=== PATIENT | male | born 1945 ===

== ENCOUNTER → 2022-10-13 | Emergency (ER) | payer OTHER ==
[~2022-10-13] MED LIST: ACETAMINOPHEN 325 MG TABLET PO PRN; ASPIRIN 81 MG CHEWABLE TABLET PO SCH; D10W 125 ML IV PRN; D50W 25 GM/50 ML SYRINGE IV PRN; GLUCAGON 1 MG/VIAL IM PRN; HEPARIN 5000 UNIT/ML 1 ML VIAL SQ SCH; HYDROCODONE/APAP 10/325 TAB ONE; HYDROCODONE/APAP 10/325 TAB PO PRN; INSULIN -REGULAR HUMAN 50 UNIT/0.5 ML ML SQ SCH; MORPHINE 2 MG/ML SYR ONE; ONDANSETRON 4 MG/2 ML VIAL IV PRN; ONDANSETRON 4 MG/2 ML VIAL ONE
[2022-10-13 05:10] LABS: Absolute Lymphocytes (CBC) 0.5 K/uL (0.7-4.9); Hematocrit 30.9 % (39.6-49.0); Lymphocytes % 11.2 % (15.3-44.8); MPV 10.4 fL (7.6-11.3); RBC Red Blood Cell Count 3.36 M/uL (4.33-5.43)
[2022-10-13 05:30] LABS: Potassium 5.1 mEq/L (3.5-5.1); Troponin High Sensitivity 34.9 pg/mL (<58.9)
--- NOTE | 2022-10-13 06:56 | EDPHYS ---
Physician Documentation [facility] Name: Jose Angel Miles Age: 76 yrs Sex: Male : 1945 Arrival Date: 10/13/2022 Time: : Bed 5 Private MD: ED Physician Collin Stone HPI: 10/13 05:11 This 76 yrs old Male presents to ER via EMS with complaints of Right hip and shoulder kdr pain. 05:11 Patient and report that he fell earlier today while at dialysis. states that kdr when she arrived to pick him up she saw him on the floor. She states that he is legally blind and apparently did not see a bump on the floor that he tripped over. Patient's states that she was able to help him to his feet and he was able to get into the car and home then up some stairs. Once he laid down for a while, his right hip pain and shoulder pain began to worsen and now he is unable to bear weight on the right side. Patient denies hitting his head or any loss of consciousness. He does not appear acutely ill or in need of emergent intervention but certainly is uncomfortable on the right side of his body. Onset: The symptoms/episode began/occurred suddenly, just prior to arrival, today. Severity of symptoms: At their worst the symptoms were mild in the emergency department the symptoms are unchanged. The patient has not experienced similar symptoms in the past. The patient has not recently seen a physician. Historical: - Allergies: 04:41 Prednisone; as6 04:41 Metoprolol Tartrate; as6 - PMHx: 04:41 Myocardial infarction; Diabetes mellitus; dialysis MWF; as6 - PSHx: 04:41 knee; Coronary artery bypass graft; eye; pacemaker; as6 - Immunization history:: Client reports receiving the 2nd dose of the Covid vaccine, Anevia. - Social history:: Smoking status: Patient/guardian denies using tobacco, the patient reports quitting approximately 1 years ago. ROS: 05:11 Constitutional: Negative for fever, chills, and weight loss, Eyes: Negative for injury, kdr pain, redness, and discharge, ENT: Negative for injury, pain, and discharge, Neck: Negative for injury, pain, and swelling, Cardiovascular: Negative for chest pain, palpitations, and edema, Respiratory: Negative for shortness of breath, cough, wheezing, and pleuritic chest pain, Abdomen/GI: Negative for abdominal pain, nausea, vomiting, diarrhea, and constipation, Back: Negative for injury and pain, : Negative for injury, bleeding, discharge, and swelling, Skin: Negative for injury, rash, and discoloration, Neuro: Negative for headache, weakness, numbness, tingling, and seizure activity. Psych: Negative for depression, anxiety, suicide ideation, homicidal ideation, and hallucinations, Allergy/Immunology: Negative for hives, rash, and allergies, Endocrine: Negative for neck swelling, polydipsia, polyuria, polyphagia, and marked weight changes, Hematologic/Lymphatic: Negative for swollen nodes, abnormal bleeding, and unusual bruising. 05:11 MS/extremity: Positive for injury or acute deformity, decreased range of motion, pain, tenderness, of the right femoral area, right hip, anterior aspect of right shoulder and posterior aspect of right shoulder. Exam: 04:39 ECG was reviewed by the Attending Physician. kdr 05:11 Constitutional: This is a well developed, well nourished patient who is awake, alert, kdr and in no acute distress. Head/Face: Normocephalic, atraumatic. Eyes: Pupils equal round and reactive to light, extra-ocular motions intact. Lids and lashes normal. Conjunctiva and sclera are non-icteric and not injected. Cornea within normal limits. Periorbital areas with no swelling, redness, or edema. Neck: Trachea midline, no thyromegaly or masses palpated, and no cervical lymphadenopathy. Supple, full range of motion without nuchal rigidity, or vertebral point tenderness. No Meningismus. Chest/axilla: Normal chest wall appearance and motion. Nontender with no deformity. No lesions are appreciated. Cardiovascular: Regular rate and rhythm with a normal S1 and S2. No gallops, murmurs, or rubs. Normal PMI, no JVD. No pulse deficits. Respiratory: Lungs have equal breath sounds bilaterally, clear to auscultation and percussion. No rales, rhonchi or wheezes noted. No increased work of breathing, no retractions or nasal flaring. Abdomen/GI: Soft, non-tender, with normal bowel sounds. No distension or tympany. No guarding or rebound. No evidence of tenderness throughout. Back: No spinal tenderness. No costovertebral tenderness. Full range of motion. Neuro: Awake and alert, GCS 15, oriented to person, place, time, and situation. Cranial nerves II-XII grossly intact. Motor strength 5/5 in all extremities. Sensory grossly intact. Cerebellar exam normal. Normal gait. Psych: Awake, alert, with orientation to person, place and time. Behavior, mood, and affect are within normal limits. 05:11 Musculoskeletal/extremity: Extremities: grossly normal except: noted in the right femoral area and right hip: decreased ROM, pain, tenderness, noted in the anterior aspect of right shoulder and posterior aspect of right shoulder: decreased ROM, pain. 05:11 Skin: Appearance: ecchymosis, noted on the, , that are moderate, that are marked, and are diffusely located, Patient has significant chronic ecchymosis on his extremities. Vital Signs: 04:41 BP 118 / 59; Pulse 54; Resp 18 S; Temp 97.9(TE); Pulse Ox 97% on R/A; Weight 68.04 kg as6 (R); Height 5 ft. 8 in. (R); Pain 3/10; 06:41 BP 105 / 57; Pulse 50; Resp 14; Pulse Ox 96% ; vc1 07:13 BP 109 / 60; Pulse 52; Resp 16; Pulse Ox 96% ; Pain 8/10; iw 08:26 BP 113 / 64; Pulse 51; Resp 18; Pulse Ox 96% on R/A; ld1 04:41 Body Mass Index 22.81 (68.04 kg, 172.72 cm) as6 04:41 Pain Scale: Adult as6 07:13 Pain Scale: Adult iw MDM: 06:55 Patient medically screened. kdr 21:56 Data reviewed: vital signs, nurses notes. ED course: Patient was stable in the ED and kdr admitted to the floor in good condition. The patient and his were happy with the care provided the plan for admission. 10/13 04:33 Order name: Basic Metabolic Panel [facility] 10/13 04:33 Order name: CBC with Diff [facility] 10/13 04:33 Order name: Troponin HS [facility] 10/13 04:39 Order name: CPK [facility] 10/13 09:26 Order name: Urinalysis w/ reflexes [facility] 10/13 09:26 Order name: Basic Metabolic Panel [facility] 10/13 09:26 Order name: CBC with Automated Diff EDMS 10/13 04:33 Order name: XRAY Chest (1 view) kdr 10/13 04:38 Order name: CT Traumagram (Head C Spine CAP wo con) kdr 10/13 04:38 Order name: XRAY Pelvis kdr 10/13 04:38 Order name: Shoulder Right (2 View) XRAY kdr 10/13 04:33 Order name: EKG; Complete Time: 04:34 kdr 10/13 09:26 Order name: Renal EDMS 10/13 04:33 Order name: Cardiac monitoring; Complete Time: 05:04 kdr 10/13 04:33 Order name: EKG - Nurse/Tech; Complete Time: 05:04 kdr 10/13 04:33 Order name: IV Saline Lock; Complete Time: 05:04 kdr 10/13 04:33 Order name: Labs collected and sent; Complete Time: 05:04 kdr 10/13 04:33 Order name: O2 Per Protocol; Complete Time: 04:40 kdr 10/13 04:33 Order name: O2 Sat Monitoring; Complete Time: 04:40 kdr Administered Medications: 05:04 Drug: morphine IVP or IV 2 mg Route: IVP; Infused Over: 4 mins; Site: right wrist; as6 05:04 Drug: Ondansetron IVP 4 mg Route: IVP; Site: right wrist; as6 07:14 Follow up: Response: No adverse reaction iw 06:25 Drug: morphine IVP or IV 2 mg Route: IVP; Infused Over: 4 mins; Site: right forearm; as6 07:14 Follow up: Response: No adverse reaction; Pain is unchanged, physician notified; Other; iw PAIN 01/28 09:08 Drug: HYDROcodone-acetaminophen PO 10 mg-325 mg 1 tabs Route: PO; iw Disposition Summary: 10/13/22 06:55 Hospitalization Ordered Hospitalization Status: Inpatient Admission kdr Provider: Merlin Sharma Location: Telemetry/MedSurg (Inpatient) kdr Condition: Fair kdr Problem: new kdr Symptoms: have improved kdr Bed/Room Type: Standard kdr Room Assignment: kdr Diagnosis - Right closed intertrochanteric fracture of the femur kdr Forms: - Medication Reconciliation Form kdr - SBAR form kdr Signatures: Dispatcher [employer] EDNJ Rittger, Collin, Emily Burroughs MD, RN RN iw Gonzalez Cohn, RN RN as6
--- NOTE | 2022-10-13 06:56 | ER ---
Nurse's Notes 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 pt went home and the pain as6 to his ride side of his body continued to grow so he decided to get checked out. Coronavirus screen: At this time, the client does not indicate any symptoms associated with coronavirus-19. Ebola Screen: No symptoms or risks identified at this time. Initial Sepsis Screen: Does the patient meet any 2 criteria? No. Patient's initial sepsis screen is negative. Does the patient have a suspected source of infection? No. Patient's initial sepsis screen is negative. Risk Assessment: Do you want to hurt yourself or someone else? Patient reports no desire to harm self or others. Onset of symptoms was October 12, 2022. 04:41 Acuity: SARINA 3 as6 04:41 Method Of Arrival: EMS: [facility] as6 Historical: - Allergies: 04:41 Prednisone; as6 04:41 Metoprolol Tartrate; as6 - PMHx: 04:41 Myocardial infarction; Diabetes mellitus; dialysis MWF; as6 - PSHx: 04:41 knee; Coronary artery bypass graft; eye; pacemaker; as6 - Immunization history:: Client reports receiving the 2nd dose of the Covid vaccine, pfizer. - Social history:: Smoking status: Patient/guardian denies using tobacco, the patient reports quitting approximately 1 years ago. Screenin:44 [facility] ED Fall Risk Assessment (Adult) History of falling in the last 3 months, as6 including since admission Yes- single mechanical fall (1 pt) Confusion or Disorientation No (0 pts) Intoxicated or Sedated No (0 pts) Impaired Gait No (0 pts) Mobility Assist Device Used No (0 pt) Altered Elimination No (0 pt) Score/Fall Risk Level 0 - 2 = Low Risk. Abuse screen: Denies threats or abuse. Denies injuries from another. Nutritional screening: No deficits noted. Tuberculosis screening: No symptoms or risk factors identified. Assessment: 05:21 General: Appears uncomfortable, Behavior is calm, cooperative. Pain: Complains of pain as6 in right arm and pelvis and right hip and right femoral area and posterior aspect of right shoulder and anterior aspect of right shoulder. Neuro: Level of Consciousness is awake, alert, obeys commands, Oriented to person, place, time, situation. Cardiovascular: Capillary refill < 3 seconds Patient's skin is warm and dry. Respiratory: Respiratory effort is even, unlabored, Respiratory pattern is regular, symmetrical, Breath sounds are clear bilaterally. GI: No deficits noted. No signs and/or symptoms were reported involving the gastrointestinal system. : No deficits noted. No signs and/or symptoms were reported regarding the genitourinary system. EENT: No deficits noted. No signs and/or symptoms were reported regarding the EENT system. Derm: Bruising that is dark purple, on right arm. 06:41 Reassessment: No changes from previously documented assessment. Patient and/or family vc1 updated on plan of care and expected duration. Pain level reassessed. Patient is alert, oriented x 3, equal unlabored respirations, skin warm/dry/pink. Patient states symptoms have not improved. 07:12 General: Appears uncomfortable, Behavior is cooperative. Pain: Complains of pain in iw right hip. Pain: Pain currently is 8 out of 10 on a pain scale. Neuro: Level of Consciousness is awake, alert, obeys commands, Oriented to person, place, time, situation. Cardiovascular: Patient's skin is warm and dry. Respiratory: Respiratory effort is even, unlabored, Respiratory pattern is regular. GI: Abdomen is flat, non-distended. Derm: Skin is pink, warm \T\ dry. Musculoskeletal: Range of motion: limited in right hip. 11:50 Reassessment: Patient appears in no apparent distress at this time. Patient and/or iw family updated on plan of care and expected duration. Pain level reassessed. Patient is alert, oriented x 3, equal unlabored respirations, skin warm/dry/pink. Vital Signs: 04:41 BP 118 / 59; Pulse 54; Resp 18 S; Temp 97.9(TE); Pulse Ox 97% on R/A; Weight 68.04 kg as6 (R); Height 5 ft. 8 in. (R); Pain 3/10; 06:41 BP 105 / 57; Pulse 50; Resp 14; Pulse Ox 96% ; vc1 07:13 BP 109 / 60; Pulse 52; Resp 16; Pulse Ox 96% ; Pain 8/10; iw 08:26 BP 113 / 64; Pulse 51; Resp 18; Pulse Ox 96% on R/A; ld1 04:41 Body Mass Index 22.81 (68.04 kg, 172.72 cm) as6 04:41 Pain Scale: Adult as6 07:13 Pain Scale: Adult iw ED Course: 04:27 Patient arrived in ED. rv1 04:32 Collin Stone MD is Attending Physician. kdr 04:40 Gonzalez Cohn, RENE is Primary Nurse. as6 04:40 Arm band placed on right wrist. as6 04:44 Triage completed. as6 04:45 Bed in low position. Call light in reach. Side rails up X2. as6 05:04 Inserted saline lock: 22 gauge in right wrist, using aseptic technique. Blood collected.as6 05:05 XRAY Chest (1 view) In Process Unspecified. EDMS 05:11 XRAY Pelvis In Process Unspecified. EDMS 05:11 Shoulder Right (2 View) XRAY In Process Unspecified. EDMS 05:22 CT Traumagram (Head C Spine CAP wo con) In Process Unspecified. EDMS 06:54 Merlin Sharma MD is Hospitalizing Provider. kdr 11:50 No provider procedures requiring assistance completed. iw Administered Medications: 05:04 Drug: morphine IVP or IV 2 mg Route: IVP; Infused Over: 4 mins; Site: right wrist; as6 05:04 Drug: Ondansetron IVP 4 mg Route: IVP; Site: right wrist; as6 07:14 Follow up: Response: No adverse reaction iw 06:25 Drug: morphine IVP or IV 2 mg Route: IVP; Infused Over: 4 mins; Site: right forearm; as6 07:14 Follow up: Response: No adverse reaction; Pain is unchanged, physician notified; Other; iw PAIN 01/28 09:08 Drug: HYDROcodone-acetaminophen PO 10 mg-325 mg 1 tabs Route: PO; iw Medication: 04:44 VIS not applicable for this client. as6 Outcome: 06:55 Decision to Hospitalize by Provider. kdr 12:11 Patient left the ED. iw Signatures: Dispatcher [employer] EDMS Collin Stone MD MD kdr Williams, Irene, RN RN iw Margareth Coe RN RN ld1 Gonzalez Cohn RN RN as6 Tiera Bone, RN RN vc1 Saud, Linette [facility]
--- NOTE | 2022-10-13 09:52 | P.HP ---
Certification for Inpatient Patient admitted to: Inpatient With expected LOS: >2 Midnights Patient will require the following post-hospital care: None Practitioner: I am a practitioner with admitting privileges, knowledge of patient current condition, hospital course, and medical plan of care. Services: Services provided to patient in accordance with Admission requirements found in Title 42 Section 412.3 of the Code of Federal Regulations <MichelleliliIrena novoa Marcus - Last Filed: 10/13/22 11:14> Patient History Date of Service: 10/13/22 Reason for admission: Right hip pain History of Present Illness: Patient is a 76-year-old male with a past medical history significant for DM 2, TN, ESRD, CHF who presents with complaint of right hip pain onset today. Patient reported that he fell after leaving dialysis yesterday. Patient was found on the floor by his spouse when she came to pick patient up. Patient reported that he went home and went to bed. This morning patient reported that he started having pain this morning when he woke up. Patient reported that he was unable to get out of bed and started having excruciating pain in the right knee. Patient rated pain as 10/10 in severity and described pain as sharp in quality. On examination patient noted with petechiae in the right hip and right knee as well as bilateral lower extremity edema. Patient also reports pain in the right shoulder. Patient denies any other signs and symptoms. Symptoms are aggravated or relieved by nothing. Family called EMS who brought patient to the hospital for medical evaluation. Of note, patient doctors are at [facility]. - Past Medical/Surgical History -: TN -: CAD -: ESRD -: DM 2 -: CABG - Family History Family History: Reviewed- Non-Contributory - Social History Smoking Status: Never smoker Alcohol use: No CD- Drugs: No Caffeine use: Yes Place of Residence: Home <Irena Boucher - Last Filed: 10/13/22 11:14> Date of Service: 10/13/22 <Merlin Sharma - Last Filed: 10/13/22 18:46> Allergies prednisone Allergy (Verified 10/13/22 07:30) Hives/Rash Review of Systems General: Unremarkable Eyes: Unremarkable ENT: Unremarkable Respiratory: Unremarkable Cardiovascular: Unremarkable Gastrointestinal: Unremarkable Genitourinary: Unremarkable Musculoskeletal: Shoulder Pain, Other (Right hip pain) Integumentary: Other (petechiae on right hip and Knee ) Neurological: Unremarkable Lymphatics: Unremarkable <CitlalyColtfara Novoa - Last Filed: 10/13/22 11:14> Physical Examination - Physical Exam General: Alert, In no apparent distress, Oriented x3, Cooperative HEENT: Atraumatic, PERRLA, Mucous membr. moist/pink, EOMI, Sclerae nonicteric Neck: Supple, 2+ carotid pulse no bruit, No LAD, Without JVD or thyroid abnormality Respiratory: Clear to auscultation bilaterally, Normal air movement Cardiovascular: Regular rate/rhythm, Normal S1 S2, Edema Capillary refill: <2 Seconds Gastrointestinal: Normal bowel sounds, Soft and benign, No tenderness Musculoskeletal: No clubbing, No swelling, No contractures, Tenderness Integumentary: No rashes, No breakdown, No significant lesion, Other (Right hip and knee petechiae) Neurological: Normal speech, Normal strength at 5/5 x4 extr, Normal tone, Normal affect Lymphatics: No axilla or inguinal lymphadenopathy - Studies Laboratory Data (last 24 hrs) 10/13/22 05:01: WBC 4.10 L, Hgb 9.9 L, Hct 30.9 L, Plt Count 79 L 10/13/22 05:01: Sodium 128 L, Potassium 5.1, BUN 51 H, Creatinine 3.31 H, Glucose 105 <Irena Boucher - Last Filed: 10/13/22 11:14> - Studies Laboratory Data (last 24 hrs) 10/13/22 05:01: WBC 4.10 L, Hgb 9.9 L, Hct 30.9 L, Plt Count 79 L 10/13/22 05:01: Sodium 128 L, Potassium 5.1, BUN 51 H, Creatinine 3.31 H, Glucose 105 <Merlin Sharma - Last Filed: 10/13/22 18:46> Assessment and Plan - Plan --Right hip pain. X-ray of right hip indicates an avulsion injury of the right greater trochanter. Orthopedic surgeon consulted. We will manage pain with current pain medication regimen. --DM2. BS monitoring with sliding scale insulin. --ESRD. Nephrology consulted. We will await further recommendations. --History of TN and CABG. Continue aspirin. --Anemia of chronic disease. H&H stable. We will continue to monitor hemoglobin and transfuse if hemoglobin less than 7.0 -- Hyponatremia. Nephrology on board. Further management per electrical linesworker. --Mild hyperkalemia. Potassium level 5.1. We will repeat a BMP and treat accordingly. Further management per electrical linesworker. --Thrombocytopenia. Family reported that patient had a biopsy with his doctors at [facility] to find out why patient is having persistent thrombocytopenia. Continue supportive care --Chronic systolic or diastolic CHF. Patient noted with bilateral lower extremity edema. Family reported that patient has a history of CHF. BNP pending. Dialysis schedule per nephrology schedule. Continue supportive care. --DVT prophylaxis with SCDs. Discharge Plan: Home Plan to discharge in: Greater than 2 days - Advance Directives Does patient have a Living Will: No Does patient have a Durable POA for Healthcare: No - Code Status/Comfort Care Code Status Assessed: Yes Physician Review: Patient Assessed, Agree with Above Assessment and Plan Critical Care: No <Irena Boucher - Last Filed: 10/13/22 11:14> Physician Review: Patient Assessed, Agree with Above Assessment and Plan Physician Review Additional Text: I was asked to admit Mr. Miles. However, when I came to the Emergency Department, he declined admission and stated that he would like to be transferred to [facility] for continuity of care. I completed doc-to-doc with Dr. Boaz Spears ([facility]), who has generously accepted transfer. Please refer to the Emergency Medicine documentation for the remainder of his ED course. Merlin Sharma M.D. <Merlin Sharma - Last Filed: 10/13/22 18:46>
--- NOTE | 2022-10-13 09:54 | P.HP ---
Patient History Date of Service: 10/13/22 Allergies prednisone Allergy (Verified 10/13/22 07:30) Hives/Rash Physical Examination - Studies Laboratory Data (last 24 hrs) 10/13/22 05:01: WBC 4.10 L, Hgb 9.9 L, Hct 30.9 L, Plt Count 79 L 10/13/22 05:01: Sodium 128 L, Potassium 5.1, BUN 51 H, Creatinine 3.31 H, Glucose 105 Assessment and Plan - Advance Directives Does patient have a Living Will: No Does patient have a Durable POA for Healthcare: No
[2022-10-13 12:34] VITALS: TEMP 97.9
[2022-10-13 12:35] VITALS: O2SAT 96
[2022-10-13 12:37] VITALS: BP 113/64
--- NOTE | 2022-10-13 17:12 | RAD REPORT ---
EXAM DESCRIPTION: CT - Head C Spine Cap Milvia Parker - 10/13/2022 6:37 am CLINICAL HISTORY: 76 years Male Fall from standing TECHNIQUE: Multiple axial CT images of the brain, cervical spine, chest, abdomen and pelvis were per formed followed by sagittal and coronal reconstructed images. The CT study is performed according to ALARA (as low as reasonably achievable) or ALARA/IMAGE GENTLY, with automatic adjustment of mA and/or kV according to patient size. Performed on: 10/13/2022 at 5:10 AM COMPARISON: None. FINDINGS: CT HEAD: There is no evidence of mass, acute mass effect or midline shift. There are no acute extra-axial flui d collections. There is no evidence of acute intracranial hemorrhage. The cerebral sulci and ventricles are prominent consistent with mild cerebral volume loss. There are scattered areas of decreased attenuation within the subcortical and periventricular white m atter most likely due to mild chronic microangiopathy. There are atherosclerotic calcifications along the cavernous carotid arteries and distal vertebral arteries. There is no significant mucosal thickening of the paranasal sinuses. The mastoid air cells are clear. The orbital contents are grossly unremarkable. No acute osseous abnormalities are identified. No focal soft tissue abnormalities are identified. CT CERVICAL SPINE: The cervical vertebrae are grossly normal in height. There is mild loss of height at C6 likely due to degenerative changes. There is mild anterolisthesis of C3 relative to C4 and C4 relative to C5, like ly degenerative in nature. There is moderate disc space narrowing at C5-C6 and C6-C7. Bone minerali zation is normal. There is mild degenerative spurring along the vertebral endplates throughout the cervical spine most pronounced at C5-C6 and C6-C7. The atlanto-axial articulation is preserved and th e odontoid process is intact. There is mild irregularity of the posterior aspect of the right occipital condyle and right lateral a spect of the odontoid process likely related to chronic degenerative changes. Subtle small avulsion f ractures are not entirely excluded but considered less likely. There is normal alignment of the facet joints on the parasagittal images. There are mild to moderate degenerative changes of the facet joints. There is no definite acute fracture or acute subluxation. There is no significant canal stenosis. T here is multilevel bilateral neural foraminal stenosis secondary to uncovertebral joint and facet rogelio nt hypertrophy. There are calcifications along the carotid and vertebral arteries. The lung apices are clear. CHEST: Lungs: The lungs are well-expanded. There is mild bibasilar opacification likely due to a combination of fibrosis and atelectasis. Trace effusions are not excluded. There is mild elevation of the left h emidiaphragm. Heart: The heart is normal in size. There is no pericardial effusion. There are moderate coronary artery calcifications. There is a single lead left subclavian AICD. There are remote postsurgical ch anges of the mediastinum. Mediastinum: The mediastinum is unremarkable. The mediastinal vessels are normal in caliber and con tour. There are moderate atherosclerotic calcifications along the thoracic aorta. Bones: No acute osseous abnormalities are identified. There are degenerative changes of the shoulders and spine. Soft tissues: No focal soft tissue abnormalities are identified. Lymphadenopathy: No pathologic hilar, mediastinal or axillary lymphadenopathy is identified. ABDOMEN/PELVIS: Limitations: There is artifact on the images related to the patient's arms being down by his side dur ing scanning. This results in degradation of image quality. Liver: The liver is normal in size and configuration. No focal hepatic abnormalities are identified. Liver attenuation is within normal limits. Spleen: The spleen is normal is size, configuration and attenuation. Gallbladder and bile duct: The gallbladder is well distended and unremarkable. There is no biliary ductal dilatation. Pancreas: The pancreas is grossly normal in size and configuration. Adrenal Glands: There is mild fullness of the left adrenal gland. The right adrenal gland is grossly unremarkable. Kidneys: The kidneys are normal in size and configuration. There is no evidence of hydronephrosis. Th ere is no evidence of nephrolithiasis. There are renal vascular calcifications. No definite solid or cystic renal mass lesions are identified. Stomach: The stomach is grossly normal. There is a small sliding-type hiatal hernia. Bowel: The bowel gas pattern is non specific and non obstructive. Appendix: The appendix is normal. Free air: There is no evidence of free air. Free fluid: There is a small volume of nonspecific free fluid in the pelvis, anterior to the liver an d left paracolic gutter. Vasculature: The aorta is normal in caliber and contour. There are moderate atherosclerotic calcifica tions along the abdominal aorta and major branch vessels. The inferior vena cava is grossly unremarka ble. Lymphadenopathy: No pathologic lymphadenopathy is identified. Bladder: The bladder is well distended and smooth in contour. Bilateral bladder diverticula are suspe cted. Reproductive: The prostate gland is grossly within normal limits. Bones: There is a mildly displaced intertrochanteric fracture of the proximal right femur. There are advanced degenerative changes of the lumbar spine and there is mild scoliosis of the lumbar spine. Th ere are pars defects bilaterally at the L5 level Soft tissues: No acute soft tissue abnormalities are identified. IMPRESSION: CT HEAD: 1. No evidence of acute intracranial pathology. 2. Mild cerebral atrophy with findings compatible with chronic microangiopathy. CT CERVICAL SPINE: 1. No definite acute fracture or acute subluxation of the cervical spine. 2. Mild irregularity of the posterior aspect of the right occipital condyle and right lateral aspec t of the odontoid process likely related to chronic degenerative changes. Subtle small avulsion fract ures are not entirely excluded but considered less likely. 3. Degenerative changes of the cervical spine as described above. CT CHEST: 1. No evidence of acute intrathoracic disease. 2. Remote postsurgical changes of the mediastinum. 3. Moderate atherosclerotic calcifications along the thoracic aorta and major branch vessels. 4. Mild by basilar opacification likely due to a combination of fibrosis and atelectasis. Trace eff usions are not excluded. 5. Mild elevation of the left hemidiaphragm. 6. Moderate coronary artery calcifications. CT ABDOMEN AND PELVIS: 1. Small volume of nonspecific free fluid in the pelvis, anterior to the liver and left paracolic g utter. The etiology of this is not certain. 2. Mildly displaced intertrochanteric fracture of the proximal right femur. 3. Bilateral L5 pars defects. There are advanced degenerative changes of the lumbar spine and mild scoliosis of the lumbar spine. 4. Small sliding-type hiatal hernia. 5. Suspect bilateral bladder diverticula. 6. There is artifact on the images related to the patient's arms being down by his side during scan doroteo. This results in degradation of image quality. Electronically signed by: Xiao Mcdonald DO 10/13/2022 6:00 AM CDT Due to temporary technical issues with the PACS/Fluency reporting system, reports are being signed by the in house radiologists without review as a courtesy to insure prompt reporting. The interpreting radiologist is fully responsible for the content of the report.
--- NOTE | 2022-10-13 17:14 | RAD REPORT ---
EXAM DESCRIPTION: RAD - Pelvis - 10/13/2022 5:09 am CLINICAL HISTORY: Hip pain - right TECHNIQUE: Frontal views of the pelvis COMPARISON: None available for comparison FINDINGS: Lucencies along the right greater trochanter consistent with avulsion injury. Limited visualization of the right femoral neck secondary to positioning Prominent atherosclerotic calcifications. Pubic rami within normal limits. Images limited by technique and overlying artifact. IMPRESSION: Findings consistent with avulsion injury of the right greater trochanter. Electronically signed by: Mandeep Sosa MD 10/13/2022 5:26 AM CDT Due to temporary technical issues with the PACS/Fluency reporting system, reports are being signed by the in house radiologists without review as a courtesy to insure prompt reporting. The interpreting radiologist is fully responsible for the content of the report.
--- NOTE | 2022-10-13 17:16 | RAD REPORT ---
EXAM DESCRIPTION: RAD - Shoulder Right 2 View - 10/13/2022 5:09 am CLINICAL HISTORY: 76 years Male PAIN, Shoulder Right 2 View TECHNIQUE: 2 x-ray views of the right shoulder were performed on 10/13/2022 at 4:46 AM. COMPARISON: None FINDINGS: There is no evidence of fracture or dislocation. There is narrowing of the glenohumeral dayday int and there is mild hypertrophic spurring of the humeral head. There are mild degenerative changes of the acromioclavicular joint. There is a small calcific density adjacent to the greater tuberosity which may be related to calcific tendinitis. No focal lytic or sclerotic bone lesions are seen. Bone mineralization is normal. No acute soft tissue abnormalities are identified. There are remote postsurgical changes of the media stinum. There is a partially imaged pacemaker lead. IMPRESSION: No evidence of acute osseous injury involving the right shoulder. There are mild degener ative changes of the glenohumeral joint and acromioclavicular joint. Possible chronic calcific tendin itis. Electronically signed by: Xiao Mcdonald DO 10/13/2022 5:28 AM CDT Due to temporary technical issues with the PACS/Fluency reporting system, reports are being signed by the in house radiologists without review as a courtesy to insure prompt reporting. The interpreting radiologist is fully responsible for the content of the report.
--- NOTE | 2022-10-13 17:17 | RAD REPORT ---
EXAM DESCRIPTION: RAD - Chest Single View - 10/13/2022 5:03 am CLINICAL HISTORY: CHEST PAIN TECHNIQUE: AP chest COMPARISON: None available for comparison FINDINGS: CHEST: Heart: The cardiomediastinal silhouette is within normal limits. Status post median sternotomy. Pacem coty in place. Lungs: No focal consolidation. Elevation of the left hemidiaphragm. Mediastinum: Unremarkable Pleura: No appreciable effusion. No pneumothorax. Bones: Intact IMPRESSION: Elevation of the left hemidiaphragm. No other radiographic evidence of acute cardiopulmo nary disease. Electronically signed by: Mandeep Sosa MD 10/13/2022 5:16 AM CDT Due to temporary technical issues with the PACS/Fluency reporting system, reports are being signed by the in house radiologists without review as a courtesy to insure prompt reporting. The interpreting radiologist is fully responsible for the content of the report.
--- NOTE | 2022-10-14 04:53 | EKG ---
Test Date: 2022-10-13 Test Time: 04:59:27 Spanisher: JYOTI MEASUREMENT RESULTS: Intervals: Rate: 53 [place]: QRSD: 104 QT: 458 QTc: 429 [place]: P: [place]: QRS: -8 T: 215 INTERPRETIVE STATEMENTS: Atrial fibrillation with slow ventricular response ST & T wave abnormality, consider anterior ischemia Abnormal ECG No previous ECG available for comparison Electronically Signed On 10-14-22 04:52:03 CDT by Rafa Burgess
== END | disposition short-term general hospital (02) ==
LOC: ER 04:26
DX: S72.141A Displaced intertrochanteric fracture of right femur, initial encounter for closed fracture (principal); M25.511 Pain in right shoulder; Z99.2 Dependence on renal dialysis; Z95.1 Presence of aortocoronary bypass graft; Z95.0 Presence of cardiac pacemaker; Z88.8 Allergy status to other drugs, medicaments and biological substances
CPT/HCPCS: 93005; 85025; 80048; 36415; 82550; 84484; 70450; 71250; 72125; 71045; 72170; 73030; 99284; J2270 ×2; J2405

== ENCOUNTER 2022-10-20 10:25 | Inpatient (IN) | payer OTHER ==
[2022-10-20 10:41] VITALS: BMI 24.5
--- OUTSIDE RECORDS SUMMARY | 2022-10-20 11:11 | XMS REPORT | Continuity of Care Document ---
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 MEALS, [place] 3.125 mg 00 First dose Medic al on Wed09/30/22 at 1045, Until Discontinu ed, Routine ferrous Yes 325mg 325 mg, Univer s sulfate 09-30 Oral, ity of tablet 325 14:00: DAILY, [place] mg 00 First dose Medical on Wed09/30/22 at 0900, Until Discontinu ed, Routine docusate Yes 100mg 100 mg, Unive rs (COLACE) 09-30 Oral, ity of capsule 100 14:00: DAILY, [place] 00 First dose Medical on Wed09/30/22 at 0900, Until Discontinu ed, Routine phytonadion 2022- No 10mg IV Unive rs e (VITAMIN 09-30 Piggyback, it y of K) 10 mg in 14:00: 15:50 DAILY, 1 [place] NaCl 0.9% 00 :00 dose, Medical (NS) First dose Branch piggyback on Wed09/30/22 at 0900, 50 mL sevelamer Yes 800mg 800 mg, Univ ers (RENVELA) 09-30 Oral, TID ity o f tablet 800 13:00: MEALS, [place] mg 00 First dose Medical on Wed [place] 09/30/22 at 0800, Until Discontinu ed, Routine pravastatin 0 2022- No 40mg 40 mg, Uni vers (PRAVACHOL) 09-30 04-16 Oral, QHS, i ty of tablet 40 02:00: 16:29 First dose [place] mg 00 :55 on [facility] 09/29/22 at Branch 2100, Until Discontinu ed, Routine midodrine 0 Yes 5mg 5 mg, [facility] (PROAMATINE 12 Oral, TID, it y of ) tablet 5 01:00: First dose [place] mg 00 on [facility] 09/29/22 at Branch 2000, Until Discontinu ed, Routine phytonadion 2022- No 10mg 10 mg, Uni vers e (vitamin 09-2912 Oral, ity of K1) 23:30: 01:15 ONCE, 1 [place] (MEPHYTON) 00 :00 dose, On Medic al tablet 10 [facility] mg 09/29/22 at 1830, Routine Sliding 2022-0 Yes Subcutaneo Univ ers Scale 4-11 us, TID ity of Insulin - 22:00: MEALS+HS, [place] as Lispro 00 First dose Medical (HumaLOG) + on [facility]sbg 09/29/22 at Testing 1700, Until Discontinu ed, Routine mupirocin 0 Yes Nasal, Univer s (BACTROBAN 11 Q12H, For ity of NASAL OINT) 21:18: 5 days, [place] 2 % nasal 56 First dose Medi juan ointment conditiona Branc h l, Routine ondansetron 0 Yes 4mg 4 mg, Slow [facility] (ZOFRAN 11 IV Push, ity of (PF)) 18:35: Q6HPRN, [place] injection 4 21 Starting Medi juan mg on [facility] 09/29/22 at 1335, Until Discontinu ed, Routine, Nausea and Vomiting (N/V) acetaminoph 0 Yes 650mg 650 mg, Un devi en 4-11 Oral, ity of (TYLENOL) 18:35: Q6HPRN, [place] tablet 650 06 Starting Medic al mg on [facility] 09/29/22 at 1335, Until Discontinu ed, Routine, Pain (scale 1-3) levocetiriz 2023-0 Yes [id number] 5mg Take 1 [facility] ine 5 mg 4-03 tablet by ity of tablet 00:00: mouth [place] 00 every Medical evening. Branch As needed ferrous 3-0 Yes [id number] 325mg Take 1 Un devi sulfate 4-03 tablet by ity of (IRON) 325 00:00: mouth in [place] mg (65 mg 00 the Medical iron) morning. Branch tablet levocetiriz 3-0 Yes [id number] 5mg Take 1 [facility] ine 5 mg 4-03 tablet by ity of tablet 00:00: mouth [place] 00 every Medical evening. Branch As needed ferrous 2022-0 Yes [id number] 325mg Take 1 Un devi sulfate 4-03 tablet by ity of (IRON) 325 00:00: mouth in [place] mg (65 mg 00 the Medical iron) morning. Branch tablet levocetiriz 2022-0 Yes [id number] 5mg Take 1 [facility] ine 5 mg 4-03 tablet by ity of tablet 00:00: mouth [place] 00 every Medical evening. Branch As needed ferrous 2022-0 Yes [id number] 325mg Take 1 Un devi sulfate 4-03 tablet by ity of (IRON) 325 00:00: mouth in [place] mg (65 mg 00 the Medical iron) morning. Branch tablet levocetiriz 3-0 Yes [id number] 5mg Take 1 [facility] ine 5 mg 4-03 tablet by ity of tablet 00:00: mouth [place] 00 every Medical evening. Branch As needed ferrous 2022-0 Yes [id number] 325mg Take 1 Un devi sulfate 4-03 tablet by ity of (IRON) 325 00:00: mouth in [place] mg (65 mg 00 the Medical iron) morning. Branch tablet levocetiriz 3-0 Yes [id number] 5mg Take 1 [facility] ine 5 mg 4-03 tablet by ity of tablet 00:00: mouth [place] 00 every Medical evening. Branch As needed ferrous 2023-0 Yes [id number] 325mg Take 1 Un devi sulfate 4-03 tablet by ity of (IRON) 325 00:00: mouth in [place] mg (65 mg 00 the Medical iron) morning. Branch tablet levocetiriz 2023-0 Yes [id number] 5mg Take 1 [facility] ine 5 mg 4-03 tablet by ity of tablet 00:00: mouth [place] 00 every Medical evening. Branch As needed ferrous 2023-0 Yes [id number] 325mg Take 1 Un devi sulfate 4-03 tablet by ity of (IRON) 325 00:00: mouth in [place] mg (65 mg 00 the Medical iron) morning. Branch tablet mirtazapine 2022-0 Yes [id number] 7.5mg Take 0.5 [facility] 15 mg 4-03 tablets by ity of tablet 00:00: mouth at [place] 00 bedtime. Medical Branch levocetiriz 2022-0 Yes [id number] 5mg Take 1 [facility] ine 5 mg 4-03 tablet by ity of tablet 00:00: mouth [place] 00 every Medical evening. Branch As needed ferrous 2022-0 Yes [id number] 325mg Take 1 Un devi sulfate 4-03 tablet by ity of (IRON) 325 00:00: mouth in [place] mg (65 mg 00 the Medical iron) morning. Branch tablet levocetiriz 2022-0 Yes [id number] 5mg Take 1 [facility] ine 5 mg 4-03 tablet by ity of tablet 00:00: mouth [place] 00 every Medical evening. Branch As needed ferrous 2022-0 Yes [id number] 325mg Take 1 Un devi sulfate 4-03 tablet by ity of (IRON) 325 00:00: mouth in [place] mg (65 mg 00 the Medical iron) morning. Branch tablet mirtazapine 2022-0 Yes [id number] 7.5mg Take 0.5 [facility] 15 mg 4-03 tablets by ity of tablet 00:00: mouth at [place] 00 bedtime. Medical Branch levocetiriz 2022-0 Yes [id number] 5mg Take 1 [facility] ine 5 mg 4-03 tablet by ity of tablet 00:00: mouth [place] 00 every Medical evening. Branch As needed ferrous 2022-0 Yes [id number] 325mg Take 1 Un devi sulfate 4-03 tablet by ity of (IRON) 325 00:00: mouth in [place] mg (65 mg 00 the Medical iron) morning. Branch tablet mirtazapine 2022-0 Yes [id number] 7.5mg Take 0.5 [facility] 15 mg 4-03 tablets by ity of tablet 00:00: mouth at [place] 00 bedtime. Medical Branch levocetiriz 2022-0 Yes [id number] 5mg Take 1 [facility] ine 5 mg 4-03 tablet by ity of tablet 00:00: mouth [place] 00 every Medical evening. Branch As needed ferrous 3-0 Yes [id number] 325mg Take 1 Un devi sulfate 4-03 tablet by ity of (IRON) 325 00:00: mouth in [place] mg (65 mg 00 the Medical iron) morning. Branch tablet mirtazapine 2022-0 Yes [id number] 7.5mg Take 0.5 [facility] 15 mg 4-03 tablets by ity of tablet 00:00: mouth at [place] 00 bedtime. Medical Branch levocetiriz 3-0 Yes [id number] 5mg Take 1 [facility] ine 5 mg 4-03 tablet by ity of tablet 00:00: mouth [place] 00 every Medical evening. Branch As needed ferrous 2022-0 Yes [id number] 325mg Take 1 Un devi sulfate 4-03 tablet by ity of (IRON) 325 00:00: mouth in [place] mg (65 mg 00 the Medical iron) morning. Branch tablet mirtazapine 3-0 Yes [id number] 7.5mg Take 0.5 [facility] 15 mg 4-03 tablets by ity of tablet 00:00: mouth at [place] 00 bedtime. Medical Branch levocetiriz 2022-0 Yes [id number] 5mg Take 1 [facility] ine 5 mg 4-03 tablet by ity of tablet 00:00: mouth [place] 00 every Medical evening. Branch As needed ferrous 3-0 Yes [id number] 325mg Take 1 Un devi sulfate 4-03 tablet by ity of (IRON) 325 00:00: mouth in [place] mg (65 mg 00 the Medical iron) morning. Branch tablet mirtazapine 3-0 Yes [id number] 7.5mg Take 0.5 [facility] 15 mg 4-03 tablets by ity of tablet 00:00: mouth at [place] 00 bedtime. Medical Branch levocetiriz 3-0 Yes [id number] 5mg Take 1 [facility] ine 5 mg 4-03 tablet by ity of tablet 00:00: mouth [place] 00 every Medical evening. Branch As needed ferrous 3-0 Yes [id number] 325mg Take 1 Un devi sulfate 4-03 tablet by ity of (IRON) 325 00:00: mouth in [place] mg (65 mg 00 the Medical iron) morning. Branch tablet mirtazapine 2023-0 Yes [id number] 7.5mg Take 0.5 [facility] 15 mg 4-03 tablets by ity of tablet 00:00: mouth at [place] 00 bedtime. Medical Branch levocetiriz 3-0 Yes [id number] 5mg Take 1 [facility] ine 5 mg 4-03 tablet by ity of tablet 00:00: mouth [place] 00 every Medical evening. Branch As needed ferrous 3-0 Yes [id number] 325mg Take 1 Un devi sulfate 4-03 tablet by ity of (IRON) 325 00:00: mouth in [place] mg (65 mg 00 the Medical iron) morning. Branch tablet mirtazapine 2022-0 Yes [id number] 7.5mg Take 0.5 [facility] 15 mg 4-03 tablets by ity of tablet 00:00: mouth at [place] 00 bedtime. Medical Branch levocetiriz 2022-0 Yes [id number] 5mg Take 1 [facility] ine 5 mg 4-03 tablet by ity of tablet 00:00: mouth [place] 00 every Medical evening. Branch As needed ferrous 2022-0 Yes [id number] 325mg Take 1 Un devi sulfate 4-03 tablet by ity of (IRON) 325 00:00: mouth in [place] mg (65 mg 00 the Medical iron) morning. Branch tablet mirtazapine 2022-0 Yes [id number] 7.5mg Take 0.5 [facility] 15 mg 4-03 tablets by ity of tablet 00:00: mouth at [place] 00 bedtime. Medical Branch levocetiriz 2022-0 Yes [id number] 5mg Take 1 [facility] ine 5 mg 4-03 tablet by ity of tablet 00:00: mouth [place] 00 every Medical evening. Branch As needed ferrous 2022-0 Yes [id number] 325mg Take 1 Un devi sulfate 4-03 tablet by ity of (IRON) 325 00:00: mouth in [place] mg (65 mg 00 the Medical iron) morning. Branch tablet mirtazapine 3-0 Yes [id number] 7.5mg Take 0.5 [facility] 15 mg 4-03 tablets by ity of tablet 00:00: mouth at [place] 00 bedtime. Medical Branch levocetiriz 3-0 Yes [id number] 5mg Take 1 [facility] ine 5 mg 4-03 tablet by ity of tablet 00:00: mouth [place] 00 every Medical evening. Branch As needed ferrous 3-0 Yes [id number] 325mg Take 1 Un devi sulfate 4-03 tablet by ity of (IRON) 325 00:00: mouth in [place] mg (65 mg 00 the Medical iron) morning. Branch tablet mirtazapine 2022-0 Yes [id number] 7.5mg Take 0.5 [facility] 15 mg 4-03 tablets by ity of tablet 00:00: mouth at [place] 00 bedtime. Medical Branch levocetiriz 2022-0 Yes [id number] 5mg Take 1 [facility] ine 5 mg 4-03 tablet by ity of tablet 00:00: mouth [place] 00 every Medical evening. Branch As needed ferrous 2022-0 Yes [id number] 325mg Take 1 Un devi sulfate 4-03 tablet by ity of (IRON) 325 00:00: mouth in [place] mg (65 mg 00 the Medical iron) morning. Branch tablet levocetiriz 2022-0 Yes [id number] 5mg Take 1 [facility] ine 5 mg 4-03 tablet by ity of tablet 00:00: mouth [place] 00 every Medical evening. Branch As needed ferrous 2022-0 Yes [id number] 325mg Take 1 Un devi sulfate 4-03 tablet by ity of (IRON) 325 00:00: mouth in [place] mg (65 mg 00 the Medical iron) morning. Branch tablet levocetiriz 2022-0 Yes [id number] 5mg Take 1 [facility] ine 5 mg 4-03 tablet by ity of tablet 00:00: mouth [place] 00 every Medical evening. Branch As needed ferrous 2022-0 Yes [id number] 325mg Take 1 Un devi sulfate 4-03 tablet by ity of (IRON) 325 00:00: mouth in [place] mg (65 mg 00 the Medical iron) morning. Branch tablet levocetiriz 3-0 Yes [id number] 5mg Take 1 [facility] ine 5 mg 4-03 tablet by ity of tablet 00:00: mouth [place] 00 every Medical evening. Branch As needed ferrous 3-0 Yes [id number] 325mg Take 1 Un devi sulfate 4-03 tablet by ity of (IRON) 325 00:00: mouth in [place] mg (65 mg 00 the Medical iron) morning. Branch tablet levocetiriz 3-0 Yes [id number] 5mg Take 1 [facility] ine 5 mg 4-03 tablet by ity of tablet 00:00: mouth [place] 00 every Medical evening. Branch As needed ferrous 3-0 Yes [id number] 325mg Take 1 Un devi sulfate 4-03 tablet by ity of (IRON) 325 00:00: mouth in [place] mg (65 mg 00 the Medical iron) morning. Branch tablet levocetiriz 2023-0 Yes [id number] 5mg Take 1 [facility] ine 5 mg 4-03 tablet by ity of tablet 00:00: mouth [place] 00 every Medical evening. Branch As needed ferrous 3-0 Yes [id number] 325mg Take 1 Un devi sulfate 4-03 tablet by ity of (IRON) 325 00:00: mouth in [place] mg (65 mg 00 the Medical iron) morning. Branch tablet levocetiriz 3-0 Yes [id number] 5mg Take 1 [facility] ine 5 mg 4-03 tablet by ity of tablet 00:00: mouth [place] 00 every Medical evening. Branch As needed ferrous 2022-0 Yes [id number] 325mg Take 1 Un devi sulfate 4-03 tablet by ity of (IRON) 325 00:00: mouth in [place] mg (65 mg 00 the Medical iron) morning. Branch tablet levocetiriz 3-0 Yes [id number] 5mg Take 1 [facility] ine 5 mg 4-03 tablet by ity of tablet 00:00: mouth [place] 00 every Medical evening. Branch As needed ferrous 3-0 Yes [id number] 325mg Take 1 Un devi sulfate 4-03 tablet by ity of (IRON) 325 00:00: mouth in [place] mg (65 mg 00 the Medical iron) morning. Branch tablet levocetiriz 3-0 Yes [id number] 5mg Take 1 [facility] ine 5 mg 4-03 tablet by ity of tablet 00:00: mouth [place] 00 every Medical evening. Branch As needed ferrous 3-0 Yes [id number] 325mg Take 1 Un devi sulfate 4-03 tablet by ity of (IRON) 325 00:00: mouth in [place] mg (65 mg 00 the Medical iron) morning. Branch tablet levocetiriz 2023-0 Yes [id number] 5mg Take 1 [facility] ine 5 mg 4-03 tablet by ity of tablet 00:00: mouth [place] 00 every Medical evening. Branch As needed ferrous 2023-0 Yes [id number] 325mg Take 1 Un devi sulfate 4-03 tablet by ity of (IRON) 325 00:00: mouth in [place] mg (65 mg 00 the Medical iron) morning. Branch tablet levocetiriz 2023-0 Yes [id number] 5mg Take 1 [facility] ine 5 mg - tablet by ity of tablet 00:00: mouth [place] 00 every Medical evening. Branch As needed ferrous Yes [id number] 325mg Take 1 Un devi sulfate 4-03 tablet by ity of (IRON) 325 00:00: mouth in [place] mg (65 mg 00 the Medical iron) morning. Branch tablet traMADoL 50 2022- Yes [id number] 50mg Take 1 Uni vers mg tablet 09-21-11 tablet by ity of 00:00: 04:59 mouth [place] 00 :00 every 6 Medical (six) Branch hours as needed for Pain (scale 7-10) for up to 7 days. Indication s: chronic pain traMADoL 50 2022- Yes 2745 50mg Take 1 Uni vers mg tablet 09-21 tablet by ity of 00:00: 04:59 mouth [place] 00 :00 every 6 Medical (six) Branch hours as needed for Pain (scale 7-10) for up to 7 days. Indication s: chronic pain traMADoL 50 2022- Yes 2745 50mg Take 1 Uni vers mg tablet 09-21- tablet by ity of 00:00: 04:59 mouth [place] 00 :00 every 6 Medical (six) Branch hours as needed for Pain (scale 7-10) for up to 7 days. Indication s: chronic pain traMADoL 50 2022- Yes 2745 50mg Take 1 Uni vers mg tablet 09-21 tablet by ity of 00:00: 04:59 mouth [place] 00 :00 every 6 Medical (six) Branch hours as needed for Pain (scale 7-10) for up to 7 days. Indication s: chronic pain traMADoL 50 2022- Yes 2745 50mg Take 1 Uni vers mg tablet 09-21-11 tablet by ity of 00:00: 04:59 mouth [place] 00 :00 every 6 Medical (six) Branch hours as needed for Pain (scale 7-10) for up to 7 days. Indication s: chronic pain traMADoL 50 2022- Yes 2745 50mg Take 1 Uni vers mg tablet 09-21-11 tablet by ity of 00:00: 04:59 mouth [place] 00 :00 every 6 Medical (six) Branch hours as needed for Pain (scale 7-10) for up to 7 days. Indication s: chronic pain traMADoL 50 2022-0 2022- Yes 2745 50mg Take 1 Uni vers mg tablet 09-21-11 tablet by ity of 00:00: 04:59 mouth [place] 00 :00 every 6 Medical (six) Branch hours as needed for Pain (scale 7-10) for up to 7 days. Indication s: chronic pain traMADoL 50 2022-0 2022- Yes 2745 50mg Take 1 Uni vers mg tablet 09-21-11 tablet by ity of 00:00: 04:59 mouth [place] 00 :00 every 6 Medical (six) Branch hours as needed for Pain (scale 7-10) for up to 7 days. Indication s: chronic pain traMADoL 50 2022-2022- Yes 2745 50mg Take 1 Uni vers mg tablet 09-21-11 tablet by ity of 00:00: 04:59 mouth [place] 00 :00 every 6 Medical (six) Branch hours as needed for Pain (scale 7-10) for up to 7 days. Indication s: chronic pain traMADoL 50 2022-2022- Yes 2745 50mg Take 1 [facility] vers mg tablet 09-21-11 tablet by ity of 00:00: 04:59 mouth [place] 00 :00 every 6 Medical (six) Branch hours as needed for Pain (scale 7-10) for up to 7 days. Indication s: chronic pain traMADoL 50 2022-2022- Yes 2745 50mg Take 1 Uni vers mg tablet 09-2111 tablet by ity of 00:00: 04:59 mouth [place] 00 :00 every 6 Medical (six) Branch hours as needed for Pain (scale 7-10) for up to 7 days. Indication s: chronic pain traMADoL 50 2022-0 2022- Yes 2745 50mg Take 1 [facility] vers mg tablet 09-21-11 tablet by ity of 00:00: 04:59 mouth [place] 00 :00 every 6 Medical (six) Branch hours as needed for Pain (scale 7-10) for up to 7 days. Indication s: chronic pain traMADoL 50 2022-0 2022- Yes 2745 50mg Take 1 [facility] vers mg tablet 09-21-11 tablet by ity of 00:00: 04:59 mouth [place] 00 :00 every 6 Medical (six) Branch hours as needed for Pain (scale 7-10) for up to 7 days. Indication s: chronic pain traMADoL 50 2022-0 2022- Yes 2745 50mg Take 1 [facility] vers mg tablet 09-21 tablet by ity of 00:00: 04:59 mouth [place] 00 :00 every 6 Medical (six) Branch hours as needed for Pain (scale 7-10) for up to 7 days. Indication s: chronic pain traMADoL 50 2022-2022- Yes 2745 50mg Take 1 [facility] vers mg tablet 09-21 tablet by ity of 00:00: 04:59 mouth [place] 00 :00 every 6 Medical (six) Branch hours as needed for Pain (scale 7-10) for up to 7 days. Indication s: chronic pain traMADoL 50 2022- Yes 2745 50mg Take 1 [facility] vers mg tablet 09-21 tablet by ity of 00:00: 04:59 mouth [place] 00 :00 every 6 Medical (six) Branch hours as needed for Pain (scale 7-10) for up to 7 days. Indication s: chronic pain traMADoL 50 2022-2022- Yes 2745 50mg Take 1 [facility] vers mg tablet 09-21 tablet by ity of 00:00: 04:59 mouth [place] 00 :00 every 6 Medical (six) Branch hours as needed for Pain (scale 7-10) for up to 7 days. Indication s: chronic pain traMADoL 50 2022-2022- No 2745 50mg Take 1 [facility] vers mg tablet 09-21 tablet by ity of 00:00: 04:59 mouth [place] 00 :00 every 6 Medical (six) Branch hours as needed for Pain (scale 7-10) for up to 7 days. Indication s: chronic pain mirtazapine 2022-2022- No [id number] 7.5mg Take 0.5 [facility] 15 mg 09-21 tablets by ity of tablet 00:00: 00:00 mouth at [place] 00 :00 bedtime. Medical Branch traMADoL 50 2022-2022- No 2745 50mg Take 1 [facility] vers mg tablet 09-21 tablet by ity of 00:00: 04:59 mouth [place] 00 :00 every 6 Medical (six) Branch hours as needed for Pain (scale 7-10) for up to 7 days. Indication s: chronic pain mirtazapine 2022-0 2022- No [id number] 7.5mg Take 0.5 [facility] 15 mg -08 22-11 tablets by ity of tablet 00:00: 00:00 mouth at [place] 00 :00 bedtime. Medical Branch mirtazapine 2022-0 3- No [id number] 7.5mg Take 0.5 [facility] 15 mg -08 22-11 tablets by ity of tablet 00:00: 00:00 mouth at [place] 00 :00 bedtime. Medical Branch traMADoL 50 2022-0 2022- No 2745 50mg Take 1 [facility] vers mg tablet 09-21 tablet by ity of 00:00: 04:59 mouth [place] 00 :00 every 6 Medical (six) Branch hours as needed for Pain (scale 7-10) for up to 7 days. Indication s: chronic pain mirtazapine 2022-0 2022- No [id number] 7.5mg Take 0.5 [facility] 15 mg -08 22-11 tablets by ity of tablet 00:00: 00:00 mouth at [place] 00 :00 bedtime. Medical Branch cefdinir 2023-0 Yes 300mg Take 1 Univer s 300 mg 3-29 capsule by ity of capsule 00:00: mouth in [place] 00 the Medical morning. Branch cefdinir 2023-0 2023- No 300mg Take 1 Unive rs 300 mg 3-29 04-03 capsule by ity of capsule 00:00: 00:00 mouth in [place] 00 :00 the Medical morning. Branch cefdinir 2023-0 2023- No 300mg Take 1 Unive rs 300 mg 3-29 04-03 capsule by ity of capsule 00:00: 00:00 mouth in [place] 00 :00 the Medical morning. Branch cefdinir 2023-0 2023- No 300mg Take 1 Unive rs 300 mg 3-29 04-03 capsule by ity of capsule 00:00: 00:00 mouth in [place] 00 :00 the Medical morning. Branch cefdinir 2023-0 2023- No 300mg Take 1 Unive rs 300 mg 3-29 04-03 capsule by ity of capsule 00:00: 00:00 mouth in [place] 00 :00 the Medical morning. Branch cefdinir 2022-0 2022- No 300mg Take 1 Unive rs 300 mg 09-16 capsule by ity of capsule 00:00: 00:00 mouth in [place] 00 :00 the Medical morning. Branch cefdinir 2022-0 2022- No 300mg Take 1 Unive rs 300 mg 09-16 capsule by ity of capsule 00:00: 00:00 mouth in [place] 00 :00 the Medical morning. Branch darbepoetin 2022-0 2022- No [id number] 300ug [facility] lashay 09-08 9101 ity of (ARANESP) 22:30: 21:45 [place] injection 00 :00 Medical 300 mcg Branch darbepoetin 2022-0 2022- No [id number] 300ug 300 mcg, [facility] lashay 09-08 9101 Subcutaneo ity of (ARANESP) 22:30: 21:45 [place], ONCE, [place] injection 00 :00 1 dose, On Medi juan 300 mcg Tue Branch 09/08/22 at 1730, Routine darbepoetin 2022-0 2022- No [id number] 200ug [facility] lash[place] in 08-12 9101 ity of polysorbat 00:00: 23:09 [place] (ARANESP) 00 :00 Medical injection Branch 200 mcg darbepoetin 2022-0 2022- No [id number] 200ug 200 mcg, Univers lashay in 08-12 9101 Subcutaneo ity o f polysorbat 00:00: 23:09 [place], ONCE, [place] (ARANESP) 00 :00 1 dose, On Medi juan injection Tue Branch 200 mcg 08/11/22 at 1800, Routine apixaban Yes 1358 Take every Uni vers (ELIQUIS) 2-13 12 hours. ity o f 2.5 mg 00:00: Indication [place] tablet 00 s: atrial Medical fibrillati Branch on digoxin 125 Yes [id number] 125ug Take 1 [facility] mcg (0.125 2-13 tablet by ity of mg) tablet 00:00: mouth [place] 00 every Medical other day. Branch apixaban 0 Yes 1358 Take every Uni vers (ELIQUIS) 2-13 12 hours. ity o f 2.5 mg 00:00: Indication [place] tablet 00 s: atrial Medical fibrillati Branch on digoxin 125 0 Yes [id number] 125ug Take 1 [facility] mcg (0.125 2-13 tablet by ity of mg) tablet 00:00: mouth [place] 00 every Medical other day. Branch apixaban 0 Yes 1358 Take every Uni vers (ELIQUIS) 2-13 12 hours. ity o f 2.5 mg 00:00: Indication [place] tablet 00 s: atrial Medical fibrillati Branch on digoxin 125 0 Yes [id number] 125ug Take 1 [facility] mcg (0.125 2-13 tablet by ity of mg) tablet 00:00: mouth [place] 00 every Medical other day. Branch apixaban 0 Yes 1358 Take every Uni vers (ELIQUIS) 2-13 12 hours. ity o f 2.5 mg 00:00: Indication [place] tablet 00 s: atrial Medical fibrillati Branch on digoxin 125 0 Yes [id number] 125ug Take 1 [facility] mcg (0.125 2-13 tablet by ity of mg) tablet 00:00: mouth [place] 00 every Medical other day. Branch apixaban 2022-0 Yes 1358 Take every Uni vers (ELIQUIS) 2-13 12 hours. ity o f 2.5 mg 00:00: Indication [place] tablet 00 s: atrial Medical fibrillati Branch on digoxin 125 2022-0 Yes [id number] 125ug Take 1 Univers mcg (0.125 2-13 tablet by ity of mg) tablet 00:00: mouth [place] 00 every Medical other day. Branch apixaban 2022-0 Yes 1358 Take every Uni vers (ELIQUIS) 2-13 12 hours. ity o f 2.5 mg 00:00: Indication [place] tablet 00 s: atrial Medical fibrillati Branch on digoxin 125 2022-0 Yes [id number] 125ug Take 1 [facility] mcg (0.125 2-13 tablet by ity of mg) tablet 00:00: mouth [place] 00 every Medical other day. Branch apixaban 2022-0 Yes 1358 Take every Uni vers (ELIQUIS) 2-13 12 hours. ity o f 2.5 mg 00:00: Indication [place] tablet 00 s: atrial Medical fibrillati Branch on digoxin 125 0 Yes [id number] 125ug Take 1 [facility] mcg (0.125 2-13 tablet by ity of mg) tablet 00:00: mouth [place] 00 every Medical other day. Branch apixaban 0 Yes 1358 Take every Uni vers (ELIQUIS) 2-13 12 hours. ity o f 2.5 mg 00:00: Indication [place] tablet 00 s: atrial Medical fibrillati Branch on digoxin 125 0 Yes [id number] 125ug Take 1 [facility] mcg (0.125 2-13 tablet by ity of mg) tablet 00:00: mouth [place] 00 every Medical other day. Branch apixaban Yes 1358 Take every Uni vers (ELIQUIS) 2-13 12 hours. ity o f 2.5 mg 00:00: Indication [place] tablet 00 s: atrial Medical fibrillati Branch on digoxin 125 0 Yes [id number] 125ug Take 1 [facility] mcg (0.125 2-13 tablet by ity of mg) tablet 00:00: mouth [place] 00 every Medical other day. Branch apixaban Yes 1358 Take every Uni vers (ELIQUIS) 2-13 12 hours. ity o f 2.5 mg 00:00: Indication [place] tablet 00 s: atrial Medical fibrillati Branch on digoxin 125 0 Yes [id number] 125ug Take 1 [facility] mcg (0.125 2-13 tablet by ity of mg) tablet 00:00: mouth [place] 00 every Medical other day. Branch apixaban 0 Yes 1358 Take every Uni vers (ELIQUIS) 2-13 12 hours. ity o f 2.5 mg 00:00: Indication [place] tablet 00 s: atrial Medical fibrillati Branch on digoxin 125 0 Yes [id number] 125ug Take 1 [facility] mcg (0.125 2-13 tablet by ity of mg) tablet 00:00: mouth [place] 00 every Medical other day. Branch apixaban 0 Yes 1358 Take every Uni vers (ELIQUIS) 2-13 12 hours. ity o f 2.5 mg 00:00: Indication [place] tablet 00 s: atrial Medical fibrillati Branch on digoxin 125 0 Yes [id number] 125ug Take 1 [facility] mcg (0.125 2-13 tablet by [facility]y of mg) tablet 00:00: mouth [place] 00 every Medical other day. Branch apixaban 2022-0 Yes 1358 Take every [facility] vers (ELIQUIS) 2-13 12 hours. ity o f 2.5 mg 00:00: Indication [place] tablet 00 s: atrial Medical fibrillati Branch on digoxin 125 0 Yes [id number] 125ug Take 1 [facility] mcg (0.125 2-13 tablet by [facility] of mg) tablet 00:00: mouth [place] 00 every Medical other day. Branch apixaban 0 Yes 1358 Take every [facility] vers (ELIQUIS) 2-13 12 hours. ity o f 2.5 mg 00:00: Indication [place] tablet 00 s: atrial Medical fibrillati Branch on digoxin 125 Yes [id number] 125ug Take 1 [facility] mcg (0.125 2-13 tablet by [facility]y of mg) tablet 00:00: mouth [place] 00 every Medical other day. Branch digoxin 125 0 Yes [id number] 125ug Take 1 [facility] mcg (0.125 2-13 tablet by [facility]y of mg) tablet 00:00: mouth [place] 00 every Medical other day. Branch digoxin 125 0 Yes [id number] 125ug Take 1 [facility] mcg (0.125 2-13 tablet by [facility]y of mg) tablet 00:00: mouth [place] 00 every Medical other day. Branch digoxin 125 0 Yes [id number] 125ug Take 1 [facility] mcg (0.125 2-13 tablet by [facility]y of mg) tablet 00:00: mouth [place] 00 every Medical other day. Branch digoxin 125 0 Yes [id number] 125ug Take 1 [facility] mcg (0.125 2-13 tablet by [facility]y of mg) tablet 00:00: mouth [place] 00 every Medical other day. Branch digoxin 125 0 Yes [id number] 125ug Take 1 [facility] mcg (0.125 2-13 tablet by [facility] of mg) tablet 00:00: mouth [place] 00 every Medical other day. Branch digoxin 125 2022-0 Yes [id number] 125ug Take 1 [facility] mcg (0.125 2-13 tablet by [facility] of mg) tablet 00:00: mouth [place] 00 every Medical other day. Branch digoxin 125 0 Yes [id number] 125ug Take 1 [facility] mcg (0.125 2-13 tablet by [facility] of mg) tablet 00:00: mouth [place] 00 every Medical other day. Branch digoxin 125 2022-0 Yes [id number] 125ug Take 1 [facility] mcg (0.125 2-13 tablet by [facility] of mg) tablet 00:00: mouth [place] 00 every Medical other day. Branch digoxin 125 2022-0 Yes [id number] 125ug Take 1 [facility] mcg (0.125 2-13 tablet by [facility] of mg) tablet 00:00: mouth [place] 00 every Medical other day. Branch digoxin 125 2022-0 Yes [id number] 125ug Take 1 [facility] mcg (0.125 2-13 tablet by [facility] of mg) tablet 00:00: mouth [place] 00 every Medical other day. Branch digoxin 125 2022-0 Yes [id number] 125ug Take 1 [facility] mcg (0.125 2-13 tablet by [facility] of mg) tablet 00:00: mouth [place] 00 every Medical other day. Branch digoxin 125 2022-0 Yes [id number] 125ug Take 1 [facility] mcg (0.125 2-13 tablet by [facility] of mg) tablet 00:00: mouth [place] 00 every Medical other day. Branch digoxin 125 2022-0 Yes [id number] 125ug Take 1 [facility] mcg (0.125 2-13 tablet by [facility] of mg) tablet 00:00: mouth [place] 00 every Medical other day. Branch digoxin 125 2022-0 Yes [id number] 125ug Take 1 [facility] mcg (0.125 2-13 tablet by [facility] of mg) tablet 00:00: mouth [place] 00 every Medical other day. Branch digoxin 125 2022-0 Yes [id number] 125ug Take 1 [facility] mcg (0.125 2-13 tablet by [facility] of mg) tablet 00:00: mouth [place] 00 every Medical other day. Branch digoxin 125 2022-0 Yes [id number] 125ug Take 1 [facility] mcg (0.125 2-13 tablet by [facility]y of mg) tablet 00:00: mouth [place] 00 every Medical other day. Branch digoxin 125 2022-0 Yes [id number] 125ug Take 1 [facility] mcg (0.125 2-13 tablet by [facility] of mg) tablet 00:00: mouth [place] 00 every Medical other day. Branch digoxin 125 2022-0 Yes [id number] 125ug Take 1 [facility] mcg (0.125 2-13 tablet by [facility]y of mg) tablet 00:00: mouth [place] 00 every Medical other day. Branch digoxin 125 0 Yes [id number] 125ug Take 1 [facility] mcg (0.125 2-13 tablet by [facility]y of mg) tablet 00:00: mouth [place] 00 every Medical other day. Branch digoxin 125 0 Yes [id number] 125ug Take 1 [facility] mcg (0.125 2-13 tablet by [facility] of mg) tablet 00:00: mouth [place] 00 every Medical other day. Branch digoxin 125 0 Yes [id number] 125ug Take 1 [facility] mcg (0.125 2-13 tablet by [facility] of mg) tablet 00:00: mouth [place] 00 every Medical other day. Branch digoxin 125 0 Yes [id number] 125ug Take 1 [facility] mcg (0.125 2-13 tablet by [facility]y of mg) tablet 00:00: mouth [place] 00 every Medical other day. Branch digoxin 125 0 Yes [id number] 125ug Take 1 [facility] mcg (0.125 2-13 tablet by [facility]y of mg) tablet 00:00: mouth [place] 00 every Medical other day. Branch digoxin 125 0 Yes [id number] 125ug Take 1 [facility] mcg (0.125 2-13 tablet by [facility] of mg) tablet 00:00: mouth [place] 00 every Medical other day. Branch digoxin 125 0 Yes [id number] 125ug Take 1 [facility] mcg (0.125 2-13 tablet by [facility]y of mg) tablet 00:00: mouth [place] 00 every Medical other day. Branch digoxin 125 0 Yes [id number] 125ug Take 1 [facility] mcg (0.125 2-13 tablet by [facility] of mg) tablet 00:00: mouth [place] 00 every Medical other day. Branch digoxin 125 0 Yes [id number] 125ug Take 1 [facility] mcg (0.125 2-13 tablet by [facility] of mg) tablet 00:00: mouth [place] 00 every Medical other day. Branch apixaban 2022- No 1358 Take every [facility] dev[facility] (ELIQUIS) 2-13 04-03 12 hours. [facility] 2.5 mg 00:00: 00:00 Ind[place] 00 :00 s: atrial [facility] fibrillati Branch on apixaban 2022- No 1358 Take every [facility] devi (ELIQUIS) 08-03 12 hours. [facility] 2.5 mg 00:00: 00:00 Indication [place] 00 :00 s: atrial Medical fibrillati Branch on apixaban 2022- No 1358 Take every [facility] devi (ELIQUIS) 08-03 12 hours. [facility] 2.5 mg 00:00: 00:00 Indication [place] 00 :00 s: atrial Medical fibrillati Branch on apixaban 2022- No 1358 Take every [facility] dev[facility] (ELIQUIS) 08-03 12 hours. [facility] 2.5 mg 00:00: 00:00 Indication [place] 00 :00 s: atrial Medical fibrillati Branch on apixaban 2022- No 1358 Take every [facility] (ELIQUIS) 08-03 12 hours. [facility] of 2.5 mg 00:00: 00:00 Indication [place] 00 :00 s: atrial Medical fibrillati Branch on apixaban 2022- No 1358 Take every [facility] dev[facility] (ELIQUIS) 08-03 12 hours. [facility] of 2.5 mg 00:00: 00:00 Indication [place] 00 :00 s: atrial Medical fibrillati Branch on bumetanide Yes [id number] Take 1 [facility] n[facility] 2 mg tablet 2-09 tablet by ity of 00:00: mouth [place] 00 every Medical morning Branch AND 0.5 tablets every evening. bumetanide Yes [id number] Take 1 [facility] nivers 2 mg tablet 2-09 tablet by ity of 00:00: mouth [place] 00 every Medical morning Branch AND 0.5 tablets every evening. bumetanide Yes [id number] Take 1 [facility] nivers 2 mg tablet 2-09 tablet by ity of 00:00: mouth [place] 00 every Medical morning Branch AND 0.5 tablets every evening. bumetanide Yes [id number] Take 1 [facility] nivers 2 mg tablet 2-09 tablet by ity of 00:00: mouth [place] 00 every Medical morning Branch AND 0.5 tablets every evening. bumetanide 2023-0 Yes [id number] Take 1 [facility] nivers 2 mg tablet 2-09 tablet by ity of 00:00: mouth [place] 00 every Medical morning Branch AND 0.5 tablets every evening. bumetanide 2022-0 Yes [id number] Take 1 [facility] nivers 2 mg tablet 2-09 tablet by ity of 00:00: mouth [place] 00 every Medical morning Branch AND 0.5 tablets every evening. bumetanide 2022-0 Yes [id number] Take 1 [facility] nivers 2 mg tablet 2-09 tablet by ity of 00:00: mouth [place] 00 every Medical morning Branch AND 0.5 tablets every evening. bumetanide 2022-0 Yes [id number] Take 1 [facility] nivers 2 mg tablet 2-09 tablet by ity of 00:00: mouth [place] 00 every Medical morning Branch AND 0.5 tablets every evening. bumetanide 2022-0 Yes [id number] Take 1 [facility] nivers 2 mg tablet 2-09 tablet by ity of 00:00: mouth [place] 00 every Medical morning Branch AND 0.5 tablets every evening. bumetanide 0 Yes [id number] Take 1 [facility] n[facility] 2 mg tablet 2-09 tablet by ity of 00:00: mouth [place] 00 every Medical morning Branch AND 0.5 tablets every evening. bumetanide 2022-0 Yes [id number] Take 1 [facility] n[facility] 2 mg tablet 2-09 tablet by ity of 00:00: mouth [place] 00 every Medical morning Branch AND 0.5 tablets every evening. bumetanide 2022-0 Yes [id number] Take 1 [facility] nivers 2 mg tablet 2-09 tablet by ity of 00:00: mouth [place] 00 every Medical morning Branch AND 0.5 tablets every evening. bumetanide 0 Yes [id number] Take 1 [facility] nivers 2 mg tablet 2-09 tablet by ity of 00:00: mouth [place] 00 every Medical morning Branch AND 0.5 tablets every evening. bumetanide 2022-0 Yes [id number] Take 1 [facility] n[facility] 2 mg tablet 2-09 tablet by ity of 00:00: mouth [place] 00 every Medical morning Branch AND 0.5 tablets every evening. bumetanide 2022-0 Yes [id number] Take 1 [facility] n[facility] 2 mg tablet 2-09 tablet by ity of 00:00: mouth [place] 00 every Medical morning Branch AND 0.5 tablets every evening. bumetanide 2022-0 Yes [id number] Take 1 [facility] nivers 2 mg tablet 2-09 tablet by ity of 00:00: mouth [place] 00 every Medical morning Branch AND 0.5 tablets every evening. bumetanide 2022-0 Yes [id number] Take 1 [facility] n[facility] 2 mg tablet 2-09 tablet by ity of 00:00: mouth [place] 00 every Medical morning Branch AND 0.5 tablets every evening. bumetanide 2022-0 Yes [id number] Take 1 [facility] n[facility] 2 mg tablet 2-09 tablet by ity of 00:00: mouth [place] 00 every Medical morning Branch AND 0.5 tablets every evening. bumetanide 2022-0 Yes [id number] Take 1 [facility] n[facility] 2 mg tablet 2-09 tablet by ity of 00:00: mouth [place] 00 every Medical morning Branch AND 0.5 tablets every evening. bumetanide 2022-0 Yes [id number] Take 1 [facility] n[facility] 2 mg tablet 2-09 tablet by ity of 00:00: mouth [place] 00 every Medical morning Branch AND 0.5 tablets every evening. bumetanide 2022-0 Yes [id number] Take 1 [facility] n[facility] 2 mg tablet 2-09 tablet by ity of 00:00: mouth [place] 00 every Medical morning Branch AND 0.5 tablets every evening. bumetanide 2022-0 Yes [id number] Take 1 [facility] n[facility] 2 mg tablet 2-09 tablet by ity of 00:00: mouth [place] 00 every Medical morning Branch AND 0.5 tablets every evening. bumetanide 2022-0 Yes [id number] Take 1 [facility] n[facility] 2 mg tablet 2-09 tablet by ity of 00:00: mouth [place] 00 every Medical morning Branch AND 0.5 tablets every evening. bumetanide 2022-0 Yes [id number] Take 1 [facility] n[facility] 2 mg tablet 2-09 tablet by ity of 00:00: mouth [place] 00 every Medical morning Branch AND 0.5 tablets every evening. bumetanide 2022-0 Yes [id number] Take 1 [facility] 2 mg tablet 2-09 tablet by ity of 00:00: mouth [place] 00 every Medical morning Branch AND 0.5 tablets every evening. bumetanide 2022-0 Yes [id number] Take 1 [facility] n[facility] 2 mg tablet 2-09 tablet by ity of 00:00: mouth [place] 00 every Medical morning Branch AND 0.5 tablets every evening. bumetanide 2022-0 Yes [id number] Take 1 [facility] n[facility] 2 mg tablet 2-09 tablet by ity of 00:00: mouth [place] 00 every Medical morning Branch AND 0.5 tablets every evening. bumetanide 2022-0 Yes [id number] Take 1 [facility] n[facility] 2 mg tablet 2-09 tablet by ity of 00:00: mouth [place] 00 every Medical morning Branch AND 0.5 tablets every evening. bumetanide 2022-0 Yes [id number] Take 1 [facility] n[facility] 2 mg tablet 2-09 tablet by ity of 00:00: mouth [place] 00 every Medical morning Branch AND 0.5 tablets every evening. bumetanide 2022-0 Yes [id number] Take 1 [facility] n[facility] 2 mg tablet 2-09 tablet by ity of 00:00: mouth [place] 00 every Medical morning Branch AND 0.5 tablets every evening. bumetanide 2022-0 Yes [id number] Take 1 [facility] n[facility] 2 mg tablet 2-09 tablet by ity of 00:00: mouth [place] 00 every Medical morning Branch AND 0.5 tablets every evening. bumetanide 2022-0 Yes [id number] Take 1 [facility] n[facility] 2 mg tablet 2-09 tablet by ity of 00:00: mouth [place] 00 every Medical morning Branch AND 0.5 tablets every evening. bumetanide 2022-0 Yes [id number] Take 1 [facility] n[facility] 2 mg tablet 2-09 tablet by ity of 00:00: mouth [place] 00 every Medical morning Branch AND 0.5 tablets every evening. bumetanide 2022-0 Yes [id number] Take 1 [facility] n[facility] 2 mg tablet 2-09 tablet by ity of 00:00: mouth [place] 00 every Medical morning Branch AND 0.5 tablets every evening. bumetanide 2022-0 Yes [id number] Take 1 [facility] n[facility] 2 mg tablet 2-09 tablet by ity of 00:00: mouth [place] 00 every Medical morning Branch AND 0.5 tablets every evening. bumetanide 2022-0 Yes [id number] Take 1 [facility] 2 mg tablet 2-09 tablet by ity of 00:00: mouth [place] 00 every Medical morning Branch AND 0.5 tablets every evening. bumetanide 2022-0 Yes [id number] Take 1 [facility] 2 mg tablet 2-09 tablet by ity of 00:00: mouth [place] 00 every Medical morning Branch AND 0.5 tablets every evening. bumetanide 2022-0 Yes [id number] Take 1 [facility] n[facility] 2 mg tablet 2-09 tablet by ity of 00:00: mouth [place] 00 every Medical morning Branch AND 0.5 tablets every evening. bumetanide 2022-0 Yes [id number] Take 1 [facility] n[facility] 2 mg tablet 2-09 tablet by ity of 00:00: mouth [place] 00 every Medical morning Branch AND 0.5 tablets every evening. bumetanide 2022-0 Yes [id number] Take 1 [facility] n[facility] 2 mg tablet 2-09 tablet by ity of 00:00: mouth [place] 00 every Medical morning Branch AND 0.5 tablets every evening. bumetanide 2022-0 Yes [id number] Take 1 [facility] 2 mg tablet 2-09 tablet by ity of 00:00: mouth [place] 00 every Medical morning Branch AND 0.5 tablets every evening. bumetanide 2022-0 Yes [id number] Take 1 [facility] n[facility] 2 mg tablet 2-09 tablet by ity of 00:00: mouth [place] 00 every Medical morning Branch AND 0.5 tablets every evening. bumetanide 2022-0 Yes [id number] Take 1 [facility] n[facility] 2 mg tablet 2-09 tablet by ity of 00:00: mouth [place] 00 every Medical morning Branch AND 0.5 tablets every evening. bumetanide 2022-0 Yes [id number] Take 1 [facility] nivers 2 mg tablet 2-09 tablet by ity of 00:00: mouth [place] 00 every Medical morning Branch AND 0.5 tablets every evening. darbepoetin 2022- No [id number] 300ug [facility] lashay 07-28 ity of (HANNAH) 22:15: 21:21 [place] injection 00 :00 Medical 300 mcg Branch darbepoetin 2022- No [id number] 300ug 300 mcg, [facility] lashay 07-28 Subcutaneo ity of (ARANESP) 22:15: 21:21 [place], [place] 00 :00 1 dose, On Medi juan 300 mcg 07/28/22 Branch at 1615, Routine traMADoL 50 2022-0 Yes 2745 TAKE 1 [facility] ers mg tablet 1-25 TABLET BY ity o f 00:00: MOUTH [place] 00 EVERY 8 Medical HOURS Branch NEEDED FOR PAIN INDICATION FOR CHRONIC PAIN. Indication s: chronic pain traMADoL 50 2022-0 Yes 2745 TAKE 1 [facility] ers mg tablet 1-25 TABLET BY ity o f 00:00: MOUTH [place] 00 EVERY 8 Medical HOURS Branch NEEDED FOR PAIN INDICATION FOR CHRONIC PAIN. Indication s: chronic pain traMADoL 50 2022-0 Yes 2745 TAKE 1 [facility] ers mg tablet 1-25 TABLET BY ity o f 00:00: MOUTH [place] 00 EVERY 8 Medical HOURS Branch NEEDED FOR PAIN INDICATION FOR CHRONIC PAIN. Indication s: chronic pain traMADoL 50 2022-0 Yes 2745 TAKE 1 [facility] ers mg tablet 1-25 TABLET BY ity o f 00:00: MOUTH [place] 00 EVERY 8 Medical HOURS Branch NEEDED FOR PAIN INDICATION FOR CHRONIC PAIN. Indication s: chronic pain traMADoL 50 2022-0 Yes 2745 TAKE 1 [facility] ers mg tablet 1-25 TABLET BY ity o f 00:00: MOUTH [place] 00 EVERY 8 Medical HOURS Branch NEEDED FOR PAIN INDICATION FOR CHRONIC PAIN. Indication s: chronic pain traMADoL 50 2022-0 Yes 2745 TAKE 1 [facility] ers mg tablet 1-25 TABLET BY ity o f 00:00: MOUTH [place] 00 EVERY 8 Medical HOURS Branch NEEDED FOR PAIN INDICATION FOR CHRONIC PAIN. Indication s: chronic pain traMADoL 50 2022-0 Yes 2745 TAKE 1 [facility] ers mg tablet 1-25 TABLET BY ity o f 00:00: MOUTH [place] 00 EVERY 8 Medical HOURS Branch NEEDED FOR PAIN INDICATION FOR CHRONIC PAIN. Indication s: chronic pain traMADoL 50 2022-0 Yes 2745 TAKE 1 [facility] ers mg tablet 1-25 TABLET BY ity o f 00:00: MOUTH [place] 00 EVERY 8 Medical HOURS Branch NEEDED FOR PAIN INDICATION FOR CHRONIC PAIN. Indication s: chronic pain traMADoL 50 2022-0 Yes 2745 TAKE 1 [facility] ers mg tablet 1-25 TABLET BY ity o f 00:00: MOUTH [place] 00 EVERY 8 Medical HOURS Branch NEEDED FOR PAIN INDICATION FOR CHRONIC PAIN. Indication s: chronic pain traMADoL 50 2022-0 Yes 2745 TAKE 1 [facility] ers mg tablet 1-25 TABLET BY ity o f 00:00: MOUTH [place] 00 EVERY 8 Medical HOURS Branch NEEDED FOR PAIN INDICATION FOR CHRONIC PAIN. Indication s: chronic pain traMADoL 50 2022-0 Yes 2745 TAKE 1 [facility] ers mg tablet 1-25 TABLET BY ity o f 00:00: MOUTH [place] 00 EVERY 8 Medical HOURS Branch NEEDED FOR PAIN INDICATION FOR CHRONIC PAIN. Indication s: chronic pain traMADoL 50 2022-0 Yes 2745 TAKE 1 [facility] ers mg tablet 1-25 TABLET BY ity o f 00:00: MOUTH [place] 00 EVERY 8 Medical HOURS Branch NEEDED FOR PAIN INDICATION FOR CHRONIC PAIN. Indication s: chronic pain traMADoL 50 2022-0 Yes 2745 TAKE 1 [facility] ers mg tablet 1-25 TABLET BY ity o f 00:00: MOUTH [place] 00 EVERY 8 Medical HOURS Branch NEEDED FOR PAIN INDICATION FOR CHRONIC PAIN. Indication s: chronic pain traMADoL 50 2022-0 Yes 2745 TAKE 1 [facility] ers mg tablet 1-25 TABLET BY ity o f 00:00: MOUTH [place] 00 EVERY 8 Medical HOURS Branch NEEDED FOR PAIN INDICATION FOR CHRONIC PAIN. Indication s: chronic pain traMADoL 50 2022-0 Yes 2745 TAKE 1 [facility] ers mg tablet 1-25 TABLET BY ity o f 00:00: MOUTH [place] 00 EVERY 8 Medical HOURS Branch NEEDED FOR PAIN INDICATION FOR CHRONIC PAIN. Indication s: chronic pain traMADoL 50 2022-0 Yes 2745 TAKE 1 [facility] ers mg tablet 1-25 TABLET BY ity o f 00:00: MOUTH [place] 00 EVERY 8 Medical HOURS Branch NEEDED FOR PAIN INDICATION FOR CHRONIC PAIN. Indication s: chronic pain traMADoL 50 2022-0 Yes 2745 TAKE 1 [facility] ers mg tablet 1-25 TABLET BY ity o f 00:00: MOUTH [place] 00 EVERY 8 Medical HOURS Branch NEEDED FOR PAIN INDICATION FOR CHRONIC PAIN. Indication s: chronic pain traMADoL 50 2022-0 Yes 2745 TAKE 1 [facility] ers mg tablet 1-25 TABLET BY ity o f 00:00: MOUTH [place] 00 EVERY 8 Medical HOURS Branch NEEDED FOR PAIN INDICATION FOR CHRONIC PAIN. Indication s: chronic pain traMADoL 50 2022-0 Yes 2745 TAKE 1 [facility] ers mg tablet 1-25 TABLET BY ity o f 00:00: MOUTH [place] 00 EVERY 8 Medical HOURS Branch NEEDED FOR PAIN INDICATION FOR CHRONIC PAIN. Indication s: chronic pain traMADoL 50 2022-0 Yes 2745 TAKE 1 [facility] ers mg tablet 1-25 TABLET BY ity o f 00:00: MOUTH [place] 00 EVERY 8 Medical HOURS Branch NEEDED FOR PAIN INDICATION FOR CHRONIC PAIN. Indication s: chronic pain traMADoL 50 2022-0 Yes 2745 TAKE 1 [facility] ers mg tablet 1-25 TABLET BY ity o f 00:00: MOUTH [place] 00 EVERY 8 Medical HOURS Branch NEEDED FOR PAIN INDICATION FOR CHRONIC PAIN. Indication s: chronic pain traMADoL 50 2022-0 Yes 2745 TAKE 1 [facility] ers mg tablet 1-25 TABLET BY ity o f 00:00: MOUTH [place] 00 EVERY 8 Medical HOURS Branch NEEDED FOR PAIN INDICATION FOR CHRONIC PAIN. Indication s: chronic pain traMADoL 50 2022-0 Yes 2745 TAKE 1 [facility] ers mg tablet 1-25 TABLET BY ity o f 00:00: MOUTH [place] 00 EVERY 8 Medical HOURS Branch NEEDED FOR PAIN INDICATION FOR CHRONIC PAIN. Indication s: chronic pain traMADoL 50 2022-0 2022- No 2745 TAKE 1 [facility] vers mg tablet 1-25 04-03 TABLET BY ity of 00:00: 00:00 MOUTH [place] 00 :00 EVERY 8 Medical HOURS Branch NEEDED FOR PAIN INDICATION FOR CHRONIC PAIN. Indication s: chronic pain traMADoL 50 2022-0 2022- No 2745 TAKE 1 [facility] vers mg tablet 1-25 04-03 TABLET BY ity of 00:00: 00:00 MOUTH [place] 00 :00 EVERY 8 Medical HOURS Branch NEEDED FOR PAIN INDICATION FOR CHRONIC PAIN. Indication s: chronic pain traMADoL 50 2022-0 2022- No 2745 TAKE 1 [facility] vers mg tablet 1-25 04-03 TABLET BY ity of 00:00: 00:00 MOUTH [place] 00 :00 EVERY 8 Medical HOURS Branch NEEDED FOR PAIN INDICATION FOR CHRONIC PAIN. Indication s: chronic pain traMADoL 50 2022-0 2022- No 2745 TAKE 1 [facility] vers mg tablet 1-25 04-03 TABLET BY ity of 00:00: 00:00 MOUTH [place] 00 :00 EVERY 8 Medical HOURS Branch NEEDED FOR PAIN INDICATION FOR CHRONIC PAIN. Indication s: chronic pain traMADoL 50 2022-0 2022- No 2745 TAKE 1 [facility] mg tablet 1-25 04-03 TABLET BY ity of 00:00: 00:00 MOUTH [place] 00 :00 EVERY 8 Medical HOURS Branch NEEDED FOR PAIN INDICATION FOR CHRONIC PAIN. Indication s: chronic pain darbepoetin 2023-0 3- No [id number] 300ug [facility] lashay 07-14 ity of (ARANESP) 23:45: 22:51 [place] injection 00 :00 Medical 300 mcg Branch darbepoetin 2023-0 3- No [id number] 300ug 300 mcg, [facility] lashay 07-14 Subcutaneo ity of (ARANES) 23:45: 22:51 [place], [place]CE, [place] 00 :00 1 dose, On [facility]i [facility] 300 mcg Tue Branch 07/14/22 at 1745, Routine levoFLOXaci 2023-0 Yes 250mg Take 1 [facility] vers n 250 mg 1-12 tablet by ity of tablet 00:00: mouth [place] 00 every 24 Medical (twenty-fo Branch ur) hours. levoFLOXaci 2023-0 Yes 250mg Take 1 [facility] vers n 250 mg 1-12 tablet by ity of tablet 00:00: mouth [place] 00 every 24 Medical (twenty-fo Branch ur) hours. levoFLOXaci 2023-0 Yes 250mg Take 1 [facility] vers n 250 mg 1-12 tablet by ity of tablet 00:00: mouth [place] 00 every 24 Medical (twenty-fo Branch ur) hours. levoFLOXaci 2023-0 Yes 250mg Take 1 [facility] vers n 250 mg 1-12 tablet by ity of tablet 00:00: mouth [place] 00 every 24 Medical (twenty-fo Branch ur) hours. levoFLOXaci 2023-0 Yes 250mg Take 1 [facility] vers n 250 mg 1-12 tablet by ity of tablet 00:00: mouth [place] 00 every 24 Medical (twenty-fo Branch ur) hours. levoFLOXaci 2023-0 Yes 250mg Take 1 [facility] vers n 250 mg 1-12 tablet by ity of tablet 00:00: mouth [place] 00 every 24 Medical (twenty-fo Branch ur) hours. levoFLOXaci 2023-0 Yes 250mg Take 1 [facility] vers n 250 mg 1-12 tablet by ity of tablet 00:00: mouth [place] 00 every 24 Medical (twenty-fo Branch ur) hours. levoFLOXaci 2023-0 Yes 250mg Take 1 [facility] vers n 250 mg 1-12 tablet by ity of tablet 00:00: mouth [place] 00 every 24 Medical (twenty-fo Branch ur) hours. levoFLOXaci 2023-0 Yes 250mg Take 1 [facility] vers n 250 mg 1-12 tablet by ity of tablet 00:00: mouth [place] 00 every 24 Medical (twenty-fo Branch ur) hours. levoFLOXaci 2023-0 Yes 250mg Take 1 [facility] vers n 250 mg 1-12 tablet by ity of tablet 00:00: mouth [place] 00 every 24 Medical (twenty-fo Branch ur) hours. levoFLOXaci 2023-0 Yes 250mg Take 1 [facility] vers n 250 mg 1-12 tablet by ity of tablet 00:00: mouth [place] 00 every 24 Medical (twenty-fo Branch ur) hours. levoFLOXaci 2023-0 Yes 250mg Take 1 [facility] vers n 250 mg 1-12 tablet by ity of tablet 00:00: mouth [place] 00 every 24 Medical (twenty-fo Branch ur) hours. levoFLOXaci 2023-0 Yes 250mg Take 1 [facility] vers n 250 mg 1-12 tablet by ity of tablet 00:00: mouth [place] 00 every 24 Medical (twenty-fo Branch ur) hours. levoFLOXaci 2023-0 Yes 250mg Take 1 [facility] vers n 250 mg 1-12 tablet by ity of tablet 00:00: mouth [place] 00 every 24 Medical (twenty-fo Branch ur) hours. levoFLOXaci 2023-0 Yes 250mg Take 1 [facility] vers n 250 mg 1-12 tablet by ity of tablet 00:00: mouth [place] 00 every 24 Medical (twenty-fo Branch ur) hours. levoFLOXaci 2023-0 Yes 250mg Take 1 [facility] vers n 250 mg 1-12 tablet by ity of tablet 00:00: mouth [place] 00 every 24 Medical (twenty-fo Branch ur) hours. levoFLOXaci 2023-0 Yes 250mg Take 1 [facility] vers n 250 mg 1-12 tablet by ity of tablet 00:00: mouth [place] 00 every 24 Medical (twenty-fo Branch ur) hours. levoFLOXaci 2023-0 Yes 250mg Take 1 [facility] vers n 250 mg 1-12 tablet by ity of tablet 00:00: mouth [place] 00 every 24 Medical (twenty-fo Branch ur) hours. levoFLOXaci 2023-0 Yes 250mg Take 1 [facility] vers n 250 mg 1-12 tablet by ity of tablet 00:00: mouth [place] 00 every 24 Medical (twenty-fo Branch ur) hours. levoFLOXaci 2023-0 Yes 250mg Take 1 [facility] vers n 250 mg 1-12 tablet by ity of tablet 00:00: mouth [place] 00 every 24 Medical (twenty-fo Branch ur) hours. levoFLOXaci 2023-0 Yes 250mg Take 1 [facility] vers n 250 mg 1-12 tablet by ity of tablet 00:00: mouth [place] 00 every 24 Medical (twenty-fo Branch ur) hours. levoFLOXaci 2023-0 Yes 250mg Take 1 [facility] vers n 250 mg 1-12 tablet by ity of tablet 00:00: mouth [place] 00 every 24 Medical (twenty-fo Branch ur) hours. levoFLOXaci 2023-0 Yes 250mg Take 1 [facility] vers n 250 mg 1-12 tablet by ity of tablet 00:00: mouth [place] 00 every 24 Medical (twenty-fo Branch ur) hours. levoFLOXaci 2023-0 Yes 250mg Take 1 [facility] vers n 250 mg 1-12 tablet by ity of tablet 00:00: mouth [place] 00 every 24 Medical (twenty-fo Branch ur) hours. levoFLOXaci 2023-0 Yes 250mg Take 1 [facility] vers n 250 mg 1-12 tablet by ity of tablet 00:00: mouth [place] 00 every 24 Medical (twenty-fo Branch ur) hours. levoFLOXaci 2023-0 2023- No 250mg Take 1 [facility] devi n 250 mg 1-12 04-03 tablet by ity o f tablet 00:00: 00:00 mouth [place] 00 :00 every 24 Medical (twenty-fo Branch ur) hours. levoFLOXaci 2023-0 2023- No 250mg Take 1 [facility] devi n 250 mg 1-12 04-03 tablet by ity o f tablet 00:00: 00:00 mouth [place] 00 :00 every 24 Medical (twenty-fo Branch ur) hours. levoFLOXaci 2023-0 2023- No 250mg Take 1 [facility] devi n 250 mg 1-12 04-03 tablet by ity o f tablet 00:00: 00:00 mouth [place] 00 :00 every 24 Medical (twenty-fo Branch ur) hours. levoFLOXaci 2023-0 2023- No 250mg Take 1 [facility] devi n 250 mg 1-12 04-03 tablet by ity o f tablet 00:00: 00:00 mouth [place] 00 :00 every 24 Medical (twenty-fo Branch ur) hours. levoFLOXaci 2022-0 2023- No 250mg Take 1 [facility] devi n 250 mg 07-02 tablet by ity o f tablet 00:00: 00:00 mouth [place] 00 :00 every 24 Medical (twenty-[facility] Branch ur) hours. levoFLOXaci 3-0 2023- No 250mg Take 1 Un devi n 250 mg 07-02- tablet by ity o f tablet 00:00: 00:00 mouth [place] 00 :00 every 24 Medical (twenty-[facility] Branch ur) hours. darbepoetin 2022-0 3- No [id number] 300ug [facility] lashay 06-30 9101 ity of (ARANESP) 23:45: 22:58 [place] injection 00 :00 Medical 300 mcg Branch darbepoetin 2022-0 3- No [id number] 300ug 300 mcg, [facility] lashay 06-30 9101 Subcutaneo ity of (ARANESP) 23:45: 22:58 [place], ONCE, [place] 00 :00 1 dose, On Medi juan 300 mcg e Branch 06/30/22 at 1745, Routine pravastatin 2022-0 Yes [id number] 40mg Take 1 [facility] 40 mg 1-05 tablet by ity of tablet 00:00: mouth at [place] [address] bedtime. Medical Branch pravastatin 2022-0 Yes [id number] 40mg Take 1 [facility] 40 mg 1-05 tablet by ity of tablet 00:00: mouth at [place] [address] bedtime. Medical Branch pravastatin 2022-0 Yes [id number] 40mg Take 1 [facility] 40 mg 1-05 tablet by ity of tablet 00:00: mouth at [place] [address] bedtime. Medical Branch pravastatin 2022-0 Yes [id number] 40mg Take 1 [facility] 40 mg 1-05 tablet by ity of tablet 00:00: mouth at [place] [address] bedtime. Medical Branch pravastatin 2022-0 Yes [id number] 40mg Take 1 [facility] 40 mg 1-05 tablet by ity of tablet 00:00: mouth at [place] [address] bedtime. Medical Branch pravastatin 2022-0 Yes [id number] 40mg Take 1 [facility] 40 mg 1-05 tablet by ity of tablet 00:00: mouth at [place] [address] bedtime. Medical Branch pravastatin 3-0 Yes [id number] 40mg Take 1 [facility] 40 mg 1-05 tablet by ity of tablet 00:00: mouth at [place] [address] bedtime. Medical Branch pravastatin 3-0 Yes [id number] 40mg Take 1 [facility] 40 mg 1-05 tablet by ity of tablet 00:00: mouth at [place] [address] bedtime. Medical Branch pravastatin 2022-0 Yes [id number] 40mg Take 1 [facility] 40 mg 1-05 tablet by ity of tablet 00:00: mouth at [place] [address] bedtime. Medical Branch pravastatin 2022-0 Yes [id number] 40mg Take 1 [facility] 40 mg 1-05 tablet by ity of tablet 00:00: mouth at [place] [address] bedtime. Medical Branch pravastatin 2022-0 Yes [id number] 40mg Take 1 [facility] 40 mg 1-05 tablet by ity of tablet 00:00: mouth at [place] [address] bedtime. Medical Branch pravastatin 2022-0 Yes [id number] 40mg Take 1 [facility] 40 mg 1-05 tablet by ity of tablet 00:00: mouth at [place] [address] bedtime. Medical Branch pravastatin 2022-0 Yes [id number] 40mg Take 1 [facility] 40 mg 1-05 tablet by ity of tablet 00:00: mouth at [place] [address] bedtime. Medical Branch pravastatin 2022-0 Yes [id number] 40mg Take 1 [facility] 40 mg 1-05 tablet by ity of tablet 00:00: mouth at [place] [address] bedtime. Medical Branch pravastatin 2022-0 Yes [id number] 40mg Take 1 [facility] 40 mg 1-05 tablet by ity of tablet 00:00: mouth at [place] [address] bedtime. Medical Branch pravastatin 3-0 Yes [id number] 40mg Take 1 [facility] 40 mg 1-05 tablet by ity of tablet 00:00: mouth at [place] [address] bedtime. Medical Branch pravastatin 3-0 Yes [id number] 40mg Take 1 [facility] 40 mg 1-05 tablet by ity of tablet 00:00: mouth at [place] [address] bedtime. Medical Branch pravastatin 3-0 Yes [id number] 40mg Take 1 [facility] 40 mg 1-05 tablet by ity of tablet 00:00: mouth at [place] [address] bedtime. Medical Branch pravastatin 3-0 Yes [id number] 40mg Take 1 [facility] 40 mg 1-05 tablet by ity of tablet 00:00: mouth at [place] [address] bedtime. Medical Branch pravastatin 2022-0 Yes [id number] 40mg Take 1 [facility] 40 mg 1-05 tablet by ity of tablet 00:00: mouth at [place] [address] bedtime. Medical Branch pravastatin 2022-0 Yes [id number] 40mg Take 1 [facility] 40 mg 1-05 tablet by ity of tablet 00:00: mouth at [place] [address] bedtime. Medical Branch pravastatin 2022-0 Yes [id number] 40mg Take 1 [facility] 40 mg 1-05 tablet by ity of tablet 00:00: mouth at [place] [address] bedtime. Medical Branch pravastatin 2022-0 Yes [id number] 40mg Take 1 [facility] 40 mg 1-05 tablet by ity of tablet 00:00: mouth at [place] [address] bedtime. Medical Branch pravastatin 2022-0 Yes [id number] 40mg Take 1 [facility] 40 mg 1-05 tablet by ity of tablet 00:00: mouth at [place] [address] bedtime. Medical Branch pravastatin 2022-0 Yes [id number] 40mg Take 1 [facility] 40 mg 1-05 tablet by ity of tablet 00:00: mouth at [place] [address] bedtime. Medical Branch pravastatin 2022-0 Yes [id number] 40mg Take 1 [facility] 40 mg 1-05 tablet by ity of tablet 00:00: mouth at [place] [address] bedtime. Medical Branch pravastatin 2022-0 Yes [id number] 40mg Take 1 [facility] 40 mg 1-05 tablet by ity of tablet 00:00: mouth at [place] [address] bedtime. Medical Branch pravastatin 2022-0 Yes [id number] 40mg Take 1 [facility] 40 mg 1-05 tablet by ity of tablet 00:00: mouth at [place] [address] bedtime. Medical Branch pravastatin 2022-0 Yes [id number] 40mg Take 1 [facility] 40 mg 1-05 tablet by ity of tablet 00:00: mouth at [place] [address] bedtime. Medical Branch pravastatin 2022-0 Yes [id number] 40mg Take 1 [facility] 40 mg 1-05 tablet by ity of tablet 00:00: mouth at [place] [address] bedtime. Medical Branch pravastatin 2022-0 Yes [id number] 40mg Take 1 [facility] 40 mg 1-05 tablet by ity of tablet 00:00: mouth at [place] [address] bedtime. Medical Branch pravastatin 3-0 Yes [id number] 40mg Take 1 [facility] 40 mg 1-05 tablet by ity of tablet 00:00: mouth at [place] [address] bedtime. Medical Branch pravastatin 3-0 Yes [id number] 40mg Take 1 [facility] 40 mg 1-05 tablet by ity of tablet 00:00: mouth at [place] [address] bedtime. Medical Branch pravastatin 2022-0 Yes [id number] 40mg Take 1 [facility] 40 mg 1-05 tablet by ity of tablet 00:00: mouth at [place] [address] bedtime. Medical Branch pravastatin 2022-0 Yes [id number] 40mg Take 1 [facility] 40 mg 1-05 tablet by ity of tablet 00:00: mouth at [place] [address] bedtime. Medical Branch pravastatin 2022-0 Yes [id number] 40mg Take 1 [facility] 40 mg 1-05 tablet by ity of tablet 00:00: mouth at [place] [address] bedtime. Medical Branch pravastatin 2022-0 Yes [id number] 40mg Take 1 [facility] 40 mg 1-05 tablet by ity of tablet 00:00: mouth at [place] [address] bedtime. Medical Branch pravastatin 2022-0 Yes [id number] 40mg Take 1 [facility] 40 mg 1-05 tablet by ity of tablet 00:00: mouth at [place] [address] bedtime. Medical Branch pravastatin 2022-0 Yes [id number] 40mg Take 1 [facility] 40 mg 1-05 tablet by ity of tablet 00:00: mouth at [place] [address] bedtime. Medical Branch pravastatin 2022-0 Yes [id number] 40mg Take 1 [facility] 40 mg 1-05 tablet by ity of tablet 00:00: mouth at [place] [address] bedtime. Medical Branch pravastatin 3-0 Yes [id number] 40mg Take 1 [facility] 40 mg 1-05 tablet by ity of tablet 00:00: mouth at [place] [address] bedtime. Medical Branch pravastatin 3-0 Yes [id number] 40mg Take 1 [facility] 40 mg 1-05 tablet by ity of tablet 00:00: mouth at [place] [address] bedtime. Medical Branch pravastatin 3-0 Yes [id number] 40mg Take 1 [facility] 40 mg 1-05 tablet by ity of tablet 00:00: mouth at [place] [address] bedtime. Medical Branch pravastatin 3-0 Yes [id number] 40mg Take 1 [facility] 40 mg 1-05 tablet by ity of tablet 00:00: mouth at [place] [address] bedtime. Medical Branch pravastatin 2022-0 Yes [id number] 40mg Take 1 [facility] 40 mg 1-05 tablet by ity of tablet 00:00: mouth at [place] [address] bedtime. Medical Branch pravastatin 2022-0 Yes [id number] 40mg Take 1 [facility] 40 mg 1-05 tablet by ity of tablet 00:00: mouth at [place] [address] bedtime. Medical Branch pravastatin 2022-0 Yes [id number] 40mg Take 1 [facility] 40 mg 1-05 tablet by ity of tablet 00:00: mouth at [place] [address] bedtime. Medical Branch pravastatin 2022-0 Yes [id number] 40mg Take 1 [facility] 40 mg 1-05 tablet by ity of tablet 00:00: mouth at [place] [address] bedtime. Medical Branch pravastatin 2022-0 Yes [id number] 40mg Take 1 [facility] 40 mg 1-05 tablet by ity of tablet 00:00: mouth at [place] [address] bedtime. Medical Branch pravastatin 2022-0 Yes [id number] 40mg Take 1 [facility] 40 mg 1-05 tablet by ity of tablet 00:00: mouth at [place] [address] bedtime. Medical Branch pravastatin 2022-0 Yes [id number] 40mg Take 1 [facility] 40 mg 1-05 tablet by ity of tablet 00:00: mouth at [place] [address] bedtime. Medical Branch pravastatin 2022-0 Yes [id number] 40mg Take 1 [facility] 40 mg 1-05 tablet by ity of tablet 00:00: mouth at [place] [address] bedtime. Medical Branch pravastatin 2022-0 Yes [id number] 40mg Take 1 [facility] 40 mg 1-05 tablet by ity of tablet 00:00: mouth at [place] [address] bedtime. Medical Branch pravastatin 2022-0 Yes [id number] 40mg Take 1 [facility] 40 mg 1-05 tablet by ity of tablet 00:00: mouth at [place] [address] bedtime. Medical Branch pravastatin 2022-0 Yes [id number] 40mg Take 1 [facility] 40 mg 1-05 tablet by ity of tablet 00:00: mouth at [place] [address] bedtime. Medical Branch pravastatin 2022-0 Yes [id number] 40mg Take 1 [facility] 40 mg 1-05 tablet by ity of tablet 00:00: mouth at [place] [address] bedtime. Medical Branch pravastatin 2022-0 Yes [id number] 40mg Take 1 [facility] 40 mg 1-05 tablet by ity of tablet 00:00: mouth at [place] [address] bedtime. Medical Branch pravastatin 2022-0 Yes [id number] 40mg Take 1 [facility] 40 mg 1-05 tablet by ity of tablet 00:00: mouth at [place] [address] bedtime. [facility] Branch PRAVASTATIN 2022-0 Yes [id number] TAKE 1 Univers 40 mg 1-04 TABLET BY ity of tablet 00:00: MOUTH [place] 00 EVERYDAY Medical AT BEDTIME Branch PRAVASTATIN 2022-0 2022- No [id number] TAKE 1 Univers 40 mg 1-04 01-05 TABLET BY ity of tablet 00:00: 00:00 MOUTH [place] 00 :00 EVERYDAY Medical AT [facility] Branch iohexol 2022- No [id number] 100mL 100 mL, U nivers (OMNIPAQUE 06-23 Injection, it y of 300-100 mL) 17:45: 17:45 ONCE, 1 [place] 00 :00 dose, On Medica l 100 mL [facility] 06/23/22 Branch at 1145, Routine iohexol 2022- No [id number] 100mL 100 mL, U nivers (OMNIPAQUE 06-23 Injection, it y of 300-100 mL) 17:45: 17:45 ONCE, 1 [place] 00 :[place] dose, On Medica l 100 mL [facility] 06/23/22 Branch at 1145, Routine midazolam 2022- No IV Push, Uni vers (VERSED) 06-23 PRN, ity of injection 17:03: 17:03 Starting [place] 10 :10 on [facility] 06/23/22 at Branch 110, Until Discontinu ed, Routine midazolam 2022- No IV Push, Uni vers (VERSED) 06-23 PRN, ity of injection 17:03: 17:03 Starting [place] 10 :10 on [facility] 06/23/22 at Branch 1103, Until Discontinu ed, Routine FENTanyl PF 2022- No Slow IV Un devi (SUBLIMAZE 06-23 Push, PRN, it y of (PF)) 17:02: 17:02 Starting [place] injection 48 :48 on [facility] Medical 06/23/22 at Branch 1102, Until Discontinu ed, Routine FENTanyl PF 2022- No Slow IV Un devi (SUBLIMAZE 06-23 Push, PRN, it y of (PF)) 17:02: 17:02 Starting [place] injection 48 :48 on [facility] Medical 06/23/22 at Branch 1102, Until Discontinu ed, Routine lidocaine 2022- No PRN, Univers 1% (PF) 06-23 Starting ity of (XYLOCAINE) 16:58: 16:58 on e [place] injection 32 :32 06/23/22 at [facility] [address], [place] Until Discontinu ed, Routine lidocaine 2022- No PRN, Univers 1% (PF) 06-23 Starting ity of (XYLOCAINE) 16:58: 16:58 on e [place] injection 32 :32 06/23/22 at [facility] [address], [place] Until Discontinu ed, Routine darbepoetin 2021-06- No [id number] 200ug Univers lashay in 06-1801 ity of polysorbat 19:45: 18:55 [place] ([facility]) 00 :00 Medical injection Branch 200 mcg darbepoetin 2021-06- No [id number] 200ug 200 mcg, Univers lashay in 06-1801 Subcutaneo ity o f polysorbat 19:45: 18:55 us, ONCE, [facility]ire [facility] 00 :00 1 dose, On Medi juan injection [facility] [place] 200 mcg 06/18/22 at 1345, Routine darbepoetin 2021-06- No [id number] 100ug Univers lashay-polyso -06-05 ity of rbate 20:45: 19:46 [place] (ARANES) 00 :00 Medical injection Branch 100 mcg darbepoetin 2021-06- No [id number] 100ug 100 mcg, Univers lashay-polyso 2-06-0501 Subcutaneo i ty of rbate 20:45: 19:46 us, ONCE, [place] (ARANESP) 00 :00 1 dose, On Medi juan injection Fri Branch 100 mcg 06/05/22 at 1445, Routine GLIPIZIDE 2021-06 Yes [id number] TAKE 1 U nivers 10 mg 2-13 TABLET BY ity of tablet 00:00: MOUTH 4 [place] 00 TIMES A Medical DAY Branch traMADoL 50 2021-06 Yes 2745 TAKE 1 Univ ers mg tablet 2-13 TABLET BY ity o f 00:00: MOUTH [place] 00 EVERY 8 Medical HOURS Branch NEEDED FOR PAIN INDICATION FOR CHRONIC PAIN Indication s: chronic pain GLIPIZIDE 2021-06 Yes [id number] TAKE 1 U nivers 10 mg 2-13 TABLET BY ity of tablet 00:00: MOUTH 4 00 TIMES A Medical DAY Branch traMADoL 50 2021-06 Yes 2745 TAKE 1 Univ ers mg tablet 2-13 TABLET BY ity o f 00:00: MOUTH [place] 00 EVERY 8 Medical HOURS Branch NEEDED FOR PAIN INDICATION FOR CHRONIC PAIN Indication s: chronic pain GLIPIZIDE 2021-06 Yes [id number] TAKE 1 U nivers 10 mg 2-13 TABLET BY ity of tablet 00:00: MOUTH 4 TIMES A Medical DAY Branch traMADoL 50 2021-06 Yes 2745 TAKE 1 Univ ers mg tablet 2-13 TABLET BY ity o f 00:00: MOUTH [place] 00 EVERY 8 Medical HOURS Branch NEEDED FOR PAIN INDICATION FOR CHRONIC PAIN Indication s: chronic pain GLIPIZIDE 2021-06 Yes [id number] TAKE 1 U nivers 10 mg 2-13 TABLET BY ity of tablet 00:00: MOUTH 4 00 TIMES A Medical DAY Branch traMADoL 50 2021-06 Yes 2745 TAKE 1 Univ ers mg tablet 2-13 TABLET BY ity o f 00:00: MOUTH [place] 00 EVERY 8 Medical HOURS Branch NEEDED FOR PAIN INDICATION FOR CHRONIC PAIN Indication s: chronic pain GLIPIZIDE 2021-06 Yes [id number] TAKE 1 U nivers 10 mg 2-13 TABLET BY ity of tablet 00:00: MOUTH 4 00 TIMES A Medical DAY Branch traMADoL 50 2021-06 Yes 2745 TAKE 1 Univ ers mg tablet 2-13 TABLET BY ity o f 00:00: MOUTH [place] 00 EVERY 8 Medical HOURS Branch NEEDED FOR PAIN INDICATION FOR CHRONIC PAIN Indication s: chronic pain GLIPIZIDE 2021-06 Yes [id number] TAKE 1 U nivers 10 mg 2-13 TABLET BY ity of tablet 00:00: MOUTH 4 [place] 00 TIMES A Medical DAY Branch traMADoL 50 2021-06 Yes 2745 TAKE 1 Univ ers mg tablet 2-13 TABLET BY ity o f 00:00: MOUTH [place] 00 EVERY 8 Medical HOURS Branch NEEDED FOR PAIN INDICATION FOR CHRONIC PAIN Indication s: chronic pain GLIPIZIDE 2021-06 Yes [id number] TAKE 1 U nivers 10 mg 2-13 TABLET BY ity of tablet 00:00: MOUTH 4 00 TIMES A Medical DAY Branch traMADoL 50 2021-06 Yes 2745 TAKE 1 Univ ers mg tablet 2-13 TABLET BY ity o f 00:00: MOUTH [place] 00 EVERY 8 Medical HOURS Branch NEEDED FOR PAIN INDICATION FOR CHRONIC PAIN Indication s: chronic pain GLIPIZIDE 2021-06 Yes [id number] TAKE 1 U nivers 10 mg 2-13 TABLET BY ity of tablet 00:00: MOUTH 4 00 TIMES A Medical DAY Branch traMADoL 50 2021-06 Yes 2745 TAKE 1 Univ ers mg tablet 2-13 TABLET BY ity o f 00:00: MOUTH [place] 00 EVERY 8 Medical HOURS Branch NEEDED FOR PAIN INDICATION FOR CHRONIC PAIN Indication s: chronic pain GLIPIZIDE 2021-06 Yes [id number] TAKE 1 U nivers 10 mg 2-13 TABLET BY ity of tablet 00:00: MOUTH 4 00 TIMES A Medical DAY Branch traMADoL 50 2021-06 Yes 2745 TAKE 1 Univ ers mg tablet 2-13 TABLET BY ity o f 00:00: MOUTH [place] 00 EVERY 8 Medical HOURS Branch NEEDED FOR PAIN INDICATION FOR CHRONIC PAIN Indication s: chronic pain GLIPIZIDE 2021-06 Yes [id number] TAKE 1 U nivers 10 mg 2-13 TABLET BY ity of tablet 00:00: MOUTH 4 00 TIMES A Medical DAY Branch traMADoL 50 2021-06 Yes 2745 TAKE 1 Univ ers mg tablet 2-13 TABLET BY ity o f 00:00: MOUTH [place] 00 EVERY 8 Medical HOURS Branch NEEDED FOR PAIN INDICATION FOR CHRONIC PAIN Indication s: chronic pain GLIPIZIDE 2021-06 Yes [id number] TAKE 1 U nivers 10 mg 2-13 TABLET BY ity of tablet 00:00: MOUTH 4 00 TIMES A Medical DAY Branch traMADoL 50 2021-06 Yes 2745 TAKE 1 Univ ers mg tablet 2-13 TABLET BY ity o f 00:00: MOUTH [place] 00 EVERY 8 Medical HOURS Branch NEEDED FOR PAIN INDICATION FOR CHRONIC PAIN Indication s: chronic pain GLIPIZIDE 2021-06 Yes [id number] TAKE 1 U nivers 10 mg 2-13 TABLET BY ity of tablet 00:00: MOUTH 4 00 TIMES A Medical DAY Branch traMADoL 50 2021-06 Yes 2745 TAKE 1 Univ ers mg tablet 2-13 TABLET BY ity o f 00:00: MOUTH 00 EVERY 8 Medical HOURS Branch NEEDED FOR PAIN INDICATION FOR CHRONIC PAIN Indication s: chronic pain GLIPIZIDE 2021-06 Yes [id number] TAKE 1 U nivers 10 mg 2-13 TABLET BY ity of tablet 00:00: MOUTH TIMES A Medical DAY Branch traMADoL 50 2021-06 Yes 2745 TAKE 1 Univ ers mg tablet 2-13 TABLET BY ity o f 00:00: MOUTH 00 EVERY 8 Medical HOURS Branch NEEDED FOR PAIN INDICATION FOR CHRONIC PAIN Indication s: chronic pain GLIPIZIDE 2021-06 Yes [id number] TAKE 1 U nivers 10 mg 2-13 TABLET BY ity of tablet 00:00: MOUTH TIMES A Medical DAY Branch traMADoL 50 2021-06 Yes 2745 TAKE 1 Univ ers mg tablet 2-13 TABLET BY ity o f 00:00: MOUTH 00 EVERY 8 Medical HOURS Branch NEEDED FOR PAIN INDICATION FOR CHRONIC PAIN Indication s: chronic pain GLIPIZIDE 2021-06 Yes [id number] TAKE 1 U nivers 10 mg 2-13 TABLET BY ity of tablet 00:00: MOUTH TIMES A Medical DAY Branch traMADoL 50 2021-06 Yes 2745 TAKE 1 Univ ers mg tablet 2-13 TABLET BY ity o f 00:00: MOUTH 00 EVERY 8 Medical HOURS Branch NEEDED FOR PAIN INDICATION FOR CHRONIC PAIN Indication s: chronic pain GLIPIZIDE 2021-06 Yes [id number] TAKE 1 U nivers 10 mg 2-13 TABLET BY ity of tablet 00:00: MOUTH 4 00 TIMES A Medical DAY Branch traMADoL 50 2021-06 Yes 2745 TAKE 1 Univ ers mg tablet 2-13 TABLET BY ity o f 00:00: MOUTH 00 EVERY 8 Medical HOURS Branch NEEDED FOR PAIN INDICATION FOR CHRONIC PAIN Indication s: chronic pain GLIPIZIDE 2021-06 Yes [id number] TAKE 1 U nivers 10 mg 2-13 TABLET BY ity of tablet 00:00: MOUTH 4 00 TIMES A Medical DAY Branch traMADoL 50 2021-06 Yes 2745 TAKE 1 Univ ers mg tablet 2-13 TABLET BY ity o f 00:00: MOUTH [place] 00 EVERY 8 Medical HOURS Branch NEEDED FOR PAIN INDICATION FOR CHRONIC PAIN Indication s: chronic pain GLIPIZIDE 2021-06 Yes [id number] TAKE 1 U nivers 10 mg 2-13 TABLET BY ity of tablet 00:00: MOUTH 4 TIMES A Medical DAY Branch traMADoL 50 2021-06 Yes 2745 TAKE 1 Univ ers mg tablet 2-13 TABLET BY ity o f 00:00: MOUTH 00 EVERY 8 Medical HOURS Branch NEEDED FOR PAIN INDICATION FOR CHRONIC PAIN Indication s: chronic pain GLIPIZIDE 2021-06 Yes [id number] TAKE 1 U nivers 10 mg 2-13 TABLET BY ity of tablet 00:00: MOUTH 4 TIMES A Medical DAY Branch traMADoL 50 2021-06 Yes 2745 TAKE 1 Univ ers mg tablet 2-13 TABLET BY ity o f 00:00: MOUTH 00 EVERY 8 Medical HOURS Branch NEEDED FOR PAIN INDICATION FOR CHRONIC PAIN Indication s: chronic pain GLIPIZIDE 2021-06 Yes [id number] TAKE 1 U nivers 10 mg 2-13 TABLET BY ity of tablet 00:00: MOUTH 4 TIMES A Medical DAY Branch traMADoL 50 2021-06 Yes 2745 TAKE 1 Univ ers mg tablet 2-13 TABLET BY ity o f 00:00: MOUTH 00 EVERY 8 Medical HOURS Branch NEEDED FOR PAIN INDICATION FOR CHRONIC PAIN Indication s: chronic pain GLIPIZIDE 2021-06 Yes [id number] TAKE 1 U nivers 10 mg 2-13 TABLET BY ity of tablet 00:00: MOUTH 4 TIMES A Medical DAY Branch traMADoL 50 2021-06 Yes 2745 TAKE 1 Univ ers mg tablet 2-13 TABLET BY ity o f 00:00: MOUTH [place] 00 EVERY 8 Medical HOURS Branch NEEDED FOR PAIN INDICATION FOR CHRONIC PAIN Indication s: chronic pain GLIPIZIDE 2021-06 Yes [id number] TAKE 1 U nivers 10 mg 2-13 TABLET BY ity of tablet 00:00: MOUTH 4 TIMES A Medical DAY Branch traMADoL 50 2021-06 Yes 2745 TAKE 1 Univ ers mg tablet 2-13 TABLET BY ity o f 00:00: MOUTH [place] 00 EVERY 8 Medical HOURS Branch NEEDED FOR PAIN INDICATION FOR CHRONIC PAIN Indication s: chronic pain GLIPIZIDE 2021-06 Yes [id number] TAKE 1 U nivers 10 mg 2-13 TABLET BY ity of tablet 00:00: MOUTH 4 [place] TIMES A Medical DAY Branch traMADoL 50 2021-06 Yes 2745 TAKE 1 Univ ers mg tablet 2-13 TABLET BY ity o f 00:00: MOUTH [place] 00 EVERY 8 Medical HOURS Branch NEEDED FOR PAIN INDICATION FOR CHRONIC PAIN Indication s: chronic pain GLIPIZIDE 2021-06 Yes [id number] TAKE 1 U nivers 10 mg 2-13 TABLET BY ity of tablet 00:00: MOUTH 4 [place] TIMES A Medical DAY Branch GLIPIZIDE 2021-06 Yes [id number] TAKE 1 U nivers 10 mg 2-13 TABLET BY ity of tablet 00:00: MOUTH 4 [place] TIMES A Medical DAY Branch GLIPIZIDE 2021-06 Yes [id number] TAKE 1 U nivers 10 mg 2-13 TABLET BY ity of tablet 00:00: MOUTH 4 [place] TIMES A Medical DAY Branch GLIPIZIDE 2021-06 Yes [id number] TAKE 1 U nivers 10 mg 2-13 TABLET BY ity of tablet 00:00: MOUTH 4 [place] TIMES A Medical DAY Branch GLIPIZIDE 2021-06 Yes [id number] TAKE 1 U nivers 10 mg 2-13 TABLET BY ity of tablet 00:00: MOUTH 4 [place] TIMES A Medical DAY Branch GLIPIZIDE 2021-06 Yes [id number] TAKE 1 U nivers 10 mg 2-13 TABLET BY ity of tablet 00:00: MOUTH 4 [place] TIMES A Medical DAY Branch GLIPIZIDE 2021-06 Yes [id number] TAKE 1 U nivers 10 mg 2-13 TABLET BY ity of tablet 00:00: MOUTH 4 [place] TIMES A Medical DAY Branch GLIPIZIDE 2021-06 Yes [id number] TAKE 1 U nivers 10 mg 2-13 TABLET BY ity of tablet 00:00: MOUTH 4 [place] TIMES A Medical DAY Branch GLIPIZIDE 2021-06 Yes [id number] TAKE 1 U nivers 10 mg 2-13 TABLET BY ity of tablet 00:00: MOUTH 4 TIMES A Medical DAY Branch GLIPIZIDE 2021-06 Yes [id number] TAKE 1 U nivers 10 mg 2-13 TABLET BY ity of tablet 00:00: MOUTH 4 TIMES A Medical DAY Branch GLIPIZIDE 2021-06 Yes [id number] TAKE 1 U nivers 10 mg 2-13 TABLET BY ity of tablet 00:00: MOUTH 4 TIMES A Medical DAY Branch GLIPIZIDE 2021-06 Yes [id number] TAKE 1 U nivers 10 mg 2-13 TABLET BY ity of tablet 00:00: MOUTH 4 TIMES A Medical DAY Branch GLIPIZIDE 2021-06 Yes [id number] TAKE 1 U nivers 10 mg 2-13 TABLET BY ity of tablet 00:00: MOUTH 4 [place] TIMES A Medical DAY Branch GLIPIZIDE 2021-06 Yes [id number] TAKE 1 U nivers 10 mg 2-13 TABLET BY ity of tablet 00:00: MOUTH 4 [place] TIMES A Medical DAY Branch GLIPIZIDE 2021-06 Yes [id number] TAKE 1 U nivers 10 mg 2-13 TABLET BY ity of tablet 00:00: MOUTH 4 [place] TIMES A Medical DAY Branch GLIPIZIDE 2021-06 Yes [id number] TAKE 1 U nivers 10 mg 2-13 TABLET BY ity of tablet 00:00: MOUTH 4 [place] TIMES A Medical DAY Branch GLIPIZIDE 2021-06 Yes [id number] TAKE 1 U nivers 10 mg 2-13 TABLET BY ity of tablet 00:00: MOUTH 4 [place] TIMES A Medical DAY Branch GLIPIZIDE 2021-06 Yes [id number] TAKE 1 U nivers 10 mg 2-13 TABLET BY ity of tablet 00:00: MOUTH 4 [place] TIMES A Medical DAY Branch GLIPIZIDE 2021-06 Yes [id number] TAKE 1 U nivers 10 mg 2-13 TABLET BY ity of tablet 00:00: MOUTH 4 [place] TIMES A Medical DAY Branch GLIPIZIDE 2021-06 Yes [id number] TAKE 1 U nivers 10 mg 2-13 TABLET BY ity of tablet 00:00: MOUTH 4 [place] TIMES A Medical DAY Branch GLIPIZIDE 2021-06 Yes [id number] TAKE 1 U nivers 10 mg 2-13 TABLET BY ity of tablet 00:00: MOUTH 4 [place] 00 TIMES A Medical DAY Branch GLIPIZIDE 2021-06 Yes [id number] TAKE 1 U nivers 10 mg 2-13 TABLET BY ity of tablet 00:00: MOUTH 4 [place] 00 TIMES A Medical DAY Branch GLIPIZIDE 2021-06 Yes [id number] TAKE 1 U nivers 10 mg 2-13 TABLET BY ity of tablet 00:00: MOUTH 4 [place] 00 TIMES A Medical DAY Branch GLIPIZIDE 2021-06- No [id number] TAKE 1 Univers 10 mg 2-13 04-03 TABLET BY ity of tablet 00:00: 00:00 MOUTH 4 [place] 00 :00 TIMES A Medical DAY Branch GLIPIZIDE 2021-06- No [id number] TAKE 1 Univers 10 mg 2-13 04-03 TABLET BY ity of tablet 00:00: 00:00 MOUTH 4 [place] 00 :00 TIMES A Medical DAY Branch GLIPIZIDE 2021-06- No [id number] TAKE 1 [facility] 10 mg 2-13 04-03 TABLET BY ity of tablet 00:00: 00:00 MOUTH 4 [place] 00 :00 TIMES A Medical DAY Branch GLIPIZIDE 2021-06- No [id number] TAKE 1 Univers 10 mg 2-13 04-03 TABLET BY ity of tablet 00:00: 00:00 MOUTH 4 [place] 00 :00 TIMES A Medical DAY Branch GLIPIZIDE 2021-06- No [id number] TAKE 1 [facility] 10 mg 2-13 04-03 TABLET BY ity of tablet 00:00: 00:00 MOUTH 4 [place] 00 :00 TIMES A Medical DAY Branch GLIPIZIDE 2021-06- No [id number] TAKE 1 [facility] 10 mg 2-13 04-03 TABLET BY ity of tablet 00:00: 00:00 MOUTH 4 [place] 00 :00 TIMES A Medical DAY Branch ePHEDrine 2021-06- No Slow IV Univ ers 25 mg/5 mL 07-22 Push, ONCE it y of (5 mg/mL) 15:29: 15:48 INTRA [place] syringe 00 :38 PROCEDURE, Medica l Starting Branch on [place] 05/21/22 at 0929, Until Wed05/21/22 at 0948, Routine, Intra-op ePHEDrine 2021-06- No Slow IV Univ ers 25 mg/5 mL 07-22 Push, ONCE it y of (5 mg/mL) 15:29: 15:48 INTRA [place] syringe 00 :38 PROCEDURE, Medica l Starting Branch on [facility] 05/21/22 at 0929, Until [place] 05/21/22 at 0948, Routine, Intra-op phenylephri 2021-06- No Slow IV Un devi ne 07-22 Push, ONCE ity of (VAZCULEP) 14:26: 15:48 INTRA [place] injection 00 :38 PROCEDURE, Medi juan Starting Branch on [facility] 05/21/22 at 0826, Until [facility] 05/21/22 at 0948, Routine, Intra-op phenylephri 2021-06- No Slow IV Un devi ne 07-22 Push, ONCE ity of (VAZCULEP) 14:26: 15:48 INTRA [place] injection 00 :38 PROCEDURE, Medi juan Starting Branch on [facility] 05/21/22 at 0826, Until [facility] 05/21/22 at 0948, Routine, Intra-op heparin 2021-06- No ONCE INTRA Uni vers (1,000 07-22 PROCEDURE, ity of unit/mL, 10 14:25: 15:48 Starting [place] mL vial) 00 :38 on [facility] 05/21/22 at Branch 0825, Until [facility] 05/21/22 at 0948, Routine, Intra-op heparin 2021-06- No ONCE INTRA Uni vers (1,000 07-22 PROCEDURE, ity of unit/mL, 10 14:25: 15:48 Starting [place] mL vial) 00 :38 on [facility] Medical 05/21/22 at Branch 0825, Until [facility] 05/21/22 at 0948, Routine, Intra-op heparin 2021-06- No CONTINUOUS Uni vers 25,000 07-22 PRN, ity of Units/250 14:10: 16:47 Starting [place] mL 00 :30 on [facility] (Premixed 05/21/22 at Bran ch Bag) in 0810, 0.45 % NS Until [facility] 05/21/22 at 1047, Routine, Intra-op bupivacaine 2021-06- No PRN, Unive rs (preserv 07-22 Starting ity of free) 14:10: 16:47 on [facility] (SENSORCAIN 00 :30 05/21/22 at Vt dical E MPF) 0.25 0810, Branch % (2.5 Until [place] mg/mL) 05/21/22 at injection 1047, Routine, Intra-op propofoL IV 2021-06- No Intravenou Univers infusion 07-22 s, ONCE ity of 13:57: 15:48 INTRA [place] 00 :38 PROCEDURE, Medical Starting Branch on [facility] 05/21/22 at 0757, Until [facility] 05/21/22 at 0948, Routine, Intra-op propofoL IV 2021-06- No Intravenou Univers infusion 07-22 s, ONCE ity of 13:57: 15:48 INTRA [place] 00 :38 PROCEDURE, Medical Starting Branch on [facility] 05/21/22 at 0757, Until [facility] 05/21/22 at 0948, Routine, Intra-op NaCl 0.9% 2021-06- No CONTINUOUS U nivers (NS) IV 07-22 PRN, ity of infusion 13:53: 16:47 [place] 00 :30 on [facility] 05/21/22 at Branch 0753, Until [facility] 05/21/22 at 1047, Routine, Intra-op ceFAZolin 2021-06- No Slow IV Univ ers (ANCEF) 07-22 Push, ONCE ity o f injection 13:51: 15:48 INTRA [place] 00 :38 PROCEDURE, Medical Starting Branch on [facility] 05/21/22 at 0751, Until [place] 05/21/22 at 0948, RENETTA, Intra-op ceFAZolin 2021-06- No Slow IV Univ ers (ANCEF) 07-22 Push, ONCE ity o f injection 13:51: 15:48 INTRA [place] 00 :38 PROCEDURE, Medical Starting Branch on [facility] 05/21/22 at 0751, Until [facility] 05/21/22 at 0948, RENETTA, Intra-op ketamine 2021-06- No Intravenou Un devi (KETALAR) 07-22 s, ONCE ity of injection 13:36: 15:48 INTRA [place] 00 :38 PROCEDURE, Medical Starting Branch on [place] 05/21/22 at 0736, Until [place] 05/21/22 at 0948, Routine, Intra-op ketamine 2021-06- No Intravenou Un devi (KETALAR) 07-22 s, ONCE ity of injection 13:36: 15:48 INTRA [place] 00 :38 PROCEDURE, Medical Starting Branch on [place] 05/21/22 at 0736, Until [place] 05/21/22 at 0948, Routine, Intra-op midazolam 2021-06- No IV Push, Uni vers (VERSED) 07-22 ONCE INTRA ity of injection 13:35: 15:48 PROCEDURE, [place] 00 :38 Starting Medical on [place] Branch 05/21/22 at 0735, Until [place] 05/21/22 at 0948, Routine, Intra-op midazolam 2021-06- No IV Push, Uni vers (VERSED) 07-22 ONCE INTRA ity of injection 13:35: 15:48 PROCEDURE, [place] 00 :38 Starting Medical on [place] Branch 05/21/22 at 0735, Until [place] 05/21/22 at 0948, Routine, Intra-op FENTanyl PF 2021-06- No Intravenou Univers (SUBLIMAZE 07-22 s, ONCE ity o f (PF)) 13:29: 15:48 INTRA [place] injection 00 :38 PROCEDURE, Medi juan Starting Branch on [place] 05/21/22 at 0729, Until [place] 05/21/22 at 0948, Routine, Intra-op FENTanyl PF 2021-06- No Intravenou Univers (SUBLIMAZE 07-22 s, ONCE ity o f (PF)) 13:29: 15:48 INTRA [place] injection 00 :38 PROCEDURE, Medi juan Starting Branch on [place] 05/21/22 at 0729, Until [place] 05/21/22 at 0948, Routine, Intra-op NaCl 0.9% 2021-06 Yes 1000mL at 42 Unive rs (NS) IV 2-01 mL/hr, IV ity of infusion 12:45: Infusion, [place] 1,000 mL 00 CONTINUOUS Medic al , Starting Branch on [place] 05/21/22 at 0645, Until Discontinu ed, Routine, DSU Pre-op NaCl 0.9% 2021-06 1000mL at 42 Univ ers (NS) IV 2 12-01 mL/hr, IV ity of infusion 12:45: 18:51 Infusion, [place] 1,000 mL 00 :38 CONTINUOUS Medic al , Starting Branch on [place] 05/21/22 at 0645, Until [place] 05/21/22 at 1251, Routine, DSU Pre-op digoxin 125 2021-06 Yes [id number] 125ug Take 1 Univers mcg (0.125 1-17 tablet by ity of mg) tablet 00:00: mouth [place] 00 every Medical other day. Branch digoxin 125 2021-06 Yes [id number] 125ug Take 1 Univers mcg (0.125 1-17 tablet by ity of mg) tablet 00:00: mouth [place] 00 every Medical other day. Branch digoxin 125 2021-06 Yes [id number] 125ug Take 1 Univers mcg (0.125 1-17 tablet by ity of mg) tablet 00:00: mouth [place] 00 every Medical other day. Branch digoxin 125 2021-06 Yes [id number] 125ug Take 1 Univers mcg (0.125 1-17 tablet by ity of mg) tablet 00:00: mouth [place] 00 every Medical other day. Branch digoxin 125 2021-06 Yes [id number] 125ug Take 1 Univers mcg (0.125 1-17 tablet by ity of mg) tablet 00:00: mouth [place] 00 every Medical other day. Branch digoxin 125 2021-06 Yes [id number] 125ug Take 1 Univers mcg (0.125 1-17 tablet by ity of mg) tablet 00:00: mouth [place] 00 every Medical other day. Branch digoxin 125 2021-06 Yes [id number] 125ug Take 1 Univers mcg (0.125 1-17 tablet by ity of mg) tablet 00:00: mouth [place] 00 every Medical other day. Branch digoxin 125 2021-06 Yes [id number] 125ug Take 1 Univers mcg (0.125 1-17 tablet by ity of mg) tablet 00:00: mouth [place] 00 every Medical other day. Branch digoxin 125 2021-06 Yes [id number] 125ug Take 1 Univers mcg (0.125 1-17 tablet by ity of mg) tablet 00:00: mouth [place] 00 every Medical other day. Branch digoxin 125 2021-06 Yes [id number] 125ug Take 1 Univers mcg (0.125 1-17 tablet by ity of mg) tablet 00:00: mouth [place] 00 every Medical other day. Branch digoxin 125 2021-06 Yes [id number] 125ug Take 1 Univers mcg (0.125 1-17 tablet by ity of mg) tablet 00:00: mouth [place] 00 every Medical other day. Branch digoxin 125 2021-06 Yes [id number] 125ug Take 1 Univers mcg (0.125 1-17 tablet by ity of mg) tablet 00:00: mouth [place] 00 every Medical other day. Branch digoxin 125 2021-06 Yes [id number] 125ug Take 1 Univers mcg (0.125 1-17 tablet by ity of mg) tablet 00:00: mouth [place] 00 every Medical other day. Branch digoxin 125 2021-06 Yes [id number] 125ug Take 1 Univers mcg (0.125 1-17 tablet by ity of mg) tablet 00:00: mouth [place] 00 every Medical other day. Branch digoxin 125 2021-06 Yes [id number] 125ug Take 1 Univers mcg (0.125 1-17 tablet by ity of mg) tablet 00:00: mouth [place] 00 every Medical other day. Branch digoxin 125 2021-06 Yes [id number] 125ug Take 1 Univers mcg (0.125 1-17 tablet by ity of mg) tablet 00:00: mouth [place] 00 every Medical other day. Branch digoxin 125 2021-06 Yes [id number] 125ug Take 1 Univers mcg (0.125 1-17 tablet by ity of mg) tablet 00:00: mouth [place] 00 every Medical other day. Branch digoxin 125 2021-06 Yes [id number] 125ug Take 1 Univers mcg (0.125 1-17 tablet by ity of mg) tablet 00:00: mouth [place] 00 every Medical other day. Branch digoxin 125 2021-06 Yes [id number] 125ug Take 1 Univers mcg (0.125 1-17 tablet by ity of mg) tablet 00:00: mouth [place] 00 every Medical other day. Branch digoxin 125 2021-06 Yes [id number] 125ug Take 1 Univers mcg (0.125 1-17 tablet by ity of mg) tablet 00:00: mouth [place] 00 every Medical other day. Branch digoxin 125 2021-06 Yes [id number] 125ug Take 1 Univers mcg (0.125 1-17 tablet by ity of mg) tablet 00:00: mouth [place] 00 every Medical other day. Branch digoxin 125 2021-06 Yes [id number] 125ug Take 1 Univers mcg (0.125 1-17 tablet by ity of mg) tablet 00:00: mouth [place] 00 every Medical other day. Branch digoxin 125 2021-06 Yes [id number] 125ug Take 1 Univers mcg (0.125 1-17 tablet by ity of mg) tablet 00:00: mouth [place] 00 every Medical other day. Branch digoxin 125 2021-06 Yes [id number] 125ug Take 1 Univers mcg (0.125 1-17 tablet by ity of mg) tablet 00:00: mouth [place] 00 every Medical other day. Branch digoxin 125 2021-06 Yes [id number] 125ug Take 1 Univers mcg (0.125 1-17 tablet by ity of mg) tablet 00:00: mouth [place] 00 every Medical other day. Branch digoxin 125 2021-06 Yes [id number] 125ug Take 1 Univers mcg (0.125 1-17 tablet by ity of mg) tablet 00:00: mouth [place] 00 every Medical other day. Branch digoxin 125 2021-06 Yes [id number] 125ug Take 1 Univers mcg (0.125 1-17 tablet by ity of mg) tablet 00:00: mouth [place] 00 every Medical other day. Branch digoxin 125 2021-06 Yes [id number] 125ug Take 1 Univers mcg (0.125 1-17 tablet by ity of mg) tablet 00:00: mouth [place] 00 every Medical other day. Branch digoxin 125 2021-06 Yes [id number] 125ug Take 1 Univers mcg (0.125 1-17 tablet by ity of mg) tablet 00:00: mouth [place] 00 every Medical other day. Branch digoxin 125 2021-06 Yes [id number] 125ug Take 1 Univers mcg (0.125 1-17 tablet by ity of mg) tablet 00:00: mouth [place] 00 every Medical other day. Branch digoxin 125 2021-06 Yes [id number] 125ug Take 1 Univers mcg (0.125 1-17 tablet by ity of mg) tablet 00:00: mouth [place] 00 every Medical other day. Branch digoxin 125 2021-06 Yes [id number] 125ug Take 1 Univers mcg (0.125 1-17 tablet by ity of mg) tablet 00:00: mouth [place] 00 every Medical other day. Branch digoxin 125 2021-06 Yes [id number] 125ug Take 1 Univers mcg (0.125 1-17 tablet by ity of mg) tablet 00:00: mouth [place] 00 every Medical other day. Branch digoxin 125 2021-06 Yes [id number] 125ug Take 1 Univers mcg (0.125 1-17 tablet by ity of mg) tablet 00:00: mouth [place] 00 every Medical other day. Branch digoxin 125 2021-06 Yes [id number] 125ug Take 1 Univers mcg (0.125 1-17 tablet by ity of mg) tablet 00:00: mouth [place] 00 every Medical other day. Branch digoxin 125 2021-06 Yes [id number] 125ug Take 1 Univers mcg (0.125 1-17 tablet by ity of mg) tablet 00:00: mouth [place] 00 every Medical other day. Branch digoxin 125 2021-06 Yes [id number] 125ug Take 1 Univers mcg (0.125 1-17 tablet by ity of mg) tablet 00:00: mouth [place] 00 every Medical other day. Branch digoxin 125 2021-06 Yes [id number] 125ug Take 1 Univers mcg (0.125 1-17 tablet by ity of mg) tablet 00:00: mouth [place] 00 every Medical other day. Branch digoxin 125 2021-06 Yes [id number] 125ug Take 1 Univers mcg (0.125 1-17 tablet by ity of mg) tablet 00:00: mouth [place] 00 every Medical other day. Branch digoxin 125 2021-06 Yes [id number] 125ug Take 1 Univers mcg (0.125 1-17 tablet by ity of mg) tablet 00:00: mouth [place] 00 every Medical other day. Branch digoxin 125 2021-06 Yes [id number] 125ug Take 1 Univers mcg (0.125 1-17 tablet by ity of mg) tablet 00:00: mouth [place] 00 every Medical other day. Branch digoxin 125 2021-06 Yes [id number] 125ug Take 1 Univers mcg (0.125 1-17 tablet by ity of mg) tablet 00:00: mouth [place] 00 every Medical other day. Branch digoxin 125 2021-06 Yes [id number] 125ug Take 1 Univers mcg (0.125 1-17 tablet by ity of mg) tablet 00:00: mouth [place] 00 every Medical other day. Branch digoxin 125 2021-06 Yes [id number] 125ug Take 1 Univers mcg (0.125 1-17 tablet by ity of mg) tablet 00:00: mouth [place] 00 every Medical other day. Branch digoxin 125 2021-06 Yes [id number] 125ug Take 1 Univers mcg (0.125 1-17 tablet by ity of mg) tablet 00:00: mouth [place] 00 every Medical other day. Branch digoxin 125 2021-06 Yes [id number] 125ug Take 1 Univers mcg (0.125 1-17 tablet by ity of mg) tablet 00:00: mouth [place] 00 every Medical other day. Branch digoxin 125 2021-06 Yes [id number] 125ug Take 1 Univers mcg (0.125 1-17 tablet by ity of mg) tablet 00:00: mouth [place] 00 every Medical other day. Branch digoxin 125 2021-06 Yes [id number] 125ug Take 1 Univers mcg (0.125 1-17 tablet by ity of mg) tablet 00:00: mouth [place] 00 every Medical other day. Branch digoxin 125 2021-06 Yes [id number] 125ug Take 1 Univers mcg (0.125 1-17 tablet by ity of mg) tablet 00:00: mouth [place] 00 every Medical other day. Branch digoxin 125 2021-06 Yes [id number] 125ug Take 1 Univers mcg (0.125 1-17 tablet by ity of mg) tablet 00:00: mouth [place] 00 every Medical other day. Branch digoxin 125 2021-06- No [id number] 125ug Take 1 Univers mcg (0.125 1-17 02-13 tablet by ity of mg) tablet 00:00: 00:00 mouth [place] 00 :00 every Medical other day. Branch ciprofloxac 2021-06 Yes 500mg Take 1 Uni vers in HCl 1-16 tablet by ity of (CIPRO) 500 00:00: mouth in [place] mg tablet 00 the Medical morning. Branch ciprofloxac 2021-06 Yes 500mg Take 1 Uni vers in HCl 1-16 tablet by ity of (CIPRO) 500 00:00: mouth in [place] mg tablet 00 the Medical morning. Branch ciprofloxac 2- Yes 500mg Take 1 Uni vers in HCl 1-16 tablet by ity of (CIPRO) 500 00:00: mouth in [place] mg tablet 00 the Medical morning. Branch ciprofloxac 2- Yes 500mg Take 1 Uni vers in HCl 1-16 tablet by ity of (CIPRO) 500 00:00: mouth in [place] mg tablet 00 the Medical morning. Branch ciprofloxac 2- Yes 500mg Take 1 Uni vers in HCl 1-16 tablet by ity of (CIPRO) 500 00:00: mouth in [place] mg tablet 00 the Medical morning. Branch ciprofloxac 2- Yes 500mg Take 1 Uni vers in HCl 1-16 tablet by ity of (CIPRO) 500 00:00: mouth in [place] mg tablet 00 the Medical morning. Branch ciprofloxac 2021- Yes 500mg Take 1 Uni vers in HCl 1-16 tablet by ity of (CIPRO) 500 00:00: mouth in [place] mg tablet 00 the Medical morning. Branch ciprofloxac 2- Yes 500mg Take 1 Uni vers in HCl 1-16 tablet by ity of (CIPRO) 500 00:00: mouth in [place] mg tablet 00 the Medical morning. Branch ciprofloxac 2-1 Yes 500mg Take 1 Uni vers in HCl 1-16 tablet by ity of (CIPRO) 500 00:00: mouth in [place] mg tablet 00 the Medical morning. Branch ciprofloxac 2- Yes 500mg Take 1 Uni vers in HCl 1-16 tablet by ity of (CIPRO) 500 00:00: mouth in [place] mg tablet 00 the Medical morning. Branch ciprofloxac 2-1 Yes 500mg Take 1 Uni vers in HCl 1-16 tablet by ity of (CIPRO) 500 00:00: mouth in [place] mg tablet 00 the Medical morning. Branch ciprofloxac 2-1 Yes 500mg Take 1 Uni vers in HCl 1-16 tablet by ity of (CIPRO) 500 00:00: mouth in [place] mg tablet 00 the Medical morning. Branch ciprofloxac 2021-06 Yes 500mg Take 1 Uni vers in HCl 1-16 tablet by ity of (CIPRO) 500 00:00: mouth in [place] mg tablet 00 the Medical morning. Branch ciprofloxac 2021-06 Yes 500mg Take 1 Uni vers in HCl 1-16 tablet by ity of (CIPRO) 500 00:00: mouth in [place] mg tablet 00 the Medical morning. Branch ciprofloxac 2021-06- No 500mg Take 1 Un devi in HCl 1-16 05-21 tablet by ity of (CIPRO) 500 00:00: 00:00 mouth in [place] mg tablet 00 :00 the Medical morning. Branch ciprofloxac 2021-06- No 500mg Take 1 Un devi in HCl 1-16 05-21 tablet by ity of (CIPRO) 500 00:00: 00:00 mouth in [place] mg tablet 00 :00 the Medical morning. Branch ciprofloxac 2021-06- No 500mg Take 1 Un devi in HCl -16 05-21 tablet by ity of (CIPRO) 500 00:00: 00:00 mouth in [place] mg tablet 00 :00 the Medical morning. Branch ciprofloxac 2021-06- No 500mg Take 1 Un devi in HCl -16 05-21 tablet by ity of (CIPRO) 500 00:00: 00:00 mouth in [place] mg tablet 00 :00 the Medical morning. Branch ciprofloxac 2021-06- No 500mg Take 1 Un devi in HCl -16 05-21 tablet by ity of (CIPRO) 500 00:00: 00:00 mouth in [place] mg tablet 00 :00 the Medical morning. Branch ciprofloxac 2021-06- No 500mg Take 1 Un devi in HCl -16 05-21 tablet by ity of (CIPRO) 500 00:00: 00:00 mouth in [place] mg tablet 00 :00 the Medical morning. Branch carvediloL 2021-06 Yes [id number] TAKE ONE Univers 3.125 mg 06-23 (1) ity of tablet 00:00: TABLET(S) [place] 00 BY MOUTH Medical TWICE A Branch DAY WITH MEALS. carvediloL 2021-06 Yes [id number] TAKE ONE Univers 3.125 mg 1-03 9100 (1) ity of tablet 00:00: TABLET(S) [place] 00 BY MOUTH Medical TWICE A Branch DAY WITH MEALS. carvediloL 2021-06 Yes [id number] TAKE ONE Univers 3.125 mg 1- 9100 (1) ity of tablet 00:00: TABLET(S) [place] 00 BY MOUTH Medical TWICE A Branch DAY WITH MEALS. carvediloL 2021-06 Yes [id number] TAKE ONE Univers 3.125 mg 1- 9100 (1) ity of tablet 00:00: TABLET(S) [place] 00 BY MOUTH Medical TWICE A Branch DAY WITH MEALS. carvediloL 2021-06 Yes [id number] TAKE ONE Univers 3.125 mg 1- 9100 (1) ity of tablet 00:00: TABLET(S) [place] 00 BY MOUTH Medical TWICE A Branch DAY WITH MEALS. carvediloL 2021-06 Yes [id number] TAKE ONE Univers 3.125 mg - 9100 (1) ity of tablet 00:00: TABLET(S) [place] 00 BY MOUTH Medical TWICE A Branch DAY WITH MEALS. carvediloL 2021-06 Yes [id number] TAKE ONE Univers 3.125 mg - 9100 (1) ity of tablet 00:00: TABLET(S) [place] 00 BY MOUTH Medical TWICE A Branch DAY WITH MEALS. carvediloL 2021-06 Yes [id number] TAKE ONE Univers 3.125 mg - 9100 (1) ity of tablet 00:00: TABLET(S) [place] 00 BY MOUTH Medical TWICE A Branch DAY WITH MEALS. carvediloL 2021-06 Yes [id number] TAKE ONE Univers 3.125 mg 1-03 9100 (1) ity of tablet 00:00: TABLET(S) [place] 00 BY MOUTH Medical TWICE A Branch DAY WITH MEALS. carvediloL 2021-06 Yes [id number] TAKE ONE Univers 3.125 mg 1-03 9100 (1) ity of tablet 00:00: TABLET(S) [place] 00 BY MOUTH Medical TWICE A Branch DAY WITH MEALS. carvediloL 2021-06 Yes [id number] TAKE ONE Univers 3.125 mg 1- 9100 (1) ity of tablet 00:00: TABLET(S) [place] 00 BY MOUTH Medical TWICE A Branch DAY WITH MEALS. carvediloL 2021-06 Yes [id number] TAKE ONE Univers 3.125 mg 1- 9100 (1) ity of tablet 00:00: TABLET(S) [place] 00 BY MOUTH Medical TWICE A Branch DAY WITH MEALS. carvediloL 2021-06 Yes [id number] TAKE ONE Univers 3.125 mg 1- 9100 (1) ity of tablet 00:00: TABLET(S) [place] 00 BY MOUTH Medical TWICE A Branch DAY WITH MEALS. carvediloL 2021-06 Yes [id number] TAKE ONE Univers 3.125 mg 1- 9100 (1) ity of tablet 00:00: TABLET(S) [place] 00 BY MOUTH Medical TWICE A Branch DAY WITH MEALS. carvediloL 2021-06 Yes [id number] TAKE ONE Univers 3.125 mg - 9100 (1) ity of tablet 00:00: TABLET(S) [place] 00 BY MOUTH Medical TWICE A Branch DAY WITH MEALS. carvediloL 2021-06 Yes [id number] TAKE ONE Univers 3.125 mg - 9100 (1) ity of tablet 00:00: TABLET(S) [place] 00 BY MOUTH Medical TWICE A Branch DAY WITH MEALS. carvediloL 2021-06 Yes [id number] TAKE ONE Univers 3.125 mg - 9100 (1) ity of tablet 00:00: TABLET(S) [place] 00 BY MOUTH Medical TWICE A Branch DAY WITH MEALS. carvediloL 2021-06 Yes [id number] TAKE ONE Univers 3.125 mg - 9100 (1) ity of tablet 00:00: TABLET(S) [place] 00 BY MOUTH Medical TWICE A Branch DAY WITH MEALS. carvediloL 2021-06 Yes [id number] TAKE ONE Univers 3.125 mg 1- 9100 (1) ity of tablet 00:00: TABLET(S) [place] 00 BY MOUTH Medical TWICE A Branch DAY WITH MEALS. carvediloL 2021-06 Yes [id number] TAKE ONE [facility] 3.125 mg - 9100 (1) ity of tablet 00:00: TABLET(S) [place] 00 BY MOUTH Medical TWICE A Branch DAY WITH MEALS. carvediloL 2021-06 Yes [id number] TAKE ONE [facility] 3.125 mg 1-03 9100 (1) ity of tablet 00:00: TABLET(S) [place] 00 BY MOUTH Medical TWICE A Branch DAY WITH MEALS. carvediloL 2021-06 Yes [id number] TAKE ONE [facility] 3.125 mg 1- 9100 (1) ity of tablet 00:00: TABLET(S) [place] 00 BY MOUTH Medical TWICE A Branch DAY WITH MEALS. carvediloL 2021-06 Yes [id number] TAKE ONE Univers 3.125 mg 1- 9100 (1) ity of tablet 00:00: TABLET(S) [place] 00 BY MOUTH Medical TWICE A Branch DAY WITH MEALS. carvediloL 2021-06 Yes [id number] TAKE ONE Univers 3.125 mg 1- 9100 (1) ity of tablet 00:00: TABLET(S) [place] 00 BY MOUTH Medical TWICE A Branch DAY WITH MEALS. carvediloL 2021-06 Yes [id number] TAKE ONE Univers 3.125 mg 1- 9100 (1) ity of tablet 00:00: TABLET(S) [place] 00 BY MOUTH Medical TWICE A Branch DAY WITH MEALS. carvediloL 2021-06 Yes [id number] TAKE ONE Univers 3.125 mg - 9100 (1) ity of tablet 00:00: TABLET(S) [place] 00 BY MOUTH Medical TWICE A Branch DAY WITH MEALS. carvediloL 2021-06 Yes [id number] TAKE ONE [facility] 3.125 mg - 9100 (1) ity of tablet 00:00: TABLET(S) [place] 00 BY MOUTH Medical TWICE A Branch DAY WITH MEALS. carvediloL 2021-06 Yes [id number] TAKE ONE Univers 3.125 mg 1- 9100 (1) ity of tablet 00:00: TABLET(S) [place] 00 BY MOUTH Medical TWICE A Branch DAY WITH MEALS. carvediloL 2021-06 Yes [id number] TAKE ONE Univers 3.125 mg 1-03 9100 (1) ity of tablet 00:00: TABLET(S) [place] 00 BY MOUTH Medical TWICE A Branch DAY WITH MEALS. carvediloL 2021-06 Yes [id number] TAKE ONE Univers 3.125 mg 1- 9100 (1) ity of tablet 00:00: TABLET(S) [place] 00 BY MOUTH Medical TWICE A Branch DAY WITH MEALS. carvediloL 2021-06 Yes [id number] TAKE ONE Univers 3.125 mg 1-03 9100 (1) ity of tablet 00:00: TABLET(S) [place] 00 BY MOUTH Medical TWICE A Branch DAY WITH MEALS. carvediloL 2021-06 Yes [id number] TAKE ONE [facility] 3.125 mg - 9100 (1) ity of tablet 00:00: TABLET(S) [place] 00 BY MOUTH Medical TWICE A Branch DAY WITH MEALS. carvediloL 2021-06 Yes [id number] TAKE ONE Univers 3.125 mg 1- 9100 (1) ity of tablet 00:00: TABLET(S) [place] 00 BY MOUTH Medical TWICE A Branch DAY WITH MEALS. carvediloL 2021-06 Yes [id number] TAKE ONE [facility] 3.125 mg 1- 9100 (1) ity of tablet 00:00: TABLET(S) [place] 00 BY MOUTH Medical TWICE A Branch DAY WITH MEALS. carvediloL 2021-06 Yes [id number] TAKE ONE [facility] 3.125 mg - 9100 (1) ity of tablet 00:00: TABLET(S) [place] 00 BY MOUTH Medical TWICE A Branch DAY WITH MEALS. carvediloL 2021-06 Yes [id number] TAKE ONE [facility] 3.125 mg - 9100 (1) ity of tablet 00:00: TABLET(S) [place] 00 BY MOUTH Medical TWICE A Branch DAY WITH MEALS. carvediloL 2021-06 Yes [id number] TAKE ONE [facility] 3.125 mg - 9100 (1) ity of tablet 00:00: TABLET(S) [place] 00 BY MOUTH Medical TWICE A Branch DAY WITH MEALS. carvediloL 2021-06 Yes [id number] TAKE ONE Univers 3.125 mg - 9100 (1) ity of tablet 00:00: TABLET(S) [place] 00 BY MOUTH Medical TWICE A Branch DAY WITH MEALS. carvediloL 2021-06 Yes [id number] TAKE ONE [facility] 3.125 mg 1- 9100 (1) ity of tablet 00:00: TABLET(S) [place] 00 BY MOUTH Medical TWICE A Branch DAY WITH MEALS. carvediloL 2021-06 Yes [id number] TAKE ONE [facility] 3.125 mg 1- 9100 (1) ity of tablet 00:00: TABLET(S) [place] 00 BY MOUTH Medical TWICE A Branch DAY WITH MEALS. carvediloL 2021-06 Yes [id number] TAKE ONE [facility] 3.125 mg 1- 9100 (1) ity of tablet 00:00: TABLET(S) [place] 00 BY MOUTH Medical TWICE A Branch DAY WITH MEALS. carvediloL 2021-06 Yes [id number] TAKE ONE [facility] 3.125 mg 1- 9100 (1) ity of tablet 00:00: TABLET(S) [place] 00 BY MOUTH Medical TWICE A Branch DAY WITH MEALS. carvediloL 2021-06 Yes [id number] TAKE ONE [facility] 3.125 mg 1- 9100 (1) ity of tablet 00:00: TABLET(S) [place] 00 BY MOUTH Medical TWICE A Branch DAY WITH MEALS. carvediloL 2021-06 Yes [id number] TAKE ONE [facility] 3.125 mg - 9100 (1) ity of tablet 00:00: TABLET(S) [place] 00 BY MOUTH Medical TWICE A Branch DAY WITH MEALS. carvediloL 2021-06 Yes [id number] TAKE ONE [facility] 3.125 mg - 9100 (1) ity of tablet 00:00: TABLET(S) [place] 00 BY MOUTH Medical TWICE A Branch DAY WITH MEALS. carvediloL 2021-06 Yes [id number] TAKE ONE [facility] 3.125 mg - 9100 (1) ity of tablet 00:00: TABLET(S) [place] 00 BY MOUTH Medical TWICE A Branch DAY WITH MEALS. carvediloL 2021-06 Yes [id number] TAKE ONE [facility] 3.125 mg 1- 9100 (1) ity of tablet 00:00: TABLET(S) [place] 00 BY MOUTH Medical TWICE A Branch DAY WITH MEALS. carvediloL 2021-06 Yes [id number] TAKE ONE [facility] 3.125 mg 1- 9100 (1) ity of tablet 00:00: TABLET(S) [place] 00 BY MOUTH Medical TWICE A Branch DAY WITH MEALS. carvediloL 2021-06 Yes [id number] TAKE ONE [facility] 3.125 mg - 9100 (1) ity of tablet 00:00: TABLET(S) [place] 00 BY MOUTH Medical TWICE A Branch DAY WITH MEALS. carvediloL 2021-06 Yes [id number] TAKE ONE [facility] 3.125 mg 1-03 9100 (1) ity of tablet 00:00: TABLET(S) [place] 00 BY MOUTH Medical TWICE A Branch DAY WITH MEALS. carvediloL 2021-06 Yes [id number] TAKE ONE [facility] 3.125 mg 1-03 9100 (1) ity of tablet 00:00: TABLET(S) [place] 00 BY MOUTH Medical TWICE A Branch DAY WITH MEALS. carvediloL 2021-06 Yes [id number] TAKE ONE [facility] 3.125 mg 1- 9100 (1) ity of tablet 00:00: TABLET(S) [place] 00 BY MOUTH Medical TWICE A Branch DAY WITH MEALS. carvediloL 2021-06 Yes [id number] TAKE ONE [facility] 3.125 mg 1- 9100 (1) ity of tablet 00:00: TABLET(S) [place] 00 BY MOUTH Medical TWICE A Branch DAY WITH MEALS. carvediloL 2021-06 Yes [id number] TAKE ONE [facility] 3.125 mg 1- 9100 (1) ity of tablet 00:00: TABLET(S) [place] 00 BY MOUTH Medical TWICE A Branch DAY WITH MEALS. carvediloL 2021-06 Yes [id number] TAKE ONE [facility] 3.125 mg 1- 9100 (1) ity of tablet 00:00: TABLET(S) [place] 00 BY MOUTH Medical TWICE A Branch DAY WITH MEALS. carvediloL 2021-06 Yes [id number] TAKE ONE [facility] 3.125 mg - 9100 (1) ity of tablet 00:00: TABLET(S) [place] 00 BY MOUTH Medical TWICE A Branch DAY WITH MEALS. carvediloL 2021-06 Yes [id number] TAKE ONE [facility] 3.125 mg 1- 9100 (1) ity of tablet 00:00: TABLET(S) [place] 00 BY MOUTH Medical TWICE A Branch DAY WITH MEALS. carvediloL 2021-06 Yes [id number] TAKE ONE [facility] 3.125 mg 1-03 9100 (1) ity of tablet 00:00: TABLET(S) [place] 00 BY MOUTH Medical TWICE A Branch DAY WITH MEALS. carvediloL 2021-06 Yes [id number] TAKE ONE [facility] 3.125 mg 1- 9100 (1) ity of tablet 00:00: TABLET(S) [place] 00 BY MOUTH Medical TWICE A Branch DAY WITH MEALS. carvediloL 2021-06 Yes [id number] TAKE ONE [facility] 3.125 mg 1- 9100 (1) ity of tablet 00:00: TABLET(S) [place] 00 BY MOUTH Medical TWICE A Branch DAY WITH MEALS. carvediloL 2021-06 Yes [id number] TAKE ONE [facility] 3.125 mg - 9100 (1) ity of tablet 00:00: TABLET(S) [place] 00 BY MOUTH Medical TWICE A Branch DAY WITH MEALS. carvediloL 2021-06 Yes [id number] TAKE ONE [facility] 3.125 mg 1- 9100 (1) ity of tablet 00:00: TABLET(S) [place] 00 BY MOUTH Medical TWICE A Branch DAY WITH MEALS. carvediloL 2021-06 Yes [id number] TAKE ONE [facility] 3.125 mg - 9100 (1) ity of tablet 00:00: TABLET(S) [place] 00 BY MOUTH Medical TWICE A Branch DAY WITH MEALS. carvediloL 2021-06 Yes [id number] TAKE ONE [facility] 3.125 mg - 9100 (1) ity of tablet 00:00: TABLET(S) [place] 00 BY MOUTH Medical TWICE A Branch DAY WITH MEALS. carvediloL 2021-06 Yes [id number] TAKE ONE [facility] 3.125 mg - 9100 (1) ity of tablet 00:00: TABLET(S) [place] 00 BY MOUTH Medical TWICE A Branch DAY WITH MEALS. carvediloL 2021-06 Yes [id number] TAKE ONE [facility] 3.125 mg - 9100 (1) ity of tablet 00:00: TABLET(S) [place] 00 BY MOUTH Medical TWICE A Branch DAY WITH MEALS. carvediloL 2021-06 Yes [id number] TAKE ONE [facility] 3.125 mg - 9100 (1) ity of tablet 00:00: TABLET(S) [place] 00 BY MOUTH Medical TWICE A Branch DAY WITH MEALS. carvediloL 2021-06 Yes [id number] TAKE ONE [facility] 3.125 mg - 9100 (1) ity of tablet 00:00: TABLET(S) [place] 00 BY MOUTH Medical TWICE A Branch DAY WITH MEALS. carvediloL 2021-06 Yes [id number] TAKE ONE [facility] 3.125 mg 1-03 9100 (1) ity of tablet 00:00: TABLET(S) [place] 00 BY MOUTH Medical TWICE A Branch DAY WITH MEALS. carvediloL 2021-06 Yes [id number] TAKE ONE [facility] 3.125 mg 1- 9100 (1) ity of tablet 00:00: TABLET(S) [place] 00 BY MOUTH Medical TWICE A Branch DAY WITH MEALS. carvediloL 2021-06 Yes [id number] TAKE ONE [facility] 3.125 mg 1- 9100 (1) ity of tablet 00:00: TABLET(S) [place] 00 BY MOUTH Medical TWICE A Branch DAY WITH MEALS. carvediloL 2021-06 Yes [id number] TAKE ONE [facility] 3.125 mg 1- 9100 (1) ity of tablet 00:00: TABLET(S) [place] 00 BY MOUTH Medical TWICE A Branch DAY WITH MEALS. carvediloL 2021-06 Yes [id number] TAKE ONE [facility] 3.125 mg - 9100 (1) ity of tablet 00:00: TABLET(S) [place] 00 BY MOUTH Medical TWICE A Branch DAY WITH MEALS. carvediloL 2021-06 Yes [id number] TAKE ONE [facility] 3.125 mg - 9100 (1) ity of tablet 00:00: TABLET(S) [place] 00 BY MOUTH Medical TWICE A Branch DAY WITH MEALS. carvediloL 2021-06 Yes [id number] TAKE ONE [facility] 3.125 mg - 9100 (1) ity of tablet 00:00: TABLET(S) [place] 00 BY MOUTH Medical TWICE A Branch DAY WITH MEALS. carvediloL 2021-06 Yes [id number] TAKE ONE [facility] 3.125 mg 1- 9100 (1) ity of tablet 00:00: TABLET(S) [place] 00 BY MOUTH Medical TWICE A Branch DAY WITH MEALS. carvediloL 2021-06 Yes [id number] TAKE ONE [facility] 3.125 mg 1- 9100 (1) ity of tablet 00:00: TABLET(S) [place] 00 BY MOUTH Medical TWICE A Branch DAY WITH MEALS. carvediloL 2021-06 Yes [id number] TAKE ONE [facility] 3.125 mg - 9100 (1) ity of tablet 00:00: TABLET(S) [place] 00 BY MOUTH Medical TWICE A Branch DAY WITH MEALS. carvediloL 2021-06 Yes [id number] TAKE ONE [facility] 3.125 mg - 9100 (1) ity of tablet 00:00: TABLET(S) [place] 00 BY MOUTH Medical TWICE A Branch DAY WITH MEALS. carvediloL 2021-06 Yes [id number] TAKE ONE [facility] 3.125 mg - 9100 (1) ity of tablet 00:00: TABLET(S) [place] 00 BY MOUTH Medical TWICE A Branch DAY WITH MEALS. carvediloL 2021-06 Yes [id number] TAKE ONE [facility] 3.125 mg - 9100 (1) ity of tablet 00:00: TABLET(S) [place] 00 BY MOUTH Medical TWICE A Branch DAY WITH MEALS. carvediloL 2021-06 Yes [id number] TAKE ONE [facility] 3.125 mg - 9100 (1) ity of tablet 00:00: TABLET(S) [place] 00 BY MOUTH Medical TWICE A Branch DAY WITH MEALS. carvediloL 2021-06 Yes [id number] TAKE ONE [facility] 3.125 mg - 9100 (1) ity of tablet 00:00: TABLET(S) [place] 00 BY MOUTH Medical TWICE A Branch DAY WITH MEALS. carvediloL 2021-06 Yes [id number] TAKE ONE [facility] 3.125 mg - 9100 (1) ity of tablet 00:00: TABLET(S) [place] 00 BY MOUTH Medical TWICE A Branch DAY WITH MEALS. carvediloL 2021-06 Yes [id number] TAKE ONE [facility] 3.125 mg - 9100 (1) ity of tablet 00:00: TABLET(S) [place] 00 BY MOUTH Medical TWICE A Branch DAY WITH MEALS. carvediloL 2021-06 Yes [id number] TAKE ONE [facility] 3.125 mg - 9100 (1) ity of tablet 00:00: TABLET(S) [place] 00 BY MOUTH Medical TWICE A Branch DAY WITH MEALS. carvediloL 2021-06 Yes [id number] TAKE ONE [facility] 3.125 mg - 9100 (1) ity of tablet 00:00: TABLET(S) [place] 00 BY MOUTH Medical TWICE A Branch DAY WITH MEALS. carvediloL 2021-06 Yes [id number] TAKE ONE [facility] 3.125 mg 1-03 9100 (1) ity of tablet 00:00: TABLET(S) [place] 00 BY MOUTH Medical TWICE A Branch DAY WITH MEALS. carvediloL 2021-06 Yes [id number] TAKE ONE [facility] 3.125 mg 1-03 9100 (1) ity of tablet 00:00: TABLET(S) [place] 00 BY MOUTH Medical TWICE A Branch DAY WITH MEALS. carvediloL 2021-06 Yes [id number] TAKE ONE [facility] 3.125 mg 1- 9100 (1) ity of tablet 00:00: TABLET(S) [place] 00 BY MOUTH Medical TWICE A Branch DAY WITH MEALS. carvediloL 2021-06 Yes [id number] TAKE ONE [facility] 3.125 mg 1- 9100 (1) ity of tablet 00:00: TABLET(S) [place] 00 BY MOUTH Medical TWICE A Branch DAY WITH MEALS. carvediloL 2021-06 Yes [id number] TAKE ONE [facility] 3.125 mg 1- 9100 (1) ity of tablet 00:00: TABLET(S) [place] 00 BY MOUTH Medical TWICE A Branch DAY WITH MEALS. carvediloL 2021-06 Yes [id number] TAKE ONE [facility] 3.125 mg 1- 9100 (1) ity of tablet 00:00: TABLET(S) [place] 00 BY MOUTH Medical TWICE A Branch DAY WITH MEALS. carvediloL 2021-06 Yes [id number] TAKE ONE [facility] 3.125 mg 1- 9100 (1) ity of tablet 00:00: TABLET(S) [place] 00 BY MOUTH Medical TWICE A Branch DAY WITH MEALS. carvediloL 2021-06 Yes [id number] TAKE ONE [facility] 3.125 mg 1-03 9100 (1) ity of tablet 00:00: TABLET(S) [place] 00 BY MOUTH Medical TWICE A Branch DAY WITH MEALS. carvediloL 2021-06 Yes [id number] TAKE ONE [facility] 3.125 mg 1-03 9100 (1) ity of tablet 00:00: TABLET(S) [place] 00 BY MOUTH Medical TWICE A Branch DAY WITH MEALS. carvediloL 2021-06 Yes [id number] TAKE ONE [facility] 3.125 mg 1- 9100 (1) ity of tablet 00:00: TABLET(S) [place] 00 BY MOUTH Medical TWICE A Branch DAY WITH MEALS. carvediloL 2021-06 Yes [id number] TAKE ONE [facility] 3.125 mg 06-23 (1) ity of tablet 00:00: TABLET(S) 00 BY MOUTH Medical TWICE A Branch DAY WITH MEALS. carvediloL 2021-06 Yes [id number] TAKE ONE [facility] 3.125 mg 06-23 (1) ity of tablet 00:00: TABLET(S) [place] 00 BY MOUTH Medical TWICE A Branch DAY WITH MEALS. carvediloL 2021-06 Yes [id number] TAKE ONE [facility] 3.125 mg 06-23 (1) ity of tablet 00:00: TABLET(S) 00 BY MOUTH Medical TWICE A Branch DAY WITH MEALS. carvediloL 2021-06 Yes [id number] TAKE ONE [facility] 3.125 mg 06-23 (1) ity of tablet 00:00: TABLET(S) BY MOUTH Medical TWICE A Branch DAY WITH MEALS. darbepoetin 2021-06- No [id number] 200ug [facility] lashay in 0-04-15 ity of polysorbat 19:30: 18:35 [place] (ARANESP) 00 :00 Medical injection Branch 200 mcg darbepoetin 2021-06- No [id number] 200ug 200 mcg, [facility] lashay in 004-15 Subcutaneo ity o f polysorbat 19:30: 18:35 , ONCE, [place] (ARANESP) 00 :00 1 dose, On Medi juan injection Wed Branch 200 mcg 04/15/22 at 1430, Routine ciprofloxac 2021-06 Yes 500mg Take 1 [facility] vers in HCl 0-26 tablet by ity of (CIPRO) 500 00:00: mouth in [place] mg tablet 00 the Medical morning. Branch ciprofloxac 2021-06 Yes 500mg Take 1 [facility] vers in HCl 0-26 tablet by ity of (CIPRO) 500 00:00: mouth in [place] mg tablet 00 the Medical morning. Branch ciprofloxac 2021-06 Yes 500mg Take 1 [facility] vers in HCl 0-26 tablet by ity of (CIPRO) 500 00:00: mouth in [place] mg tablet 00 the Medical morning. Branch ciprofloxac 2021-06 Yes 500mg Take 1 [facility] vers in HCl 0-26 tablet by ity of (CIPRO) 500 00:00: mouth in [place] mg tablet 00 the Medical morning. Branch ciprofloxac 2021-06 Yes 500mg Take 1 [facility] vers in HCl 0-26 tablet by ity of (CIPRO) 500 00:00: mouth in [place] mg tablet 00 the Medical morning. Branch ciprofloxac 2021-06 Yes 500mg Take 1 [facility] vers in HCl 0-26 tablet by ity of (CIPRO) 500 00:00: mouth in [place] mg tablet 00 the Medical morning. Branch ciprofloxac 2021-06 Yes 500mg Take 1 [facility] vers in HCl 0-26 tablet by ity of (CIPRO) 500 00:00: mouth in [place] mg tablet 00 the Medical morning. Branch ciprofloxac 2021-06 Yes 500mg Take 1 [facility] vers in HCl 0-26 tablet by ity of (CIPRO) 500 00:00: mouth in [place] mg tablet 00 the Medical morning. Branch ciprofloxac 2021-06 Yes 500mg Take 1 [facility] vers in HCl 0-26 tablet by ity of (CIPRO) 500 00:00: mouth in [place] mg tablet 00 the Medical morning. Branch ciprofloxac 2021-06- No 500mg Take 1 [facility] devi in HCl 0-26 11-16 tablet by ity of (CIPRO) 500 00:00: 00:00 mouth in [place] mg tablet 00 :00 the Medical morning. Branch ciprofloxac 2021-06- No 500mg Take 1 Un devi in HCl 0-26 11-16 tablet by ity of (CIPRO) 500 00:00: 00:00 mouth in [place] mg tablet 00 :00 the Medical morning. Branch warfarin 2021-06 Yes Take as Un[facility] s 2.5 mg 0-17 directed ity of tablet 00:00: by [address] based on INR results. warfarin 2021-06 Yes Take as [facility] s 2.5 mg 0-17 directed ity of tablet 00:00: by [address] based on INR results. warfarin 2021-06 Yes Take as [facility] 2.5 mg 0-17 directed ity of tablet 00:00: by [address] based on INR results. warfarin 2021- Yes Take as [facility] s 2.5 mg 0-17 directed ity of tablet 00:00: by [address] based on INR results. warfarin 2021- Yes Take as [facility] 2.5 mg 0-17 directed ity of tablet 00:00: by [address] based on INR results. warfarin 2021- Yes Take as [facility] s 2.5 mg 0-17 directed ity of tablet 00:00: by [address] based on INR results. warfarin 2021-06 Yes Take as [facility] s 2.5 mg 0-17 directed ity of tablet 00:00: by [address] based on INR results. warfarin 2021-06 Yes Take as [facility] s 2.5 mg 0-17 directed ity of tablet 00:00: by [address] based on INR results. warfarin 2021-06 Yes Take as [facility] s 2.5 mg 0-17 directed ity of tablet 00:00: by [address] based on INR results. warfarin 2021- Yes Take as [facility] s 2.5 mg 0-17 directed ity of tablet 00:00: by [address] based on INR results. warfarin 2021- Yes Take as [facility] s 2.5 mg 0-17 directed ity of tablet 00:00: by [address] based on INR results. warfarin 2021- Yes Take as [facility] s 2.5 mg 0-17 directed ity of tablet 00:00: by [address] based on INR results. warfarin 2021- Yes Take as [facility] s 2.5 mg 0-17 directed ity of tablet 00:00: by [address] based on INR results. warfarin 2021- Yes Take as [facility] s 2.5 mg 0-17 directed ity of tablet 00:00: by [address] based on INR results. warfarin 2021- Yes Take as [facility] s 2.5 mg 0-17 directed ity of tablet 00:00: by [address] based on INR results. warfarin 2022-1 Yes Take as [facility] 2.5 mg 0-17 directed ity of tablet 00:00: by [address] based on INR results. warfarin 2022-1 Yes Take as [facility] 2.5 mg 0-17 directed ity of tablet 00:00: by [address] based on INR results. warfarin 2021-1 Yes Take as [facility] 2.5 mg 0-17 directed ity of tablet 00:00: by [address] based on INR results. warfarin 2021-1 Yes Take as [facility] 2.5 mg 0-17 directed ity of tablet 00:00: by [address] based on INR results. warfarin 2021-1 Yes Take as [facility] 2.5 mg 0-17 directed ity of tablet 00:00: by [address] based on INR results. warfarin 2021-1 Yes Take as [facility] 2.5 mg 0-17 directed ity of tablet 00:00: by [address] based on INR results. warfarin 2021-1 Yes Take as [facility] s 2.5 mg 0-17 directed ity of tablet 00:00: by [address] based on INR results. warfarin 2021-1 Yes Take as [facility] 2.5 mg 0-17 directed ity of tablet 00:00: by [address] based on INR results. warfarin 2021-1 Yes Take as [facility] 2.5 mg 0-17 directed ity of tablet 00:00: by [address] based on INR results. warfarin 2-1 Yes Take as [facility] 2.5 mg 0-17 directed ity of tablet 00:00: by [address] based on INR results. warfarin 2022-1 Yes Take as [facility] 2.5 mg 0-17 directed ity of tablet 00:00: by [address] based on INR results. warfarin 2-1 Yes Take as [facility] 2.5 mg 0-17 directed ity of tablet 00:00: by [address] based on INR results. warfarin 2022-1 Yes Take as [facility] s 2.5 mg 0-17 directed ity of tablet 00:00: by [address] based on INR results. warfarin 2021- Yes Take as [facility] 2.5 mg 0-17 directed ity of tablet 00:00: by [address] based on INR results. warfarin 2021- Yes Take as [facility] 2.5 mg 0-17 directed ity of tablet 00:00: by [address] based on INR results. warfarin 2021- Yes Take as [facility] s 2.5 mg 0-17 directed ity of tablet 00:00: by [address] based on INR results. warfarin 2021-06 Yes Take as [facility] s 2.5 mg 0-17 directed ity of tablet 00:00: by [address] based on INR results. warfarin 2021-06 Yes Take as [facility] 2.5 mg 0-17 directed ity of tablet 00:00: by [address] based on INR results. warfarin 2021-06 Yes Take as [facility] 2.5 mg 0-17 directed ity of tablet 00:00: by [address] based on INR results. warfarin 2021- Yes Take as [facility] s 2.5 mg 0-17 directed ity of tablet 00:00: by [address] based on INR results. warfarin 2021- Yes Take as [facility] s 2.5 mg 0-17 directed ity of tablet 00:00: by [address] based on INR results. warfarin 2021- Yes Take as [facility] s 2.5 mg 0-17 directed ity of tablet 00:00: by [address] based on INR results. warfarin 2021- Yes Take as [facility] s 2.5 mg 0-17 directed ity of tablet 00:00: by [address] based on INR results. warfarin 2021- Yes Take as [facility] s 2.5 mg 0-17 directed ity of tablet 00:00: by [address] based on INR results. warfarin 2021- Yes Take as [facility] s 2.5 mg 0-17 directed ity of tablet 00:00: by [address] based on INR results. warfarin 2022-1 Yes Take as [facility] s 2.5 mg 0-17 directed ity of tablet 00:00: by [address] based on INR results. warfarin 2022-1 Yes Take as [facility] s 2.5 mg 0-17 directed ity of tablet 00:00: by [address] based on INR results. warfarin 2021-1 Yes Take as [facility] s 2.5 mg 0-17 directed ity of tablet 00:00: by [address] based on INR results. warfarin 2021-1 Yes Take as [facility] s 2.5 mg 0-17 directed ity of tablet 00:00: by [address] based on INR results. warfarin 2021-1 Yes Take as [facility] s 2.5 mg 0-17 directed ity of tablet 00:00: by [address] based on INR results. warfarin 2021-1 Yes Take as [facility] s 2.5 mg 0-17 directed ity of tablet 00:00: by [address] based on INR results. warfarin 2021-1 Yes Take as [facility] s 2.5 mg 0-17 directed ity of tablet 00:00: by [address] based on INR results. warfarin 2021-1 Yes Take as [facility] s 2.5 mg 0-17 directed ity of tablet 00:00: by [address] based on INR results. warfarin 2021-1 Yes Take as [facility] s 2.5 mg 0-17 directed ity of tablet 00:00: by [address] based on INR results. warfarin 2-1 Yes Take as [facility] s 2.5 mg 0-17 directed ity of tablet 00:00: by [address] based on INR results. warfarin 2022-1 Yes Take as [facility] 2.5 mg 0-17 directed ity of tablet 00:00: by [address] based on INR results. warfarin 2-1 Yes Take as [facility] 2.5 mg 0-17 directed ity of tablet 00:00: by [address] based on INR results. warfarin 2022-1 Yes Take as [facility] s 2.5 mg 0-17 directed ity of tablet 00:00: by [address] based on INR results. warfarin 2021- Yes Take as [facility] s 2.5 mg 0-17 directed ity of tablet 00:00: by [address] based on INR results. warfarin 2021- Yes Take as Un[facility] s 2.5 mg 0-17 directed ity of tablet 00:00: by [address] based on INR results. warfarin 2021- Yes Take as [facility] s 2.5 mg 0-17 directed ity of tablet 00:00: by [address] based on INR results. warfarin 2021-06 Yes Take as [facility] 2.5 mg 0-17 directed ity of tablet 00:00: by [address] based on INR results. warfarin 2021-06 Yes Take as [facility] 2.5 mg 0-17 directed ity of tablet 00:00: by [address] based on INR results. warfarin 2021-06 Yes Take as [facility] 2.5 mg 0-17 directed ity of tablet 00:00: by [address] based on INR results. warfarin 2021- Yes Take as [facility] s 2.5 mg 0-17 directed ity of tablet 00:00: by [address] based on INR results. warfarin 2021- Yes Take as [facility] s 2.5 mg 0-17 directed ity of tablet 00:00: by [address] based on INR results. warfarin 2021- Yes Take as [facility] s 2.5 mg 0-17 directed ity of tablet 00:00: by [address] based on INR results. warfarin 2021- Yes Take as Un[facility] s 2.5 mg 0-17 directed ity of tablet 00:00: by [address] based on INR results. warfarin 2021- Yes Take as [facility] s 2.5 mg 0-17 directed ity of tablet 00:00: by [address] based on INR results. warfarin 2021- Yes Take as [facility] s 2.5 mg 0-17 directed ity of tablet 00:00: by [address] based on INR results. warfarin 2022-1 Yes Take as [facility] s 2.5 mg 0-17 directed ity of tablet 00:00: by [address] based on INR results. warfarin 2022-1 Yes Take as [facility] s 2.5 mg 0-17 directed ity of tablet 00:00: by [address] based on INR results. warfarin 2021-1 Yes Take as [facility] s 2.5 mg 0-17 directed ity of tablet 00:00: by [address] based on INR results. warfarin 2021-1 Yes Take as [facility] s 2.5 mg 0-17 directed ity of tablet 00:00: by [address] based on INR results. warfarin 2021-1 Yes Take as [facility] s 2.5 mg 0-17 directed ity of tablet 00:00: by [address] based on INR results. warfarin 2021-1 Yes Take as [facility] s 2.5 mg 0-17 directed ity of tablet 00:00: by [address] based on INR results. warfarin 2021-1 Yes Take as [facility] s 2.5 mg 0-17 directed ity of tablet 00:00: by [address] based on INR results. warfarin 2021-1 Yes Take as [facility] s 2.5 mg 0-17 directed ity of tablet 00:00: by [address] based on INR results. warfarin 2021-1 Yes Take as [facility] s 2.5 mg 0-17 directed ity of tablet 00:00: by [address] based on INR results. warfarin 2-1 Yes Take as [facility] s 2.5 mg 0-17 directed ity of tablet 00:00: by [address] based on INR results. warfarin 2022-1 Yes Take as [facility] s 2.5 mg 0-17 directed ity of tablet 00:00: by [address] based on INR results. warfarin 2-1 Yes Take as [facility] s 2.5 mg 0-17 directed ity of tablet 00:00: by [address] based on INR results. warfarin 2022-1 Yes Take as [facility] s 2.5 mg 0-17 directed ity of tablet 00:00: by [address] based on INR results. warfarin 2021- Yes Take as [facility] s 2.5 mg 0-17 directed ity of tablet 00:00: by [address] based on INR results. warfarin 2021- Yes Take as [facility] s 2.5 mg 0-17 directed ity of tablet 00:00: by [address] based on INR results. warfarin 2021- Yes Take as [facility] s 2.5 mg 0-17 directed ity of tablet 00:00: by [address] based on INR results. warfarin 2021-06 Yes Take as [facility] s 2.5 mg 0-17 directed ity of tablet 00:00: by [address] based on INR results. warfarin 2021-06 Yes Take as [facility] s 2.5 mg 0-17 directed ity of tablet 00:00: by [address] based on INR results. warfarin 2021-06 Yes Take as [facility] s 2.5 mg 0-17 directed ity of tablet 00:00: by [address] based on INR results. warfarin 2021- Yes Take as [facility] s 2.5 mg 0-17 directed ity of tablet 00:00: by [address] based on INR results. warfarin 2021- Yes Take as [facility] s 2.5 mg 0-17 directed ity of tablet 00:00: by [address] based on INR results. warfarin 2021- Yes Take as [facility] s 2.5 mg 0-17 directed ity of tablet 00:00: by [address] based on INR results. warfarin 2021- Yes Take as [facility] s 2.5 mg 0-17 directed ity of tablet 00:00: by [address] based on INR results. warfarin 2021- Yes Take as [facility] s 2.5 mg 0-17 directed ity of tablet 00:00: by [address] based on INR results. warfarin 2021- Yes Take as [facility] s 2.5 mg 0-17 directed ity of tablet 00:00: by [address] based on INR results. warfarin 2022-1 Yes Take as [facility] s 2.5 mg 0-17 directed ity of tablet 00:00: by [address] based on INR results. warfarin 2022-1 Yes Take as [facility] 2.5 mg 0-17 directed ity of tablet 00:00: by [address] based on INR results. warfarin 2021-1 Yes Take as [facility] 2.5 mg 0-17 directed ity of tablet 00:00: by [address] based on INR results. warfarin 2021-1 Yes Take as [facility] s 2.5 mg 0-17 directed ity of tablet 00:00: by [address] based on INR results. warfarin 2021-1 Yes Take as [facility] s 2.5 mg 0-17 directed ity of tablet 00:00: by [address] based on INR results. warfarin 2021-1 Yes Take as [facility] 2.5 mg 0-17 directed ity of tablet 00:00: by [address] based on INR results. warfarin 2021-1 Yes Take as [facility] 2.5 mg 0-17 directed ity of tablet 00:00: by [address] based on INR results. warfarin 2021-1 Yes Take as [facility] 2.5 mg 0-17 directed ity of tablet 00:00: by [address] based on INR results. warfarin 2021-1 Yes Take as [facility] 2.5 mg 0-17 directed ity of tablet 00:00: by [address] based on INR results. warfarin 2-1 Yes Take as [facility] 2.5 mg 0-17 directed ity of tablet 00:00: by [address] based on INR results. warfarin 2022-1 Yes Take as [facility] 2.5 mg 0-17 directed ity of tablet 00:00: by [address] based on INR results. warfarin 2-1 Yes Take as [facility] 2.5 mg 0-17 directed ity of tablet 00:00: by [address] based on INR results. warfarin 2022-1 Yes Take as [facility] 2.5 mg 0-17 directed ity of tablet 00:00: by [address] based on INR results. warfarin 2021-06 Yes Take as [facility] 2.5 mg 0-17 directed ity of tablet 00:00: by [address] based on INR results. warfarin 2021-06 Yes Take as [facility] 2.5 mg 0-17 directed ity of tablet 00:00: by [address] based on INR results. warfarin 2021-06 Yes Take as [facility] 2.5 mg 0-17 directed ity of tablet 00:00: by [address] based on INR results. warfarin 2021-06 Yes Take as [facility] 2.5 mg 0-17 directed ity of tablet 00:00: by [address] based on INR results. warfarin 2021-06 Yes Take as [facility] 2.5 mg 0-17 directed ity of tablet 00:00: by [address] based on INR results. darbepoetin 2021-06- No [id number] 200ug [facility] in 0-11 03-3101 ity of polysorbat 23:15: 22:18 [place] [facility] 00 :00 Medical injection Branch 200 mcg darbepoetin 2021-06- No [id number] 200ug 200 mcg, [facility] l[place] in 0-03-31 9101 Subcutaneo ity o f polysorbat 23:15: 22:18 , ONCE, [place] (ARANESP) 00 :00 1 dose, On Medi juan injection Tue Branch 200 mcg 03/31/22 at 1815, Routine iron 2021-06- No [id number] 250mg 250 mg, IV U nivers sucrose 0-07 10-07 Infusion, ity of (VENOFER) 16:00: 17:27 ONCE, [place] 250 mg in 00 :00 Administer Medi juan NaCl 0.9% over 1.5 Branch (NS) 250 mL Hours, On infusion 03/27/22 at 1100, For 1 dose sevelamer 2021-06 Yes [id number] 800mg Take 1 [facility] 800 mg 0-06 tablet by ity of tablet 00:00: mouth in [address] and 1 tablet at noon and 1 tablet in the evening. Take with meals. sevelamer 2021-06 Yes [id number] 800mg Take 1 [facility] 800 mg 0-06 tablet by [facility] tablet 00:00: mouth in [address] and 1 tablet at noon and 1 tablet in the evening. Take with meals. sevelamer 2021-06 Yes [id number] 800mg Take 1 [facility] 800 mg 0-06 tablet by [facility] tablet 00:00: mouth in [address] and 1 tablet at noon and 1 tablet in the evening. Take with meals. sevelamer 2021-06 Yes [id number] 800mg Take 1 [facility] 800 mg 0-06 tablet by [facility] tablet 00:00: mouth in [address] and 1 tablet at noon and 1 tablet in the evening. Take with meals. sevelamer 2021-06 Yes [id number] 800mg Take 1 [facility] 800 mg 0-06 tablet by [facility] tablet 00:00: mouth in [address] and 1 tablet at noon and 1 tablet in the evening. Take with meals. sevelamer 2021-06 Yes [id number] 800mg Take 1 [facility] 800 mg 0-06 tablet by [facility] tablet 00:00: mouth in [address] and 1 tablet at noon and 1 tablet in the evening. Take with meals. sevelamer 2021-06 Yes [id number] 800mg Take 1 [facility] 800 mg 0-06 tablet by [facility] tablet 00:00: mouth in [address] and 1 tablet at noon and 1 tablet in the evening. Take with meals. sevelamer 2021-06 Yes [id number] 800mg Take 1 [facility] 800 mg 0-06 tablet by [facility] tablet 00:00: mouth in [address] and 1 tablet at noon and 1 tablet in the evening. Take with meals. sevelamer 2021-06 Yes [id number] 800mg Take 1 [facility] 800 mg 0-06 tablet by [facility] tablet 00:00: mouth in [address] and 1 tablet at noon and 1 tablet in the evening. Take with meals. sevelamer 2021-06 Yes [id number] 800mg Take 1 [facility] 800 mg 0-06 tablet by [facility] tablet 00:00: mouth in [place] [address] the Medical morning [place] and 1 tablet at noon and 1 tablet in the evening. Take with meals. sevelamer 2021-06 Yes [id number] 800mg Take 1 [facility] 800 mg 0-06 tablet by [facility] tablet 00:00: mouth in [place] [address] the Medical morning [place] and 1 tablet at noon and 1 tablet in the evening. Take with meals. sevelamer 2021-06 Yes [id number] 800mg Take 1 [facility] 800 mg 0-06 tablet by [facility] tablet 00:00: mouth in [address] Medical morning [place] and 1 tablet at noon and 1 tablet in the evening. Take with meals. sevelamer 2021-06 Yes [id number] 800mg Take 1 [facility] 800 mg 0-06 tablet by [facility] tablet 00:00: mouth in [address] morning [place] and 1 tablet at noon and 1 tablet in the evening. Take with meals. sevelamer 2021-06 Yes [id number] 800mg Take 1 [facility] 800 mg 0-06 tablet by [facility] tablet 00:00: mouth in [address] morning [place] and 1 tablet at noon and 1 tablet in the evening. Take with meals. sevelamer 2021-06 Yes [id number] 800mg Take 1 [facility] 800 mg 0-06 tablet by [facility] tablet 00:00: mouth in [address] morning [place] and 1 tablet at noon and 1 tablet in the evening. Take with meals. sevelamer 2021-06 Yes [id number] 800mg Take 1 [facility] 800 mg 0-06 tablet by [facility] tablet 00:00: mouth in [address] morning [place] and 1 tablet at noon and 1 tablet in the evening. Take with meals. sevelamer 2021-06 Yes [id number] 800mg Take 1 [facility] 800 mg 0-06 tablet by [facility] tablet 00:00: mouth in [address] morning [place] and 1 tablet at noon and 1 tablet in the evening. Take with meals. sevelamer 2021-06 Yes [id number] 800mg Take 1 [facility] 800 mg 0-06 tablet by [facility] tablet 00:00: mouth in [address] morning [place] and 1 tablet at noon and 1 tablet in the evening. Take with meals. sevelamer 2021-06 Yes [id number] 800mg Take 1 [facility] 800 mg 0-06 tablet by [facility] tablet 00:00: mouth in [place] [address] the Medical morning [place] and 1 tablet at noon and 1 tablet in the evening. Take with meals. sevelamer 2021-06 Yes [id number] 800mg Take 1 [facility] 800 mg 0-06 tablet by [facility] of tablet 00:00: mouth in [place] [address] the [facility] morning [place] and 1 tablet at noon and 1 tablet in the evening. Take with meals. sevelamer 2021-06 Yes [id number] 800mg Take 1 [facility] 800 mg 0-06 tablet by [facility] tablet 00:00: mouth in [place] [address] the [facility] morning [place] and 1 tablet at noon and 1 tablet in the evening. Take with meals. sevelamer 2021-06 Yes [id number] 800mg Take 1 [facility] 800 mg 0-06 tablet by [facility] tablet 00:00: mouth in [address] morning [place] and 1 tablet at noon and 1 tablet in the evening. Take with meals. sevelamer 2021-06 Yes [id number] 800mg Take 1 [facility] 800 mg 0-06 tablet by [facility] tablet 00:00: mouth in [address] morning [place] and 1 tablet at noon and 1 tablet in the evening. Take with meals. sevelamer 2021-06 Yes [id number] 800mg Take 1 [facility] 800 mg 0-06 tablet by [facility] tablet 00:00: mouth in [address] morning [place] and 1 tablet at noon and 1 tablet in the evening. Take with meals. sevelamer 2021-06 Yes [id number] 800mg Take 1 [facility] 800 mg 0-06 tablet by [facility] tablet 00:00: mouth in [address] morning [place] and 1 tablet at noon and 1 tablet in the evening. Take with meals. sevelamer 2021-06 Yes [id number] 800mg Take 1 [facility] 800 mg 0-06 tablet by [facility] tablet 00:00: mouth in [address] morning [place] and 1 tablet at noon and 1 tablet in the evening. Take with meals. sevelamer 2021-06 Yes [id number] 800mg Take 1 [facility] 800 mg 0-06 tablet by [facility] tablet 00:00: mouth in [address] morning [place] and 1 tablet at noon and 1 tablet in the evening. Take with meals. sevelamer 2021-06 Yes [id number] 800mg Take 1 [facility] 800 mg 0-06 tablet by [facility] tablet 00:00: mouth in [address] and 1 tablet at noon and 1 tablet in the evening. Take with meals. sevelamer 2021-06 Yes [id number] 800mg Take 1 [facility] 800 mg 0-06 tablet by [facility] tablet 00:00: mouth in [address] and 1 tablet at noon and 1 tablet in the evening. Take with meals. sevelamer 2021-06 Yes [id number] 800mg Take 1 [facility] 800 mg 0-06 tablet by [facility] tablet 00:00: mouth in [address] morning [place] and 1 tablet at noon and 1 tablet in the evening. Take with meals. sevelamer 2021-06 Yes [id number] 800mg Take 1 [facility] 800 mg 0-06 tablet by [facility] tablet 00:00: mouth in [address] and 1 tablet at noon and 1 tablet in the evening. Take with meals. sevelamer 2021-06 Yes [id number] 800mg Take 1 [facility] 800 mg 0-06 tablet by [facility] tablet 00:00: mouth in [address] and 1 tablet at noon and 1 tablet in the evening. Take with meals. sevelamer 2021-06 Yes [id number] 800mg Take 1 [facility] 800 mg 0-06 tablet by [facility] tablet 00:00: mouth in [address] and 1 tablet at noon and 1 tablet in the evening. Take with meals. sevelamer 2021-06 Yes [id number] 800mg Take 1 [facility] 800 mg 0-06 tablet by [facility] tablet 00:00: mouth in [address] and 1 tablet at noon and 1 tablet in the evening. Take with meals. sevelamer 2021-06 Yes [id number] 800mg Take 1 [facility] 800 mg 0-06 tablet by [facility] tablet 00:00: mouth in [address] and 1 tablet at noon and 1 tablet in the evening. Take with meals. sevelamer 2021-06 Yes [id number] 800mg Take 1 [facility] 800 mg 0-06 tablet by [facility] tablet 00:00: mouth in [address] and 1 tablet at noon and 1 tablet in the evening. Take with meals. sevelamer 2021-06 Yes [id number] 800mg Take 1 [facility] 800 mg 0-06 tablet by [facility] of tablet 00:00: mouth in [place] [address] the [facility] morning [place] and 1 tablet at noon and 1 tablet in the evening. Take with meals. sevelamer 2021-06 Yes [id number] 800mg Take 1 [facility] 800 mg 0-06 tablet by [facility] of tablet 00:00: mouth in [address] morning [place] and 1 tablet at noon and 1 tablet in the evening. Take with meals. sevelamer 2021-06 Yes [id number] 800mg Take 1 [facility] 800 mg 0-06 tablet by [facility] of tablet 00:00: mouth in [address] and 1 tablet at noon and 1 tablet in the evening. Take with meals. sevelamer 2021-06 Yes [id number] 800mg Take 1 [facility] 800 mg 0-06 tablet by [facility] of tablet 00:00: mouth in [address] and 1 tablet at noon and 1 tablet in the evening. Take with meals. sevelamer 2021-06 Yes [id number] 800mg Take 1 [facility] 800 mg 0-06 tablet by [facility] of tablet 00:00: mouth in [address] and 1 tablet at noon and 1 tablet in the evening. Take with meals. sevelamer 2021-06 Yes [id number] 800mg Take 1 [facility] 800 mg 0-06 tablet by [facility] of tablet 00:00: mouth in [address] and 1 tablet at noon and 1 tablet in the evening. Take with meals. sevelamer 2021-06 Yes [id number] 800mg Take 1 [facility] 800 mg 0-06 tablet by [facility] of tablet 00:00: mouth in [address] morning [place] and 1 tablet at noon and 1 tablet in the evening. Take with meals. sevelamer 2021-06 Yes [id number] 800mg Take 1 [facility] 800 mg 0-06 tablet by [facility] of tablet 00:00: mouth in [address] morning [place] and 1 tablet at noon and 1 tablet in the evening. Take with meals. sevelamer 2021-06 Yes [id number] 800mg Take 1 [facility] 800 mg 0-06 tablet by [facility] tablet 00:00: mouth in [place] [address] the Medical morning [place] and 1 tablet at noon and 1 tablet in the evening. Take with meals. sevelamer 2021-06 Yes [id number] 800mg Take 1 [facility] 800 mg 0-06 tablet by [facility] of tablet 00:00: mouth in [place] [address] the [facility] morning [place] and 1 tablet at noon and 1 tablet in the evening. Take with meals. sevelamer 2021-06 Yes [id number] 800mg Take 1 [facility] 800 mg 0-06 tablet by [facility] of tablet 00:00: mouth in [address] morning [place] and 1 tablet at noon and 1 tablet in the evening. Take with meals. sevelamer 2021-06 Yes [id number] 800mg Take 1 [facility] 800 mg 0-06 tablet by [facility] tablet 00:00: mouth in [address] morning [place] and 1 tablet at noon and 1 tablet in the evening. Take with meals. sevelamer 2021-06 Yes [id number] 800mg Take 1 [facility] 800 mg 0-06 tablet by [facility] tablet 00:00: mouth in [address] morning [place] and 1 tablet at noon and 1 tablet in the evening. Take with meals. sevelamer 2021-06 Yes [id number] 800mg Take 1 [facility] 800 mg 0-06 tablet by [facility] of tablet 00:00: mouth in [address] and 1 tablet at noon and 1 tablet in the evening. Take with meals. sevelamer 2021-06 Yes [id number] 800mg Take 1 [facility] 800 mg 0-06 tablet by [facility] of tablet 00:00: mouth in [address] and 1 tablet at noon and 1 tablet in the evening. Take with meals. sevelamer 2021-06 Yes [id number] 800mg Take 1 [facility] 800 mg 0-06 tablet by [facility] of tablet 00:00: mouth in [address] morning [place] and 1 tablet at noon and 1 tablet in the evening. Take with meals. sevelamer 2021-06 Yes [id number] 800mg Take 1 [facility] 800 mg 0-06 tablet by [facility] of tablet 00:00: mouth in [address] morning [place] and 1 tablet at noon and 1 tablet in the evening. Take with meals. sevelamer 2021-06 Yes [id number] 800mg Take 1 [facility] 800 mg 0-06 tablet by [facility] of tablet 00:00: mouth in [place] [address] the Medical morning [place] and 1 tablet at noon and 1 tablet in the evening. Take with meals. sevelamer 2021-06 Yes [id number] 800mg Take 1 [facility] 800 mg 0-06 tablet by [facility] of tablet 00:00: mouth in [place] [address] the [facility] morning [place] and 1 tablet at noon and 1 tablet in the evening. Take with meals. sevelamer 2021-06 Yes [id number] 800mg Take 1 [facility] 800 mg 0-06 tablet by [facility] of tablet 00:00: mouth in [place] [address] the Medical morning [place] and 1 tablet at noon and 1 tablet in the evening. Take with meals. sevelamer 2021-06 Yes [id number] 800mg Take 1 [facility] 800 mg 0-06 tablet by [facility] of tablet 00:00: mouth in [place] [address] the [facility] morning [place] and 1 tablet at noon and 1 tablet in the evening. Take with meals. sevelamer 2021-06 Yes [id number] 800mg Take 1 [facility] 800 mg 0-06 tablet by [facility] of tablet 00:00: mouth in [address] morning [place] and 1 tablet at noon and 1 tablet in the evening. Take with meals. sevelamer 2021-06 Yes [id number] 800mg Take 1 [facility] 800 mg 0-06 tablet by [facility] of tablet 00:00: mouth in [address] morning [place] and 1 tablet at noon and 1 tablet in the evening. Take with meals. sevelamer 2021-06 Yes [id number] 800mg Take 1 [facility] 800 mg 0-06 tablet by [facility] of tablet 00:00: mouth in [address] morning [place] and 1 tablet at noon and 1 tablet in the evening. Take with meals. sevelamer 2021-06 Yes [id number] 800mg Take 1 [facility] 800 mg 0-06 tablet by [facility] of tablet 00:00: mouth in [address] morning [place] and 1 tablet at noon and 1 tablet in the evening. Take with meals. sevelamer 2021-06 Yes [id number] 800mg Take 1 [facility] 800 mg 0-06 tablet by [facility] of tablet 00:00: mouth in [address] morning [place] and 1 tablet at noon and 1 tablet in the evening. Take with meals. sevelamer 2021-06 Yes [id number] 800mg Take 1 [facility] 800 mg 0-06 tablet by [facility] of tablet 00:00: mouth in [place] [address] the [facility] morning [place] and 1 tablet at noon and 1 tablet in the evening. Take with meals. sevelamer 2021-06 Yes [id number] 800mg Take 1 [facility] 800 mg 0-06 tablet by [facility] of tablet 00:00: mouth in [place] [address] the [facility] morning [place] and 1 tablet at noon and 1 tablet in the evening. Take with meals. sevelamer 2021-06 Yes [id number] 800mg Take 1 [facility] 800 mg 0-06 tablet by [facility] of tablet 00:00: mouth in [place] [address] the [facility] morning [place] and 1 tablet at noon and 1 tablet in the evening. Take with meals. sevelamer 2021-06 Yes [id number] 800mg Take 1 [facility] 800 mg 0-06 tablet by [facility] of tablet 00:00: mouth in [address] morning [place] and 1 tablet at noon and 1 tablet in the evening. Take with meals. sevelamer 2021-06 Yes [id number] 800mg Take 1 [facility] 800 mg 0-06 tablet by [facility] of tablet 00:00: mouth in [address] morning [place] and 1 tablet at noon and 1 tablet in the evening. Take with meals. sevelamer 2021-06 Yes [id number] 800mg Take 1 [facility] 800 mg 0-06 tablet by [facility] of tablet 00:00: mouth in [address] morning [place] and 1 tablet at noon and 1 tablet in the evening. Take with meals. sevelamer 2021-06 Yes [id number] 800mg Take 1 [facility] 800 mg 0-06 tablet by [facility] of tablet 00:00: mouth in [address] morning [place] and 1 tablet at noon and 1 tablet in the evening. Take with meals. sevelamer 2021-06 Yes [id number] 800mg Take 1 [facility] 800 mg 0-06 tablet by [facility] of tablet 00:00: mouth in [address] morning [place] and 1 tablet at noon and 1 tablet in the evening. Take with meals. sevelamer 2021-06 Yes [id number] 800mg Take 1 [facility] 800 mg 0-06 tablet by [facility] of tablet 00:00: mouth in [address] morning [place] and 1 tablet at noon and 1 tablet in the evening. Take with meals. sevelamer 2021-06 Yes [id number] 800mg Take 1 [facility] 800 mg 0-06 tablet by [facility] of tablet 00:00: mouth in [place] [address] the [facility] morning [place] and 1 tablet at noon and 1 tablet in the evening. Take with meals. sevelamer 2021-06 Yes [id number] 800mg Take 1 [facility] 800 mg 0-06 tablet by [facility] of tablet 00:00: mouth in [address] morning [place] and 1 tablet at noon and 1 tablet in the evening. Take with meals. sevelamer 2021-06 Yes [id number] 800mg Take 1 [facility] 800 mg 0-06 tablet by [facility] of tablet 00:00: mouth in [address] morning [place] and 1 tablet at noon and 1 tablet in the evening. Take with meals. sevelamer 2021-06 Yes [id number] 800mg Take 1 [facility] 800 mg 0-06 tablet by [facility] of tablet 00:00: mouth in [address] and 1 tablet at noon and 1 tablet in the evening. Take with meals. sevelamer 2021-06 Yes [id number] 800mg Take 1 [facility] 800 mg 0-06 tablet by [facility] of tablet 00:00: mouth in [address] morning [place] and 1 tablet at noon and 1 tablet in the evening. Take with meals. sevelamer 2021-06 Yes [id number] 800mg Take 1 [facility] 800 mg 0-06 tablet by [facility] of tablet 00:00: mouth in [address] and 1 tablet at noon and 1 tablet in the evening. Take with meals. sevelamer 2021-06 Yes [id number] 800mg Take 1 [facility] 800 mg 0-06 tablet by [facility] of tablet 00:00: mouth in [address] morning [place] and 1 tablet at noon and 1 tablet in the evening. Take with meals. sevelamer 2021-06 Yes [id number] 800mg Take 1 [facility] 800 mg 0-06 tablet by [facility] of tablet 00:00: mouth in [address] morning [place] and 1 tablet at noon and 1 tablet in the evening. Take with meals. sevelamer 2021-06 Yes [id number] 800mg Take 1 [facility] 800 mg 0-06 tablet by [facility] of tablet 00:00: mouth in [address] morning [place] and 1 tablet at noon and 1 tablet in the evening. Take with meals. sevelamer 2021-06 Yes [id number] 800mg Take 1 [facility] 800 mg 0-06 tablet by [facility] of tablet 00:00: mouth in [address] morning [place] and 1 tablet at noon and 1 tablet in the evening. Take with meals. sevelamer 2021-06 Yes [id number] 800mg Take 1 [facility] 800 mg 0-06 tablet by [facility] of tablet 00:00: mouth in [address] morning [place] and 1 tablet at noon and 1 tablet in the evening. Take with meals. sevelamer 2021-06 Yes [id number] 800mg Take 1 [facility] 800 mg 0-06 tablet by [facility] of tablet 00:00: mouth in [address] morning [place] and 1 tablet at noon and 1 tablet in the evening. Take with meals. sevelamer 2021-06 Yes [id number] 800mg Take 1 [facility] 800 mg 0-06 tablet by [facility] of tablet 00:00: mouth in [address] and 1 tablet at noon and 1 tablet in the evening. Take with meals. sevelamer 2021-06 Yes [id number] 800mg Take 1 [facility] 800 mg 0-06 tablet by [facility] of tablet 00:00: mouth in [address] and 1 tablet at noon and 1 tablet in the evening. Take with meals. sevelamer 2021-06 Yes [id number] 800mg Take 1 [facility] 800 mg 0-06 tablet by [facility] of tablet 00:00: mouth in [address] and 1 tablet at noon and 1 tablet in the evening. Take with meals. sevelamer 2021-06 Yes [id number] 800mg Take 1 [facility] 800 mg 0-06 tablet by [facility] of tablet 00:00: mouth in [address] morning [place] and 1 tablet at noon and 1 tablet in the evening. Take with meals. sevelamer 2021-06 Yes [id number] 800mg Take 1 [facility] 800 mg 0-06 tablet by [facility] of tablet 00:00: mouth in [address] and 1 tablet at noon and 1 tablet in the evening. Take with meals. sevelamer 2021-06 Yes [id number] 800mg Take 1 [facility] 800 mg 0-06 tablet by [facility] of tablet 00:00: mouth in [place] [address] the Medical morning [facility] and 1 tablet at noon and 1 tablet in the evening. Take with meals. sevelamer 2021-06 Yes [id number] 800mg Take 1 [facility] 800 mg 0-06 tablet by [facility] of tablet 00:00: mouth in [place] [address] the Medical morning [facility] and 1 tablet at noon and 1 tablet in the evening. Take with meals. sevelamer 2021-06 Yes [id number] 800mg Take 1 [facility] 800 mg 0-06 tablet by [facility] of tablet 00:00: mouth in [place] [address] the Medical morning [place] and 1 tablet at noon and 1 tablet in the evening. Take with meals. sevelamer 2021-06 Yes [id number] 800mg Take 1 [facility] 800 mg 0-06 tablet by [facility] of tablet 00:00: mouth in [address] morning [place] and 1 tablet at noon and 1 tablet in the evening. Take with meals. sevelamer 2021-06 Yes [id number] 800mg Take 1 [facility] 800 mg 0-06 tablet by [facility] of tablet 00:00: mouth in [address] morning [place] and 1 tablet at noon and 1 tablet in the evening. Take with meals. sevelamer 2021-06 Yes [id number] 800mg Take 1 [facility] 800 mg 0-06 tablet by [facility] of tablet 00:00: mouth in [place] [address] the [facility] morning [place] and 1 tablet at noon and 1 tablet in the evening. Take with meals. sevelamer 2021-06 Yes [id number] 800mg Take 1 [facility] 800 mg 0-06 tablet by [facility] of tablet 00:00: mouth in [address] morning [place] and 1 tablet at noon and 1 tablet in the evening. Take with meals. sevelamer 2021-06 Yes [id number] 800mg Take 1 [facility] 800 mg 0-06 tablet by [facility] of tablet 00:00: mouth in [address] morning [place] and 1 tablet at noon and 1 tablet in the evening. Take with meals. sevelamer 2021-06 Yes [id number] 800mg Take 1 [facility] 800 mg 0-06 tablet by [facility] of tablet 00:00: mouth in [address] morning [place] and 1 tablet at noon and 1 tablet in the evening. Take with meals. sevelamer 2021-06 Yes [id number] 800mg Take 1 [facility] 800 mg 0-06 tablet by [facility] of tablet 00:00: mouth in [place] [address] the Medical morning [facility] and 1 tablet at noon and 1 tablet in the evening. Take with meals. sevelamer 2021-06 Yes [id number] 800mg Take 1 [facility] 800 mg 0-06 tablet by [facility] of tablet 00:00: mouth in [place] [address] the [facility] morning [place] and 1 tablet at noon and 1 tablet in the evening. Take with meals. sevelamer 2021-06 Yes [id number] 800mg Take 1 [facility] 800 mg 0-06 tablet by [facility] of tablet 00:00: mouth in [place] [address] the Medical morning [place] and 1 tablet at noon and 1 tablet in the evening. Take with meals. sevelamer 2021-06 Yes [id number] 800mg Take 1 [facility] 800 mg 0-06 tablet by [facility] of tablet 00:00: mouth in [address] morning [place] and 1 tablet at noon and 1 tablet in the evening. Take with meals. sevelamer 2021-06 Yes [id number] 800mg Take 1 [facility] 800 mg 0-06 tablet by [facility] of tablet 00:00: mouth in [place] [address] the [facility] morning [place] and 1 tablet at noon and 1 tablet in the evening. Take with meals. sevelamer 2021-06 Yes [id number] 800mg Take 1 [facility] 800 mg 0-06 tablet by [facility] of tablet 00:00: mouth in [place] [address] the [facility] morning [place] and 1 tablet at noon and 1 tablet in the evening. Take with meals. sevelamer 2021-06 Yes [id number] 800mg Take 1 [facility] 800 mg 0-06 tablet by [facility] of tablet 00:00: mouth in [address] morning [place] and 1 tablet at noon and 1 tablet in the evening. Take with meals. sevelamer 2021-06 Yes [id number] 800mg Take 1 [facility] 800 mg 0-06 tablet by [facility] of tablet 00:00: mouth in [address] morning [place] and 1 tablet at noon and 1 tablet in the evening. Take with meals. sevelamer 2021-06 Yes [id number] 800mg Take 1 [facility] 800 mg 0-06 tablet by [facility] of tablet 00:00: mouth in [address] morning [place] and 1 tablet at noon and 1 tablet in the evening. Take with meals. sevelamer 2021-06 Yes [id number] 800mg Take 1 [facility] 800 mg 0-06 tablet by [facility] of tablet 00:00: mouth in [place] [address] the [facility] morning [place] and 1 tablet at noon and 1 tablet in the evening. Take with meals. sevelamer 2021-06 Yes [id number] 800mg Take 1 [facility] 800 mg 0-06 tablet by [facility] of tablet 00:00: mouth in [address] morning [place] and 1 tablet at noon and 1 tablet in the evening. Take with meals. sevelamer 2021-06 Yes [id number] 800mg Take 1 [facility] 800 mg 0-06 tablet by [facility] of tablet 00:00: mouth in [address] and 1 tablet at noon and 1 tablet in the evening. Take with meals. sevelamer 2021-06 Yes [id number] 800mg Take 1 [facility] 800 mg 0-06 tablet by [facility] of tablet 00:00: mouth in [address] and 1 tablet at noon and 1 tablet in the evening. Take with meals. sevelamer 2021-06 Yes [id number] 800mg Take 1 [facility] 800 mg 0-06 tablet by [facility] of tablet 00:00: mouth in [address] and 1 tablet at noon and 1 tablet in the evening. Take with meals. sevelamer 2021-06 Yes [id number] 800mg Take 1 [facility] 800 mg 0-06 tablet by [facility] of tablet 00:00: mouth in [address] and 1 tablet at noon and 1 tablet in the evening. Take with meals. sevelamer 2021-06 Yes [id number] 800mg Take 1 [facility] 800 mg 0-06 tablet by [facility] of tablet 00:00: mouth in [address] and 1 tablet at noon and 1 tablet in the evening. Take with meals. cefdinir 2021-1 Yes [id number] 300mg Take 1 [facility] 300 mg 0-04 capsule by [facility] of capsule 00:00: mouth in [place] [address] the morning. Branch cefdinir 2021- Yes [id number] 300mg Take 1 [facility] 300 mg 0-04 capsule by [facility] of capsule 00:00: mouth in [place] [address] the . Branch cefdinir 2021- Yes [id number] 300mg Take 1 [facility] 300 mg 0-04 capsule by [facility] capsule 00:00: mouth in [place] 00 the Medical morning. Branch cefdinir 2021-06 Yes [id number] 300mg Take 1 [facility] 300 mg 0-04 capsule by [facility] of capsule 00:00: mouth in [place] 00 the Medical morning. Branch cefdinir 2021-06 Yes [id number] 300mg Take 1 [facility] 300 mg 0-04 capsule by [facility] of capsule 00:00: mouth in [place] 00 the Medical morning. Branch cefdinir 2021-06 Yes [id number] 300mg Take 1 [facility] 300 mg 0-04 capsule by [facility] of capsule 00:00: mouth in [place] 00 the Medical morning. Branch cefdinir 2021-06 Yes [id number] 300mg Take 1 [facility] 300 mg 0-04 capsule by [facility] of capsule 00:00: mouth in [place] the Medical morning. Branch cefdinir 2021-06 Yes [id number] 300mg Take 1 [facility] 300 mg 0-04 capsule by [facility] of capsule 00:00: mouth in [place] the Medical morning. Branch cefdinir 2021-06 Yes [id number] 300mg Take 1 [facility] 300 mg 0-04 capsule by [facility] of capsule 00:00: mouth in [place] the Medical morning. Branch cefdinir 2021-06 Yes [id number] 300mg Take 1 [facility] 300 mg 0-04 capsule by [facility] of capsule 00:00: mouth in [place] the Medical morning. Branch cefdinir 2021-06 Yes [id number] 300mg Take 1 [facility] 300 mg 0-04 capsule by [facility] of capsule 00:00: mouth in [place] the Medical morning. Branch cefdinir 2021- Yes [id number] 300mg Take 1 [facility] 300 mg 0-04 capsule by [facility] of capsule 00:00: mouth in [place] 00 the Medical morning. Branch cefdinir 2021- Yes [id number] 300mg Take 1 [facility] 300 mg 0-04 capsule by [facility] of capsule 00:00: mouth in [place] 00 the Medical morning. Branch cefdinir 2021- Yes [id number] 300mg Take 1 [facility] 300 mg 0-04 capsule by [facility] of capsule 00:00: mouth in [place] 00 the Medical morning. Branch cefdinir 2021-06 Yes [id number] 300mg Take 1 [facility] 300 mg 0-04 capsule by [facility] of capsule 00:00: mouth in [place] 00 the Medical morning. Branch cefdinir 2021-06 Yes [id number] 300mg Take 1 [facility] 300 mg 0-04 capsule by [facility] of capsule 00:00: mouth in [place] 00 the Medical morning. Branch cefdinir 2021-06 Yes [id number] 300mg Take 1 [facility] 300 mg 0-04 capsule by [facility] of capsule 00:00: mouth in [place] 00 the Medical morning. Branch cefdinir 2021-06 Yes [id number] 300mg Take 1 [facility] 300 mg 0-04 capsule by [facility] of capsule 00:00: mouth in [place] the Medical morning. Branch cefdinir 2021-06 Yes [id number] 300mg Take 1 [facility] 300 mg 0-04 capsule by [facility] of capsule 00:00: mouth in [place] the Medical morning. Branch cefdinir 2021- Yes [id number] 300mg Take 1 [facility] 300 mg 0-04 capsule by [facility] of capsule 00:00: mouth in [place] the Medical morning. Branch cefdinir 2021-06 Yes [id number] 300mg Take 1 [facility] 300 mg 0-04 capsule by [facility] of capsule 00:00: mouth in [place] the Medical morning. Branch cefdinir 2021-06 Yes [id number] 300mg Take 1 [facility] 300 mg 0-04 capsule by [facility] of capsule 00:00: mouth in [place] the Medical morning. Branch cefdinir 2021- Yes [id number] 300mg Take 1 [facility] 300 mg 0-04 capsule by [facility] of capsule 00:00: mouth in [place] the Medical morning. Branch cefdinir 2021- Yes [id number] 300mg Take 1 [facility] 300 mg 0-04 capsule by [facility] of capsule 00:00: mouth in [place] 00 the Medical morning. Branch cefdinir 2021- Yes [id number] 300mg Take 1 [facility] 300 mg 0-04 capsule by [facility] of capsule 00:00: mouth in [place] 00 the Medical morning. Branch cefdinir 2021- Yes [id number] 300mg Take 1 [facility] 300 mg 0-04 capsule by [facility] of capsule 00:00: mouth in [place] 00 the Medical morning. Branch cefdinir 2021-06 Yes [id number] 300mg Take 1 [facility] 300 mg 0-04 capsule by [facility] of capsule 00:00: mouth in [place] 00 the Medical morning. Branch cefdinir 2021-06 Yes [id number] 300mg Take 1 [facility] 300 mg 0-04 capsule by [facility] of capsule 00:00: mouth in [place] 00 the Medical morning. Branch cefdinir 2021-06 Yes [id number] 300mg Take 1 [facility] 300 mg 0-04 capsule by [facility] of capsule 00:00: mouth in [place] 00 the Medical morning. Branch cefdinir 2021-06 Yes [id number] 300mg Take 1 [facility] 300 mg 0-04 capsule by [facility] of capsule 00:00: mouth in [place] 00 the Medical morning. Branch cefdinir 2021-06 Yes [id number] 300mg Take 1 [facility] 300 mg 0-04 capsule by [facility] of capsule 00:00: mouth in [place] 00 the Medical morning. Branch cefdinir 2021-06 Yes [id number] 300mg Take 1 [facility] 300 mg 0-04 capsule by [facility] of capsule 00:00: mouth in [place] the Medical morning. Branch cefdinir 2021-06 Yes [id number] 300mg Take 1 [facility] 300 mg 0-04 capsule by [facility] of capsule 00:00: mouth in [place] 00 the Medical morning. Branch cefdinir 2021-06 Yes [id number] 300mg Take 1 [facility] 300 mg 0-04 capsule by [facility] of capsule 00:00: mouth in [place] 00 the Medical morning. Branch cefdinir 2021-06 Yes [id number] 300mg Take 1 [facility] 300 mg 0-04 capsule by [facility] of capsule 00:00: mouth in [place] 00 the Medical morning. Branch cefdinir 2021-06- No [id number] 300mg Take 1 [facility] 300 mg 0-04 12-01 capsule by [facility] of capsule 00:00: 00:00 mouth in [place] 00 :00 the Medical morning. Branch cefdinir 2021-06- No [id number] 300mg Take 1 [facility] 300 mg 0-04 12-01 capsule by [facility] of capsule 00:00: 00:00 mouth in [place] 00 :00 the Medical morning. Branch cefdinir 2021-06- No [id number] 300mg Take 1 [facility] 300 mg 005-21 capsule by [facility] of capsule 00:00: 00:00 mouth in [place] 00 :00 the Medical morning. Branch cefdinir 2021-06- No [id number] 300mg Take 1 [facility] 300 mg 0-05-21 capsule by [facility] of capsule 00:00: 00:00 mouth in [place] 00 :00 the Medical morning. Branch cefdinir 2021-06- No [id number] 300mg Take 1 [facility] 300 mg 005-21 capsule by [facility] of capsule 00:00: 00:00 mouth in [place] 00 :00 the Medical morning. Branch cefdinir 2021-06- No [id number] 300mg Take 1 [facility] 300 mg 0-05-21 capsule by [facility] of capsule 00:00: 00:00 mouth in [place] 00 :00 the Medical morning. Branch iron 2021- No [id number] 250mg 250 mg, IV U nivers sucrose 03-20 Infusion, ity of (VENOFER) 14:28: 17:06 ONCE, [place] 250 mg in 00 :00 Administer Medi juan NaCl 0.9% over 1.5 Branch (NS) 250 mL Hours, On infusion Wed03/20/22 at 0930, For 1 dose iron 2021- No [id number] 250mg 250 mg, IV U nivers sucrose 03-20 Infusion, ity of (VENOFER) 14:28: 17:06 ONCE, [place] 250 mg in 00 :00 Administer Medi juan NaCl 0.9% over 1.5 Branch (NS) 250 mL Hours, On infusion Wed03/20/22 at 0930, For 1 dose darbepoetin 2021- No [id number] 200ug [facility] in 03-17 ity of polysorbat 16:30: 15:36 [place] (ARANESP) 00 :00 Medical injection Branch 200 mcg darbepoetin 2021- No [id number] 200ug 200 mcg, [facility] lashay in 03-17 Subcutaneo ity o f polysorbat 16:30: 15:36 , ONCE, [place] (ARANESP) 00 :00 1 dose, On Medi juan injection Tue Branch 200 mcg 03/17/22 at 1130, Routine iron 2021- No [id number] 250mg 250 mg, IV U nivers sucrose 03-13 Infusion, ity of (VENOFER) 14:45: 15:56 ONCE, [place] 250 mg in 00 :00 Administer Medi juan NaCl 0.9% over 1.5 Branch (NS) 250 mL Hours, On infusion 03/13/22 at 0945, For 1 dose bumetanide 0 Yes [id number] Take 1 [facility] n[facility] 2 mg tablet 9-20 tablet by ity of 00:00: mouth [place] 00 every Medical morning Branch AND 0.5 tablets every evening. bumetanide 0 Yes [id number] Take 1 [facility] 2 mg tablet 9-20 tablet by ity of 00:00: mouth [place] 00 every Medical morning Branch AND 0.5 tablets every evening. bumetanide 0 Yes [id number] Take 1 [facility] 2 mg tablet 9-20 tablet by [facility]y of 00:00: mouth [place] 00 every Medical morning Branch AND 0.5 tablets every evening. bumetanide 0 Yes [id number] Take 1 [facility] 2 mg tablet 9-20 tablet by [facility]y of 00:00: mouth [place] 00 every Medical morning Branch AND 0.5 tablets every evening. bumetanide 0 Yes [id number] Take 1 [facility] 2 mg tablet 9-20 tablet by ity of 00:00: mouth [place] 00 every Medical morning Branch AND 0.5 tablets every evening. bumetanide 0 Yes [id number] Take 1 [facility] 2 mg tablet 9-20 tablet by ity of 00:00: mouth [place] 00 every Medical morning Branch AND 0.5 tablets every evening. bumetanide 0 Yes [id number] Take 1 [facility] 2 mg tablet 9-20 tablet by [facility]y of 00:00: mouth [place] 00 every Medical morning Branch AND 0.5 tablets every evening. bumetanide 0 Yes [id number] Take 1 [facility] 2 mg tablet 9-20 tablet by [facility]y of 00:00: mouth [place] 00 every Medical morning Branch AND 0.5 tablets every evening. bumetanide 2022-0 Yes [id number] Take 1 [facility] 2 mg tablet 9-20 tablet by ity of 00:00: mouth [place] 00 every Medical morning Branch AND 0.5 tablets every evening. bumetanide 0 Yes [id number] Take 1 [facility] 2 mg tablet 9-20 tablet by ity of 00:00: mouth [place] 00 every Medical morning Branch AND 0.5 tablets every evening. bumetanide 0 Yes [id number] Take 1 [facility] 2 mg tablet 9-20 tablet by ity of 00:00: mouth [place] 00 every Medical morning Branch AND 0.5 tablets every evening. bumetanide 0 Yes [id number] Take 1 [facility] 2 mg tablet 9-20 tablet by ity of 00:00: mouth [place] 00 every Medical morning Branch AND 0.5 tablets every evening. bumetanide 0 Yes [id number] Take 1 [facility] 2 mg tablet 9-20 tablet by ity of 00:00: mouth [place] 00 every Medical morning Branch AND 0.5 tablets every evening. bumetanide 0 Yes [id number] Take 1 [facility] 2 mg tablet 9-20 tablet by ity of 00:00: mouth [place] 00 every Medical morning Branch AND 0.5 tablets every evening. bumetanide 0 Yes [id number] Take 1 [facility] 2 mg tablet 9-20 tablet by ity of 00:00: mouth [place] 00 every Medical morning Branch AND 0.5 tablets every evening. bumetanide 0 Yes [id number] Take 1 [facility] 2 mg tablet 9-20 tablet by ity of 00:00: mouth [place] 00 every Medical morning Branch AND 0.5 tablets every evening. bumetanide 0 Yes [id number] Take 1 [facility] 2 mg tablet 9-20 tablet by ity of 00:00: mouth [place] 00 every Medical morning Branch AND 0.5 tablets every evening. bumetanide 0 Yes [id number] Take 1 [facility] 2 mg tablet 9-20 tablet by ity of 00:00: mouth [place] 00 every Medical morning Branch AND 0.5 tablets every evening. bumetanide 0 Yes [id number] Take 1 [facility] 2 mg tablet 9-20 tablet by ity of 00:00: mouth [place] 00 every Medical morning Branch AND 0.5 tablets every evening. bumetanide 2021-0 Yes [id number] Take 1 [facility] 2 mg tablet 9-20 tablet by ity of 00:00: mouth [place] 00 every Medical morning Branch AND 0.5 tablets every evening. bumetanide 2021-0 Yes [id number] Take 1 [facility] 2 mg tablet 9-20 tablet by ity of 00:00: mouth [place] 00 every Medical morning Branch AND 0.5 tablets every evening. bumetanide 2021-0 Yes [id number] Take 1 [facility] 2 mg tablet 9-20 tablet by ity of 00:00: mouth [place] 00 every Medical morning Branch AND 0.5 tablets every evening. bumetanide 0 Yes [id number] Take 1 [facility] 2 mg tablet 9-20 tablet by ity of 00:00: mouth [place] 00 every Medical morning Branch AND 0.5 tablets every evening. bumetanide 2021-0 Yes [id number] Take 1 [facility] 2 mg tablet 9-20 tablet by ity of 00:00: mouth [place] 00 every Medical morning Branch AND 0.5 tablets every evening. bumetanide 0 Yes [id number] Take 1 [facility] 2 mg tablet 9-20 tablet by ity of 00:00: mouth [place] 00 every Medical morning Branch AND 0.5 tablets every evening. bumetanide 2021-0 Yes [id number] Take 1 [facility] 2 mg tablet 9-20 tablet by ity of 00:00: mouth [place] 00 every Medical morning Branch AND 0.5 tablets every evening. bumetanide 2021-0 Yes [id number] Take 1 [facility] 2 mg tablet 9-20 tablet by ity of 00:00: mouth [place] 00 every Medical morning Branch AND 0.5 tablets every evening. bumetanide 0 Yes [id number] Take 1 [facility] 2 mg tablet 9-20 tablet by ity of 00:00: mouth [place] 00 every Medical morning Branch AND 0.5 tablets every evening. bumetanide 2021-0 Yes [id number] Take 1 [facility] 2 mg tablet 9-20 tablet by ity of 00:00: mouth [place] 00 every Medical morning Branch AND 0.5 tablets every evening. bumetanide 2021-0 Yes [id number] Take 1 [facility] 2 mg tablet 9-20 tablet by ity of 00:00: mouth [place] 00 every Medical morning Branch AND 0.5 tablets every evening. bumetanide 0 Yes [id number] Take 1 [facility] 2 mg tablet 9-20 tablet by ity of 00:00: mouth [place] 00 every Medical morning Branch AND 0.5 tablets every evening. bumetanide 0 Yes [id number] Take 1 [facility] 2 mg tablet 9-20 tablet by ity of 00:00: mouth [place] 00 every Medical morning Branch AND 0.5 tablets every evening. bumetanide 0 Yes [id number] Take 1 [facility] 2 mg tablet 9-20 tablet by ity of 00:00: mouth [place] 00 every Medical morning Branch AND 0.5 tablets every evening. bumetanide 0 Yes [id number] Take 1 [facility] 2 mg tablet 9-20 tablet by ity of 00:00: mouth [place] 00 every Medical morning Branch AND 0.5 tablets every evening. bumetanide 0 Yes [id number] Take 1 [facility] 2 mg tablet 9-20 tablet by ity of 00:00: mouth [place] 00 every Medical morning Branch AND 0.5 tablets every evening. bumetanide 0 Yes [id number] Take 1 [facility] 2 mg tablet 9-20 tablet by ity of 00:00: mouth [place] 00 every Medical morning Branch AND 0.5 tablets every evening. bumetanide 0 Yes [id number] Take 1 [facility] 2 mg tablet 9-20 tablet by ity of 00:00: mouth [place] 00 every Medical morning Branch AND 0.5 tablets every evening. bumetanide 0 Yes [id number] Take 1 [facility] 2 mg tablet 9-20 tablet by ity of 00:00: mouth [place] 00 every Medical morning Branch AND 0.5 tablets every evening. bumetanide 0 Yes [id number] Take 1 [facility] 2 mg tablet 9-20 tablet by ity of 00:00: mouth [place] 00 every Medical morning Branch AND 0.5 tablets every evening. bumetanide 0 Yes [id number] Take 1 [facility] 2 mg tablet 9-20 tablet by ity of 00:00: mouth [place] 00 every Medical morning Branch AND 0.5 tablets every evening. bumetanide 2021-0 Yes [id number] Take 1 [facility] 2 mg tablet 9-20 tablet by [facility]y of 00:00: mouth [place] 00 every Medical morning Branch AND 0.5 tablets every evening. bumetanide 2021-0 Yes [id number] Take 1 [facility] 2 mg tablet 9-20 tablet by [facility]y of 00:00: mouth [place] 00 every Medical morning Branch AND 0.5 tablets every evening. bumetanide 2021-0 Yes [id number] Take 1 [facility] 2 mg tablet 9-20 tablet by ity of 00:00: mouth [place] 00 every Medical morning Branch AND 0.5 tablets every evening. bumetanide 2021-0 Yes [id number] Take 1 [facility] 2 mg tablet 9-20 tablet by [facility]y of 00:00: mouth [place] 00 every Medical morning Branch AND 0.5 tablets every evening. bumetanide 2021-0 Yes [id number] Take 1 [facility] 2 mg tablet 9-20 tablet by ity of 00:00: mouth [place] 00 every Medical morning Branch AND 0.5 tablets every evening. bumetanide 0 Yes [id number] Take 1 [facility] 2 mg tablet 9-20 tablet by ity of 00:00: mouth [place] 00 every Medical morning Branch AND 0.5 tablets every evening. bumetanide 2021-0 Yes [id number] Take 1 [facility] 2 mg tablet 9-20 tablet by ity of 00:00: mouth [place] 00 every Medical morning Branch AND 0.5 tablets every evening. bumetanide 2021-0 Yes [id number] Take 1 [facility] 2 mg tablet 9-20 tablet by ity of 00:00: mouth [place] 00 every Medical morning Branch AND 0.5 tablets every evening. bumetanide 2021-0 Yes [id number] Take 1 [facility] 2 mg tablet 9-20 tablet by ity of 00:00: mouth [place] 00 every Medical morning Branch AND 0.5 tablets every evening. bumetanide 2021-0 Yes [id number] Take 1 [facility] 2 mg tablet 9-20 tablet by ity of 00:00: mouth [place] 00 every Medical morning Branch AND 0.5 tablets every evening. bumetanide 0 Yes [id number] Take 1 [facility] 2 mg tablet 9-20 tablet by ity of 00:00: mouth [place] 00 every Medical morning Branch AND 0.5 tablets every evening. bumetanide 0 Yes [id number] Take 1 [facility] 2 mg tablet 9-20 tablet by ity of 00:00: mouth [place] 00 every Medical morning Branch AND 0.5 tablets every evening. bumetanide 0 Yes [id number] Take 1 [facility] 2 mg tablet 9-20 tablet by ity of 00:00: mouth [place] 00 every Medical morning Branch AND 0.5 tablets every evening. bumetanide 0 Yes [id number] Take 1 [facility] 2 mg tablet 9-20 tablet by ity of 00:00: mouth [place] 00 every Medical morning Branch AND 0.5 tablets every evening. bumetanide 0 Yes [id number] Take 1 [facility] 2 mg tablet 9-20 tablet by ity of 00:00: mouth [place] 00 every Medical morning Branch AND 0.5 tablets every evening. bumetanide 0 Yes [id number] Take 1 [facility] 2 mg tablet 9-20 tablet by ity of 00:00: mouth [place] 00 every Medical morning Branch AND 0.5 tablets every evening. bumetanide 0 Yes [id number] Take 1 [facility] 2 mg tablet 9-20 tablet by ity of 00:00: mouth [place] 00 every Medical morning Branch AND 0.5 tablets every evening. bumetanide 0 Yes [id number] Take 1 [facility] 2 mg tablet 9-20 tablet by ity of 00:00: mouth [place] 00 every Medical morning Branch AND 0.5 tablets every evening. bumetanide 0 Yes [id number] Take 1 [facility] 2 mg tablet 9-20 tablet by ity of 00:00: mouth [place] 00 every Medical morning Branch AND 0.5 tablets every evening. bumetanide 0 Yes [id number] Take 1 [facility] 2 mg tablet 9-20 tablet by [facility]y of 00:00: mouth [place] 00 every Medical morning Branch AND 0.5 tablets every evening. bumetanide 0 Yes [id number] Take 1 [facility] 2 mg tablet 9-20 tablet by [facility]y of 00:00: mouth [place] 00 every Medical morning Branch AND 0.5 tablets every evening. bumetanide 2021-0 Yes [id number] Take 1 [facility] 2 mg tablet 9-20 tablet by [facility]y of 00:00: mouth [place] 00 every Medical morning Branch AND 0.5 tablets every evening. bumetanide 0 Yes [id number] Take 1 [facility] 2 mg tablet 9-20 tablet by ity of 00:00: mouth [place] 00 every Medical morning Branch AND 0.5 tablets every evening. bumetanide 0 Yes [id number] Take 1 [facility] 2 mg tablet 9-20 tablet by ity of 00:00: mouth [place] 00 every Medical morning Branch AND 0.5 tablets every evening. bumetanide 0 Yes [id number] Take 1 [facility] 2 mg tablet 9-20 tablet by ity of 00:00: mouth [place] 00 every Medical morning Branch AND 0.5 tablets every evening. bumetanide 0 Yes [id number] Take 1 [facility] 2 mg tablet 9-20 tablet by ity of 00:00: mouth [place] 00 every Medical morning Branch AND 0.5 tablets every evening. bumetanide 0 Yes [id number] Take 1 [facility] 2 mg tablet 9-20 tablet by ity of 00:00: mouth [place] 00 every Medical morning Branch AND 0.5 tablets every evening. bumetanide 0 Yes [id number] Take 1 [facility] n[facility] 2 mg tablet 9-20 tablet by ity of 00:00: mouth [place] 00 every Medical morning Branch AND 0.5 tablets every evening. bumetanide 0 Yes [id number] Take 1 [facility] 2 mg tablet 9-20 tablet by ity of 00:00: mouth [place] 00 every Medical morning Branch AND 0.5 tablets every evening. bumetanide 0 Yes [id number] Take 1 [facility] 2 mg tablet 9-20 tablet by ity of 00:00: mouth [place] 00 every Medical morning Branch AND 0.5 tablets every evening. bumetanide 0 Yes [id number] Take 1 [facility] 2 mg tablet 9-20 tablet by ity of 00:00: mouth [place] 00 every Medical morning Branch AND 0.5 tablets every evening. bumetanide 0 Yes [id number] Take 1 [facility] 2 mg tablet 9-20 tablet by ity of 00:00: mouth [place] 00 every Medical morning Branch AND 0.5 tablets every evening. bumetanide 0 Yes [id number] Take 1 [facility] 2 mg tablet 9-20 tablet by ity of 00:00: mouth [place] 00 every Medical morning Branch AND 0.5 tablets every evening. bumetanide 0 Yes [id number] Take 1 [facility] 2 mg tablet 9-20 tablet by ity of 00:00: mouth [place] 00 every Medical morning Branch AND 0.5 tablets every evening. bumetanide 0 Yes [id number] Take 1 [facility] 2 mg tablet 9-20 tablet by ity of 00:00: mouth [place] 00 every Medical morning Branch AND 0.5 tablets every evening. bumetanide 0 Yes [id number] Take 1 [facility] 2 mg tablet 9-20 tablet by ity of 00:00: mouth [place] 00 every Medical morning Branch AND 0.5 tablets every evening. bumetanide 0 Yes [id number] Take 1 [facility] 2 mg tablet 9-20 tablet by ity of 00:00: mouth [place] 00 every Medical morning Branch AND 0.5 tablets every evening. bumetanide 0 Yes [id number] Take 1 [facility] 2 mg tablet 9-20 tablet by [facility]y of 00:00: mouth [place] 00 every Medical morning Branch AND 0.5 tablets every evening. bumetanide 0 2022- No [id number] Take 1 [facility] 2 mg tablet 9-20 07-30 tablet by it y of 00:00: 00:00 mouth [place] 00 :00 every Medical morning Branch AND 0.5 tablets every evening. iron 2021-0 2022- No [id number] 250mg 250 mg, IV U nivers sucrose 03-06 Infusion, ity of (VENOFER) 13:30: 15:32 ONCE, [place] 250 mg in 00 :00 Administer Medi juan NaCl 0.9% over 1.5 Branch (NS) 250 mL Hours, On infusion 03/06/22 at 0830, For 1 dose tiZANidine 0 Yes [id number] TAKE 1 [facility] 4 mg tablet 9-08 TABLET BY ity of 00:00: MOUTH [place] 00 EVERY 8 Medical HOURS Branch NEEDED FOR PAIN (SCALE 4-6). tiZANidine 2-0 Yes [id number] TAKE 1 [facility] 4 mg tablet 9-08 TABLET BY ity of 00:00: MOUTH [place] 00 EVERY 8 Medical HOURS Branch NEEDED FOR PAIN (SCALE 4-6). tiZANidine 2-0 Yes [id number] TAKE 1 [facility] 4 mg tablet 9-08 TABLET BY ity of 00:00: MOUTH [place] 00 EVERY 8 Medical HOURS Branch NEEDED FOR PAIN (SCALE 4-6). tiZANidine 2021-0 Yes [id number] TAKE 1 [facility] 4 mg tablet 9-08 TABLET BY ity of 00:00: MOUTH [place] 00 EVERY 8 Medical HOURS Branch NEEDED FOR PAIN (SCALE 4-6). tiZANidine 2021-0 Yes [id number] TAKE 1 [facility] 4 mg tablet 9-08 TABLET BY ity of 00:00: MOUTH [place] 00 EVERY 8 Medical HOURS Branch NEEDED FOR PAIN (SCALE 4-6). tiZANidine 2021-0 Yes [id number] TAKE 1 [facility] 4 mg tablet 9-08 TABLET BY ity of 00:00: MOUTH [place] 00 EVERY 8 Medical HOURS Branch NEEDED FOR PAIN (SCALE 4-6). tiZANidine 2021-0 Yes [id number] TAKE 1 [facility] 4 mg tablet 9-08 TABLET BY ity of 00:00: MOUTH [place] 00 EVERY 8 Medical HOURS Branch NEEDED FOR PAIN (SCALE 4-6). tiZANidine 2021-0 Yes [id number] TAKE 1 [facility] 4 mg tablet 9-08 TABLET BY ity of 00:00: MOUTH [place] 00 EVERY 8 Medical HOURS Branch NEEDED FOR PAIN (SCALE 4-6). tiZANidine 2-0 Yes [id number] TAKE 1 [facility] 4 mg tablet 9-08 TABLET BY ity of 00:00: MOUTH [place] 00 EVERY 8 Medical HOURS Branch NEEDED FOR PAIN (SCALE 4-6). tiZANidine 2-0 Yes [id number] TAKE 1 [facility] 4 mg tablet 9-08 TABLET BY ity of 00:00: MOUTH [place] 00 EVERY 8 Medical HOURS Branch NEEDED FOR PAIN (SCALE 4-6). tiZANidine 2021-0 Yes [id number] TAKE 1 [facility] 4 mg tablet 9-08 TABLET BY ity of 00:00: MOUTH [place] 00 EVERY 8 Medical HOURS Branch NEEDED FOR PAIN (SCALE 4-6). tiZANidine 2-0 Yes [id number] TAKE 1 [facility] 4 mg tablet 9-08 TABLET BY ity of 00:00: MOUTH [place] 00 EVERY 8 Medical HOURS Branch NEEDED FOR PAIN (SCALE 4-6). tiZANidine 2-0 Yes [id number] TAKE 1 [facility] 4 mg tablet 9-08 TABLET BY [facility] of 00:00: MOUTH [place] 00 EVERY 8 Medical HOURS Branch NEEDED FOR PAIN (SCALE 4-6). tiZANidine 2021-0 Yes [id number] TAKE 1 [facility] 4 mg tablet 9-08 TABLET BY it[facility] of 00:00: MOUTH [place] 00 EVERY 8 Medical HOURS Branch NEEDED FOR PAIN (SCALE 4-6). tiZANidine 2021-0 Yes [id number] TAKE 1 [facility] 4 mg tablet 9-08 TABLET BY ity of 00:00: MOUTH [place] 00 EVERY 8 Medical HOURS Branch NEEDED FOR PAIN (SCALE 4-6). tiZANidine 2021-0 Yes [id number] TAKE 1 [facility] 4 mg tablet 9-08 TABLET BY it[facility] of 00:00: MOUTH [place] 00 EVERY 8 Medical HOURS Branch NEEDED FOR PAIN (SCALE 4-6). tiZANidine 2021-0 Yes [id number] TAKE 1 [facility] 4 mg tablet 9-08 TABLET BY it[facility] of 00:00: MOUTH [place] 00 EVERY 8 Medical HOURS Branch NEEDED FOR PAIN (SCALE 4-6). tiZANidine 2021-0 Yes [id number] TAKE 1 [facility] 4 mg tablet 9-08 TABLET BY ity of 00:00: MOUTH [place] 00 EVERY 8 Medical HOURS Branch NEEDED FOR PAIN (SCALE 4-6). tiZANidine 2-0 Yes [id number] TAKE 1 [facility] 4 mg tablet 9-08 TABLET BY ity of 00:00: MOUTH [place] 00 EVERY 8 Medical HOURS Branch NEEDED FOR PAIN (SCALE 4-6). tiZANidine 2-0 Yes [id number] TAKE 1 [facility] 4 mg tablet 9-08 TABLET BY ity of 00:00: MOUTH [place] 00 EVERY 8 Medical HOURS Branch NEEDED FOR PAIN (SCALE 4-6). tiZANidine 2021-0 Yes [id number] TAKE 1 [facility] 4 mg tablet 9-08 TABLET BY ity of 00:00: MOUTH [place] 00 EVERY 8 Medical HOURS Branch NEEDED FOR PAIN (SCALE 4-6). tiZANidine 2-0 Yes [id number] TAKE 1 [facility] 4 mg tablet 9-08 TABLET BY ity of 00:00: MOUTH [place] 00 EVERY 8 Medical HOURS Branch NEEDED FOR PAIN (SCALE 4-6). tiZANidine 2-0 Yes [id number] TAKE 1 [facility] 4 mg tablet 9-08 TABLET BY ity of 00:00: MOUTH [place] 00 EVERY 8 Medical HOURS Branch NEEDED FOR PAIN (SCALE 4-6). tiZANidine 2021-0 Yes [id number] TAKE 1 [facility] 4 mg tablet 9-08 TABLET BY it[facility] of 00:00: MOUTH [place] 00 EVERY 8 Medical HOURS Branch NEEDED FOR PAIN (SCALE 4-6). tiZANidine 2021-0 Yes [id number] TAKE 1 [facility] 4 mg tablet 9-08 TABLET BY ity of 00:00: MOUTH [place] 00 EVERY 8 Medical HOURS Branch NEEDED FOR PAIN (SCALE 4-6). tiZANidine 2021-0 Yes [id number] TAKE 1 [facility] 4 mg tablet 9-08 TABLET BY it[facility] of 00:00: MOUTH [place] 00 EVERY 8 Medical HOURS Branch NEEDED FOR PAIN (SCALE 4-6). tiZANidine 2021-0 Yes [id number] TAKE 1 [facility] 4 mg tablet 9-08 TABLET BY it[facility] of 00:00: MOUTH [place] 00 EVERY 8 Medical HOURS Branch NEEDED FOR PAIN (SCALE 4-6). tiZANidine 2021-0 Yes [id number] TAKE 1 [facility] 9-08 TABLET BY [facility] 00:00: MOUTH [place] 00 EVERY 8 Medical HOURS Branch NEEDED FOR PAIN (SCALE 4-6). tiZANidine 2-0 Yes [id number] TAKE 1 [facility] 4 [facility] tablet 9-08 TABLET BY [facility] 00:00: MOUTH [place] 00 EVERY 8 Medical HOURS Branch NEEDED FOR PAIN (SCALE 4-6). tiZANidine 2-0 Yes [id number] TAKE 1 [facility] 4 [facility] tablet 9-08 TABLET BY [facility] 00:00: MOUTH [place] 00 EVERY 8 Medical HOURS Branch NEEDED FOR PAIN (SCALE 4-6). tiZANidine 2021-0 Yes [id number] TAKE 1 [facility] 4 [facility] tablet 9-08 TABLET BY [facility] 00:00: MOUTH [place] 00 EVERY 8 Medical HOURS Branch NEEDED FOR PAIN (SCALE 4-6). tiZANidine 2-0 Yes [id number] TAKE 1 [facility] 4 mg tablet 9-08 TABLET BY [facility] 00:00: MOUTH [place] 00 EVERY 8 Medical HOURS Branch NEEDED FOR PAIN (SCALE 4-6). tiZANidine 2-0 Yes [id number] TAKE 1 [facility] 4 [facility] tablet 9-08 TABLET BY [facility] 00:00: MOUTH [place] 00 EVERY 8 Medical HOURS Branch NEEDED FOR PAIN (SCALE 4-6). tiZANidine 2021-0 Yes [id number] TAKE 1 [facility] 4 [facility] tablet 9-08 TABLET BY [facility] 00:00: MOUTH [place] 00 EVERY 8 Medical HOURS Branch NEEDED FOR PAIN (SCALE 4-6). tiZANidine 2021-0 Yes [id number] TAKE 1 [facility] 4 [facility] tablet 9-08 TABLET BY [facility] 00:00: MOUTH [place] 00 EVERY 8 Medical HOURS Branch NEEDED FOR PAIN (SCALE 4-6). tiZANidine 2021-0 Yes [id number] TAKE 1 [facility] 4 mg tablet 9-08 TABLET BY [facility] 00:00: MOUTH [place] 00 EVERY 8 Medical HOURS Branch NEEDED FOR PAIN (SCALE 4-6). tiZANidine 2021-0 Yes [id number] TAKE 1 [facility] 4 mg tablet 9-08 TABLET BY [facility] 00:00: MOUTH [place] 00 EVERY 8 Medical HOURS Branch NEEDED FOR PAIN (SCALE 4-6). tiZANidine 2021-0 Yes [id number] TAKE 1 [facility] 4 mg tablet 9-08 TABLET BY [facility] 00:00: MOUTH [place] 00 EVERY 8 Medical HOURS Branch NEEDED FOR PAIN (SCALE 4-6). tiZANidine 2-0 Yes [id number] TAKE 1 [facility] 4 mg tablet 9-08 TABLET BY [facility] 00:00: MOUTH [place] 00 EVERY 8 Medical HOURS Branch NEEDED FOR PAIN (SCALE 4-6). tiZANidine 2-0 Yes [id number] TAKE 1 [facility] 4 mg tablet 9-08 TABLET BY [facility] 00:00: MOUTH [place] 00 EVERY 8 Medical HOURS Branch NEEDED FOR PAIN (SCALE 4-6). tiZANidine 2021-0 Yes [id number] TAKE 1 [facility] 4 [facility] tablet 9-08 TABLET BY [facility] 00:00: MOUTH [place] 00 EVERY 8 Medical HOURS Branch NEEDED FOR PAIN (SCALE 4-6). tiZANidine 2-0 Yes [id number] TAKE 1 [facility] 4 [facility] tablet 9-08 TABLET BY [facility] 00:00: MOUTH [place] 00 EVERY 8 Medical HOURS Branch NEEDED FOR PAIN (SCALE 4-6). tiZANidine 2-0 Yes [id number] TAKE 1 [facility] 4 [facility] tablet 9-08 TABLET BY [facility] 00:00: MOUTH [place] 00 EVERY 8 Medical HOURS Branch NEEDED FOR PAIN (SCALE 4-6). tiZANidine 2021-0 Yes [id number] TAKE 1 [facility] 4 [facility] tablet 9-08 TABLET BY [facility] 00:00: MOUTH [place] 00 EVERY 8 Medical HOURS Branch NEEDED FOR PAIN (SCALE 4-6). tiZANidine 2021-0 Yes [id number] TAKE 1 [facility] 4 [facility] tablet 9-08 TABLET BY [facility] 00:00: MOUTH [place] 00 EVERY 8 Medical HOURS Branch NEEDED FOR PAIN (SCALE 4-6). tiZANidine 2021-0 Yes [id number] TAKE 1 [facility] 4 [facility] tablet 9-08 TABLET BY [facility] 00:00: MOUTH [place] 00 EVERY 8 Medical HOURS Branch NEEDED FOR PAIN (SCALE 4-6). tiZANidine 2021-0 Yes [id number] TAKE 1 [facility] 4 [facility] tablet 9-08 TABLET BY [facility] 00:00: MOUTH [place] 00 EVERY 8 Medical HOURS Branch NEEDED FOR PAIN (SCALE 4-6). tiZANidine 2021-0 Yes [id number] TAKE 1 [facility] 4 [facility] tablet 9-08 TABLET BY [facility] 00:00: MOUTH [place] 00 EVERY 8 Medical HOURS Branch NEEDED FOR PAIN (SCALE 4-6). tiZANidine 2-0 Yes [id number] TAKE 1 [facility] 4 mg tablet 9-08 TABLET BY [facility] 00:00: MOUTH [place] 00 EVERY 8 Medical HOURS Branch NEEDED FOR PAIN (SCALE 4-6). tiZANidine 2-0 Yes [id number] TAKE 1 [facility] 4 mg tablet 9-08 TABLET BY [facility] 00:00: MOUTH [place] 00 EVERY 8 Medical HOURS Branch NEEDED FOR PAIN (SCALE 4-6). tiZANidine 2021-0 Yes [id number] TAKE 1 [facility] 4 mg tablet 9-08 TABLET BY [facility] 00:00: MOUTH [place] 00 EVERY 8 Medical HOURS Branch NEEDED FOR PAIN (SCALE 4-6). tiZANidine 2-0 Yes [id number] TAKE 1 [facility] 4 mg tablet 9-08 TABLET BY [facility] 00:00: MOUTH [place] 00 EVERY 8 Medical HOURS Branch NEEDED FOR PAIN (SCALE 4-6). tiZANidine 2-0 Yes [id number] TAKE 1 [facility] 4 mg tablet 9-08 TABLET BY [facility] 00:00: MOUTH [place] 00 EVERY 8 Medical HOURS Branch NEEDED FOR PAIN (SCALE 4-6). tiZANidine 2021-0 Yes [id number] TAKE 1 [facility] 4 [facility] tablet 9-08 TABLET BY [facility] 00:00: MOUTH [place] 00 EVERY 8 Medical HOURS Branch NEEDED FOR PAIN (SCALE 4-6). tiZANidine 2021-0 Yes [id number] TAKE 1 [facility] 4 [facility] tablet 9-08 TABLET BY [facility] 00:00: MOUTH [place] 00 EVERY 8 Medical HOURS Branch NEEDED FOR PAIN (SCALE 4-6). tiZANidine 2021-0 Yes [id number] TAKE 1 [facility] 4 [facility] tablet 9-08 TABLET BY [facility] 00:00: MOUTH [place] 00 EVERY 8 Medical HOURS Branch NEEDED FOR PAIN (SCALE 4-6). tiZANidine 2021-0 Yes [id number] TAKE 1 [facility] 4 [facility] tablet 9-08 TABLET BY [facility] 00:00: MOUTH [place] 00 EVERY 8 Medical HOURS Branch NEEDED FOR PAIN (SCALE 4-6). tiZANidine 2021-0 Yes [id number] TAKE 1 [facility] 4 [facility] tablet 9-08 TABLET BY [facility] 00:00: MOUTH [place] 00 EVERY 8 Medical HOURS Branch NEEDED FOR PAIN (SCALE 4-6). tiZANidine 2-0 Yes [id number] TAKE 1 [facility] 4 mg tablet 9-08 TABLET BY [facility] 00:00: MOUTH [place] 00 EVERY 8 Medical HOURS Branch NEEDED FOR PAIN (SCALE 4-6). tiZANidine 2-0 Yes [id number] TAKE 1 [facility] 4 [facility] tablet 9-08 TABLET BY [facility] 00:00: MOUTH [place] 00 EVERY 8 Medical HOURS Branch NEEDED FOR PAIN (SCALE 4-6). tiZANidine 2021-0 Yes [id number] TAKE 1 [facility] 4 [facility] tablet 9-08 TABLET BY [facility] 00:00: MOUTH [place] 00 EVERY 8 Medical HOURS Branch NEEDED FOR PAIN (SCALE 4-6). tiZANidine 2-0 Yes [id number] TAKE 1 [facility] 4 [facility] tablet 9-08 TABLET BY [facility] 00:00: MOUTH [place] 00 EVERY 8 Medical HOURS Branch NEEDED FOR PAIN (SCALE 4-6). tiZANidine 2-0 Yes [id number] TAKE 1 [facility] 4 mg tablet 9-08 TABLET BY [facility] 00:00: MOUTH [place] 00 EVERY 8 Medical HOURS Branch NEEDED FOR PAIN (SCALE 4-6). tiZANidine 2021-0 Yes [id number] TAKE 1 [facility] 4 mg tablet 9-08 TABLET BY [facility] 00:00: MOUTH [place] 00 EVERY 8 Medical HOURS Branch NEEDED FOR PAIN (SCALE 4-6). tiZANidine 2021-0 Yes [id number] TAKE 1 [facility] 4 mg tablet 9-08 TABLET BY [facility] 00:00: MOUTH [place] 00 EVERY 8 Medical HOURS Branch NEEDED FOR PAIN (SCALE 4-6). tiZANidine 2021-0 Yes [id number] TAKE 1 [facility] 4 [facility] tablet 9-08 TABLET BY [facility] 00:00: MOUTH [place] 00 EVERY 8 Medical HOURS Branch NEEDED FOR PAIN (SCALE 4-6). tiZANidine 2021-0 Yes [id number] TAKE 1 [facility] 4 [facility] tablet 9-08 TABLET BY [facility] 00:00: MOUTH [place] 00 EVERY 8 Medical HOURS Branch NEEDED FOR PAIN (SCALE 4-6). tiZANidine 2021-0 Yes [id number] TAKE 1 [facility] 4 mg tablet 9-08 TABLET BY [facility] 00:00: MOUTH [place] 00 EVERY 8 Medical HOURS Branch NEEDED FOR PAIN (SCALE 4-6). tiZANidine 2-0 Yes [id number] TAKE 1 [facility] 4 [facility] tablet 9-08 TABLET BY [facility] 00:00: MOUTH [place] 00 EVERY 8 Medical HOURS Branch NEEDED FOR PAIN (SCALE 4-6). tiZANidine 2-0 Yes [id number] TAKE 1 [facility] 4 [facility] tablet 9-08 TABLET BY [facility] 00:00: MOUTH [place] 00 EVERY 8 Medical HOURS Branch NEEDED FOR PAIN (SCALE 4-6). tiZANidine 2021-0 Yes [id number] TAKE 1 [facility] 4 [facility] tablet 9-08 TABLET BY [facility] 00:00: MOUTH [place] 00 EVERY 8 Medical HOURS Branch NEEDED FOR PAIN (SCALE 4-6). tiZANidine 2-0 Yes [id number] TAKE 1 [facility] 4 [facility] tablet 9-08 TABLET BY [facility] 00:00: MOUTH [place] 00 EVERY 8 Medical HOURS Branch NEEDED FOR PAIN (SCALE 4-6). tiZANidine 2-0 Yes [id number] TAKE 1 [facility] 4 mg tablet 9-08 TABLET BY [facility] 00:00: MOUTH [place] 00 EVERY 8 Medical HOURS Branch NEEDED FOR PAIN (SCALE 4-6). tiZANidine 2021-0 Yes [id number] TAKE 1 [facility] 4 [facility] tablet 9-08 TABLET BY [facility] 00:00: MOUTH [place] 00 EVERY 8 Medical HOURS Branch NEEDED FOR PAIN (SCALE 4-6). tiZANidine 2021-0 Yes [id number] TAKE 1 [facility] 4 [facility] tablet 9-08 TABLET BY [facility] 00:00: MOUTH [place] 00 EVERY 8 Medical HOURS Branch NEEDED FOR PAIN (SCALE 4-6). tiZANidine 2021-0 Yes [id number] TAKE 1 [facility] 4 mg tablet 9-08 TABLET BY [facility] 00:00: MOUTH [place] 00 EVERY 8 Medical HOURS Branch NEEDED FOR PAIN (SCALE 4-6). tiZANidine 2021-0 Yes [id number] TAKE 1 [facility] 4 mg tablet 9-08 TABLET BY [facility] 00:00: MOUTH [place] 00 EVERY 8 Medical HOURS Branch NEEDED FOR PAIN (SCALE 4-6). tiZANidine 2021-0 Yes [id number] TAKE 1 [facility] 4 mg tablet 9-08 TABLET BY [facility] 00:00: MOUTH [place] 00 EVERY 8 Medical HOURS Branch NEEDED FOR PAIN (SCALE 4-6). tiZANidine 2-0 Yes [id number] TAKE 1 [facility] 4 mg tablet 9-08 TABLET BY [facility] 00:00: MOUTH [place] 00 EVERY 8 Medical HOURS Branch NEEDED FOR PAIN (SCALE 4-6). tiZANidine 2-0 Yes [id number] TAKE 1 [facility] 4 mg tablet 9-08 TABLET BY [facility] 00:00: MOUTH [place] 00 EVERY 8 Medical HOURS Branch NEEDED FOR PAIN (SCALE 4-6). tiZANidine 2021-0 Yes [id number] TAKE 1 [facility] 4 mg tablet 9-08 TABLET BY [facility] 00:00: MOUTH [place] 00 EVERY 8 Medical HOURS Branch NEEDED FOR PAIN (SCALE 4-6). tiZANidine 2-0 Yes [id number] TAKE 1 [facility] 4 mg tablet 9-08 TABLET BY [facility] 00:00: MOUTH [place] 00 EVERY 8 Medical HOURS Branch NEEDED FOR PAIN (SCALE 4-6). tiZANidine 2-0 Yes [id number] TAKE 1 [facility] 4 mg tablet 9-08 TABLET BY [facility] 00:00: MOUTH [place] 00 EVERY 8 Medical HOURS Branch NEEDED FOR PAIN (SCALE 4-6). tiZANidine 2021-0 Yes [id number] TAKE 1 [facility] 4 mg tablet 9-08 TABLET BY [facility] 00:00: MOUTH [place] 00 EVERY 8 Medical HOURS Branch NEEDED FOR PAIN (SCALE 4-6). tiZANidine 2021-0 Yes [id number] TAKE 1 [facility] 4 mg tablet 9-08 TABLET BY [facility] 00:00: MOUTH [place] 00 EVERY 8 Medical HOURS Branch NEEDED FOR PAIN (SCALE 4-6). tiZANidine 2021-0 Yes [id number] TAKE 1 [facility] 4 mg tablet 9-08 TABLET BY [facility] 00:00: MOUTH [place] 00 EVERY 8 Medical HOURS Branch NEEDED FOR PAIN (SCALE 4-6). tiZANidine 2021-0 Yes [id number] TAKE 1 [facility] 4 mg tablet 9-08 TABLET BY [facility] 00:00: MOUTH [place] 00 EVERY 8 Medical HOURS Branch NEEDED FOR PAIN (SCALE 4-6). tiZANidine 2021-0 Yes [id number] TAKE 1 [facility] 4 mg tablet 9-08 TABLET BY [facility] 00:00: MOUTH [place] 00 EVERY 8 Medical HOURS Branch NEEDED FOR PAIN (SCALE 4-6). tiZANidine 2-0 Yes [id number] TAKE 1 [facility] 4 mg tablet 9-08 TABLET BY [facility] 00:00: MOUTH [place] 00 EVERY 8 Medical HOURS Branch NEEDED FOR PAIN (SCALE 4-6). tiZANidine 2-0 Yes [id number] TAKE 1 [facility] 4 mg tablet 9-08 TABLET BY [facility] 00:00: MOUTH [place] 00 EVERY 8 Medical HOURS Branch NEEDED FOR PAIN (SCALE 4-6). tiZANidine 2022-0 Yes [id number] TAKE 1 [facility] 4 mg tablet 9-08 TABLET BY [facility] 00:00: MOUTH [place] 00 EVERY 8 Medical HOURS Branch NEEDED FOR PAIN (SCALE 4-6). tiZANidine 2021-0 Yes [id number] TAKE 1 [facility] 4 mg tablet 9-08 TABLET BY [facility] 00:00: MOUTH [place] 00 EVERY 8 Medical HOURS Branch NEEDED FOR PAIN (SCALE 4-6). tiZANidine 2021-0 Yes [id number] TAKE 1 [facility] 4 mg tablet 9-08 TABLET BY [facility] 00:00: MOUTH [place] 00 EVERY 8 Medical HOURS Branch NEEDED FOR PAIN (SCALE 4-6). tiZANidine 2021-0 Yes [id number] TAKE 1 [facility] 4 mg tablet 9-08 TABLET BY [facility] 00:00: MOUTH [place] 00 EVERY 8 Medical HOURS Branch NEEDED FOR PAIN (SCALE 4-6). tiZANidine 2021-0 Yes [id number] TAKE 1 [facility] 4 mg tablet 9-08 TABLET BY [facility] 00:00: MOUTH [place] 00 EVERY 8 Medical HOURS Branch NEEDED FOR PAIN (SCALE 4-6). tiZANidine 2021-0 Yes [id number] TAKE 1 [facility] 4 mg tablet 9-08 TABLET BY [facility] 00:00: MOUTH [place] 00 EVERY 8 Medical HOURS Branch NEEDED FOR PAIN (SCALE 4-6). tiZANidine 2021-0 Yes [id number] TAKE 1 [facility] 4 mg tablet 9-08 TABLET BY [facility] 00:00: MOUTH [place] 00 EVERY 8 Medical HOURS Branch NEEDED FOR PAIN (SCALE 4-6). tiZANidine 2021-0 Yes [id number] TAKE 1 [facility] 4 mg tablet 9-08 TABLET BY [facility] 00:00: MOUTH [place] 00 EVERY 8 Medical HOURS Branch NEEDED FOR PAIN (SCALE 4-6). tiZANidine 2-0 Yes [id number] TAKE 1 [facility] 4 mg tablet 9-08 TABLET BY [facility] 00:00: MOUTH [place] 00 EVERY 8 Medical HOURS Branch NEEDED FOR PAIN (SCALE 4-6). tiZANidine 2022-0 2023- No [id number] TAKE 1 [facility] 4 mg tablet 9-08 04-03 TABLET BY it y of 00:00: 00:00 MOUTH [place] 00 :00 EVERY 8 Medical HOURS Branch NEEDED FOR PAIN (SCALE 4-6). tiZANidine 2021-2022- No [id number] TAKE 1 [facility] 4 mg tablet 02-26 TABLET BY [facility] y of 00:00: 00:00 MOUTH [place] 00 :00 EVERY 8 Medical HOURS Branch NEEDED FOR PAIN (SCALE 4-6). tiZANidine 2021-2022- No [id number] TAKE 1 [facility] 4 mg tablet 02-26 TABLET BY it y of 00:00: 00:00 MOUTH [place] 00 :00 EVERY 8 Medical HOURS Branch NEEDED FOR PAIN (SCALE 4-6). tiZANidine 2021-2022- No [id number] TAKE 1 [facility] 4 mg tablet 02-26 TABLET BY [facility] y of 00:00: 00:00 MOUTH [place] 00 :00 EVERY 8 Medical HOURS Branch NEEDED FOR PAIN (SCALE 4-6). tiZANidine 2022- No [id number] TAKE 1 [facility] 4 mg tablet 02-26 TABLET BY [facility] y of 00:00: 00:00 MOUTH [place] 00 :00 EVERY 8 Medical HOURS Branch NEEDED FOR PAIN (SCALE 4-6). tiZANidine 2022- No [id number] TAKE 1 [facility] 4 mg tablet 02-26 TABLET BY it y of 00:00: 00:00 MOUTH [place] 00 :00 EVERY 8 Medical HOURS Branch NEEDED FOR PAIN (SCALE 4-6). DIGOXIN 125 0 Yes [id number] TAKE ONE [facility] mcg (0.125 8-25 (1) TABLET [facility] mg) tablet 00:00: BY MOUTH [place] 00 EVERY Medical OTHER DAY. Branch DIGOXIN 125 0 Yes [id number] TAKE ONE [facility] mcg (0.125 8-25 (1) TABLET [facility] mg) tablet 00:00: BY MOUTH [place] 00 EVERY Medical OTHER DAY. Branch DIGOXIN 125 2021-0 Yes [id number] TAKE ONE [facility] mcg (0.125 8-25 (1) TABLET [facility] mg) tablet 00:00: BY MOUTH [place] 00 EVERY Medical OTHER DAY. Branch DIGOXIN 125 2021-0 Yes [id number] TAKE ONE [facility] mcg (0.125 8-25 (1) TABLET [facility] mg) tablet 00:00: BY MOUTH [place] 00 EVERY Medical OTHER DAY. [facility] DIGOXIN 125 0 Yes [id number] TAKE ONE [facility] mcg (0.125 8-25 (1) TABLET [facility] mg) tablet 00:00: BY MOUTH [place] 00 EVERY Medical OTHER DAY. [facility] DIGOXIN 125 0 Yes [id number] TAKE ONE [facility] mcg (0.125 8-25 (1) TABLET [facility] mg) tablet 00:00: BY MOUTH [place] 00 EVERY Medical OTHER DAY. [facility] DIGOXIN 125 0 Yes [id number] TAKE ONE [facility] mcg (0.125 8-25 (1) TABLET [facility] mg) tablet 00:00: BY MOUTH [place] 00 EVERY [facility] OTHER DAY. [facility] DIGOXIN 125 0 Yes [id number] TAKE ONE [facility] mcg (0.125 8-25 (1) TABLET [facility] mg) tablet 00:00: BY MOUTH [place] 00 EVERY Medical OTHER DAY. [facility] DIGOXIN 125 Yes [id number] TAKE ONE [facility] mcg (0.125 8-25 (1) TABLET [facility] mg) tablet 00:00: BY MOUTH [place] 00 EVERY Medical OTHER DAY. [facility] DIGOXIN 125 0 Yes [id number] TAKE ONE [facility] mcg (0.125 8-25 (1) TABLET [facility] mg) tablet 00:00: BY MOUTH [place] 00 EVERY Medical OTHER DAY. [facility] DIGOXIN 125 Yes [id number] TAKE ONE [facility] mcg (0.125 8-25 (1) TABLET [facility] mg) tablet 00:00: BY MOUTH [place] 00 EVERY Medical OTHER DAY. [facility] DIGOXIN 125 0 Yes [id number] TAKE ONE [facility] mcg (0.125 8-25 (1) TABLET [facility] mg) tablet 00:00: BY MOUTH [place] 00 EVERY Medical OTHER DAY. [facility] DIGOXIN 125 0 Yes [id number] TAKE ONE [facility] mcg (0.125 8-25 (1) TABLET [facility] mg) tablet 00:00: BY MOUTH [place] 00 EVERY Medical OTHER DAY. Branch DIGOXIN 125 Yes [id number] TAKE ONE [facility] mcg (0.125 8-25 (1) TABLET [facility] mg) tablet 00:00: BY MOUTH [place] 00 EVERY Medical OTHER DAY. Branch DIGOXIN 125 0 Yes [id number] TAKE ONE [facility] mcg (0.125 8-25 (1) TABLET [facility] mg) tablet 00:00: BY MOUTH [place] 00 EVERY Medical OTHER DAY. Branch DIGOXIN 125 0 Yes [id number] TAKE ONE [facility] mcg (0.125 8-25 (1) TABLET [facility] mg) tablet 00:00: BY MOUTH [place] 00 EVERY Medical OTHER DAY. Branch DIGOXIN 125 Yes [id number] TAKE ONE [facility] mcg (0.125 8-25 (1) TABLET [facility] mg) tablet 00:00: BY MOUTH [place] 00 EVERY Medical OTHER DAY. Branch DIGOXIN 125 0 Yes [id number] TAKE ONE [facility] mcg (0.125 8-25 (1) TABLET [facility] mg) tablet 00:00: BY MOUTH [place] 00 EVERY Medical OTHER DAY. Branch DIGOXIN 125 Yes [id number] TAKE ONE [facility] mcg (0.125 8-25 (1) TABLET [facility] mg) tablet 00:00: BY MOUTH [place] 00 EVERY Medical OTHER DAY. Branch DIGOXIN 125 Yes [id number] TAKE ONE [facility]cg (0.125 8-25 (1) TABLET [facility] mg) tablet 00:00: BY MOUTH [place] 00 EVERY [facility] OTHER DAY. Branch DIGOXIN 125 Yes [id number] TAKE ONE [facility] mcg (0.125 8-25 (1) TABLET [facility] mg) tablet 00:00: BY MOUTH [place] 00 EVERY Medical OTHER DAY. [facility] DIGOXIN 125 Yes [id number] TAKE ONE [facility] mcg (0.125 8-25 (1) TABLET [facility] mg) tablet 00:00: BY MOUTH [place] 00 EVERY [facility] OTHER DAY. Branch DIGOXIN 125 Yes [id number] TAKE ONE [facility] mcg (0.125 8-25 (1) TABLET [facility] mg) tablet 00:00: BY MOUTH [place] 00 EVERY Medical OTHER DAY. Branch DIGOXIN 125 0 Yes [id number] TAKE ONE [facility] mcg (0.125 8-25 (1) TABLET [facility] mg) tablet 00:00: BY MOUTH [place] 00 EVERY Medical OTHER DAY. Branch DIGOXIN 125 0 Yes [id number] TAKE ONE [facility] mcg (0.125 8-25 (1) TABLET [facility] mg) tablet 00:00: BY MOUTH [place] 00 EVERY Medical OTHER DAY. Branch DIGOXIN 125 Yes [id number] TAKE ONE [facility] mcg (0.125 8-25 (1) TABLET [facility] mg) tablet 00:00: BY MOUTH [place] 00 EVERY Medical OTHER DAY. Branch DIGOXIN 125 0 Yes [id number] TAKE ONE [facility] mcg (0.125 8-25 (1) TABLET [facility] mg) tablet 00:00: BY MOUTH [place] 00 EVERY Medical OTHER DAY. Branch DIGOXIN 125 0 Yes [id number] TAKE ONE [facility]cg (0.125 8-25 (1) TABLET [facility] mg) tablet 00:00: BY MOUTH [place] 00 EVERY Medical OTHER DAY. Branch DIGOXIN 125 0 Yes [id number] TAKE ONE [facility]cg (0.125 8-25 (1) TABLET [facility] mg) tablet 00:00: BY MOUTH [place] 00 EVERY [facility] OTHER DAY. Branch DIGOXIN 125 0 Yes [id number] TAKE ONE [facility] mcg (0.125 8-25 (1) TABLET [facility] mg) tablet 00:00: BY MOUTH [place] 00 EVERY Medical OTHER DAY. Branch DIGOXIN 125 0 Yes [id number] TAKE ONE [facility] mcg (0.125 8-25 (1) TABLET [facility] mg) tablet 00:00: BY MOUTH [place] 00 EVERY Medical OTHER DAY. Branch DIGOXIN 125 0 Yes [id number] TAKE ONE [facility] mcg (0.125 8-25 (1) TABLET [facility] mg) tablet 00:00: BY MOUTH [place] 00 EVERY Medical OTHER DAY. Branch DIGOXIN 125 Yes [id number] TAKE ONE [facility] mcg (0.125 8-25 (1) TABLET [facility] mg) tablet 00:00: BY MOUTH [place] 00 EVERY Medical OTHER DAY. Branch DIGOXIN 125 0 Yes [id number] TAKE ONE [facility] mcg (0.125 8-25 (1) TABLET [facility] mg) tablet 00:00: BY MOUTH [place] 00 EVERY Medical OTHER DAY. Branch DIGOXIN 125 0 Yes [id number] TAKE ONE [facility] mcg (0.125 8-25 (1) TABLET [facility] mg) tablet 00:00: BY MOUTH [place] 00 EVERY Medical OTHER DAY. Branch DIGOXIN 125 0 2021- No [id number] TAKE ONE [facility] mcg (0.125 8-25 11-17 (1) TABLET [facility] y of mg) tablet 00:00: 00:00 BY MOUTH [place] 00 :00 EVERY Medical OTHER DAY. [place] warfarin Yes [id number] Take 1 [facility] mg tablet 8-21 tablet by ity o f 00:00: mouth [place] 00 every Medical Yg in [place] the evening AND 1 tablet every in the evening AND 0.5 tablets every Mon, Wed, Fri and Sat in the evening AND 0.5 tablets every [place] in the evening. warfarin Yes [id number] Take 1 [facility] mg tablet 8-21 tablet by ity o f 00:00: mouth [place] 00 every Medical Wednesday in [place] the evening AND 1 tablet every in the evening AND 0.5 tablets every Mon, Wed, Fri and Sat in the evening AND 0.5 tablets every Wednesday in the evening. warfarin Yes [id number] Take 1 [facility] mg tablet 8-21 tablet by ity o f 00:00: mouth [place] 00 every Medical Wednesday in [place] the evening AND 1 tablet every in the evening AND 0.5 tablets every Mon, Wed, Fri and Sat in the evening AND 0.5 tablets every Wednesday in the evening. warfarin Yes [id number] Take 1 [facility] mg tablet 8-21 tablet by ity o f 00:00: mouth [place] 00 every Medical Wednesday in [place] the evening AND 1 tablet every in the evening AND 0.5 tablets every Mon, Wed, Fri and Sat in the evening AND 0.5 tablets every Wednesday in the evening. warfarin Yes [id number] Take 1 [facility] mg tablet 8-21 tablet by ity o f 00:00: mouth [place] 00 every Medical Wednesday in [place] the evening AND 1 tablet every day in the evening AND 0.5 tablets every Mon, Wed, Fri and Sat in the evening AND 0.5 tablets every Wednesday in the evening. warfarin 5 Yes [id number] Take 1 [facility] mg tablet 8-21 tablet by ity o f 00:00: mouth [place] 00 every Medical Wednesday in [place] the evening AND 1 tablet every day in the evening AND 0.5 tablets every Mon, Wed, Fri and Sat in the evening AND 0.5 tablets every Wednesday in the evening. warfarin 5 Yes [id number] Take 1 [facility] mg tablet 8-21 tablet by ity o f 00:00: mouth [place] 00 every Medical Wednesday in [facility] the evening AND 1 tablet every day in the evening AND 0.5 tablets every Mon, Wed, Fri and Sat in the evening AND 0.5 tablets every Wednesday in the evening. warfarin Yes [id number] Take 1 [facility] mg tablet 8-21 tablet by ity o f 00:00: mouth [place] 00 every Medical Wednesday in [facility] the evening AND 1 tablet every day in the evening AND 0.5 tablets every Mon, Wed, Fri and Sat in the evening AND 0.5 tablets every Wednesday in the evening. warfarin Yes [id number] Take 1 [facility] mg tablet 8-21 tablet by ity o f 00:00: mouth [place] 00 every Medical Wednesday in Branch the evening AND 1 tablet every day in the evening AND 0.5 tablets every Mon, Wed, Fri and Sat in the evening AND 0.5 tablets every Wednesday in the evening. warfarin Yes [id number] Take 1 [facility] mg tablet 8-21 tablet by ity o f 00:00: mouth [place] 00 every Medical Wednesday in [facility] the evening AND 1 tablet every in the evening AND 0.5 tablets every Mon, Wed, Fri and Sat in the evening AND 0.5 tablets every Wednesday in the evening. warfarin Yes [id number] Take 1 [facility] mg tablet 8-21 tablet by ity o f 00:00: mouth [place] 00 every Medical Wednesday in [facility] the evening AND 1 tablet every day in the evening AND 0.5 tablets every Mon, Wed, Fri and Sat in the evening AND 0.5 tablets every Wednesday in the evening. warfarin Yes [id number] Take 1 [facility] mg tablet 8-21 tablet by ity o f 00:00: mouth [place] 00 every Medical Wednesday in [facility] the evening AND 1 tablet every ursday in the evening AND 0.5 tablets every Mon, Wed, Fri and Sat in the evening AND 0.5 tablets every [place] in the evening. warfarin Yes [id number] Take 1 [facility] mg tablet 8-21 tablet by ity o f 00:00: mouth [place] 00 every Medical Yg in [facility] the evening AND 1 tablet every day in the evening AND 0.5 tablets every Mon, Wed, Fri and Sat in the evening AND 0.5 tablets every Wednesday in the evening. warfarin Yes [id number] Take 1 [facility] mg tablet 8-21 tablet by ity o f 00:00: mouth [place] 00 every Medical Wednesday in [facility] the evening AND 1 tablet every in the evening AND 0.5 tablets every Mon, Wed, Fri and Sat in the evening AND 0.5 tablets every Wednesday in the evening. warfarin Yes [id number] Take 1 [facility] mg tablet 8-21 tablet by ity o f 00:00: mouth [place] 00 every Medical Wednesday in Branch the evening AND 1 tablet every day in the evening AND 0.5 tablets every Mon, Wed, Fri and Sat in the evening AND 0.5 tablets every Wednesday in the evening. warfarin Yes [id number] Take 1 [facility] mg tablet 8-21 tablet by ity o f 00:00: mouth [place] 00 every Medical Wednesday in [facility] the evening AND 1 tablet every day in the evening AND 0.5 tablets every Mon, Wed, Fri and Sat in the evening AND 0.5 tablets every Wednesday in the evening. warfarin Yes [id number] Take 1 [facility] mg tablet 8-21 tablet by ity o f 00:00: mouth [place] 00 every Medical Wednesday in [facility] the evening AND 1 tablet every day in the evening AND 0.5 tablets every Mon, Wed, Fri and Sat in the evening AND 0.5 tablets every [place] in the evening. warfarin Yes [id number] Take 1 [facility] mg tablet 8-21 tablet by ity o f 00:00: mouth [place] 00 every Medical Wednesday in [facility] the evening AND 1 tablet every day in the evening AND 0.5 tablets every Mon, Wed, Fri and Sat in the evening AND 0.5 tablets every Wednesday in the evening. warfarin 5 Yes [id number] Take 1 [facility] mg tablet 8-21 tablet by ity o f 00:00: mouth [place] 00 every Medical Wednesday in Branch the evening AND 1 tablet every Thursday in the evening AND 0.5 tablets every Mon, Wed, Fri and Sat in the evening AND 0.5 tablets every [place] in the evening. warfarin Yes [id number] Take 1 [facility] mg tablet 8-21 tablet by ity o f 00:00: mouth [place] 00 every Medical Wednesday in Branch the evening AND 1 tablet every ursday in the evening AND 0.5 tablets every Mon, Wed, Fri and Sat in the evening AND 0.5 tablets every [place] in the evening. warfarin Yes [id number] Take 1 [facility] mg tablet 8-21 tablet by ity o f 00:00: mouth [place] 00 every Medical Wednesday in Branch the evening AND 1 tablet every day in the evening AND 0.5 tablets every Mon, Wed, Fri and Sat in the evening AND 0.5 tablets every [place] in the evening. warfarin Yes [id number] Take 1 [facility] mg tablet 8-21 tablet by [facility] o f 00:00: mouth [place] 00 every Medical Wednesday in [facility] the evening AND 1 tablet every ursday in the evening AND 0.5 tablets every Mon, Wed, Fri and Sat in the evening AND 0.5 tablets every [facility] in the evening. warfarin Yes [id number] Take 1 [facility] mg tablet 8-21 tablet by [facility] f 00:00: mouth [place] 00 every Medical Wednesday in [facility] the evening AND 1 tablet every day in the evening AND 0.5 tablets every Mon, Wed, Fri and Sat in the evening AND 0.5 tablets every Wednesday in the evening. warfarin Yes [id number] Take 1 [facility] tablet 8-21 tablet by [facility] f 00:00: mouth [place] 00 every Medical Wednesday in [facility] the evening AND 1 tablet every Thursday in the evening AND 0.5 tablets every Mon, Wed, Fri and Sat in the evening AND 0.5 tablets every [facility] in the evening. warfarin Yes [id number] Take 1 [facility] tablet 8-21 tablet by [facility] f 00:00: mouth [place] 00 every Medical Wednesday in [facility] the evening AND 1 tablet every day in the evening AND 0.5 tablets every Mon, Wed, Fri and Sat in the evening AND 0.5 tablets every [facility] in the evening. warfarin Yes [id number] Take 1 [facility] tablet 8-21 tablet by [facility] f 00:00: mouth [place] 00 every Medical Wednesday in [facility] the evening AND 1 tablet every day in the evening AND 0.5 tablets every Mon, Wed, Fri and Sat in the evening AND 0.5 tablets every [facility] in the evening. warfarin Yes [id number] Take 1 [facility] tablet 8-21 tablet by [facility] f 00:00: mouth [place] 00 every Medical Wednesday in [facility] the evening AND 1 tablet every day in the evening AND 0.5 tablets every Mon, Wed, Fri and Sat in the evening AND 0.5 tablets every Wednesday in the evening. warfarin Yes [id number] Take 1 [facility] tablet 8-21 tablet by [facility] f 00:00: mouth [place] 00 every Wednesday in [facility] the evening AND 1 tablet every day in the evening AND 0.5 tablets every Mon, Wed, Fri and Sat in the evening AND 0.5 tablets every Wednesday in the evening. warfarin Yes [id number] Take 1 [facility] tablet 8-21 tablet by [facility] f 00:00: mouth [place] 00 every Medical Wednesday in [place] the evening AND 1 tablet every day in the evening AND 0.5 tablets every Mon, Wed, Fri and Sat in the evening AND 0.5 tablets every [facility] in the evening. warfarin Yes [id number] Take 1 [facility] tablet 8-21 tablet by [facility] f 00:00: mouth [place] 00 every Medical Wednesday in [facility] the evening AND 1 tablet every day in the evening AND 0.5 tablets every Mon, Wed, Fri and Sat in the evening AND 0.5 tablets every [facility] in the evening. warfarin Yes [id number] Take 1 [facility] tablet 8-21 tablet by [facility] f 00:00: mouth [place] 00 every Medical Wednesday in [place] the evening AND 1 tablet every day in the evening AND 0.5 tablets every Mon, Wed, Fri and Sat in the evening AND 0.5 tablets every [facility] in the evening. warfarin Yes [id number] Take 1 [facility] tablet 8-21 tablet by [facility] f 00:00: mouth [place] 00 every Medical Wednesday in [facility] the evening AND 1 tablet every day in the evening AND 0.5 tablets every Mon, Wed, Fri and Sat in the evening AND 0.5 tablets every Wednesday in the evening. warfarin Yes [id number] Take 1 [facility] tablet 8-21 tablet by [facility] 00:00: mouth [place] 00 every Medical Wednesday in [facility] the evening AND 1 tablet every day in the evening AND 0.5 tablets every Mon, Wed, Fri and Sat in the evening AND 0.5 tablets every Wednesday in the evening. warfarin Yes [id number] Take 1 [facility] tablet 8-21 tablet by [facility] 00:00: mouth [place] 00 every Medical Wednesday in [facility] the evening AND 1 tablet every day in the evening AND 0.5 tablets every Mon, Wed, Fri and Sat in the evening AND 0.5 tablets every Wednesday in the evening. warfarin Yes [id number] Take 1 [facility] tablet 8-21 tablet by [facility] f 00:00: mouth [place] 00 every Medical Wednesday in [facility] the evening AND 1 tablet every in the evening AND 0.5 tablets every Mon, Wed, Fri and Sat in the evening AND 0.5 tablets every Wednesday in the evening. warfarin Yes [id number] Take 1 [facility] tablet 8-21 tablet by [facility] f 00:00: mouth [place] 00 every Medical Wednesday in [facility] the evening AND 1 tablet every day in the evening AND 0.5 tablets every Mon, Wed, Fri and Sat in the evening AND 0.5 tablets every Wednesday in the evening. warfarin Yes [id number] Take 1 [facility] tablet 8-21 tablet by [facility] f 00:00: mouth [place] 00 every Medical Wednesday in [facility] the evening AND 1 tablet every ursday in the evening AND 0.5 tablets every Mon, Wed, Fri and Sat in the evening AND 0.5 tablets every [facility] in the evening. warfarin Yes [id number] Take 1 [facility] tablet 8-21 tablet by [facility] f 00:00: mouth [place] 00 every Medical Yg in [facility] the evening AND 1 tablet every day in the evening AND 0.5 tablets every Mon, Wed, Fri and Sat in the evening AND 0.5 tablets every Wednesday in the evening. warfarin Yes [id number] Take 1 [facility] tablet 8-21 tablet by [facility] f 00:00: mouth [place] 00 every Medical Wednesday in [facility] the evening AND 1 tablet every in the evening AND 0.5 tablets every Mon, Wed, Fri and Sat in the evening AND 0.5 tablets every Wednesday in the evening. warfarin Yes [id number] Take 1 [facility] tablet 8-21 tablet by [facility] f 00:00: mouth [place] 00 every Medical Wednesday in [facility] the evening AND 1 tablet every day in the evening AND 0.5 tablets every Mon, Wed, Fri and Sat in the evening AND 0.5 tablets every Wednesday in the evening. warfarin Yes [id number] Take 1 [facility] tablet 8-21 tablet by [facility] f 00:00: mouth [place] 00 every Medical Wednesday in [facility] the evening AND 1 tablet every day in the evening AND 0.5 tablets every Mon, Wed, Fri and Sat in the evening AND 0.5 tablets every Wednesday in the evening. warfarin Yes [id number] Take 1 [facility] tablet 8-21 tablet by [facility] 00:00: mouth [place] 00 every Medical Wednesday in [facility] the evening AND 1 tablet every day in the evening AND 0.5 tablets every Mon, Wed, Fri and Sat in the evening AND 0.5 tablets every [facility] in the evening. warfarin Yes [id number] Take 1 [facility] tablet 8-21 tablet by [facility] f 00:00: mouth [place] 00 every Medical Wednesday in [facility] the evening AND 1 tablet every day in the evening AND 0.5 tablets every Mon, Wed, Fri and Sat in the evening AND 0.5 tablets every Wednesday in the evening. warfarin 5 Yes [id number] Take 1 [facility] tablet 8-21 tablet by [facility] f 00:00: mouth [place] 00 every Medical Wednesday in [facility] the evening AND 1 tablet every Thursday in the evening AND 0.5 tablets every Mon, Wed, Fri and Sat in the evening AND 0.5 tablets every [facility] in the evening. warfarin Yes [id number] Take 1 [facility] tablet 8-21 tablet by [facility] f 00:00: mouth [place] 00 every Medical Wednesday in [facility] the evening AND 1 tablet every ursday in the evening AND 0.5 tablets every Mon, Wed, Fri and Sat in the evening AND 0.5 tablets every [facility] in the evening. warfarin Yes [id number] Take 1 [facility] tablet 8-21 tablet by [facility] f 00:00: mouth [place] 00 every Medical Wednesday in [facility] the evening AND 1 tablet every day in the evening AND 0.5 tablets every Mon, Wed, Fri and Sat in the evening AND 0.5 tablets every [facility] in the evening. warfarin Yes [id number] Take 1 [facility] tablet 8-21 tablet by [facility] f 00:00: mouth [place] 00 every Medical Wednesday in [facility] the evening AND 1 tablet every ursday in the evening AND 0.5 tablets every Mon, Wed, Fri and Sat in the evening AND 0.5 tablets every [facility] in the evening. warfarin Yes [id number] Take 1 [facility] tablet 8-21 tablet by [facility] f 00:00: mouth [place] 00 every Medical Wednesday in [facility] the evening AND 1 tablet every day in the evening AND 0.5 tablets every Mon, Wed, Fri and Sat in the evening AND 0.5 tablets every Wednesday in the evening. warfarin Yes [id number] Take 1 [facility] tablet 8-21 tablet by [facility] 00:00: mouth [place] 00 every Medical Wednesday in [facility] the evening AND 1 tablet every Thursday in the evening AND 0.5 tablets every Mon, Wed, Fri and Sat in the evening AND 0.5 tablets every [facility] in the evening. warfarin Yes [id number] Take 1 [facility] tablet 8-21 tablet by [facility] 00:00: mouth [place] 00 every Medical Wednesday in [facility] the evening AND 1 tablet every day in the evening AND 0.5 tablets every Mon, Wed, Fri and Sat in the evening AND 0.5 tablets every [facility] in the evening. warfarin Yes [id number] Take 1 [facility] tablet 8-21 tablet by [facility] f 00:00: mouth [place] 00 every Medical Wednesday in [facility] the evening AND 1 tablet every day in the evening AND 0.5 tablets every Mon, Wed, Fri and Sat in the evening AND 0.5 tablets every [facility] in the evening. warfarin Yes [id number] Take 1 [facility] tablet 8-21 tablet by [facility] f 00:00: mouth [place] 00 every Medical Wednesday in [facility] the evening AND 1 tablet every day in the evening AND 0.5 tablets every Mon, Wed, Fri and Sat in the evening AND 0.5 tablets every Wednesday in the evening. warfarin Yes [id number] Take 1 [facility] tablet 8-21 tablet by [facility] f 00:00: mouth [place] 00 every Wednesday in [facility] the evening AND 1 tablet every day in the evening AND 0.5 tablets every Mon, Wed, Fri and Sat in the evening AND 0.5 tablets every Wednesday in the evening. warfarin Yes [id number] Take 1 [facility] tablet 8-21 tablet by [facility] 00:00: mouth [place] 00 every Medical Wednesday in [place] the evening AND 1 tablet every day in the evening AND 0.5 tablets every Mon, Wed, Fri and Sat in the evening AND 0.5 tablets every [facility] in the evening. warfarin Yes [id number] Take 1 [facility] tablet 8-21 tablet by [facility] 00:00: mouth [place] 00 every Medical Wednesday in [facility] the evening AND 1 tablet every day in the evening AND 0.5 tablets every Mon, Wed, Fri and Sat in the evening AND 0.5 tablets every [facility] in the evening. warfarin Yes [id number] Take 1 [facility] tablet 8-21 tablet by [facility] 00:00: mouth [place] 00 every Medical Wednesday in [place] the evening AND 1 tablet every day in the evening AND 0.5 tablets every Mon, Wed, Fri and Sat in the evening AND 0.5 tablets every [facility] in the evening. warfarin Yes [id number] Take 1 [facility] tablet 8-21 tablet by [facility] 00:00: mouth [place] 00 every Medical Wednesday in [facility] the evening AND 1 tablet every day in the evening AND 0.5 tablets every Mon, Wed, Fri and Sat in the evening AND 0.5 tablets every Wednesday in the evening. warfarin Yes [id number] Take 1 [facility] tablet 8-21 tablet by [facility] 00:00: mouth [place] 00 every Medical Wednesday in [facility] the evening AND 1 tablet every day in the evening AND 0.5 tablets every Mon, Wed, Fri and Sat in the evening AND 0.5 tablets every Wednesday in the evening. warfarin Yes [id number] Take 1 [facility] tablet 8-21 tablet by [facility] 00:00: mouth [place] 00 every Medical Wednesday in [facility] the evening AND 1 tablet every day in the evening AND 0.5 tablets every Mon, Wed, Fri and Sat in the evening AND 0.5 tablets every Wednesday in the evening. warfarin Yes [id number] Take 1 [facility] tablet 8-21 tablet by [facility] f 00:00: mouth [place] 00 every Medical Wednesday in [facility] the evening AND 1 tablet every in the evening AND 0.5 tablets every Mon, Wed, Fri and Sat in the evening AND 0.5 tablets every Wednesday in the evening. warfarin Yes [id number] Take 1 [facility] tablet 8-21 tablet by [facility] f 00:00: mouth [place] 00 every Medical Wednesday in [facility] the evening AND 1 tablet every day in the evening AND 0.5 tablets every Mon, Wed, Fri and Sat in the evening AND 0.5 tablets every Wednesday in the evening. warfarin Yes [id number] Take 1 [facility] tablet 8-21 tablet by [facility] f 00:00: mouth [place] 00 every Medical Wednesday in [facility] the evening AND 1 tablet every ursday in the evening AND 0.5 tablets every Mon, Wed, Fri and Sat in the evening AND 0.5 tablets every [facility] in the evening. warfarin Yes [id number] Take 1 [facility] tablet 8-21 tablet by [facility] f 00:00: mouth [place] 00 every Medical Yg in [facility] the evening AND 1 tablet every day in the evening AND 0.5 tablets every Mon, Wed, Fri and Sat in the evening AND 0.5 tablets every Wednesday in the evening. warfarin Yes [id number] Take 1 [facility] tablet 8-21 tablet by [facility] f 00:00: mouth [place] 00 every Medical Wednesday in [facility] the evening AND 1 tablet every in the evening AND 0.5 tablets every Mon, Wed, Fri and Sat in the evening AND 0.5 tablets every Wednesday in the evening. warfarin Yes [id number] Take 1 [facility] tablet 8-21 tablet by [facility] f 00:00: mouth [place] 00 every Medical Wednesday in [facility] the evening AND 1 tablet every day in the evening AND 0.5 tablets every Mon, Wed, Fri and Sat in the evening AND 0.5 tablets every Wednesday in the evening. warfarin Yes [id number] Take 1 [facility] tablet 8-21 tablet by [facility] f 00:00: mouth [place] 00 every Medical Wednesday in [facility] the evening AND 1 tablet every day in the evening AND 0.5 tablets every Mon, Wed, Fri and Sat in the evening AND 0.5 tablets every Wednesday in the evening. warfarin Yes [id number] Take 1 [facility] tablet 8-21 tablet by [facility] f 00:00: mouth [place] 00 every Medical Wednesday in [facility] the evening AND 1 tablet every day in the evening AND 0.5 tablets every Mon, Wed, Fri and Sat in the evening AND 0.5 tablets every [facility] in the evening. warfarin Yes [id number] Take 1 [facility] tablet 8-21 tablet by [facility] f 00:00: mouth [place] 00 every Medical Wednesday in [facility] the evening AND 1 tablet every day in the evening AND 0.5 tablets every Mon, Wed, Fri and Sat in the evening AND 0.5 tablets every Wednesday in the evening. warfarin 5 Yes [id number] Take 1 [facility] tablet 8-21 tablet by [facility] f 00:00: mouth [place] 00 every Medical Wednesday in [facility] the evening AND 1 tablet every Thursday in the evening AND 0.5 tablets every Mon, Wed, Fri and Sat in the evening AND 0.5 tablets every [facility] in the evening. warfarin Yes [id number] Take 1 [facility] tablet 8-21 tablet by [facility] f 00:00: mouth [place] 00 every Medical Wednesday in [facility] the evening AND 1 tablet every ursday in the evening AND 0.5 tablets every Mon, Wed, Fri and Sat in the evening AND 0.5 tablets every [facility] in the evening. warfarin Yes [id number] Take 1 [facility] tablet 8-21 tablet by [facility] f 00:00: mouth [place] 00 every Medical Wednesday in [facility] the evening AND 1 tablet every day in the evening AND 0.5 tablets every Mon, Wed, Fri and Sat in the evening AND 0.5 tablets every [facility] in the evening. warfarin Yes [id number] Take 1 [facility] tablet 8-21 tablet by [facility] f 00:00: mouth [place] 00 every Medical Wednesday in [facility] the evening AND 1 tablet every ursday in the evening AND 0.5 tablets every Mon, Wed, Fri and Sat in the evening AND 0.5 tablets every [facility] in the evening. warfarin Yes [id number] Take 1 [facility] tablet 8-21 tablet by [facility] f 00:00: mouth [place] 00 every Medical Wednesday in [facility] the evening AND 1 tablet every day in the evening AND 0.5 tablets every Mon, Wed, Fri and Sat in the evening AND 0.5 tablets every Wednesday in the evening. warfarin Yes [id number] Take 1 [facility] tablet 8-21 tablet by [facility] f 00:00: mouth [place] 00 every Medical Wednesday in [facility] the evening AND 1 tablet every Thursday in the evening AND 0.5 tablets every Mon, Wed, Fri and Sat in the evening AND 0.5 tablets every [facility] in the evening. warfarin Yes [id number] Take 1 [facility] tablet 8-21 tablet by [facility] 00:00: mouth [place] 00 every Medical Wednesday in [facility] the evening AND 1 tablet every day in the evening AND 0.5 tablets every Mon, Wed, Fri and Sat in the evening AND 0.5 tablets every [facility] in the evening. warfarin Yes [id number] Take 1 [facility] tablet 8-21 tablet by [facility] 00:00: mouth [place] 00 every Medical Wednesday in [facility] the evening AND 1 tablet every day in the evening AND 0.5 tablets every Mon, Wed, Fri and Sat in the evening AND 0.5 tablets every [facility] in the evening. warfarin Yes [id number] Take 1 [facility] tablet 8-21 tablet by [facility] f 00:00: mouth [place] 00 every Medical Wednesday in [facility] the evening AND 1 tablet every day in the evening AND 0.5 tablets every Mon, Wed, Fri and Sat in the evening AND 0.5 tablets every Wednesday in the evening. warfarin Yes [id number] Take 1 [facility] tablet 8-21 tablet by [facility] f 00:00: mouth [place] 00 every Wednesday in [facility] the evening AND 1 tablet every day in the evening AND 0.5 tablets every Mon, Wed, Fri and Sat in the evening AND 0.5 tablets every Wednesday in the evening. warfarin Yes [id number] Take 1 [facility] tablet 8-21 tablet by [facility] f 00:00: mouth [place] 00 every Medical Wednesday in [place] the evening AND 1 tablet every day in the evening AND 0.5 tablets every Mon, Wed, Fri and Sat in the evening AND 0.5 tablets every [facility] in the evening. warfarin Yes [id number] Take 1 [facility] tablet 8-21 tablet by [facility] 00:00: mouth [place] 00 every Medical Wednesday in [facility] the evening AND 1 tablet every day in the evening AND 0.5 tablets every Mon, Wed, Fri and Sat in the evening AND 0.5 tablets every [facility] in the evening. warfarin Yes [id number] Take 1 [facility] tablet 8-21 tablet by [facility] f 00:00: mouth [place] 00 every Medical Wednesday in [place] the evening AND 1 tablet every day in the evening AND 0.5 tablets every Mon, Wed, Fri and Sat in the evening AND 0.5 tablets every [facility] in the evening. warfarin Yes [id number] Take 1 [facility] tablet 8-21 tablet by [facility] f 00:00: mouth [place] 00 every Medical Wednesday in [facility] the evening AND 1 tablet every day in the evening AND 0.5 tablets every Mon, Wed, Fri and Sat in the evening AND 0.5 tablets every Wednesday in the evening. warfarin Yes [id number] Take 1 [facility] tablet 8-21 tablet by [facility] f 00:00: mouth [place] 00 every Medical Wednesday in [facility] the evening AND 1 tablet every day in the evening AND 0.5 tablets every Mon, Wed, Fri and Sat in the evening AND 0.5 tablets every Wednesday in the evening. warfarin Yes [id number] Take 1 [facility] tablet 8-21 tablet by [facility] f 00:00: mouth [place] 00 every Medical Wednesday in [facility] the evening AND 1 tablet every day in the evening AND 0.5 tablets every Mon, Wed, Fri and Sat in the evening AND 0.5 tablets every Wednesday in the evening. warfarin Yes [id number] Take 1 [facility] tablet 8-21 tablet by [facility] f 00:00: mouth [place] 00 every Medical Wednesday in [facility] the evening AND 1 tablet every in the evening AND 0.5 tablets every Mon, Wed, Fri and Sat in the evening AND 0.5 tablets every Wednesday in the evening. warfarin Yes [id number] Take 1 [facility] tablet 8-21 tablet by [facility] 00:00: mouth [place] 00 every Medical Wednesday in [facility] the evening AND 1 tablet every day in the evening AND 0.5 tablets every Mon, Wed, Fri and Sat in the evening AND 0.5 tablets every Wednesday in the evening. warfarin Yes [id number] Take 1 [facility] tablet 8-21 tablet by [facility] f 00:00: mouth [place] 00 every Medical Wednesday in [facility] the evening AND 1 tablet every ursday in the evening AND 0.5 tablets every Mon, Wed, Fri and Sat in the evening AND 0.5 tablets every [facility] in the evening. warfarin Yes [id number] Take 1 [facility] tablet 8-21 tablet by [facility] 00:00: mouth [place] 00 every Medical Yg in [facility] the evening AND 1 tablet every day in the evening AND 0.5 tablets every Mon, Wed, Fri and Sat in the evening AND 0.5 tablets every Wednesday in the evening. warfarin Yes [id number] Take 1 [facility] tablet 8-21 tablet by [facility] f 00:00: mouth [place] 00 every Medical Wednesday in [facility] the evening AND 1 tablet every in the evening AND 0.5 tablets every Mon, Wed, Fri and Sat in the evening AND 0.5 tablets every Wednesday in the evening. warfarin Yes [id number] Take 1 [facility] tablet 8-21 tablet by [facility] f 00:00: mouth [place] 00 every Medical Wednesday in [facility] the evening AND 1 tablet every day in the evening AND 0.5 tablets every Mon, Wed, Fri and Sat in the evening AND 0.5 tablets every Wednesday in the evening. warfarin Yes [id number] Take 1 [facility] tablet 8-21 tablet by [facility] f 00:00: mouth [place] 00 every Medical Wednesday in [facility] the evening AND 1 tablet every day in the evening AND 0.5 tablets every Mon, Wed, Fri and Sat in the evening AND 0.5 tablets every Wednesday in the evening. warfarin Yes [id number] Take 1 [facility] tablet 8-21 tablet by [facility] f 00:00: mouth [place] 00 every Medical Wednesday in [facility] the evening AND 1 tablet every day in the evening AND 0.5 tablets every Mon, Wed, Fri and Sat in the evening AND 0.5 tablets every [facility] in the evening. warfarin Yes [id number] Take 1 [facility] tablet 8-21 tablet by [facility] 00:00: mouth [place] 00 every Medical Wednesday in [facility] the evening AND 1 tablet every day in the evening AND 0.5 tablets every Mon, Wed, Fri and Sat in the evening AND 0.5 tablets every Wednesday in the evening. warfarin 5 Yes [id number] Take 1 [facility] tablet 8-21 tablet by [facility] f 00:00: mouth [place] 00 every Medical Wednesday in [facility] the evening AND 1 tablet every Thursday in the evening AND 0.5 tablets every Mon, Wed, Fri and Sat in the evening AND 0.5 tablets every [facility] in the evening. warfarin Yes [id number] Take 1 [facility] tablet 8-21 tablet by [facility] f 00:00: mouth [place] 00 every Medical Wednesday in [facility] the evening AND 1 tablet every ursday in the evening AND 0.5 tablets every Mon, Wed, Fri and Sat in the evening AND 0.5 tablets every [facility] in the evening. warfarin Yes [id number] Take 1 [facility] tablet 8-21 tablet by [facility] f 00:00: mouth [place] 00 every Medical Wednesday in [facility] the evening AND 1 tablet every day in the evening AND 0.5 tablets every Mon, Wed, Fri and Sat in the evening AND 0.5 tablets every [facility] in the evening. warfarin Yes [id number] Take 1 [facility] tablet 8-21 tablet by [facility] f 00:00: mouth [place] 00 every Medical Wednesday in [facility] the evening AND 1 tablet every ursday in the evening AND 0.5 tablets every Mon, Wed, Fri and Sat in the evening AND 0.5 tablets every [facility] in the evening. warfarin Yes [id number] Take 1 [facility] tablet 8-21 tablet by [facility] f 00:00: mouth [place] 00 every Medical Wednesday in [facility] the evening AND 1 tablet every day in the evening AND 0.5 tablets every Mon, Wed, Fri and Sat in the evening AND 0.5 tablets every Wednesday in the evening. warfarin Yes [id number] Take 1 [facility] tablet 8-21 tablet by [facility] f 00:00: mouth [place] 00 every Medical Wednesday in [facility] the evening AND 1 tablet every Thursday in the evening AND 0.5 tablets every Mon, Wed, Fri and Sat in the evening AND 0.5 tablets every [facility] in the evening. warfarin Yes [id number] Take 1 [facility] tablet 8-21 tablet by [facility] f 00:00: mouth [place] 00 every Medical Wednesday in [facility] the evening AND 1 tablet every day in the evening AND 0.5 tablets every Mon, Wed, Fri and Sat in the evening AND 0.5 tablets every [facility] in the evening. warfarin Yes [id number] Take 1 [facility] tablet 8-21 tablet by [facility] f 00:00: mouth [place] 00 every Medical Wednesday in [facility] the evening AND 1 tablet every day in the evening AND 0.5 tablets every Mon, Wed, Fri and Sat in the evening AND 0.5 tablets every [facility] in the evening. warfarin Yes [id number] Take 1 [facility] tablet 8-21 tablet by [facility] f 00:00: mouth [place] 00 every Medical Wednesday in [facility] the evening AND 1 tablet every day in the evening AND 0.5 tablets every Mon, Wed, Fri and Sat in the evening AND 0.5 tablets every Wednesday in the evening. warfarin Yes [id number] Take 1 [facility] tablet 8-21 tablet by [facility] f 00:00: mouth [place] 00 every Wednesday in [facility] the evening AND 1 tablet every day in the evening AND 0.5 tablets every Mon, Wed, Fri and Sat in the evening AND 0.5 tablets every Wednesday in the evening. warfarin Yes [id number] Take 1 [facility] tablet 8-21 tablet by [facility] f 00:00: mouth [place] 00 every Medical Wednesday in [place] the evening AND 1 tablet every day in the evening AND 0.5 tablets every Mon, Wed, Fri and Sat in the evening AND 0.5 tablets every [facility] in the evening. warfarin Yes [id number] Take 1 [facility] tablet 8-21 tablet by [facility] f 00:00: mouth [place] 00 every Medical Wednesday in [facility] the evening AND 1 tablet every day in the evening AND 0.5 tablets every Mon, Wed, Fri and Sat in the evening AND 0.5 tablets every [facility] in the evening. warfarin Yes [id number] Take 1 [facility] tablet 8-21 tablet by [facility] f 00:00: mouth [place] 00 every Medical Wednesday in [place] the evening AND 1 tablet every day in the evening AND 0.5 tablets every Mon, Wed, Fri and Sat in the evening AND 0.5 tablets every [facility] in the evening. warfarin Yes [id number] Take 1 [facility] tablet 8-21 tablet by [facility] o f 00:00: mouth [place] 00 every Medical Wednesday in Branch the evening AND 1 tablet every day in the evening AND 0.5 tablets every Mon, Wed, Fri and Sat in the evening AND 0.5 tablets every Wednesday in the evening. warfarin Yes [id number] Take 1 [facility] tablet [facility]-21 tablet by [facility] 00:00: mouth [place] 00 every Medical Wednesday in Branch the evening AND 1 tablet every day in the evening AND 0.5 tablets every Mon, Wed, Fri and Sat in the evening AND 0.5 tablets every Wednesday in the evening. warfarin Yes [id number] Take 1 [facility] tablet 8-21 tablet by [facility] 00:00: mouth [place] 00 every Medical Wednesday in Branch the evening AND 1 tablet every day in the evening AND 0.5 tablets every Mon, Wed, Fri and Sat in the evening AND 0.5 tablets every Wednesday in the evening. warfarin Yes [id number] Take 1 [facility] tablet 8-21 tablet by [facility] 00:00: mouth [place] 00 every Medical Wednesday in Branch the evening AND 1 tablet every in the evening AND 0.5 tablets every Mon, Wed, Fri and Sat in the evening AND 0.5 tablets every Wednesday in the evening. warfarin Yes [id number] Take 1 [facility] tablet 8-21 tablet by [facility] 00:00: mouth [place] 00 every Medical Wednesday in Branch the evening AND 1 tablet every day in the evening AND 0.5 tablets every Mon, Wed, Fri and Sat in the evening AND 0.5 tablets every Wednesday in the evening. warfarin Yes [id number] Take 1 [facility] tablet 8-21 tablet by [facility] 00:00: mouth [place] 00 every Medical Wednesday in Branch the evening AND 1 tablet every ursday in the evening AND 0.5 tablets every Mon, Wed, Fri and Sat in the evening AND 0.5 tablets every Joi in the evening. warfarin Yes [id number] Take 1 [facility] tablet 8-21 tablet by [facility] 00:00: mouth [place] 00 every Medical Yg in Branch the evening AND 1 tablet every day in the evening AND 0.5 tablets every Mon, Wed, Fri and Sat in the evening AND 0.5 tablets every Wednesday in the evening. warfarin Yes [id number] Take 1 [facility] tablet 8-21 tablet by [facility] 00:00: mouth [place] 00 every Medical Wednesday in Branch the evening AND 1 tablet every in the evening AND 0.5 tablets every Mon, Wed, Fri and Sat in the evening AND 0.5 tablets every Wednesday in the evening. warfarin Yes [id number] Take 1 [facility] tablet 8-21 tablet by [facility] 00:00: mouth [place] 00 every Medical Wednesday in Branch the evening AND 1 tablet every day in the evening AND 0.5 tablets every Mon, Wed, Fri and Sat in the evening AND 0.5 tablets every Wednesday in the evening. warfarin Yes [id number] Take 1 [facility] tablet 8-21 tablet by [facility] 00:00: mouth [place] 00 every Medical Wednesday in Branch the evening AND 1 tablet every day in the evening AND 0.5 tablets every Mon, Wed, Fri and Sat in the evening AND 0.5 tablets every Wednesday in the evening. warfarin Yes [id number] Take 1 [facility] tablet 8-21 tablet by [facility] 00:00: mouth [place] 00 every Medical Wednesday in Branch the evening AND 1 tablet every day in the evening AND 0.5 tablets every Mon, Wed, Fri and Sat in the evening AND 0.5 tablets every Joi in the evening. warfarin Yes [id number] Take 1 [facility] tablet 8-21 tablet by [facility] 00:00: mouth [place] 00 every Medical Wednesday in Branch the evening AND 1 tablet every day in the evening AND 0.5 tablets every Mon, Wed, Fri and Sat in the evening AND 0.5 tablets every Wednesday in the evening. warfarin 5 Yes [id number] Take 1 [facility] tablet 8-21 tablet by [facility] 00:00: mouth [place] 00 every Medical Wednesday in Branch the evening AND 1 tablet every Thursday in the evening AND 0.5 tablets every Mon, Wed, Fri and Sat in the evening AND 0.5 tablets every Joi in the evening. warfarin Yes [id number] Take 1 [facility] tablet 8-21 tablet by [facility] 00:00: mouth [place] 00 every Medical Wednesday in Branch the evening AND 1 tablet every ursday in the evening AND 0.5 tablets every Mon, Wed, Fri and Sat in the evening AND 0.5 tablets every Joi in the evening. warfarin Yes [id number] Take 1 [facility] tablet 8-21 tablet by [facility] 00:00: mouth [place] 00 every Medical Wednesday in Branch the evening AND 1 tablet every day in the evening AND 0.5 tablets every Mon, Wed, Fri and Sat in the evening AND 0.5 tablets every Joi in the evening. warfarin Yes [id number] Take 1 [facility] tablet 8-21 tablet by [facility] 00:00: mouth [place] 00 every Medical Wednesday in Branch the evening AND 1 tablet every ursday in the evening AND 0.5 tablets every Mon, Wed, Fri and Sat in the evening AND 0.5 tablets every Joi in the evening. warfarin Yes [id number] Take 1 [facility] tablet 8-21 tablet by [facility] 00:00: mouth [place] 00 every Medical Wednesday in Branch the evening AND 1 tablet every day in the evening AND 0.5 tablets every Mon, Wed, Fri and Sat in the evening AND 0.5 tablets every Wednesday in the evening. warfarin Yes [id number] Take 1 [facility] tablet 8-21 tablet by [facility] 00:00: mouth [place] 00 every Medical Wednesday in Branch the evening AND 1 tablet every Thursday in the evening AND 0.5 tablets every Mon, Wed, Fri and Sat in the evening AND 0.5 tablets every Joi in the evening. warfarin Yes [id number] Take 1 [facility] tablet 8-21 tablet by [facility] 00:00: mouth [place] 00 every Medical Wednesday in Branch the evening AND 1 tablet every day in the evening AND 0.5 tablets every Mon, Wed, Fri and Sat in the evening AND 0.5 tablets every Wednesday in the evening. warfarin 5 0 Yes [id number] Take 1 [facility] tablet 8-21 tablet by [facility] 00:00: mouth [place] 00 every Medical Wednesday in Branch the evening AND 1 tablet every in the evening AND 0.5 tablets every Wed, Wed, Wed and Sat in the evening AND 0.5 tablets every Wednesday in the evening. warfarin 5 0 Yes [id number] Take 1 [facility] tablet 8-21 tablet by [facility] 00:00: mouth [place] 00 every Medical Wednesday in Branch the evening AND 1 tablet every in the evening AND 0.5 tablets every Wed, Wed, Wed and Sat in the evening AND 0.5 tablets every Wednesday in the evening. TRAMADOL 50 2021-0 Yes 2745 TAKE 1 [facility] tablet 8-03 TABLET BY [facility] 00:00: MOUTH [place] 00 EVERY 8 Medical HOURS Branch NEEDED FOR PAIN INDICATION S: CHRONIC PAIN TRAMADOL 50 2021-0 Yes 2745 TAKE 1 [facility] tablet 8-03 TABLET BY [facility] 00:00: MOUTH [place] 00 EVERY 8 Medical HOURS Branch NEEDED FOR PAIN INDICATION S: CHRONIC PAIN TRAMADOL 50 2021-0 Yes 2745 TAKE 1 [facility] tablet 8-03 TABLET BY [facility] 00:00: MOUTH [place] 00 EVERY 8 Medical HOURS Branch NEEDED FOR PAIN INDICATION S: CHRONIC PAIN TRAMADOL 50 2021-0 Yes 2745 TAKE 1 [facility] tablet 8-03 TABLET BY [facility] 00:00: MOUTH [place] 00 EVERY 8 Medical HOURS Branch NEEDED FOR PAIN INDICATION S: CHRONIC PAIN TRAMADOL 50 2021-0 Yes 2745 TAKE 1 [facility] tablet 8-03 TABLET BY [facility] 00:00: MOUTH [place] 00 EVERY 8 Medical HOURS Branch NEEDED FOR PAIN INDICATION S: CHRONIC PAIN TRAMADOL 50 2021-0 Yes 2745 TAKE 1 [facility] tablet 8-03 TABLET BY [facility] 00:00: MOUTH [place] 00 EVERY 8 Medical HOURS Branch NEEDED FOR PAIN INDICATION S: CHRONIC PAIN TRAMADOL 50 2021-0 Yes 2745 TAKE 1 [facility] tablet 8-03 TABLET BY [facility] 00:00: MOUTH [place] 00 EVERY 8 Medical HOURS Branch NEEDED FOR PAIN INDICATION S: CHRONIC PAIN TRAMADOL 50 2021-0 Yes 2745 TAKE 1 [facility] tablet 8-03 TABLET BY [facility] 00:00: MOUTH [place] 00 EVERY 8 Medical HOURS Branch NEEDED FOR PAIN INDICATION S: CHRONIC PAIN TRAMADOL 50 2021-0 Yes 2745 TAKE 1 [facility] tablet 8-03 TABLET BY [facility] 00:00: MOUTH [place] 00 EVERY 8 Medical HOURS Branch NEEDED FOR PAIN INDICATION S: CHRONIC PAIN TRAMADOL 50 2021-0 Yes 2745 TAKE 1 [facility] tablet 8-03 TABLET BY [facility] 00:00: MOUTH [place] 00 EVERY 8 Medical HOURS Branch NEEDED FOR PAIN INDICATION S: CHRONIC PAIN TRAMADOL 50 2021-0 Yes 2745 TAKE 1 [facility] tablet 8-03 TABLET BY [facility] 00:00: MOUTH [place] 00 EVERY 8 Medical HOURS Branch NEEDED FOR PAIN INDICATION S: CHRONIC PAIN TRAMADOL 50 2021-0 Yes 2745 TAKE 1 [facility] tablet 8-03 TABLET BY [facility] 00:00: MOUTH [place] 00 EVERY 8 Medical HOURS Branch NEEDED FOR PAIN INDICATION S: CHRONIC PAIN TRAMADOL 50 2021-0 Yes 2745 TAKE 1 [facility] tablet 8-03 TABLET BY [facility] 00:00: MOUTH [place] 00 EVERY 8 Medical HOURS Branch NEEDED FOR PAIN INDICATION S: CHRONIC PAIN TRAMADOL 50 2021-0 Yes 2745 TAKE 1 [facility] tablet 8-03 TABLET BY [facility] 00:00: MOUTH [place] 00 EVERY 8 Medical HOURS Branch NEEDED FOR PAIN INDICATION S: CHRONIC PAIN TRAMADOL 50 2021-0 Yes 2745 TAKE 1 [facility] tablet 8-03 TABLET BY [facility] 00:00: MOUTH [place] 00 EVERY 8 Medical HOURS Branch NEEDED FOR PAIN INDICATION S: CHRONIC PAIN TRAMADOL 50 2021-0 Yes 2745 TAKE 1 [facility] tablet 8-03 TABLET BY [facility] 00:00: MOUTH [place] 00 EVERY 8 Medical HOURS Branch NEEDED FOR PAIN INDICATION S: CHRONIC PAIN TRAMADOL 50 2-0 Yes 2745 TAKE 1 [facility] tablet 8-03 TABLET BY [facility] 00:00: MOUTH [place] 00 EVERY 8 Medical HOURS Branch NEEDED FOR PAIN INDICATION S: CHRONIC PAIN TRAMADOL 50 2-0 Yes 2745 TAKE 1 [facility] tablet 8-03 TABLET BY [facility] 00:00: MOUTH [place] 00 EVERY 8 Medical HOURS Branch NEEDED FOR PAIN INDICATION S: CHRONIC PAIN TRAMADOL 50 2021-0 Yes 2745 TAKE 1 [facility] tablet 8-03 TABLET BY [facility] 00:00: MOUTH [place] 00 EVERY 8 Medical HOURS Branch NEEDED FOR PAIN INDICATION S: CHRONIC PAIN TRAMADOL 50 2021-0 Yes 2745 TAKE 1 [facility] tablet 8-03 TABLET BY [facility] 00:00: MOUTH [place] 00 EVERY 8 Medical HOURS Branch NEEDED FOR PAIN INDICATION S: CHRONIC PAIN TRAMADOL 50 2021-0 Yes 2745 TAKE 1 [facility] tablet 8-03 TABLET BY [facility] 00:00: MOUTH [place] 00 EVERY 8 Medical HOURS Branch NEEDED FOR PAIN INDICATION S: CHRONIC PAIN TRAMADOL 50 2021-0 Yes 2745 TAKE 1 [facility] tablet 8-03 TABLET BY [facility] 00:00: MOUTH [place] 00 EVERY 8 Medical HOURS Branch NEEDED FOR PAIN INDICATION S: CHRONIC PAIN TRAMADOL 50 2021-0 Yes 2745 TAKE 1 [facility] tablet 8-03 TABLET BY [facility] 00:00: MOUTH [place] 00 EVERY 8 Medical HOURS Branch NEEDED FOR PAIN INDICATION S: CHRONIC PAIN TRAMADOL 50 2021-0 Yes 2745 TAKE 1 [facility] tablet 8-03 TABLET BY [facility] 00:00: MOUTH [place] 00 EVERY 8 Medical HOURS Branch NEEDED FOR PAIN INDICATION S: CHRONIC PAIN TRAMADOL 50 2021-0 Yes 2745 TAKE 1 [facility] tablet 8-03 TABLET BY [facility] 00:00: MOUTH [place] 00 EVERY 8 Medical HOURS Branch NEEDED FOR PAIN INDICATION S: CHRONIC PAIN TRAMADOL 50 2021-0 Yes 2745 TAKE 1 [facility] tablet 8-03 TABLET BY [facility] 00:00: MOUTH [place] 00 EVERY 8 Medical HOURS Branch NEEDED FOR PAIN INDICATION S: CHRONIC PAIN TRAMADOL 50 2021-0 Yes 2745 TAKE 1 [facility] tablet 8-03 TABLET BY [facility] 00:00: MOUTH [place] 00 EVERY 8 Medical HOURS Branch NEEDED FOR PAIN INDICATION S: CHRONIC PAIN TRAMADOL 50 2-0 Yes 2745 TAKE 1 [facility] tablet 8-03 TABLET BY [facility] 00:00: MOUTH [place] 00 EVERY 8 Medical HOURS Branch NEEDED FOR PAIN INDICATION S: CHRONIC PAIN TRAMADOL 50 2-0 Yes 2745 TAKE 1 [facility] tablet 8-03 TABLET BY [facility] 00:00: MOUTH [place] 00 EVERY 8 Medical HOURS Branch NEEDED FOR PAIN INDICATION S: CHRONIC PAIN TRAMADOL 50 2021-0 Yes 2745 TAKE 1 [facility] tablet 8-03 TABLET BY [facility] 00:00: MOUTH [place] 00 EVERY 8 Medical HOURS Branch NEEDED FOR PAIN INDICATION S: CHRONIC PAIN TRAMADOL 50 2021-0 Yes 2745 TAKE 1 [facility] tablet 8-03 TABLET BY [facility] 00:00: MOUTH [place] 00 EVERY 8 Medical HOURS Branch NEEDED FOR PAIN INDICATION S: CHRONIC PAIN TRAMADOL 50 2021-0 Yes 2745 TAKE 1 [facility] tablet 8-03 TABLET BY [facility] 00:00: MOUTH [place] 00 EVERY 8 Medical HOURS Branch NEEDED FOR PAIN INDICATION S: CHRONIC PAIN TRAMADOL 50 2021-0 Yes 2745 TAKE 1 [facility] tablet 8-03 TABLET BY [facility] 00:00: MOUTH [place] 00 EVERY 8 Medical HOURS Branch NEEDED FOR PAIN INDICATION S: CHRONIC PAIN TRAMADOL 50 2021-0 Yes 2745 TAKE 1 [facility] tablet 8-03 TABLET BY [facility] 00:00: MOUTH [place] 00 EVERY 8 Medical HOURS Branch NEEDED FOR PAIN INDICATION S: CHRONIC PAIN TRAMADOL 50 2021-0 Yes 2745 TAKE 1 [facility] tablet 8-03 TABLET BY [facility] 00:00: MOUTH [place] 00 EVERY 8 Medical HOURS Branch NEEDED FOR PAIN INDICATION S: CHRONIC PAIN TRAMADOL 50 2-0 Yes 2745 TAKE 1 [facility] tablet 8-03 TABLET BY [facility] 00:00: MOUTH [place] 00 EVERY 8 Medical HOURS Branch NEEDED FOR PAIN INDICATION S: CHRONIC PAIN TRAMADOL 50 2-0 Yes 2745 TAKE 1 [facility] tablet 8-03 TABLET BY [facility] 00:00: MOUTH [place] 00 EVERY 8 Medical HOURS Branch NEEDED FOR PAIN INDICATION S: CHRONIC PAIN TRAMADOL 50 2-0 Yes 2745 TAKE 1 [facility] tablet 8-03 TABLET BY [facility] 00:00: MOUTH [place] 00 EVERY 8 Medical HOURS Branch NEEDED FOR PAIN INDICATION S: CHRONIC PAIN TRAMADOL 50 2-0 Yes 2745 TAKE 1 [facility] tablet 8-03 TABLET BY [facility] 00:00: MOUTH [place] 00 EVERY 8 Medical HOURS Branch NEEDED FOR PAIN INDICATION S: CHRONIC PAIN TRAMADOL 50 2-0 Yes 2745 TAKE 1 [facility] tablet 8-03 TABLET BY [facility] 00:00: MOUTH [place] 00 EVERY 8 Medical HOURS Branch NEEDED FOR PAIN INDICATION S: CHRONIC PAIN TRAMADOL 50 2021-0 Yes 2745 TAKE 1 [facility] tablet 8-03 TABLET BY [facility] 00:00: MOUTH [place] 00 EVERY 8 Medical HOURS Branch NEEDED FOR PAIN INDICATION S: CHRONIC PAIN TRAMADOL 50 2021-0 Yes 2745 TAKE 1 [facility] tablet 8-03 TABLET BY [facility] 00:00: MOUTH [place] 00 EVERY 8 Medical HOURS Branch NEEDED FOR PAIN INDICATION S: CHRONIC PAIN TRAMADOL 50 2021-0 Yes 2745 TAKE 1 [facility] tablet 8-03 TABLET BY [facility] 00:00: MOUTH [place] 00 EVERY 8 Medical HOURS Branch NEEDED FOR PAIN INDICATION S: CHRONIC PAIN TRAMADOL 50 2021-0 Yes 2745 TAKE 1 [facility] tablet 8-03 TABLET BY [facility] 00:00: MOUTH [place] 00 EVERY 8 Medical HOURS Branch NEEDED FOR PAIN INDICATION S: CHRONIC PAIN TRAMADOL 50 2021-0 Yes 2745 TAKE 1 [facility] tablet 8-03 TABLET BY [facility] 00:00: MOUTH [place] 00 EVERY 8 Medical HOURS Branch NEEDED FOR PAIN INDICATION S: CHRONIC PAIN TRAMADOL 50 2021-0 Yes 2745 TAKE 1 [facility] tablet 8-03 TABLET BY [facility] 00:00: MOUTH [place] 00 EVERY 8 Medical HOURS Branch NEEDED FOR PAIN INDICATION S: CHRONIC PAIN TRAMADOL 50 2-0 Yes 2745 TAKE 1 [facility] tablet 8-03 TABLET BY [facility] 00:00: MOUTH [place] 00 EVERY 8 Medical HOURS Branch NEEDED FOR PAIN INDICATION S: CHRONIC PAIN TRAMADOL 50 2-0 Yes 2745 TAKE 1 [facility] tablet 8-03 TABLET BY [facility] 00:00: MOUTH [place] 00 EVERY 8 Medical HOURS Branch NEEDED FOR PAIN INDICATION S: CHRONIC PAIN TRAMADOL 50 2-0 Yes 2745 TAKE 1 [facility] tablet 8-03 TABLET BY [facility] 00:00: MOUTH [place] 00 EVERY 8 Medical HOURS Branch NEEDED FOR PAIN INDICATION S: CHRONIC PAIN TRAMADOL 50 2-0 Yes 2745 TAKE 1 [facility] tablet 8-03 TABLET BY [facility] 00:00: MOUTH [place] 00 EVERY 8 Medical HOURS Branch NEEDED FOR PAIN INDICATION S: CHRONIC PAIN TRAMADOL 50 2-0 Yes 2745 TAKE 1 [facility] tablet 8-03 TABLET BY [facility] 00:00: MOUTH 00 EVERY 8 Medical HOURS Branch NEEDED FOR PAIN INDICATION S: CHRONIC PAIN TRAMADOL 50 2021-0 Yes 2745 TAKE 1 [facility] tablet 8- TABLET BY [facility] 00:00: MOUTH [place] 00 EVERY 8 Medical HOURS Branch NEEDED FOR PAIN INDICATION S: CHRONIC PAIN TRAMADOL 50 2021-0 Yes 2745 TAKE 1 [facility] tablet 8- TABLET BY [facility] 00:00: MOUTH 00 EVERY 8 Medical HOURS Branch NEEDED FOR PAIN INDICATION S: CHRONIC PAIN TRAMADOL 50 2021-0 202- No 2745 TAKE 1 [facility] tablet 01-21 12- TABLET BY [facility] 00:00: 00:00 MOUTH [place] 00 :00 EVERY 8 Medical HOURS Branch NEEDED FOR PAIN INDICATION S: CHRONIC PAIN midodrine 5 2021-0 Yes [id number] 5mg Take 1 [facility] tablet 7-05 tablet by [facility] 00:00: mouth (three) Medical times Branch daily. midodrine 5 2021- Yes [id number] 5mg Take 1 [facility] tablet 7-05 tablet by [facility] 00:00: mouth (three) Medical times Branch daily. midodrine 5 2021-0 Yes [id number] 5mg Take 1 [facility] tablet 7-05 tablet by [facility] 00:00: mouth (three) Medical times Branch daily. midodrine 5 2021-0 Yes [id number] 5mg Take 1 [facility] tablet 7-05 tablet by [facility] 00:00: mouth (three) Medical times Branch daily. midodrine 5 2021-0 Yes [id number] 5mg Take 1 [facility] tablet 7-05 tablet by [facility] 00:00: mouth (three) Medical times Branch daily. midodrine 5 2021-0 Yes [id number] 5mg Take 1 [facility] tablet 7-05 tablet by [facility] 00:00: mouth (three) Medical times Branch daily. midodrine 5 2021-0 Yes [id number] 5mg Take 1 [facility] tablet 7-05 tablet by [facility] 00:00: mouth (three) Medical times Branch daily. midodrine 5 2021-0 Yes [id number] 5mg Take 1 [facility] tablet 7-05 tablet by [facility] 00:00: mouth (three) Medical times Branch daily. midodrine 5 2021-0 Yes [id number] 5mg Take 1 [facility] tablet 7-05 tablet by [facility] 00:00: mouth (three) Medical times Branch daily. midodrine 5 2021-0 Yes [id number] 5mg Take 1 [facility] tablet 7-05 tablet by [facility] 00:00: mouth (three) Medical times Branch daily. midodrine 5 2021-0 Yes [id number] 5mg Take 1 [facility] tablet 7-05 tablet by [facility] 00:00: mouth (three) Medical times Branch daily. midodrine 5 2021-0 Yes [id number] 5mg Take 1 [facility] tablet 7-05 tablet by [facility] 00:00: mouth () Medical times Branch daily. midodrine 5 2021-0 Yes [id number] 5mg Take 1 [facility] tablet 7-05 tablet by [facility] 00:00: mouth () Medical times Branch daily. midodrine 5 2021-0 Yes [id number] 5mg Take 1 [facility] tablet 7-05 tablet by [facility] 00:00: mouth () Medical times Branch daily. midodrine 5 2021-0 Yes [id number] 5mg Take 1 [facility] tablet 7-05 tablet by [facility] 00:00: mouth (three) Medical times Branch daily. midodrine 5 2021-0 Yes [id number] 5mg Take 1 [facility] tablet 7-05 tablet by [facility] 00:00: mouth (three) Medical times Branch daily. midodrine 5 2021-0 Yes [id number] 5mg Take 1 [facility] tablet 7-05 tablet by [facility] 00:00: mouth (three) Medical times Branch daily. midodrine 5 2021-0 Yes [id number] 5mg Take 1 [facility] tablet 7-05 tablet by [facility] 00:00: mouth (three) Medical times Branch daily. midodrine 5 2021-0 Yes [id number] 5mg Take 1 [facility] tablet 7-05 tablet by [facility] 00:00: mouth (three) Medical times Branch daily. midodrine 5 2021-0 Yes [id number] 5mg Take 1 [facility] tablet 7-05 tablet by [facility] 00:00: mouth (three) Medical times Branch daily. midodrine 5 2021-0 Yes [id number] 5mg Take 1 [facility] tablet 7-05 tablet by [facility] 00:00: mouth (three) Medical times Branch daily. midodrine 5 2021-0 Yes [id number] 5mg Take 1 [facility] tablet 7-05 tablet by [facility] 00:00: mouth (three) Medical times Branch daily. midodrine 5 2021-0 Yes [id number] 5mg Take 1 [facility] tablet 7-05 tablet by [facility] 00:00: mouth () Medical times Branch daily. midodrine 5 2021-0 Yes [id number] 5mg Take 1 [facility] tablet 7-05 tablet by [facility] 00:00: mouth () Medical times Branch daily. midodrine 5 2021-0 Yes [id number] 5mg Take 1 [facility] tablet 7-05 tablet by [facility] 00:00: mouth () Medical times Branch daily. midodrine 5 2021-0 Yes [id number] 5mg Take 1 [facility] tablet 7-05 tablet by [facility] 00:00: mouth (three) Medical times Branch daily. midodrine 5 2021-0 Yes [id number] 5mg Take 1 [facility] tablet 7-05 tablet by [facility] 00:00: mouth (three) Medical times Branch daily. midodrine 5 2021-0 Yes [id number] 5mg Take 1 [facility] tablet 7-05 tablet by [facility] 00:00: mouth (three) Medical times Branch daily. midodrine 5 2021-0 Yes [id number] 5mg Take 1 [facility] tablet 7-05 tablet by [facility] 00:00: mouth (three) Medical times Branch daily. midodrine 5 2021-0 Yes [id number] 5mg Take 1 [facility] tablet 7-05 tablet by [facility] 00:00: mouth (three) Medical times Branch daily. midodrine 5 2021-0 Yes [id number] 5mg Take 1 [facility] tablet 7-05 tablet by [facility] 00:00: mouth (three) Medical times Branch daily. midodrine 5 2021-0 Yes [id number] 5mg Take 1 [facility] tablet 7-05 tablet by [facility] 00:00: mouth (three) Medical times Branch daily. midodrine 5 2021-0 Yes [id number] 5mg Take 1 [facility] tablet 7-05 tablet by [facility] 00:00: mouth (three) Medical times Branch daily. midodrine 5 2021-0 Yes [id number] 5mg Take 1 [facility] tablet 7-05 tablet by [facility] 00:00: mouth (three) Medical times Branch daily. midodrine 5 2021-0 Yes [id number] 5mg Take 1 [facility] tablet 7-05 tablet by [facility] 00:00: mouth (three) Medical times Branch daily. midodrine 5 2021-0 Yes [id number] 5mg Take 1 [facility] tablet 7-05 tablet by [facility] 00:00: mouth (three) Medical times Branch daily. midodrine 5 2021-0 Yes [id number] 5mg Take 1 [facility] tablet 7-05 tablet by [facility] 00:00: mouth (three) Medical times Branch daily. midodrine 5 2021-0 Yes [id number] 5mg Take 1 [facility] tablet 7-05 tablet by [facility] 00:00: mouth (three) Medical times Branch daily. midodrine 5 2021-0 Yes [id number] 5mg Take 1 [facility] tablet 7-05 tablet by [facility] 00:00: mouth (three) Medical times Branch daily. midodrine 5 2021-0 Yes [id number] 5mg Take 1 [facility] tablet 7-05 tablet by [facility] 00:00: mouth (three) Medical times Branch daily. midodrine 5 2021-0 Yes [id number] 5mg Take 1 [facility] tablet 7-05 tablet by [facility] 00:00: mouth 3 (three) Medical times Branch daily. midodrine 5 2021-0 Yes [id number] 5mg Take 1 [facility] tablet 7-05 tablet by [facility] 00:00: mouth (three) Medical times Branch daily. midodrine 5 2021-0 Yes [id number] 5mg Take 1 [facility] tablet 7-05 tablet by [facility] 00:00: mouth (three) Medical times Branch daily. midodrine 5 2021-0 Yes [id number] 5mg Take 1 [facility] tablet 7-05 tablet by [facility] 00:00: mouth (three) Medical times Branch daily. midodrine 5 2021-0 Yes [id number] 5mg Take 1 [facility] tablet 7-05 tablet by [facility] 00:00: mouth (three) Medical times Branch daily. midodrine 5 2021-0 Yes [id number] 5mg Take 1 [facility] tablet 7-05 tablet by [facility] 00:00: mouth (three) Medical times Branch daily. midodrine 5 2021-0 Yes [id number] 5mg Take 1 [facility] tablet 7-05 tablet by [facility] 00:00: mouth (three) Medical times Branch daily. midodrine 5 2021-0 Yes [id number] 5mg Take 1 [facility] tablet 7-05 tablet by [facility] 00:00: mouth (three) Medical times Branch daily. midodrine 5 2021-0 Yes [id number] 5mg Take 1 [facility] tablet 7-05 tablet by [facility] 00:00: mouth (three) Medical times Branch daily. midodrine 5 2021-0 Yes [id number] 5mg Take 1 [facility] tablet 7-05 tablet by [facility] 00:00: mouth (three) Medical times Branch daily. midodrine 5 2021-0 Yes [id number] 5mg Take 1 [facility] tablet 7-05 tablet by [facility] 00:00: mouth (three) Medical times Branch daily. midodrine 5 2021-0 Yes [id number] 5mg Take 1 [facility] tablet 7-05 tablet by [facility] 00:00: mouth (three) Medical times Branch daily. midodrine 5 2021-0 Yes [id number] 5mg Take 1 [facility] tablet 7-05 tablet by [facility] 00:00: mouth (three) Medical times Branch daily. midodrine 5 2021-0 Yes [id number] 5mg Take 1 [facility] tablet 7-05 tablet by [facility] 00:00: mouth (three) Medical times Branch daily. midodrine 5 2021-0 Yes [id number] 5mg Take 1 [facility] tablet 7-05 tablet by [facility] 00:00: mouth (three) Medical times Branch daily. midodrine 5 2021-0 Yes [id number] 5mg Take 1 [facility] tablet 7-05 tablet by [facility] 00:00: mouth (three) Medical times Branch daily. midodrine 5 2021-0 Yes [id number] 5mg Take 1 [facility] tablet 7-05 tablet by [facility] 00:00: mouth (three) Medical times Branch daily. midodrine 5 2021-0 Yes [id number] 5mg Take 1 [facility] tablet 7-05 tablet by [facility] 00:00: mouth (three) Medical times Branch daily. midodrine 5 2021-0 Yes [id number] 5mg Take 1 [facility] tablet 7-05 tablet by [facility] 00:00: mouth (three) Medical times Branch daily. midodrine 5 2021-0 Yes [id number] 5mg Take 1 [facility] tablet 7-05 tablet by [facility] 00:00: mouth (three) Medical times Branch daily. midodrine 5 2021-0 Yes [id number] 5mg Take 1 [facility] tablet 7-05 tablet by [facility] 00:00: mouth (three) Medical times Branch daily. midodrine 5 2021-0 Yes [id number] 5mg Take 1 [facility] tablet 7-05 tablet by [facility] 00:00: mouth (three) Medical times Branch daily. midodrine 5 2021-0 Yes [id number] 5mg Take 1 [facility] tablet 7-05 tablet by [facility] 00:00: mouth (three) Medical times Branch daily. midodrine 5 2021-0 Yes [id number] 5mg Take 1 [facility] tablet 7-05 tablet by [facility] 00:00: mouth (three) Medical times Branch daily. midodrine 5 2021-0 Yes [id number] 5mg Take 1 [facility] tablet 7-05 tablet by [facility] 00:00: mouth (three) Medical times Branch daily. midodrine 5 2021-0 Yes [id number] 5mg Take 1 [facility] tablet 7-05 tablet by [facility] 00:00: mouth (three) Medical times Branch daily. midodrine 5 2021-0 Yes [id number] 5mg Take 1 [facility] tablet 7-05 tablet by [facility] 00:00: mouth (three) Medical times Branch daily. midodrine 5 2021-0 Yes [id number] 5mg Take 1 [facility] tablet 7-05 tablet by [facility] f 00:00: mouth (three) Medical times Branch daily. midodrine 5 2021-0 Yes [id number] 5mg Take 1 [facility] mg tablet 7-05 tablet by [facility] f 00:00: mouth (three) Medical times Branch daily. midodrine 5 2021-0 Yes [id number] 5mg Take 1 [facility] mg tablet 7-05 tablet by [facility] o f 00:00: mouth (three) Medical times Branch daily. midodrine 5 2021-0 Yes [id number] 5mg Take 1 [facility] mg tablet 7-05 tablet by [facility] f 00:00: mouth (three) Medical times Branch daily. midodrine 5 2021-0 Yes [id number] 5mg Take 1 [facility] mg tablet 7-05 tablet by [facility] f 00:00: mouth (three) Medical times Branch daily. midodrine 5 2021-0 Yes [id number] 5mg Take 1 [facility] mg tablet 7-05 tablet by [facility] o f 00:00: mouth (three) Medical times Branch daily. midodrine 5 2021-0 Yes [id number] 5mg Take 1 [facility] mg tablet 7-05 tablet by [facility] f 00:00: mouth (three) Medical times Branch daily. midodrine 5 2021-0 Yes [id number] 5mg Take 1 [facility] mg tablet 7-05 tablet by [facility] f 00:00: mouth (three) Medical times Branch daily. midodrine 5 2021-0 Yes [id number] 5mg Take 1 [facility] mg tablet 7-05 tablet by [facility] f 00:00: mouth (three) Medical times Branch daily. midodrine 5 2021-0 Yes [id number] 5mg Take 1 [facility] mg tablet 7-05 tablet by [facility] o f 00:00: mouth (three) Medical times Branch daily. midodrine 5 2021-0 Yes [id number] 5mg Take 1 [facility] mg tablet 7-05 tablet by [facility] o f 00:00: mouth (three) Medical times Branch daily. midodrine 5 2021-0 Yes [id number] 5mg Take 1 [facility] mg tablet 7-05 tablet by [facility] o f 00:00: mouth (three) Medical times Branch daily. midodrine 5 2021-0 Yes [id number] 5mg Take 1 [facility] mg tablet 7-05 tablet by [facility] o f 00:00: mouth (three) Medical times Branch daily. midodrine 5 2021-0 Yes [id number] 5mg Take 1 [facility] mg tablet 7-05 tablet by [facility] f 00:00: mouth (three) Medical times Branch daily. midodrine 5 2021-0 Yes [id number] 5mg Take 1 [facility] mg tablet 7-05 tablet by [facility] f 00:00: mouth (three) Medical times Branch daily. midodrine 5 2021-0 Yes [id number] 5mg Take 1 [facility] mg tablet 7-05 tablet by [facility] f 00:00: mouth (three) Medical times Branch daily. midodrine 5 2021-0 Yes [id number] 5mg Take 1 [facility] mg tablet 7-05 tablet by [facility] f 00:00: mouth (three) Medical times Branch daily. midodrine 5 2021-0 Yes [id number] 5mg Take 1 [facility] mg tablet 7-05 tablet by [facility] f 00:00: mouth (three) Medical times Branch daily. midodrine 5 2021-0 Yes [id number] 5mg Take 1 [facility] mg tablet 7-05 tablet by [facility] f 00:00: mouth (three) Medical times Branch daily. midodrine 5 2021-0 Yes [id number] 5mg Take 1 [facility] mg tablet 7-05 tablet by [facility] f 00:00: mouth (three) Medical times Branch daily. midodrine 5 2021-0 Yes [id number] 5mg Take 1 [facility] mg tablet 7-05 tablet by [facility] f 00:00: mouth (three) Medical times Branch daily. midodrine 5 2021-0 Yes [id number] 5mg Take 1 [facility] mg tablet 7-05 tablet by [facility] f 00:00: mouth (three) Medical times Branch daily. midodrine 5 2021-0 Yes [id number] 5mg Take 1 [facility] mg tablet 7-05 tablet by [facility] f 00:00: mouth (three) Medical times Branch daily. midodrine 5 2021-0 Yes [id number] 5mg Take 1 [facility] mg tablet 7-05 tablet by [facility] f 00:00: mouth (three) Medical times Branch daily. midodrine 5 2021-0 Yes [id number] 5mg Take 1 [facility] mg tablet 7-05 tablet by [facility] o f 00:00: mouth (three) Medical times Branch daily. midodrine 5 2021-0 Yes [id number] 5mg Take 1 [facility] mg tablet 7-05 tablet by [facility] f 00:00: mouth (three) Medical times Branch daily. midodrine 5 2021-0 Yes [id number] 5mg Take 1 [facility] mg tablet 7-05 tablet by [facility] f 00:00: mouth (three) Medical times Branch daily. midodrine 5 2021-0 Yes [id number] 5mg Take 1 [facility] mg tablet 7-05 tablet by [facility] f 00:00: mouth (three) Medical times Branch daily. midodrine 5 2021-0 Yes [id number] 5mg Take 1 [facility] mg tablet 7-05 tablet by [facility] o f 00:00: mouth (three) Medical times Branch daily. midodrine 5 2021-0 Yes [id number] 5mg Take 1 [facility] mg tablet 7-05 tablet by [facility] f 00:00: mouth (three) Medical times Branch daily. midodrine 5 2021-0 Yes [id number] 5mg Take 1 [facility] mg tablet 7-05 tablet by [facility] o f 00:00: mouth (three) Medical times Branch daily. midodrine 5 2021-0 Yes [id number] 5mg Take 1 [facility] mg tablet 7-05 tablet by [facility] f 00:00: mouth (three) Medical times Branch daily. midodrine 5 2021-0 Yes [id number] 5mg Take 1 [facility] mg tablet 7-05 tablet by [facility] f 00:00: mouth (three) Medical times Branch daily. midodrine 5 2021-0 Yes [id number] 5mg Take 1 [facility] mg tablet 7-05 tablet by [facility] f 00:00: mouth (three) Medical times Branch daily. midodrine 5 2021-0 Yes [id number] 5mg Take 1 [facility] mg tablet 7-05 tablet by [facility] f 00:00: mouth (three) Medical times Branch daily. midodrine 5 2021-0 Yes [id number] 5mg Take 1 [facility] mg tablet 7-05 tablet by [facility] f 00:00: mouth (three) Medical times Branch daily. midodrine 5 2021-0 Yes [id number] 5mg Take 1 [facility] mg tablet 7-05 tablet by [facility] f 00:00: mouth (three) Medical times Branch daily. midodrine 5 2021-0 Yes [id number] 5mg Take 1 [facility] mg tablet 7-05 tablet by [facility] o f 00:00: mouth (three) Medical times Branch daily. midodrine 5 2021-0 Yes [id number] 5mg Take 1 [facility] mg tablet 7-05 tablet by [facility] o f 00:00: mouth (three) Medical times Branch daily. midodrine 5 2021-0 Yes [id number] 5mg Take 1 [facility] mg tablet 7-05 tablet by [facility] o f 00:00: mouth (three) Medical times Branch daily. midodrine 5 2021-0 Yes [id number] 5mg Take 1 [facility] mg tablet 7-05 tablet by [facility] o f 00:00: mouth (three) Medical times Branch daily. midodrine 5 2021-0 Yes [id number] 5mg Take 1 [facility] mg tablet 7-05 tablet by [facility] o f 00:00: mouth (three) Medical times Branch daily. midodrine 5 2021-0 Yes [id number] 5mg Take 1 [facility] mg tablet 7-05 tablet by [facility] o f 00:00: mouth (three) Medical times Branch daily. midodrine 5 2021-0 Yes [id number] 5mg Take 1 [facility] mg tablet 7-05 tablet by [facility] o f 00:00: mouth (three) Medical times Branch daily. midodrine 5 2021-0 Yes [id number] 5mg Take 1 [facility] mg tablet 7-05 tablet by [facility] o f 00:00: mouth (three) Medical times Branch daily. midodrine 5 2021-0 Yes [id number] 5mg Take 1 [facility] mg tablet 7-05 tablet by [facility] o f 00:00: mouth (three) Medical times Branch daily. midodrine 5 2021-0 Yes [id number] 5mg Take 1 [facility] mg tablet 7-05 tablet by [facility] f 00:00: mouth (three) Medical times Branch daily. midodrine 5 2021-0 Yes [id number] 5mg Take 1 [facility] mg tablet 7-05 tablet by [facility] o f 00:00: mouth (three) Medical times Branch daily. midodrine 5 2021-0 Yes [id number] 5mg Take 1 [facility] mg tablet 7-05 tablet by [facility] o f 00:00: mouth (three) Medical times Branch daily. midodrine 5 2021-0 Yes [id number] 5mg Take 1 [facility] mg tablet 7-05 tablet by [facility] o f 00:00: mouth (three) Medical times Branch daily. midodrine 5 2021-0 Yes [id number] 5mg Take 1 [facility] mg tablet 7-05 tablet by [facility] o f 00:00: mouth (three) Medical times Branch daily. midodrine 5 2021-0 Yes [id number] 5mg Take 1 [facility] mg tablet 7-05 tablet by [facility] o f 00:00: mouth (three) Medical times Branch daily. midodrine 5 2021-0 Yes [id number] 5mg Take 1 [facility] mg tablet 7-05 tablet by [facility] f 00:00: mouth (three) Medical times Branch daily. midodrine 5 2021-0 Yes [id number] 5mg Take 1 [facility] mg tablet 7-05 tablet by [facility] f 00:00: mouth (three) Medical times Branch daily. midodrine 5 2021-0 Yes [id number] 5mg Take 1 [facility] mg tablet 7-05 tablet by [facility] o f 00:00: mouth 3 00 (three) Medical times Branch daily. midodrine 5 2021-0 Yes [id number] 5mg Take 1 [facility] mg tablet 7-05 tablet by [facility] o f 00:00: mouth 3 [place] 00 (three) Medical times Branch daily. midodrine 5 2021-0 Yes [id number] 5mg Take 1 [facility] mg tablet 7-05 tablet by [facility] o f 00:00: mouth 3 [place] (three) Medical times Branch daily. midodrine 5 2021-0 Yes [id number] 5mg Take 1 [facility] mg tablet 7-05 tablet by [facility] o f 00:00: mouth 3 (three) Medical times Branch daily. midodrine 5 2021-0 Yes [id number] 5mg Take 1 [facility] mg tablet 7-05 tablet by [facility] o f 00:00: mouth 3 (three) Medical times Branch daily. midodrine 5 2021-0 Yes [id number] 5mg Take 1 [facility] mg tablet 7-05 tablet by [facility] f 00:00: mouth 3 (three) Medical times Branch daily. bumetanide 0 Yes [id number] 2mg Take 1 [facility] 2 mg tablet 5-26 tablet by [facility] of 00:00: mouth [place] 00 every Medical morning Branch and evening. bumetanide 0 Yes [id number] 2mg Take 1 [facility] 2 mg tablet 5-26 tablet by [facility] of 00:00: mouth [place] 00 every Medical morning Branch and evening. bumetanide 0 Yes [id number] 2mg Take 1 [facility] 2 mg tablet 5-26 tablet by [facility] of 00:00: mouth [place] 00 every Medical morning Branch and evening. bumetanide 0 Yes [id number] 2mg Take 1 [facility] 2 mg tablet 5-26 tablet by [facility] of 00:00: mouth [place] 00 every Medical morning Branch and evening. bumetanide 0 Yes [id number] 2mg Take 1 [facility] 2 mg tablet 5-26 tablet by [facility] of 00:00: mouth [place] 00 every Medical morning Branch and evening. bumetanide 2021-0 2021- No [id number] 2mg Take 1 [facility] 2 mg tablet 5-26 09-20 tablet by it y of 00:00: 00:00 mouth [place] 00 :00 every Medical morning Branch and evening. ferrous 2021-0 Yes [id number] 324mg Take 1 [facility] vers gluconate 5-25 tablet by ity o f 324 mg 00:00: mouth [place] (37.5 mg 00 daily. Medical iron) Branch tablet KCL 20 mEq 2021-0 Yes [id number] 20meq Take 1 [facility] tablet 5-25 tablet by [facility] of 00:00: mouth [place] 00 daily. Medical Branch ferrous 2021-0 Yes [id number] 324mg Take 1 [facility] vers gluconate 5-25 tablet by ity o f 324 mg 00:00: mouth [place] (37.5 mg 00 daily. Medical iron) Branch tablet KCL 20 mEq 2021-0 Yes [id number] 20meq Take 1 [facility] tablet 5-25 tablet by [facility] of 00:00: mouth [place] 00 daily. Medical Branch ferrous 2021-0 Yes [id number] 324mg Take 1 [facility] vers gluconate 5-25 tablet by it[facility] o f 324 mg 00:00: mouth [place] (37.5 mg 00 daily. Medical iron) Branch tablet KCL 20 mEq 2021-0 Yes [id number] 20meq Take 1 [facility] tablet 5-25 tablet by [facility] of 00:00: mouth [place] 00 daily. Medical Branch ferrous 2021-0 Yes [id number] 324mg Take 1 [facility] vers gluconate 5-25 tablet by ity o f 324 mg 00:00: mouth [place] (37.5 mg 00 daily. Medical iron) Branch tablet ferrous 2021-0 Yes [id number] 324mg Take 1 [facility] vers gluconate 5-25 tablet by ity o f 324 mg 00:00: mouth [place] (37.5 mg 00 daily. Medical iron) Branch tablet ferrous 2021-0 Yes [id number] 324mg Take 1 [facility] vers gluconate 5-25 tablet by ity o f 324 mg 00:00: mouth [place] (37.5 mg 00 daily. Medical iron) Branch tablet ferrous 2021-0 Yes [id number] 324mg Take 1 [facility] vers gluconate 5-25 tablet by ity o f 324 mg 00:00: mouth [place] (37.5 mg 00 daily. Medical iron) Branch tablet ferrous 2021-0 Yes [id number] 324mg Take 1 [facility] vers gluconate 5-25 tablet by [facility] o f 324 mg 00:00: mouth [place] (37.5 mg 00 daily. Medical iron) Branch tablet ferrous Yes [id number] 324mg Take 1 [facility] vers gluconate 5-25 tablet by ity o f 324 mg 00:00: mouth [place] (37.5 mg 00 daily. Medical iron) Branch tablet ferrous Yes [id number] 324mg Take 1 [facility] vers gluconate 5-25 tablet by ity o f 324 mg 00:00: mouth [place] (37.5 mg 00 daily. Medical iron) Branch tablet ferrous Yes [id number] 324mg Take 1 [facility] vers gluconate 5-25 tablet by ity o f 324 mg 00:00: mouth [place] (37.5 mg 00 daily. Medical iron) Branch tablet ferrous Yes [id number] 324mg Take 1 [facility] vers gluconate 5-25 tablet by ity o f 324 mg 00:00: mouth [place] (37.5 mg 00 daily. Medical iron) Branch tablet ferrous 2021- No [id number] 324mg Take 1 [facility] devi gluconate 5-25 10-04 tablet by ity of 324 mg 00:00: 00:00 mouth [place] (37.5 mg 00 :00 daily. Medical iron) Branch tablet ferrous 2021- No [id number] 324mg Take 1 [facility] devi gluconate 5-25 10-04 tablet by ity of 324 mg 00:00: 00:00 mouth [place] (37.5 mg 00 :00 daily. Medical iron) Branch tablet KCL 20 mEq 2021- No [id number] 20meq Take 1 [facility] tablet 5-25 09-19 tablet by ity of 00:00: 00:00 mouth [place] 00 :00 daily. Medical Branch KCL 20 mEq 2021- No [id number] 20meq Take 1 [facility] tablet 5-25 09-19 tablet by ity of 00:00: 00:00 mouth [place] 00 :00 daily. Medical Branch carvediloL Yes [id number] 3.125mg Take 1 [facility] 3.125 mg 4-27 9100 tablet by ity of tablet 00:00: mouth 2 [place] 00 (two) Medical times Branch daily with meals. carvediloL Yes [id number] 3.125mg Take 1 [facility] 3.125 mg 4-27 9100 tablet by ity of tablet 00:00: mouth (two) Medical times Branch daily with meals. carvediloL 2021-0 Yes [id number] 3.125mg Take 1 [facility] 3.125 mg 4-27 9100 tablet by ity of tablet 00:00: mouth (two) Medical times Branch daily with meals. carvediloL 2021-0 Yes [id number] 3.125mg Take 1 [facility] 3.125 mg 4-27 9100 tablet by ity of tablet 00:00: mouth (two) Medical times Branch daily with meals. carvediloL 2021-0 Yes [id number] 3.125mg Take 1 [facility] 3.125 mg 4-27 9100 tablet by it[facility] of tablet 00:00: mouth (two) Medical times Branch daily with meals. carvediloL 0 Yes [id number] 3.125mg Take 1 [facility] 3.125 mg 4-27 9100 tablet by ity of tablet 00:00: mouth (two) Medical times Branch daily with meals. carvediloL 2021-0 Yes [id number] 3.125mg Take 1 [facility] 3.125 mg 4-27 9100 tablet by ity of tablet 00:00: mouth (two) Medical times Branch daily with meals. carvediloL 2021-0 Yes [id number] 3.125mg Take 1 [facility] 3.125 mg 4-27 9100 tablet by ity of tablet 00:00: mouth (two) Medical times Branch daily with meals. carvediloL 2021-0 Yes [id number] 3.125mg Take 1 [facility] 3.125 mg 4-27 9100 tablet by ity of tablet 00:00: mouth (two) Medical times Branch daily with meals. carvediloL 2021-0 Yes [id number] 3.125mg Take 1 [facility] 3.125 mg 4-27 9100 tablet by ity of tablet 00:00: mouth (two) Medical times Branch daily with meals. carvediloL 2021-0 Yes [id number] 3.125mg Take 1 [facility] 3.125 mg 4-27 9100 tablet by ity of tablet 00:00: mouth (two) Medical times Branch daily with meals. carvediloL 2021-0 Yes [id number] 3.125mg Take 1 [facility] 3.125 mg 4-27 9100 tablet by ity of tablet 00:00: mouth (two) Medical times Branch daily with meals. carvediloL 2021-0 Yes [id number] 3.125mg Take 1 [facility] 3.125 mg 4-27 9100 tablet by it[facility] of tablet 00:00: mouth (two) Medical times Branch daily with meals. carvediloL 2021-0 Yes [id number] 3.125mg Take 1 [facility] 3.125 mg 4-27 9100 tablet by ity of tablet 00:00: mouth (two) Medical times Branch daily with meals. carvediloL 2021-0 Yes [id number] 3.125mg Take 1 [facility] 3.125 mg 4-27 9100 tablet by ity of tablet 00:00: mouth (two) Medical times Branch daily with meals. carvediloL 2021-0 Yes [id number] 3.125mg Take 1 [facility] 3.125 mg 4-27 9100 tablet by ity of tablet 00:00: mouth (two) Medical times Branch daily with meals. carvediloL 2021-0 Yes [id number] 3.125mg Take 1 [facility] 3.125 mg 4-27 9100 tablet by ity of tablet 00:00: mouth (two) Medical times Branch daily with meals. carvediloL 2021-0 Yes [id number] 3.125mg Take 1 [facility] 3.125 mg 4-27 9100 tablet by ity of tablet 00:00: mouth (two) Medical times Branch daily with meals. carvediloL 2021-0 Yes [id number] 3.125mg Take 1 [facility] 3.125 mg 4-27 9100 tablet by ity of tablet 00:00: mouth (two) Medical times Branch daily with meals. carvediloL 2021-0 Yes [id number] 3.125mg Take 1 [facility] 3.125 mg 4-27 9100 tablet by ity of tablet 00:00: mouth (two) Medical times Branch daily with meals. carvediloL Yes [id number] 3.125mg Take 1 [facility] 3.125 mg 4-27 9100 tablet by ity of tablet 00:00: mouth 2 [place] (two) Medical times Branch daily with meals. carvediloL Yes [id number] 3.125mg Take 1 [facility] 3.125 mg 4-27 9100 tablet by ity of tablet 00:00: mouth 2 [place] (two) Medical times Branch daily with meals. carvediloL Yes [id number] 3.125mg Take 1 [facility] 3.125 mg 4-27 9100 tablet by ity of tablet 00:00: mouth 2 [place] (two) Medical times Branch daily with meals. carvediloL Yes [id number] 3.125mg Take 1 [facility] 3.125 mg 4-27 9100 tablet by ity of tablet 00:00: mouth 2 [place] (two) Medical times Branch daily with meals. carvediloL Yes [id number] 3.125mg Take 1 [facility] 3.125 mg 4-27 9100 tablet by ity of tablet 00:00: mouth 2 [place] (two) Medical times Branch daily with meals. carvediloL 2021- No [id number] 3.125mg Take 1 [facility] 3.125 mg 4-27 - 9100 tablet by ity o f tablet 00:00: 00:00 mouth 2 [place] 00 :00 (two) Medical times Branch daily with meals. carvediloL 2021- No [id number] 3.125mg Take 1 [facility] 3.125 mg 4-27 - 9100 tablet by ity o f tablet 00:00: 00:00 mouth 2 [place] 00 :00 (two) Medical times Branch daily with meals. Walker Yes [id number] Use as [facility] ers (ULTRA-LIGH 4-25 directed ity of T ROLLATOR) 00:00: [place] [address] Medical Branch Walker 2021-0 Yes [id number] Use as [facility] ers (ULTRA-LIGH 4-25 directed ity of T ROLLATOR) 00:00: [place] [address] Medical Branch Trip 2021-0 Yes [id number] Use as [facility] ers (ULTRA-LIGH 4-25 directed ity of T ROLLATOR) 00:00: [facility] 00 Medical Branch Trip 2021- No [id number] Use as [facility] vers (ULTRA-LIGH 10-13 directed ity of T ROLLATOR) 00:00: 00:00 [facility] 00 :00 Medical Branch Trip 2021-0 2021- No [id number] Use as [facility] vers (ULTRA-LIGH 10-13 directed ity of T ROLLATOR) 00:00: 00:00 [facility] 00 :00 Medical Branch sevelamer 2021- No [id number] 800mg Take 1 [facility] 800 mg 4-17 10-15 tablet by ity of tablet 00:00: 04:59 mouth 3 [place] 00 :00 (three) Medical times Branch daily with meals for 180 days. sevelamer 2021- No [id number] 800mg Take 1 [facility] 800 mg 4-17 10-15 tablet by ity of tablet 00:00: 04:59 mouth 3 [place] 00 :00 (three) Medical times Branch daily with meals for 180 days. sevelamer 2021- No [id number] 800mg Take 1 [facility] 800 mg 4-17 10-15 tablet by ity of tablet 00:00: 04:59 mouth 3 [place] 00 :00 (three) Medical times Branch daily with meals for 180 days. sevelamer 2021- No [id number] 800mg Take 1 [facility] 800 mg 4-17 10-15 tablet by ity of tablet 00:00: 04:59 mouth 3 [place] 00 :00 (three) Medical times Branch daily with meals for 180 days. sevelamer 2021- No [id number] 800mg Take 1 [facility] 800 mg 4-17 10-15 tablet by ity of tablet 00:00: 04:59 mouth 3 [place] 00 :00 (three) Medical times Branch daily with meals for 180 days. sevelamer 2021-2021- No [id number] 800mg Take 1 [facility] 800 mg 4-17 10-15 tablet by ity of tablet 00:00: 04:59 mouth 3 [place] 00 :00 (three) Medical times Branch daily with meals for 180 days. sevelamer 2021-0 2- No [id number] 800mg Take 1 [facility] 800 mg 4-17 10-15 tablet by ity of tablet 00:00: 04:59 mouth 3 [place] 00 :00 (three) Medical times Branch daily with meals for 180 days. sevelamer 2021-0 2021- No [id number] 800mg Take 1 [facility] 800 mg 4-17 10-15 tablet by ity of tablet 00:00: 04:59 mouth 3 [place] 00 :00 (three) Medical times Branch daily with meals for 180 days. sevelamer 2021-2021- No [id number] 800mg Take 1 [facility] 800 mg 4-17 10-15 tablet by ity of tablet 00:00: 04:59 mouth 3 [place] 00 :00 (three) Medical times Branch daily with meals for 180 days. sevelamer 2021-2021- No [id number] 800mg Take 1 [facility] 800 mg 4-17 10-15 tablet by ity of tablet 00:00: 04:59 mouth 3 [place] 00 :00 (three) Medical times Branch daily with meals for 180 days. sevelamer 2021-2021- No [id number] 800mg Take 1 [facility] 800 mg 4-17 10-15 tablet by ity of tablet 00:00: 04:59 mouth 3 [place] 00 :00 (three) Medical times Branch daily with meals for 180 days. sevelamer 2021-2021- No [id number] 800mg Take 1 [facility] 800 mg 4-17 10-15 tablet by ity of tablet 00:00: 04:59 mouth 3 [place] 00 :00 (three) Medical times Branch daily with meals for 180 days. sevelamer 2021-0 2021- No [id number] 800mg Take 1 [facility] 800 mg 4-17 10-15 tablet by ity of tablet 00:00: 04:59 mouth 3 [place] 00 :00 (three) Medical times Branch daily with meals for 180 days. sevelamer 2021-0 2021- No [id number] 800mg Take 1 [facility] 800 mg 4-17 10-15 tablet by ity of tablet 00:00: 04:59 mouth 3 [place] 00 :00 (three) Medical times Branch daily with meals for 180 days. sevelamer 2021-0 2021- No [id number] 800mg Take 1 [facility] 800 mg 4-17 10-06 tablet by ity of tablet 00:00: 00:00 mouth 3 [place] 00 :00 (three) Medical times Branch daily with meals for 180 days. levocetiriz 2022-0 Yes [id number] 5mg Take 1 [facility] ine 5 mg 4-04 tablet by ity of tablet 00:00: mouth [place] 00 every Medical evening. Branch levocetiriz 2022-0 Yes [id number] 5mg Take 1 [facility] ine 5 mg 4-04 tablet by ity of tablet 00:00: mouth [place] 00 every Medical evening. Branch levocetiriz 2022-0 Yes [id number] 5mg Take 1 [facility] ine 5 mg 4-04 tablet by ity of tablet 00:00: mouth [place] 00 every Medical evening. Branch levocetiriz 2022-0 Yes [id number] 5mg Take 1 [facility] ine 5 mg 4-04 tablet by ity of tablet 00:00: mouth [place] 00 every Medical evening. Branch levocetiriz 2022-0 Yes [id number] 5mg Take 1 [facility] ine 5 mg 4-04 tablet by ity of tablet 00:00: mouth [place] 00 every Medical evening. Branch levocetiriz 2022-0 Yes [id number] 5mg Take 1 [facility] ine 5 mg 4-04 tablet by ity of tablet 00:00: mouth [place] 00 every Medical evening. Branch levocetiriz 2-0 Yes [id number] 5mg Take 1 [facility] ine 5 mg 4-04 tablet by ity of tablet 00:00: mouth [place] 00 every Medical evening. Branch levocetiriz 2022-0 Yes [id number] 5mg Take 1 [facility] ine 5 mg 4-04 tablet by ity of tablet 00:00: mouth [place] 00 every Medical evening. Branch levocetiriz 2022-0 Yes [id number] 5mg Take 1 [facility] ine 5 mg 4-04 tablet by ity of tablet 00:00: mouth [place] 00 every Medical evening. Branch levocetiriz 2022-0 Yes [id number] 5mg Take 1 [facility] ine 5 mg 4-04 tablet by ity of tablet 00:00: mouth [place] 00 every Medical evening. Branch levocetiriz 2022-0 Yes [id number] 5mg Take 1 [facility] ine 5 mg 4-04 tablet by ity of tablet 00:00: mouth [place] 00 every Medical evening. Branch levocetiriz 2022-0 Yes [id number] 5mg Take 1 [facility] ine 5 mg 4-04 tablet by ity of tablet 00:00: mouth [place] 00 every Medical evening. Branch levocetiriz 2022-0 Yes [id number] 5mg Take 1 [facility] ine 5 mg 4-04 tablet by ity of tablet 00:00: mouth [place] 00 every Medical evening. Branch levocetiriz 2-0 Yes [id number] 5mg Take 1 [facility] ine 5 mg 4-04 tablet by ity of tablet 00:00: mouth [place] 00 every Medical evening. Branch levocetiriz 2-0 Yes [id number] 5mg Take 1 [facility] ine 5 mg 4-04 tablet by ity of tablet 00:00: mouth [place] 00 every Medical evening. Branch levocetiriz 2-0 Yes [id number] 5mg Take 1 [facility] ine 5 mg 4-04 tablet by ity of tablet 00:00: mouth [place] 00 every Medical evening. Branch levocetiriz 2-0 Yes [id number] 5mg Take 1 [facility] ine 5 mg 4-04 tablet by ity of tablet 00:00: mouth [place] 00 every Medical evening. Branch levocetiriz 2-0 Yes [id number] 5mg Take 1 [facility] ine 5 mg 4-04 tablet by ity of tablet 00:00: mouth [place] 00 every Medical evening. Branch levocetiriz 2-0 Yes [id number] 5mg Take 1 [facility] ine 5 mg 4-04 tablet by ity of tablet 00:00: mouth [place] 00 every Medical evening. Branch levocetiriz 2-0 Yes [id number] 5mg Take 1 [facility] ine 5 mg 4-04 tablet by ity of tablet 00:00: mouth [place] 00 every Medical evening. Branch levocetiriz 2022-0 Yes [id number] 5mg Take 1 [facility] ine 5 mg 4-04 tablet by ity of tablet 00:00: mouth [place] 00 every Medical evening. Branch levocetiriz 2022-0 Yes [id number] 5mg Take 1 [facility] ine 5 mg 4-04 tablet by ity of tablet 00:00: mouth [place] 00 every Medical evening. Branch levocetiriz 2022-0 Yes [id number] 5mg Take 1 [facility] ine 5 mg 4-04 tablet by ity of tablet 00:00: mouth [place] 00 every Medical evening. Branch levocetiriz 2022-0 Yes [id number] 5mg Take 1 [facility] ine 5 mg 4-04 tablet by ity of tablet 00:00: mouth [place] 00 every Medical evening. Branch levocetiriz 2-0 Yes [id number] 5mg Take 1 [facility] ine 5 mg 4-04 tablet by ity of tablet 00:00: mouth [place] 00 every Medical evening. Branch levocetiriz 2021-0 Yes [id number] 5mg Take 1 [facility] ine 5 mg 4-04 tablet by ity of tablet 00:00: mouth [place] 00 every Medical evening. Branch levocetiriz 2021-0 Yes [id number] 5mg Take 1 [facility] ine 5 mg 4-04 tablet by ity of tablet 00:00: mouth [place] 00 every Medical evening. Branch levocetiriz 2021-0 Yes [id number] 5mg Take 1 [facility] ine 5 mg 4-04 tablet by ity of tablet 00:00: mouth [place] 00 every Medical evening. Branch levocetiriz 2-0 Yes [id number] 5mg Take 1 [facility] ine 5 mg 4-04 tablet by ity of tablet 00:00: mouth [place] 00 every Medical evening. Branch levocetiriz 2021-0 Yes [id number] 5mg Take 1 [facility] ine 5 mg 4-04 tablet by ity of tablet 00:00: mouth [place] 00 every Medical evening. Branch levocetiriz 2021-0 Yes [id number] 5mg Take 1 [facility] ine 5 mg 4-04 tablet by [facility] tablet 00:00: mouth [place] 00 every Medical evening. [facility] levocetiriz 2021-0 Yes [id number] 5mg Take 1 [facility] 4-04 tablet [facility] 00:00: mouth [place] 00 every Medical evening. [facility] levocetiriz 2021-0 Yes [id number] 5mg Take 1 [facility] 5 mg 4-04 tablet by [facility] 00:00: mouth [place] 00 every Medical evening. [facility] levocetiriz 2-0 Yes [id number] 5mg Take 1 [facility] 5 mg 4-04 tablet by [facility] tablet 00:00: mouth [place] 00 every Medical evening. [facility] levocetiriz 2022-0 Yes [id number] 5mg Take 1 [facility] 5 mg 4-04 tablet by [facility] tablet 00:00: mouth [place] 00 every Medical evening. [facility] levocetiriz 2-0 Yes [id number] 5mg Take 1 [facility] 5 mg 4-04 tablet by [facility] 00:00: mouth [place] 00 every Medical evening. [facility] levocetiriz 2-0 Yes [id number] 5mg Take 1 [facility] 5 mg 4-04 tablet by [facility] tablet 00:00: mouth [place] 00 every Medical evening. [facility] levocetiriz 2-0 Yes [id number] 5mg Take 1 [facility] 5 mg 4-04 tablet by [facility] tablet 00:00: mouth [place] 00 every Medical evening. [facility] levocetiriz 2-0 Yes [id number] 5mg Take 1 [facility] 5 mg 4-04 tablet by [facility] tablet 00:00: mouth [place] 00 every Medical evening. [facility] levocetiriz 2-0 Yes [id number] 5mg Take 1 [facility] 5 mg 4-04 tablet by [facility] tablet 00:00: mouth [place] 00 every Medical evening. [facility] levocetiriz 2-0 Yes [id number] 5mg Take 1 [facility] 5 mg 4-04 tablet by [facility] tablet 00:00: mouth [place] 00 every Medical evening. [facility] levocetiriz 2-0 Yes [id number] 5mg Take 1 [facility] 5 mg 4-04 tablet by [facility] tablet 00:00: mouth [place] 00 every Medical evening. [facility] levocetiriz 2-0 Yes [id number] 5mg Take 1 [facility] 5 mg 4-04 tablet by [facility] tablet 00:00: mouth [place] 00 every Medical evening. [facility] levocetiriz 2-0 Yes [id number] 5mg Take 1 [facility] 5 mg 4-04 tablet by [facility] tablet 00:00: mouth [place] 00 every Medical evening. [facility] levocetiriz 2-0 Yes [id number] 5mg Take 1 [facility] 5 mg 4-04 tablet by [facility] tablet 00:00: mouth [place] 00 every Medical evening. [facility] levocetiriz 2-0 Yes [id number] 5mg Take 1 [facility] 5 mg 4-04 tablet by [facility] tablet 00:00: mouth [place] 00 every Medical evening. [facility] levocetiriz 2-0 Yes [id number] 5mg Take 1 [facility] 5 mg 4-04 tablet by [facility] tablet 00:00: mouth [place] 00 every Medical evening. [facility] levocetiriz 2-0 Yes [id number] 5mg Take 1 [facility] 5 mg 4-04 tablet by [facility] tablet 00:00: mouth [place] 00 every Medical evening. [facility] levocetiriz 2-0 Yes [id number] 5mg Take 1 [facility] 5 mg 4-04 tablet by [facility] tablet 00:00: mouth [place] 00 every Medical evening. [facility] levocetiriz 2-0 Yes [id number] 5mg Take 1 [facility] 5 mg 4-04 tablet by [facility] tablet 00:00: mouth [place] 00 every Medical evening. [facility] levocetiriz 2021-0 Yes [id number] 5mg Take 1 [facility] 5 mg 4-04 tablet by [facility] tablet 00:00: mouth [place] 00 every Medical evening. [facility] levocetiriz 2021-0 Yes [id number] 5mg Take 1 [facility] 5 mg 4-04 tablet by [facility] tablet 00:00: mouth [place] 00 every Medical evening. [facility] levocetiriz 2021-0 Yes [id number] 5mg Take 1 [facility] 5 mg 4-04 tablet by [facility] tablet 00:00: mouth [place] 00 every Medical evening. [facility] levocetiriz 2021-0 Yes [id number] 5mg Take 1 [facility] 5 mg 4-04 tablet by [facility] tablet 00:00: mouth [place] 00 every Medical evening. [facility] levocetiriz 2021-0 Yes [id number] 5mg Take 1 [facility] 5 mg 4-04 tablet by [facility] tablet 00:00: mouth [place] 00 every Medical evening. [facility] levocetiriz 2021-0 Yes [id number] 5mg Take 1 [facility] 5 mg 4-04 tablet by [facility] tablet 00:00: mouth [place] 00 every Medical evening. [facility] levocetiriz 2021-0 Yes [id number] 5mg Take 1 [facility] 5 mg 4-04 tablet by [facility] tablet 00:00: mouth [place] 00 every Medical evening. [facility] levocetiriz 2-0 Yes [id number] 5mg Take 1 [facility] 5 mg 4-04 tablet by [facility] tablet 00:00: mouth [place] 00 every Medical evening. [facility] levocetiriz 2-0 Yes [id number] 5mg Take 1 [facility] 5 mg 4-04 tablet by [facility] tablet 00:00: mouth [place] 00 every Medical evening. [facility] levocetiriz 2-0 Yes [id number] 5mg Take 1 [facility] 5 mg 4-04 tablet by [facility] tablet 00:00: mouth [place] 00 every Medical evening. [facility] levocetiriz 2-0 Yes [id number] 5mg Take 1 [facility] 5 mg 4-04 tablet by [facility] tablet 00:00: mouth [place] 00 every Medical evening. [facility] levocetiriz 2022-0 Yes [id number] 5mg Take 1 [facility] 5 mg 4-04 tablet by [facility] tablet 00:00: mouth [place] 00 every Medical evening. [facility] levocetiriz 2022-0 Yes [id number] 5mg Take 1 [facility] 5 mg 4-04 tablet by [facility] tablet 00:00: mouth [place] 00 every Medical evening. [facility] levocetiriz 2022-0 Yes [id number] 5mg Take 1 [facility] 5 mg 4-04 tablet by [facility] tablet 00:00: mouth [place] 00 every Medical evening. [facility] levocetiriz 2-0 Yes [id number] 5mg Take 1 [facility] 5 mg 4-04 tablet by [facility] tablet 00:00: mouth [place] 00 every Medical evening. [facility] levocetiriz 2-0 Yes [id number] 5mg Take 1 [facility] 5 mg 4-04 tablet by [facility] tablet 00:00: mouth [place] 00 every Medical evening. [facility] levocetiriz 2-0 Yes [id number] 5mg Take 1 [facility] 5 mg 4-04 tablet by [facility] tablet 00:00: mouth [place] 00 every Medical evening. [facility] levocetiriz 2-0 Yes [id number] 5mg Take 1 [facility] 5 mg 4-04 tablet by [facility] tablet 00:00: mouth [place] 00 every Medical evening. [facility] levocetiriz 2-0 Yes [id number] 5mg Take 1 [facility] 5 mg 4-04 tablet by [facility] tablet 00:00: mouth [place] 00 every Medical evening. [facility] levocetiriz 2022-0 Yes [id number] 5mg Take 1 [facility] 5 mg 4-04 tablet by [facility] tablet 00:00: mouth [place] 00 every Medical evening. [facility] levocetiriz 2022-0 Yes [id number] 5mg Take 1 [facility] 5 mg 4-04 tablet by [facility] tablet 00:00: mouth [place] 00 every Medical evening. [facility] levocetiriz 2022-0 Yes [id number] 5mg Take 1 [facility] mg 4-04 tablet by [facility] tablet 00:00: mouth [place] 00 every Medical evening. [facility] levocetiriz 2022-0 Yes [id number] 5mg Take 1 [facility] 5 mg 4-04 tablet by [facility] tablet 00:00: mouth [place] 00 every Medical evening. [facility] levocetiriz 2022-0 Yes [id number] 5mg Take 1 [facility] 5 mg 4-04 tablet by [facility] tablet 00:00: mouth [place] 00 every Medical evening. [facility] levocetiriz 2-0 Yes [id number] 5mg Take 1 [facility] 5 mg 4-04 tablet by [facility] tablet 00:00: mouth [place] 00 every Medical evening. [facility] levocetiriz 2-0 Yes [id number] 5mg Take 1 [facility] mg 4-04 tablet by [facility] tablet 00:00: mouth [place] 00 every Medical evening. [facility] levocetiriz 2-0 Yes [id number] 5mg Take 1 [facility] 5 mg 4-04 tablet by [facility] tablet 00:00: mouth [place] 00 every Medical evening. [facility] levocetiriz 2-0 Yes [id number] 5mg Take 1 [facility] 5 mg 4-04 tablet by [facility] tablet 00:00: mouth [place] 00 every Medical evening. [facility] levocetiriz 2-0 Yes [id number] 5mg Take 1 [facility] 5 mg 4-04 tablet by [facility] tablet 00:00: mouth [place] 00 every Medical evening. [facility] levocetiriz 2-0 Yes [id number] 5mg Take 1 [facility] 5 mg 4-04 tablet by [facility] tablet 00:00: mouth [place] 00 every Medical evening. [facility] levocetiriz 2-0 Yes [id number] 5mg Take 1 [facility] 5 mg 4-04 tablet by [facility] tablet 00:00: mouth [place] 00 every Medical evening. [facility] levocetiriz 2-0 Yes [id number] 5mg Take 1 [facility] 5 mg 4-04 tablet by [facility] tablet 00:00: mouth [place] 00 every Medical evening. [facility] levocetiriz 2022-0 Yes [id number] 5mg Take 1 [facility] 5 mg 4-04 tablet by [facility] tablet 00:00: mouth [place] 00 every Medical evening. [facility] levocetiriz 2022-0 Yes [id number] 5mg Take 1 [facility] 5 mg 4-04 tablet by [facility] tablet 00:00: mouth [place] 00 every Medical evening. [facility] levocetiriz 2022-0 Yes [id number] 5mg Take 1 [facility] 5 mg 4-04 tablet by [facility] tablet 00:00: mouth [place] 00 every Medical evening. [facility] levocetiriz 2-0 Yes [id number] 5mg Take 1 [facility] 5 mg 4-04 tablet by [facility] tablet 00:00: mouth [place] 00 every Medical evening. [facility] levocetiriz 2-0 Yes [id number] 5mg Take 1 [facility] 5 mg 4-04 tablet by [facility] tablet 00:00: mouth [place] 00 every Medical evening. [facility] levocetiriz 2021-0 Yes [id number] 5mg Take 1 [facility] 5 mg 4-04 tablet by [facility] tablet 00:00: mouth [place] 00 every Medical evening. [facility] levocetiriz 2-0 Yes [id number] 5mg Take 1 [facility] 5 mg 4-04 tablet by [facility] tablet 00:00: mouth [place] 00 every Medical evening. [facility] levocetiriz 2-0 Yes [id number] 5mg Take 1 [facility] 5 mg 4-04 tablet by [facility] tablet 00:00: mouth [place] 00 every Medical evening. [facility] levocetiriz 2021-0 Yes [id number] 5mg Take 1 [facility] 5 mg 4-04 tablet by [facility] tablet 00:00: mouth [place] 00 every Medical evening. [facility] levocetiriz 2021-0 Yes [id number] 5mg Take 1 [facility] 5 mg 4-04 tablet by [facility] tablet 00:00: mouth [place] 00 every Medical evening. [facility] levocetiriz 2021-0 Yes [id number] 5mg Take 1 [facility] 5 mg 4-04 tablet by [facility] tablet 00:00: mouth [place] 00 every Medical evening. Branch levocetiriz 2021-0 Yes [id number] 5mg Take 1 [facility] 5 mg 4-04 tablet by [facility] tablet 00:00: mouth [place] 00 every Medical evening. [facility] levocetiriz 2-0 Yes [id number] 5mg Take 1 [facility] 5 mg 4-04 tablet by [facility] tablet 00:00: mouth [place] 00 every Medical evening. [facility] levocetiriz 2-0 Yes [id number] 5mg Take 1 [facility] 5 mg 4-04 tablet by [facility] tablet 00:00: mouth [place] 00 every Medical evening. Branch levocetiriz 2-0 Yes [id number] 5mg Take 1 [facility] 5 mg 4-04 tablet by [facility] tablet 00:00: mouth [place] 00 every Medical evening. Branch levocetiriz 2022-0 Yes [id number] 5mg Take 1 [facility] 5 mg 4-04 tablet by [facility] tablet 00:00: mouth [place] 00 every Medical evening. Branch levocetiriz 0 Yes [id number] 5mg Take 1 [facility] 5 mg 4-04 tablet by [facility] tablet 00:00: mouth [place] 00 every Medical evening. Branch levocetiriz 2022- No [id number] 5mg Take 1 [facility] 5 mg 4-04 04-03 tablet by [facility] f tablet 00:00: 00:00 mouth [place] 00 :00 every Medical evening. Branch levocetiriz 2021-0 2022- No [id number] 5mg Take 1 [facility] 5 mg 4-04 04-03 tablet by [facility] f tablet 00:00: 00:00 mouth [place] 00 :00 every Medical evening. Branch levocetiriz 2021-2022- No [id number] 5mg Take 1 [facility] 5 mg 4-04 04-03 tablet by [facility] f tablet 00:00: 00:00 mouth [place] 00 :00 every Medical evening. Branch levocetiriz 2022- No [id number] 5mg Take 1 [facility] 5 mg 4-04 04-03 tablet by [facility] o f tablet 00:00: 00:00 mouth [place] 00 :00 every Medical evening. Branch levocetiriz 2022- No [id number] 5mg Take 1 [facility] 5 mg 4-04 04-03 tablet by [facility] o f tablet 00:00: 00:00 mouth [place] 00 :00 every Medical evening. Branch levocetiriz 2022- No [id number] 5mg Take 1 [facility] 5 mg 4-04 04-03 tablet by [facility] f tablet 00:00: 00:00 mouth [place] 00 :00 every Medical evening. Branch pantoprazol 2021-0 Yes [id number] 40mg Take 1 [facility] 40 mg EC 1-08 tablet by [facility] tablet 00:00: mouth [place] 00 daily. Medical Branch pantoprazol 2021-0 Yes [id number] 40mg Take 1 [facility] 40 mg EC 1-08 tablet by [facility] tablet 00:00: mouth [place] 00 daily. Medical Branch pantoprazol 2021-0 Yes [id number] 40mg Take 1 [facility] 40 mg EC 1-08 tablet by [facility] tablet 00:00: mouth [place] 00 daily. Medical Branch pantoprazol 2021-2- No [id number] 40mg Take 1 [facility] 40 mg EC 06-28 tablet by [facility] tablet 00:00: 00:00 mouth [place] 00 :00 daily. Medical Branch pantoprazol 0 2021- No [id number] 40mg Take 1 [facility] 40 mg EC 06-28 tablet by [facility] tablet 00:00: 00:00 mouth [place] 00 :00 daily. Medical Branch pravastatin 2020- Yes [id number] TAKE 1 [facility] 40 mg 1-08 TABLET BY [facility] tablet 00:00: MOUTH [place] 00 EVERYDAY Medical AT BEDTIME Branch pravastatin 2020- Yes [id number] TAKE 1 [facility] 40 mg 1-08 TABLET BY [facility] tablet 00:00: MOUTH [place] 00 EVERYDAY Medical AT BEDTIME Branch pravastatin 2020- Yes [id number] TAKE 1 [facility] 40 mg 1-08 TABLET BY [facility] tablet 00:00: MOUTH [place] 00 EVERYDAY Medical AT BEDTIME Branch pravastatin 2020- Yes [id number] TAKE 1 [facility] 40 mg 1-08 TABLET BY [facility] tablet 00:00: MOUTH [place] 00 EVERYDAY Medical AT BEDTIME Branch pravastatin 2020- Yes [id number] TAKE 1 [facility] 40 mg 1-08 TABLET BY [facility] tablet 00:00: MOUTH [place] 00 EVERYDAY Medical AT BEDTIME Branch pravastatin 2020-1 Yes [id number] TAKE 1 [facility] 40 mg 1-08 TABLET BY [facility] tablet 00:00: MOUTH [place] 00 EVERYDAY Medical AT BEDTIME Branch pravastatin 2021-1 Yes [id number] TAKE 1 [facility] 40 mg 1-08 TABLET BY [facility] tablet 00:00: MOUTH [place] 00 EVERYDAY Medical AT BEDTIME Branch pravastatin 2020-1 Yes [id number] TAKE 1 [facility] 40 mg 1-08 TABLET BY [facility] tablet 00:00: MOUTH [place] 00 EVERYDAY Medical AT BEDTIME Branch pravastatin 2020- Yes [id number] TAKE 1 [facility] 40 mg 1-08 TABLET BY [facility] tablet 00:00: MOUTH [place] 00 EVERYDAY Medical AT BEDTIME Branch pravastatin 2020-1 Yes [id number] TAKE 1 [facility] 40 mg 1-08 TABLET BY [facility] tablet 00:00: MOUTH [place] 00 EVERYDAY Medical AT BEDTIME Branch pravastatin 2020- Yes [id number] TAKE 1 [facility] 40 mg 1-08 TABLET BY [facility] tablet 00:00: MOUTH [place] 00 EVERYDAY Medical AT BEDTIME Branch pravastatin 2020- Yes [id number] TAKE 1 [facility] 40 mg 1-08 TABLET BY [facility] of tablet 00:00: [facility] EVERYDAY Medical AT BEDTIME Branch pravastatin 2020- Yes [id number] TAKE 1 [facility] 40 mg 1-08 TABLET BY it[facility] of tablet 00:00: MOUTH [place] EVERYDAY Medical AT BEDTIME Branch pravastatin 2020- Yes [id number] TAKE 1 [facility] 40 mg 1-08 TABLET BY [facility] of tablet 00:00: MOUTH [place] EVERYDAY Medical AT BEDTIME Branch pravastatin 2020- Yes [id number] TAKE 1 [facility] 40 mg 1-08 TABLET BY it[facility] of tablet 00:00: [facility] EVERYDAY Medical AT BEDTIME [place] pravastatin 2020- Yes [id number] TAKE 1 [facility] 40 mg 1-08 TABLET BY ity of tablet 00:00: [facility] EVERYDAY Medical AT BEDTIME Branch pravastatin 2020- Yes [id number] TAKE 1 [facility] 40 mg 1-08 TABLET BY [facility] of tablet 00:00: [facility] EVERYDAY Medical AT BEDTIME Branch pravastatin 2020- Yes [id number] TAKE 1 [facility] 40 mg 1-08 TABLET BY ity of tablet 00:00: [facility] EVERYDAY Medical AT BEDTIME Branch pravastatin 2020- Yes [id number] TAKE 1 [facility] 40 mg 1-08 TABLET BY it[facility] of tablet 00:00: [facility] EVERYDAY Medical AT BEDTIME Branch pravastatin 2020- Yes [id number] TAKE 1 [facility] 40 mg 1-08 TABLET BY ity of tablet 00:00: [facility] EVERYDAY Medical AT BEDTIME Branch pravastatin 2020- Yes [id number] TAKE 1 [facility] 40 mg 1-08 TABLET BY ity of tablet 00:00: [facility] EVERYDAY Medical AT BEDTIME Branch pravastatin 202- Yes [id number] TAKE 1 [facility] 40 mg 1-08 TABLET BY ity of tablet 00:00: [facility] EVERYDAY Medical AT BEDTIME Branch pravastatin 2020- Yes [id number] TAKE 1 [facility] 40 mg 1-08 TABLET BY ity of tablet 00:00: MOUTH [place] EVERYDAY Medical AT BEDTIME [place] pravastatin 2020- Yes [id number] TAKE 1 [facility] 40 mg 1-08 TABLET BY ity of tablet 00:00: MOUTH [place] 00 EVERYDAY Medical AT BEDTIME Branch pravastatin 2020- Yes [id number] TAKE 1 [facility] 40 mg 1-08 TABLET BY ity of tablet 00:00: MOUTH [place] 00 EVERYDAY Medical AT BEDTIME Branch pravastatin 2020- Yes [id number] TAKE 1 [facility] 40 mg 1-08 TABLET BY it[facility] of tablet 00:00: MOUTH [place] 00 EVERYDAY Medical AT BEDTIME Branch pravastatin 2020- Yes [id number] TAKE 1 [facility] 40 mg 1-08 TABLET BY ity of tablet 00:00: MOUTH [place] 00 EVERYDAY Medical AT BEDTIME Branch pravastatin 2020- Yes [id number] TAKE 1 [facility] 40 mg 1-08 TABLET BY it[facility] of tablet 00:00: MOUTH [place] EVERYDAY Medical AT BEDTIME [place] pravastatin 2020- Yes [id number] TAKE 1 [facility] 40 mg 1-08 TABLET BY it[facility] of tablet 00:00: MOUTH [place] EVERYDAY Medical AT BEDTIME Branch pravastatin 2020- Yes [id number] TAKE 1 [facility] 40 mg 1-08 TABLET BY it[facility] of tablet 00:00: MOUTH [place] 00 EVERYDAY Medical AT BEDTIME Branch pravastatin 2020- Yes [id number] TAKE 1 [facility] 40 mg 1-08 TABLET BY it[facility] of tablet 00:00: MOUTH [place] 00 EVERYDAY Medical AT BEDTIME [place] pravastatin 2020- Yes [id number] TAKE 1 [facility] 40 mg 1-08 TABLET BY ity of tablet 00:00: MOUTH [place] EVERYDAY Medical AT BEDTIME Branch pravastatin 2020- Yes [id number] TAKE 1 [facility] 40 mg 1-08 TABLET BY ity of tablet 00:00: MOUTH [place] 00 EVERYDAY Medical AT BEDTIME Branch pravastatin 2020- Yes [id number] TAKE 1 [facility] 40 mg 1-08 TABLET BY it[facility] of tablet 00:00: MOUTH [place] 00 EVERYDAY Medical AT BEDTIME Branch pravastatin 2020- Yes [id number] TAKE 1 [facility] 40 mg 1-08 TABLET BY it[facility] of tablet 00:00: MOUTH [place] 00 EVERYDAY Medical AT BEDTIME Branch pravastatin 2020- Yes [id number] TAKE 1 [facility] 40 mg 1-08 TABLET BY [facility] of tablet 00:00: MOUTH [place] 00 EVERYDAY Medical AT BEDTIME Branch pravastatin 2020-1 Yes [id number] TAKE 1 [facility] 40 mg 1-08 TABLET BY ity of tablet 00:00: MOUTH [place] 00 EVERYDAY Medical AT BEDTIME Branch pravastatin 2020- Yes [id number] TAKE 1 [facility] 40 mg 1-08 TABLET BY it[facility] of tablet 00:00: MOUTH [place] 00 EVERYDAY Medical AT BEDTIME Branch pravastatin 2020- Yes [id number] TAKE 1 [facility] 40 mg 1-08 TABLET BY it[facility] of tablet 00:00: MOUTH [place] 00 EVERYDAY Medical AT BEDTIME Branch pravastatin 2020- Yes [id number] TAKE 1 [facility] 40 mg 1-08 TABLET BY ity of tablet 00:00: MOUTH [place] 00 EVERYDAY Medical AT BEDTIME Branch pravastatin 2020- Yes [id number] TAKE 1 [facility] 40 mg 1-08 TABLET BY ity of tablet 00:00: MOUTH [place] EVERYDAY Medical AT BEDTIME [place] pravastatin 2020- Yes [id number] TAKE 1 [facility] 40 mg 1-08 TABLET BY ity of tablet 00:00: MOUTH [place] EVERYDAY Medical AT BEDTIME [place] pravastatin 2020- Yes [id number] TAKE 1 [facility] 40 mg 1-08 TABLET BY ity of tablet 00:00: MOUTH [place] EVERYDAY Medical AT BEDTIME [place] pravastatin 2020- Yes [id number] TAKE 1 [facility] 40 mg 1-08 TABLET BY ity of tablet 00:00: MOUTH [place] 00 EVERYDAY Medical AT BEDTIME [place] pravastatin 2020- Yes [id number] TAKE 1 [facility] 40 mg 1-08 TABLET BY ity of tablet 00:00: MOUTH [place] EVERYDAY Medical AT BEDTIME Branch pravastatin 2020- Yes [id number] TAKE 1 [facility] 40 mg 1-08 TABLET BY [facility] of tablet 00:00: MOUTH [place] 00 EVERYDAY Medical AT BEDTIME Branch pravastatin 1- Yes [id number] TAKE 1 [facility] 40 mg 1-08 TABLET BY ity of tablet 00:00: MOUTH [place] 00 EVERYDAY Medical AT BEDTIME Branch pravastatin 2020- Yes [id number] TAKE 1 [facility] 40 mg 1-08 TABLET BY ity of tablet 00:00: MOUTH [place] 00 EVERYDAY Medical AT BEDTIME Branch pravastatin 2020- Yes [id number] TAKE 1 [facility] 40 mg 1-08 TABLET BY ity of tablet 00:00: MOUTH [place] 00 EVERYDAY Medical AT BEDTIME Branch pravastatin 2020- Yes [id number] TAKE 1 [facility] 40 mg 1-08 TABLET BY ity of tablet 00:00: MOUTH [place] 00 EVERYDAY Medical AT BEDTIME Branch pravastatin 2020- Yes [id number] TAKE 1 [facility] 40 mg 1-08 TABLET BY ity of tablet 00:00: MOUTH [place] 00 EVERYDAY Medical AT BEDTIME Branch pravastatin 1- Yes [id number] TAKE 1 [facility] 40 mg 1-08 TABLET BY ity of tablet 00:00: MOUTH [place] EVERYDAY Medical AT BEDTIME Branch pravastatin 2020- Yes [id number] TAKE 1 [facility] 40 mg 1-08 TABLET BY ity of tablet 00:00: MOUTH [place] 00 EVERYDAY Medical AT BEDTIME Branch pravastatin 2020- Yes [id number] TAKE 1 [facility] 40 mg 1-08 TABLET BY [facility] of tablet 00:00: MOUTH [place] 00 EVERYDAY Medical AT BEDTIME [place] pravastatin 2020- Yes [id number] TAKE 1 [facility] 40 mg 1-08 TABLET BY it[facility] of tablet 00:00: MOUTH [place] EVERYDAY Medical AT BEDTIME [place] pravastatin 2020- Yes [id number] TAKE 1 [facility] 40 mg 1-08 TABLET BY ity of tablet 00:00: MOUTH [place] EVERYDAY Medical AT BEDTIME Branch pravastatin 2020- Yes [id number] TAKE 1 [facility] 40 mg 1-08 TABLET BY ity of tablet 00:00: MOUTH [place] 00 EVERYDAY Medical AT BEDTIME Branch pravastatin 2020- Yes [id number] TAKE 1 [facility] 40 mg 1-08 TABLET BY ity of tablet 00:00: MOUTH [place] EVERYDAY Medical AT BEDTIME Branch pravastatin 2020- Yes [id number] TAKE 1 [facility] 40 mg 1-08 TABLET BY ity of tablet 00:00: MOUTH [place] 00 EVERYDAY Medical AT BEDTIME Branch pravastatin 2021- Yes [id number] TAKE 1 [facility] 40 mg 1-08 TABLET BY ity of tablet 00:00: MOUTH [place] 00 EVERYDAY Medical AT BEDTIME Branch pravastatin 202- Yes [id number] TAKE 1 [facility] 40 mg 1-08 TABLET BY ity of tablet 00:00: MOUTH [place] 00 EVERYDAY Medical AT BEDTIME Branch pravastatin 202- Yes [id number] TAKE 1 [facility] 40 mg 1-08 TABLET BY ity of tablet 00:00: MOUTH [place] 00 EVERYDAY Medical AT BEDTIME [place] pravastatin 2020- Yes [id number] TAKE 1 [facility] 40 mg 1-08 TABLET BY ity of tablet 00:00: MOUTH [place] 00 EVERYDAY Medical AT BEDTIME Branch pravastatin 2020-06 Yes [id number] TAKE 1 [facility] 40 mg 1-08 TABLET BY ity of tablet 00:00: MOUTH [place] 00 EVERYDAY Medical AT BEDTIME Branch pravastatin 2020-06 Yes [id number] TAKE 1 [facility] 40 mg 1-08 TABLET BY ity of tablet 00:00: MOUTH 00 EVERYDAY Medical AT BEDTIME Branch pravastatin 2020-06 Yes [id number] TAKE 1 [facility] 40 mg 1-08 TABLET BY ity of tablet 00:00: MOUTH [place] 00 EVERYDAY Medical AT BEDTIME Branch pravastatin 2020-06 2023- No [id number] TAKE 1 [facility] 40 mg 1-08 -04 TABLET BY ity of tablet 00:00: 00:00 MOUTH [place] 00 :00 EVERYDAY Medical AT BEDTIME Branch pravastatin 2020-06- No [id number] TAKE 1 [facility] 40 mg 1-08 -04 TABLET BY ity of tablet 00:00: 00:[address] [facility] [place] 00 :00 EVERYDAY Medical AT [facility] Immunizations Ordered Filled Immunization Date Status Comments [facility] Immunization Name Name Influenza Virus 2022-03-17 Completed [facility] Vaccine[facility] 00:00:[facility] [place] [facility] 65+ Influenza Virus 2022-03-17 Completed [facility] Vaccine,quad 00:00:00 [place] [facility] 65+ Influenza Virus 2022-03-17 Completed [facility] Vaccine,quad 00:00:00 [place] [facility] Branch 65+ Influenza Virus 2022-03-17 Completed [facility] Vaccine,quad 00:00:00 [place] [facility] Branch 65+ Influenza Virus 2022-03-17 Completed [facility] Vaccine,quad 00:00:00 [place] [facility] Branch 65+ Influenza Virus 2022-03-17 Completed [facility] Vaccine,quad 00:00:00 [place] [facility] Branch 65+ Influenza Virus 2022-03-17 Completed [facility] Vaccine,quad 00:00:00 [place] [facility] Branch 65+ Influenza Virus 2022-03-17 Completed [facility] Vaccine,quad 00:00:00 [place] [facility] 65+ Influenza Virus 2022-03-17 Completed [facility] Vaccine,quad 00:00:00 [place] [facility] 65+ Influenza Virus 2022-03-17 Completed [facility] Vaccine,quad 00:00:00 [place] [facility] 65+ Influenza Virus 2022-03-17 Completed [facility] Vaccine,quad 00:00:00 [place] [facility] Branch 65+ Influenza Virus 2022-03-17 Completed [facility] Vaccine,quad 00:00:00 [place] [facility] 65+ Influenza Virus 2022-03-17 Completed [facility] Vaccine,quad 00:00:00 [place] [facility] 65+ Influenza Virus 2022-03-17 Completed [facility] Vaccine,quad 00:00:00 [place] [facility] 65+ Influenza Virus 2022-03-17 Completed [facility] Vaccine,quad 00:00:00 [place] [facility] 65+ Influenza Virus 2022-03-17 Completed [facility] Vaccine,quad 00:00:00 [place] [facility] 65+ Influenza Virus 2022-03-17 Completed [facility] Vaccine,quad 00:00:00 [place] [facility] 65+ Influenza Virus 2022-03-17 Completed [facility] Vaccine,quad 00:00:00 [place] [facility] 65+ Influenza Virus 2022-03-17 Completed [facility] Vaccine,quad 00:00:00 [place] [facility] 65+ Influenza Virus 2022-03-17 Completed [facility] Vaccine,quad 00:00:00 [place] [facility] 65+ Influenza Virus 2022-03-17 Completed [facility] Vaccine,quad 00:00:00 [place] [facility] Free Branch 65+ Influenza Virus 2022-03-17 Completed [facility] Vaccine,quad 00:00:00 [place] [facility] Branch 65+ Influenza Virus 2022-03-17 Completed [facility] Vaccine,quad 00:00:00 [place] [facility] 65+ Influenza Virus 2022-03-17 Completed [facility] Vaccine,quad 00:00:00 [place] [facility] Branch 65+ Influenza Virus 2022-03-17 Completed [facility] 65+ Influenza Virus 2022-03-17 Completed [facility] 00:00:00 [facility] 65+ Influenza Virus 2022-03-17 Completed [facility] 00:00:00 [facility] 65+ Influenza Virus 2022-03-17 Completed [facility] 00:00:00 [facility] 65+ Influenza Virus 2022-03-17 Completed [facility] 00:00:00 [facility] 65+ Influenza Virus 2022-03-17 Completed [facility] 00:00:00 [facility] 65+ Influenza Virus 2022-03-17 Completed [facility] 00:00:00 [facility] 65+ Influenza Virus 2022-03-17 Completed [facility] 00:00:00 [facility] 65+ Influenza Virus 2022-03-17 Completed [facility] 00:00:00 [facility] 65+ Influenza Virus 2022-03-17 Completed [facility] 00:00:00 [facility] 65+ Influenza Virus 2022-03-17 Completed [facility] 00:00:00 [facility] 65+ Influenza Virus 2022-03-17 Completed [facility] 00:00:00 [facility] 65+ Influenza Virus 2022-03-17 Completed [facility] 00:00:00 [facility] 65+ Influenza Virus 2022-03-17 Completed [facility] 00:00:00 [facility] 65+ Influenza Virus 2022-03-17 Completed [facility],quad 00:00:00 [facility] 65+ Influenza Virus 2022-03-17 Completed [facility] 00:00:00 [facility] 65+ Influenza Virus 2022-03-17 Completed [facility] 00:00:00 [facility] 65+ Influenza Virus 2022-03-17 Completed [facility] 00:00:00 [facility] 65+ Influenza Virus 2022-03-17 Completed [facility] 00:00:00 [facility] 65+ Influenza Virus 2022-03-17 Completed [facility] 00:00:00 [facility] 65+ Influenza Virus 2022-03-17 Completed [facility] 00:00:00 [facility] 65+ Influenza Virus 2022-03-17 Completed [facility] 00:00:00 [facility] 65+ Influenza Virus 2022-03-17 Completed [facility] 00:00:00 [facility] 65+ Influenza Virus 2022-03-17 Completed [facility] 00:00:00 [facility] 65+ Influenza Virus 2022-03-17 Completed [facility] 00:00:00 [facility] 65+ Influenza Virus 2022-03-17 Completed [facility] 00:00:00 [facility] 65+ Influenza Virus 2022-03-17 Completed [facility] 00:00:00 [facility] 65+ Influenza Virus 2022-03-17 Completed [facility] 00:00:00 [facility] 65+ Influenza Virus 2022-03-17 Completed [facility] 00:00:00 [facility] 65+ Influenza Virus 2022-03-17 Completed [facility] 00:00:00 [facility] 65+ Influenza Virus 2022-03-17 Completed [facility] 00:00:00 [facility] 65+ Influenza Virus 2022-03-17 Completed [facility] 00:00:00 [facility] 65+ Influenza Virus 2022-03-17 Completed [facility] 00:00:00 [facility] 65+ Influenza Virus 2022-03-17 Completed [facility] 00:00:00 [facility] 65+ Influenza Virus 2022-03-17 Completed [facility] 00:00:00 [facility] 65+ Influenza Virus 2022-03-17 Completed [facility] 00:00:00 [facility] 65+ Influenza Virus 2022-03-17 Completed [facility] 00:00:00 [facility] 65+ Influenza Virus 2022-03-17 Completed [facility] 00:00:00 [facility] 65+ Influenza Virus 2022-03-17 Completed [facility] 00:00:00 [facility] 65+ Influenza Virus 2022-03-17 Completed [facility] 00:00:00 [facility] 65+ Influenza Virus 2022-03-17 Completed [facility] 00:00:00 [facility] 65+ Influenza Virus 2022-03-17 Completed [facility] 00:00:00 [facility] 65+ Influenza Virus 2022-03-17 Completed [facility] 00:00:00 [facility] 65+ Influenza Virus 2022-03-17 Completed [facility] 00:00:00 [facility] 65+ Influenza Virus 2022-03-17 Completed [facility] 00:00:00 [facility] 65+ Influenza Virus 2022-03-17 Completed [facility] 00:00:00 [facility] 65+ Influenza Virus 2022-03-17 Completed [facility] 00:00:00 [facility] 65+ Influenza Virus 2022-03-17 Completed [facility] 00:00:00 [facility] 65+ Influenza Virus 2022-03-17 Completed [facility] 00:00:00 [facility] 65+ Influenza Virus 2022-03-17 Completed [facility] 00:00:00 [facility] 65+ Influenza Virus 2022-03-17 Completed [facility] 00:00:00 [facility] 65+ Influenza Virus 2022-03-17 Completed [facility] 00:00:00 [facility] 65+ Influenza Virus 2022-03-17 Completed [facility] 00:00:00 [facility] 65+ Influenza Virus 2022-03-17 Completed [facility] 00:00:00 [facility] 65+ Influenza Virus 2022-03-17 Completed [facility] 00:00:00 [facility] 65+ Influenza Virus 2022-03-17 Completed [facility] 00:00:00 [facility] 65+ Influenza Virus 2022-03-17 Completed [facility] 00:00:00 [facility] 65+ Influenza Virus 2022-03-17 Completed [facility] 00:00:00 [facility] 65+ Influenza Virus 2022-03-17 Completed [facility] 00:00:00 [facility] 65+ Influenza Virus 2022-03-17 Completed [facility] 00:00:00 [facility] 65+ Influenza Virus 2022-03-17 Completed [facility] 00:00:00 [facility] 65+ Influenza Virus 2022-03-17 Completed [facility] 00:00:00 [facility] 65+ Influenza Virus 2022-03-17 Completed [facility] 00:00:00 [facility] 65+ Influenza Virus 2022-03-17 Completed [facility] 00:00:00 [facility] 65+ Influenza Virus 2022-03-17 Completed [facility] 00:00:00 [facility] 65+ Influenza Virus 2022-03-17 Completed [facility] 00:00:00 [facility] 65+ Influenza Virus 2022-03-17 Completed [facility] 00:00:00 [facility] 65+ Influenza Virus 2022-03-17 Completed [facility] 00:00:00 [facility] 65+ Influenza Virus 2022-03-17 Completed [facility] 00:00:00 [facility] 65+ Influenza Virus 2022-03-17 Completed [facility] 00:00:00 [facility] 65+ Influenza Virus 2022-03-17 Completed [facility] 00:00:00 [facility] 65+ Influenza Virus 2022-03-17 Completed [facility] 00:00:00 [facility] 65+ Influenza Virus 2022-03-17 Completed [facility] 00:00:00 [facility] 65+ Influenza Virus 2022-03-17 Completed [facility] 00:00:00 [facility] 65+ Influenza Virus 2022-03-17 Completed [facility] 00:00:00 [facility] 65+ Influenza Virus 2022-03-17 Completed [facility] 00:00:00 [facility] 65+ Influenza Virus 2022-03-17 Completed [facility] 00:00:00 [facility] 65+ Influenza Virus 2022-03-17 Completed [facility] 00:00:00 [facility] 65+ Influenza Virus 2022-03-17 Completed [facility] 00:00:00 [facility] 65+ Influenza Virus 2022-03-17 Completed [facility] 00:00:00 [facility] 65+ Influenza Virus 2022-03-17 Completed [facility] 00:00:00 [facility] 65+ Influenza Virus 2022-03-17 Completed [facility] 00:00:00 [facility] 65+ Influenza Virus 2022-03-17 Completed [facility] 00:00:00 [facility] 65+ Influenza Virus 2022-03-17 Completed [facility] 00:00:00 [facility] 65+ Influenza Virus 2022-03-17 Completed [facility] 00:00:00 [facility] 65+ Influenza Virus 2022-03-17 Completed [facility] 00:00:00 [facility] 65+ Influenza Virus 2022-03-17 Completed [facility] 00:00:00 [facility] 65+ Influenza Virus 2022-03-17 Completed [facility] 00:00:00 [facility] 65+ Influenza Virus 2022-03-17 Completed [facility],quad 00:00:00 [facility] 65+ Influenza Virus 2022-03-17 Completed [facility] 00:00:00 [facility] 65+ Influenza Virus 2022-03-17 Completed [facility] 00:00:00 [facility] 65+ Influenza Virus 2022-03-17 Completed [facility] 00:00:00 [facility] 65+ Influenza Virus 2022-03-17 Completed [facility],quad 00:00:00 [facility] 65+ Influenza Virus 2022-03-17 Completed [facility],quad 00:00:00 [facility] 65+ Influenza Virus 2022-03-17 Completed [facility] 00:00:00 [facility] 65+ SARS-COV-2 COVID-19 2022-03-09 Completed [facility] 00:00:00 [facility] Y[facility]+, Branch BIVALENT 0.3ML, IM, (PFIZER GARCIA TOP BOOSTER) SARS-COV-2 COVID-19 2022-03-09 Completed [facility] 00:00:00 [facility] Y[facility]+, [facility] BIVALENT 0.3ML, IM, (PFIZER GARCIA TOP BOOSTER) SARS-COV-2 COVID-19 2022-03-09 Completed [facility] 00:00:00 [facility] Y[facility]+, Branch BIVALENT 0.3ML, IM, (PFIZER GARCIA TOP BOOSTER) SARS-COV-2 COVID-19 2022-03-09 Completed [facility] 00:00:00 [facility] YRS+, Branch BIVALENT 0.3ML, IM, (PFIZER GARCIA TOP BOOSTER) SARS-COV-2 COVID-19 2022-03-09 Completed [facility] 00:00:00 [facility] YRS+, Branch BIVALENT 0.3ML, IM, (PFIZER GARCIA TOP BOOSTER) SARS-COV-2 COVID-19 2022-03-09 Completed [facility] 00:00:00 [facility]INE [facility] YRS+, Branch BIVALENT 0.3ML, IM, (PFIZER GARCIA TOP BOOSTER) SARS-COV-2 COVID-19 2022-03-09 Completed [facility] 00:00:00 [facility] YRS+, Branch BIVALENT 0.3ML, IM, (PFIZER GARCIA TOP BOOSTER) SARS-COV-2 COVID-19 2022-03-09 Completed [facility] 00:00:00 [facility] YRS+, Branch BIVALENT 0.3ML, IM, (PFIZER GARCIA TOP BOOSTER) SARS-COV-2 COVID-19 2022-03-09 Completed [facility] 00:00:00 [facility]INE 12 YRS+, Branch BIVALENT 0.3ML, IM, (PFIZER GARCIA TOP BOOSTER) SARS-COV-2 COVID-19 2022-03-09 Completed [facility] 00:00:00 [facility]INE 12 YRS+, Branch BIVALENT 0.3ML, IM, (PFIZER GARCIA TOP BOOSTER) SARS-COV-2 COVID-19 2022-03-09 Completed [facility] 00:00:00 [facility]INE 12 YRS+, Branch BIVALENT 0.3ML, IM, (PFIZER GARCIA TOP BOOSTER) SARS-COV-2 COVID-19 2022-03-09 Completed [facility] 00:00:00 [facility]INE 12 YRS+, Branch BIVALENT 0.3ML, IM, (PFIZER GARCIA TOP BOOSTER) SARS-COV-2 COVID-19 2022-03-09 Completed [facility] 00:00:00 [facility]INE [facility] YRS+, Branch BIVALENT 0.3ML, IM, (PFIZER GARCIA TOP BOOSTER) SARS-COV-2 COVID-19 2022-03-09 Completed [facility] 00:00:00 [facility]INE 12 YRS+, Branch BIVALENT 0.3ML, IM, (PFIZER GARCIA TOP BOOSTER) SARS-COV-2 COVID-19 2022-03-09 Completed [facility] 00:00:00 [facility]INE 12 YRS+, Branch BIVALENT 0.3ML, IM, (PFIZER GARCIA TOP BOOSTER) SARS-COV-2 COVID-19 2022-03-09 Completed [facility] 00:00:00 [facility]INE 12 YRS+, Branch BIVALENT 0.3ML, IM, (PFIZER GARCIA TOP BOOSTER) SARS-COV-2 COVID-19 2022-03-09 Completed [facility] 00:00:00 [facility]ACCINE 12 YRS+, Branch BIVALENT 0.3ML, IM, (PFIZER GARCIA TOP BOOSTER) SARS-COV-2 COVID-19 2022-03-09 Completed [facility] 00:00:00 [facility]INE 12 YRS+, Branch BIVALENT 0.3ML, IM, (PFIZER GARCIA TOP BOOSTER) SARS-COV-2 COVID-19 2022-03-09 Completed [facility] 00:00:00 [facility]INE 12 YRS+, Branch BIVALENT 0.3ML, IM, (PFIZER GARCIA TOP BOOSTER) SARS-COV-2 COVID-19 2022-03-09 Completed [facility] 00:00:00 [facility]INE 12 YRS+, Branch BIVALENT 0.3ML, IM, (PFIZER GARCIA TOP BOOSTER) SARS-COV-2 COVID-19 2022-03-09 Completed [facility] 00:00:00 [facility]ACCINE 12 YRS+, Branch BIVALENT 0.3ML, IM, (PFIZER GARCIA TOP BOOSTER) SARS-COV-2 COVID-19 2022-03-09 Completed [facility] 00:00:00 [facility]ACCINE 12 YRS+, Branch BIVALENT 0.3ML, IM, (PFIZER GARCIA TOP BOOSTER) SARS-COV-2 COVID-19 2022-03-09 Completed [facility] 00:00:00 [facility]INE 12 YRS+, Branch BIVALENT 0.3ML, IM, (PFIZER GARCIA TOP BOOSTER) SARS-COV-2 COVID-19 2022-03-09 Completed [facility] 00:00:00 [facility]ACCINE 12 YRS+, Branch BIVALENT 0.3ML, IM, (PFIZER GARCIA TOP BOOSTER) SARS-COV-2 COVID-19 2022-03-09 Completed [facility] 00:00:00 [facility]ACCINE 12 YRS+, Branch BIVALENT 0.3ML, IM, (PFIZER GARCIA TOP BOOSTER) SARS-COV-2 COVID-19 2022-03-09 Completed [facility] 00:00:00 [facility]INE 12 YRS+, Branch BIVALENT 0.3ML, IM, (PFIZER GARCIA TOP BOOSTER) SARS-COV-2 COVID-19 2022-03-09 Completed [facility] 00:00:00 [facility]ACCINE 12 YRS+, Branch BIVALENT 0.3ML, IM, (PFIZER GARCIA TOP BOOSTER) SARS-COV-2 COVID-19 2022-03-09 Completed [facility] 00:00:00 [facility]ACCINE 12 YRS+, Branch BIVALENT 0.3ML, IM, (PFIZER GARCIA TOP BOOSTER) SARS-COV-2 COVID-19 2022-03-09 Completed [facility] 00:00:00 [facility]ACCINE 12 YRS+, Branch BIVALENT 0.3ML, IM, (PFIZER GARCIA TOP BOOSTER) SARS-COV-2 COVID-19 2022-03-09 Completed [facility] 00:00:00 [facility]INE 12 YRS+, Branch BIVALENT 0.3ML, IM, (PFIZER GARCIA TOP BOOSTER) SARS-COV-2 COVID-19 2022-03-09 Completed [facility] 00:00:00 [facility]ACCINE 12 YRS+, Branch BIVALENT 0.3ML, IM, (PFIZER GARCIA TOP BOOSTER) SARS-COV-2 COVID-19 2022-03-09 Completed [facility] 00:00:00 [facility]ACCINE 12 YRS+, Branch BIVALENT 0.3ML, IM, (PFIZER GARCIA TOP BOOSTER) SARS-COV-2 COVID-19 2022-03-09 Completed [facility] 00:00:00 [facility]INE 12 YRS+, Branch BIVALENT 0.3ML, IM, (PFIZER GARCIA TOP BOOSTER) SARS-COV-2 COVID-19 2022-03-09 Completed [facility] 00:00:00 [facility]ACCINE 12 YRS+, Branch BIVALENT 0.3ML, IM, (PFIZER GARCIA TOP BOOSTER) SARS-COV-2 COVID-19 2022-03-09 Completed [facility] 00:00:00 [facility]ACCINE 12 YRS+, Branch BIVALENT 0.3ML, IM, (PFIZER GARCIA TOP BOOSTER) SARS-COV-2 COVID-19 2022-03-09 Completed [facility] 00:00:00 [facility]ACCINE 12 YRS+, Branch BIVALENT 0.3ML, IM, (PFIZER GARCIA TOP BOOSTER) SARS-COV-2 COVID-19 2022-03-09 Completed [facility] 00:00:00 [facility]ACCINE 12 YRS+, Branch BIVALENT 0.3ML, IM, (PFIZER GARCIA TOP BOOSTER) SARS-COV-2 COVID-19 2022-03-09 Completed [facility] 00:00:00 [facility]ACCINE 12 YRS+, Branch BIVALENT 0.3ML, IM, (PFIZER GARCIA TOP BOOSTER) SARS-COV-2 COVID-19 2022-03-09 Completed [facility] 00:00:00 [facility]ACCINE 12 YRS+, Branch BIVALENT 0.3ML, IM, (PFIZER GARCIA TOP BOOSTER) SARS-COV-2 COVID-19 2022-03-09 Completed [facility] 00:00:00 [facility]ACCINE 12 YRS+, Branch BIVALENT 0.3ML, IM, (PFIZER GARCIA TOP BOOSTER) SARS-COV-2 COVID-19 2022-03-09 Completed [facility] 00:00:00 [facility]ACCINE 12 YRS+, Branch BIVALENT 0.3ML, IM, (PFIZER GARCIA TOP BOOSTER) SARS-COV-2 COVID-19 2022-03-09 Completed [facility] 00:00:00 [facility]ACCINE 12 YRS+, Branch BIVALENT 0.3ML, IM, (PFIZER GARCIA TOP BOOSTER) SARS-COV-2 COVID-19 2022-03-09 Completed [facility] 00:00:00 [facility]ACCINE 12 YRS+, Branch BIVALENT 0.3ML, IM, (PFIZER GARCIA TOP BOOSTER) SARS-COV-2 COVID-19 2022-03-09 Completed [facility] 00:00:00 [facility]ACCINE 12 YRS+, Branch BIVALENT 0.3ML, IM, (PFIZER GARCIA TOP BOOSTER) SARS-COV-2 COVID-19 2022-03-09 Completed [facility] 00:00:00 [facility]ACCINE 12 YRS+, Branch BIVALENT 0.3ML, IM, (PFIZER GARCIA TOP BOOSTER) SARS-COV-2 COVID-19 2022-03-09 Completed [facility] 00:00:00 [facility]ACCINE 12 YRS+, Branch BIVALENT 0.3ML, IM, (PFIZER GARCIA TOP BOOSTER) SARS-COV-2 COVID-19 2022-03-09 Completed [facility] 00:00:00 [facility] VACCINE 12 YRS+, Branch BIVALENT 0.3ML, IM, (PFIZER GARCIA TOP BOOSTER) SARS-COV-2 COVID-19 2022-03-09 Completed [facility] 00:00:00 [facility] VACCINE 12 YRS+, Branch BIVALENT 0.3ML, IM, (PFIZER GARCIA TOP BOOSTER) SARS-COV-2 COVID-19 2022-03-09 Completed [facility] 00:00:00 [facility] VACCINE 12 YRS+, Branch BIVALENT 0.3ML, IM, (PFIZER GARCIA TOP BOOSTER) SARS-COV-2 COVID-19 2022-03-09 Completed [facility] 00:00:00 [facility] VACCINE 12 YRS+, Branch BIVALENT 0.3ML, IM, (PFIZER GARCIA TOP BOOSTER) SARS-COV-2 COVID-19 2022-03-09 Completed [facility] 00:00:00 [facility] VACCINE 12 YRS+, Branch BIVALENT 0.3ML, IM, (PFIZER GARCIA TOP BOOSTER) SARS-COV-2 COVID-19 2022-03-09 Completed [facility] 00:00:00 [facility] VACCINE 12 YRS+, Branch BIVALENT 0.3ML, IM, (PFIZER GARCIA TOP BOOSTER) SARS-COV-2 COVID-19 2022-03-09 Completed [facility] 00:00:00 [facility] VACCINE 12 YRS+, Branch BIVALENT 0.3ML, IM, (PFIZER GARCIA TOP BOOSTER) SARS-COV-2 COVID-19 2022-03-09 Completed [facility] 00:00:00 [facility] VACCINE 12 YRS+, Branch BIVALENT 0.3ML, IM, (PFIZER GARCIA TOP BOOSTER) SARS-COV-2 COVID-19 2022-03-09 Completed [facility] 00:00:00 [facility] VACCINE 12 YRS+, Branch BIVALENT 0.3ML, IM, (PFIZER GARCIA TOP BOOSTER) SARS-COV-2 COVID-19 2022-03-09 Completed [facility] 00:00:00 [facility] VACCINE 12 YRS+, Branch BIVALENT 0.3ML, IM, (PFIZER GARCIA TOP BOOSTER) SARS-COV-2 COVID-19 2022-03-09 Completed [facility] 00:00:00 [facility] VACCINE 12 YRS+, Branch BIVALENT 0.3ML, IM, (PFIZER GARCIA TOP BOOSTER) SARS-COV-2 COVID-19 2022-03-09 Completed [facility] 00:00:00 [facility] VACCINE 12 YRS+, Branch BIVALENT 0.3ML, IM, (PFIZER GARCIA TOP BOOSTER) SARS-COV-2 COVID-19 2022-03-09 Completed [facility] 00:00:00 [facility] VACCINE 12 YRS+, Branch BIVALENT 0.3ML, IM, (PFIZER GARCIA TOP BOOSTER) SARS-COV-2 COVID-19 2022-03-09 Completed [facility] of [facility] 00:00:00 [facility] VACCINE 12 YRS+, Branch BIVALENT 0.3ML, IM, (PFIZER GARCIA TOP BOOSTER) SARS-COV-2 COVID-19 2022-03-09 Completed [facility] 00:00:00 [facility] VACCINE 12 YRS+, Branch BIVALENT 0.3ML, IM, (PFIZER GARCIA TOP BOOSTER) SARS-COV-2 COVID-19 2022-03-09 Completed [facility] 00:00:00 [facility] VACCINE 12 YRS+, Branch BIVALENT 0.3ML, IM, (PFIZER GARCIA TOP BOOSTER) SARS-COV-2 COVID-19 2022-03-09 Completed [facility] 00:00:00 [facility]ACCINE 12 YRS+, Branch BIVALENT 0.3ML, IM, (PFIZER GARCIA TOP BOOSTER) SARS-COV-2 COVID-19 2022-03-09 Completed [facility] 00:00:00 [facility] VACCINE 12 YRS+, Branch BIVALENT 0.3ML, IM, (PFIZER GARCIA TOP BOOSTER) SARS-COV-2 COVID-19 2022-03-09 Completed [facility] of [facility] 00:00:00 [facility]ACCINE 12 YRS+, Branch BIVALENT 0.3ML, IM, (PFIZER GARCIA TOP BOOSTER) SARS-COV-2 COVID-19 2022-03-09 Completed [facility] 00:00:00 [facility]ACCINE 12 YRS+, Branch BIVALENT 0.3ML, IM, (PFIZER GARCIA TOP BOOSTER) SARS-COV-2 COVID-19 2022-03-09 Completed [facility] 00:00:00 [facility]ACCINE 12 YRS+, Branch BIVALENT 0.3ML, IM, (PFIZER GARCIA TOP BOOSTER) SARS-COV-2 COVID-19 2022-03-09 Completed [facility] 00:00:00 [facility]ACCINE 12 YRS+, Branch BIVALENT 0.3ML, IM, (PFIZER GARCIA TOP BOOSTER) SARS-COV-2 COVID-19 2022-03-09 Completed [facility] 00:00:00 [facility]ACCINE 12 Y[facility]+, Branch BIVALENT 0.3ML, IM, (PFIZER GARCIA TOP BOOSTER) SARS-COV-2 COVID-19 2022-03-09 Completed [facility] 00:00[facility]00 [facility] 12 Y[facility]+, Branch BIVALENT 0.3ML, IM, (PFIZER GARCIA TOP BOOSTER) SARS-COV-2 COVID-19 2022-03-09 Completed [facility] 00:00:00 [facility] 12 Y[facility]+, Branch BIVALENT 0.3ML, IM, (PFIZER GARCIA TOP BOOSTER) SARS-COV-2 COVID-19 2022-03-09 Completed [facility] 00:00:00 [facility] 12 Y[facility]+, Branch BIVALENT 0.3ML, IM, (PFIZER GARCIA TOP BOOSTER) SARS-COV-2 COVID-19 2022-03-09 Completed [facility] 00:00:00 [facility] 12 Y[facility]+, Branch BIVALENT 0.3ML, IM, (PFIZER GARCIA TOP BOOSTER) SARS-COV-2 COVID-19 2022-03-09 Completed [facility] 00:00:00 [facility] 12 Y[facility]+, Branch BIVALENT 0.3ML, IM, (PFIZER GARCIA TOP BOOSTER) SARS-COV-2 COVID-19 2022-03-09 Completed [facility] 00:00:00 [facility] 12 Y[facility]+, Branch BIVALENT 0.3ML, IM, (PFIZER GARCIA TOP BOOSTER) SARS-COV-2 COVID-19 2022-03-09 Completed [facility] 00:00:00 [facility] 12 Y[facility]+, Branch BIVALENT 0.3ML, IM, (PFIZER GARCIA TOP BOOSTER) SARS-COV-2 COVID-19 2022-03-09 Completed [facility]:00:00 [facility] 12 Y[facility]+, Branch BIVALENT 0.3ML, IM, (PFIZER GARCIA TOP BOOSTER) SARS-COV-2 COVID-19 2022-03-09 Completed [facility]00 [facility] VACCINE 12 YRS+, Branch BIVALENT 0.3ML, IM, (PFIZER GARCIA TOP BOOSTER) SARS-COV-2 COVID-19 2022-03-09 Completed [facility] VACCINE [facility] Y[facility]+, [facility] BIVALENT 0.3ML, IM, (PFIZER GARCIA TOP BOOSTER) SARS-COV-2 COVID-19 2022-03-09 Completed [facility] 00:00:00 [facility] VACCINE 12 Y[facility]+, Branch BIVALENT 0.3ML, IM, (PFIZER GARCIA TOP BOOSTER) SARS-COV-2 COVID-19 2022-03-09 Completed [facility] 00:00:00 [facility] VACCINE 12 YRS+, Branch BIVALENT 0.3ML, IM, (PFIZER GARCIA TOP BOOSTER) SARS-COV-2 COVID-19 2022-03-09 Completed [facility] 00:00:00 [facility] VACCINE 12 YRS+, Branch BIVALENT 0.3ML, IM, (PFIZER GARCIA TOP BOOSTER) SARS-COV-2 COVID-19 2022-03-09 Completed [facility] 00:00:00 [facility] VACCINE 12 YRS+, Branch BIVALENT 0.3ML, IM, (PFIZER GARCIA TOP BOOSTER) SARS-COV-2 COVID-19 2022-03-09 Completed [facility] 00:00:00 [facility] VACCINE 12 YRS+, Branch BIVALENT 0.3ML, IM, (PFIZER GARCIA TOP BOOSTER) SARS-COV-2 COVID-19 2022-03-09 Completed [facility] 00:00:00 [facility] VACCINE 12 YRS+, Branch BIVALENT 0.3ML, IM, (PFIZER GARCIA TOP BOOSTER) SARS-COV-2 COVID-19 2022-03-09 Completed [facility] 00:00:00 [facility] VACCINE 12 YRS+, Branch BIVALENT 0.3ML, IM, (PFIZER GARCIA TOP BOOSTER) SARS-COV-2 COVID-19 2022-03-09 Completed [facility] 00:00:00 [facility] VACCINE 12 YRS+, Branch BIVALENT 0.3ML, IM, (PFIZER GARCIA TOP BOOSTER) SARS-COV-2 COVID-19 2022-03-09 Completed [facility] 00:00:00 [facility] VACCINE 12 YRS+, Branch BIVALENT 0.3ML, IM, (PFIZER GARCIA TOP BOOSTER) SARS-COV-2 COVID-19 2022-03-09 Completed [facility] 00:00:00 [facility] VACCINE 12 YRS+, Branch BIVALENT 0.3ML, IM, (PFIZER GARCIA TOP BOOSTER) SARS-COV-2 COVID-19 2022-03-09 Completed [facility] 00:00:00 [facility] VACCINE 12 YRS+, Branch BIVALENT 0.3ML, IM, (PFIZER GARCIA TOP BOOSTER) SARS-COV-2 COVID-19 2022-03-09 Completed [facility] 00:00:00 [facility] VACCINE 12 YRS+, Branch BIVALENT 0.3ML, IM, (PFIZER GARCIA TOP BOOSTER) SARS-COV-2 COVID-19 2022-03-09 Completed [facility] 00:00:00 [facility] VACCINE 12 YRS+, Branch BIVALENT 0.3ML, IM, (PFIZER GARCIA TOP BOOSTER) SARS-COV-2 COVID-19 2022-03-09 Completed [facility] 00:00:00 [facility] VACCINE 12 YRS+, Branch BIVALENT 0.3ML, IM, (PFIZER GARCIA TOP BOOSTER) SARS-COV-2 COVID-19 2022-03-09 Completed [facility] 00:00:00 [facility] VACCINE 12 YRS+, Branch BIVALENT 0.3ML, IM, (PFIZER GARCIA TOP BOOSTER) SARS-COV-2 COVID-19 2022-03-09 Completed [facility] 00:00:00 [facility] VACCINE 12 YRS+, Branch BIVALENT 0.3ML, IM, (PFIZER GARCIA TOP BOOSTER) SARS-COV-2 COVID-19 2022-03-09 Completed [facility] 00:00:00 [facility] VACCINE 12 YRS+, Branch BIVALENT 0.3ML, IM, (PFIZER GARCIA TOP BOOSTER) SARS-COV-2 COVID-19 2022-03-09 Completed [facility] 00:00:00 [facility] VACCINE 12 YRS+, Branch BIVALENT 0.3ML, IM, (PFIZER GARCIA TOP BOOSTER) SARS-COV-2 COVID-19 2022-03-09 Completed [facility] 00:00:00 [facility] VACCINE 12 YRS+, Branch BIVALENT 0.3ML, IM, (PFIZER GARCIA TOP BOOSTER) SARS-COV-2 COVID-19 2022-03-09 Completed [facility] 00:00:00 [place] [facility] VACCINE 12 YRS+, Branch BIVALENT 0.3ML, IM, (PFIZER GARCIA TOP) SARS-COV-2 COVID-19 2022-03-09 Completed [facility] 00:00:00 [place] [facility] VACCINE 12 YRS+, Branch BIVALENT 0.3ML, IM, (PFIZER GARCIA TOP) SARS-COV-2 COVID-19 2022-03-09 Completed [facility] 00:00:00 [place] [facility] VACCINE 12 YRS+, Branch BIVALENT 0.3ML, IM, (PFIZER GARCIA TOP) SARS-COV-2 COVID-19 2022-03-09 Completed [facility] 00:00:00 [place] [facility] VACCINE 12 YRS+, Branch BIVALENT 0.3ML, IM, (PFIZER GARCIA TOP) SARS-COV-2 COVID-19 2022-03-09 Completed [facility] 00:00:00 [place] [facility] VACCINE 12 YRS+, Branch BIVALENT 0.3ML, IM, (PFIZER GARCIA TOP) SARS-COV-2 COVID-19 2022-03-09 Completed [facility] 00:00:00 [place] [facility] VACCINE 12 YRS+, Branch BIVALENT 0.3ML, IM, (PFIZER GARCIA TOP BOOSTER) SARS-COV-2 COVID-19 2022-03-09 Completed [facility] 00:00:00 [place] [facility] VACCINE 12 YRS+, Branch BIVALENT 0.3ML, IM, (PFIZER GARCIA TOP BOOSTER) SARS-COV-2 COVID-19 2022-03-09 Completed [facility] 00:00:00 [facility] VACCINE 12 YRS+, Branch BIVALENT 0.3ML, IM, (PFIZER GARCIA TOP BOOSTER) SARS-COV-2 COVID-19 2022-03-09 Completed [facility] 00:00:00 [facility] VACCINE 12 YRS+, Branch BIVALENT 0.3ML, IM, (PFIZER GARCIA TOP BOOSTER) SARS-COV-2 COVID-19 2022-03-09 Completed [facility] 00:00:00 [facility] VACCINE 12 YRS+, Branch BIVALENT 0.3ML, IM, (PFIZER GARCIA TOP BOOSTER) SARS-COV-2 COVID-19 2022-03-09 Completed [facility] 00:00:00 [facility] VACCINE 12 YRS+, Branch BIVALENT 0.3ML, IM, (PFIZER GARCIA TOP BOOSTER) SARS-COV-2 COVID-19 2022-03-09 Completed [facility] 00:00:00 [place] [facility] VACCINE 12 YRS+, Branch BIVALENT 0.3ML, IM, (PFIZER GARCIA TOP BOOSTER) SARS-COV-2 COVID-19 2022-03-09 Completed [facility] 00:00:00 [place] [facility] VACCINE 12 YRS+, Branch BIVALENT 0.3ML, IM, (PFIZER GARCIA TOP BOOSTER) SARS-COV-2 COVID-19 2022-03-09 Completed [facility] 00:00:00 [facility] VACCINE 12 YRS+, Branch BIVALENT 0.3ML, IM, (PFIZER GARCIA TOP BOOSTER) SARS-COV-2 COVID-19 2022-03-09 Completed [facility] 00:00:00 [facility] VACCINE 12 YRS+, Branch BIVALENT 0.3ML, IM, (PFIZER GARCIA TOP BOOSTER) SARS-COV-2 COVID-19 2022-03-09 Completed [facility] 00:00:00 [facility] VACCINE 12 YRS+, Branch BIVALENT 0.3ML, IM, (PFIZER GARCIA TOP BOOSTER) SARS-COV-2 COVID-19 2022-03-09 Completed [facility] 00:00:00 [facility] VACCINE 12 YRS+, Branch BIVALENT 0.3ML, IM, (PFIZER GARCIA TOP BOOSTER) SARS-COV-2 COVID-19 2022-03-09 Completed [facility] 00:00:00 [place] [facility] VACCINE 12 YRS+, Branch BIVALENT 0.3ML, IM, (PFIZER GARCIA TOP BOOSTER) SARS-COV-2 COVID-19 2022-03-09 Completed [facility] 00:00:00 [place] [facility] VACCINE 12 YRS+, Branch BIVALENT 0.3ML, IM, (PFIZER GARCIA TOP BOOSTER) SARS-COV-2 COVID-19 2022-03-09 Completed [facility] 00:00:00 [place] [facility] VACCINE 12 YRS+, Branch BIVALENT 0.3ML, IM, (PFIZER GARCIA TOP BOOSTER) SARS-COV-2 COVID-19 2022-03-09 Completed [facility] 00:00:00 [place] [facility] VACCINE 12 YRS+, Branch BIVALENT 0.3ML, IM, (PFIZER GARCIA TOP BOOSTER) SARS-COV-2 COVID-19 2022-03-09 Completed [facility] 00:00:00 [place] [facility] VACCINE 12 YRS+, Branch BIVALENT 0.3ML, IM, (PFIZER GARCIA TOP BOOSTER) SARS-COV-2 COVID-19 2022-03-09 Completed [facility] 00:00:00 [place] [facility] VACCINE 12 YRS+, Branch BIVALENT 0.3ML, IM, (PFIZER GARCIA TOP BOOSTER) SARS-COV-2 COVID-19 2022-03-09 Completed [facility] 00:00:00 [place] [facility] VACCINE 12 YRS+, Branch BIVALENT 0.3ML, IM, (PFIZER GARCIA TOP BOOSTER) SARS-COV-2 COVID-19 2022-03-09 Completed [facility] 00:00:00 [place] [facility] VACCINE 12 YRS+, Branch BIVALENT 0.3ML, IM, (PFIZER GARCIA TOP BOOSTER) SARS-COV-2 COVID-19 2022-03-09 Completed [facility] 00:00:00 [place] [facility] VACCINE 12 YRS+, Branch BIVALENT 0.3ML, IM, (PFIZER GARCIA TOP BOOSTER) Influenza Virus 2021-07-11 Completed [facility] 00:00:[facility] 65+ Influenza Virus 2021-07-11 Completed [facility] Vaccine,quad 00:00:00 [facility] 65+ Influenza Virus 2021-07-11 Completed [facility] Vaccine,quad 00:00:00 [place] [facility] 65+ Influenza Virus 2021-07-11 Completed [facility] Vaccine,quad 00:00:00 [place] [facility] 65+ Influenza Virus 2021-07-11 Completed [facility] Vaccine,quad 00:00:00 [place] [facility] 65+ Influenza Virus 2021-07-11 Completed [facility] Vaccine,quad 00:00:00 [place] [facility] 65+ Influenza Virus 2021-07-11 Completed [facility] Vaccine,quad 00:00:00 [place] [facility] 65+ Influenza Virus 2021-07-11 Completed [facility] Vaccine,quad 00:00:00 [place] [facility] 65+ Influenza Virus 2021-07-11 Completed [facility] Vaccine,quad 00:00:00 [place] [facility] 65+ Influenza Virus 2021-07-11 Completed [facility] Vaccine,quad 00:00:00 [place] [facility] 65+ Influenza Virus 2021-07-11 Completed [facility] Vaccine,quad 00:00:00 [place] [facility] 65+ Influenza Virus 2021-07-11 Completed [facility] Vaccine,quad 00:00:00 [place] [facility] 65+ Influenza Virus 2021-07-11 Completed [facility] Vaccine,quad 00:00:00 [place] [facility] 65+ Influenza Virus 2021-07-11 Completed [facility] Vaccine,quad 00:00:00 [place] [facility] 65+ Influenza Virus 2021-07-11 Completed [facility] Vaccine,quad 00:00:00 [place] [facility] 65+ Influenza Virus 2021-07-11 Completed [facility] Vaccine,quad 00:00:00 [place] [facility] 65+ Influenza Virus 2021-07-11 Completed [facility] Vaccine,quad 00:00:00 [place] [facility] 65+ Influenza Virus 2021-07-11 Completed [facility] Vaccine,quad 00:00:00 [place] [facility] 65+ Influenza Virus 2021-07-11 Completed [facility] Vaccine,quad 00:00:00 [place] [facility] 65+ Influenza Virus 2021-07-11 Completed [facility] Vaccine,quad 00:00:00 [place] [facility] 65+ Influenza Virus 2021-07-11 Completed [facility] Vaccine,quad 00:00:00 [place] [facility] 65+ Influenza Virus 2021-07-11 Completed [facility] Vaccine,quad 00:00:00 [place] [facility] 65+ Influenza Virus 2021-07-11 Completed [facility] Vaccine,quad 00:00:00 [place] [facility] 65+ Influenza Virus 2021-07-11 Completed [facility] Vaccine,quad 00:00:00 [place] [facility] 65+ Influenza Virus 2021-07-11 Completed [facility] Vaccine,quad 00:00:00 [place] [facility] 65+ Influenza Virus 2021-07-11 Completed [facility] Vaccine,quad 00:00:00 [place] [facility] Free [facility] 65+ Influenza Virus 2021-07-11 Completed [facility] Vaccine,quad 00:00:00 [place] [facility] Free [facility] 65+ Influenza Virus 2021-07-11 Completed [facility] Vaccine,quad 00:00:00 [place] [facility] 65+ Influenza Virus 2021-07-11 Completed [facility] Vaccine,quad 00:00:00 [place] [facility] 65+ Influenza Virus 2021-07-11 Completed [facility] Vaccine,quad 00:00:00 [place] [facility] 65+ Influenza Virus 2021-07-11 Completed [facility] Vaccine,quad 00:00:00 [place] [facility] Free [facility] 65+ Influenza Virus 2021-07-11 Completed [facility] Vaccine,quad 00:00:00 [place] [facility] 65+ Influenza Virus 2021-07-11 Completed [facility] Vaccine,quad 00:00:00 [place] [facility] 65+ Influenza Virus 2021-07-11 Completed [facility] Vaccine,quad 00:00:00 [place] [facility] 65+ Influenza Virus 2021-07-11 Completed [facility] Vaccine,quad 00:00:00 [place] [facility] 65+ Influenza Virus 2021-07-11 Completed [facility] Vaccine,quad 00:00:00 [place] [facility] 65+ Influenza Virus 2021-07-11 Completed [facility] Vaccine,quad 00:00:00 [place] [facility] 65+ Influenza Virus 2021-07-11 Completed [facility] Vaccine,quad 00:00:00 [place] [facility] 65+ Influenza Virus 2021-07-11 Completed [facility] Vaccine,quad 00:00:00 [place] [facility] 65+ Influenza Virus 2021-07-11 Completed [facility] Vaccine,quad 00:00:00 [place] [facility] 65+ Influenza Virus 2021-07-11 Completed [facility] Vaccine,quad 00:00:00 [place] [facility] 65+ Influenza Virus 2021-07-11 Completed [facility] Vaccine,quad 00:00:00 [place] [facility] 65+ Influenza Virus 2021-07-11 Completed [facility] Vaccine,quad 00:00:00 [facility] 65+ Influenza Virus 2021-07-11 Completed [facility] Vaccine,quad 00:00:00 [place] [facility] 65+ Influenza Virus 2021-07-11 Completed [facility] Vaccine,quad 00:00:00 [facility] 65+ Influenza Virus 2021-07-11 Completed [facility] Vaccine,quad 00:00:00 [facility] 65+ Influenza Virus 2021-07-11 Completed [facility] Vaccine,quad 00:00:00 [place] [facility] 65+ Influenza Virus 2021-07-11 Completed [facility] Vaccine,quad 00:00:00 [facility] 65+ Influenza Virus 2021-07-11 Completed [facility] Vaccine,quad 00:00:00 [place] [facility] 65+ Influenza Virus 2021-07-11 Completed [facility] Vaccine,quad 00:00:00 [place] [facility] 65+ Influenza Virus 2021-07-11 Completed [facility] Vaccine,quad 00:00:00 [place] [facility] 65+ Influenza Virus 2021-07-11 Completed [facility] Vaccine,quad 00:00:00 [place] [facility] 65+ Influenza Virus 2021-07-11 Completed [facility] Vaccine,quad 00:00:00 [place] [facility] 65+ Influenza Virus 2021-07-11 Completed [facility] Vaccine,quad 00:00:00 [place] [facility] 65+ Influenza Virus 2021-07-11 Completed [facility] Vaccine,quad 00:00:00 [place] [facility] 65+ Influenza Virus 2021-07-11 Completed [facility] Vaccine,quad 00:00:00 [place] [facility] 65+ Influenza Virus 2021-07-11 Completed [facility] Vaccine,quad 00:00:00 [place] [facility] 65+ Influenza Virus 2021-07-11 Completed [facility] Vaccine,quad 00:00:00 [place] [facility] 65+ Influenza Virus 2021-07-11 Completed [facility] Vaccine,quad 00:00:00 [place] [facility] 65+ Influenza Virus 2021-07-11 Completed [facility] Vaccine,quad 00:00:00 [place] [facility] 65+ Influenza Virus 2021-07-11 Completed [facility] Vaccine,quad 00:00:00 [place] [facility] 65+ Influenza Virus 2021-07-11 Completed [facility] Vaccine,quad 00:00:00 [place] [facility] 65+ Influenza Virus 2021-07-11 Completed [facility] Vaccine,quad 00:00:00 [place] [facility] 65+ Influenza Virus 2021-07-11 Completed [facility] Vaccine,quad 00:00:00 [place] [facility] 65+ Influenza Virus 2021-07-11 Completed [facility] Vaccine,quad 00:00:00 [place] [facility] 65+ Influenza Virus 2021-07-11 Completed [facility] Vaccine,quad 00:00:00 [place] [facility] 65+ Influenza Virus 2021-07-11 Completed [facility] Vaccine,quad 00:00:00 [place] [facility] 65+ Influenza Virus 2021-07-11 Completed [facility] Vaccine,quad 00:00:00 [place] [facility] 65+ Influenza Virus 2021-07-11 Completed [facility] Vaccine,quad 00:00:00 [place] [facility] 65+ Influenza Virus 2021-07-11 Completed [facility] Vaccine,quad 00:00:00 [place] [facility] 65+ Influenza Virus 2021-07-11 Completed [facility] Vaccine,quad 00:00:00 [place] [facility] 65+ Influenza Virus 2021-07-11 Completed [facility] Vaccine,quad 00:00:00 [place] [facility] 65+ Influenza Virus 2021-07-11 Completed [facility] Vaccine,quad 00:00:00 [place] [facility] 65+ Influenza Virus 2021-07-11 Completed [facility] Vaccine,quad 00:00:00 [place] [facility] 65+ Influenza Virus 2021-07-11 Completed [facility] Vaccine,quad 00:00:00 [facility] 65+ Influenza Virus 2021-07-11 Completed [facility] Vaccine,quad 00:00:00 [facility] 65+ Influenza Virus 2021-07-11 Completed [facility] Vaccine,quad 00:00:00 [facility] 65+ Influenza Virus 2021-07-11 Completed [facility] Vaccine,quad 00:00:00 [facility] 65+ Influenza Virus 2021-07-11 Completed [facility] Vaccine,quad 00:00:00 [facility] 65+ Influenza Virus 2021-07-11 Completed [facility] Vaccine,quad 00:00:00 [facility] 65+ Influenza Virus 2021-07-11 Completed [facility] Vaccine,quad 00:00:00 [facility] 65+ Influenza Virus 2021-07-11 Completed [facility] Vaccine,quad 00:00:00 [facility] 65+ Influenza Virus 2021-07-11 Completed [facility] Vaccine,quad 00:00:00 [facility] 65+ Influenza Virus 2021-07-11 Completed [facility] Vaccine,quad 00:00:00 [facility] 65+ Influenza Virus 2021-07-11 Completed [facility] Vaccine,quad 00:00:00 [facility] 65+ Influenza Virus 2021-07-11 Completed [facility] Vaccine,quad 00:00:00 [facility] 65+ Influenza Virus 2021-07-11 Completed [facility] Vaccine,quad 00:00:00 [facility] 65+ Influenza Virus 2021-07-11 Completed [facility] Vaccine,quad 00:00:00 [facility] 65+ Influenza Virus 2021-07-11 Completed [facility] Vaccine,quad 00:00:00 [facility] 65+ Influenza Virus 2021-07-11 Completed [facility] Vaccine,quad 00:00:00 [facility] 65+ Influenza Virus 2021-07-11 Completed [facility] Vaccine,quad 00:00:00 [facility] 65+ Influenza Virus 2021-07-11 Completed [facility] Vaccine,quad 00:00:00 [facility] 65+ Influenza Virus 2021-07-11 Completed [facility] Vaccine,quad 00:00:00 [facility] 65+ Influenza Virus 2021-07-11 Completed [facility] Vaccine,quad 00:00:00 [facility] 65+ Influenza Virus 2021-07-11 Completed [facility] Vaccine,quad 00:00:00 [facility] 65+ Influenza Virus 2021-07-11 Completed [facility] Vaccine,quad 00:00:00 [place] [facility] 65+ Influenza Virus 2021-07-11 Completed [facility] Vaccine,quad 00:00:00 [facility] 65+ Influenza Virus 2021-07-11 Completed [facility] Vaccine,quad 00:00:00 [facility] 65+ Influenza Virus 2021-07-11 Completed [facility] Vaccine,quad 00:00:00 [facility] 65+ Influenza Virus 2021-07-11 Completed [facility] Vaccine,quad 00:00:00 [facility] 65+ Influenza Virus 2021-07-11 Completed [facility] Vaccine,quad 00:00:00 [facility] 65+ Influenza Virus 2021-07-11 Completed [facility] Vaccine,quad 00:00:00 [facility] 65+ Influenza Virus 2021-07-11 Completed [facility] Vaccine,quad 00:00:00 [facility] 65+ Influenza Virus 2021-07-11 Completed [facility] Vaccine,quad 00:00:00 [facility] 65+ Influenza Virus 2021-07-11 Completed [facility] Vaccine,quad 00:00:00 [facility] 65+ Influenza Virus 2021-07-11 Completed [facility] Vaccine,quad 00:00:00 [facility] 65+ Influenza Virus 2021-07-11 Completed [facility] Vaccine,quad 00:00:00 [facility] 65+ Influenza Virus 2021-07-11 Completed [facility] Vaccine,quad 00:00:00 [facility] 65+ Influenza Virus 2021-07-11 Completed [facility] Vaccine,quad 00:00:00 [facility] 65+ Influenza Virus 2021-07-11 Completed [facility] Vaccine,quad 00:00:00 [facility] 65+ Influenza Virus 2021-07-11 Completed [facility] Vaccine,quad 00:00:00 [facility] 65+ Influenza Virus 2021-07-11 Completed [facility] Vaccine,quad 00:00:00 [facility] 65+ Influenza Virus 2021-07-11 Completed [facility] Vaccine,quad 00:00:00 [facility] 65+ Influenza Virus 2021-07-11 Completed [facility] Vaccine,quad 00:00:00 [facility] 65+ Influenza Virus 2021-07-11 Completed [facility] Vaccine,quad 00:00:00 [facility] 65+ Influenza Virus 2021-07-11 Completed [facility] Vaccine,quad 00:00:00 [facility] 65+ Influenza Virus 2021-07-11 Completed [facility] Vaccine,quad 00:00:00 [facility] 65+ Influenza Virus 2021-07-11 Completed [facility] Vaccine,quad 00:00:00 [facility] 65+ Influenza Virus 2021-07-11 Completed [facility] Vaccine,quad 00:00:00 [facility] 65+ Influenza Virus 2021-07-11 Completed [facility] Vaccine,quad 00:00:00 [facility] 65+ Influenza Virus 2021-07-11 Completed [facility] Vaccine,quad 00:00:00 [facility] 65+ Influenza Virus 2021-07-11 Completed [facility] Vaccine,quad 00:00:00 [facility] 65+ Influenza Virus 2021-07-11 Completed [facility] Vaccine,quad 00:00:00 [facility] 65+ Influenza Virus 2021-07-11 Completed [facility] Vaccine,quad 00:00:00 [facility] 65+ Influenza Virus 2021-07-11 Completed [facility] Vaccine,quad 00:00:00 [facility] 65+ Influenza Virus 2021-07-11 Completed [facility] Vaccine,quad 00:00:00 [facility] 65+ Influenza Virus 2021-07-11 Completed [facility] Vaccine,quad 00:00:00 [facility] 65+ SARS-COV-2 COVID-19 2021-03-20 Completed [facility] of PFIZER VACCINE 00:00:00 [facility] SARS-COV-2 COVID-19 2021-03-20 Completed [facility] rs[facility] of PFIZER VACCINE 00:00:00 [facility] SARS-COV-2 COVID-19 2021-03-20 Completed [facility] of PFIZER VACCINE 00:00:00 [facility] SARS-COV-2 COVID-19 2021-03-20 Completed [facility] of PFIZER VACCINE 00:00:00 [facility] SARS-COV-2 COVID-19 2021-03-20 Completed [facility] of PFIZER VACCINE 00:00:00 [facility] SARS-COV-2 COVID-19 2021-03-20 Completed [facility] of PFIZER VACCINE 00:00:00 [facility] SARS-COV-2 COVID-19 2021-03-20 Completed [facility] of PFIZER VACCINE 00:00:00 [facility] SARS-COV-2 COVID-19 2021-03-20 Completed [facility] of PFIZER VACCINE 00:00:00 [facility] SARS-COV-2 COVID-19 2021-03-20 Completed [facility] of PFIZER VACCINE 00:00:00 [facility] SARS-COV-2 COVID-19 2021-03-20 Completed [facility] of PFIZER VACCINE 00:00:00 [facility] SARS-COV-2 COVID-19 2021-03-20 Completed [facility] of PFIZER VACCINE 00:00:00 [facility] SARS-COV-2 COVID-19 2021-03-20 Completed [facility] of PFIZER VACCINE 00:00:00 [facility] SARS-COV-2 COVID-19 2021-03-20 Completed [facility] of PFIZER VACCINE 00:00:00 [facility] SARS-COV-2 COVID-19 2021-03-20 Completed [facility]ACCINE 00:00:00 [facility] SARS-COV-2 COVID-19 2021-03-20 Completed [facility]FIZER VACCINE 00:00:00 [facility] SARS-COV-2 COVID-19 2021-03-20 Completed [facility] VACCINE 00:00:00 [facility] SARS-COV-2 COVID-19 2021-03-20 Completed [facility]ZER VACCINE 00:00:00 [facility] SARS-COV-2 COVID-19 2021-03-20 Completed [facility]FIZER VACCINE 00:00:00 [facility] SARS-COV-2 COVID-19 2021-03-20 Completed [facility] PFIZER VACCINE 00:00:00 [facility] SARS-COV-2 COVID-19 2021-03-20 Completed [facility] PFIZER VACCINE 00:00:00 [facility] SARS-COV-2 COVID-19 2021-03-20 Completed [facility]FIZ[facility] VACCINE 00:00:00 [facility] SARS-COV-2 COVID-19 2021-03-20 Completed [facility] PFIZER VACCINE 00:00:00 [facility] SARS-COV-2 COVID-19 2021-03-20 Completed [facility] PFIZER VACCINE 00:00:00 [facility] SARS-COV-2 COVID-19 2021-03-20 Completed [facility]ACCINE 00:00:00 [facility] SARS-COV-2 COVID-19 2021-03-20 Completed [facility] PFIZER VACCINE 00:00:00 [facility] SARS-COV-2 COVID-19 2021-03-20 Completed [facility] PFIZER VACCINE 00:00:00 [facility] SARS-COV-2 COVID-19 2021-03-20 Completed [facility] PFIZER VACCINE 00:00:00 [facility] SARS-COV-2 COVID-19 2021-03-20 Completed [facility] PFIZER VACCINE 00:00:00 [facility] SARS-COV-2 COVID-19 2021-03-20 Completed [facility] PFIZER VACCINE 00:00:00 [facility] SARS-COV-2 COVID-19 2021-03-20 Completed [facility] PFIZER VACCINE 00:00:00 [facility] SARS-COV-2 COVID-19 2021-03-20 Completed [facility] PFIZER VACCINE 00:00:00 [facility] SARS-COV-2 COVID-19 2021-03-20 Completed [facility] PFIZER VACCINE 00:00:00 [facility] SARS-COV-2 COVID-19 2021-03-20 Completed [facility] PFIZER VACCINE 00:00:00 [facility] SARS-COV-2 COVID-19 2021-03-20 Completed [facility] PFIZER VACCINE 00:00:00 [facility] SARS-COV-2 COVID-19 2021-03-20 Completed [facility] PFIZER VACCINE 00:00:00 [facility] SARS-COV-2 COVID-19 2021-03-20 Completed [facility] PFIZER VACCINE 00:00:00 [facility] SARS-COV-2 COVID-19 2021-03-20 Completed [facility] PFIZER VACCINE 00:00:00 [facility] SARS-COV-2 COVID-19 2021-03-20 Completed [facility] PFIZER VACCINE 00:00:00 [facility] SARS-COV-2 COVID-19 2021-03-20 Completed [facility] PFIZER VACCINE 00:00:00 [facility] SARS-COV-2 COVID-19 2021-03-20 Completed [facility] PFIZER VACCINE 00:00:00 [facility] SARS-COV-2 COVID-19 2021-03-20 Completed [facility] PFIZER VACCINE 00:00:00 [facility] SARS-COV-2 COVID-19 2021-03-20 Completed [facility] PFIZER VACCINE 00:00:00 [facility] SARS-COV-2 COVID-19 2021-03-20 Completed [facility] PFIZER VACCINE 00:00:00 [facility] SARS-COV-2 COVID-19 2021-03-20 Completed [facility] PFIZER VACCINE 00:00:00 [facility] SARS-COV-2 COVID-19 2021-03-20 Completed [facility] PFIZER VACCINE 00:00:00 [facility] SARS-COV-2 COVID-19 2021-03-20 Completed [facility] PFIZER VACCINE 00:00:00 [facility] SARS-COV-2 COVID-19 2021-03-20 Completed [facility] PFIZER VACCINE 00:00:00 [facility] SARS-COV-2 COVID-19 2021-03-20 Completed [facility] PFIZER VACCINE 00:00:00 [facility] SARS-COV-2 COVID-19 2021-03-20 Completed [facility] PFIZER VACCINE 00:00:00 [facility] SARS-COV-2 COVID-19 2021-03-20 Completed [facility] PFIZER VACCINE 00:00:00 [facility] SARS-COV-2 COVID-19 2021-03-20 Completed [facility] PFIZER VACCINE 00:00:00 [facility] SARS-COV-2 COVID-19 2021-03-20 Completed [facility] PFIZER VACCINE 00:00:00 [facility] SARS-COV-2 COVID-19 2021-03-20 Completed [facility] PFIZER VACCINE 00:00:00 [facility] SARS-COV-2 COVID-19 2021-03-20 Completed [facility] PFIZER VACCINE 00:00:00 [facility] SARS-COV-2 COVID-19 2021-03-20 Completed [facility] PFIZER VACCINE 00:00:00 [facility] SARS-COV-2 COVID-19 2021-03-20 Completed [facility] PFIZER VACCINE 00:00:00 [facility] SARS-COV-2 COVID-19 2021-03-20 Completed [facility] PFIZER VACCINE 00:00:00 [facility] SARS-COV-2 COVID-19 2021-03-20 Completed [facility] PFIZER VACCINE 00:00:00 [facility] SARS-COV-2 COVID-19 2021-03-20 Completed [facility] PFIZER VACCINE 00:00:00 [facility] SARS-COV-2 COVID-19 2021-03-20 Completed [facility] PFIZER VACCINE 00:00:00 [facility] SARS-COV-2 COVID-19 2021-03-20 Completed [facility] PFIZER VACCINE 00:00:00 [facility] SARS-COV-2 COVID-19 2021-03-20 Completed [facility] PFIZER VACCINE 00:00:00 [facility] SARS-COV-2 COVID-19 2021-03-20 Completed [facility] PFIZER VACCINE 00:00:00 [facility] SARS-COV-2 COVID-19 2021-03-20 Completed [facility] PFIZER VACCINE 00:00:00 [facility] SARS-COV-2 COVID-19 2021-03-20 Completed [facility] PFIZER VACCINE 00:00:00 [facility] SARS-COV-2 COVID-19 2021-03-20 Completed [facility] PFIZER VACCINE 00:00:00 [facility] SARS-COV-2 COVID-19 2021-03-20 Completed [facility] PFIZER VACCINE 00:00:00 [facility] SARS-COV-2 COVID-19 2021-03-20 Completed [facility] PFIZER VACCINE 00:00:00 [facility] SARS-COV-2 COVID-19 2021-03-20 Completed [facility] PFIZER VACCINE 00:00:00 [facility] SARS-COV-2 COVID-19 2021-03-20 Completed [facility] PFIZER VACCINE 00:00:00 [facility] SARS-COV-2 COVID-19 2021-03-20 Completed [facility] PFIZER VACCINE 00:00:00 [facility] SARS-COV-2 COVID-19 2021-03-20 Completed [facility] PFIZER VACCINE 00:00:00 [facility] SARS-COV-2 COVID-19 2021-03-20 Completed [facility] PFIZER VACCINE 00:00:00 [facility] SARS-COV-2 COVID-19 2021-03-20 Completed [facility] PFIZER VACCINE 00:00:00 [facility] SARS-COV-2 COVID-19 2021-03-20 Completed [facility] PFIZER VACCINE 00:00:00 [facility] SARS-COV-2 COVID-19 2021-03-20 Completed [facility] PFIZER VACCINE 00:00:00 [facility] SARS-COV-2 COVID-19 2021-03-20 Completed [facility] PFIZER VACCINE 00:00:00 [facility] SARS-COV-2 COVID-19 2021-03-20 Completed [facility] PFIZER VACCINE 00:00:00 [facility] SARS-COV-2 COVID-19 2021-03-20 Completed [facility] PFIZER VACCINE 00:00:00 [facility] SARS-COV-2 COVID-19 2021-03-20 Completed [facility] PFIZER VACCINE 00:00:00 [facility] SARS-COV-2 COVID-19 2021-03-20 Completed [facility] PFIZER VACCINE 00:00:00 [facility] SARS-COV-2 COVID-19 2021-03-20 Completed [facility] PFIZER VACCINE 00:00:00 [facility] SARS-COV-2 COVID-19 2021-03-20 Completed [facility] PFIZER VACCINE 00:00:00 [facility] SARS-COV-2 COVID-19 2021-03-20 Completed [facility] PFIZER VACCINE 00:00:00 [facility] SARS-COV-2 COVID-19 2021-03-20 Completed [facility] PFIZER VACCINE 00:00:00 [facility] SARS-COV-2 COVID-19 2021-03-20 Completed [facility] PFIZER VACCINE 00:00:00 [facility] SARS-COV-2 COVID-19 2021-03-20 Completed [facility] PFIZER VACCINE 00:00:00 [facility] SARS-COV-2 COVID-19 2021-03-20 Completed [facility] PFIZER VACCINE 00:00:00 [facility] SARS-COV-2 COVID-19 2021-03-20 Completed [facility] PFIZER VACCINE 00:00:00 [facility] SARS-COV-2 COVID-19 2021-03-20 Completed [facility] PFIZER VACCINE 00:00:00 [facility] SARS-COV-2 COVID-19 2021-03-20 Completed [facility] PFIZER VACCINE 00:00:00 [facility] SARS-COV-2 COVID-19 2021-03-20 Completed [facility] PFIZER VACCINE 00:00:00 [facility] SARS-COV-2 COVID-19 2021-03-20 Completed [facility] PFIZER VACCINE 00:00:00 [facility] SARS-COV-2 COVID-19 2021-03-20 Completed [facility] PFIZER VACCINE 00:00:00 [facility] SARS-COV-2 COVID-19 2021-03-20 Completed [facility] PFIZER VACCINE 00:00:00 [facility] SARS-COV-2 COVID-19 2021-03-20 Completed [facility] PFIZER VACCINE 00:00:00 [facility] SARS-COV-2 COVID-19 2021-03-20 Completed [facility] PFIZER VACCINE 00:00:00 [facility] SARS-COV-2 COVID-19 2021-03-20 Completed [facility] PFIZER VACCINE 00:00:00 [facility] SARS-COV-2 COVID-19 2021-03-20 Completed [facility] PFIZER VACCINE 00:00:00 [facility] SARS-COV-2 COVID-19 2021-03-20 Completed [facility] PFIZER VACCINE 00:00:00 [facility] SARS-COV-2 COVID-19 2021-03-20 Completed [facility] PFIZER VACCINE 00:00:00 [facility] SARS-COV-2 COVID-19 2021-03-20 Completed [facility] PFIZER VACCINE 00:00:00 [facility] SARS-COV-2 COVID-19 2021-03-20 Completed [facility] PFIZER VACCINE 00:00:00 [facility] SARS-COV-2 COVID-19 2021-03-20 Completed [facility] PFIZER VACCINE 00:00:00 [facility] SARS-COV-2 COVID-19 2021-03-20 Completed [facility] PFIZER VACCINE 00:00:00 [facility] SARS-COV-2 COVID-19 2021-03-20 Completed [facility] PFIZER VACCINE 00:00:00 [facility] SARS-COV-2 COVID-19 2021-03-20 Completed [facility] PFIZER VACCINE 00:00:00 [facility] SARS-COV-2 COVID-19 2021-03-20 Completed [facility] PFIZER VACCINE 00:00:00 [facility] SARS-COV-2 COVID-19 2021-03-20 Completed [facility] PFIZER VACCINE 00:00:00 [facility] SARS-COV-2 COVID-19 2021-03-20 Completed [facility] PFIZER VACCINE 00:00:00 [facility] SARS-COV-2 COVID-19 2021-03-20 Completed [facility] PFIZER VACCINE 00:00:00 [facility] SARS-COV-2 COVID-19 2021-03-20 Completed [facility] PFIZER VACCINE 00:00:00 [facility] SARS-COV-2 COVID-19 2021-03-20 Completed [facility] PFIZER VACCINE 00:00:00 [facility] SARS-COV-2 COVID-19 2021-03-20 Completed [facility] PFIZER VACCINE 00:00:00 [facility] SARS-COV-2 COVID-19 2021-03-20 Completed [facility] PFIZER VACCINE 00:00:00 [facility] SARS-COV-2 COVID-19 2021-03-20 Completed [facility] PFIZER VACCINE 00:00:00 [facility] SARS-COV-2 COVID-19 2021-03-20 Completed [facility] PFIZER VACCINE 00:00:00 [facility] SARS-COV-2 COVID-19 2021-03-20 Completed [facility] PFIZER VACCINE 00:00:00 [facility] SARS-COV-2 COVID-19 2021-03-20 Completed [facility] PFIZER VACCINE 00:00:00 [facility] SARS-COV-2 COVID-19 2021-03-20 Completed [facility] PFIZER VACCINE 00:00:00 [facility] SARS-COV-2 COVID-19 2021-03-20 Completed [facility] PFIZER VACCINE 00:00:00 [facility] SARS-COV-2 COVID-19 2021-03-20 Completed [facility] PFIZER VACCINE 00:00:00 [facility] SARS-COV-2 COVID-19 2021-03-20 Completed [facility] PFIZER VACCINE 00:00:00 [facility] SARS-COV-2 COVID-19 2021-03-20 Completed [facility] PFIZER VACCINE 00:00:00 [facility] SARS-COV-2 COVID-19 2020-08-21 Completed [facility] PFIZER VACCINE 00:00:00 [facility] SARS-COV-2 COVID-19 2020-08-21 Completed [facility] PFIZER VACCINE 00:00:00 [facility] SARS-COV-2 COVID-19 2020-08-21 Completed [facility] PFIZER VACCINE 00:00:00 [facility] SARS-COV-2 COVID-19 2020-08-21 Completed [facility] PFIZER VACCINE 00:00:00 [facility] SARS-COV-2 COVID-19 2020-08-21 Completed [facility] PFIZER VACCINE 00:00:00 [facility] SARS-COV-2 COVID-19 2020-08-21 Completed [facility] PFIZER VACCINE 00:00:00 [facility] SARS-COV-2 COVID-19 2020-08-21 Completed [facility] PFIZER VACCINE 00:00:00 [facility] SARS-COV-2 COVID-19 2020-08-21 Completed [facility] PFIZER VACCINE 00:00:00 [facility] SARS-COV-2 COVID-19 2020-08-21 Completed [facility] PFIZER VACCINE 00:00:00 [facility] SARS-COV-2 COVID-19 2020-08-21 Completed [facility] PFIZER VACCINE 00:00:00 [facility] SARS-COV-2 COVID-19 2020-08-21 Completed [facility] PFIZER VACCINE 00:00:00 [facility] SARS-COV-2 COVID-19 2020-08-21 Completed [facility] PFIZER VACCINE 00:00:00 [facility] SARS-COV-2 COVID-19 2020-08-21 Completed [facility] PFIZER VACCINE 00:00:00 [facility] SARS-COV-2 COVID-19 2020-08-21 Completed [facility] PFIZER VACCINE 00:00:00 [facility] SARS-COV-2 COVID-19 2020-08-21 Completed [facility] PFIZER VACCINE 00:00:00 [facility] SARS-COV-2 COVID-19 2020-08-21 Completed [facility] PFIZER VACCINE 00:00:00 [facility] SARS-COV-2 COVID-19 2020-08-21 Completed [facility] PFIZER VACCINE 00:00:00 [facility] SARS-COV-2 COVID-19 2020-08-21 Completed [facility] PFIZER VACCINE 00:00:00 [facility] SARS-COV-2 COVID-19 2020-08-21 Completed [facility] PFIZER VACCINE 00:00:00 [facility] SARS-COV-2 COVID-19 2020-08-21 Completed [facility] PFIZER VACCINE 00:00:00 [facility] SARS-COV-2 COVID-19 2020-08-21 Completed [facility] PFIZER VACCINE 00:00:00 [facility] SARS-COV-2 COVID-19 2020-08-21 Completed [facility] PFIZER VACCINE 00:00:00 [facility] SARS-COV-2 COVID-19 2020-08-21 Completed [facility] PFIZER VACCINE 00:00:00 [facility] SARS-COV-2 COVID-19 2020-08-21 Completed [facility] PFIZER VACCINE 00:00:00 [facility] SARS-COV-2 COVID-19 2020-08-21 Completed [facility] PFIZER VACCINE 00:00:00 [facility] SARS-COV-2 COVID-19 2020-08-21 Completed [facility] PFIZER VACCINE 00:00:00 [facility] SARS-COV-2 COVID-19 2020-08-21 Completed [facility] PFIZER VACCINE 00:00:00 [facility] SARS-COV-2 COVID-19 2020-08-21 Completed [facility] PFIZER VACCINE 00:00:00 [facility] SARS-COV-2 COVID-19 2020-08-21 Completed [facility] PFIZER VACCINE 00:00:00 [facility] SARS-COV-2 COVID-19 2020-08-21 Completed [facility] PFIZER VACCINE 00:00:00 [facility] SARS-COV-2 COVID-19 2020-08-21 Completed [facility] PFIZER VACCINE 00:00:00 [facility] SARS-COV-2 COVID-19 2020-08-21 Completed [facility] PFIZER VACCINE 00:00:00 [facility] SARS-COV-2 COVID-19 2020-08-21 Completed [facility] PFIZER VACCINE 00:00:00 [facility] SARS-COV-2 COVID-19 2020-08-21 Completed [facility] PFIZER VACCINE 00:00:00 [facility] SARS-COV-2 COVID-19 2020-08-21 Completed [facility] PFIZER VACCINE 00:00:00 [facility] SARS-COV-2 COVID-19 2020-08-21 Completed [facility] PFIZER VACCINE 00:00:00 [facility] SARS-COV-2 COVID-19 2020-08-21 Completed [facility] PFIZER VACCINE 00:00:00 [facility] SARS-COV-2 COVID-19 2020-08-21 Completed [facility] PFIZER VACCINE 00:00:00 [facility] SARS-COV-2 COVID-19 2020-08-21 Completed [facility] PFIZER VACCINE 00:00:00 [facility] SARS-COV-2 COVID-19 2020-08-21 Completed [facility] PFIZER VACCINE 00:00:00 [facility] SARS-COV-2 COVID-19 2020-08-21 Completed [facility] PFIZER VACCINE 00:00:00 [facility] SARS-COV-2 COVID-19 2020-08-21 Completed [facility] PFIZER VACCINE 00:00:00 [facility] SARS-COV-2 COVID-19 2020-08-21 Completed [facility] PFIZER VACCINE 00:00:00 [facility] SARS-COV-2 COVID-19 2020-08-21 Completed [facility] PFIZER VACCINE 00:00:00 [facility] SARS-COV-2 COVID-19 2020-08-21 Completed [facility] PFIZER VACCINE 00:00:00 [facility] SARS-COV-2 COVID-19 2020-08-21 Completed [facility] PFIZER VACCINE 00:00:00 [facility] SARS-COV-2 COVID-19 2020-08-21 Completed [facility] PFIZER VACCINE 00:00:00 [facility] SARS-COV-2 COVID-19 2020-08-21 Completed [facility] PFIZER VACCINE 00:00:00 [facility] SARS-COV-2 COVID-19 2020-08-21 Completed [facility] PFIZER VACCINE 00:00:00 [facility] SARS-COV-2 COVID-19 2020-08-21 Completed [facility] PFIZER VACCINE 00:00:00 [facility] SARS-COV-2 COVID-19 2020-08-21 Completed [facility] PFIZER VACCINE 00:00:00 [facility] SARS-COV-2 COVID-19 2020-08-21 Completed [facility] PFIZER VACCINE 00:00:00 [facility] SARS-COV-2 COVID-19 2020-08-21 Completed [facility] PFIZER VACCINE 00:00:00 [facility] SARS-COV-2 COVID-19 2020-08-21 Completed [facility] PFIZER VACCINE 00:00:00 [facility] SARS-COV-2 COVID-19 2020-08-21 Completed [facility] PFIZER VACCINE 00:00:00 [facility] SARS-COV-2 COVID-19 2020-08-21 Completed [facility] PFIZER VACCINE 00:00:00 [facility] SARS-COV-2 COVID-19 2020-08-21 Completed [facility] PFIZER VACCINE 00:00:00 [facility] SARS-COV-2 COVID-19 2020-08-21 Completed [facility] PFIZER VACCINE 00:00:00 [facility] SARS-COV-2 COVID-19 2020-08-21 Completed [facility] PFIZER VACCINE 00:00:00 [facility] SARS-COV-2 COVID-19 2020-08-21 Completed [facility] PFIZER VACCINE 00:00:00 [facility] SARS-COV-2 COVID-19 2020-08-21 Completed [facility] PFIZER VACCINE 00:00:00 [facility] SARS-COV-2 COVID-19 2020-08-21 Completed [facility] PFIZER VACCINE 00:00:00 [facility] SARS-COV-2 COVID-19 2020-08-21 Completed [facility] PFIZER VACCINE 00:00:00 [facility] SARS-COV-2 COVID-19 2020-08-21 Completed [facility] PFIZER VACCINE 00:00:00 [facility] SARS-COV-2 COVID-19 2020-08-21 Completed [facility] PFIZER VACCINE 00:00:00 [facility] SARS-COV-2 COVID-19 2020-08-21 Completed [facility] PFIZER VACCINE 00:00:00 [facility] SARS-COV-2 COVID-19 2020-08-21 Completed [facility] PFIZER VACCINE 00:00:00 [facility] SARS-COV-2 COVID-19 2020-08-21 Completed [facility] PFIZER VACCINE 00:00:00 [facility] SARS-COV-2 COVID-19 2020-08-21 Completed [facility] PFIZER VACCINE 00:00:00 [facility] SARS-COV-2 COVID-19 2020-08-21 Completed [facility] PFIZER VACCINE 00:00:00 [facility] SARS-COV-2 COVID-19 2020-08-21 Completed [facility] PFIZER VACCINE 00:00:00 [facility] SARS-COV-2 COVID-19 2020-08-21 Completed [facility] PFIZER VACCINE 00:00:00 [facility] SARS-COV-2 COVID-19 2020-08-21 Completed [facility] PFIZER VACCINE 00:00:00 [facility] SARS-COV-2 COVID-19 2020-08-21 Completed [facility] PFIZER VACCINE 00:00:00 [facility] SARS-COV-2 COVID-19 2020-08-21 Completed [facility] PFIZER VACCINE 00:00:00 [facility] SARS-COV-2 COVID-19 2020-08-21 Completed [facility] PFIZER VACCINE 00:00:00 [facility] SARS-COV-2 COVID-19 2020-08-21 Completed [facility] PFIZER VACCINE 00:00:00 [facility] SARS-COV-2 COVID-19 2020-08-21 Completed [facility] PFIZER VACCINE 00:00:00 [facility] SARS-COV-2 COVID-19 2020-08-21 Completed [facility] PFIZER VACCINE 00:00:00 [facility] SARS-COV-2 COVID-19 2020-08-21 Completed [facility] PFIZER VACCINE 00:00:00 [facility] SARS-COV-2 COVID-19 2020-08-21 Completed [facility] PFIZER VACCINE 00:00:00 [facility] SARS-COV-2 COVID-19 2020-08-21 Completed [facility] PFIZER VACCINE 00:00:00 [facility] SARS-COV-2 COVID-19 2020-08-21 Completed [facility] PFIZER VACCINE 00:00:00 [facility] SARS-COV-2 COVID-19 2020-08-21 Completed [facility] PFIZER VACCINE 00:00:00 [facility] SARS-COV-2 COVID-19 2020-08-21 Completed [facility] PFIZER VACCINE 00:00:00 [facility] SARS-COV-2 COVID-19 2020-08-21 Completed [facility] PFIZER VACCINE 00:00:00 [facility] SARS-COV-2 COVID-19 2020-08-21 Completed [facility] PFIZER VACCINE 00:00:00 [facility] SARS-COV-2 COVID-19 2020-08-21 Completed [facility] PFIZER VACCINE 00:00:00 [facility] SARS-COV-2 COVID-19 2020-08-21 Completed [facility] PFIZER VACCINE 00:00:00 [facility] SARS-COV-2 COVID-19 2020-08-21 Completed [facility] PFIZER VACCINE 00:00:00 [facility] SARS-COV-2 COVID-19 2020-08-21 Completed [facility] PFIZER VACCINE 00:00:00 [facility] SARS-COV-2 COVID-19 2020-08-21 Completed [facility] PFIZER VACCINE 00:00:00 [facility] SARS-COV-2 COVID-19 2020-08-21 Completed [facility] PFIZER VACCINE 00:00:00 [facility] SARS-COV-2 COVID-19 2020-08-21 Completed [facility] PFIZER VACCINE 00:00:00 [facility] SARS-COV-2 COVID-19 2020-08-21 Completed [facility] PFIZER VACCINE 00:00:00 [facility] SARS-COV-2 COVID-19 2020-08-21 Completed [facility] PFIZER VACCINE 00:00:00 [facility] SARS-COV-2 COVID-19 2020-08-21 Completed [facility] PFIZER VACCINE 00:00:00 [facility] SARS-COV-2 COVID-19 2020-08-21 Completed [facility] PFIZER VACCINE 00:00:00 [facility] SARS-COV-2 COVID-19 2020-08-21 Completed [facility] PFIZER VACCINE 00:00:00 [facility] SARS-COV-2 COVID-19 2020-08-21 Completed [facility] PFIZER VACCINE 00:00:00 [facility] SARS-COV-2 COVID-19 2020-08-21 Completed [facility] PFIZER VACCINE 00:00:00 [facility] SARS-COV-2 COVID-19 2020-08-21 Completed [facility] PFIZER VACCINE 00:00:00 [facility] SARS-COV-2 COVID-19 2020-08-21 Completed [facility] PFIZER VACCINE 00:00:00 [facility] SARS-COV-2 COVID-19 2020-08-21 Completed [facility] PFIZER VACCINE 00:00:00 [facility] SARS-COV-2 COVID-19 2020-08-21 Completed [facility] PFIZER VACCINE 00:00:00 [facility] SARS-COV-2 COVID-19 2020-08-21 Completed [facility] PFIZER VACCINE 00:00:00 [facility] SARS-COV-2 COVID-19 2020-08-21 Completed [facility] PFIZER VACCINE 00:00:00 [facility] SARS-COV-2 COVID-19 2020-08-21 Completed [facility] PFIZER VACCINE 00:00:00 [facility] SARS-COV-2 COVID-19 2020-08-21 Completed [facility] PFIZER VACCINE 00:00:00 [facility] SARS-COV-2 COVID-19 2020-08-21 Completed [facility] PFIZER VACCINE 00:00:00 [facility] SARS-COV-2 COVID-19 2020-08-21 Completed [facility] PFIZER VACCINE 00:00:00 [facility] SARS-COV-2 COVID-19 2020-08-21 Completed [facility] PFIZER VACCINE 00:00:00 [facility] SARS-COV-2 COVID-19 2020-08-21 Completed [facility] PFIZER VACCINE 00:00:00 [facility] SARS-COV-2 COVID-19 2020-08-21 Completed [facility] PFIZER VACCINE 00:00:00 [facility] SARS-COV-2 COVID-19 2020-08-21 Completed [facility] PFIZER VACCINE 00:00:00 [facility] SARS-COV-2 COVID-19 2020-08-21 Completed [facility] PFIZER VACCINE 00:00:00 [facility] SARS-COV-2 COVID-19 2020-08-21 Completed [facility] PFIZER VACCINE 00:00:00 [facility] SARS-COV-2 COVID-19 2020-08-21 Completed [facility] PFIZER VACCINE 00:00:00 [facility] SARS-COV-2 COVID-19 2020-08-21 Completed [facility] PFIZER VACCINE 00:00:00 [facility] SARS-COV-2 COVID-19 2020-08-21 Completed [facility] PFIZER VACCINE 00:00:00 [facility] SARS-COV-2 COVID-19 2020-08-21 Completed [facility] PFIZER VACCINE 00:00:00 [facility] SARS-COV-2 COVID-19 2020-08-21 Completed [facility] PFIZER VACCINE 00:00:00 [facility] SARS-COV-2 COVID-19 2020-08-21 Completed [facility] PFIZER VACCINE 00:00:00 [facility] SARS-COV-2 COVID-19 2020-08-21 Completed [facility] PFIZER VACCINE 00:00:00 [facility] SARS-COV-2 COVID-19 2020-08-21 Completed [facility] PFIZER VACCINE 00:00:00 [facility] SARS-COV-2 COVID-19 2020-08-21 Completed [facility] PFIZER VACCINE 00:00:00 [facility] SARS-COV-2 COVID-19 2020-08-21 Completed [facility] PFIZER VACCINE 00:00:00 [facility] SARS-COV-2 COVID-19 2020-07-31 Completed [facility] PFIZER VACCINE 00:00:00 [facility] SARS-COV-2 COVID-19 2020-07-31 Completed [facility] PFIZER VACCINE 00:00:00 [facility] SARS-COV-2 COVID-19 2020-07-31 Completed [facility] PFIZER VACCINE 00:00:00 [facility] SARS-COV-2 COVID-19 2020-07-31 Completed [facility] PFIZER VACCINE 00:00:00 [facility] SARS-COV-2 COVID-19 2020-07-31 Completed [facility] PFIZER VACCINE 00:00:00 [facility] SARS-COV-2 COVID-19 2020-07-31 Completed [facility] PFIZER VACCINE 00:00:00 [facility] SARS-COV-2 COVID-19 2020-07-31 Completed [facility] PFIZER VACCINE 00:00:00 [facility] SARS-COV-2 COVID-19 2020-07-31 Completed [facility] PFIZER VACCINE 00:00:00 [facility] SARS-COV-2 COVID-19 2020-07-31 Completed [facility] PFIZER VACCINE 00:00:00 [facility] SARS-COV-2 COVID-19 2020-07-31 Completed [facility] PFIZER VACCINE 00:00:00 [facility] SARS-COV-2 COVID-19 2020-07-31 Completed [facility] PFIZER VACCINE 00:00:00 [facility] SARS-COV-2 COVID-19 2020-07-31 Completed [facility] PFIZER VACCINE 00:00:00 [facility] SARS-COV-2 COVID-19 2020-07-31 Completed [facility] PFIZER VACCINE 00:00:00 [facility] SARS-COV-2 COVID-19 2020-07-31 Completed [facility] PFIZER VACCINE 00:00:00 [facility] SARS-COV-2 COVID-19 2020-07-31 Completed [facility] PFIZER VACCINE 00:00:00 [facility] SARS-COV-2 COVID-19 2020-07-31 Completed [facility] PFIZER VACCINE 00:00:00 [facility] SARS-COV-2 COVID-19 2020-07-31 Completed [facility] PFIZER VACCINE 00:00:00 [facility] SARS-COV-2 COVID-19 2020-07-31 Completed [facility] PFIZER VACCINE 00:00:00 [facility] SARS-COV-2 COVID-19 2020-07-31 Completed [facility] PFIZER VACCINE 00:00:00 [facility] SARS-COV-2 COVID-19 2020-07-31 Completed [facility] PFIZER VACCINE 00:00:00 [facility] SARS-COV-2 COVID-19 2020-07-31 Completed [facility] PFIZER VACCINE 00:00:00 [facility] SARS-COV-2 COVID-19 2020-07-31 Completed [facility] PFIZER VACCINE 00:00:00 [facility] SARS-COV-2 COVID-19 2020-07-31 Completed [facility] PFIZER VACCINE 00:00:00 [facility] SARS-COV-2 COVID-19 2020-07-31 Completed [facility] PFIZER VACCINE 00:00:00 [facility] SARS-COV-2 COVID-19 2020-07-31 Completed [facility] PFIZER VACCINE 00:00:00 [facility] SARS-COV-2 COVID-19 2020-07-31 Completed [facility] PFIZER VACCINE 00:00:00 [facility] SARS-COV-2 COVID-19 2020-07-31 Completed [facility] PFIZER VACCINE 00:00:00 [facility] SARS-COV-2 COVID-19 2020-07-31 Completed [facility] PFIZER VACCINE 00:00:00 [facility] SARS-COV-2 COVID-19 2020-07-31 Completed [facility] PFIZER VACCINE 00:00:00 [facility] SARS-COV-2 COVID-19 2020-07-31 Completed [facility] PFIZER VACCINE 00:00:00 [facility] SARS-COV-2 COVID-19 2020-07-31 Completed [facility] PFIZER VACCINE 00:00:00 [facility] SARS-COV-2 COVID-19 2020-07-31 Completed [facility] PFIZER VACCINE 00:00:00 [facility] SARS-COV-2 COVID-19 2020-07-31 Completed [facility] PFIZER VACCINE 00:00:00 [facility] SARS-COV-2 COVID-19 2020-07-31 Completed [facility] PFIZER VACCINE 00:00:00 [facility] SARS-COV-2 COVID-19 2020-07-31 Completed [facility] PFIZER VACCINE 00:00:00 [facility] SARS-COV-2 COVID-19 2020-07-31 Completed [facility] PFIZER VACCINE 00:00:00 [facility] SARS-COV-2 COVID-19 2020-07-31 Completed [facility] PFIZER VACCINE 00:00:00 [facility] SARS-COV-2 COVID-19 2020-07-31 Completed [facility] PFIZER VACCINE 00:00:00 [facility] SARS-COV-2 COVID-19 2020-07-31 Completed [facility] PFIZER VACCINE 00:00:00 [facility] SARS-COV-2 COVID-19 2020-07-31 Completed [facility] PFIZER VACCINE 00:00:00 [facility] SARS-COV-2 COVID-19 2020-07-31 Completed [facility] PFIZER VACCINE 00:00:00 [facility] SARS-COV-2 COVID-19 2020-07-31 Completed [facility] PFIZER VACCINE 00:00:00 [facility] SARS-COV-2 COVID-19 2020-07-31 Completed [facility] PFIZER VACCINE 00:00:00 [facility] SARS-COV-2 COVID-19 2020-07-31 Completed [facility] PFIZER VACCINE 00:00:00 [facility] SARS-COV-2 COVID-19 2020-07-31 Completed [facility] PFIZER VACCINE 00:00:00 [facility] SARS-COV-2 COVID-19 2020-07-31 Completed [facility] PFIZER VACCINE 00:00:00 [facility] SARS-COV-2 COVID-19 2020-07-31 Completed [facility] PFIZER VACCINE 00:00:00 [facility] SARS-COV-2 COVID-19 2020-07-31 Completed [facility] PFIZER VACCINE 00:00:00 [facility] SARS-COV-2 COVID-19 2020-07-31 Completed [facility] PFIZER VACCINE 00:00:00 [facility] SARS-COV-2 COVID-19 2020-07-31 Completed [facility] PFIZER VACCINE 00:00:00 [facility] SARS-COV-2 COVID-19 2020-07-31 Completed [facility] PFIZER VACCINE 00:00:00 [facility] SARS-COV-2 COVID-19 2020-07-31 Completed [facility] PFIZER VACCINE 00:00:00 [facility] SARS-COV-2 COVID-19 2020-07-31 Completed [facility] PFIZER VACCINE 00:00:00 [facility] SARS-COV-2 COVID-19 2020-07-31 Completed [facility] PFIZER VACCINE 00:00:00 [facility] SARS-COV-2 COVID-19 2020-07-31 Completed [facility] PFIZER VACCINE 00:00:00 [facility] SARS-COV-2 COVID-19 2020-07-31 Completed [facility] PFIZER VACCINE 00:00:00 [facility] SARS-COV-2 COVID-19 2020-07-31 Completed [facility] PFIZER VACCINE 00:00:00 [facility] SARS-COV-2 COVID-19 2020-07-31 Completed [facility] PFIZER VACCINE 00:00:00 [facility] SARS-COV-2 COVID-19 2020-07-31 Completed [facility] PFIZER VACCINE 00:00:00 [facility] SARS-COV-2 COVID-19 2020-07-31 Completed [facility] PFIZER VACCINE 00:00:00 [facility] SARS-COV-2 COVID-19 2020-07-31 Completed [facility] PFIZER VACCINE 00:00:00 [facility] SARS-COV-2 COVID-19 2020-07-31 Completed [facility] PFIZER VACCINE 00:00:00 [facility] SARS-COV-2 COVID-19 2020-07-31 Completed [facility] PFIZER VACCINE 00:00:00 [facility] SARS-COV-2 COVID-19 2020-07-31 Completed [facility] PFIZER VACCINE 00:00:00 [facility] SARS-COV-2 COVID-19 2020-07-31 Completed [facility] PFIZER VACCINE 00:00:00 [facility] SARS-COV-2 COVID-19 2020-07-31 Completed [facility] PFIZER VACCINE 00:00:00 [facility] SARS-COV-2 COVID-19 2020-07-31 Completed [facility] PFIZER VACCINE 00:00:00 [facility] SARS-COV-2 COVID-19 2020-07-31 Completed [facility] PFIZER VACCINE 00:00:00 [facility] SARS-COV-2 COVID-19 2020-07-31 Completed [facility] PFIZER VACCINE 00:00:00 [facility] SARS-COV-2 COVID-19 2020-07-31 Completed [facility] PFIZER VACCINE 00:00:00 [facility] SARS-COV-2 COVID-19 2020-07-31 Completed [facility] PFIZER VACCINE 00:00:00 [facility] SARS-COV-2 COVID-19 2020-07-31 Completed [facility] PFIZER VACCINE 00:00:00 [facility] SARS-COV-2 COVID-19 2020-07-31 Completed [facility] PFIZER VACCINE 00:00:00 [facility] SARS-COV-2 COVID-19 2020-07-31 Completed [facility] PFIZER VACCINE 00:00:00 [facility] SARS-COV-2 COVID-19 2020-07-31 Completed [facility] PFIZER VACCINE 00:00:00 [facility] SARS-COV-2 COVID-19 2020-07-31 Completed [facility] PFIZER VACCINE 00:00:00 [facility] SARS-COV-2 COVID-19 2020-07-31 Completed [facility] PFIZER VACCINE 00:00:00 [facility] SARS-COV-2 COVID-19 2020-07-31 Completed [facility] PFIZER VACCINE 00:00:00 [facility] SARS-COV-2 COVID-19 2020-07-31 Completed [facility] PFIZER VACCINE 00:00:00 [facility] SARS-COV-2 COVID-19 2020-07-31 Completed [facility] PFIZER VACCINE 00:00:00 [facility] SARS-COV-2 COVID-19 2020-07-31 Completed [facility] PFIZER VACCINE 00:00:00 [facility] SARS-COV-2 COVID-19 2020-07-31 Completed [facility] PFIZER VACCINE 00:00:00 [facility] SARS-COV-2 COVID-19 2020-07-31 Completed [facility] PFIZER VACCINE 00:00:00 [facility] SARS-COV-2 COVID-19 2020-07-31 Completed [facility] PFIZER VACCINE 00:00:00 [facility] SARS-COV-2 COVID-19 2020-07-31 Completed [facility] PFIZER VACCINE 00:00:00 [facility] SARS-COV-2 COVID-19 2020-07-31 Completed [facility] PFIZER VACCINE 00:00:00 [facility] SARS-COV-2 COVID-19 2020-07-31 Completed [facility] PFIZER VACCINE 00:00:00 [facility] SARS-COV-2 COVID-19 2020-07-31 Completed [facility] PFIZER VACCINE 00:00:00 [facility] SARS-COV-2 COVID-19 2020-07-31 Completed [facility] PFIZER VACCINE 00:00:00 [facility] SARS-COV-2 COVID-19 2020-07-31 Completed [facility] PFIZER VACCINE 00:00:00 [facility] SARS-COV-2 COVID-19 2020-07-31 Completed [facility] PFIZER VACCINE 00:00:00 [facility] SARS-COV-2 COVID-19 2020-07-31 Completed [facility] PFIZER VACCINE 00:00:00 [facility] SARS-COV-2 COVID-19 2020-07-31 Completed [facility] PFIZER VACCINE 00:00:00 [facility] SARS-COV-2 COVID-19 2020-07-31 Completed [facility] PFIZER VACCINE 00:00:00 [facility] SARS-COV-2 COVID-19 2020-07-31 Completed [facility] PFIZER VACCINE 00:00:00 [facility] SARS-COV-2 COVID-19 2020-07-31 Completed [facility] PFIZER VACCINE 00:00:00 [facility] SARS-COV-2 COVID-19 2020-07-31 Completed [facility] PFIZER VACCINE 00:00:00 [facility] SARS-COV-2 COVID-19 2020-07-31 Completed [facility] PFIZER VACCINE 00:00:00 [facility] SARS-COV-2 COVID-19 2020-07-31 Completed [facility] PFIZER VACCINE 00:00:00 [facility] SARS-COV-2 COVID-19 2020-07-31 Completed [facility] PFIZER VACCINE 00:00:00 [facility] SARS-COV-2 COVID-19 2020-07-31 Completed [facility] PFIZER VACCINE 00:00:00 [facility] SARS-COV-2 COVID-19 2020-07-31 Completed [facility] PFIZER VACCINE 00:00:00 [facility] SARS-COV-2 COVID-19 2020-07-31 Completed [facility] PFIZER VACCINE 00:00:00 [facility] SARS-COV-2 COVID-19 2020-07-31 Completed [facility] PFIZER VACCINE 00:00:00 [facility] SARS-COV-2 COVID-19 2020-07-31 Completed [facility] PFIZER VACCINE 00:00:00 [facility] SARS-COV-2 COVID-19 2020-07-31 Completed [facility] PFIZER VACCINE 00:00:00 [facility] SARS-COV-2 COVID-19 2020-07-31 Completed [facility] PFIZER VACCINE 00:00:00 [facility] SARS-COV-2 COVID-19 2020-07-31 Completed [facility] PFIZER VACCINE 00:00:00 [facility] SARS-COV-2 COVID-19 2020-07-31 Completed [facility] PFIZER VACCINE 00:00:00 [facility] SARS-COV-2 COVID-19 2020-07-31 Completed [facility] PFIZER VACCINE 00:00:00 [facility] SARS-COV-2 COVID-19 2020-07-31 Completed [facility] PFIZER VACCINE 00:00:00 [facility] SARS-COV-2 COVID-19 2020-07-31 Completed [facility] PFIZER VACCINE 00:00:00 [facility] SARS-COV-2 COVID-19 2020-07-31 Completed [facility] PFIZER VACCINE 00:00:00 [facility] SARS-COV-2 COVID-19 2020-07-31 Completed [facility] PFIZER VACCINE 00:00:00 [facility] SARS-COV-2 COVID-19 2020-07-31 Completed [facility] PFIZER VACCINE 00:00:00 [facility] SARS-COV-2 COVID-19 2020-07-31 Completed [facility] PFIZER VACCINE 00:00:00 [facility] SARS-COV-2 COVID-19 2020-07-31 Completed [facility] PFIZER VACCINE 00:00:00 [facility] SARS-COV-2 COVID-19 2020-07-31 Completed [facility] PFIZER VACCINE 00:00:00 [facility] SARS-COV-2 COVID-19 2020-07-31 Completed [facility] PFIZER VACCINE 00:00:00 [facility] SARS-COV-2 COVID-19 2020-07-31 Completed [facility] PFIZER VACCINE 00:00:00 [facility] SARS-COV-2 COVID-19 2020-07-31 Completed [facility] PFIZER VACCINE 00:00:00 [facility] SARS-COV-2 COVID-19 2020-07-31 Completed [facility] PFIZER VACCINE 00:00:00 [facility] SARS-COV-2 COVID-19 2020-07-31 Completed [facility] PFIZER VACCINE 00:00:00 [facility] SARS-COV-2 COVID-19 2020-07-31 Completed [facility] PFIZER VACCINE 00:00:00 [facility] SARS-COV-2 COVID-19 2020-07-31 Completed [facility] PFIZER VACCINE 00:00:00 [facility] SARS-COV-2 COVID-19 2020-07-31 Completed [facility] PFIZER VACCINE 00:00:00 [facility] SARS-COV-2 COVID-19 2020-07-31 Completed [facility] PFIZER VACCINE 00:00:00 [facility] TDAP 2020-07-29 Completed [facility] 00:00:00 [facility] TDAP 2020-07-29 Completed [facility] 00:00:00 [facility] TDAP 2020-07-29 Completed [facility] 00:00:00 [facility] TDAP 2020-07-29 Completed [facility] 00:00:00 [facility] TDAP 2020-07-29 Completed [facility] 00:00:00 [facility] TDAP 2020-07-29 Completed [facility] 00:00:00 [facility] TDAP 2020-07-29 Completed [facility] 00:00:00 [facility] TDAP 2020-07-29 Completed [facility] 00:00:00 [facility] TDAP 2020-07-29 Completed [facility] 00:00:00 [facility] TDAP 2020-07-29 Completed [facility] 00:00:00 [facility] TDAP 2020-07-29 Completed [facility] 00:00:00 [facility] TDAP 2020-07-29 Completed [facility] 00:00:00 [facility] TDAP 2020-07-29 Completed [facility] 00:00:00 [facility] TDAP 2020-07-29 Completed [facility] 00:00:00 [facility] TDAP 2020-07-29 Completed [facility] 00:00:00 [facility] TDAP 2020-07-29 Completed [facility] 00:00:00 [facility] TDAP 2020-07-29 Completed [facility] 00:00:00 [facility] TDAP 2020-07-29 Completed [facility] 00:00:00 [facility] TDAP 2020-07-29 Completed [facility] 00:00:00 [facility] TDAP 2020-07-29 Completed [facility] 00:00:00 [facility] TDAP 2020-07-29 Completed [facility] 00:00:00 [facility] TDAP 2020-07-29 Completed [facility] 00:00:00 [facility] TDAP 2020-07-29 Completed [facility] 00:00:00 [facility] TDAP 2020-07-29 Completed [facility] 00:00:00 [facility] TDAP 2020-07-29 Completed [facility] 00:00:00 [facility] TDAP 2020-07-29 Completed [facility] 00:00:00 [facility] TDAP 2020-07-29 Completed [facility] 00:00:00 [facility] TDAP 2020-07-29 Completed [facility] 00:00:00 [facility] TDAP 2020-07-29 Completed [facility] 00:00:00 [facility] TDAP 2020-07-29 Completed [facility] 00:00:00 [facility] TDAP 2020-07-29 Completed [facility] 00:00:00 [facility] TDAP 2020-07-29 Completed [facility] 00:00:00 [facility] TDAP 2020-07-29 Completed [facility] 00:00:00 [facility] TDAP 2020-07-29 Completed [facility] 00:00:00 [facility] TDAP 2020-07-29 Completed [facility] 00:00:00 [facility] TDAP 2020-07-29 Completed [facility] 00:00:00 [facility] TDAP 2020-07-29 Completed [facility] 00:00:00 [facility] TDAP 2020-07-29 Completed [facility] 00:00:00 [facility] TDAP 2020-07-29 Completed [facility] 00:00:00 [facility] TDAP 2020-07-29 Completed [facility] 00:00:00 [facility] TDAP 2020-07-29 Completed [facility] 00:00:00 [facility] TDAP 2020-07-29 Completed [facility] 00:00:00 [facility] TDAP 2020-07-29 Completed [facility] 00:00:00 [facility] TDAP 2020-07-29 Completed [facility] 00:00:00 [facility] TDAP 2020-07-29 Completed [facility] 00:00:00 [facility] TDAP 2020-07-29 Completed [facility] 00:00:00 [facility] TDAP 2020-07-29 Completed [facility] 00:00:00 [facility] TDAP 2020-07-29 Completed [facility] 00:00:00 [facility] TDAP 2020-07-29 Completed [facility] 00:00:00 [facility] TDAP 2020-07-29 Completed [facility] 00:00:00 [facility] TDAP 2020-07-29 Completed [facility] 00:00:00 [facility] TDAP 2020-07-29 Completed [facility] 00:00:00 [facility] TDAP 2020-07-29 Completed [facility] 00:00:00 [facility] TDAP 2020-07-29 Completed [facility] 00:00:00 [facility] TDAP 2020-07-29 Completed [facility] 00:00:00 [facility] TDAP 2020-07-29 Completed [facility] 00:00:00 [facility] TDAP 2020-07-29 Completed [facility] 00:00:00 [facility] TDAP 2020-07-29 Completed [facility] 00:00:00 [facility] TDAP 2020-07-29 Completed [facility] 00:00:00 [facility] TDAP 2020-07-29 Completed [facility] 00:00:00 [facility] TDAP 2020-07-29 Completed [facility] 00:00:00 [facility] TDAP 2020-07-29 Completed [facility] 00:00:00 [facility] TDAP 2020-07-29 Completed [facility] 00:00:00 [facility] TDAP 2020-07-29 Completed [facility] 00:00:00 [facility] TDAP 2020-07-29 Completed [facility] 00:00:00 [facility] TDAP 2020-07-29 Completed [facility] 00:00:00 [facility] TDAP 2020-07-29 Completed [facility] 00:00:00 [facility] TDAP 2020-07-29 Completed [facility] 00:00:00 [facility] TDAP 2020-07-29 Completed [facility] 00:00:00 [facility] TDAP 2020-07-29 Completed [facility] 00:00:00 [facility] TDAP 2020-07-29 Completed [facility] 00:00:00 [facility] TDAP 2020-07-29 Completed [facility] 00:00:00 [facility] TDAP 2020-07-29 Completed [facility] 00:00:00 [facility] TDAP 2020-07-29 Completed [facility] 00:00:00 [facility] TDAP 2020-07-29 Completed [facility] 00:00:00 [facility] TDAP 2020-07-29 Completed [facility] 00:00:00 [facility] TDAP 2020-07-29 Completed [facility] 00:00:00 [facility] TDAP 2020-07-29 Completed [facility] 00:00:00 [facility] TDAP 2020-07-29 Completed [facility] 00:00:00 [facility] TDAP 2020-07-29 Completed [facility] 00:00:00 [facility] TDAP 2020-07-29 Completed [facility] 00:00:00 [facility] TDAP 2020-07-29 Completed [facility] 00:00:00 [facility] TDAP 2020-07-29 Completed [facility] 00:00:00 [facility] TDAP 2020-07-29 Completed [facility] 00:00:00 [facility] TDAP 2020-07-29 Completed [facility] 00:00:00 [facility] TDAP 2020-07-29 Completed [facility] 00:00:00 [facility] TDAP 2020-07-29 Completed [facility] 00:00:00 [facility] TDAP 2020-07-29 Completed [facility] 00:00:00 [facility] TDAP 2020-07-29 Completed [facility] 00:00:00 [facility] TDAP 2020-07-29 Completed [facility] 00:00:00 [facility] TDAP 2020-07-29 Completed [facility] 00:00:00 [facility] TDAP 2020-07-29 Completed [facility] 00:00:00 [facility] TDAP 2020-07-29 Completed [facility] 00:00:00 [facility] TDAP 2020-07-29 Completed [facility] 00:00:00 [facility] TDAP 2020-07-29 Completed [facility] 00:00:00 [facility] TDAP 2020-07-29 Completed [facility] 00:00:00 [facility] TDAP 2020-07-29 Completed [facility] 00:00:00 [facility] TDAP 2020-07-29 Completed [facility] 00:00:00 [facility] TDAP 2020-07-29 Completed [facility] 00:00:00 [facility] TDAP 2020-07-29 Completed [facility] 00:00:00 [facility] TDAP 2020-07-29 Completed [facility] 00:00:00 [facility] TDAP 2020-07-29 Completed [facility] 00:00:00 [facility] TDAP 2020-07-29 Completed [facility] 00:00:00 [facility] TDAP 2020-07-29 Completed [facility] 00:00:00 [facility] TDAP 2020-07-29 Completed [facility] 00:00:00 [facility] TDAP 2020-07-29 Completed [facility] 00:00:00 [facility] TDAP 2020-07-29 Completed [facility] 00:00:00 [facility] TDAP 2020-07-29 Completed [facility] 00:00:00 [facility] TDAP 2020-07-29 Completed [facility] 00:00:00 [facility] TDAP 2020-07-29 Completed [facility] 00:00:00 [facility] TDAP 2020-07-29 Completed [facility] 00:00:00 [facility] TDAP 2020-07-29 Completed [facility] 00:00:00 [facility] TDAP 2020-07-29 Completed [facility] 00:00:00 [facility] TDAP 2020-07-29 Completed [facility] 00:00:00 [facility] TDAP 2020-07-29 Completed [facility] 00:00:00 [facility] TDAP 2020-07-29 Completed [facility] 00:00:00 [facility] TDAP 2020-07-29 Completed [facility] 00:00:00 [facility] TDAP 2020-07-29 Completed [facility] 00:00:00 [facility] TDAP 2020-07-29 Completed [facility] 00:00:00 [facility] TDAP 2020-07-29 Completed [facility] 00:00:00 [facility] TDAP 2020-07-29 Completed [facility] 00:00:00 [facility] TDAP 2020-07-29 Completed [facility] 00:00:00 [facility] TDAP 2020-07-29 Completed [facility] 00:00:00 [facility] TDAP 2020-07-29 Completed [facility] 00:00:00 [facility] TDAP 2020-07-29 Completed [facility] 00:00:00 [facility] TDAP 2020-07-29 Completed [facility] 00:00:00 [facility] TDAP 2020-07-29 Completed [facility] 00:00:00 [facility] Influenza High Dose 2020-04-15 Completed [facility] 00:00:00 [facility] Influenza High Dose 2020-04-15 Completed [facility] 00:00:00 [facility] Influenza High Dose 2020-04-15 Completed [facility] 00:00:00 [facility] Influenza High Dose 2020-04-15 Completed [facility] 00:00:00 [facility] Influenza High Dose 2020-04-15 Completed [facility] 00:00:00 [facility] Influenza High Dose 2020-04-15 Completed [facility] 00:00:00 [facility] Influenza High Dose 2020-04-15 Completed [facility] 00:00:00 [facility] Influenza High Dose 2020-04-15 Completed [facility] 00:00:00 [facility] Influenza High Dose 2020-04-15 Completed [facility] 00[facility]00:00 [facility] Influenza High Dose 2020-04-15 Completed [facility] 00:00:00 [facility] Influenza High Dose 2020-04-15 Completed [facility] 00:00:00 [facility] Influenza High Dose 2020-04-15 Completed [facility] 00:00:00 [facility] Influenza High Dose 2020-04-15 Completed [facility] 00:00:00 [facility] Influenza High Dose 2020-04-15 Completed [facility] 00:00:00 [facility] Influenza High Dose 2020-04-15 Completed [facility] 00:00:00 [facility] Influenza High Dose 2020-04-15 Completed [facility] 00:00:00 [facility] Influenza High Dose 2020-04-15 Completed [facility] 00:00:00 [facility] Influenza High Dose 2020-04-15 Completed [facility] 00:00:00 [facility] Influenza High Dose 2020-04-15 Completed [facility] 00:00:00 [facility] Influenza High Dose 2020-04-15 Completed [facility] 00:00:00 [facility] Influenza High Dose 2020-04-15 Completed [facility] 00:00:00 [facility] Influenza High Dose 2020-04-15 Completed [facility] 00:00:00 [facility] Influenza High Dose 2020-04-15 Completed [facility] 00:00:00 [facility] Influenza High Dose 2020-04-15 Completed [facility] 00:00:00 [facility] Influenza High Dose 2020-04-15 Completed [facility] 00:00:00 [facility] Influenza High Dose 2020-04-15 Completed [facility] 00:00:00 [facility] Influenza High Dose 2020-04-15 Completed [facility] 00:00:00 [facility] Influenza High Dose 2020-04-15 Completed [facility] 00:00:00 [facility] Influenza High Dose 2020-04-15 Completed [facility] 00:00:00 [facility] Influenza High Dose 2020-04-15 Completed [facility] 00:00:00 [facility] Influenza High Dose 2020-04-15 Completed [facility] 00:00:00 [facility] Influenza High Dose 2020-04-15 Completed [facility] 00:00:00 [facility] Influenza High Dose 2020-04-15 Completed [facility] 00:00:00 [facility] Influenza High Dose 2020-04-15 Completed [facility] 00:00:00 [facility] Influenza High Dose 2020-04-15 Completed [facility] 00:00:00 [facility] Influenza High Dose 2020-04-15 Completed [facility] 00:00:00 [facility] Influenza High Dose 2020-04-15 Completed [facility] 00:00:00 [facility] Influenza High Dose 2020-04-15 Completed [facility] 00:00:00 [facility] Influenza High Dose 2020-04-15 Completed [facility] 00:00:00 [facility] Influenza High Dose 2020-04-15 Completed [facility] 00:00:00 [facility] Influenza High Dose 2020-04-15 Completed [facility] 00:00:00 [facility] Influenza High Dose 2020-04-15 Completed [facility] 00:00:00 [facility] Influenza High Dose 2020-04-15 Completed [facility] 00:00:00 [facility] Influenza High Dose 2020-04-15 Completed [facility] 00:00:00 [facility] Influenza High Dose 2020-04-15 Completed [facility] 00:00:00 [facility] Influenza High Dose 2020-04-15 Completed [facility] 00:00:00 [facility] Influenza High Dose 2020-04-15 Completed [facility] 00:00:00 [facility] Influenza High Dose 2020-04-15 Completed [facility] 00:00:00 [facility] Influenza High Dose 2020-04-15 Completed [facility] 00:00:00 [facility] Influenza High Dose 2020-04-15 Completed [facility] 00:00:00 [facility] Influenza High Dose 2020-04-15 Completed [facility] 00:00:00 [facility] Influenza High Dose 2020-04-15 Completed [facility] 00:00:00 [facility] Influenza High Dose 2020-04-15 Completed [facility] 00:00:00 [facility] Influenza High Dose 2020-04-15 Completed [facility] 00:00:00 [facility] Influenza High Dose 2020-04-15 Completed [facility] 00:00:00 [facility] Influenza High Dose 2020-04-15 Completed [facility] 00:00:00 [facility] Influenza High Dose 2020-04-15 Completed [facility] 00:00:00 [facility] Influenza High Dose 2020-04-15 Completed [facility] 00:00:00 [facility] Influenza High Dose 2020-04-15 Completed [facility] 00:00:00 [facility] Influenza High Dose 2020-04-15 Completed [facility] 00:00:00 [facility] Influenza High Dose 2020-04-15 Completed [facility] 00:00:00 [facility] Influenza High Dose 2020-04-15 Completed [facility] 00:00:00 [facility] Influenza High Dose 2020-04-15 Completed [facility] 00:00:00 [facility] Influenza High Dose 2020-04-15 Completed [facility] 00:00:00 [facility] Influenza High Dose 2020-04-15 Completed [facility] 00:00:00 [facility] Influenza High Dose 2020-04-15 Completed [facility] 00:00:00 [facility] Influenza High Dose 2020-04-15 Completed [facility] 00:00:00 [facility] Influenza High Dose 2020-04-15 Completed [facility] 00:00:00 [facility] Influenza High Dose 2020-04-15 Completed [facility] 00:00:00 [facility] Influenza High Dose 2020-04-15 Completed [facility] 00:00:00 [facility] Influenza High Dose 2020-04-15 Completed [facility] 00:00:00 [facility] Influenza High Dose 2020-04-15 Completed [facility] 00:00:00 [facility] Influenza High Dose 2020-04-15 Completed [facility] 00:00:00 [facility] Influenza High Dose 2020-04-15 Completed [facility] 00:00:00 [facility] Influenza High Dose 2020-04-15 Completed [facility] 00:00:00 [facility] Influenza High Dose 2020-04-15 Completed [facility] 00:00:00 [facility] Influenza High Dose 2020-04-15 Completed [facility] 00:00:00 [facility] Influenza High Dose 2020-04-15 Completed [facility] 00:00:00 [facility] Influenza High Dose 2020-04-15 Completed [facility] 00:00:00 [facility] Influenza High Dose 2020-04-15 Completed [facility] 00:00:00 [facility] Influenza High Dose 2020-04-15 Completed [facility] 00:00:00 [facility] Influenza High Dose 2020-04-15 Completed [facility] 00:00:00 [facility] Influenza High Dose 2020-04-15 Completed [facility] 00:00:00 [facility] Influenza High Dose 2020-04-15 Completed [facility] 00:00:00 [facility] Influenza High Dose 2020-04-15 Completed [facility] 00:00:00 [facility] Influenza High Dose 2020-04-15 Completed [facility] 00:00:00 [facility] Influenza High Dose 2020-04-15 Completed [facility] 00:00:00 [facility] Influenza High Dose 2020-04-15 Completed [facility] 00:00:00 [facility] Influenza High Dose 2020-04-15 Completed [facility] 00:00:00 [facility] Influenza High Dose 2020-04-15 Completed [facility] 00:00:00 [facility] Influenza High Dose 2020-04-15 Completed [facility] 00:00:00 [facility] Influenza High Dose 2020-04-15 Completed [facility] 00:00:00 [facility] Influenza High Dose 2020-04-15 Completed [facility] 00:00:00 [facility] Influenza High Dose 2020-04-15 Completed [facility] 00:00:00 [facility] Influenza High Dose 2020-04-15 Completed [facility] 00:00:00 [facility] Influenza High Dose 2020-04-15 Completed [facility] 00:00:00 [facility] Influenza High Dose 2020-04-15 Completed [facility] 00:00:00 [facility] Influenza High Dose 2020-04-15 Completed [facility] 00:00:00 [facility] Influenza High Dose 2020-04-15 Completed [facility] 00:00:00 [facility] Influenza High Dose 2020-04-15 Completed [facility] 00:00:00 [facility] Influenza High Dose 2020-04-15 Completed [facility] 00:00:00 [facility] Influenza High Dose 2020-04-15 Completed [facility] 00:00:00 [facility] Influenza High Dose 2020-04-15 Completed [facility] 00:00:00 [facility] Influenza High Dose 2020-04-15 Completed [facility] 00:00:00 [facility] Influenza High Dose 2020-04-15 Completed [facility] 00:00:00 [facility] Influenza High Dose 2020-04-15 Completed [facility] 00:00:00 [facility] Influenza High Dose 2020-04-15 Completed [facility] 00:00:00 [facility] Influenza High Dose 2020-04-15 Completed [facility] 00:00:00 [facility] Influenza High Dose 2020-04-15 Completed [facility] 00:00:00 [facility] Influenza High Dose 2020-04-15 Completed [facility] 00:00:00 [facility] Influenza High Dose 2020-04-15 Completed [facility] 00:00:00 [facility] Influenza High Dose 2020-04-15 Completed [facility] 00:00:00 [facility] Influenza High Dose 2020-04-15 Completed [facility] 00:00:00 [facility] Influenza High Dose 2020-04-15 Completed [facility] 00:00:00 [facility] Influenza High Dose 2020-04-15 Completed [facility] 00:00:00 [facility] Influenza High Dose 2020-04-15 Completed [facility] 00:00:00 [facility] Influenza High Dose 2020-04-15 Completed [facility] 00:00:00 [facility] Influenza High Dose 2020-04-15 Completed [facility] 00:00:00 [facility] Influenza High Dose 2020-04-15 Completed [facility] 00:00:00 [facility] Influenza High Dose 2020-04-15 Completed [facility] 00:00:00 [facility] Influenza High Dose 2020-04-15 Completed [facility] 00:00:00 [facility] Influenza High Dose 2020-04-15 Completed [facility] 00:00:00 [facility] Influenza High Dose 2020-04-15 Completed [facility] 00:00:00 [facility] Influenza High Dose 2020-04-15 Completed [facility] 00:00:00 [facility] Influenza High Dose 2020-04-15 Completed [facility] 00:00:00 [facility] Influenza High Dose 2020-04-15 Completed [facility] 00:00:00 [facility] Influenza High Dose 2020-04-15 Completed [facility] 00:00:00 [facility] Influenza Virus 2020-04-08 Completed [facility] 00:00:00 [facility] Preserv and ABX Branc h Free 18-64 YRS Influenza Virus 2020-04-08 Completed [facility]ine [facility] 00:00:00 [facility] Preserv and ABX Branc h Free 18-64 YRS Influenza Virus 2020-04-08 Completed [facility]ine [facility] 00:00:00 [facility], Preserv and ABX Branc h Free 18-64 YRS Influenza Virus 2020-04-08 Completed [facility]ine [facility] 00:00:00 [facility] Preserv and ABX Branc h Free 18-64 YRS Influenza Virus 2020-04-08 Completed [facility]ine [facility] 00:00:00 [facility] Preserv and ABX Branc h Free 18-64 YRS Influenza Virus 2020-04-08 Completed [facility]ine [facility] 00:00:00 [facility] Preserv and ABX Branc h Free 18-64 YRS Influenza Virus 2020-04-08 Completed [facility]ine [facility] 00:00:00 [facility] Preserv and ABX Branc h Free 18-64 YRS Influenza Virus 2020-04-08 Completed [facility]ine [facility] 00:00:00 [facility] Preserv and ABX Branc h Free 18-64 YRS Influenza Virus 2020-04-08 Completed [facility] Vaccine [facility] 00:00:00 [facility] Preserv and ABX Branc h Free 18-64 YRS Influenza Virus 2020-04-08 Completed [facility]ine [facility] 00:00:00 [facility] Preserv and ABX Branc h Free 18-64 YRS Influenza Virus 2020-04-08 Completed [facility]ine [facility] 00:00:00 [facility] Preserv and ABX Branc h Free 18-64 YRS Influenza Virus 2020-04-08 Completed [facility]ine [facility] 00:00:00 [facility] Preserv and ABX Branc h Free 18-64 YRS Influenza Virus 2020-04-08 Completed [facility] Vaccine [facility] 00:00:00 [facility] Preserv and ABX Branc h Free 18-64 YRS Influenza Virus 2020-04-08 Completed [facility]ine [facility] 00:00:00 [facility] Preserv and ABX Branc h Free 18-64 YRS Influenza Virus 2020-04-08 Completed [facility]ine [facility] 00:00:00 [facility], Preserv and ABX Branc h Free 18-64 YRS Influenza Virus 2020-04-08 Completed [facility]ine [facility] 00:00:00 [facility] Preserv and ABX Branc h Free 18-64 YRS Influenza Virus 2020-04-08 Completed [facility]ine [facility] 00:00:00 [facility] Preserv and ABX Branc h Free 18-64 YRS Influenza Virus 2020-04-08 Completed [facility]ine [facility] 00:00:00 [facility] Preserv and ABX Branc h Free 18-64 YRS Influenza Virus 2020-04-08 Completed [facility]ine [facility] 00:00:00 [facility] Preserv and ABX Branc h Free 18-64 YRS Influenza Virus 2020-04-08 Completed [facility]ine [facility] 00:00:00 [facility] Preserv and ABX Branc h Free 18-64 YRS Influenza Virus 2020-04-08 Completed [facility]ine [facility] 00:00:00 [facility] Preserv and ABX Branc h Free 18-64 YRS Influenza Virus 2020-04-08 Completed [facility]ine [facility] 00:00:00 [facility] Preserv and ABX Branc h Free 18-64 YRS Influenza Virus 2020-04-08 Completed [facility]ine [facility] 00:00:00 [facility] Preserv and ABX Branc h Free 18-64 YRS Influenza Virus 2020-04-08 Completed [facility]ine [facility] 00:00:00 [facility] Preserv and ABX Branc h Free 18-64 YRS Influenza Virus 2020-04-08 Completed [facility]ine [facility] 00:00:00 [facility] Preserv and ABX Branc h Free 18-64 YRS Influenza Virus 2020-04-08 Completed [facility]ine [facility] 00:00:00 [facility] Preserv and ABX Branc h Free 18-64 YRS Influenza Virus 2020-04-08 Completed [facility]ine [facility] 00:00:00 [facility] Preserv and ABX Branc h Free 18-64 YRS Influenza Virus 2020-04-08 Completed [facility]ine [facility] 00:00:00 [facility] Preserv and ABX Branc h Free 18-64 YRS Influenza Virus 2020-04-08 Completed [facility]ine [facility] 00:00:00 [facility] Preserv and ABX Branc h Free 18-64 YRS Influenza Virus 2020-04-08 Completed [facility]ine [facility] 00:00:00 [facility] Preserv and ABX Branc h Free 18-64 YRS Influenza Virus 2020-04-08 Completed [facility]ine [facility] 00:00:00 [facility] Preserv and ABX Branc h Free 18-64 YRS Influenza Virus 2020-04-08 Completed [facility]ine [facility] 00:00:00 [facility] Preserv and ABX Branc h Free 18-64 YRS Influenza Virus 2020-04-08 Completed [facility]ine [facility] 00:00:00 [facility] Preserv and ABX Branc h Free 18-64 YRS Influenza Virus 2020-04-08 Completed [facility]ine [facility] 00:00:00 [facility] Preserv and ABX Branc h Free 18-64 YRS Influenza Virus 2020-04-08 Completed [facility]ine [facility] 00:00:00 [facility] Preserv and ABX Branc h Free 18-64 YRS Influenza Virus 2020-04-08 Completed [facility]ine [facility] 00:00:00 [facility] Preserv and ABX Branc h Free 18-64 YRS Influenza Virus 2020-04-08 Completed [facility]ine [facility] 00:00:00 [facility] Preserv and ABX Branc h Free 18-64 YRS Influenza Virus 2020-04-08 Completed [facility]ine [facility] 00:00:00 [facility] Preserv and ABX Branc h Free 18-64 YRS Influenza Virus 2020-04-08 Completed [facility]ine [facility] 00:00:00 [facility] Preserv and ABX Branc h Free 18-64 YRS Influenza Virus 2020-04-08 Completed [facility]ine [facility] 00:00:00 [facility] Preserv and ABX Branc h Free 18-64 YRS Influenza Virus 2020-04-08 Completed [facility] 00:00:00 [facility] Preserv and ABX Branc h Free 18-64 YRS Influenza Virus 2020-04-08 Completed [facility] 00:00:00 [facility] Preserv and ABX Branc h Free 18-64 YRS Influenza Virus 2020-04-08 Completed [facility]ine [facility] 00:00:00 [facility] Preserv and ABX Branc h Free 18-64 YRS Influenza Virus 2020-04-08 Completed [facility] 00:00:00 [facility] Preserv and ABX Branc h Free 18-64 YRS Influenza Virus 2020-04-08 Completed [facility] 00:00:00 [facility] Preserv and ABX Branc h Free 18-64 YRS Influenza Virus 2020-04-08 Completed [facility]ine [facility] 00:00:00 [facility] Preserv and ABX Branc h Free 18-64 YRS Influenza Virus 2020-04-08 Completed [facility] 00:00:00 [facility] Preserv and ABX Branc h Free 18-64 YRS Influenza Virus 2020-04-08 Completed [facility] 00:00:00 [facility] Preserv and ABX Branc h Free 18-64 YRS Influenza Virus 2020-04-08 Completed [facility] 00:00:00 [facility] Preserv and ABX Branc h Free 18-64 YRS Influenza Virus 2020-04-08 Completed [facility] 00:00:00 [facility] Preserv and ABX Branc h Free 18-64 YRS Influenza Virus 2020-04-08 Completed [facility]ine [facility] 00:00:00 [facility] Preserv and ABX Branc h Free 18-64 YRS Influenza Virus 2020-04-08 Completed [facility]ine [facility] 00:00:00 [facility] Preserv and ABX Branc h Free 18-64 YRS Influenza Virus 2020-04-08 Completed [facility]ine [facility] 00:00:00 [facility] Preserv and ABX Branc h Free 18-64 YRS Influenza Virus 2020-04-08 Completed [facility] 00:00:00 [facility] Preserv and ABX Branc h Free 18-64 YRS Influenza Virus 2020-04-08 Completed [facility] 00:00:00 [facility] Preserv and ABX Branc h Free 18-64 YRS Influenza Virus 2020-04-08 Completed [facility] 00:00:00 [facility] Preserv and ABX Branc h Free 18-64 YRS Influenza Virus 2020-04-08 Completed [facility] 00:00:00 [facility] Preserv and ABX Branc h Free 18-64 YRS Influenza Virus 2020-04-08 Completed [facility] 00:00:00 [facility] Preserv and ABX Branc h Free 18-64 YRS Influenza Virus 2020-04-08 Completed [facility] 00:00:00 [facility] Preserv and ABX Branc h Free 18-64 YRS Influenza Virus 2020-04-08 Completed [facility] 00:00:00 [facility] Preserv and ABX Branc h Free 18-64 YRS Influenza Virus 2020-04-08 Completed [facility] 00:00:00 [facility] Preserv and ABX Branc h Free 18-64 YRS Influenza Virus 2020-04-08 Completed [facility] 00:00:00 [facility] Preserv and ABX Branc h Free 18-64 YRS Influenza Virus 2020-04-08 Completed [facility] 00:00:00 [facility] Preserv and ABX Branc h Free 18-64 YRS Influenza Virus 2020-04-08 Completed [facility]ine [facility] 00:00:00 [facility] Preserv and ABX Branc h Free 18-64 YRS Influenza Virus 2020-04-08 Completed [facility] 00:00:00 [facility] Preserv and ABX Branc h Free 18-64 YRS Influenza Virus 2020-04-08 Completed [facility] 00:00:00 [facility] Preserv and ABX Branc h Free 18-64 YRS Influenza Virus 2020-04-08 Completed [facility] 00:00:00 [facility] Preserv and ABX Branc h Free 18-64 YRS Influenza Virus 2020-04-08 Completed [facility] 00:00:00 [facility] Preserv and ABX Branc h Free 18-64 YRS Influenza Virus 2020-04-08 Completed [facility] 00:00:00 [facility] Preserv and ABX Branc h Free 18-64 YRS Influenza Virus 2020-04-08 Completed [facility]ine [facility] 00:00:00 [facility] Preserv and ABX Branc h Free 18-64 YRS Influenza Virus 2020-04-08 Completed [facility] 00:00:00 [facility] Preserv and ABX Branc h Free 18-64 YRS Influenza Virus 2020-04-08 Completed [facility] 00:00:00 [facility] Preserv and ABX Branc h Free 18-64 YRS Influenza Virus 2020-04-08 Completed [facility] 00:00:00 [facility] Preserv and ABX Branc h Free 18-64 YRS Influenza Virus 2020-04-08 Completed [facility] 00:00:00 [facility] Preserv and ABX Branc h Free 18-64 YRS Influenza Virus 2020-04-08 Completed [facility] 00:00:00 [facility] Preserv and ABX Branc h Free 18-64 YRS Influenza Virus 2020-04-08 Completed [facility]ine [facility] 00:00:00 [facility] Preserv and ABX Branc h Free 18-64 YRS Influenza Virus 2020-04-08 Completed [facility]ine [facility] 00:00:00 [facility] Preserv and ABX Branc h Free 18-64 YRS Influenza Virus 2020-04-08 Completed [facility] 00:00:00 [facility] Preserv and ABX Branc h Free 18-64 YRS Influenza Virus 2020-04-08 Completed [facility] 00:00:00 [facility] Preserv and ABX Branc h Free 18-64 YRS Influenza Virus 2020-04-08 Completed [facility] 00:00:00 [facility] Preserv and ABX Branc h Free 18-64 YRS Influenza Virus 2020-04-08 Completed [facility]ine [facility] 00:00:00 [facility] Preserv and ABX Branc h Free 18-64 YRS Influenza Virus 2020-04-08 Completed [facility]ine [facility] 00:00:00 [facility] Preserv and ABX Branc h Free 18-64 YRS Influenza Virus 2020-04-08 Completed [facility]ine [facility] 00:00:00 [facility] Preserv and ABX Branc h Free 18-64 YRS Influenza Virus 2020-04-08 Completed [facility]ine [facility] 00:00:00 [facility] Preserv and ABX Branc h Free 18-64 YRS Influenza Virus 2020-04-08 Completed [facility] 00:00:00 [facility] Preserv and ABX Branc h Free 18-64 YRS Influenza Virus 2020-04-08 Completed [facility]ine [facility] 00:00:00 [facility] Preserv and ABX Branc h Free 18-64 YRS Influenza Virus 2020-04-08 Completed [facility]ine [facility] 00:00:00 [facility] Preserv and ABX Branc h Free 18-64 YRS Influenza Virus 2020-04-08 Completed [facility]00 [facility], Preserv and ABX Branc h Free 18-64 YRS Influenza Virus 2020-04-08 Completed [facility]:00 [facility], Preserv and ABX Branc h Free 18-64 YRS Influenza Virus 2020-04-08 Completed [facility] 00:00:00 [facility], Preserv and ABX Branc h Free 18-64 YRS Influenza Virus 2020-04-08 Completed [facility] 00:00:00 [facility], Preserv and ABX Branc h Free 18-64 YRS Influenza Virus 2020-04-08 Completed [facility] 00:00:00 [facility], Preserv and ABX Branc h Free 18-64 YRS Influenza Virus 2020-04-08 Completed [facility] 00:00:00 [facility], Preserv and ABX Branc h Free 18-64 YRS Influenza Virus 2020-04-08 Completed [facility] 00:00:00 [facility], Preserv and ABX Branc h Free 18-64 YRS Influenza Virus 2020-04-08 Completed [facility] 00:00:00 [facility], Preserv and ABX Branc h Free 18-64 YRS Influenza Virus 2020-04-08 Completed [facility] 00:00:00 [facility], Preserv and ABX Branc h Free 18-64 YRS Influenza Virus 2020-04-08 Completed [facility] 00:00:00 [facility], Preserv and ABX Branc h Free 18-64 YRS Influenza Virus 2020-04-08 Completed [facility] 00:00:00 [facility], Preserv and ABX Branc h Free 18-64 YRS Influenza Virus 2020-04-08 Completed [facility] 00:00:00 [facility], Preserv and ABX Branc h Free 18-64 YRS Influenza Virus 2020-04-08 Completed [facility] 00:00:00 [facility], Preserv and ABX Branc h Free 18-64 YRS Influenza Virus 2020-04-08 Completed [facility] 00:00:00 [facility], Preserv and ABX Branc h Free 18-64 YRS Influenza Virus 2020-04-08 Completed [facility] 00:00:00 [facility], Preserv and ABX Branc h Free 18-64 YRS Influenza Virus 2020-04-08 Completed [facility] 00:00:00 [facility], Preserv and ABX Branc h Free 18-64 YRS Influenza Virus 2020-04-08 Completed [facility] 00:00:00 [facility], Preserv and ABX Branc h Free 18-64 YRS Influenza Virus 2020-04-08 Completed [facility] 00:00:00 [facility], Preserv and ABX Branc h Free 18-64 YRS Influenza Virus 2020-04-08 Completed [facility] 00:00:00 [facility], Preserv and ABX Branc h Free 18-64 YRS Influenza Virus 2020-04-08 Completed [facility] 00:00:00 [facility], Preserv and ABX Branc h Free 18-64 YRS Influenza Virus 2020-04-08 Completed [facility] 00:00:00 [facility], Preserv and ABX Branc h Free 18-64 YRS Influenza Virus 2020-04-08 Completed [facility] 00:00:00 [facility], Preserv and ABX Branc h Free 18-64 YRS Influenza Virus 2020-04-08 Completed [facility] 00:00:00 [facility], Preserv and ABX Branc h Free 18-64 YRS Influenza Virus 2020-04-08 Completed [facility] 00:00:00 [facility], Preserv and ABX Branc h Free 18-64 YRS Influenza Virus 2020-04-08 Completed [facility] 00:00:00 [facility], Preserv and ABX Branc h Free 18-64 YRS Influenza Virus 2020-04-08 Completed [facility] 00:00:00 [facility], Preserv and ABX Branc h Free 18-64 YRS Influenza Virus 2020-04-08 Completed [facility] 00:00:00 [facility], Preserv and ABX Branc h Free 18-64 YRS Influenza Virus 2020-04-08 Completed [facility] 00:00:00 [facility], Preserv and ABX Branc h Free 18-64 YRS Influenza Virus 2020-04-08 Completed [facility] 00:00:00 [facility], Preserv and ABX Branc h Free 18-64 YRS Influenza Virus 2020-04-08 Completed [facility] 00:00:00 [facility], Preserv and ABX Branc h Free 18-64 YRS Influenza Virus 2020-04-08 Completed [facility] 00:00:00 [facility], Preserv and ABX Branc h Free 18-64 YRS Influenza Virus 2020-04-08 Completed [facility] 00:00:00 [facility], Preserv and ABX Branc h Free 18-64 YRS Influenza Virus 2020-04-08 Completed [facility] 00:00:00 [facility], Preserv and ABX Branc h Free 18-64 YRS Influenza Virus 2020-04-08 Completed [facility] 00:00:00 [facility], Preserv and ABX Branc h Free 18-64 YRS Influenza Virus 2020-04-08 Completed [facility] 00:00:00 [facility], Preserv and ABX Branc h Free 18-64 YRS Influenza Virus 2020-04-08 Completed [facility] 00:00:00 [facility], Preserv and ABX Branc h Free 18-64 YRS Influenza Virus 2020-04-08 Completed [facility] 00:00:00 [facility], Preserv and ABX Branc h Free 18-64 YRS Influenza Virus 2020-04-08 Completed [facility] 00:00:00 [facility], Preserv and ABX Branc h Free 18-64 YRS Influenza Virus 2020-04-08 Completed [facility] 00:00:00 [facility], Preserv and ABX Branc h Free 18-64 YRS Influenza Virus 2020-04-08 Completed [facility] 00:00:00 [facility], Preserv and ABX Branc h Free 18-64 YRS Pneumococcal 2020-01-24 Completed [facility] Polys[facility], 00:00:00 [facility] PPSV23 (PNEUMOVAX) [facility] Pneumococcal 2020-01-24 Completed [facility] Polysaccharide, 00:00:00 [facility] PPSV23 (PNEUMOVAX) [facility] Pneumococcal 2020-01-24 Completed [facility] Polysaccharide, 00:00:00 [facility] PPSV23 (PNEUMOVAX) Branch Pneumococcal 2020-01-24 Completed [facility] Polysaccharide, 00:00:00 [facility] PPSV23 (PNEUMOVAX) Branch Pneumococcal 2020-01-24 Completed [facility] Polysaccharide, 00:00:00 [facility] PPSV23 (PNEUMOVAX) Branch Pneumococcal 2020-01-24 Completed [facility] Polysaccharide, 00:00:00 [facility] PPSV23 (PNEUMOVAX) Branch Pneumococcal 2020-01-24 Completed [facility] Polysaccharide, 00:00:00 [facility] PPSV23 (PNEUMOVAX) Branch Pneumococcal 2020-01-24 Completed [facility] Polysaccharide, 00:00:00 [facility] PPSV23 (PNEUMOVAX) Branch Pneumococcal 2020-01-24 Completed [facility] Polysaccharide, 00:00:00 [facility] PPSV23 (PNEUMOVAX) Branch Pneumococcal 2020-01-24 Completed [facility] Polysaccharide, 00:00:00 [facility] PPSV23 (PNEUMOVAX) Branch Pneumococcal 2020-01-24 Completed [facility] Polysaccharide, 00:00:00 [facility] PPSV23 (PNEUMOVAX) Branch Pneumococcal 2020-01-24 Completed [facility] Polysaccharide, 00:00:00 [facility] PPSV23 (PNEUMOVAX) Branch Pneumococcal 2020-01-24 Completed [facility] Polysaccharide, 00:00:00 [facility] PPSV23 (PNEUMOVAX) Branch Pneumococcal 2020-01-24 Completed [facility] Polysaccharide, 00:00:00 [facility] PPSV23 (PNEUMOVAX) Branch Pneumococcal 2020-01-24 Completed [facility] Polysaccharide, 00:00:00 [facility] PPSV23 (PNEUMOVAX) Branch Pneumococcal 2020-01-24 Completed [facility] Polysaccharide, 00:00:00 [facility] PPSV23 (PNEUMOVAX) Branch Pneumococcal 2020-01-24 Completed [facility] Polysaccharide, 00:00:00 [facility] PPSV23 (PNEUMOVAX) Branch Pneumococcal 2020-01-24 Completed [facility] Polysaccharide, 00:00:00 [facility] PPSV23 (PNEUMOVAX) Branch Pneumococcal 2020-01-24 Completed [facility] Polysaccharide, 00:00:00 [facility] PPSV23 (PNEUMOVAX) Branch Pneumococcal 2020-01-24 Completed [facility] Polysaccharide, 00:00:00 [facility] PPSV23 (PNEUMOVAX) Branch Pneumococcal 2020-01-24 Completed [facility] Polysaccharide, 00:00:00 [facility] PPSV23 (PNEUMOVAX) Branch Pneumococcal 2020-01-24 Completed [facility] Polysaccharide, 00:00:00 [facility] PPSV23 (PNEUMOVAX) Branch Pneumococcal 2020-01-24 Completed [facility] Polysaccharide, 00:00:00 [facility] PPSV23 (PNEUMOVAX) Branch Pneumococcal 2020-01-24 Completed [facility] Polysaccharide, 00:00:00 [facility] PPSV23 (PNEUMOVAX) Branch Pneumococcal 2020-01-24 Completed [facility] Polysaccharide, 00:00:00 [facility] PPSV23 (PNEUMOVAX) Branch Pneumococcal 2020-01-24 Completed [facility] Polysaccharide, 00:00:00 [facility] PPSV23 (PNEUMOVAX) Branch Pneumococcal 2020-01-24 Completed [facility] Polysaccharide, 00:00:00 [facility] PPSV23 (PNEUMOVAX) Branch Pneumococcal 2020-01-24 Completed [facility] Polysaccharide, 00:00:00 [facility] PPSV23 (PNEUMOVAX) Branch Pneumococcal 2020-01-24 Completed [facility] Polysaccharide, 00:00:00 [facility] PPSV23 (PNEUMOVAX) Branch Pneumococcal 2020-01-24 Completed [facility] Polysaccharide, 00:00:00 [facility] PPSV23 (PNEUMOVAX) Branch Pneumococcal 2020-01-24 Completed [facility] Polysaccharide, 00:00:00 [facility] PPSV23 (PNEUMOVAX) Branch Pneumococcal 2020-01-24 Completed [facility] Polysaccharide, 00:00:00 [facility] PPSV23 (PNEUMOVAX) Branch Pneumococcal 2020-01-24 Completed [facility] Polysaccharide, 00:00:00 [facility] PPSV23 (PNEUMOVAX) Branch Pneumococcal 2020-01-24 Completed [facility] Polysaccharide, 00:00:00 [facility] PPSV23 (PNEUMOVAX) Branch Pneumococcal 2020-01-24 Completed [facility] Polysaccharide, 00:00:00 [facility] PPSV23 (PNEUMOVAX) Branch Pneumococcal 2020-01-24 Completed [facility] Polysaccharide, 00:00:00 [facility] PPSV23 (PNEUMOVAX) Branch Pneumococcal 2020-01-24 Completed [facility] Polysaccharide, 00:00:00 [facility] PPSV23 (PNEUMOVAX) Branch Pneumococcal 2020-01-24 Completed [facility] Polysaccharide, 00:00:00 [facility] PPSV23 (PNEUMOVAX) Branch Pneumococcal 2020-01-24 Completed [facility] Polysaccharide, 00:00:00 [facility] PPSV23 (PNEUMOVAX) Branch Pneumococcal 2020-01-24 Completed [facility] Polysaccharide, 00:00:00 [facility] PPSV23 (PNEUMOVAX) Branch Pneumococcal 2020-01-24 Completed [facility] Polysaccharide, 00:00:00 [facility] PPSV23 (PNEUMOVAX) Branch Pneumococcal 2020-01-24 Completed [facility] Polysaccharide, 00:00:00 [facility] PPSV23 (PNEUMOVAX) Branch Pneumococcal 2020-01-24 Completed [facility] Polysaccharide, 00:00:00 [facility] PPSV23 (PNEUMOVAX) Branch Pneumococcal 2020-01-24 Completed [facility] Polysaccharide, 00:00:00 [facility] PPSV23 (PNEUMOVAX) Branch Pneumococcal 2020-01-24 Completed [facility] Polysaccharide, 00:00:00 [facility] PPSV23 (PNEUMOVAX) Branch Pneumococcal 2020-01-24 Completed [facility] Polysaccharide, 00:00:00 [facility] PPSV23 (PNEUMOVAX) Branch Pneumococcal 2020-01-24 Completed [facility] Polysaccharide, 00:00:00 [facility] PPSV23 (PNEUMOVAX) Branch Pneumococcal 2020-01-24 Completed [facility] Polysaccharide, 00:00:00 [facility] PPSV23 (PNEUMOVAX) Branch Pneumococcal 2020-01-24 Completed [facility] Polysaccharide, 00:00:00 [facility] PPSV23 (PNEUMOVAX) Branch Pneumococcal 2020-01-24 Completed [facility] Polysaccharide, 00:00:00 [facility] PPSV23 (PNEUMOVAX) Branch Pneumococcal 2020-01-24 Completed [facility] Polysaccharide, 00:00:00 [facility] PPSV23 (PNEUMOVAX) Branch Pneumococcal 2020-01-24 Completed [facility] Polysaccharide, 00:00:00 [facility] PPSV23 (PNEUMOVAX) Branch Pneumococcal 2020-01-24 Completed [facility] Polysaccharide, 00:00:00 [facility] PPSV23 (PNEUMOVAX) Branch Pneumococcal 2020-01-24 Completed [facility] Polysaccharide, 00:00:00 [facility] PPSV23 (PNEUMOVAX) Branch Pneumococcal 2020-01-24 Completed [facility] Polysaccharide, 00:00:00 [facility] PPSV23 (PNEUMOVAX) Branch Pneumococcal 2020-01-24 Completed [facility] Polysaccharide, 00:00:00 [facility] PPSV23 (PNEUMOVAX) Branch Pneumococcal 2020-01-24 Completed [facility] Polysaccharide, 00:00:00 [facility] PPSV23 (PNEUMOVAX) Branch Pneumococcal 2020-01-24 Completed [facility] Polysaccharide, 00:00:00 [facility] PPSV23 (PNEUMOVAX) Branch Pneumococcal 2020-01-24 Completed [facility] Polysaccharide, 00:00:00 [facility] PPSV23 (PNEUMOVAX) Branch Pneumococcal 2020-01-24 Completed [facility] Polysaccharide, 00:00:00 [facility] PPSV23 (PNEUMOVAX) Branch Pneumococcal 2020-01-24 Completed [facility] Polysaccharide, 00:00:00 [facility] PPSV23 (PNEUMOVAX) Branch Pneumococcal 2020-01-24 Completed [facility] Polysaccharide, 00:00:00 [facility] PPSV23 (PNEUMOVAX) Branch Pneumococcal 2020-01-24 Completed [facility] Polysaccharide, 00:00:00 [facility] PPSV23 (PNEUMOVAX) Branch Pneumococcal 2020-01-24 Completed [facility] Polysaccharide, 00:00:00 [facility] PPSV23 (PNEUMOVAX) Branch Pneumococcal 2020-01-24 Completed [facility] Polysaccharide, 00:00:00 [facility] PPSV23 (PNEUMOVAX) Branch Pneumococcal 2020-01-24 Completed [facility] Polysaccharide, 00:00:00 [facility] PPSV23 (PNEUMOVAX) Branch Pneumococcal 2020-01-24 Completed [facility] Polysaccharide, 00:00:00 [facility] PPSV23 (PNEUMOVAX) Branch Pneumococcal 2020-01-24 Completed [facility] Polysaccharide, 00:00:00 [facility] PPSV23 (PNEUMOVAX) Branch Pneumococcal 2020-01-24 Completed [facility] Polysaccharide, 00:00:00 [facility] PPSV23 (PNEUMOVAX) Branch Pneumococcal 2020-01-24 Completed [facility] Polysaccharide, 00:00:00 [facility] PPSV23 (PNEUMOVAX) Branch Pneumococcal 2020-01-24 Completed [facility] Polysaccharide, 00:00:00 [facility] PPSV23 (PNEUMOVAX) Branch Pneumococcal 2020-01-24 Completed [facility] Polysaccharide, 00:00:00 [facility] PPSV23 (PNEUMOVAX) Branch Pneumococcal 2020-01-24 Completed [facility] Polysaccharide, 00:00:00 [facility] PPSV23 (PNEUMOVAX) Branch Pneumococcal 2020-01-24 Completed [facility] Polysaccharide, 00:00:00 [facility] PPSV23 (PNEUMOVAX) Branch Pneumococcal 2020-01-24 Completed [facility] Polysaccharide, 00:00:00 [facility] PPSV23 (PNEUMOVAX) Branch Pneumococcal 2020-01-24 Completed [facility] Polysaccharide, 00:00:00 [facility] PPSV23 (PNEUMOVAX) Branch Pneumococcal 2020-01-24 Completed [facility] Polysaccharide, 00:00:00 [facility] PPSV23 (PNEUMOVAX) Branch Pneumococcal 2020-01-24 Completed [facility] Polysaccharide, 00:00:00 [facility] PPSV23 (PNEUMOVAX) Branch Pneumococcal 2020-01-24 Completed [facility] Polysaccharide, 00:00:00 [facility] PPSV23 (PNEUMOVAX) Branch Pneumococcal 2020-01-24 Completed [facility] Polysaccharide, 00:00:00 [facility] PPSV23 (PNEUMOVAX) Branch Pneumococcal 2020-01-24 Completed [facility] Polysaccharide, 00:00:00 [facility] PPSV23 (PNEUMOVAX) Branch Pneumococcal 2020-01-24 Completed [facility] Polysaccharide, 00:00:00 [facility] PPSV23 (PNEUMOVAX) Branch Pneumococcal 2020-01-24 Completed [facility] Polysaccharide, 00:00:00 [facility] PPSV23 (PNEUMOVAX) Branch Pneumococcal 2020-01-24 Completed [facility] Polysaccharide, 00:00:00 [facility] PPSV23 (PNEUMOVAX) Branch Pneumococcal 2020-01-24 Completed [facility] Polysaccharide, 00:00:00 [facility] PPSV23 (PNEUMOVAX) Branch Pneumococcal 2020-01-24 Completed [facility] Polysaccharide, 00:00:00 [facility] PPSV23 (PNEUMOVAX) Branch Pneumococcal 2020-01-24 Completed [facility] Polysaccharide, 00:00:00 [facility] PPSV23 (PNEUMOVAX) Branch Pneumococcal 2020-01-24 Completed [facility] Polysaccharide, 00:00:00 [facility] PPSV23 (PNEUMOVAX) Branch Pneumococcal 2020-01-24 Completed [facility] Polysaccharide, 00:00:00 [facility] PPSV23 (PNEUMOVAX) Branch Pneumococcal 2020-01-24 Completed [facility] Polysaccharide, 00:00:00 [facility] PPSV23 (PNEUMOVAX) Branch Pneumococcal 2020-01-24 Completed [facility] Polysaccharide, 00:00:00 [facility] PPSV23 (PNEUMOVAX) Branch Pneumococcal 2020-01-24 Completed [facility] Polysaccharide, 00:00:00 [facility] PPSV23 (PNEUMOVAX) Branch Pneumococcal 2020-01-24 Completed [facility] Polysaccharide, 00:00:00 [facility] PPSV23 (PNEUMOVAX) Branch Pneumococcal 2020-01-24 Completed [facility] Polysaccharide, 00:00:00 [facility] PPSV23 (PNEUMOVAX) Branch Pneumococcal 2020-01-24 Completed [facility] Polysaccharide, 00:00:00 [facility] PPSV23 (PNEUMOVAX) Branch Pneumococcal 2020-01-24 Completed [facility] Polysaccharide, 00:00:00 [facility] PPSV23 (PNEUMOVAX) Branch Pneumococcal 2020-01-24 Completed [facility] Polysaccharide, 00:00:00 [facility] PPSV23 (PNEUMOVAX) Branch Pneumococcal 2020-01-24 Completed [facility] Polysaccharide, 00:00:00 [facility] PPSV23 (PNEUMOVAX) Branch Pneumococcal 2020-01-24 Completed [facility] Polysaccharide, 00:00:00 [facility] PPSV23 (PNEUMOVAX) Branch Pneumococcal 2020-01-24 Completed [facility] Polysaccharide, 00:00:00 [facility] PPSV23 (PNEUMOVAX) Branch Pneumococcal 2020-01-24 Completed [facility] Polysaccharide, 00:00:00 [facility] PPSV23 (PNEUMOVAX) Branch Pneumococcal 2020-01-24 Completed [facility] Polysaccharide, 00:00:00 [facility] PPSV23 (PNEUMOVAX) Branch Pneumococcal 2020-01-24 Completed [facility] Polysaccharide, 00:00:00 [facility] PPSV23 (PNEUMOVAX) Branch Pneumococcal 2020-01-24 Completed [facility] Polysaccharide, 00:00:00 [facility] PPSV23 (PNEUMOVAX) Branch Pneumococcal 2020-01-24 Completed [facility] Polysaccharide, 00:00:00 [facility] PPSV23 (PNEUMOVAX) Branch Pneumococcal 2020-01-24 Completed [facility] Polysaccharide, 00:00:00 [facility] PPSV23 (PNEUMOVAX) Branch Pneumococcal 2020-01-24 Completed [facility] Polysaccharide, 00:00:00 [facility] PPSV23 (PNEUMOVAX) Branch Pneumococcal 2020-01-24 Completed [facility] Polysaccharide, 00:00:00 [facility] PPSV23 (PNEUMOVAX) Branch Pneumococcal 2020-01-24 Completed [facility] Polysaccharide, 00:00:00 [facility] PPSV23 (PNEUMOVAX) Branch Pneumococcal 2020-01-24 Completed [facility] Polysaccharide, 00:00:00 [facility] PPSV23 (PNEUMOVAX) Branch Pneumococcal 2020-01-24 Completed [facility] Polysaccharide, 00:00:00 [facility] PPSV23 (PNEUMOVAX) Branch Pneumococcal 2020-01-24 Completed [facility] Polysaccharide, 00:00:00 [facility] PPSV23 (PNEUMOVAX) Branch Pneumococcal 2020-01-24 Completed [facility] Polysaccharide, 00:00:00 [facility] PPSV23 (PNEUMOVAX) Branch Pneumococcal 2020-01-24 Completed [facility] Polysaccharide, 00:00:00 [facility] PPSV23 (PNEUMOVAX) Branch Pneumococcal 2020-01-24 Completed [facility] Polysaccharide, 00:00:00 [facility] PPSV23 (PNEUMOVAX) Branch Pneumococcal 2020-01-24 Completed [facility] Polysaccharide, 00:00:00 [facility] PPSV23 (PNEUMOVAX) Branch Pneumococcal 2020-01-24 Completed [facility] Polysaccharide, 00:00:00 [facility] PPSV23 (PNEUMOVAX) Branch Pneumococcal 2020-01-24 Completed [facility] Polysaccharide, 00:00:00 [facility] PPSV23 (PNEUMOVAX) Branch Pneumococcal 2020-01-24 Completed [facility] Polysaccharide, 00:00:00 [facility] PPSV23 (PNEUMOVAX) Branch Pneumococcal 2020-01-24 Completed [facility] Polysaccharide, 00:00:00 [facility] PPSV23 (PNEUMOVAX) Branch Pneumococcal 2020-01-24 Completed [facility] Polysaccharide, 00:00:00 [facility] PPSV23 (PNEUMOVAX) Branch Pneumococcal 2020-01-24 Completed [facility] Polysaccharide, 00:00:00 [facility] PPSV23 (PNEUMOVAX) Branch Pneumococcal 2020-01-24 Completed [facility] Polysaccharide, 00:00:00 [facility] PPSV23 (PNEUMOVAX) Branch Pneumococcal 2020-01-24 Completed [facility] Polysaccharide, 00:00:00 [facility] PPSV23 (PNEUMOVAX) Branch Pneumococcal 2020-01-24 Completed [facility] Polysaccharide, 00:00:00 [facility] PPSV23 (PNEUMOVAX) Branch Pneumococcal 2020-01-24 Completed [facility] Polysaccharide, 00:00:00 [facility] PPSV23 (PNEUMOVAX) Branch Pneumococcal 2020-01-24 Completed [facility] Polysaccharide, 00:00:00 [facility] PPSV23 (PNEUMOVAX) Branch Influenza High Dose 2019-03-20 Completed [facility] 00:00:00 [facility] Influenza High Dose 2019-03-20 Completed [facility] 00:00:00 [facility] Influenza High Dose 2019-03-20 Completed [facility] 00:00:00 [facility] Influenza High Dose 2019-03-20 Completed [facility] 00:00:00 [facility] Influenza High Dose 2019-03-20 Completed [facility] 00:00:00 [facility] Influenza High Dose 2019-03-20 Completed [facility] 00:00:00 [facility] Influenza High Dose 2019-03-20 Completed [facility] 00:00:00 [facility] Influenza High Dose 2019-03-20 Completed [facility] 00:00:00 [facility] Influenza High Dose 2019-03-20 Completed [facility] 00:00:00 [facility] Influenza High Dose 2019-03-20 Completed [facility] 00:00:00 [facility] Influenza High Dose 2019-03-20 Completed [facility] 00:00:00 [facility] Influenza High Dose 2019-03-20 Completed [facility] 00:00:00 [facility] Influenza High Dose 2019-03-20 Completed [facility] 00:00:00 [facility] Influenza High Dose 2019-03-20 Completed [facility] 00:00:00 [facility] Influenza High Dose 2019-03-20 Completed [facility] 00:00:00 [facility] Influenza High Dose 2019-03-20 Completed [facility] 00:00:00 [facility] Influenza High Dose 2019-03-20 Completed [facility] 00:00:00 [facility] Influenza High Dose 2019-03-20 Completed [facility] 00:00:00 [facility] Influenza High Dose 2019-03-20 Completed [facility] 00:00:00 [facility] Influenza High Dose 2019-03-20 Completed [facility] 00:00:00 [facility] Influenza High Dose 2019-03-20 Completed [facility] 00:00:00 [facility] Influenza High Dose 2019-03-20 Completed [facility] 00:00:00 [facility] Influenza High Dose 2019-03-20 Completed [facility] 00:00:00 [facility] Influenza High Dose 2019-03-20 Completed [facility] 00:00:00 [facility] Influenza High Dose 2019-03-20 Completed [facility] 00:00:00 [facility] Influenza High Dose 2019-03-20 Completed [facility] 00:00:00 [facility] Influenza High Dose 2019-03-20 Completed [facility] 00:00:00 [facility] Influenza High Dose 2019-03-20 Completed [facility] 00:00:00 [facility] Influenza High Dose 2019-03-20 Completed [facility] 00:00:00 [facility] Influenza High Dose 2019-03-20 Completed [facility] 00:00:00 [facility] Influenza High Dose 2019-03-20 Completed [facility] 00:00:00 [facility] Influenza High Dose 2019-03-20 Completed [facility] 00:00:00 [facility] Influenza High Dose 2019-03-20 Completed [facility] 00:00:00 [facility] Influenza High Dose 2019-03-20 Completed [facility] 00:00:00 [facility] Influenza High Dose 2019-03-20 Completed [facility] 00:00:00 [facility] Influenza High Dose 2019-03-20 Completed [facility] 00:00:00 [facility] Influenza High Dose 2019-03-20 Completed [facility] 00:00:00 [facility] Influenza High Dose 2019-03-20 Completed [facility] 00:00:00 [facility] Influenza High Dose 2019-03-20 Completed [facility] 00:00:00 [facility] Influenza High Dose 2019-03-20 Completed [facility] 00:00:00 [facility] Influenza High Dose 2019-03-20 Completed [facility] 00:00:00 [facility] Influenza High Dose 2019-03-20 Completed [facility] 00:00:00 [facility] Influenza High Dose 2019-03-20 Completed [facility] 00:00:00 [facility] Influenza High Dose 2019-03-20 Completed [facility] 00:00:00 [facility] Influenza High Dose 2019-03-20 Completed [facility] 00:00:00 [facility] Influenza High Dose 2019-03-20 Completed [facility] 00:00:00 [facility] Influenza High Dose 2019-03-20 Completed [facility] 00:00:00 [facility] Influenza High Dose 2019-03-20 Completed [facility] 00:00:00 [facility] Influenza High Dose 2019-03-20 Completed [facility] 00:00:00 [facility] Influenza High Dose 2019-03-20 Completed [facility] 00:00:00 [facility] Influenza High Dose 2019-03-20 Completed [facility] 00:00:00 [facility] Influenza High Dose 2019-03-20 Completed [facility] 00:00:00 [facility] Influenza High Dose 2019-03-20 Completed [facility] 00:00:00 [facility] Influenza High Dose 2019-03-20 Completed [facility] 00:00:00 [facility] Influenza High Dose 2019-03-20 Completed [facility] 00:00:00 [facility] Influenza High Dose 2019-03-20 Completed [facility] 00:00:00 [facility] Influenza High Dose 2019-03-20 Completed [facility] 00:00:00 [facility] Influenza High Dose 2019-03-20 Completed [facility] 00:00:00 [facility] Influenza High Dose 2019-03-20 Completed [facility] 00:00:00 [facility] Influenza High Dose 2019-03-20 Completed [facility] 00:00:00 [facility] Influenza High Dose 2019-03-20 Completed [facility] 00:00:00 [facility] Influenza High Dose 2019-03-20 Completed [facility] 00:00:00 [facility] Influenza High Dose 2019-03-20 Completed [facility] 00:00:00 [facility] Influenza High Dose 2019-03-20 Completed [facility] 00:00:00 [facility] Influenza High Dose 2019-03-20 Completed [facility] 00:00:00 [facility] Influenza High Dose 2019-03-20 Completed [facility] 00:00:00 [facility] Influenza High Dose 2019-03-20 Completed [facility] 00:00:00 [facility] Influenza High Dose 2019-03-20 Completed [facility] 00:00:00 [facility] Influenza High Dose 2019-03-20 Completed [facility] 00:00:00 [facility] Influenza High Dose 2019-03-20 Completed [facility] 00:00:00 [facility] Influenza High Dose 2019-03-20 Completed [facility] 00:00:00 [facility] Influenza High Dose 2019-03-20 Completed [facility] 00:00:00 [facility] Influenza High Dose 2019-03-20 Completed [facility] 00:00:00 [facility] Influenza High Dose 2019-03-20 Completed [facility] 00:00:00 [facility] Influenza High Dose 2019-03-20 Completed [facility] 00:00:00 [facility] Influenza High Dose 2019-03-20 Completed [facility] 00:00:00 [facility] Influenza High Dose 2019-03-20 Completed [facility] 00:00:00 [facility] Influenza High Dose 2019-03-20 Completed [facility] 00:00:00 [facility] Influenza High Dose 2019-03-20 Completed [facility] 00:00:00 [facility] Influenza High Dose 2019-03-20 Completed [facility] 00:00:00 [facility] Influenza High Dose 2019-03-20 Completed [facility] 00:00:00 [facility] Influenza High Dose 2019-03-20 Completed [facility] 00:00:00 [facility] Influenza High Dose 2019-03-20 Completed [facility] 00:00:00 [facility] Influenza High Dose 2019-03-20 Completed [facility] 00:00:00 [facility] Influenza High Dose 2019-03-20 Completed [facility] 00:00:00 [facility] Influenza High Dose 2019-03-20 Completed [facility] 00:00:00 [facility] Influenza High Dose 2019-03-20 Completed [facility] 00:00:00 [facility] Influenza High Dose 2019-03-20 Completed [facility] 00:00:00 [facility] Influenza High Dose 2019-03-20 Completed [facility] 00:00:00 [facility] Influenza High Dose 2019-03-20 Completed [facility] 00:00:00 [facility] Influenza High Dose 2019-03-20 Completed [facility] 00:00:00 [facility] Influenza High Dose 2019-03-20 Completed [facility] 00:00:00 [facility] Influenza High Dose 2019-03-20 Completed [facility] 00:00:00 [facility] Influenza High Dose 2019-03-20 Completed [facility] 00:00:00 [facility] Influenza High Dose 2019-03-20 Completed [facility] 00:00:00 [facility] Influenza High Dose 2019-03-20 Completed [facility] 00:00:00 [facility] Influenza High Dose 2019-03-20 Completed [facility] 00:00:00 [facility] Influenza High Dose 2019-03-20 Completed [facility] 00:00:00 [facility] Influenza High Dose 2019-03-20 Completed [facility] 00:00:00 [facility] Influenza High Dose 2019-03-20 Completed [facility] 00:00:00 [facility] Influenza High Dose 2019-03-20 Completed [facility] 00:00:00 [facility] Influenza High Dose 2019-03-20 Completed [facility] 00:00:00 [facility] Influenza High Dose 2019-03-20 Completed [facility] 00:00:00 [facility] Influenza High Dose 2019-03-20 Completed [facility] 00:00:00 [facility] Influenza High Dose 2019-03-20 Completed [facility] 00:00:00 [facility] Influenza High Dose 2019-03-20 Completed [facility] 00:00:00 [facility] Influenza High Dose 2019-03-20 Completed [facility] 00:00:00 [facility] Influenza High Dose 2019-03-20 Completed [facility] 00:00:00 [facility] Influenza High Dose 2019-03-20 Completed [facility] 00:00:00 [facility] Influenza High Dose 2019-03-20 Completed [facility] 00:00:00 [facility] Influenza High Dose 2019-03-20 Completed [facility] 00:00:00 [facility] Influenza High Dose 2019-03-20 Completed [facility] 00:00:00 [facility] Influenza High Dose 2019-03-20 Completed [facility] 00:00:00 [facility] Influenza High Dose 2019-03-20 Completed [facility] 00:00:00 [facility] Influenza High Dose 2019-03-20 Completed [facility] 00:00:00 [facility] Influenza High Dose 2019-03-20 Completed [facility] 00:00:00 [facility] Influenza High Dose 2019-03-20 Completed [facility] 00:00:00 [facility] Influenza High Dose 2019-03-20 Completed [facility] 00:00:00 [facility] Influenza High Dose 2019-03-20 Completed [facility] 00:00:00 [facility] Influenza High Dose 2019-03-20 Completed [facility] 00:00:00 [facility] Influenza High Dose 2019-03-20 Completed [facility] 00:00:00 [facility] Influenza High Dose 2019-03-20 Completed [facility] 00:00:00 [facility] Influenza High Dose 2019-03-20 Completed [facility] 00:00:00 [facility] Influenza High Dose 2019-03-20 Completed [facility] 00:00:00 [facility] Influenza High Dose 2019-03-20 Completed [facility] 00:00:00 [facility] Influenza High Dose 2019-03-20 Completed [facility] 00:00:00 [facility] Influenza High Dose 2019-03-20 Completed [facility] 00:00:00 [facility] Pneumococcal 13 2017-11-29 Completed [facility] Conjugate, PCV13 00:00:00 [place] [facility] (Prevnar 13) [facility] Pneumococcal 13 2017-11-29 Completed [facility] Conjugate, PCV13 00:00:00 [facility] (Prevnar 13) [facility] Pneumococcal 13 2017-11-29 Completed [facility] Conjugate, PCV13 00:00:00 [facility] (Prevnar 13) [facility] Pneumococcal 13 2017-11-29 Completed [facility] Conjugate, PCV13 00:00:00 [facility] (Prevnar 13) [facility] Pneumococcal 13 2017-11-29 Completed [facility] Conjugate, PCV13 00:00:00 [facility] (Prevnar 13) [facility] Pneumococcal 13 2017-11-29 Completed [facility] Conjugate, PCV13 00:00:00 [facility] (Prevnar 13) [facility] Pneumococcal 13 2017-11-29 Completed [facility] Conjugate, PCV13 00:00:00 [facility] (Prevnar 13) [facility] Pneumococcal 13 2017-11-29 Completed [facility] Conjugate, PCV13 00:00:00 [facility] (Prevnar 13) [facility] Pneumococcal 13 2017-11-29 Completed [facility] Conjugate, PCV13 00:00:00 [facility] (Prevnar 13) [facility] Pneumococcal 13 2017-11-29 Completed [facility] Conjugate, PCV13 00:00:00 [facility] (Prevnar 13) [facility] Pneumococcal 13 2017-11-29 Completed [facility] Conjugate, PCV13 00:00:00 [facility] (Prevnar 13) [facility] Pneumococcal 13 2017-11-29 Completed [facility] Conjugate, PCV13 00:00:00 [facility] (Prevnar 13) [facility] Pneumococcal 13 2017-11-29 Completed [facility] Conjugate, PCV13 00:00:00 [facility] (Prevnar 13) [facility] Pneumococcal 13 2017-11-29 Completed [facility] Conjugate, PCV13 00:00:00 [facility] (Prevnar 13) [facility] Pneumococcal 13 2017-11-29 Completed [facility] Conjugate, PCV13 00:00:00 [facility] (Prevnar 13) [facility] Pneumococcal 13 2017-11-29 Completed [facility] Conjugate, PCV13 00:00:00 [facility] (Prevnar 13) [facility] Pneumococcal 13 2017-11-29 Completed [facility] Conjugate, PCV13 00:00:00 [facility] (Prevnar 13) [facility] Pneumococcal 13 2017-11-29 Completed [facility] Conjugate, PCV13 00:00:00 [facility] (Prevnar 13) [facility] Pneumococcal 13 2017-11-29 Completed [facility] Conjugate, PCV13 00:00:00 [facility] (Prevnar 13) [facility] Pneumococcal 13 2017-11-29 Completed [facility] Conjugate, PCV13 00:00:00 [facility] (Prevnar 13) [facility] Pneumococcal 13 2017-11-29 Completed [facility] Conjugate, PCV13 00:00:00 [facility] (Prevnar 13) [facility] Pneumococcal 13 2017-11-29 Completed [facility] Conjugate, PCV13 00:00:00 [facility] (Prevnar 13) [facility] Pneumococcal 13 2017-11-29 Completed [facility] Conjugate, PCV13 00:00:00 [facility] (Prevnar 13) [facility] Pneumococcal 13 2017-11-29 Completed [facility] Conjugate, PCV13 00:00:00 [facility] (Prevnar 13) [facility] Pneumococcal 13 2017-11-29 Completed [facility] Conjugate, PCV13 00:00:00 [facility] (Prevnar 13) [facility] Pneumococcal 13 2017-11-29 Completed [facility] Conjugate, PCV13 00:00:00 [facility] (Prevnar 13) [facility] Pneumococcal 13 2017-11-29 Completed [facility] Conjugate, PCV13 00:00:00 [facility] (Prevnar 13) Branch Pneumococcal 13 2017-11-29 Completed [facility] Conjugate, PCV13 00:00:00 [facility] (Prevnar 13) [facility] Pneumococcal 13 2017-11-29 Completed [facility] Conjugate, PCV13 00:00:00 [facility] (Prevnar 13) [facility] Pneumococcal 13 2017-11-29 Completed [facility] Conjugate, PCV13 00:00:00 [facility] (Prevnar 13) Branch Pneumococcal 13 2017-11-29 Completed [facility] Conjugate, PCV13 00:00:00 [facility] (Prevnar 13) [facility] Pneumococcal 13 2017-11-29 Completed [facility] Conjugate, PCV13 00:00:00 [facility] (Prevnar 13) [facility] Pneumococcal 13 2017-11-29 Completed [facility] Conjugate, PCV13 00:00:00 [facility] (Prevnar 13) [facility] Pneumococcal 13 2017-11-29 Completed [facility] Conjugate, PCV13 00:00:00 [facility] (Prevnar 13) [facility] Pneumococcal 13 2017-11-29 Completed [facility] Conjugate, PCV13 00:00:00 [facility] (Prevnar 13) [facility] Pneumococcal 13 2017-11-29 Completed [facility] Conjugate, PCV13 00:00:00 [facility] (Prevnar 13) [facility] Pneumococcal 13 2017-11-29 Completed [facility] Conjugate, PCV13 00:00:00 [facility] (Prevnar 13) [facility] Pneumococcal 13 2017-11-29 Completed [facility] Conjugate, PCV13 00:00:00 [facility] (Prevnar 13) [facility] Pneumococcal 13 2017-11-29 Completed [facility] Conjugate, PCV13 00:00:00 [facility] (Prevnar 13) [facility] Pneumococcal 13 2017-11-29 Completed [facility] Conjugate, PCV13 00:00:00 [facility] (Prevnar 13) [facility] Pneumococcal 13 2017-11-29 Completed [facility] Conjugate, PCV13 00:00:00 [facility] (Prevnar 13) Branch Pneumococcal 13 2017-11-29 Completed [facility] Conjugate, PCV13 00:00:00 [facility] (Prevnar 13) [facility] Pneumococcal 13 2017-11-29 Completed [facility] Conjugate, PCV13 00:00:00 [facility] (Prevnar 13) Branch Pneumococcal 13 2017-11-29 Completed [facility] Conjugate, PCV13 00:00:00 [facility] (Prevnar 13) [facility] Pneumococcal 13 2017-11-29 Completed [facility] Conjugate, PCV13 00:00:00 [facility] (Prevnar 13) [facility] Pneumococcal 13 2017-11-29 Completed [facility] Conjugate, PCV13 00:00:00 [facility] (Prevnar 13) [facility] Pneumococcal 13 2017-11-29 Completed [facility] Conjugate, PCV13 00:00:00 [facility] (Prevnar 13) [facility] Pneumococcal 13 2017-11-29 Completed [facility] Conjugate, PCV13 00:00:00 [facility] (Prevnar 13) Branch Pneumococcal 13 2017-11-29 Completed [facility] Conjugate, PCV13 00:00:00 [place] [facility] (Prevnar 13) [facility] Pneumococcal 13 2017-11-29 Completed [facility] Conjugate, PCV13 00:00:00 [place] [facility] (Prevnar 13) [facility] Pneumococcal 13 2017-11-29 Completed [facility] Conjugate, PCV13 00:00:00 [facility] (Prevnar 13) [facility] Pneumococcal 13 2017-11-29 Completed [facility] Conjugate, PCV13 00:00:00 [facility] (Prevnar 13) Branch Pneumococcal 13 2017-11-29 Completed [facility] Conjugate, PCV13 00:00:00 [facility] (Prevnar 13) Branch Pneumococcal 13 2017-11-29 Completed [facility] Conjugate, PCV13 00:00:00 [facility] (Prevnar 13) Branch Pneumococcal 13 2017-11-29 Completed [facility] Conjugate, PCV13 00:00:00 [place] [facility] (Prevnar 13) Branch Pneumococcal 13 2017-11-29 Completed [facility] Conjugate, PCV13 00:00:00 [place] [facility] (Prevnar 13) Branch Pneumococcal 13 2017-11-29 Completed [facility] Conjugate, PCV13 00:00:00 [place] [facility] (Prevnar 13) Branch Pneumococcal 13 2017-11-29 Completed [facility] Conjugate, PCV13 00:00:00 [place] [facility] (Prevnar 13) [facility] Pneumococcal 13 2017-11-29 Completed [facility] Conjugate, PCV13 00:00:00 [place] [facility] (Prevnar 13) Branch Pneumococcal 13 2017-11-29 Completed [facility] Conjugate, PCV13 00:00:00 [place] [facility] (Prevnar 13) Branch Pneumococcal 13 2017-11-29 Completed [facility] Conjugate, PCV13 00:00:00 [place] [facility] (Prevnar 13) [facility] Pneumococcal 13 2017-11-29 Completed [facility] Conjugate, PCV13 00:00:00 [place] [facility] (Prevnar 13) [facility] Pneumococcal 13 2017-11-29 Completed [facility] Conjugate, PCV13 00:00:00 [place] [facility] (Prevnar 13) [facility] Pneumococcal 13 2017-11-29 Completed [facility] Conjugate, PCV13 00:00:00 [place] [facility] (Prevnar 13) [facility] Pneumococcal 13 2017-11-29 Completed [facility] Conjugate, PCV13 00:00:00 [place] [facility] (Prevnar 13) [facility] Pneumococcal 13 2017-11-29 Completed [facility] Conjugate, PCV13 00:00:00 [facility] (Prevnar 13) Branch Pneumococcal 13 2017-11-29 Completed [facility] Conjugate, PCV13 00:00:00 [facility] (Prevnar 13) [facility] Pneumococcal 13 2017-11-29 Completed [facility] Conjugate, PCV13 00:00:00 [facility] (Prevnar 13) [facility] Pneumococcal 13 2017-11-29 Completed [facility] Conjugate, PCV13 00:00:00 [facility] (Prevnar 13) Branch Pneumococcal 13 2017-11-29 Completed [facility] Conjugate, PCV13 00:00:00 [facility] (Prevnar 13) [facility] Pneumococcal 13 2017-11-29 Completed [facility] Conjugate, PCV13 00:00:00 [place] [facility] (Prevnar 13) Branch Pneumococcal 13 2017-11-29 Completed [facility] Conjugate, PCV13 00:00:00 [facility] (Prevnar 13) [facility] Pneumococcal 13 2017-11-29 Completed [facility] Conjugate, PCV13 00:00:00 [place] [facility] (Prevnar 13) Branch Pneumococcal 13 2017-11-29 Completed [facility] Conjugate, PCV13 00:00:00 [place] [facility] (Prevnar 13) Branch Pneumococcal 13 2017-11-29 Completed [facility] Conjugate, PCV13 00:00:00 [place] [facility] (Prevnar 13) Branch Pneumococcal 13 2017-11-29 Completed [facility] Conjugate, PCV13 00:00:00 [place] [facility] (Prevnar 13) [facility] Pneumococcal 13 2017-11-29 Completed [facility] Conjugate, PCV13 00:00:00 [place] [facility] (Prevnar 13) [facility] Pneumococcal 13 2017-11-29 Completed [facility] Conjugate, PCV13 00:00:00 [place] [facility] (Prevnar 13) [facility] Pneumococcal 13 2017-11-29 Completed [facility] Conjugate, PCV13 00:00:00 [place] [facility] (Prevnar 13) [facility] Pneumococcal 13 2017-11-29 Completed [facility] Conjugate, PCV13 00:00:00 [facility] (Prevnar 13) [facility] Pneumococcal 13 2017-11-29 Completed [facility] Conjugate, PCV13 00:00:00 [facility] (Prevnar 13) [facility] Pneumococcal 13 2017-11-29 Completed [facility] Conjugate, PCV13 00:00:00 [facility] (Prevnar 13) [facility] Pneumococcal 13 2017-11-29 Completed [facility] Conjugate, PCV13 00:00:00 [facility] (Prevnar 13) Branch Pneumococcal 13 2017-11-29 Completed [facility] Conjugate, PCV13 00:00:00 [facility] (Prevnar 13) [facility] Pneumococcal 13 2017-11-29 Completed [facility] Conjugate, PCV13 00:00:00 [place] [facility] (Prevnar 13) [facility] Pneumococcal 13 2017-11-29 Completed [facility] Conjugate, PCV13 00:00:00 [facility] (Prevnar 13) [facility] Pneumococcal 13 2017-11-29 Completed [facility] Conjugate, PCV13 00:00:00 [facility] (Prevnar 13) [facility] Pneumococcal 13 2017-11-29 Completed [facility] Conjugate, PCV13 00:00:00 [place] [facility] (Prevnar 13) [facility] Pneumococcal 13 2017-11-29 Completed [facility] Conjugate, PCV13 00:00:00 [place] [facility] (Prevnar 13) [facility] Pneumococcal 13 2017-11-29 Completed [facility] Conjugate, PCV13 00:00:00 [facility] (Prevnar 13) [facility] Pneumococcal 13 2017-11-29 Completed [facility] Conjugate, PCV13 00:00:00 [place] [facility] (Prevnar 13) [facility] Pneumococcal 13 2017-11-29 Completed [facility] Conjugate, PCV13 00:00:00 [place] [facility] (Prevnar 13) [facility] Pneumococcal 13 2017-11-29 Completed [facility] Conjugate, PCV13 00:00:00 [place] [facility] (Prevnar 13) [facility] Pneumococcal 13 2017-11-29 Completed [facility] Conjugate, PCV13 00:00:00 [place] [facility] (Prevnar 13) [facility] Pneumococcal 13 2017-11-29 Completed [facility] Conjugate, PCV13 00:00:00 [place] [facility] (Prevnar 13) [facility] Pneumococcal 13 2017-11-29 Completed [facility] Conjugate, PCV13 00:00:00 [place] [facility] (Prevnar 13) [facility] Pneumococcal 13 2017-11-29 Completed [facility] Conjugate, PCV13 00:00:00 [place] [facility] (Prevnar 13) [facility] Pneumococcal 13 2017-11-29 Completed [facility] Conjugate, PCV13 00:00:00 [place] [facility] (Prevnar 13) Branch Pneumococcal 13 2017-11-29 Completed [facility] Conjugate, PCV13 00:00:00 [place] [facility] (Prevnar 13) [facility] Pneumococcal 13 2017-11-29 Completed [facility] Conjugate, PCV13 00:00:00 [place] [facility] (Prevnar 13) [facility] Pneumococcal 13 2017-11-29 Completed [facility] Conjugate, PCV13 00:00:00 [place] [facility] (Prevnar 13) [facility] Pneumococcal 13 2017-11-29 Completed [facility] Conjugate, PCV13 00:00:00 [place] [facility] (Prevnar 13) [facility] Pneumococcal 13 2017-11-29 Completed [facility] Conjugate, PCV13 00:00:00 [place] [facility] (Prevnar 13) [facility] Pneumococcal 13 2017-11-29 Completed [facility] Conjugate, PCV13 00:00:00 [place] [facility] (Prevnar 13) [facility] Pneumococcal 13 2017-11-29 Completed [facility] Conjugate, PCV13 00:00:00 [place] [facility] (Prevnar 13) Branch Pneumococcal 13 2017-11-29 Completed [facility] Conjugate, PCV13 00:00:00 [place] [facility] (Prevnar 13) [facility] Pneumococcal 13 2017-11-29 Completed [facility] Conjugate, PCV13 00:00:00 [place] [facility] (Prevnar 13) Branch Pneumococcal 13 2017-11-29 Completed [facility] Conjugate, PCV13 00:00:00 [place] [facility] (Prevnar 13) [facility] Pneumococcal 13 2017-11-29 Completed [facility] Conjugate, PCV13 00:00:00 [facility] (Prevnar 13) [facility] Pneumococcal 13 2017-11-29 Completed [facility] Conjugate, PCV13 00:00:00 [facility] (Prevnar 13) Branch Pneumococcal 13 2017-11-29 Completed [facility] Conjugate, PCV13 00:00:00 [facility] (Prevnar 13) Branch Pneumococcal 13 2017-11-29 Completed [facility] Conjugate, PCV13 00:00:00 [facility] (Prevnar 13) Branch Pneumococcal 13 2017-11-29 Completed [facility] Conjugate, PCV13 00:00:00 [place] [facility] (Prevnar 13) Branch Pneumococcal 13 2017-11-29 Completed [facility] Conjugate, PCV13 00:00:00 [place] [facility] (Prevnar 13) Branch Pneumococcal 13 2017-11-29 Completed [facility] Conjugate, PCV13 00:00:00 [place] [facility] (Prevnar 13) Branch Pneumococcal 13 2017-11-29 Completed [facility] Conjugate, PCV13 00:00:00 [place] [facility] (Prevnar 13) Branch Pneumococcal 13 2017-11-29 Completed [facility] Conjugate, PCV13 00:00:00 [place] [facility] (Prevnar 13) Branch Pneumococcal 13 2017-11-29 Completed [facility] Conjugate, PCV13 00:00:00 [place] [facility] (Prevnar 13) Branch Pneumococcal 13 2017-11-29 Completed [facility] Conjugate, PCV13 00:00:00 [place] [facility] (Prevnar 13) Branch Pneumococcal 13 2017-11-29 Completed [facility] Conjugate, PCV13 00:00:00 [place] [facility] (Prevnar 13) Branch Pneumococcal 13 2017-11-29 Completed [facility] Conjugate, PCV13 00:00:00 [place] [facility] (Prevnar 13) Branch Pneumococcal 13 2017-11-29 Completed [facility] Conjugate, PCV13 00:00:00 [place] [facility] (Prevnar 13) Branch Pneumococcal 13 2017-11-29 Completed [facility] Conjugate, PCV13 00:00:00 [place] [facility] (Prevnar 13) Branch Pneumococcal 13 2017-11-29 Completed [facility] Conjugate, PCV13 00:00:00 [facility] (Prevnar 13) Branch Pneumococcal 13 2017-11-29 Completed [facility] Conjugate, PCV13 00:00:00 [place] [facility] (Prevnar 13) Branch Pneumococcal 13 2017-11-29 Completed [facility] Conjugate, PCV13 00:00:00 [place] [facility] (Prevnar 13) [facility] Pneumococcal 13 2017-11-29 Completed [facility] Conjugate, PCV13 00:00:00 [place] [facility] (Prevnar 13) [facility] Influenza High Dose 2015-03-11 Completed [facility] 00:00:00 [facility] Influenza High Dose 2015-03-11 Completed [facility] 00:00:00 [facility] Influenza High Dose 2015-03-11 Completed [facility] 00:00:00 [facility] Influenza High Dose 2015-03-11 Completed [facility] 00:00:00 [facility] Influenza High Dose 2015-03-11 Completed [facility] 00:00:00 [facility] Influenza High Dose 2015-03-11 Completed [facility] 00:00:00 [facility] Influenza High Dose 2015-03-11 Completed [facility] 00:00:00 [facility] Influenza High Dose 2015-03-11 Completed [facility] 00:00:00 [facility] Influenza High Dose 2015-03-11 Completed [facility] 00:00:00 [facility] Influenza High Dose 2015-03-11 Completed [facility] 00:00:00 [facility] Influenza High Dose 2015-03-11 Completed [facility] 00:00:00 [facility] Influenza High Dose 2015-03-11 Completed [facility] 00:00:00 [facility] Influenza High Dose 2015-03-11 Completed [facility] 00:00:00 [facility] Influenza High Dose 2015-03-11 Completed [facility] 00:00:00 [facility] Influenza High Dose 2015-03-11 Completed [facility] 00:00:00 [facility] Influenza High Dose 2015-03-11 Completed [facility] 00:00:00 [facility] Influenza High Dose 2015-03-11 Completed [facility] 00:00:00 [facility] Influenza High Dose 2015-03-11 Completed [facility] 00:00:00 [facility] Influenza High Dose 2015-03-11 Completed [facility] 00:00:00 [facility] Influenza High Dose 2015-03-11 Completed [facility] 00:00:00 [facility] Influenza High Dose 2015-03-11 Completed [facility] 00:00:00 [facility] Influenza High Dose 2015-03-11 Completed [facility] 00:00:00 [facility] Influenza High Dose 2015-03-11 Completed [facility] 00:00:00 [facility] Influenza High Dose 2015-03-11 Completed [facility] 00:00:00 [facility] Influenza High Dose 2015-03-11 Completed [facility] 00:00:00 [facility] Influenza High Dose 2015-03-11 Completed [facility] 00:00:00 [facility] Influenza High Dose 2015-03-11 Completed [facility] 00:00:00 [facility] Influenza High Dose 2015-03-11 Completed [facility] 00:00:00 [facility] Influenza High Dose 2015-03-11 Completed [facility] 00:00:00 [facility] Influenza High Dose 2015-03-11 Completed [facility] 00:00:00 [facility] Influenza High Dose 2015-03-11 Completed [facility] 00:00:00 [facility] Influenza High Dose 2015-03-11 Completed [facility] 00:00:00 [facility] Influenza High Dose 2015-03-11 Completed [facility] 00:00:00 [facility] Influenza High Dose 2015-03-11 Completed [facility] 00:00:00 [facility] Influenza High Dose 2015-03-11 Completed [facility] 00:00:00 [facility] Influenza High Dose 2015-03-11 Completed [facility] 00:00:00 [facility] Influenza High Dose 2015-03-11 Completed [facility] 00:00:00 [facility] Influenza High Dose 2015-03-11 Completed [facility] 00:00:00 [facility] Influenza High Dose 2015-03-11 Completed [facility] 00:00:00 [facility] Influenza High Dose 2015-03-11 Completed [facility] 00:00:00 [facility] Influenza High Dose 2015-03-11 Completed [facility] 00:00:00 [facility] Influenza High Dose 2015-03-11 Completed [facility] 00:00:00 [facility] Influenza High Dose 2015-03-11 Completed [facility] 00:00:00 [facility] Influenza High Dose 2015-03-11 Completed [facility] 00:00:00 [facility] Influenza High Dose 2015-03-11 Completed [facility] 00:00:00 [facility] Influenza High Dose 2015-03-11 Completed [facility] 00:00:00 [facility] Influenza High Dose 2015-03-11 Completed [facility] 00:00:00 [facility] Influenza High Dose 2015-03-11 Completed [facility] 00:00:00 [facility] Influenza High Dose 2015-03-11 Completed [facility] 00:00:00 [facility] Influenza High Dose 2015-03-11 Completed [facility] 00:00:00 [facility] Influenza High Dose 2015-03-11 Completed [facility] 00:00:00 [facility] Influenza High Dose 2015-03-11 Completed [facility] 00:00:00 [facility] Influenza High Dose 2015-03-11 Completed [facility] 00:00:00 [facility] Influenza High Dose 2015-03-11 Completed [facility] 00:00:00 [facility] Influenza High Dose 2015-03-11 Completed [facility] 00:00:00 [facility] Influenza High Dose 2015-03-11 Completed [facility] 00:00:00 [facility] Influenza High Dose 2015-03-11 Completed [facility] 00:00:00 [facility] Influenza High Dose 2015-03-11 Completed [facility] 00:00:00 [facility] Influenza High Dose 2015-03-11 Completed [facility] 00:00:00 [facility] Influenza High Dose 2015-03-11 Completed [facility] 00:00:00 [facility] Influenza High Dose 2015-03-11 Completed [facility] 00:00:00 [facility] Influenza High Dose 2015-03-11 Completed [facility] 00:00:00 [facility] Influenza High Dose 2015-03-11 Completed [facility] 00:00:00 [facility] Influenza High Dose 2015-03-11 Completed [facility] 00:00:00 [facility] Influenza High Dose 2015-03-11 Completed [facility] 00:00:00 [facility] Influenza High Dose 2015-03-11 Completed [facility] 00:00:00 [facility] Influenza High Dose 2015-03-11 Completed [facility] 00:00:00 [facility] Influenza High Dose 2015-03-11 Completed [facility] 00:00:00 [facility] Influenza High Dose 2015-03-11 Completed [facility] 00:00:00 [facility] Influenza High Dose 2015-03-11 Completed [facility] 00:00:00 [facility] Influenza High Dose 2015-03-11 Completed [facility] 00:00:00 [facility] Influenza High Dose 2015-03-11 Completed [facility] 00:00:00 [facility] Influenza High Dose 2015-03-11 Completed [facility] 00:00:00 [facility] Influenza High Dose 2015-03-11 Completed [facility] 00:00:00 [facility] Influenza High Dose 2015-03-11 Completed [facility] 00:00:00 [facility] Influenza High Dose 2015-03-11 Completed [facility] 00:00:00 [facility] Influenza High Dose 2015-03-11 Completed [facility] 00:00:00 [facility] Influenza High Dose 2015-03-11 Completed [facility] 00:00:00 [facility] Influenza High Dose 2015-03-11 Completed [facility] 00:00:00 [facility] Influenza High Dose 2015-03-11 Completed [facility] 00:00:00 [facility] Influenza High Dose 2015-03-11 Completed [facility] 00:00:00 [facility] Influenza High Dose 2015-03-11 Completed [facility] 00:00:00 [facility] Influenza High Dose 2015-03-11 Completed [facility] 00:00:00 [facility] Influenza High Dose 2015-03-11 Completed [facility] 00:00:00 [facility] Influenza High Dose 2015-03-11 Completed [facility] 00:00:00 [facility] Influenza High Dose 2015-03-11 Completed [facility] 00:00:00 [facility] Influenza High Dose 2015-03-11 Completed [facility] 00:00:00 [facility] Influenza High Dose 2015-03-11 Completed [facility] 00:00:00 [facility] Influenza High Dose 2015-03-11 Completed [facility] 00:00:00 [facility] Influenza High Dose 2015-03-11 Completed [facility] 00:00:00 [facility] Influenza High Dose 2015-03-11 Completed [facility] 00:00:00 [facility] Influenza High Dose 2015-03-11 Completed [facility] 00:00:00 [facility] Influenza High Dose 2015-03-11 Completed [facility] 00:00:00 [facility] Influenza High Dose 2015-03-11 Completed [facility] 00:00:00 [facility] Influenza High Dose 2015-03-11 Completed [facility] 00:00:00 [facility] Influenza High Dose 2015-03-11 Completed [facility] 00:00:00 [facility] Influenza High Dose 2015-03-11 Completed [facility] 00:00:00 [facility] Influenza High Dose 2015-03-11 Completed [facility] 00:00:00 [facility] Influenza High Dose 2015-03-11 Completed [facility] 00:00:00 [facility] Influenza High Dose 2015-03-11 Completed [facility] 00:00:00 [facility] Influenza High Dose 2015-03-11 Completed [facility] 00:00:00 [facility] Influenza High Dose 2015-03-11 Completed [facility] 00:00:00 [facility] Influenza High Dose 2015-03-11 Completed [facility] 00:00:00 [facility] Influenza High Dose 2015-03-11 Completed [facility] 00:00:00 [facility] Influenza High Dose 2015-03-11 Completed [facility] 00:00:00 [facility] Influenza High Dose 2015-03-11 Completed [facility] 00:00:00 [facility] Influenza High Dose 2015-03-11 Completed [facility] 00:00:00 [facility] Influenza High Dose 2015-03-11 Completed [facility] 00:00:00 [facility] Influenza High Dose 2015-03-11 Completed [facility] 00:00:00 [facility] Influenza High Dose 2015-03-11 Completed [facility] 00:00:00 [facility] Influenza High Dose 2015-03-11 Completed [facility] 00:00:00 [facility] Influenza High Dose 2015-03-11 Completed [facility] 00:00:00 [facility] Influenza High Dose 2015-03-11 Completed [facility] 00:00:00 [facility] Influenza High Dose 2015-03-11 Completed [facility] 00:00:00 [facility] Influenza High Dose 2015-03-11 Completed [facility] 00:00:00 [facility] Influenza High Dose 2015-03-11 Completed [facility] 00:00:00 [facility] Influenza High Dose 2015-03-11 Completed [facility] 00:00:00 [facility] Influenza High Dose 2015-03-11 Completed [facility] 00:00:00 [facility] Influenza High Dose 2015-03-11 Completed [facility] 00:00:00 [facility] Influenza High Dose 2015-03-11 Completed [facility] 00:00:00 [facility] Influenza High Dose 2015-03-11 Completed [facility] 00:00:00 [facility] Influenza High Dose 2015-03-11 Completed [facility] 00:00:00 [facility] Influenza High Dose 2015-03-11 Completed [facility] 00:00:00 [facility] Influenza High Dose 2015-03-11 Completed [facility] 00:00:00 [facility] Influenza High Dose 2015-03-11 Completed [facility] 00:00:00 [facility] Influenza High Dose 2015-03-11 Completed [facility] 00:00:00 [facility] Influenza High Dose 2015-03-11 Completed [facility] 00:00:00 [facility] Influenza High Dose 2014-06-19 Completed [facility] 00:00:00 [facility] Influenza High Dose 2014-06-19 Completed [facility] 00:00:00 [facility] Influenza High Dose 2014-06-19 Completed [facility] 00:00:00 [facility] Influenza High Dose 2014-06-19 Completed [facility] 00:00:00 [facility] Influenza High Dose 2014-06-19 Completed [facility] 00:00:00 [facility] Influenza High Dose 2014-06-19 Completed [facility] 00:00:00 [facility] Influenza High Dose 2014-06-19 Completed [facility] 00:00:00 [facility] Influenza High Dose 2014-06-19 Completed [facility] 00:00:00 [facility] Influenza High Dose 2014-06-19 Completed [facility] 00:00:00 [facility] Influenza High Dose 2014-06-19 Completed [facility] 00:00:00 [facility] Influenza High Dose 2014-06-19 Completed [facility] 00:00:00 [facility] Influenza High Dose 2014-06-19 Completed [facility] 00:00:00 [facility] Influenza High Dose 2014-06-19 Completed [facility] 00:00:00 [facility] Influenza High Dose 2014-06-19 Completed [facility] 00:00:00 [facility] Influenza High Dose 2014-06-19 Completed [facility] 00:00:00 [facility] Influenza High Dose 2014-06-19 Completed [facility] 00:00:00 [facility] Influenza High Dose 2014-06-19 Completed [facility] 00:00:00 [facility] Influenza High Dose 2014-06-19 Completed [facility] 00:00:00 [facility] Influenza High Dose 2014-06-19 Completed [facility] 00:00:00 [facility] Influenza High Dose 2014-06-19 Completed [facility] 00:00:00 [facility] Influenza High Dose 2014-06-19 Completed [facility] 00:00:00 [facility] Influenza High Dose 2014-06-19 Completed [facility] 00:00:00 [facility] Influenza High Dose 2014-06-19 Completed [facility] 00:00:00 [facility] Influenza High Dose 2014-06-19 Completed [facility] 00:00:00 [facility] Influenza High Dose 2014-06-19 Completed [facility] 00:00:00 [facility] Influenza High Dose 2014-06-19 Completed [facility] 00:00:00 [facility] Influenza High Dose 2014-06-19 Completed [facility] 00:00:00 [facility] Influenza High Dose 2014-06-19 Completed [facility] 00:00:00 [facility] Influenza High Dose 2014-06-19 Completed [facility] 00:00:00 [facility] Influenza High Dose 2014-06-19 Completed [facility] 00:00:00 [facility] Influenza High Dose 2014-06-19 Completed [facility] 00:00:00 [facility] Influenza High Dose 2014-06-19 Completed [facility] 00:00:00 [facility] Influenza High Dose 2014-06-19 Completed [facility] 00:00:00 [facility] Influenza High Dose 2014-06-19 Completed [facility] 00:00:00 [facility] Influenza High Dose 2014-06-19 Completed [facility] 00:00:00 [facility] Influenza High Dose 2014-06-19 Completed [facility] 00:00:00 [facility] Influenza High Dose 2014-06-19 Completed [facility] 00:00:00 [facility] Influenza High Dose 2014-06-19 Completed [facility] 00:00:00 [facility] Influenza High Dose 2014-06-19 Completed [facility] 00:00:00 [facility] Influenza High Dose 2014-06-19 Completed [facility] 00:00:00 [facility] Influenza High Dose 2014-06-19 Completed [facility] 00:00:00 [facility] Influenza High Dose 2014-06-19 Completed [facility] 00:00:00 [facility] Influenza High Dose 2014-06-19 Completed [facility] 00:00:00 [facility] Influenza High Dose 2014-06-19 Completed [facility] 00:00:00 [facility] Influenza High Dose 2014-06-19 Completed [facility] 00:00:00 [facility] Influenza High Dose 2014-06-19 Completed [facility] 00:00:00 [facility] Influenza High Dose 2014-06-19 Completed [facility] 00:00:00 [facility] Influenza High Dose 2014-06-19 Completed [facility] 00:00:00 [facility] Influenza High Dose 2014-06-19 Completed [facility] 00:00:00 [facility] Influenza High Dose 2014-06-19 Completed [facility] 00:00:00 [facility] Influenza High Dose 2014-06-19 Completed [facility] 00:00:00 [facility] Influenza High Dose 2014-06-19 Completed [facility] 00:00:00 [facility] Influenza High Dose 2014-06-19 Completed [facility] 00:00:00 [facility] Influenza High Dose 2014-06-19 Completed [facility] 00:00:00 [facility] Influenza High Dose 2014-06-19 Completed [facility] 00:00:00 [facility] Influenza High Dose 2014-06-19 Completed [facility] 00:00:00 [facility] Influenza High Dose 2014-06-19 Completed [facility] 00:00:00 [facility] Influenza High Dose 2014-06-19 Completed [facility] 00:00:00 [facility] Influenza High Dose 2014-06-19 Completed [facility] 00:00:00 [facility] Influenza High Dose 2014-06-19 Completed [facility] 00:00:00 [facility] Influenza High Dose 2014-06-19 Completed [facility] 00:00:00 [facility] Influenza High Dose 2014-06-19 Completed [facility] 00:00:00 [facility] Influenza High Dose 2014-06-19 Completed [facility] 00:00:00 [facility] Influenza High Dose 2014-06-19 Completed [facility] 00:00:00 [facility] Influenza High Dose 2014-06-19 Completed [facility] 00:00:00 [facility] Influenza High Dose 2014-06-19 Completed [facility] 00:00:00 [facility] Influenza High Dose 2014-06-19 Completed [facility] 00:00:00 [facility] Influenza High Dose 2014-06-19 Completed [facility] 00:00:00 [facility] Influenza High Dose 2014-06-19 Completed [facility] 00:00:00 [facility] Influenza High Dose 2014-06-19 Completed [facility] 00:00:00 [facility] Influenza High Dose 2014-06-19 Completed [facility] 00:00:00 [facility] Influenza High Dose 2014-06-19 Completed [facility] 00:00:00 [facility] Influenza High Dose 2014-06-19 Completed [facility] 00:00:00 [facility] Influenza High Dose 2014-06-19 Completed [facility] 00:00:00 [facility] Influenza High Dose 2014-06-19 Completed [facility] 00:00:00 [facility] Influenza High Dose 2014-06-19 Completed [facility] 00:00:00 [facility] Influenza High Dose 2014-06-19 Completed [facility] 00:00:00 [facility] Influenza High Dose 2014-06-19 Completed [facility] 00:00:00 [facility] Influenza High Dose 2014-06-19 Completed [facility] 00:00:00 [facility] Influenza High Dose 2014-06-19 Completed [facility] 00:00:00 [facility] Influenza High Dose 2014-06-19 Completed [facility] 00:00:00 [facility] Influenza High Dose 2014-06-19 Completed [facility] 00:00:00 [facility] Influenza High Dose 2014-06-19 Completed [facility] 00:00:00 [facility] Influenza High Dose 2014-06-19 Completed [facility] 00:00:00 [facility] Influenza High Dose 2014-06-19 Completed [facility] 00:00:00 [facility] Influenza High Dose 2014-06-19 Completed [facility] 00:00:00 [facility] Influenza High Dose 2014-06-19 Completed [facility] 00:00:00 [facility] Influenza High Dose 2014-06-19 Completed [facility] 00:00:00 [facility] Influenza High Dose 2014-06-19 Completed [facility] 00:00:00 [facility] Influenza High Dose 2014-06-19 Completed [facility] 00:00:00 [facility] Influenza High Dose 2014-06-19 Completed [facility] 00:00:00 [facility] Influenza High Dose 2014-06-19 Completed [facility] 00:00:00 [facility] Influenza High Dose 2014-06-19 Completed [facility] 00:00:00 [facility] Influenza High Dose 2014-06-19 Completed [facility] 00:00:00 [facility] Influenza High Dose 2014-06-19 Completed [facility] 00:00:00 [facility] Influenza High Dose 2014-06-19 Completed [facility] 00:00:00 [facility] Influenza High Dose 2014-06-19 Completed [facility] 00:00:00 [facility] Influenza High Dose 2014-06-19 Completed [facility] 00:00:00 [facility] Influenza High Dose 2014-06-19 Completed [facility] 00:00:00 [facility] Influenza High Dose 2014-06-19 Completed [facility] 00:00:00 [facility] Influenza High Dose 2014-06-19 Completed [facility] 00:00:00 [facility] Influenza High Dose 2014-06-19 Completed [facility] 00:00:00 [facility] Influenza High Dose 2014-06-19 Completed [facility] 00:00:00 [facility] Influenza High Dose 2014-06-19 Completed [facility] 00:00:00 [facility] Influenza High Dose 2014-06-19 Completed [facility] 00:00:00 [facility] Influenza High Dose 2014-06-19 Completed [facility] 00:00:00 [facility] Influenza High Dose 2014-06-19 Completed [facility] 00:00:00 [facility] Influenza High Dose 2014-06-19 Completed [facility] 00:00:00 [facility] Influenza High Dose 2014-06-19 Completed [facility] 00:00:00 [facility] Influenza High Dose 2014-06-19 Completed [facility] 00:00:00 [facility] Influenza High Dose 2014-06-19 Completed [facility] 00:00:00 [facility] Influenza High Dose 2014-06-19 Completed [facility] 00:00:00 [facility] Influenza High Dose 2014-06-19 Completed [facility] 00:00:00 [facility] Influenza High Dose 2014-06-19 Completed [facility] 00:00:00 [facility] Influenza High Dose 2014-06-19 Completed [facility] 00:00:00 [facility] Influenza High Dose 2014-06-19 Completed [facility] 00:00:00 [facility] Influenza High Dose 2014-06-19 Completed [facility] 00:00:00 [facility] Influenza High Dose 2014-06-19 Completed [facility] 00:00:00 [facility] Influenza High Dose 2014-06-19 Completed [facility] 00:00:00 [facility] Influenza High Dose 2014-06-19 Completed [facility] 00:00:00 [facility] Influenza High Dose 2014-06-19 Completed [facility] 00:00:00 [facility] Influenza High Dose 2014-06-19 Completed [facility] 00:00:00 [facility] Influenza High Dose 2014-06-19 Completed [facility] 00:00:00 [facility] Influenza High Dose 2014-06-19 Completed [facility] 00:00:00 [facility] Influenza High Dose 2014-06-19 Completed [facility] 00:00:00 [facility] Influenza High Dose 2014-06-19 Completed [facility]00 [facility] [facility] Dose 2014-06-19 Completed [facility] 00:00:00 [facility] Influenza High Dose 2013-06-07 Completed [facility] 00[facility]00:00 [facility] Influenza High Dose 2013-06-07 Completed [facility] 00:00:00 [facility] Influenza High Dose 2013-06-07 Completed [facility] 00:00:00 [facility] Influenza High Dose 2013-06-07 Completed [facility] 00:00:00 [facility] Influenza High Dose 2013-06-07 Completed [facility] 00:00:00 [facility] Influenza High Dose 2013-06-07 Completed [facility] 00:00:00 [facility] Influenza High Dose 2013-06-07 Completed [facility] 00:00:00 [facility] Influenza High Dose 2013-06-07 Completed [facility] 00:00:00 [facility] Influenza High Dose 2013-06-07 Completed [facility] 00:00:00 [facility] Influenza High Dose 2013-06-07 Completed [facility] 00:00:00 [facility] Influenza High Dose 2013-06-07 Completed [facility] 00:00:00 [facility] Influenza High Dose 2013-06-07 Completed [facility] 00:00:00 [facility] Influenza High Dose 2013-06-07 Completed [facility] 00:00:00 [facility] Influenza High Dose 2013-06-07 Completed [facility] 00:00:00 [facility] Influenza High Dose 2013-06-07 Completed [facility] 00:00:00 [facility] Influenza High Dose 2013-06-07 Completed [facility] 00:00:00 [facility] Influenza High Dose 2013-06-07 Completed [facility] 00:00:00 [facility] Influenza High Dose 2013-06-07 Completed [facility] 00:00:00 [facility] Influenza High Dose 2013-06-07 Completed [facility] 00:00:00 [facility] Influenza High Dose 2013-06-07 Completed [facility] 00:00:00 [facility] Influenza High Dose 2013-06-07 Completed [facility] 00:00:00 [facility] Influenza High Dose 2013-06-07 Completed [facility] 00:00:00 [facility] Influenza High Dose 2013-06-07 Completed [facility] 00:00:00 [facility] Influenza High Dose 2013-06-07 Completed [facility] 00:00:00 [facility] Influenza High Dose 2013-06-07 Completed [facility] 00:00:00 [facility] Influenza High Dose 2013-06-07 Completed [facility] 00:00:00 [facility] Influenza High Dose 2013-06-07 Completed [facility] 00:00:00 [facility] Influenza High Dose 2013-06-07 Completed [facility] 00:00:00 [facility] Influenza High Dose 2013-06-07 Completed [facility] 00:00:00 [facility] Influenza High Dose 2013-06-07 Completed [facility] 00:00:00 [facility] Influenza High Dose 2013-06-07 Completed [facility] 00:00:00 [facility] Influenza High Dose 2013-06-07 Completed [facility] 00:00:00 [facility] Influenza High Dose 2013-06-07 Completed [facility] 00:00:00 [facility] Influenza High Dose 2013-06-07 Completed [facility] 00:00:00 [facility] Influenza High Dose 2013-06-07 Completed [facility] 00:00:00 [facility] Influenza High Dose 2013-06-07 Completed [facility] 00:00:00 [facility] Influenza High Dose 2013-06-07 Completed [facility] 00:00:00 [facility] Influenza High Dose 2013-06-07 Completed [facility] 00:00:00 [facility] Influenza High Dose 2013-06-07 Completed [facility] 00:00:00 [facility] Influenza High Dose 2013-06-07 Completed [facility] 00:00:00 [facility] Influenza High Dose 2013-06-07 Completed [facility] 00:00:00 [facility] Influenza High Dose 2013-06-07 Completed [facility] 00:00:00 [facility] Influenza High Dose 2013-06-07 Completed [facility] 00:00:00 [facility] Influenza High Dose 2013-06-07 Completed [facility] 00:00:00 [facility] Influenza High Dose 2013-06-07 Completed [facility] 00:00:00 [facility] Influenza High Dose 2013-06-07 Completed [facility] 00:00:00 [facility] Influenza High Dose 2013-06-07 Completed [facility] 00:00:00 [facility] Influenza High Dose 2013-06-07 Completed [facility] 00:00:00 [facility] Influenza High Dose 2013-06-07 Completed [facility] 00:00:00 [facility] Influenza High Dose 2013-06-07 Completed [facility] 00:00:00 [facility] Influenza High Dose 2013-06-07 Completed [facility] 00:00:00 [facility] Influenza High Dose 2013-06-07 Completed [facility] 00:00:00 [facility] Influenza High Dose 2013-06-07 Completed [facility] 00:00:00 [facility] Influenza High Dose 2013-06-07 Completed [facility] 00:00:00 [facility] Influenza High Dose 2013-06-07 Completed [facility] 00:00:00 [facility] Influenza High Dose 2013-06-07 Completed [facility] 00:00:00 [facility] Influenza High Dose 2013-06-07 Completed [facility] 00:00:00 [facility] Influenza High Dose 2013-06-07 Completed [facility] 00:00:00 [facility] Influenza High Dose 2013-06-07 Completed [facility] 00:00:00 [facility] Influenza High Dose 2013-06-07 Completed [facility] 00:00:00 [facility] Influenza High Dose 2013-06-07 Completed [facility] 00:00:00 [facility] Influenza High Dose 2013-06-07 Completed [facility] 00:00:00 [facility] Influenza High Dose 2013-06-07 Completed [facility] 00:00:00 [facility] Influenza High Dose 2013-06-07 Completed [facility] 00:00:00 [facility] Influenza High Dose 2013-06-07 Completed [facility] 00:00:00 [facility] Influenza High Dose 2013-06-07 Completed [facility] 00:00:00 [facility] Influenza High Dose 2013-06-07 Completed [facility] 00:00:00 [facility] Influenza High Dose 2013-06-07 Completed [facility] 00:00:00 [facility] Influenza High Dose 2013-06-07 Completed [facility] 00:00:00 [facility] Influenza High Dose 2013-06-07 Completed [facility] 00:00:00 [facility] Influenza High Dose 2013-06-07 Completed [facility] 00:00:00 [facility] Influenza High Dose 2013-06-07 Completed [facility] 00:00:00 [facility] Influenza High Dose 2013-06-07 Completed [facility] 00:00:00 [facility] Influenza High Dose 2013-06-07 Completed [facility] 00:00:00 [facility] Influenza High Dose 2013-06-07 Completed [facility] 00:00:00 [facility] Influenza High Dose 2013-06-07 Completed [facility] 00:00:00 [facility] Influenza High Dose 2013-06-07 Completed [facility] 00:00:00 [facility] Influenza High Dose 2013-06-07 Completed [facility] 00:00:00 [facility] Influenza High Dose 2013-06-07 Completed [facility] 00:00:00 [facility] Influenza High Dose 2013-06-07 Completed [facility] 00:00:00 [facility] Influenza High Dose 2013-06-07 Completed [facility] 00:00:00 [facility] Influenza High Dose 2013-06-07 Completed [facility] 00:00:00 [facility] Influenza High Dose 2013-06-07 Completed [facility] 00:00:00 [facility] Influenza High Dose 2013-06-07 Completed [facility] 00:00:00 [facility] Influenza High Dose 2013-06-07 Completed [facility] 00:00:00 [facility] Influenza High Dose 2013-06-07 Completed [facility] 00:00:00 [facility] Influenza High Dose 2013-06-07 Completed [facility] 00:00:00 [facility] Influenza High Dose 2013-06-07 Completed [facility] 00:00:00 [facility] Influenza High Dose 2013-06-07 Completed [facility] 00:00:00 [facility] Influenza High Dose 2013-06-07 Completed [facility] 00:00:00 [facility] Influenza High Dose 2013-06-07 Completed [facility] 00:00:00 [facility] Influenza High Dose 2013-06-07 Completed [facility] 00:00:00 [facility] Influenza High Dose 2013-06-07 Completed [facility] 00:00:00 [facility] Influenza High Dose 2013-06-07 Completed [facility] 00:00:00 [facility] Influenza High Dose 2013-06-07 Completed [facility] 00:00:00 [facility] Influenza High Dose 2013-06-07 Completed [facility] 00:00:00 [facility] Influenza High Dose 2013-06-07 Completed [facility] 00:00:00 [facility] Influenza High Dose 2013-06-07 Completed [facility] 00:00:00 [facility] Influenza High Dose 2013-06-07 Completed [facility] 00:00:00 [facility] Influenza High Dose 2013-06-07 Completed [facility] 00:00:00 [facility] Influenza High Dose 2013-06-07 Completed [facility] 00:00:00 [facility] Influenza High Dose 2013-06-07 Completed [facility] 00:00:00 [facility] Influenza High Dose 2013-06-07 Completed [facility] 00:00:00 [facility] Influenza High Dose 2013-06-07 Completed [facility] 00:00:00 [facility] Influenza High Dose 2013-06-07 Completed [facility] 00:00:00 [facility] Influenza High Dose 2013-06-07 Completed [facility] 00:00:00 [facility] Influenza High Dose 2013-06-07 Completed [facility] 00:00:00 [facility] Influenza High Dose 2013-06-07 Completed [facility] 00:00:00 [facility] Influenza High Dose 2013-06-07 Completed [facility] 00:00:00 [facility] Influenza High Dose 2013-06-07 Completed [facility] 00:00:00 [facility] Influenza High Dose 2013-06-07 Completed [facility] 00:00:00 [facility] Influenza High Dose 2013-06-07 Completed [facility] 00:00:00 [facility] Influenza High Dose 2013-06-07 Completed [facility] 00:00:00 [facility] Influenza High Dose 2013-06-07 Completed [facility] 00:00:00 [facility] Influenza High Dose 2013-06-07 Completed [facility] 00:00:00 [facility] Influenza High Dose 2013-06-07 Completed [facility] 00:00:00 [facility] Influenza High Dose 2013-06-07 Completed [facility] 00:00:00 [facility] Influenza High Dose 2013-06-07 Completed [facility] 00:00:00 [facility] Influenza High Dose 2013-06-07 Completed [facility] 00:00:00 [facility] Influenza High Dose 2013-06-07 Completed [facility] 00:00:00 [facility] Influenza High Dose 2013-06-07 Completed [facility] 00:00:00 [facility] Influenza High Dose 2013-06-07 Completed [facility] 00:00:00 [facility] Influenza High Dose 2013-06-07 Completed [facility] 00:00:00 [facility] Influenza High Dose 2013-06-07 Completed [facility] 00:00:00 [facility] Influenza High Dose 2013-06-07 Completed [facility] 00:00:00 [facility] Influenza High Dose 2013-06-07 Completed [facility] 00:00:00 [facility] Influenza High Dose 2013-06-07 Completed [facility] 00:00:00 [facility] Vital Signs Vital Name Observation Time Observation Value Comments Source Systolic blood 2022-10-07 20:57:00 114 mm[Hg] [facility] Diastolic blood 2022-10-07 20:57:00 61 mm[Hg] [facility] pressure [facility] Heart rate 2022-10-07 20:57:00 54 /min [facility] Body temperature 2022-10-07 20:57:00 36.94 Jadyn [facility] Respiratory rate 2022-10-07 20:57:00 20 /min [facility] Oxygen saturation in 2022-10-07 20:57:00 99 /min [facility] Arterial blood by [facility] Body weight 2022-10-07 17:40:00 68.3 kg [facility] BMI 2022-10-07 17:40:00 22.89 kg/m2 [facility] Systolic blood 2022-09-22 20:47:00 113 mm[Hg] [facility] Diastolic blood 2022-09-22 20:47:00 62 mm[Hg] [facility] pressure [facility] Heart rate 2022-09-22 20:47:00 57 /min [facility] Body temperature 2022-09-22 20:47:00 36.28 Jadyn [facility] Respiratory rate 2022-09-22 20:47:00 17 /min [facility] Body weight 2022-09-22 20:42:00 72.576 kg [facility] [place] BMI 2022-09-22 20:42:00 24.33 kg/m2 [facility] Systolic blood 2022-09-21 13:05:00 121 mm[Hg] [facility] pressure [facility] Diastolic blood 2022-09-21 13:05:00 65 mm[Hg] [facility] pressure [facility] Heart rate 2022-09-21 13:02:00 59 /min [facility] Body temperature 2022-09-21 13:02:00 36 Jadyn [facility] Respiratory rate 2022-09-21 13:02:00 17 /min [facility] Body height 2022-09-21 13:02:00 172.7 cm [facility] Body weight 2022-09-21 13:02:00 72.757 kg [facility] BMI 2022-09-21 13:02:00 24.39 kg/m2 [facility] Oxygen saturation in 2022-09-21 13:02:00 100 /min [facility] Arterial blood by [place] [employer] [facility] Systolic blood 2022-09-08 13:49:00 126 mm[Hg] [facility] pressure [facility] Diastolic blood 2022-09-08 13:49:00 66 mm[Hg] [facility] pressure [facility] Heart rate 2022-09-08 13:49:00 61 /min [facility] Body temperature 2022-09-08 13:48:00 36.06 Jadyn [facility] Body height 2022-09-08 13:48:00 172.7 cm [facility] Body weight 2022-09-08 13:48:00 71.804 kg [facility] BMI 2022-09-08 13:48:00 24.07 kg/m2 [facility] Oxygen saturation in 2022-09-08 13:48:00 97 /min [facility]terial blood by [place] [employer] [facility] Systolic blood 2022-08-11 20:25:00 126 mm[Hg] [facility] Diastolic blood 2022-08-11 20:25:00 69 mm[Hg] [facility] pressure [facility] Heart rate 2022-08-11 20:25:00 52 /min [facility] Body temperature 2022-08-11 20:20:00 35.94 Jadyn [facility] Body height 2022-08-11 20:20:00 172.7 cm [facility] Body weight 2022-08-11 20:20:00 71.532 kg [facility] BMI 2022-08-11 20:20:00 23.98 kg/m2 [facility] Oxygen saturation in 2022-08-11 20:20:00 99 /min [facility]terial blood by [facility] Systolic blood 2022-07-28 21:18:00 122 mm[Hg] [facility] pressure [facility] Diastolic blood 2022-07-28 21:18:00 71 mm[Hg] [facility] pressure [facility] Heart rate 2022-07-28 21:18:00 70 /min [facility] Respiratory rate 2022-07-28 21:17:00 18 /min [facility] Body height 2022-07-28 21:17:00 172.7 cm [facility] Body weight 2022-07-28 21:17:00 72.349 kg [facility] BMI 2022-07-28 21:17:00 24.25 kg/m2 [facility] Oxygen saturation in 2022-07-28 21:17:00 100 /min [facility] Arterial blood by [facility] Systolic blood 2022-07-14 16:06:00 126 mm[Hg] [facility] pressure [facility] Diastolic blood 2022-07-14 16:06:00 63 mm[Hg] [facility] pressure [facility] Heart rate 2022-07-14 16:06:00 71 /min [facility] Body temperature 2022-07-14 16:05:00 36.11 Jadyn [facility] Body height 2022-07-14 16:05:00 172.7 cm [facility] Body weight 2022-07-14 16:05:00 71.668 kg [facility] BMI 2022-07-14 16:05:00 24.02 kg/m2 [facility] Oxygen saturation in 2022-07-14 16:05:00 98 /min [facility]terial blood by [facility] juan [facility] Systolic blood 2022-06-30 22:54:00 116 mm[Hg] [facility] Diastolic blood 2022-06-30 22:54:00 60 mm[Hg] [facility] Heart rate 2022-06-30 22:54:00 64 /min [facility] Body temperature 2022-06-30 22:53:00 36.22 Jadyn [facility] Respiratory rate 2022-06-30 22:53:00 18 /min [facility] Body height 2022-06-30 22:53:00 172.7 cm [facility] Body weight 2022-06-30 22:53:00 68.947 kg [facility] BMI 2022-06-30 22:53:00 23.11 kg/m2 [facility] Systolic blood 2022-06-23 17:30:00 125 mm[Hg] [facility] Diastolic blood 2022-06-23 17:30:00 67 mm[Hg] [facility] Heart rate 2022-06-23 17:30:00 75 /min [facility] Respiratory rate 2022-06-23 17:30:00 15 /min [facility] Oxygen saturation in 2022-06-23 17:30:00 100 /min [facility] Arterial blood by [facility] Body temperature 2022-06-23 16:24:00 36.44 Jadyn [facility] Body height 2022-06-23 16:24:00 172.7 cm [facility] Body weight 2022-06-23 16:24:00 68.947 kg [facility] BMI 2022-06-23 16:24:00 23.11 kg/m2 [facility] Systolic blood 2022-06-22 18:56:00 130 mm[Hg] [facility] Diastolic blood 2022-06-22 18:56:00 64 mm[Hg] [facility] Heart rate 2022-06-22 18:56:00 67 /min [facility] Body temperature 2022-06-22 18:56:00 36.17 Jadyn [facility] Respiratory rate 2022-06-22 18:56:00 18 /min [facility] Body height 2022-06-22 18:56:00 172.7 cm [facility] Body weight 2022-06-22 18:56:00 69.491 kg [facility] BMI 2022-06-22 18:56:00 23.29 kg/m2 [facility] Oxygen saturation in 2022-06-22 18:56:00 100 /min [facility]terial blood by [facility] juan [facility] Systolic blood 2022-06-18 17:41:00 131 mm[Hg] [facility] pressure [facility] Diastolic blood 2022-06-18 17:41:00 57 mm[Hg] [facility] Heart rate 2022-06-18 17:41:00 63 /min [facility] Body temperature 2022-06-18 17:40:00 35.67 Jadyn [facility] Body height 2022-06-18 17:40:00 172.7 cm [facility] Body weight 2022-06-18 17:40:00 68.221 kg [facility] BMI 2022-06-18 17:40:00 22.87 kg/m2 [facility] Oxygen saturation in 2022-06-18 17:40:00 100 /min [facility]terial blood by [facility] Systolic blood 2022-06-05 17:11:00 115 mm[Hg] [facility] Diastolic blood 2022-06-05 17:11:00 60 mm[Hg] [facility] Heart rate 2022-06-05 17:11:00 76 /min [facility] Body temperature 2022-06-05 17:10:00 35.94 Jadyn [facility] Respiratory rate 2022-06-05 17:10:00 16 /min [facility] Body height 2022-06-05 17:10:00 172.7 cm [facility] Body weight 2022-06-05 17:10:00 68.72 kg [facility] BMI 2022-06-05 17:10:00 23.04 kg/m2 [facility] Oxygen saturation in 2022-06-05 17:10:00 99 /min [facility] Heart rate 2022-05-21 16:29:00 68 /min [facility] Oxygen saturation in 2022-05-21 16:29:00 97 /min [facility] Arterial blood by [facility] Systolic blood 2022-05-21 16:28:00 108 mm[Hg] [facility] Diastolic blood 2022-05-21 16:28:00 57 mm[Hg] [facility] Respiratory rate 2022-05-21 16:28:00 20 /min [facility] Body temperature 2022-05-21 15:48:00 36.39 Jadyn [facility] Body height 2022-05-12 22:15:00 172.7 cm [facility] Body weight 2022-05-12 22:15:00 64.411 kg [facility] BMI 2022-05-12 22:15:00 21.59 kg/m2 [facility] Heart rate 2022-05-21 16:21:00 66 /min [facility] Respiratory rate 2022-05-21 16:21:00 19 /min [facility] Oxygen saturation in 2022-05-21 16:21:00 98 /min [facility] Arterial blood by [facility] Systolic blood 2022-05-21 16:17:00 110 mm[Hg] [facility] Diastolic blood 2022-05-21 16:17:00 55 mm[Hg] [facility] Body temperature 2022-05-21 15:48:00 36.39 Jadyn [facility] Body height 2022-05-12 22:15:00 172.7 cm [facility] Body weight 2022-05-12 22:15:00 64.411 kg [facility] BMI 2022-05-12 22:15:00 21.59 kg/m2 [facility] Respiratory rate 2022-05-21 13:55:00 36 /min [facility] Systolic blood 2022-05-05 20:13:00 119 mm[Hg] [facility] Diastolic blood 2022-05-05 20:13:00 71 mm[Hg] [facility] Heart rate 2022-05-05 20:13:00 73 /min [facility] Body temperature 2022-05-05 20:11:00 36.17 Jadyn [facility] Body height 2022-05-05 20:11:00 172.7 cm [facility] Body weight 2022-05-05 20:11:00 64.819 kg [facility] BMI 2022-05-05 20:11:00 21.73 kg/m2 [facility] Oxygen saturation in 2022-05-05 20:11:00 97 /min [facility] Arterial blood by [employer] [facility] Systolic blood 2022-04-29 17:44:00 104 mm[Hg] [facility] Diastolic blood 2022-04-29 17:44:00 60 mm[Hg] [facility] Heart rate 2022-04-29 17:44:00 60 /min [facility] Body temperature 2022-04-29 17:43:00 36.22 Jadyn [facility] Body height 2022-04-29 17:43:00 172.7 cm [facility] Body weight 2022-04-29 17:43:00 64.501 kg [facility] BMI 2022-04-29 17:43:00 21.62 kg/m2 [facility] Oxygen saturation in 2022-04-29 17:43:00 96 /min [facility] Arterial blood by [employer] Pulse oximetry Branch Systolic blood 2022-04-15 16:54:00 121 mm[Hg] [facility] Diastolic blood 2022-04-15 16:54:00 63 mm[Hg] [facility] Heart rate 2022-04-15 16:54:00 64 /min [facility] Body temperature 2022-04-15 16:53:00 36.28 Jadyn [facility] Body height 2022-04-15 16:53:00 172.7 cm [facility] Body weight 2022-04-15 16:53:00 65.227 kg [facility] BMI 2022-04-15 16:53:00 21.86 kg/m2 [facility] Oxygen saturation in 2022-04-15 16:53:00 97 /min [facility] blood by [facility] juan Pulse oximetry Branch Systolic blood 2022-03-31 18:11:00 123 mm[Hg] [facility] Diastolic blood 2022-03-31 18:11:00 64 mm[Hg] [facility] Heart rate 2022-03-31 18:11:00 59 /min [facility] Body temperature 2022-03-31 18:10:00 35.89 Jadyn [facility] Body height 2022-03-31 18:10:00 172.7 cm [facility] Body weight 2022-03-31 18:10:00 67.541 kg [facility] BMI 2022-03-31 18:10:00 22.64 kg/m2 [facility] Oxygen saturation in 2022-03-31 18:10:00 100 /min [facility] [place] [facility] Systolic blood 2022-03-27 15:01:00 135 mm[Hg] [facility] Diastolic blood 2022-03-27 15:01:00 67 mm[Hg] [facility] Heart rate 2022-03-27 15:01:00 58 /min [facility] Body temperature 2022-03-27 15:01:00 36.39 Jadyn [facility] Respiratory rate 2022-03-27 15:01:00 17 /min [facility] Body height 2022-03-27 15:01:00 172.7 cm [facility] Body weight 2022-03-27 15:01:00 67.586 kg [facility] BMI 2022-03-27 15:01:00 22.66 kg/m2 [facility] Oxygen saturation in 2022-03-27 15:01:00 100 /min [facility] by [facility] Pulse oximetry [facility] Systolic blood 2022-03-24 15:54:00 132 mm[Hg] [facility] Diastolic blood 2022-03-24 15:54:00 65 mm[Hg] [facility] Heart rate 2022-03-24 15:54:00 69 /min [facility] Body temperature 2022-03-24 15:51:00 36.17 Jadyn [facility] Respiratory rate 2022-03-24 15:51:00 16 /min [facility] Body height 2022-03-24 15:51:00 172.7 cm [facility] Body weight 2022-03-24 15:51:00 66.724 kg [facility] BMI 2022-03-24 15:51:00 22.37 kg/m2 [facility] Oxygen saturation in 2022-03-24 15:51:00 99 /min [facility] blood by [facility] Pulse oximetry [facility] Systolic blood 2022-03-20 14:26:00 118 mm[Hg] [facility] Diastolic blood 2022-03-20 14:26:00 68 mm[Hg] [facility] Heart rate 2022-03-20 14:26:00 69 /min [facility] Body temperature 2022-03-20 14:26:00 36.28 Jadyn [facility] Respiratory rate 2022-03-20 14:26:00 18 /min [facility] Body weight 2022-03-20 14:26:00 67.132 kg [facility] BMI 2022-03-20 14:26:00 22.50 kg/m2 [facility] Oxygen saturation in 2022-03-20 14:26:00 98 /min [facility] by [employer] juan Pulse oximetry Branch Systolic blood 2022-03-17 14:33:00 125 mm[Hg] [facility] Diastolic blood 2022-03-17 14:33:00 81 mm[Hg] [facility] Heart rate 2022-03-17 14:33:00 64 /min [facility] Body temperature 2022-03-17 14:33:00 36.06 Jadyn [facility] Body height 2022-03-17 14:33:00 172.7 cm [facility] Body weight 2022-03-17 14:33:00 67.314 kg [facility] BMI 2022-03-17 14:33:00 22.56 kg/m2 [facility] Oxygen saturation in 2022-03-17 14:33:00 96 /min [facility] by [facility] Pulse oximetry Branch Systolic blood 2022-03-13 13:51:00 131 mm[Hg] [facility] Diastolic blood 2022-03-13 13:51:00 70 mm[Hg] [facility] Heart rate 2022-03-13 13:51:00 70 /min [facility] Body temperature 2022-03-13 13:51:00 36.33 Jadyn [facility] Respiratory rate 2022-03-13 13:51:00 18 /min [facility] Oxygen saturation in 2022-03-13 13:51:00 98 /min [facility] by [place] [employer] juan Pulse oximetry Branch Systolic blood 2022-03-09 18:45:00 112 mm[Hg] [facility] Diastolic blood 2022-03-09 18:45:00 60 mm[Hg] [facility] Heart rate 2022-03-09 18:45:00 62 /min [facility] Body temperature 2022-03-09 18:45:00 36.67 Jadyn [facility] Respiratory rate 2022-03-09 18:45:00 16 /min [facility] Body weight 2022-03-09 18:45:00 67.132 kg [facility] BMI 2022-03-09 18:45:00 22.50 kg/m2 [facility] Oxygen saturation in 2022-03-09 18:45:00 98 /min [facility] blood by [place] [employer] juan Pulse oximetry Branch Systolic blood 2022-03-06 12:31:00 136 mm[Hg] [facility] Diastolic blood 2022-03-06 12:31:00 72 mm[Hg] [facility] Heart rate 2022-03-06 12:31:00 61 /min [facility] Body temperature 2022-03-06 12:31:00 36.22 Jadyn [facility] Respiratory rate 2022-03-06 12:31:00 16 /min [facility] Oxygen saturation in 2022-03-06 12:31:00 97 /min [facility] by [place] [employer] juan Pulse oximetry Branch Systolic blood 2022-03-04 14:36:00 124 mm[Hg] [facility] Diastolic blood 2022-03-04 14:36:00 70 mm[Hg] [facility] Heart rate 2022-03-04 14:36:00 70 /min [facility] Body temperature 2022-03-04 14:36:00 36.83 Jadyn [facility] Respiratory rate 2022-03-04 14:36:00 18 /min [facility] Body height 2022-03-04 14:36:00 172.7 cm [facility] Body weight 2022-03-04 14:36:00 67.223 kg [facility] BMI 2022-03-04 14:36:00 22.53 kg/m2 [facility] Oxygen saturation in 2022-03-04 14:36:00 98 /min [facility] [place] [employer] juan Pulse oximetry Branch Systolic blood 2022-10-17 16:29:00 97 mm[Hg] [facility]iver [facility]ity [facility] Diastolic blood 2022-10-17 16:29:00 58 mm[Hg] Unive rsity of pressure [facility] Heart rate 2022-10-17 16:29:00 55 /min [facility] Body temperature 2022-10-17 16:29:00 36.89 Jadyn [facility] Oxygen saturation in 2022-10-17 16:29:00 99 /min [facility] Arterial blood by [facility] Pulse oximetry [place] Respiratory rate 2022-10-17 09:09:00 17 /min [facility] Body weight 2022-10-16 17:15:00 68.5 kg [facility] BMI 2022-10-16 17:15:00 22.96 kg/m2 [facility] Body height 2022-10-13 21:44:00 172.7 cm [facility] Procedures Procedure Date / Time Performing Clinician Source Performed POCT GLUCOSE (AUTOMATED) 2022-10-17 16:54:00 Boaz Spears [facility] POCT GLUCOSE (AUTOMATED) 2022-10-17 13:01:00 Boaz Spears [facility] CBC WITHOUT DIFF 2022-10-17 08:36:00 Kirby Correa [facility] BASIC METABOLIC PANEL (NA, 2022-10-17 08:36:00 Kirby Correa [facility] K, CL, CO2, GLUCOSE, BUN, Medica l Branch CREATININE, [place]) ACTIVATED PARTIAL THRMPLAS 2022-10-17 08:36:00 Dayo [facility] POCT GLUCOSE (AUTOMATED) 2022-10-17 01:25:00 Boaz Spears [facility] DIGOXIN 2022-10-17 00:42:00 Dayo Rodriguez [facility] ACTIVATED PARTIAL THRMPLAS 2022-10-17 00:42:00 Dayo [facility] POCT GLUCOSE (AUTOMATED) 2022-10-16 22:35:00 Boaz Spears [facility] URINALYSIS 2022-10-16 21:45:00 Sunny [facility] o f [facility] POCT GLUCOSE (AUTOMATED) 2022-10-16 19:02:00 Boaz Spears [facility] POCT GLUCOSE (AUTOMATED) 2022-10-16 13:58:00 Boaz Spears [facility] CBC WITHOUT DIFF 2022-10-16 11:52:00 Sunny [facility] BASIC METABOLIC PANEL (NA, 2022-10-16 11:52:00 Sunny Orr [facility] K, CL, CO2, GLUCOSE, BUN, Medica l Branch CREATININE, CA) MAGNESIUM 2022-10-16 11:52:00 Sunny, [facility] ACTIVATED PARTIAL THRMPLAS 2022-10-16 11:51:00 Dayo [facility] ACTIVATED PARTIAL THRMPLAS 2022-10-16 05:42:00 Dayo [facility] POCT GLUCOSE (AUTOMATED) 2022-10-16 03:46:00 Boaz Spears [facility] POCT GLUCOSE (AUTOMATED) 2022-10-16 00:22:00 Boaz Spears [facility] POCT GLUCOSE (AUTOMATED) 2022-10-15 22:26:00 Boaz Spears [facility] PROTHROMBIN TIME / INR 2022-10-15 22:24:00 Dayo Rodriguez [facility] ACTIVATED PARTIAL THRMPLAS 2022-10-15 22:24:00 Dayo [facility] CT HIP RIGHT WO CONTRAST 2022-10-15 19:41:58 Janki Hayes [facility] MR HIP RIGHT WO CONTRAST 2022-10-15 19:27:16 Janki Hayes [facility] POCT GLUCOSE (AUTOMATED) 2022-10-15 18:45:00 Boaz Spears [facility] POCT GLUCOSE (AUTOMATED) 2022-10-15 16:39:00 Boaz Spears [facility] POCT GLUCOSE (AUTOMATED) 2022-10-15 12:38:00 Boaz Spears [facility] CBC WITH DIFF 2022-10-15 10:32:00 [facility] 2022-10-15 10:32:00 Angelica [facility] BASIC METABOLIC PANEL (NA, 2022-10-15 10:32:00 Dayo Rodriguez [facility] K, CL, CO2, GLUCOSE, BUN, Medica l Branch CREATININE, CA) MAGNESIUM 2022-10-15 10:32[facility] POCT GLUCOSE (AUTOMATED) 2022-10-15 00:22:00 Boaz Spears [facility] PROTHROMBIN TIME / INR 2022-10-14 22:18:00 Mat Mccloud [facility] POCT GLUCOSE (AUTOMATED) 2022-10-14 21:26:00 Boaz Spears [facility] XR SHOULDER 2+ VW RIGHT 2022-10-14 21:25:00 Stephen Kwong [facility] POCT GLUCOSE (AUTOMATED) 2022-10-14 19:02:00 Boaz Spears [facility] HB ECG ROUTINE & RHYTHM 2022-10-14 15:36:33 Ariel [facility] POCT GLUCOSE (AUTOMATED) 2022-10-14 12:34:00 Boaz Spears [facility] BASIC METABOLIC PANEL (NA, 2022-10-14 10:04:00 Leesa [facility] K, CL, CO2, GLUCOSE, BUN, Medica l Branch CREATININE, CA) CBC WITH DIFF 2022-10-14 10:04:00 Leesa [facility] BASIC METABOLIC PANEL (NA, 2022-10-14 03:13:00 Leesa [facility] K, CL, CO2, GLUCOSE, BUN, Medica l Branch CREATININE, CA) POCT GLUCOSE (AUTOMATED) 2022-10-14 03:04:00 Boaz Spears [facility] POCT GLUCOSE (AUTOMATED) 2022-10-13 21:24:00 Boaz Spears [facility] XR CHEST 1 VW 2022-10-13 19:33:58 [facility] PELVIS <3 VW 2022-10-13 19:33:38 [facility] HEAD [facility] CONTRAST 2022-10-13 19:32:02 Haleigh Perla, [facility] CT THORAX WO CONTRAST 2022-10-13 19:31:33 Haleigh Perla, [facility] CT CERVICAL SPINE WO 2022-10-13 19:30:23 [facility] CONTRAST [facility] CBC WITH DIFF 2022-10-13 19:30:00 Leesa [facility] COMP. METABOLIC PANEL 2022-10-13 19:30:00 [id number] ACTIVATED PARTIAL THRMPLAS 2022-10-13 19:30:00 Leesa [facility] CT ABDOMEN PELVIS WO 2022-10-13 19:29:[facility] XR HIPS 2 VW RIGHT 2022-10-13 19:15:00 Wen Landers [facility] XR CHEST 1 VW 2022-10-13 19:05:00 Leesa [facility] HOSPITAL ADMISSION 2022-10-13 05:01:00 Doctor Unassigned, [facility] POCT GLUCOSE (AUTOMATED) 2022-10-07 21:46:00 Magdy Rose [facility] POCT GLUCOSE (AUTOMATED) 2022-10-07 21:46:00 Magdy Rose [facility] POCT GLUCOSE (AUTOMATED) 2022-10-07 18:15:00 Magdy Rose [facility] POCT GLUCOSE (AUTOMATED) 2022-10-07 18:15:00 Magdy Rose [facility] PHOSPHORUS 2022-10-07 09:41:00 Magyd Rose [facility] MAGNESIUM 2022-10-07 09:41:00 Rose [facility] BASIC METABOLIC PANEL (NA, 2022-10-07 09:41:00 [facility], CL, CO2, GLUCOSE, BUN, Medica l Branch CREATININE, CA) CBC WITH DIFF 2022-10-07 09:41:00 Christy [facility] PROTHROMBIN TIME / INR 2022-10-07 09:41:00 Esau Reed [facility] PHOSPHORUS 2022-10-07 09:41:00 Magdy Rose [facility] MAGNESIUM 2022-10-07 09:41:00 Rose [facility] BASIC METABOLIC PANEL (NA, 2022-10-07 09:41:00 Harrison, [facility] K, CL, CO2, GLUCOSE, BUN, Medica l Branch CREATININE, CA) CBC WITH DIFF 2022-10-07 09:41:00 Christy [facility] PROTHROMBIN TIME / INR 2022-10-07 09:41:00 Esau Reed [facility] POCT GLUCOSE (AUTOMATED) 2022-10-07 01:51:00 Magdy Rose [facility] POCT GLUCOSE (AUTOMATED) 2022-10-07 01:51:00 Magdy Rose [facility] POCT GLUCOSE (AUTOMATED) 2022-10-06 22:18:00 Magdy Rose [facility] POCT GLUCOSE (AUTOMATED) 2022-10-06 22:18:00 Magdy Rose [facility] POCT GLUCOSE (AUTOMATED) 2022-10-06 17:34:00 Magdy Rose [facility] POCT GLUCOSE (AUTOMATED) 2022-10-06 17:34:00 Magdy Rose [facility] FLOW CYTOMETRY 2022-10-06 16:03:00 Camilo Zazueta [facility] BONE MARROW PATHOLOGY 2022-10-06 16:03:00 Sg [facility] FLOW CYTOMETRY 2022-10-06 16:03:00 Camilo Zazueta [facility] MISCELLANEOUS SEND OUT 2022-10-06 16:03:00 Fernando [facility] POCT GLUCOSE (AUTOMATED) 2022-10-06 12:44:00 Magdy Rose [facility] POCT GLUCOSE (AUTOMATED) 2022-10-06 12:44:00 Magdy Rose [facility] PHOSPHORUS 2022-10-06 10:20:00 Rose [facility] MAGNESIUM 2022-10-06 10:20:00 Rose [facility] BASIC METABOLIC PANEL (NA, 2022-10-06 10:20:00 [facility], CO2, GLUCOSE, BUN, Medica l Branch CREATININE, CA) CBC WITH DIFF 2022-10-06 10:20:00 Rose [facility] PHOSPHORUS 2022-10-06 10:20:00 Rose [facility] MAGNESIUM 2022-10-06 10:20:00 Rose [facility] CBC WITH DIFF 2022-10-06 10:20:00 [facility] (NA, 2022-10-06 10:20:00 Magdy Rose [facility] K, CL, CO2, GLUCOSE, BUN, Medica l Branch CREATININE, CA) POCT GLUCOSE (AUTOMATED) 2022-10-06 01:25:00 Magdy Rose [facility] POCT GLUCOSE (AUTOMATED) 2022-10-06 01:25:00 Magdy Rose [facility] POCT GLUCOSE (AUTOMATED) 2022-10-05 21:55:00 Magdy Rose [facility] POCT GLUCOSE (AUTOMATED) 2022-10-05 21:55:00 Magdy Rose [facility] POCT GLUCOSE (AUTOMATED) 2022-10-05 17:34:00 RoseMagdy [facility] POCT GLUCOSE (AUTOMATED) 2022-10-05 17:34:00 EddiefarazMagdy [facility] POCT GLUCOSE (AUTOMATED) 2022-10-05 14:07:00 RoseMagdy [facility] POCT GLUCOSE (AUTOMATED) 2022-10-05 14:07:00 RoseMagdy [facility] PHOSPHORUS 2022-10-05 10:20:00 Rose [facility] MAGNESIUM 2022-10-05 10:20:00 Rose [facility] BASIC METABOLIC PANEL (NA, 2022-10-05 10:20:00 Magdy Rose [facility] K, CL, CO2, GLUCOSE, BUN, Medica l Branch CREATININE, CA) CBC WITH DIFF 2022-10-05 10:20:00 Rose [facility] PROTHROMBIN TIME / INR 2022-10-05 10:20:00 Magdy Rose [facility] PHOSPHORUS 2022-10-05 10:20:00 Rose [facility] MAGNESIUM 2022-10-05 10:20:00 Rose [facility] CBC WITH DIFF 2022-10-05 10:20:00 Rose [facility] BASIC METABOLIC PANEL (NA, 2022-10-05 10:20:00 Magdy Rose [facility] [place] K, CL, CO2, GLUCOSE, BUN, Medica l Branch CREATININE, CA) PROTHROMBIN TIME / INR 2022-10-05 10:20:00 Magdy Rose [facility] POCT GLUCOSE (AUTOMATED) 2022-10-05 01:18:00 Magdy Rose [facility] POCT GLUCOSE (AUTOMATED) 2022-10-05 01:18:00 Rose Magdy [facility] POCT GLUCOSE (AUTOMATED) 2022-10-04 22:31:00 Magdy Rose [facility] POCT GLUCOSE (AUTOMATED) 2022-10-04 22:31:00 Magdy Rose [facility] POCT GLUCOSE (AUTOMATED) 2022-10-04 17:32:00 Magdy Rose [facility] POCT GLUCOSE (AUTOMATED) 2022-10-04 17:32:00 Magdy Rose [facility] DIFF CONSULT BY 2022-10-04 17:22:00 Rachana [facility] CBC WITH DIFF 2022-10-04 17:22:00 Rachana [facility] DIFF CONSULT 2022-10-04 17:22:00 Rachana [facility] HIT - AB 2022-10-04 17:22:00 Rachana [facility] EXTRA SST HOLD FOR ARUP 2022-10-04 17:22:00 Rachana [facility] DIFF CONSULT BY 2022-10-04 17:22:00 Rachana [facility] HIT - AB 2022-10-04 17:22:00 Rachana [facility] CBC WITH DIFF 2022-10-04 17:22:00 Rachana [facility] DIFF CONSULT 2022-10-04 17:22:00 Rachana [facility] INTERPRETATION [facility] EXTRA SST HOLD FOR [facility] 2022-10-04 17:22:00 Rachana [facility] POCT GLUCOSE (AUTOMATED) 2022-10-04 13:26:00 Magdy Rose [facility] POCT GLUCOSE (AUTOMATED) 2022-10-04 13:26:00 Magdy Rose [facility] PHOSPHORUS 2022-10-04 06:04:00 Magdy Rose [facility] MAGNESIUM 2022-10-04 06:04:00 Rose Magdy [facility] BASIC METABOLIC PANEL (NA, 2022-10-04 06:04:00 [facility], [facility], CO2, GLUCOSE, BUN, Medica l Branch CREATININE, CA) CBC WITH DIFF 2022-10-04 06:04:00 HeidariMagdy [facility] PROTHROMBIN TIME / INR 2022-10-04 06:04:00 HeidariMagdy [facility] ACTIVATED PARTIAL THRMPLAS 2022-10-04 06:04:00 [facility]ari [facility] 2022-10-04 06:04:00 Heidari Magdy [facility] MAGNESIUM 2022-10-04 06:04:00 Heidari Magdy [facility] CBC WITH DIFF 2022-10-04 06:04:00 Heidari [facility] BASIC METABOLIC PANEL (NA, 2022-10-04 06:04:00 [facility], CL, CO2, GLUCOSE, BUN, Medica l Branch CREATININE, CA) PROTHROMBIN TIME / INR 2022-10-04 06:04:00 Heidari Magdy [facility] ACTIVATED PARTIAL THRMPLAS 2022-10-04 06:04:00 HeidariMagdy U [facility] POCT GLUCOSE (AUTOMATED) 2022-10-04 01:07:00 HeidariMagdy [facility] POCT GLUCOSE (AUTOMATED) 2022-10-04 01:07:00 HeidariMagdy [facility] POCT GLUCOSE (AUTOMATED) 2022-10-03 23:28:00 Heidari Magdy [facility] POCT GLUCOSE (AUTOMATED) 2022-10-03 23:28:00 HeidariMagdy [facility] ACTIVATED PARTIAL THRMPLAS 2022-10-03 20:20:00 Heidari, Magdy U [facility] ACTIVATED PARTIAL THRMPLAS 2022-10-03 20:20:00 Heidari, Magdy U [facility] POCT GLUCOSE (AUTOMATED) 2022-10-03 18:13:00 Heidari, Magdy [facility] POCT GLUCOSE (AUTOMATED) 2022-10-03 18:13:00 Magdy Rose [facility] POCT GLUCOSE (AUTOMATED) 2022-10-03 17:22:00 Magdy Rose [facility] POCT GLUCOSE (AUTOMATED) 2022-10-03 17:22:00 Magdy Rose [facility] PROTHROMBIN TIME / INR 2022-10-03 13:44:00 Magdy Rose [facility] ACTIVATED PARTIAL THRMPLAS 2022-10-03 13:44:00 [facility] (ID NOW RAPID 2022-10-03 13:44:00 Magdy Rose [facility]ive [facility] TESTING) Medical Branch LAB ONLY COVID 2022-10-03 13:44:00 Magdy Rose [facility] [place] INTERPRETATION [facility] COVID-19 (ID NOW RAPID 2022-10-03 13:44:00 Magdy Rose [facility] TESTING) Medical Branch PROTHROMBIN TIME / INR 2022-10-03 13:44:00 Magdy Rose [facility] ACTIVATED PARTIAL THRMPLAS 2022-10-03 13:44:00 [facility] COVID 2022-10-03 13:44:00 Magdy Rose [facility] [place] INTERPRETATION [facility] POCT GLUCOSE (AUTOMATED) 2022-10-03 12:27:00 Magdy Rose [facility] POCT GLUCOSE (AUTOMATED) 2022-10-03 12:27:00 Magdy Rose [facility] PROTHROMBIN TIME / INR 2022-10-03 10:22:00 Magdy Rose [facility] PROTHROMBIN TIME / INR 2022-10-03 10:22:00 Magdy [facility] PHOSPHORUS 2022-10-03 10:15:00 Magdy Rose [facility] [place] [facility] MAGNESIUM 2022-10-03 10:15:00 Heidari Magdy [facility] BASIC METABOLIC PANEL (NA, 2022-10-03 10:15:00 Heidari, Magdy U [facility] K, CL, CO2, GLUCOSE, BUN, Medica l Branch CREATININE, CA) CBC WITH DIFF 2022-10-03 10:15:00 Heidari, [facility] HIV 1/2 AG-AB WITH REFLEX 2022-10-03 10:15:00 [facility] 2022-10-03 10:15:00 Heidari [facility] MAGNESIUM 2022-10-03 10:15:00 Heidari, [facility] CBC WITH DIFF 2022-10-03 10:15:00 Heidari, [facility] BASIC METABOLIC PANEL (NA, 2022-10-03 10:15:00 Heidari, Magdy U [facility] K, CL, CO2, GLUCOSE, BUN, Medica l Branch CREATININE, CA) HIV 1/2 AG-AB WITH REFLEX 2022-10-03 10:15:00 Kinjal Reich [facility] POCT GLUCOSE (AUTOMATED) 2022-10-03 01:57:00 Magdy Rose [facility] POCT GLUCOSE (AUTOMATED) 2022-10-03 01:57:00 Magdy Rose [facility] ACTIVATED PARTIAL THRMPLAS 2022-10-02 21:19:00 Yohannes [facility] ACTIVATED PARTIAL THRMPLAS 2022-10-02 21:19:00 Yohannes [facility] POCT GLUCOSE (AUTOMATED) 2022-10-02 21:06:00 TaniariMagdy [facility] POCT GLUCOSE (AUTOMATED) 2022-10-02 21:06:00 Magdy Rose [facility] CARDIAC CATHETERIZATION 2022-10-02 17:34:21 Higinio Dailey [facility] CARDIAC CATHETERIZATION 2022-10-02 17:34:21 Ashlie [facility] CARDIAC CATHETERIZATION 2022-10-02 17:34:21 Ashlie [facility] CARDIAC CATHETERIZATION 2022-10-02 17:34:21 Ashlie [facility] CARDIAC CATHETERIZATION 2022-10-02 17:34:21 Tyler [facility] CARDIAC CATHETERIZATION 2022-10-02 17:34:21 Ashlie [facility] POCT GLUCOSE (AUTOMATED) 2022-10-02 13:13:00 Magdy Rose [facility] POCT GLUCOSE (AUTOMATED) 2022-10-02 13:13:00 Magdy Rose [facility] POCT GLUCOSE (AUTOMATED) 2022-10-02 10:59:00 Rose Magdy [facility] POCT GLUCOSE (AUTOMATED) 2022-10-02 10:59:00 Magdy Rose [facility] PHOSPHORUS 2022-10-02 08:39:00 Magdy Rose [facility] MAGNESIUM 2022-10-02 08:39:00 Magdy Rose [facility] BASIC METABOLIC PANEL (NA, 2022-10-02 08:39:00 Magdy [facility] [place] K, CL, CO2, GLUCOSE, BUN, Medica l Branch CREATININE, CA) CBC WITH DIFF 2022-10-02 08:39:00 [facility] / INR 2022-10-02 08:39:00 Magdy Rose [facility] PHOSPHORUS 2022-10-02 08:39:00 Magdy Rose [facility] MAGNESIUM 2022-10-02 08:39:00 Rose [facility] CBC WITH DIFF 2022-10-02 08:39:00 Rose [facility] BASIC METABOLIC PANEL (NA, 2022-10-02 08:39:00 Magdy Rose [facility] [place] K, CL, CO2, GLUCOSE, BUN, Medica l Branch CREATININE, CA) PROTHROMBIN TIME / INR 2022-10-02 08:39:00 Rose Magdy [facility] POCT GLUCOSE (AUTOMATED) 2022-10-02 01:47:00 TaniaanuMagdy [facility] POCT GLUCOSE (AUTOMATED) 2022-10-02 01:47:00 EddieidariMagdy [facility] POCT GLUCOSE (AUTOMATED) 2022-10-01 22:33:00 EddieidariMagdy [facility] POCT GLUCOSE (AUTOMATED) 2022-10-01 22:33:00 Eddieidari Magdy [facility] POCT GLUCOSE (AUTOMATED) 2022-10-01 12:40:00 EddieidaanuMagdy [facility] POCT GLUCOSE (AUTOMATED) 2022-10-01 12:40:00 Rose Magdy [facility] PHOSPHORUS 2022-10-01 10:22:00 Eddieidaanu [facility] [place] [facility] MAGNESIUM 2022-10-01 10:22:00 Eddieidaanu [facility] [place] [facility] BASIC METABOLIC PANEL (NA, 2022-10-01 10:22:00 EddieidaMagdy brennan [facility] [place] K, CL, CO2, GLUCOSE, BUN, Medica l Branch CREATININE, CA) CBC WITH DIFF 2022-10-01 10:22:00 Eddieidaanu [facility] [place] [facility] PROTHROMBIN TIME / INR 2022-10-01 10:22:00 [facility] PHOSPHORUS 2022-10-01 10:22:00 [facility] MAG[facility]UM 2022-10-01 10:22:00 Eddieidari [facility] [place] [facility] CBC WITH DIFF 2022-10-01 10:22:00 Heidari, [facility] [place] [facility] BASIC METABOLIC PANEL (NA, 2022-10-01 10:22:00 HeidariMagdy [facility] [place] K, CL, CO2, GLUCOSE, BUN, Medica l Branch CREATININE, CA) PROTHROMBIN TIME / INR 2022-10-01 10:22:00 Magdy Rose [facility] URINE CULTURE 2022-10-01 02:44:00 David Gibbs [facility] URINE CULTURE 2022-10-01 02:44:00 [facility] POCT GLUCOSE (AUTOMATED) 2022-10-01 02:10:00 Magdy Rose [facility] POCT GLUCOSE (AUTOMATED) 2022-10-01 02:10:00 Magdy Rose [facility] POCT GLUCOSE (AUTOMATED) 2022-09-30 20:42:00 Magdy Rose [facility] POCT GLUCOSE (AUTOMATED) 2022-09-30 20:42:00 Magdy Rose [facility] TRANSTHORACIC ECHO (TTE) 2022-09-30 20:32:00 David Gibbs [facility] W/ CONTRAST [facility] TRANSTHORACIC ECHO (TTE) 2022-09-30 20:32:00 David Gibbs [facility] W/ CONTRAST [facility] POCT GLUCOSE (AUTOMATED) 2022-09-30 16:30:00 Magdy Rose [facility] POCT GLUCOSE (AUTOMATED) 2022-09-30 16:30:00 Magdy Rose [facility] DIGOXIN 2022-09-30 15:30:00 Yohannes [facility] HBC ANTIBODY (IGM & IGG) 2022-09-30 15:30:00 Magdy Rose [facility] DIGOXIN 2022-09-30 15:30:00 Yohannes [facility] HBC ANTIBODY (IGM & IGG) 2022-09-30 15:30:00 Magdy Rose [facility] HB ECG ROUTINE & RHYTHM 2022-09-30 15:09:50 David Gibbs [facility] HB ECG ROUTINE & RHYTHM 2022-09-30 15:09:50 Bernie [facility] POCT GLUCOSE (AUTOMATED) 2022-09-30 12:30:00 Magdy Rose [facility] POCT GLUCOSE (AUTOMATED) 2022-09-30 12:30:00 EddiefarazRayaMagdy [facility] BASIC METABOLIC PANEL (NA, 2022-09-30 09:34:00 [facility] K, CL, CO2, GLUCOSE, BUN, Medica l Branch CREATININE, CA) CBC WITHOUT DIFF 2022-09-30 09:34:00 [facility] [place] [facility] PROTHROMBIN TIME / INR 2022-09-30 09:34:00 Leming [facility] BASIC METABOLIC PANEL (NA, 2022-09-30 09:34:00 [facility] K, CL, CO2, GLUCOSE, BUN, Medica l Branch CREATININE, CA) CBC WITHOUT DIFF 2022-09-30 09:34:00 [facility] PROTHROMBIN TIME / INR 2022-09-30 09:34:00 Dukes [facility] POCT GLUCOSE (AUTOMATED) 2022-09-30 02:36:00 EddiefarazRayaMagdy [facility] POCT GLUCOSE (AUTOMATED) 2022-09-30 02:36:00 Magdy Rose [facility] RETROPERITONEAL LIMITED 2022-09-30 01:53:13 David Gibbs [facility] [place] RETROPERITONEAL LIMITED 2022-09-30 01:53:13 David Gibbs [facility] URINALYSIS 2022-09-30 01:18:00 David Gibbs [facility] URINALYSIS 2022-09-30 01:18:00 David Gibbs [facility] HB ECG ROUTINE & RHYTHM 2022-09-30 00:49:23 Brigid Dukes [facility] HB ECG ROUTINE & RHYTHM 2022-09-30 00:49:23 Brigid Dukes [facility] MRSA / MSSA SCREEN BY PCR, 2022-09-29 23:11:00 Gibbs, David [facility] MRSA / MSSA SCREEN BY PCR, 2022-09-29 23:11:00 David Gibbs [facility] POCT GLUCOSE (AUTOMATED) 2022-09-29 21:55:00 TaniaanuMagdy [facility] POCT GLUCOSE (AUTOMATED) 2022-09-29 21:55:00 Magdy Rose [facility] CBC WITH DIFF 2022-09-29 21:00:00 Ernst [facility] PROTHROMBIN TIME / INR 2022-09-29 21:00:00 Ernst [facility] ACTIVATED PARTIAL THRMPLAS 2022-09-29 21:00:00 Ernst [facility] CBC WITH DIFF 2022-09-29 21:00:00 Ernst [facility] PROTHROMBIN TIME / INR 2022-09-29 21:00:00 Ernst [facility] ACTIVATED PARTIAL THRMPLAS 2022-09-29 21:00:00 Ernst [facility] PHOSPHORUS 2022-09-29 20:59:00 Ernst [facility] MAGNESIUM 2022-09-29 20:59:00 Ernst [facility] BASIC METABOLIC PANEL (NA, 2022-09-29 20:59:00 Ernst [facility] K, CL, CO2, GLUCOSE, BUN, Medica l Branch CREATININE, CA) HEPATITIS B SURFACE 2022-09-29 20:59:00 Aby Main [facility] ANTIBODY [facility] HEPATITIS B SURFACE 2022-09-29 20:59:00 Aby Main [facility] ANTIGEN [facility] BASIC METABOLIC PANEL (NA, 2022-09-29 20:59:00 [facility] K, CL, CO2, GLUCOSE, BUN, Medica l Branch CREATININE, CA) PHOSPHORUS 2022-09-29 20:59:00 Ernst [facility] MAGNESIUM 2022-09-29 20:59:00 Ernst [facility] HEPATITIS B SURFACE 2022-09-29 20:59:00 Aby Main [facility] ANTIGEN Medical Branch HEPATITIS B SURFACE 2022-09-29 20:59:00 Aby Main [facility] ANTIBODY Medical Branch XR CHEST 1 VW 2022-09-29 19:44:04 Ernst [facility] XR CHEST 1 VW 2022-09-29 19:44:04 Ernst [facility] DISCLOSURE AND CONSENT, 2022-09-29 05:01:00 Doctor Unassigned, [facility] MEDICAL AND SURGICAL [place] [facility] PROCEDURES DISCLOSURE AND CONSENT, 2022-09-29 05:01:00 Doctor Unassigned, [facility] MEDICAL AND SURGICAL [place] [facility] PROCEDURES HOSPITAL ADMISSION 2022-09-29 05:01:00 Doctor Chucky, [facility] [place] EKG-12 LEAD 2022-09-23 00:06:18 Oleg Foster [facility] COMP. METABOLIC PANEL 2022-09-22 22:28:00 Oleg Foster [facility] ([id number]) [facility] CBC WITH DIFF 2022-09-22 22:28:00 Mohsen [facility] CBC WITH DIFF 2022-09-22 22:28:00 Oleg Foster [facility] COMP. METABOLIC PANEL 2022-09-22 22:28:00 Mohsen [facility] ([id number]) [facility] XR CHEST 2 VW 2022-09-22 22:00:49 Oleg Foster [facility] XR CHEST 2 VW 2022-09-22 22:00:49 Oleg Foster [facility] HB ECG ROUTINE & RHYTHM 2022-09-22 21:26:15 Oleg Foster [facility] CONSENT/REFUSAL FOR 2022-09-22 20:29:22 Doctor Chucky [facility] DIAGNOSIS AND TREATMENT [facility] [place] CONSENT/REFUSAL FOR 2022-09-22 20:29:22 Doctor Chucky [facility] DIAGNOSIS AND TREATMENT [facility] [place] EMERGENCY SERVICES 2022-09-22 05:01:00 Doctor Unassigned, [facility] AGREEMENTS AND [facility] AUTHORIZATIONS URINE DRUG (IMMUNOASSAY) - 2022-09-21 15:24:00 nYes [facility] COMPREHENSIVE DRUG SCREEN Medica l Branch URINE DRUG (LCMSMS) - 2022-09-21 15:24:00 Ynes, [facility] COMPREHENSIVE DRUG PANEL Medical Branch MAGNESIUM 2022-09-21 15:09:00 [place], [facility] VITAMIN B12, LEVEL 2022-09-21 15:09:00 [place], [facility] VITAMIN B12, LEVEL 2022-09-21 15:09:00 [place], [facility] VITAMIN B6, PLASMA 2022-09-21 15:09:00 [place], [facility] MAGNESIUM 2022-09-21 15:09:00 [place], [facility] CBC WITH DIFF 2022-09-21 15:09:00 [place], [facility] COMP. METABOLIC PANEL 2022-09-21 15:09:00 Ynes, [facility] ([id number]) [facility] VITAMIN B1 (THIAMINE), 2022-09-21 15:09:00 Ynes, [facility] WHOLE BLOOD [facility] LIPID PANEL ([id number])(TOTAL 2022-09-21 15:09:00 [place], [facility] CHOLESTEROL, [facility] TRIGLYCERIDES, HDL) IRON PANEL 2022-09-21 15:09:00 Ynes, [facility] THYROID STIMULATING 2022-09-21 15:09:00 [place], [facility] HORMONE [facility] FREE T4 2022-09-21 15:09:00 [place], [facility] N-TERMINAL PRO-BNP 2022-09-21 15:09:00 [place], [facility] COGNITIVE ASSESSMENT 2022-09-21 05:01:00 Doctor Unassigned, [facility] PAIN MANAGEMENT AGREEMENT 2022-09-21 05:01:00 [facility] & INFORMED CONSENT [facility] ADV BENEFICIARY NOTICE OF 2022-09-21 05:01:00 Doctor Unassigned, [facility] NONCOVERAGE (ABN) [place] [facility] COGNITIVE ASSESSMENT 2022-09-21 05:01:00 Doctor Unassigned, [facility] Name [facility] POCT HEMOGLOBIN TEST 2022-09-08 13:49:00 Xavier Saenz [facility] POCT HEMOGLOBIN TEST 2022-09-08 13:49:00 Xavier Saenz [facility] POCT PT/INR(COAGUCHEK) 2022-09-08 00:00:00 Rishabh Reid [facility] POCT PT/INR(COAGUCHEK) 2022-09-08 00:00:00 Rishabh Reid [facility] POCT PT/INR(COAGUCHEK) 2022-08-26 00:00:00 Rishabh Reid [facility] POCT PT/INR(COAGUCHEK) 2022-08-26 00:00:00 Rishabh Reid [facility] POCT HEMOGLOBIN TEST 2022-08-11 20:27:00 Xavier Saenz [facility] POCT HEMOGLOBIN TEST 2022-08-11 20:27:00 Xavier Saenz [facility] PROTEIN CREAT RATIO URINE 2022-08-06 15:55:[address] [facility] URINALYSIS 2022-08-06 15:54:00 Xavier [facility] BASIC METABOLIC PANEL (NA, 2022-08-06 15:25:[address] [facility] K, CL, CO2, GLUCOSE, BUN, [facility] [place] CREATININE, CA) PROTHROMBIN TIME / INR 2022-08-06 15:25:00 Jose [facility] CBC WITHOUT DIFF 2022-08-06 15:25:00 Xavier Saenz [facility] INTACT PTH CALCIUM GROUP 2022-08-06 15:25:00 Xavier Saenz [facility] MAGNESIUM 2022-08-06 15:25:00 [facility] PHOSPHORUS 2022-08-06 15:25:00 Jigna [facility] GLYCOSYLATED HEMOGLOBIN 2022-08-06 15:25:00 Xavier Saenz [facility] (A1C) [facility] POCT PT/INR(COAGUCHEK) 2022-08-03 00:00:00 [facility] POCT PT/INR(COAGUCHEK) 2022-08-03 00:00:00 [facility]abh Reid [facility] POCT HEMOGLOBIN TEST 2022-07-28 21:21:00 Xavier Saenz [facility] POCT HEMOGLOBIN TEST 2022-07-28 21:21:00 Jigna [facility] POCT HEMOGLOBIN TEST 2022-07-14 16:22:00 Xavier Saenz [facility] POCT HEMOGLOBIN TEST 2022-06-30 23:02:00 Xavier Saenz [facility] POCT PT/INR(COAGUCHEK) 2022-06-30 00:00:00 [facility]ishabh Reid [facility] POCT HEMOGLOBIN TEST 2022-06-18 17:42:00 Xochilt Florentino [facility] POCT PT/INR(COAGUCHEK) 2022-06-18 00:00:00 [facility]ishabh Reid [facility] POCT HEMOGLOBIN TEST 2022-06-05 17:15:00 Xavier Saenz [facility] POCT PT/INR(COAGUCHEK) 2022-06-05 00:00:00 [facility]ishabh Reid [facility] NERVE BLOCK 2022-05-21 15:17:12 Ben [facility] ARTERIOVENOUS FISTULA 2022-05-21 13:10:00 Denis Mazariegos [facility] AC PANEL 20 + LACTIC ACID 2022-05-21 12:53:00 Ben [facility] AC PANEL 20 + LACTIC ACID 2022-05-21 12:53:00 Ben [facility] HB ABO GROUPING 2022-05-21 12:52:00 Delilah [facility] HB ABO GROUPING 2022-05-21 12:52:00 Denis [facility] CBC WITH DIFF 2022-05-18 15:18:00 Delilah, Denis [facility] PROTHROMBIN TIME / INR 2022-05-18 15:18:00 Denis Mazariegos Unive [facility] ACTIVATED PARTIAL THRMPLAS 2022-05-18 15:18:00 [facility] WITH DIFF 2022-05-18 15:18:00 Delilah, Denis [facility] PROTHROMBIN TIME / INR 2022-05-18 15:18:00 Delilah, Denis Un[facility] ACTIVATED PARTIAL THRMPLAS 2022-05-18 15:18:00 Denis Mazariegos [facility] CONSENT/REFUSAL FOR 2022-05-18 14:53:56 Doctor Unassigned, [facility] DIAGNOSIS AND TREATMENT [place] [facility] POCT PT/INR(COAGUCHEK) 2022-05-18 00:00:00 [facility]ishabh Reid [facility] POCT HEMOGLOBIN TEST 2022-04-29 17:51:00 Xavier Saenz [facility] POCT PT/INR(COAGUCHEK) 2022-04-27 00:00:00 [facility]ishabh Reid [facility] POCT HEMOGLOBIN TEST 2022-04-15 16:53:00 Xochilt Florentino [facility] POCT PT/INR(COAGUCHEK) 2022-04-15 00:00:00 [facility]ishabh Reid [facility] POCT HEMOGLOBIN TEST 2022-03-31 18:23:00 Xavier Saenz [facility] POCT PT/INR(COAGUCHEK) 2022-03-31 15:42:00 [facility] URINALYSIS 2022-03-20 17:15:00 Jigna [facility] PROTEIN CREAT RATIO URINE 2022-03-20 17:15:00 Xavier [facility] PHOSPHORUS 2022-03-20 16:21:00 Xavier Saenz [facility] MAGNESIUM 2022-03-20 16:21:00 Xavier Saenz [facility] BASIC METABOLIC PANEL (NA, 2022-03-20 16:21:00 [facility] K, CL, CO2, GLUCOSE, BUN, Medica l [place] CREATININE, CA) CBC WITHOUT DIFF 2022-03-20 15:04:00 Jigna Xavier [facility] FLU 2022-03-17 14:51:03 Chadd Xochilt [facility] VACC(),65+YR,0.5 Medica l Branch ML,IM,ADJUVANTED,QUAD(FLUA D) POCT HEMOGLOBIN TEST 2022-03-17 14:46:00 Xavier Seanz [facility] SARS-COV-2 COVID-19 2022-03-09 19:41:05 Meg Dominique [facility] LEOLA-SUCROSE VACCINE 12 [facility] YRS+, BIVALENT 0.3ML, IM, (PFIZER GARCIA TOP BOOSTER) BASIC METABOLIC PANEL (NA, 2022-03-09 19:37:00 [facility], CL, CO2, GLUCOSE, BUN, [facility] CREATININE, [place]) DIGOXIN 2022-03-09 19:37:00 Kyleigh Dominique [facility] Encounters Start End Encounter Admission Attending Care Care Encounter Source Date/Time Date/Time Type Type Clinicians Facility Department ID 2022-10-13 [facility] Spears Boaz 1.2.840.0 [id number] [facility] 13:33:00 Encounter Maeve [place] 10400.1.1 ity 3.104.2.7 [place] .3.326009 Medica l .8 Branch 2021-06-20 Inpatient R DEXTER HU [facility] [id number] Univers 07:10:38 ity of [facility] 2021-04-20 Emergency [facility] [id number] Univers 14:34:01 ity of [facility] 2022-10-28 2022-10-28 Outpatient R YNES [facility] [id number] Univers 00:00:00 00:00:00 SEPTEMBER ity of [facility] 2022-10-15 2022-10-15 Outpatient R MAAN GANDHI [facility] 1 [id number] Univers 09:30:00 09:30:00 AMAN GANDHI ity [facility] 2022-10-14 2022-10-14 Refill , 1.2.840.2 [id number] Univers 00:00:00 00:00:00 Aman 30274.1.1 ity of 3.104.2.7 [place] .3.995442 Medica l .8 [place] 2022-10-13 2022-10-13 Outpatient R SEGUNDO [facility] [id number] Univers 14:20:00 14:20:00 RISHABH ity of [facility] 2022-10-13 2022-10-13 Inpatient T BOBBI [facility] [id number] Univers 13:33:00 13:33:00 MAEVE ity [facility] 2022-10-13 2022-10-13 Travel 1.2.840.1 [id number] [id number] Univers 00:00:00 00:00:00 56682.1.1 350.1.13.10 ity of 3.104.2.7 [place].698 [place] .3.700[place] 084.8 Medica l .8 [place] 2022-10-12 2022-10-12 Telephone Pham 1.2.840.2 [id number] Univers 00:00:00 00:00:00 Mostafa 44404.1.1 [place]y [place]2.7 [place] Moh[place] .3.617362 Medica l .8 [place] 2022-10-12 2022-10-12 Telephone Boaz Aguilar 1.2.840.0 [id number] Univers 00:00:00 00:00:00 87192.1.1 ity of 3.104.2.7 [place] .3.355952 Medica l .8 [place] 2022-10-12 2022-10-12 Refill Iturrizaga- 1.2.840.6 [id number] Univers 00:00:00 00:00:00 Verna, 30794.1.1 it y of Nitin 3.104.2.7 [place] .3.305878 Medica l .8 Branch 2022-10-08 2022-10-08 Transition Angeline, 1.2.840.1 [id number] Univers 00:00:00 00:00:00 of Care Hai Anglin 12004.1.1 it y of 3.104.2.7 [place] .3.811581 Medica l .8 [place] 2022-10-08 2022-10-08 Telephone Nurse, Pcp 1.2.840.5 [id number] Univers 00:00:00 00:00:00 Anticoag 28517.1.1 ity of 3.104.2.7 [place] .3.221132 Medica l .8 [place] 2022-09-29 2022-10-07 Inpatient U [facility] [id number] Univers 12:21:00 18:30:00 MOSTAFA ity of [facility] 2022-09-29 2022-10-07 [facility] Magdy Rose 1.2.840.1 [id number] Univers 12:21:00 18:30:00 Encounter Dianna Briceno 05495.1.1 ity of Cammy Moreland 3.104.2.7 [facility] Francisco Nazario .3. 240728 Medical .[address] [place] [address] 2022-10-07 2022-10-07 Outpatient Guillermo SAENZ [facility] [id number] Univers 14:00:00 14:00:00 XAVIER ity of [facility] 2022-10-02 2022-10-02 Surgery Ashlie, 1.2.840.1 [id number] Univers 07:25:00 09:25:00 Higinio 42688.1.1 ity of Salam 3.104.2.7 [place] .3.218786 Medica l .8 Branch 2022-09-29 2022-09-29 Outpatient R YNES, [facility] [id number] Univers 11:00:00 11:00:00 SEPTEMBER ity of [facility] 2022-09-29 2022-09-29 Orders Doctor 1.2.840.4 [id number] Univers 00:00:00 00:00:00 Only Unassigned, 54973.1.1 ity of [place] 3.104.2.7 [place] .3.013567 Medica l .8 Branch 2022-09-28 2022-09-28 Telephone Nyla- 1.2.840.8 [id number] Univers 00:00:00 00:00:00 Verna, 90725.1.1 it y of Nitin 3.104.2.7 [place] .3.401438 Medica l .8 Branch 2022-09-25 2022-09-25 Telephone Jigna, 1.2.840.7 [id number] Univers 00:00:00 00:00:00 Xavier 28584.1.1 ity of 3.104.2.7 [place] .3.660765 Medica l .8 Branch 2022-09-23 2022-09-23 Telephone Nyla- 1.2.840.5 [id number] Univers 00:00:00 00:00:00 Verna, 61743.1.1 it y of Nitin 3.104.2.7 [place] .3.128105 Medica l .8 Branch 2022-09-23 2022-09-23 Telephone Jigna, 1.2.840.9 [id number] Univers 00:00:00 00:00:00 Xavier 46630.1.1 ity of 3.104.2.7 [place] .3.452044 Medica l .8 Branch 2022-09-22 2022-09-22 Emergency X MOHSEN, [facility] ERT [id number] Univers 15:48:00 20:25:00 OLEG ity of [facility] 2022-09-22 2022-09-22 Emergency Kahe, 1.2.840.5 [id number] Univers 15:48:00 20:25:00 [place] 89261.1.1 i ty of 3.104.2.7 [place] .3.171614 Medica l .8 [place] 2022-09-22 2022-09-22 Telephone Ynes, 1.2.840.3 [id number] Univers 00:00:00 00:00:00 September 65507.1.1 ity of 3.104.2.7 [place] .3.072817 Medica l .8 [place] 2022-09-22 2022-09-22 Patient David, 1.2.840.0 [id number] Univers 00:00:00 00:00:00 Outreach Mary Kate Vargas 32074.1.1 ity of 3.104.2.7 [place] .3.857280 Medica l .8 [place] 2022-09-21 2022-09-21 Candy Catcher Ynes, September 19.2.840.1 [id number] Univers 10:00:00 10:15:00 Visit Vtc-Lab 98092.1.1 ity of 3.104.2.7 [place] .3.122718 Medica l .8 [place] 2022-09-21 2022-09-21 Outpatient R YNES [facility] [id number] Univers 08:00:00 09:41:47 FLOWER ity of [facility] 2022-09-21 2022-09-21 Office Ynes, 1.2.840.5 [id number] Univers 08:00:00 09:41:47 Visit September 58564.1.1 ity of 3.104.2.7 [place] .3.225046 Medica l .8 [place] 2022-09-21 2022-09-21 Telephone Ynes, 1.2.840.3 [id number] Univers 00:00:00 00:00:00 September 01183.1.1 ity of 3.104.2.7 [place] .3.915021 Medica l .8 [place] 2022-09-21 2022-09-21 Orders Doctor 1.2.840.4 [id number] Univers 00:00:00 00:00:00 Only Unassigned, 85967.1.1 ity of [place] 3.104.2.7 [place] .3.564574 Medica l .8 [place] 2022-09-21 2022-09-21 Travel 1.2.840.1 1.2.063.694 [id number] Univers 00:00:00 00:00:00 73789.1.1 350.1.13.10 ity of 3.104.2.7 4.[place].3.698 [place] .3.456967 084.8 Medica l .8 Branch 2022-09-16 2022-09-16 Telephone Jigna 1.2.840.3 [id number] Univers 00:00:00 00:00:00 Xavier 47668.1.1 ity of 3.104.2.7 [place] .3.554134 Medica l .8 Branch 2022-09-08 2022-09-08 Nurse Rishabh Reid 1.2.840.1 [id number] Univers 11:40:00 12:00:00 Visit Nurse, Pcp Anticoag 71873.1.1 ity of 3.104.2.7 [place] .3.889786 Medica l .8 Branch 2022-09-08 2022-09-08 Nurse Xavier Saenz 1.2.840.8 [id number] Univers 09:00:00 10:00:00 Visit Nurse, [facility] Nephrology 06629.1.1 ity of 3.104.2.7 [place] .3.199813 Medica l .8 Branch 2022-09-08 2022-09-08 Outpatient Guillermo SAENZ [facility] [id number] Univers 09:00:00 09:00:00 XAVIER ity of [facility] 2022-09-08 2022-09-08 Case Nurse, Pcp 1.2.840.5 [id number] Univers 00:00:00 00:00:00 Management Anticoag 27897.1.1 ity of 3.104.2.7 [place] .3.935997 Medica l .8 [place] 2022-09-08 2022-09-08 Travel 1.2.840.1 1.2.733.471 6663 [id number] Univers 00:00:00 00:00:00 71461.1.1 350.1.13.10 ity of 3.104.2.7 4.[place].7.3.698 [place] .3.923428 084.8 Medica l .8 [place] 2022-08-27 2022-08-27 [facility] [id number] Univers 11:40:00 11:40:00 THIERRY ity [facility] 2022-08-26 2022-08-26 Nurse Anabella Mcintyre 1.2.840.1 [id number] Univers 11:20:00 11:40:00 Visit Nurse, Pcp Anticostefan 98641.1.1 ity of 3.104.2.7 [place] .3.522913 Medica l .[address] [place] [address] 2022-08-26 2022-08-26 [facility] [id number] Univers 10:00:00 10:00:00 PENNY itjose [facility] 2022-08-26 2022-08-26 Outpatient [facility] [id number] Univers 10:00:00 10:00:00 PENNY ity [facility] 2022-08-26 2022-08-26 Office Francisco Javier 1.2.840.0 [id number] 903 Univers 09:00:00 09:30:00 Visit Anabella Naidu 54834.1.1 ity of 3.104.2.7 [place] .3.566916 Medica l .8 [place] 2022-08-26 2022-08-26 Outpatient [facility]ill[facility] [id number] [id number] Univers 09:00:00 09:00:00 ANABELLA ity [facility] 2022-08-26 2022-08-26 Case Nurse, Pcp 1.2.840.2 [id number] Univers 00:00:00 00:00:00 Management Anticoag 76990.1.1 ity of 3.104.2.7 [place] .3.942383 Medica l .8 [place] 2022-08-26 2022-08-26 Travel 1.2.840.1 1.2.013.552 6242 [id number] Univers 00:00:00 00:00:00 51528.1.1 350.1.13.10 ity of 3.104.2.7 4.[place].7.3.698 [place] .3.445956 084.8 Medica l .8 [place] 2022-08-11 2022-08-11 Outpatient Guillermo SAENZ [facility] [id number] [facility] 14:30:00 14:52:55 XAVIER marin [facility] 2022-08-11 2022-08-11 Office Jacob Saenz.2.840.7 [id number] 14427 920 [facility] 14:30:00 14:52:55 Visit Xavier 62111.1.1 ity of 3.104.2.7 [place] .3.684020 Medica l .8 [place] 2022-08-11 2022-08-11 Travel 1.2.840.1 1.2.382.973 9952 [id number] Univers 00:00:00 00:00:00 95935.1.1 350.1.13.10 ity of 3.104.2.7 4.2.7.3.698 [place] .3.807536 084.8 Medica l .8 [place] 2022-08-06 2022-08-06 Candy Catcher Xavier Saenz 1.2.840.1 [id number] 53 [id number] Univers 09:00:00 09:15:00 Visit Posonny, Kimberly Lab Main 91442.1.1 ity of 3.104.2.7 [place] .3.496751 Medica l .8 [place] 2022-08-06 2022-08-06 Outpatient Guillermo SANEZ [facility] [id number] Univers 09:00:00 09:00:00 XAVIER ity [facility] 2022-08-03 2022-08-03 Nurse Unknown, Attending 1.2.840.1 [id number] Univers 10:20:00 10:40:00 Visit Rishabh Reid 32723.1.1 ity of Nurse, Pcp Anticoag 3.104.2.7 [place] .3.683817 Medica l .8 [place] 2022-08-03 2022-08-03 Outpatient R SEGUNDO [facility] [id number] Univers 10:20:00 10:20:00 RISHABH ity of [facility] 2022-08-03 2022-08-03 Refill Iturrizaga- 1.2.840.4 [id number] 1 [id number] Univers 00:00:00 00:00:00 Verna 55666.1.1 it y of Mandeep Vargas 3.104.2.7 [place] .3.097900 Medica l .8 [place] 2022-08-03 2022-08-03 Travel 1.2.840.1 1.2.126.813 2438 [id number] Univers 00:00:00 00:00:00 79708.1.1 350.1.13.10 ity of 3.104.2.7 4.2.7.3.698 [place] .3.850021 084.8 Medica l .8 [place] 2022-07-30 2022-07-30 Telephone Nyla- 1.2.840.0 [id number] Univers 00:00:00 00:00:00 Verna 90890.1.1 it y of Mandeep Vargas 3.104.2.7 [place] .3.570590 Medica l .8 [place] 2022-07-30 2022-07-30 Case Nurse, Pcp 1.2.840.8 [id number] Univers 00:00:00 00:00:00 Management Anticoag 78971.1.1 ity of 3.104.2.7 [place] .3.520482 Medica l .8 [place] 2022-07-29 2022-07-29 Telephone Jigna 1.2.840.5 [id number] Univers 00:00:00 00:00:00 Xavier 62359.1.1 ity of 3.104.2.7 [place] .3.193681 Medica l .8 [place] 2022-07-28 2022-07-28 Nurse Xavier Saenz 1.2.840.6 [id number] Univers 10:00:00 11:00:00 Visit Nurse, [facility] Nephrology 25528.1.1 ity of 3.104.2.7 [place] .3.080245 Medica l .8 [place] 2022-07-28 2022-07-28 Outpatient [facility]ill[facility] [id number] Univers 10:00:00 10:00:00 XAVIER ity of [facility] 2022-07-28 2022-07-28 Travel 1.2.840.1 1.2.710.413 7591 75726 Univers 00:00:00 00:00:00 30306.1.1 350.1.13.10 ity of 3.104.2.7 4.[place].7.3.698 [place] .3.604205 084.8 Medica l .8 [place] 2022-07-24 2022-07-24 Refill Grisel, 1.2.840.1 [id number] Univers 00:00:00 00:00:00 Penny 58689.1.1 ity of Vini 3.104.2.7 [place] .3.238668 Medica l .8 [place] 2022-07-23 2022-07-23 Outpatient [facility]ill[facility] [id number] Univers 14:40:00 14:40:00 THIERRY ity of [facility] 2022-07-23 2022-07-23 Telephone Grisel, 1.2.840.2 [id number] Univers 00:00:00 00:00:00 Penny 73007.1.1 ity of Vini 3.104.2.7 [place] .3.840643 Medica l .8 [place] 2022-07-21 2022-07-21 Refill Grisel, 1.2.840.8 [id number] 0274 Univers 00:00:00 00:00:00 Penny 77356.1.1 ity of Vini 3.104.2.7 [place] .3.943731 Medica l .8 [place] 2022-07-18 2022-07-18 Milagro Recinos [facility] 1.2.840.114 [id number] Univers 00:00:00 00:00:00 Penny FORD 350.1.13.10 ity of [facility] [place] 850.8638034 [address] DIABETES [employer] 2022-07-15 2022-07-15 Nurse Williams PANDA 1.2.840.114 10 [id number] Univers 00:00:00 00:00:00 Sana Robertson 350.1.13.10 ity of [facility] 4.2.7.2.686 Derrick 792.7326404 [address] 2022-07-14 2022-07-14 Outpatient R BETO [facility] [id number] Univers 15:00:00 15:28:28 [facility] ity of [facility] 2022-07-14 2022-07-14 Nurse Nurse, [facility] Nephrology [facility] 1.2. 840.114 [id number] Univers 10:00:00 11:00:00 Visit Xavier Saenz MULTISPEC 350.1.13.10 [place] [id number] [address] [facility]ABETES [employer] 2022-07-02 2022-07-02 Telephone Jigna [facility] 1.2.733.320 6202 9812 Univers 00:00:00 00:00:00 Xavier MULTISPEC 350.1.13.10 ity of IALTY 4.2.7.2.686 [facility] [id number] [address] [facility]ES [facility]IN[facility] 2022-06-30 2022-06-30 Nurse Nurse, [facility] Nephrology [facility] 1.2. 840.114 [id number] Univers 15:00:00 15:32:37 Visit Rishabh ReidPEC 350.1.13.10 it[place].2.[place] 056.3847874 [facility] [address] [place] DIABETES [facility]INIC 2022-06-30 2022-06-30 Candy Catcher Vtc-Lab [facility] 1.2.840.114 [id number] [id number] Univers 13:00:00 13:15:00 Visit Xavier Saenz MULTISPEC 350.1.13.10 ity of IALTY 4.2.7.2.686 [facility] 551.1899957 [facility] [address] [place] DIABETES CLINIC 2022-06-30 2022-06-30 Outpatient Guillermo SAENZ, [facility] [id number] Univers 13:00:00 13:00:00 XAVIER ity [facility] 2022-06-30 2022-06-30 Nurse Nurse, Pcp Anticoag [facility] 1.2.84 0.114 [id number] Univers 11:20:00 11:40:00 Visit Rishabh Reid PRIMARY 350.1.13.10 [place] [id number] [address] 2022-06-29 2022-06-29 Case Nurse, Pcp [facility] 1.2.840.114 [id number] [id number] Univers 00:00:00 00:00:00 Management Anticoag PRIMARY 350.1.13.10 [place].2.[place] [id number] [address] 2022-06-25 2022-06-25 Outpatient Guillermo [facility] [id number] Univers 16:00:00 16:00:00 DENIS ity [facility] 2022-06-25 2022-06-25 Telephone Iturrizaga- UNIVERSIT 1.2.840.11 4 [id number] Univers 00:00:00 00:00:00 Verna TONO 350.1.13.10 ity of Mandeep Vargas CLINICS 4.2.7.2.[place] 841.7943568 [facility] [address] [place] 2022-06-25 2022-06-25 Telephone Grisel [facility] 1.2.413.045 4387 4630 Univers 00:00:00 00:00:00 Penny MULTISPEC 350.1.13.10 ity of [place] I[place] 4.2.[place].2.[place] [id number] [facility] AND REYNOLDS [address] DIABETES CLINIC 2022-06-23 2022-06-23 Outpatient R CLIF [facility] [id number] Univers 10:06:13 23:59:00 DENI ity of [facility] 2022-06-23 2022-06-23 Hospital KYLEIGH PhillipsIT 1.2.840.114 [id number] Univers 10:06:13 23:59:00 Encounter Deni [facility] Y HEALTH 350.1.13.10 ity of CLINICS 4.2.7.2.[place] 280.0661483 [facility] 8[address] 2022-06-23 2022-06-23 Telephone [facility] 1.2.840.11 4 [id number] Univers 00:00:00 00:00:00 [place], Y HEALTH 350.1.13.10 ity of Nitin CLINICS 4.2.7.2.[place] 787.3325418 [facility] [address] 2022-06-22 2022-06-22 [facility] [id number] Univers 13:00:00 13:33:50 tania GILLESPIE of [facility] [place] [facility] 2022-06-22 2022-06-22 Office Nyla WILLIE 1.2.840.114 [id number] Univers 13:00:00 13:33:50 Visit Verna PEDIATRIC 350.1.13.10 ity of [place]2.[place].2.[place] 543.7354500 [facility] PRIMARY [address] CARE CLINIC 2022-06-22 2022-06-22 Case KYLEIGH RecinosIT 1.2.398.955 1882 [id number] Univers 00:00:00 00:00:00 Management Maik Y HEALTH 350.1.13.10 ity of CLINICS 4.2.7.2.[place] [id number] [facility] 091 [address] 2022-06-22 2022-06-22 Case Jose UNIVERSIT 1.2.211.306 2611 9993 Univers 00:00:00 00:00:00 Management [facility] 350.1.13.10 ity of Jose D CLINICS 4.2.7.2.[place] 199.4178621 [facility] 8[address] 2022-06-21 2022-06-21 Refalicia Recinos [facility] 1.2.840.114 [id number] Univers 00:00:00 00:00:00 Penny MULTISPEC 350.1.13.10 ity of [facility] IALTY 4.2.7.2.[place] [id number] [facility] [address] [place] DIABETES CLINIC 2022-06-18 2022-06-18 Nurse Nurse, [facility] Nephrology [facility] 1.2. 840.114 [id number] Univers 15:00:00 16:00:00 Visit Rishabh Reid MULTISPEC 350.1.13.10 it[place] 4.2.[place].2.[place] [id number] [facility] [address] [place] DIABETES CLINIC 2022-06-18 2022-06-18 Outpatient R SEGNUDO [facility] [id number] Univers 15:00:00 15:00:00 RISHABH ity [facility] 2022-06-18 2022-06-18 Nurse Nurse, Pcp Cheryl [facility] 1.2.84 0.114 [id number] Univers 10:00:00 10:20:00 Visit Rishabh Reid PRIMARY 350.1.13.10 it[place] of C[place] 4.2.[place].2.[place] 852.0586993 Vt dicsaint alphonsus eagle4 [place] 2022-06-17 2022-06-17 Case Nurse, Pcp [facility] 1.2.840.114 [id number] Univers 00:00:00 00:00:00 Management Anticoag PRIMARY 350.1.13.10 ity [place] C[place] 4.2.7.2.[place] 488.9319760 Vt dical 054 [place] 2022-06-12 2022-06-12 Out[facility] [id number] Univers 08:40:00 08:40:00 THIERRY ity [facility] 2022-06-11 2022-06-11 Outpatient R KAREN [facility] [id number] Univers 07:44:14 23:59:00 THIERRY ity of [facility] 2022-06-05 2022-06-05 Nurse Nurse, Pcp Anticoag [facility] 1.2.84 0.114 [id number] Univers 10:00:00 10:20:00 Visit Rishabh Reid PRIMARY 350.1.13.10 [place] C[place] 4.2.[place].2.[place] [id number] Vt dic[address] 2022-06-05 2022-06-05 Nurse Nurse, [facility] Nephrology [facility] 1.2. 840.114 [id number] Univers 09:00:00 10:00:00 Visit Xavier Saenz MULTISPEC 350.1.13.10 [place] 4.2[place].2.[place] [id number] [address] DIABETES CLINIC 2022-06-05 2022-06-05 Outpatient [facility] [id number] Univers 09:00:00 09:00:00 XAVIER ity of [facility] 2022-06-04 2022-06-04 Outpatient [facility] [id number] Univers 14:15:00 14:11:14 DENIS ity of [facility] 2022-06-04 2022-06-04 Case Nurse, Pcp [facility] 1.2.840.114 [id number] Univers 00:00:00 00:00:00 Management Anticoag PRIMARY 350.1.13.10 [place] 4.2.7.2.[place] [id number] [address] 2022-06-02 2022-06-02 Outpatient R [facility] [id number] Univers 08:20:00 08:20:00 ity of [facility] 2022-06-02 2022-06-02 Milagro Recinos [facility] 1.2.840.114 [id number] Univers 00:00:00 00:00:00 Penny MULTISPEC 350.1.13.10 ity of [place] IALTY 4.2.[place].2.[place] 156.5836965 [facility] AND MAHWAH [address] DIABETES CLINIC 2022-05-21 2022-05-21 [facility] [id number] Univers 06:30:00 10:45:00 DENIS ity of [facility] 2022-05-21 2022-05-21 [facility] 1.2.840.114 [id number] Univers 06:30:00 10:45:00 Encounter Denis MCKOY 350.1.13.10 ity of [place] 4.2.7.2.[place] SURGICAL [id number] [facility] [address] 2022-05-21 2022-05-21 Surgery [facility] 1.2.840.114 [id number] Univers 07:10:00 10:21:00 Denis [place] 350.1.13.10 i ty of [place] 4.2.7.2.[place] [id number] [facility] [address] 2022-05-21 2022-05-21 Anesthesia Enrico Mejia [facility] 1.2.840.11 4 [id number] Univers 07:00:00 09:48:00 Event Oleg Contreras 35 0.1.13.10 ity of [place] 4.2.7.2.686 [place] [id number] [facility] [address] 2022-05-18 2022-05-18 Nurse Nurse, Pcp [facility] 1.2.84 0.114 [id number] Univers 11:00:00 11:20:00 Visit Rishabh Reid 350.1.13.10 ity of CARE 4.2.7.2.686 [place] 501.8084188 Vt dical [address] [place] 2022-05-18 2022-05-18 Outpatient Guillermo REID [facility] [id number] Univers 11:00:00 11:00:00 RISHABH marin [facility] 2022-05-18 2022-05-18 Candy Catcher Korey, Kimberly [employer] Main [facility] 1.2.8 40.114 [id number] Univers 09:15:00 09:30:00 Visit Penny Freed 350.1.13.10 ity of [place] 4.2.7.2.686 [place] 258.8914307 Vt dical NAL [address] BUILDING 2022-05-18 2022-05-18 Orders Doctor FARZAD 1.2.840.114 [id number] Univers 00:00:00 00:00:00 Only Unassigned, RUDI 350.1.13.10 ity of [place] [facility] 4.2.7.2.686 Derrick as 016.5432469 [facility] [address] 2022-05-18 2022-05-18 Telephone Jigna [facility] 1.2.130.500 [id number] 0407 Univers 00:00:00 00:00:00 Xavier MULTISPEC 350.1.13.10 ity of [place].2.7.2.686 [place] 407.7293464 [facility] AND MAHWAH [address] DIABETES CLINIC 2022-05-18 2022-05-18 Telephone [facility] 1.2.840.114 [id number] Univers 00:00:00 00:00:00 Verna, HEALTH 350.1.13.10 ity of Mandeep Vargas [place].2.7.2.686 [place] 158.7799925 [facility] MEDICAL [address] OFFICE BUILDING 2022-05-13 2022-05-13 Telephone [employer] [facility] 1.2.840.11 4 [id number] Univers 00:00:00 00:00:00 Verna HEALTH 350.1.13.10 ity of [place] CLINICS 4.2.7.2.[place] 706.0076366 [facility] [address] 2022-05-12 2022-05-12 Case Nurse, Pcp [facility] 1.2.840.114 [id number] Univers 00:00:00 00:00:00 Management Anticoag PRIMARY 350.1.13.10 ity of CARE 4.2.7.2.686 [place] 432.2412222 Vt dical [address] 2022-05-07 2022-05-07 Telephone [employer] [facility] 1.2.840.11 4 [id number] Univers 00:00:00 00:00:00 [place], Y HEALTH 350.1.13.10 ity of Nitin CLINICS 4.2.7.2.686 [place] 074.8283303 [facility] [address] 2022-05-06 2022-05-06 Refill Manav, UNIVERSIT 1.2.146.361 [id number] Univers 00:00:00 00:00:00 Nora Y HEALTH 350.1.13.10 i ty of CLINICS 4.2.7.2.[place] 092.4385788 [facility] [address] 2022-05-06 2022-05-06 Refill Christel TAPIA 1.2.840.114 [id number] Univers 00:00:00 00:00:00 [place], PEDIATRIC 350.1.13.10 ity of Nitin [place] 4.2.7.2.[place] 052.8069128 [facility] PRIMARY [address] CARE CLINIC 2022-05-05 2022-05-05 Outpatient R JIGNA [facility] [id number] Univers 14:00:00 14:55:20 XAVIER itjose of [facility] 2022-05-05 2022-05-05 Office Jigna [facility] 1.2.840.114 [id number] Univers 14:00:00 14:55:20 Visit Xavier FORD 350.1.13.10 ity of DANIEL 4.2.7.2.686 [facility] [id number] [address] DIABETES CLINIC 2022-04-29 2022-04-29 Nurse Nurse, [facility] Nephrology [facility] 1.2. 840.114 [id number] Univers 14:00:00 15:00:00 Visit Penny Recinos MULTISPEC 350.1. 13.10 ity of Xavier Saenz 4.2.7.2.686 [facility] [id number] [facility] AND [address] DIABETES CLINIC 2022-04-29 2022-04-29 Candy Catcher [facility]-Lab [facility] 1.2.840.114 [id number] Univers 13:45:00 14:00:00 Visit Penny Recinos MULTISPEC 350.1. 13.10 ity of Xavier Saenz IALTY 4.2.7.2.686 [facility] [id number] [facility] [address] [place] DIABETES CLINIC 2022-04-29 2022-04-29 Outpatient [facility] [id number] Univers 13:45:00 13:45:00 XAVIER ity [facility] 2022-04-27 2022-04-27 Nurse Nurse, Pcp Anticoag [facility] 1.2.84 0.114 [id number] Univers 14:00:00 14:20:00 Visit Reid, Rishabh Anglin PRIMARY 350.1.13.10 it[place] C[place] [id number] [address] 2022-04-27 2022-04-27 Outpatient [facility] [id number] Univers 14:00:00 14:00:00 RISHABH ity [facility] 2022-04-24 2022-04-24 [facility] 1.2.435.777 [id number] Univers 00:00:00 00:00:00 Xavier MULTISPEC 350.1.13.10 ity of IAL[place].2.7.2.[place] 590.0591214 [facility] [address] [place] DIABETES CLINIC 2022-04-23 2022-04-23 Case Nurse, Pcp [facility] 1.2.840.114 [id number] Univers 00:00:00 00:00:00 Management Anticoag PRIMARY 350.1.13.10 ity of C[place] 4[place]2.[place].2.[place] 429.9019562 [address] 2022-04-22 2022-04-22 Telephone CARMEN Potter 1.2.840.114 [id number] Univers 00:00:00 00:00:00 [facility] 350.1.13.10 ity of CLINICS 4.2.7.2.[place] 877.8705957 [facility] [address] 2022-04-19 2022-04-19 Refill CARMEN Potter 1.2.371.442 [id number] Univers 00:00:00 00:00:00 Dayanara Rosmery [facility] 350.1.13.10 ity of CLINICS 4.2.7.2.[place] 207.2869512 [facility] [address] 2022-04-15 2022-04-15 Outpatient R CHADD [facility] [id number] Univers 14:00:00 14:00:00 XOCHILT marin [facility] 2022-04-15 2022-04-15 Nurse Nurse, [facility] Nephrology [facility] 1.2. 840.114 [id number] Univers 14:00:00 14:00:00 Visit Xochilt Florentino MULTISPEC 350.1.13.1 0 ity of I[place] 4.2.7.2.[place] [id number] [facility] AND MAHWAH [address] DIABETES CLINIC 2022-04-15 2022-04-15 Nurse Nurse, Pcp Anticoag [facility] 1.2.84 0.114 [id number] Univers 10:40:00 11:00:00 Visit Rishabh Reid PRIMARY 350.1.13.10 ity of CARE 4.2.7.2.[place] [id number] Vt dical 0[address] [place] 2022-04-14 2022-04-14 Case Nurse, Pcp [facility] 1.2.840.114 [id number] Univers 00:00:00 00:00:00 Management Anticoag PRIMARY 350.1.13.10 [place] [id number] Vt dical 054 [place] 2022-04-09 2022-04-09 Outpatient R JIGNA [facility] [id number] Univers 13:15:00 13:15:00 XAVIER marin [facility] 2022-04-09 2022-04-09 Candy Catcher Korey, Kimberly Lab Main [facility] 1.2.8 40.114 [id number] Univers 12:15:00 12:30:00 Visit Xavier Saenz 350.1.13.10 [place] [id number] Vt dical NAL 353 [facility] 2022-04-07 2022-04-07 Telephone Jigna [facility] 1.2.504.439 [id number] Univers 00:00:00 00:00:00 Xavier MULTISPEC 350.1.13.10 [place] [id number] [address] [facility] 2022-04-06 2022-04-06 [id number] Univers 08:45:31 23:59:00 tania GILLESPIE [facility] 2022-04-06 2022-04-06 Telephone Nurse, Pcp [facility] 1.2.840.114 [id number] Univers 00:00:00 00:00:00 Anticoag PRIMARY 350.1.13.10 i [place] [id number] Vt dic[address] 2022-03-31 2022-03-31 Nurse Nurse, [facility] Nephrology [facility] 1.2. 840.114 [id number] Univers 14:00:00 14:00:00 Visit Rishabh Reid MULTISPEC 350.1.13.10 [place] [id number] [address] [facility] 2022-03-31 2022-03-31 Outpatient R SEGUNDO [facility] [id number] Univers 14:00:00 13:25:47 RISHABH ity [facility] 2022-03-31 2022-03-31 Nurse Nurse, Pcp Anticoag [facility] 1.2.84 0.114 [id number] Univers 10:40:00 11:00:00 Visit Rishabh Reid PRIMARY 350.1.13.10 [place] [id number] Vt dic[address] 2022-03-30 2022-03-30 Outpatient R GRISEL [facility] [id number] Univers 13:00:00 13:00:00 PENNY ity [facility] 2022-03-302022-03-30 Outpatient Guillermo RECINOS [facility] [id number] Univers 13:00:00 13:00:00 PENNY jose [facility] 2022-03-30 2022-03-30 Outpatient Guillermo RECINOS [facility] [id number] Univers 13:00:00 13:00:00 PENNY marin [facility] 2022-03-30 2022-03-30 Case Nurse, Pcp [facility] 1.2.840.114 [id number] Univers 00:00:00 00:00:00 Management Anticoag PRIMARY 350.1.13.10 [place] [id number] [address] 2022-03-27 2022-03-27 Nurse 2, Adc Infusion Chair [facility] 1.2. 840.114 [id number] Univers 10:30:00 13:00:00 Visit Xavier Saenz 350.1.13.10 [place] [id number] [facility] ica CENTER [address] [place] [address] 2022-03-27 2022-03-27 Outpatient [facility] [id number] Univers 10:30:00 10:30:00 XAVIER marin [facility] 2022-03-25 2022-03-25 [facility] 1.2.840.114 [id number] Univers 00:00:00 00:00:00 Xavier RUBIOPEC 350.1.13.10 [place] [id number] [address] [facility] 2022-03-24 2022-03-24 Office Jigna [facility] 1.2.840.114 [id number] Univers 11:00:00 11:30:00 Visit Xavier FORD 350.1.13.10 [place] [id number] [address] DIABETES CLINIC 2022-03-24 2022-03-24 Outpatient Guillermo SAENZ [facility] [id number] Univers 11:00:00 11:00:00 XAVIER tania [facility] 2022-03-24 2022-03-24 Outpatient R JIGNA [facility] [id number] Univers 11:00:00 11:00:00 XAVIERDerrek marin [facility] 2022-03-24 2022-03-24 Outpatient Guillermo SMILEYSANTIAGO [facility] [id number] Univers 11:00:00 11:00:00 XAVIER tania [facility] 2022-03-20 2022-03-20 Outpatient Guillermo JONES [facility] [id number] Univers 08:18:03 23:59:00 THIERRY ity [facility] 2022-03-20 2022-03-20 Nurse 2, Adc Infusion Chair [facility] 1.2. 840.114 [id number] Univers 09:15:00 11:45:00 Visit Xavier Saenz 350.1.13.10 ity of [place] [id number] [address] 2022-03-20 2022-03-20 Outpatient Guillermo JONES [facility] [id number] Univers 08:40:00 08:40:00 THIERRY itjose [facility] 2022-03-17 2022-03-17 Nurse Nurse, [facility] Nephrology [facility] 1.2. 840.114 [id number] Univers 10:00:00 10:02:18 Visit Xavier Saenz 350.1.13.10 ity of [facility] 4.2.7.2.686 [facility] [id number] [address] DIABETES CLINIC 2022-03-17 2022-03-17 Outpatient Guillermo JIGNA [facility] [id number] Univers 10:00:00 10:00:00 XAVIER marin [facility] 2022-03-13 2022-03-13 Nurse 2, Adc Infusion Chair [facility] 1.2. 840.114 [id number] Univers 09:00:00 11:30:00 Visit Xavier Saenz 350.1.13.10 it[place] of [place] [id number] [facility] CENTER [address] 2022-03-13 2022-03-13 Outpatient R JIGNA [facility] [id number] Univers 09:00:00 09:00:00 XAVIER marin [facility] 2022-03-13 2022-03-13 Outpatient R JIGNA [facility] [id number] Univers 09:00:00 09:00:00 XAVIER marin [facility] 2022-03-13 2022-03-13 Telephone [facility] 1.2.146.561 [id number] Univers 00:00:00 00:00:00 Xavier MULTISPEC 350.1.13.10 ity of [facility] [place].2.[place] [id number] [facility] AND [address] DIABETES CLINIC 2022-03-11 2022-03-11 Outpatient Guillermo ABBEY [facility] [id number] Univers 14:20:00 14:20:00 DAYANARA marin [facility] 2022-03-10 2022-03-10 Telephone Nyla CARMEN 1.2.840.11 [id number] Univers 00:00:00 00:00:00 Verna TONO 350.1.13.10 ity of [facility] 4.2.7.2.686 [facility] [id number] [facility] [address] 2022-03-09 2022-03-09 [facility] [id number] Univers 14:00:00 14:19:46 tania GILLESPIE of [facility] 2022-03-09 2022-03-09 Office Nyla- WILLIE 1.2.840.114 [id number] Univers 14:00:00 14:19:46 Visit Verna PEDIATRIC 350.1.13.10 ity of [facility] S [place] [id number] [facility] PRIMARY [address] CARE CLINIC 2022-03-06 2022-03-06 Nurse 2, Adc Infusion Chair [facility] 1.2. 840.114 [id number] Univers 08:00:00 10:30:00 Visit Xavier Saenz 350.1.13.10 ity of [place].2.7.2.[place] [id number] [facility] CENTER [address] 2022-03-06 2022-03-06 Outpatient R [facility] [id number] Univers 08:00:00 08:00:00 ity of [facility] 2022-03-06 2022-03-06 Outpatient R JIGNA [facility] [id number] Univers 08:00:00 08:00:00 XAVIER ity of [facility] 2022-03-04 2022-03-04 Office CARMEN Jones 1.2.470.087 [id number] Univers 09:00:00 09:15:00 Visit [facility] 350.1.13.10 i ty of CLINICS 4.2.7.2.[place] [id number] [facility] [address] 2022-03-04 2022-03-04 Outpatient R KAREN [facility] [id number] Univers 09:00:00 09:00:00 THIERRY ity of [facility] 2022-03-04 2022-03-04 Outpatient R KAREN [facility] [id number] Univers 09:00:00 09:00:00 THIERRY ity [facility] 2022-03-03 2022-03-03 Nurse Nurse, Pcp Anticoag [facility] 1.2.84 0.114 [id number] Univers 10:40:00 11:00:00 Visit Rishabh Reid 350.1.13.10 ity of C[place] 4.2.[place].2.[place]ILL[place] [id number] Vt dical [address] 2022-03-03 2022-03-03 Nurse Nurse, [facility] Nephrology [facility] 1.2. 840.114 [id number] Univers 10:00:00 11:00:00 Visit Xavier Saenz 350.1.13.10 ity of [place] 4.2.[place].2.686 [place] CENTER [id number] [facility] AND MAHWAH [address] DIABETES CLINIC 2022-03-03 2022-03-03 Outpatient [facility] [id number] Univers 10:40:00 10:40:00 RISHABH ity of [facility] 2022-03-03 2022-03-03 Outpatient R [facility] [id number] Univers 10:00:00 10:00:00 ity of [facility] 2022-03-03 2022-03-03 Case Nurse, Pcp [facility] 1.2.840.114 [id number] Univers 00:00:00 00:00:00 Management Anticoag PRIMARY 350.1.13.10 ity of [facility] 4.2.7.2.686 [place] [facility] [id number] Vt dical [address] [place] [address] 2022-03-02 2022-03-02 [facility] [id number] Univers 13:30:00 13:30:00 VERNA ity [facility] 2022-02-26 2022-02-26 Candy Catcher Vtc-Lab [facility] 1.2.840.114 [id number] Univers 11:30:00 11:45:00 Visit Penny Recinos [facility] 350.1. 13.10 ity of [facility] 4.2.7.2.686 [facility] [id number] [facility] WANG REYNOLDS [address] [place] DIABETES CLINIC 2022-02-26 2022-02-26 Outpatient R GRISEL [facility] [id number] Univers 10:20:00 10:38:58 PENNY jose [facility] 2022-02-26 2022-02-26 Office Grisel [facility] 1.2.840.114 [id number] Univers 10:20:00 10:38:58 Visit Penny FORD 350.1.13.10 [facility] 4.2.7.2.686 [facility] s GARDEN [id number] [facility] WANG REYNOLDS [address] [place] DIABETES CLINIC 2022-02-20 2022-02-20 Outpatient R KAREN [facility] [id number] Univers 10:30:02 23:59:00 THIERRY ity [facility] 2022-02-20 2022-02-20 Candy Catcher 1, Adc Lab [facility] 1.2.840.114 [id number] Univers 10:00:00 10:15:00 Visit Xochilt Florentino 350.1.13.10 ity of [place] 4.2.7.2.686 [facility] [id number] [facility] [address] 2022-02-20 2022-02-20 Outpatient R [facility] [id number] Univers 10:00:00 10:00:00 ity of [facility] 2022-02-18 2022-02-18 Nurse Nurse, Pcp Anticoag [facility] 1.2.84 0.114 [id number] Univers 10:00:00 10:20:00 Visit Rishabh Reid PRIMARY 350.1.13.10 ity of CARE 4.2.7.2.686 [facility] PAVILLION [id number] Vt dical [address] [place] [address] 2022-02-18 2022-02-18 Outpatient [facility] [id number] Univers 10:00:00 10:00:00 RISHABH ity of [facility] 2022-02-17 2022-02-17 Nurse Nurse, [facility] Nephrology [facility] 1.2. 840.114 [id number] Univers 10:00:00 10:13:59 Visit Xochilt Florentino MULTISPEC 350.1.13.1 0 ity of IALTY 4.2.7.2.686 [facility] [id number] [facility] AND MAHWAH [address] DIABETES CLINIC 2022-02-17 2022-02-17 Outpatient [facility] [id number] Univers 10:00:00 10:00:00 XOCHILT ity [facility] 2022-02-17 2022-02-17 Case Nurse, Pcp [facility] 1.2.840.114 [id number] Univers 00:00:00 00:00:00 Management Anticoag PRIMARY 350.1.13.10 it[place] [id number] Vt dical [address] [place] 2022-02-16 2022-02-16 Telephone Karen [facility] 1.2.277.243 [id number] Univers 00:00:00 00:00:00 Thierry HEALTH 350.1.13.10 it y of [place]AR 4.2.7.2.686 [facility] s GALVEZ [id number] [address] OFFICE BUILDING 2022-02-09 2022-02-09 Nurse Nurse, [facility] 1.2.84 0.114 [id number] Univers 15:00:00 15:20:00 Visit Rishabh Reid PRIMARY 350.1.13.10 it[place] [id number] [address] 2022-02-09 2022-02-09 Outpatient R REID [facility] [id number] Univers 15:00:00 15:00:00 RISHABH ity of [facility] 2022-02-09 2022-02-09 Refill Italin- WILLIE 1.2.840.114 [id number] Univers 00:00:00 00:00:00 Verna, PEDIATRIC 350.1.13.10 ity of [place] [id number] [address] 2022-02-05 2022-02-06 Outpatient R KENNEDY [facility] [id number] Univers 06:37:00 12:39:00 KOREY ity [facility] 2022-02-05 2022-02-06 [facility] Thierry Jones 1.2.840.114 [id number] Univers 06:37:00 12:39:00 Encounter [facility] 350. 1.13.10 ity of [facility] 4.2.7.2.686 Derrick as [id number] [address] 2022-02-06 2022-02-06 Refill Itysabelaga- WILLIE 1.2.840.114 [id number] Univers 00:00:00 00:00:00 Verna, PEDIATRIC 350.1.13.10 ity of [place] [id number] [place] [address] [address] [facility] 2022-02-05 2022-02-05 Surgery MARIO Jones 1.2.840.114 [id number] Univers 08:05:00 09:05:00 Thierry RUDI 350.1.13.10 it y of HOSPITAL 4.2.7.2.686 Derrick as [id number] [facility] [address] 2022-02-03 2022-02-03 Outpatient R JIGNA [facility] [id number] Univers 14:00:00 14:00:00 XAVIER ity of [facility] 2022-02-03 2022-02-03 Nurse Nurse, [facility] Nephrology [facility] 1.2. 840.114 [id number] Univers 14:00:00 14:00:00 Visit Xavier Saenz MULTISPEC 350.1.13.10 ity of [facility] 4.2.7.2.686 [facility] [id number] [facility] AND MAHWAH [address] DIABETES CLINIC 2022-02-03 2022-02-03 Candy Catcher 1, Adc Lab [facility] 1.2.840.114 [id number] Univers 10:45:00 11:00:00 Visit Thierry Jones 350.1.13.10 ity of [place] 4.2.7.2.686 [facility] [id number] [facility] [address] 2022-02-03 2022-02-03 Outpatient R KAREN [facility] [id number] Univers 10:45:00 10:45:00 THIERRY ity of [facility] 2022-02-03 2022-02-03 Laboratory Only, Adc Test [facility] 1.2.840. 114 [id number] Univers 10:30:00 10:45:00 Only Thierry Jones 350.1.13.10 ity of [place] 4.2.7.2.686 [facility] [id number] [facility] [address] 2022-02-02 2022-02-02 Orders Doctor PANDA 1.2.840.114 [id number] Univers 00:00:00 00:00:00 Only Unassigned, RUDI 350.1.13.10 ity of [facility] 4.2.7.2.686 Derrick as [id number] [facility] [address] 2022-01-30 2022-01-30 Nurse Nurse, Pcp Anticoag [facility] 1.2.84 0.114 [id number] Univers 10:00:00 10:20:00 Visit Rishabh Reid A PRIMARY 350.1.13.10 it[place] [id number] [address] 2022-01-30 2022-01-30 Outpatient Guillermo REID [facility] [id number] Univers 10:00:00 10:00:00 RISHABH ity [facility] 2022-01-30 2022-01-30 Case Nurse, Pcp [facility] 1.2.840.114 [id number] Univers 00:00:00 00:00:00 Management Anticoag PRIMARY 350.1.13.10 it[place] [id number] [address] 2022-01-23 2022-01-23 Telephone Grisel [facility] 1.2.906.887 [id number] Univers 00:00:00 00:00:00 Penny RUBIOPEC 350.1.13.10 ity of [place] IALTY 4.2.7.2.686 [facility] [id number] [facility] [address] [place] DIABETES CLINIC 2022-01-22 2022-01-22 Outpatient Guillermo SAENZ [facility] [id number] Univers 15:00:00 15:00:00 XAVIER itjose [facility] 2022-01-22 2022-01-22 Outpatient Guillermo SAENZ [facility] [id number] Univers 15:00:00 15:00:00 XAVIER itjose [facility] 2022-01-22 2022-01-22 Outpatient Guillermo SAENZ [facility] [id number] Univers 15:00:00 15:00:00 XAVIER itjose [facility] 2022-01-22 2022-01-22 Nurse Nurse, [facility] Nephrology [facility] 1.2. 840.114 [id number] Univers 15:00:00 15:00:00 Visit Xavier SaenzPEC 350.1.13.10 ity of [place] C[place] [id number] [facility] [address] [place] DIABETES CLINIC 2022-01-21 2022-01-21 Outpatient R KAREN [facility] [id number] Univers 10:30:00 10:30:00 THIERRY ity of [facility] 2022-01-21 2022-01-21 Milargo Recinos [facility] 1.2.840.114 [id number] Univers 00:00:00 00:00:00 Penny JOANNEPEC 350.1.13.10 ity of [place] I[place].2.686 [place] [id number] [facility] [address] [place] DIABETES CLINIC 2022-01-19 2022-01-19 Nurse Nurse, Pcp Cheryl [facility] 1.2.84 0.114 [id number] Univers 11:40:00 12:00:00 Visit Rishabh Reid PRIMARY 350.1.13.10 ity of C[place].2.7.2.686 [place] [id number] [address] 2022-01-19 2022-01-19 Outpatient Guillermo REID [facility] [id number] Univers 11:40:00 11:40:00 RISHABH ity of [facility] 2022-01-19 2022-01-19 Case Nurse, Pcp [facility] 1.2.840.114 [id number] Univers 00:00:00 00:00:00 Management Anticoag PRIMARY 350.1.13.10 ity of [place] 4[place].2.686 [place] [id number] [address] 2022-01-15 2022-01-15 Telephone MARIO Jones 1.2.823.011 [id number] Univers 00:00:00 00:00:00 Thierry RUDI 350.1.13.10 it y of HOSPITAL 4.2.7.2.686 Derrick as [id number] [facility] [address] [place] 2022-01-09 2022-01-09 Nurse Nurse, [facility] 1.2.84 0.114 [id number] Univers 10:40:00 11:11:21 Visit Rishabh Reid PRIMARY 350.1.13.10 ity of [place] [id number] Vt sumaya Olson [place] 2022-01-09 2022-01-09 Outpatient [facility]ill[facility] [id number] Univers 10:40:00 10:40:00 [facility] 2022-01-06 2022-01-06 Case Nurse, Pcp [facility] 1.2.840.114 [id number] Univers 00:00:00 00:00:00 Management Anticoag PRIMARY 350.1.13.10 it[place] [id number] [address] 2022-01-02 2022-01-02 Nurse Nurse, Pcp Anticoag [facility] 1.2.84 0.114 [id number] Univers 10:40:00 11:00:00 Visit Segundo Rishabh A PRIMARY 350.1.13.10 ity of [place] [id number] [address] 2022-01-02 2022-01-02 Outpatient Guillermo [facility] [id number] Univers 10:40:00 10:40:00 RISHABH [facility] 2022-01-02 2022-01-02 Case Nurse, Pcp [facility] 1.2.840.114 [id number] Univers 00:00:00 00:00:00 Management Anticoag PRIMARY 350.1.13.10 it[place] [id number] [facility] [address] [place] [address] 2021-12-24 2021-12-24 Nurse Nurse, Pcp Anticoag [facility] 1.2.84 0.114 [id number] Univers 13:00:00 14:00:00 Visit Rishabh Reid A PRIMARY 350.1.13.10 ity of [place] [id number] [facility] [address] [place] [address] 2021-12-24 2021-12-24 Outpatient Guillermo [facility] [id number] Univers 13:00:00 13:00:00 RISHABH marin [facility] 2021-12-24 2021-12-24 Outpatient R SEGUNDO [facility] [id number] Univers 13:00:00 13:00:00 RISHABH ity of [facility] 2021-12-23 2021-12-23 Outpatient R KAREN [facility] [id number] Univers 13:30:00 14:00:37 THIERRY ity of [facility] 2021-12-23 2021-12-23 Office Karen [facility] 1.2.840.114 [id number] Univers 13:30:00 14:00:37 Visit Thierry HEALTH 350.1.13.10 it y of [place] [id number] [place] [id number] [place] OFFICE BUILDING 2021-12-23 2021-12-23 Outpatient R KAREN [facility] [id number] Univers 13:30:00 14:00:37 THIERRY ity of [facility] 2021-12-23 2021-12-23 Outpatient R FRANCEFABI [facility] [id number] Univers 13:30:00 13:30:00 THIERRY ity [facility] 2021-12-23 2021-12-23 Office Jigna [facility] 1.2.840.114 [id number] Univers 10:30:00 11:30:06 Visit Xavier MULTISPEC 350.1.13.10 ity of [place].686 [place] [id number] [facility] AND MAHWAH [address] DIABETES CLINIC 2021-12-23 2021-12-23 Outpatient Guillermo SAENZ [facility] [id number] Univers 10:30:00 11:30:06 XAVIER ity of [facility] 2021-12-23 2021-12-23 Telephone Iturrizaga- UNIVERSIT 1.2.840.11 [id number] Univers 00:00:00 00:00:00 Jose Glilespie HEALTH 350.1.13.10 ity of [place] CLINICS 4.2.7.2.686 [place] [id number] [place] [address] [address] 2021-12-20 2021-12-20 Milagro Mcintyre [facility] 1.2.840.114 [id number] Univers 00:00:00 00:00:00 Anabella Naidu MULTISPEC 350.1.13.10 ity of [place].2.7.2.686 [place] CENTER [id number] [facility] AND MAHWAH [address] [place] DIABETES CLINIC 2021-12-19 2021-12-19 Candy Catcher Kimberly Nair Lab Main [facility] 1.2.8 40.114 [id number] Univers 11:00:00 11:15:00 Visit Xavier Saenz 350.1.13.10 ity of [place].2.686 [place] [id number] Vt dical NAL 353 [facility] 2021-12-19 2021-12-19 Outpatient Guillermo SAENZ [facility] [id number] Univers 11:00:00 11:00:00 XAVIER marin [facility] 2021-12-19 2021-12-19 Outpatient Guillermo SAENZ [facility] [id number] Univers 11:00:00 11:00:00 [facility]IER [facility] 2021-12-17 2021-12-17 [facility]icia [facility] 1.2.840.114 [id number] Univers 00:00:00 00:00:00 Penny RUBIOPEC 350.1.13.10 ity of [place] 4.2.7.2.686 [place] CENTER [id number] [facility] [address] [place] DIABETES CLINIC 2021-12-17 2021-12-17 Telephone Nurse, Pcp [facility] 1.2.840.114 [id number] Univers 00:00:00 00:00:00 Anticoag PRIMARY 350.1.13.10 i ty of C[place] 4.2.7.2.[place] PAV[place] [id number] Vt dical [address] 2021-12-16 2021-12-16 Telephone Iturrizaga- UNIVERSIT 1.2.840.11 4 [id number] Univers 00:00:00 00:00:00 Verna, HEALTH 350.1.13.10 ity of Mandeep [place] 4.2.7.2.686 [place] [id number] [facility] [address] 2021-12-11 2021-12-11 Telephone Jigna [facility] 1.2.987.859 [id number] Univers 00:00:00 00:00:00 Xavier FORD 350.1.13.10 ity of [place].686 [place] CENTER [id number] [facility] [address] [place] DIABETES CLINIC 2021-12-08 2021-12-08 Out[facility] [id number] Univers 13:50:45 23:59:00 tania GILLESPIE [facility] 2021-12-02 2021-12-02 Orders Doctor FARZAD 1.2.840.114 [id number] Univers 00:00:00 00:00:00 Only UnassignedRUDI 350.1.13.10 ity of [facility] 4.2.7.2.686 Derrick as [id number] [facility] [address] 2021-11-28 2021-11-28 Letter MARIO Recinos 1.2.840.114 [id number] Univers 00:00:00 00:00:00 (Out) Penny GRIJALVA 350.1.13.10 it y of [facility] 4.2.7.2.686 Derrick as [id number] [facility] [address] 2021-11-24 2021-11-24 Outpatient R GENNA [facility] [id number] Univers 13:45:00 13:45:00 CHAPARRO marin [facility] 2021-11-19 2021-11-19 [facility]phone [facility] 1.2.508.565 [id number] Univers 00:00:00 00:00:00 Penny FORD 350.1.13.10 ity of [facility] 4.2.7.2.[place] C[place] [id number] [facility] [address] [place] DIABETES CLINIC 2021-11-14 2021-11-14 Outpatient [facility] [id number] Univers 14:00:00 14:26:06 tania GILLESPIE [facility] 2021-11-14 2021-11-14 Office Christel TAPIA 1.2.840.114 [id number] Univers 14:00:00 14:26:06 Visit Verna, PEDIATRIC 350.1.13.10 ity of [place] [id number] [facility] PRIMARY [address] [facility] [employer] [facility] 2021-11-14 2021-11-14 [facility] [id number] [facility] 14:00:00 14:26:06 VERNA ity of MANDEEP [facility] 2021-11-14 2021-11-14 Refill [facility] 1.2.840.114 [id number] Univers 00:00:00 00:00:00 Penny JOANNEPEC 350.1.13.10 ity of [place] I[place].2.[place].2.686 [place] [id number] [address] DIABETES CLINIC 2021-11-12 2021-11-12 Candy Catcher [facility]-Lab [facility] 1..840.114 [id number] Univers 10:00:00 10:15:00 Visit Anabella Mcintyre MULTISPEC 350.1.13.10 [place] [phone] [facility] [address] [facility] 2021-11-12 2021-11-12 Outpatient R [facility] [id number] Univers 09:00:00 09:47:10 ANABELLA marin [facility] 2021-11-12 2021-11-12 Office [facility] 1..840.114 [id number] Univers 09:00:00 09:47:10 Visit Anabella RUBIOPEC 350.1.13.10 [place] [id number] [address] [facility] 2021-11-12 2021-11-12 Outpatient [facility] [id number] Univers 09:00:00 09:47:10 ANABELLA marin [facility] 2021-11-12 2021-11-12 Telephone [facility] 1..460.226 [id number] Univers 00:00:00 00:00:00 Anabella Naidu MULTISPEC 350.1.13.10 [place] [phone] [facility] AND [address] DI[facility]ETES [facility]INIC 2021-11-10 2021-11-10 Telephone Christel WILLIE 1.2.840.114 [id number] Univers 00:00:00 00:00:00 Verna, PEDIATRIC 350.1.13.10 ity [place] [id number] [facility] PRIMARY [address] CARE CLINIC 2021-11-10 2021-11-10 Orders Doctor FARZAD 1.2.840.114 [id number] Univers 00:00:00 00:00:00 Only Unassigned, RUDI 350.1.13.10 ity of [place] [facility] 4.2.7.2.686 Derrick as [phone] [place] [address] [place] 2021-11-07 2021-11-07 Refill [facility] 1.2.840.114 [id number] Univers 00:00:00 00:00:00 Verna [facility] 350.1.13.10 ity of Mandeep Varg[place] [id number] [facility] [address] OFFICE BUILDING 2021-11-04 2021-11-04 Telephone [facility] 1.2.586.168 [id number] Univers 00:00:00 00:00:00 Anabella Naidu MULTISPEC 350.1.13.10 [place] [phone] [facility] AND [address] [facility]ETES [facility]IC 2021-11-04 2021-11-04 [facility]phone [facility] 1.2.087.225 [id number] Univers 00:00:00 00:00:00 Penny MULTISPEC 350.1.13.10 [place] [id number] [facility] AND [address] DI[facility]ETES [facility] 2021-11-03 2021-11-03 Office CARMEN Saenz 1.2.115.156 [id number] Univers 13:00:00 13:30:00 Visit [facility] 350.1.13.10 i [place] [id number] [facility] [address] 2021-11-03 2021-11-03 Outpatient [facility] [id number] 210 Univers 13:00:00 13:00:00 XAVIER ity [facility] 2021-11-03 2021-11-03 Outpatient R [facility] [id number] Univers 13:00:00 13:00:00 [facility] 2021-11-03 2021-11-03 Outpatient R [facility] [id number] Univers 13:00:00 13:00:00 [facility] 2021-11-03 2021-11-03 Transition ARLETTE Marcus 1.2.840.114 [id number] Univers 00:00:00 00:00:00 of Care Hai RENEE 350.1.13.10 [place] [phone] [facility] [address] 2021-10-29 2021-10-31 Inpatient X [facility] [id number] Univers 14:01:00 17:07:00 PENNY [facility] 2021-10-29 2021-10-31 Hospital Oma Caldwell 1.2.840 .114 [id number] Univers 14:01:00 17:07:00 Encounter Rusty Tyler 350.1.13. 10 ity of [facility] 4.2.7.2.[address] [place] [address] [phone] [facility] 094 Branch 2021-10-29 2021-10-29 Office [facility] 1.2.840.114 [id number] Univers 12:30:00 13:00:00 Visit Anabella Naidu MULTISPEC 350.1.13.10 it[place] [phone] [address] DIABETES CLINIC 2021-10-29 2021-10-29 Outpatient R FRANCISCO JAVIER [facility] [id number] Univers 12:30:00 12:30:00 ANABELLA jose [facility] 2021-10-29 2021-10-29 Outpatient R FRANCISCO JAVIER [facility] [id number] Univers 12:30:00 12:30:00 ANABELLA jose [facility] 2021-10-29 2021-10-29 Outpatient R FRANCISCO JAVIER [facility] ERT [id number] Univers 12:30:00 12:30:00 ANABELLA jose [facility] 2021-10-29 2021-10-29 Outpatient R FRANCISCO JAVIER [facility] [id number] Univers 12:30:00 12:30:00 [facility] 2021-10-28 2021-10-28 Outpatient R JUVENTINO [facility] [id number] Univers 16:30:00 17:53:26 DENI [facility] 2021-10-28 2021-10-28 Office [facility] 1.2.840.114 [id number] Univers 16:30:00 17:53:26 Visit Deni A HEALTH 350.1.13.10 it y of [place] [phone] [facility] [address] OFFICE BUILDING 2021-10-28 2021-10-28 [facility] 1.2.840.114 [id number] Univers 00:00:00 00:00:00 Verna, HEALTH 350.1.13.10 ity of [place] [id number] [facility] [address] OFFICE BUILDING 2021-10-27 2021-10-27 Telephone CARMEN Saenz 1.2.840.114 [id number] Univers 00:00:00 00:00:00 Xavier Y HEALTH 350.1.13.10 i ty of CLINICS [place] [phone] [place] [address] Branch 2021-10-27 2021-10-27 Telephone [facility] 1.2.289.793 [id number] Univers 00:00:00 00:00:00 Penny MULTISPEC 350.1.13.10 ity of [place].2.[place] [phone] [facility] [address] DIABETES CLINIC 2021-10-22 2021-10-22 Transition ARLETTE Valdez 1.2.840.114 [id number] Univers 00:00:00 00:00:00 of Care Ashanti RENEE 350.1.13.10 it y [place] [phone] [facility] [address] 2021-10-22 2021-10-22 Telephone JENNIFER Hung 1.2.840.114 [id number] Univers 00:00:00 00:00:00 Callie Keaton MULTISPEC 350.1.13.10 it[place] [phone] [address] DIABETES CLINIC 2021-10-22 2021-10-22 Orders Doctor FARZAD 1.2.840.114 [id number] Univers 00:00:00 00:00:00 Only Unassigned, RUDI 350.1.13.10 ity of [facility] 4.2.7.2.686 Derrick as [phone] [facility] [address]9 [address] 2021-10-19 2021-10-21 Hospital Herbert Hungschuyler MARTIN 1.2.840.11 [id number] Univers 11:34:00 17:41:00 Encounter Penny Recinos 350.1. 13.10 ity of [facility] 4.2.7.2.686 Derrick as [phone] [facility] 0[address] 2021-10-20 2021-10-20 Telephone CARMEN Saenz 1.2.840.114 [id number] Univers 00:00:00 00:00:00 Xavier Y HEALTH 350.1.13.10 i ty of CLINICS 4.[place] [phone] [facility] [address] 2021-10-20 2021-10-20 Telephone Christel TAPIA 1.2.840.114 [id number] Univers 00:00:00 00:00:00 [place], PEDIATRIC 350.1.13.10 ity of [place] [phone] [facility] PRIMARY [address]59 [address] CARE CLINIC 2021-10-16 2021-10-16 Emergency X CONRADO, MARCIO [facility] ERT 1 [id number] Univers 10:49:00 15:05:00 CONRADOGABBYANJU ity of [facility] 2021-10-16 2021-10-16 Emergency Conrado, TRAUMA 1.2.491.390 [id number] Univers 10:49:00 15:05:00 [facility] 350.1.13.10 ity of [place] [phone] [facility] 014 Branch 2021-10-16 2021-10-16 Outpatient Guillermo MAIN [facility] [id number] Univers 14:00:00 14:00:00 [facility] 2021-10-16 2021-10-16 Outpatient Guillermo MAIN [facility] [id number] Univers 14:00:00 14:00:00 [facility] 2021-10-16 2021-10-16 Outpatient Guillermo MAIN [facility] [id number] Univers 14:00:00 14:00:00 [facility] 2021-10-16 2021-10-16 Outpatient Guillermo [facility] [id number] Univers 14:00:00 14:00:00 [facility] 2021-10-16 2021-10-16 Telephone CARMEN Potter 1.2.840.114 [id number] Univers 00:00:00 00:00:00 Dayanara [facility] 350.1.13.10 ity of CL[place]ICS 4[place] [phone] [facility] [address] 2021-10-16 2021-10-16 Telephone Christel TAPIA 1.2.840.114 [id number] Univers 00:00:00 00:00:00 [place], PEDIATRIC 350.1.13.10 ity of Mandeep Vargas [place] [phone] [facility] PRIMARY 059 [address] CARE CLINIC 2021-10-15 2021-10-15 Office CARMEN Potter 1.2.625.159 [id number] Univers 14:20:00 15:00:00 Visit Dayanara [facility] 350.1.13.10 ity of CL[place] 4.[place] [phone] [facility] [address] 2021-10-15 2021-10-15 Outpatient R ABBEY [facility] [id number] Univers 14:20:00 14:20:00 DAYANARA ity of [facility] 2021-10-15 2021-10-15 Telephone Grisel [facility] 1.2.478.494 [id number] Univers 00:00:00 00:00:00 Penny FORD 350.1.13.10 ity [facility] 4.2.[place].2.[place] [phone] [address] DIABETES CLINIC 2021-10-15 2021-10-15 Telephone Grisel [facility] 1.2.223.661 [id number] Univers 00:00:00 00:00:00 Penny FORD 350.1.13.10 ity of [place] [phone] [address] DIABETES CLINIC 2021-10-15 2021-10-15 Orders Doctor FARZAD 1.2.840.114 [id number] Univers 00:00:00 00:00:00 Only Unassigned, RUDI 350.1.13.10 ity of [place] 4.2.7.2.686 Derrick as [phone] [facility] 009 [address] 2021-10-13 2021-10-13 Candy Catcher [facility] 1.2.840.114 [id number] Univers 14:30:00 14:45:00 Visit Penny Recinos 350.1. 13.10 ity of [place] [phone] [facility] [address] DIABETES CLINIC 2021-10-13 2021-10-13 Outpatient R RECINOS [facility] [id number] Univers 14:00:00 14:26:12 [facility] 2021-10-13 2021-10-13 [facility] 1.2.840.114 [id number] Univers 14:00:00 14:26:12 Visit Penny FORD 350.1.13.10 ity of [facility] DANIEL 4.2.7.2.686 [facility] [place] [phone] [facility] [address] DIABETES CLINIC 2021-10-13 2021-10-13 Outpatient R RECINOS [facility] [id number] Univers 14:00:00 14:26:12 [facility] 2021-10-13 2021-10-13 Office [facility] 1.2.840.114 [id number] Univers 14:00:00 14:26:12 Visit Penny FORD 350.1.13.10 ity of [facility] DANIEL 4.2.7.2.686 [facility] [place] [phone] [facility] [address] DIABETES CLINIC 2021-10-13 2021-10-13 Outpatient R GRISEL [facility] [id number] Univers 14:00:00 14:00:00 [facility] 2021-10-10 2021-10-10 Telephone [facility] 1.2.840.114 [id number] Univers 00:00:00 00:00:00 Xochilt FORD 350.1.13.10 ity of [place] [phone] [facility] [address] [place] DIABETES CLINIC 2021-10-08 2021-10-08 Telephone [facility] 1.2.840.114 [id number] Univers 00:00:00 00:00:00 LEELEE Gillespie 350.1.13.10 ity of Mandeep TAVAREZ 4.2.7.2.686 [place] [facility] [phone] [place] [address] [facility] 2021-10-07 2021-10-07 Telephone [facility] 1.2.847.410 [id number] Univers 00:00:00 00:00:00 Penny RUBIOPEC 350.1.13.10 ity of [place].2.[place].2.[place] [id number] [facility] [address] DIABETES CLINIC 2021-10-07 2021-10-07 Telephone Grisel [facility] 1.2.915.273 [id number] Univers 00:00:00 00:00:00 Penny JOANNEPEC 350.1.13.10 ity of [place].2.[place].2.[place] [phone] [facility] [address] DIABETES CLINIC 2021-10-07 2021-10-07 Transition ARLETTE Valdez 1.2.840.114 [id number] Univers 00:00:00 00:00:00 of Care Ashanti THELMA 350.1.13.10 it y [place] [phone] [facility] [address] 2021-09-29 2021-10-05 [facility] [id number] Univers 14:00:00 17:00:00 GAILALED ity [facility] 2021-09-29 2021-10-05 Hospital Dinesh Dunbar 1.2.840. 114 [id number] Univers 14:00:00 17:00:00 Encounter Eneida Giang 350.1.13.1 0 ity of [facility] 4.2.7.2.686 Derrick as [phone] [facility] [address] 2021-09-29 2021-10-05 Inpatient [facility] [id number] Univers 14:00:00 17:00:00 GAILALED ity [facility] 2021-09-29 2021-10-05 Inpatient X PADMAJA [facility] [id number] Univers 14:00:00 17:00:00 KHALED ity [facility] 2021-10-02 2021-10-02 Surgery MARIO Ferris 1.2.840.114 [id number] Univers 08:05:00 09:05:00 Korey GRIJALVA 350.1.13.10 it y of [facility] 4.2.7.2.686 Derrick as [phone] [facility] [address] [place] 2021-09-30 2021-09-30 Case Christel MARTIN 1.2.840.114 [id number] Univers 00:00:00 00:00:00 Management RUDI Gillespie 350.1.13.[address] [facility] 4.2.7.2.686 Derrick as [phone] [facility] [address] [place] 2021-09-29 2021-09-29 Outpatient R [facility] [id number] Univers 13:30:00 13:30:00 [facility] 2021-09-29 2021-09-29 Outpatient R [facility]INAP[facility] [id number] Univers 13:30:00 13:30:00 [facility] tania [facility] 2021-09-29 2021-09-29 Telephone [facility] 1.2.840.11 [id number] Univers 00:00:00 00:00:00 Jose Gillespie [facility] 350.1.13.10 ity of [facility] 4.2.7.2.[place] [phone] [facility] [address] [place] 2021-09-26 2021-09-26 Candy Catcher 2, [facility] 1.2.840.114 [id number] Univers 13:45:00 14:00:00 Visit Aby Main 350.1.13.10 ity of [place].2.[place] PROFESSIO [phone] Vt dical NAL 353 [facility] 2021-09-26 2021-09-26 Candy Catcher 2, Adc Lab [facility] 1.2.840.114 [id number] Univers 13:45:00 14:00:00 Visit Aby Main 350.1.13.10 ity of [place] 4.2.7.2.[place] [phone] Vt dical NAL 353 [facility] 2021-09-26 2021-09-26 Outpatient R [facility]AR[facility] [id number] Univers 13:45:00 13:45:00 BUTCHZEB itjose [facility] 2021-09-26 2021-09-26 Candy Catcher Korey, Adc Lab Main [facility] 1.2.8 40.114 [id number] Univers 13:00:00 13:15:00 Visit Aby Main 350.1.13.10 ity of [place] 4.2.7.2.[place] PROFESS[place] [phone] Vt dical NAL [address] [place] [address] 2021-09-26 2021-09-26 Candy Catcher Korey, Adc Lab Main [facility] 1.2.8 40.114 [id number] Univers 13:00:00 13:15:00 Visit Aby Mani 350.1.13.10 ity of [place] 4.2.7.2.[place] PROFESSIO [id number] Vt dical NAL [address] [place] [address] 2021-09-26 2021-09-26 Outpatient Guillermo MAIN [facility] [id number] Univers 13:00:00 13:00:00 ABY itjose [facility] 2021-09-24 2021-09-24 Telephone [facility] 1.2.840.11 [id number] Univers 00:00:00 00:00:00 [facility] 350.1.13.10 ity of [place]andeep GUZMAN 4.2.7.2.686 [place] [id number] [facility] [address] 2021-09-22 2021-09-22 Outpatient Guillerom RECINOS [facility] [id number] Univers 16:00:00 16:46:08 PENNY marin [facility] 2021-09-22 2021-09-22 Office Grisel [facility] 1.2.840.114 [id number] Univers 16:00:00 16:46:08 Visit Penny FORD 350.1.13.10 ity of [place] 4.2.7.2.686 [place] [phone] [facility] AND [address] DIABETES CLINIC 2021-09-22 2021-09-22 Outpatient Guillermo RECINOS [facility] [id number] Univers 16:00:00 16:46:08 PENNY ity of [facility] 2021-09-16 2021-09-16 Telephone CARMEN Main 1.2.840.114 [id number] Univers 00:00:00 00:00:00 Aby Guillen HEALTH 350.1.13.10 ity of CLINICS 4.2.7.2.[place] [phone] [facility] [address] 2021-09-12 2021-09-12 Telephone Christel MORALES 1.2.840.11 [id number] Univers 00:00:00 00:00:00 [place], Y HEALTH 350.1.13.10 ity [facility] [place].2.[place] [phone] [facility] [address] 2021-09-12 2021-09-12 Telephone [facility] 1.2.252.086 [id number] Univers 00:00:00 00:00:00 Penny FORD 350.1.13.10 ity of [facility] 4.2.7.2.686 [place] C[place] [phone] [address] DIABETES CLINIC 2021-09-12 2021-09-12 Telephone [facility] 1.2.980.188 [id number] Univers 00:00:00 00:00:00 Penny FORD 350.1.13.10 ity of [facility] 4.2.7.2.[place] [phone] [address] DIABETES CLINIC 2021-09-11 2021-09-11 Orders Doctor PANDA 1.2.840.114 [id number] Univers 00:00:00 00:00:00 Only Unassigned, RUDI 350.1.13.10 ity of [facility] 4.2.7.2.686 Derrick as [phone] [place] [address] Branch 2021-09-04 2021-09-04 Telephone FARZAD Gonzalez 1.2.840.114 [id number] Univers 00:00:00 00:00:00 Radha GRIJALVA 350.1.13.10 it y of [facility] 4.2.7.2.686 [place] [id number] [facility] 037 [address] 2021-09-04 2021-09-04 Telephone Marynasreen TAPIA 1.2.840.114 [id number] Univers 00:00:00 00:00:00 [place], PEDIATRIC 350.1.13.10 ity of [place].2.[place].2.[place] [phone] [facility] PRIMARY [address] CARE CLINIC 2021-08-31 2021-08-31 Milagro [facility] 1.2.840.114 [id number] Univers 00:00:00 00:00:00 Andrea PRIMARY 350.1.13.10 it y of CARE 4.2.7.2.686 [place] PAVFESTUSON [phone] Vt dical [address] 2021-08-28 2021-08-28 Telephone [facility] 1.2.818.819 [id number] Univers 00:00:00 00:00:00 Penny FORD 350.1.13.10 ity of [place] 4.2.7.2.686 [place] [phone] [facility] AND GAIL [address] DIABETES CLINIC 2021-08-28 2021-08-28 Orders Doctor FARZAD 1.2.840.114 [id number] Univers 00:00:00 00:00:00 Only Unassigned, RUDI 350.1.13.10 ity of [facility] 4.2.7.2.686 Derrick as [phone] [facility] [address] 2021-08-27 2021-08-27 Outpatient R ANAND [facility] [id number] Univers 13:00:00 13:00:00 SHIMA marin [facility] 2021-08-20 2021-08-20 Outpatient R GENNA [facility] [id number] Univers 15:00:00 16:46:46 CHAPARRO marin [facility] 2021-08-20 2021-08-20 Office Genna [facility] 1.2.840.114 [id number] Univers 15:00:00 16:46:46 Visit Chaparro FORD 350.1.13.10 ity of [place] 4.2.[place].2.686 [place] C[place] [phone] [facility] AND MAHWAH [address] DIABETES CLINIC 2021-08-20 2021-08-20 Outpatient R GENNA [facility] [id number] Univers 15:00:00 16:46:46 CHAPARRO hajose [facility] 2021-08-20 2021-08-20 Outpatient R GENNA [facility] [id number] Univers 15:00:00 15:00:00 CHAPARRO hajose [facility] 2021-08-19 2021-08-19 Orders Doctor FARZAD 1.2.840.114 [id number] Univers 00:00:00 00:00:00 Only Unassigned, RUDI 350.1.13.10 [email or web address] 4.2.7.2.686 Derrick as [phone] [facility] [address] 2021-08-17 2021-08-17 Nurse FARZAD Mackey 1.2.044.929 [id number] Univers 00:00:00 00:00:00 Triage Antoine RUDI 350.1.13.10 it y of [facility] 4.2.7.2.686 Derrick as [phone] [facility] 019 [address] 2021-08-15 2021-08-15 [facility] [id number] Univers 15:30:00 16:44:45 tania GILLESPIE of [facility] 2021-08-15 2021-08-15 Office Christel TAPIA 1.2.840.114 [id number] Univers 15:30:00 16:00:00 Visit Verna PEDIATRIC 350.1.13.10 ity of [place]2.7.2.[place] [phone] [facility] PRIMARY [address] CARE CLINIC 2021-08-15 2021-08-15 Out[facility] [id number] Univers 15:30:00 15:30:00 tania GILLESPIE of [facility] 2021-08-15 2021-08-15 Outpatient [facility] [id number] Univers 15:30:00 15:30:00 VERNA, ity of [facility] 2021-08-11 2021-08-11 Transition ARLETTE Gagnon 1.2.840.114 [id number] Univers 00:00:00 00:00:00 of Sandra Phylicia Sonny RENEE 350.1.13.10 it y of [place] 4.2.7.2.686 [place] [phone] [facility] [address] 2021-07-29 2021-08-09 [facility], Ruth MARTIN 1.2.84 0.114 [id number] Univers 09:30:00 15:29:00 Encounter Mandeep Dominique 350.1.13.10 ity of [facility] 4.2.7.2.686 Derrick as [phone] [facility] [address] 2021-07-29 2021-08-09 Inpatient [facility] [id number] Univers 09:30:00 15:29:00 VERNA, ity of [facility] 2021-07-29 2021-08-09 Inpatient X [facility] [id number] Univers 09:30:00 15:29:00 VERNA, ity of [facility] 2021-07-29 2021-08-09 Inpatient [facility] [id number] Univers 09:30:00 15:29:00 VERNA, ity of [facility] 2021-08-08 2021-08-08 Telephone JENNIFER Recinos 1.2.468.267 [id number] Univers 00:00:00 00:00:00 Penny FORD 350.1.13.10 ity of [facility] 4.2.7.2.[place] [phone] [facility] AND MAHWAH [address] [place] DIABETES CLINIC 2021-08-07 2021-08-07 Telephone Christel 1.2.840.7 [id number] Univers 00:00:00 00:00:00 Verna 75369.1.1 it y of Mandeep Vargas 3.104.2.7 [place] .3.467720 Medica l .8 Branch 2021-08-06 2021-08-06 Anesthesia Prudencio Hernandez 1.2.840.1 10 [id number] Univers 09:49:00 10:42:00 Event Gold Cole 17375.1.1 ity of 3.104.2.7 [place] .3.789132 Medica l .8 Branch 2021-08-05 2021-08-05 Outpatient Guillermo RECINOS [facility] [id number] Univers 09:00:00 09:00:00 [facility] 2021-08-05 2021-08-05 Outpatient Guillermo RECINOS [facility] [id number] Univers 09:00:00 09:00:00 PENNY [facility] 2021-08-04 2021-08-04 Surgery JuventinoMARIO 1.2.840.114 [id number] Univers 14:00:00 15:00:00 Deni Derrek RUDI 350.1.13.10 it y of [facility] 4.2.7.2.686 Derrick as [id number] Medi juan [address] [place] 2021-08-04 2021-08-04 Anesthesia [facility], 1.2.840.1 [id number] Univers 14:58:00 14:58:00 Event Myles 46138.1.1 ity of 3.104.2.7 [place] .3.713356 Medica l .8 Branch 2021-07-31 2021-07-31 Case Nyla- 1.2.840.5 [id number] Univers 00:00:00 00:00:00 Management Verna 61843.1.1 ity of Nitin 3.104.2.7 [place] .3.556603 Medica l .8 Branch 2021-07-29 2021-07-29 Inpatient X NYLA- [facility] [id number] Univers 09:30:00 09:30:00 mary GILLESPIEy of MANDEEP [facility] 2021-07-29 2021-07-29 Travel 1.2.840.1 1.2.361.474 [id number] Univers 00:00:00 00:00:00 53701.1.1 350.1.13.10 ity of 3.104.2.7 4.2.7.3.698 [place] .3.826608 084.8 Medica l .[address] [place] 2021-07-24 2021-07-24 Telephone Dexter Hu 1.2.840.7 [id number] Univers 00:00:00 00:00:00 34664.1.1 ity of 3.104.2.7 [place] .3.549000 Medica l .[address] [place] 2021-07-24 2021-07-24 Telephone Recinos, 1.2.840.5 [id number] Univers 00:00:00 00:00:00 Penny 40299.1.1 ity of [place] 3.104.2.7 [place] .3.912780 Medica l .8 [place] 2021-07-17 2021-07-17 Office Dexter Hu 1.2.840.5 [id number] Univers 13:15:00 13:22:23 Visit 97228.1.1 ity of 3.104.2.7 [place] .3.712253 Medica l .8 [place] 2021-07-17 2021-07-17 Outpatient R DEXTER HU [facility] [id number] Univers 13:15:00 13:22:23 ity of [facility] 2021-07-17 2021-07-17 Outpatient R DEXTER HU [facility] [id number] Univers 13:15:00 13:22:23 ity of [facility] 2021-07-17 2021-07-17 Outpatient R DEXTER HU [facility] [id number] Univers 13:15:00 13:15:00 ity of [facility] 2021-07-17 2021-07-17 Outpatient R BETO [facility] [id number] Univers 10:00:00 11:05:22 [facility] ity [facility] 2021-07-17 2021-07-17 Office Beto [facility] 1.2.840.114 [id number] Univers 10:00:00 11:05:22 Visit Shon MCKOY 350.1.13.10 i ty of [place] [id number] Vt dical NAL 204 [facility] 2021-07-17 2021-07-17 Office Beto, 1.2.840.9 [id number] Univers 10:00:00 11:05:22 Visit [facility] 87639.1.1 ity of 3.104.2.7 [place] .3.862225 Medica l .8 [place] 2021-07-17 2021-07-17 [facility] [id number] Univers 10:00:00 11:05:22 [facility] ity [facility] 2021-07-17 2021-07-17 Outpatient R [facility] [id number] Univers 10:00:00 10:00:00 [facility] ity [facility] 2021-07-17 2021-07-17 Travel 1.2.840.1 1.2.317.527 [id number] Univers 00:00:00 00:00:00 65293.1.1 350.1.13.10 ity of 3.104.2.7 4.[place]3.698 [place] .3.218180 084.8 Medica l .8 [place] 2021-07-14 2021-07-14 Transition AngelineARLETTE 1.2.840.114 [id number] Univers 00:00:00 00:00:00 of Care Hai Anglin RENEE 350.1.13.10 [place] [id number] [facility] juan 403 [place] 2021-07-14 2021-07-14 Transition Angeline, 1.2.840.9 [id number] Univers 00:00:00 00:00:00 of Care Hai Anglin 38324.1.1 it y of 3.104.2.7 [place] .3.165737 Medica l .8 [place] 2021-07-09 2021-07-11 Outpatient X DEXTER HU [facility] SARAH [id number] Univers 13:26:00 14:16:00 ity of [facility] 2021-07-09 2021-07-11 Emergency Oma Caldwell 1.2.84 0.114 [id number] Univers 13:26:00 14:16:00 Dexter Hu 350.1.13.10 ity of [facility] 4.2.7.2.686 Derrick as [phone] [facility] 090 [place] 2021-07-09 2021-07-11 Emergency Oma Caldwell 1.2.840.1 [id number] Univers 13:26:00 14:16:00 Dexter Hu 55977.1.1 ity of 3.104.2.7 [place] .3.264749 Medica l .8 [place] 2021-07-09 2021-07-11 Outpatient X DEXTER HU [facility] SARAH [id number] Univers 13:26:00 14:16:00 ity of [facility] 2021-07-09 2021-07-11 Outpatient X DEXTER HU [facility] SARAH 795 [id number] Univers 13:26:00 14:16:00 ity of [facility] 2021-07-09 2021-07-11 Outpatient X DXETER HU [facility] SARAH 936 [id number] Univers 13:26:00 14:16:00 ity of [facility] 2021-07-09 2021-07-09 Travel 1.2.840.1 1.2.480.860 [id number] Univers 00:00:00 00:00:00 22179.1.1 350.1.13.10 ity of 3.104.2.7 4[place].3.698 [place] .3.418[place] 084.8 Medica l .8 [place] 2021-07-04 2021-07-04 Telephone FARAZD Beard 1.2.335.864 [id number] 2304 Univers 00:00:00 00:00:00 Terra GRIJALVA 350.1.13.10 ity of [facility] 4.2.7.2.686 Derrick as [phone] [facility] 037 Branch 2021-07-04 2021-07-04 Telephone Jacob Beard.2.840.8 [id number] Univers 00:00:00 00:00:00 Terra Pepper 58324.1.1 it y of 3.104.2.7 [place] .3.891769 Medica l .8 Branch 2021-07-02 2021-07-02 Telephone Grisel [facility] 1.2.249.477 [id number] Univers 00:00:00 00:00:00 Penny MULTISPEC 350.1.13.10 ity of [place] [phone] [facility] AND [address] [facility] 2021-07-02 2021-07-02 Telephone Grisel, 1.2.840.5 [id number] Univers 00:00:00 00:00:00 Penny 56738.1.1 ity of [place] 3.104.2.7 [place] .3.476456 Medica l .8 [place] 2021-07-01 2021-07-01 Outpatient R EDWIN [facility] [id number] Univers 16:00:00 16:35:20 RAHEEM ity [facility] 2021-07-01 2021-07-01 Office KYLEIGH Villasenor 1.2.840.114 [id number] Univers 16:00:00 16:35:20 Visit Raheem Villegas Y HEALTH 350.1.13.10 ity of CL[place] [id number] [facility] 204 Branch 2021-07-01 2021-07-01 Outpatient R EDWIN [facility] [id number] Univers 16:00:00 16:35:20 RAHEEM ity [facility] 2021-07-01 2021-07-01 Office Edwin, 1.2.840.1 [id number] Univers 16:00:00 16:35:20 Visit Raheem Nelly 85261.1.1 ity of 3.104.2.7 [place] .3.643617 Medica l .8 [place] 2021-07-01 2021-07-01 Outpatient R EDWIN [facility] [id number] Univers 16:00:00 16:35:20 RAHEEM ity [facility] 2021-07-01 2021-07-01 Outpatient Guillermo VILLASENOR [facility] [id number] Univers 16:00:00 16:35:20 RAHEEM ity of [facility] 2021-07-01 2021-07-01 Outpatient R EDWIN [facility] [id number] Univers 16:00:00 16:00:00 RAHEEM ity [facility] 2021-07-01 2021-07-01 ARLETTE Lantigua 1.2.840.114 [id number] Univers 00:00:00 00:00:00 Management Chanelle J RENEE 350.1.13.10 [place] [phone] [facility] 403 [place] 2021-07-01 2021-07-01 Thomas Yamila, 1.2.840.4 [id number] Univers 00:00:00 00:00:00 Management Chanelle J 98040.1.1 ity of 3.104.2.7 [place] .3.617060 Medica l .8 [place] 2021-07-01 2021-07-01 Travel 1.2.840.1 1.2.952.194 [id number] Univers 00:00:00 00:00:00 35127.1.1 350.1.13.10 ity of 3.104.2.7 4.[place].3.698 [place] .3.567338 084.8 Medica l .8 [place] 2021-06-30 2021-06-30 Transition ARLETTE Gagnon 1.2.840.114 [id number] Univers 00:00:00 00:00:00 of Care Phylicia B RENEE 350.1.13.10 [place] [id number] [facility] 403 [place] 2021-06-30 2021-06-30 Transition Kalin 1.2.840.0 [id number] Univers 00:00:00 00:00:00 of Care Phylicia B 24646.1.1 ity of 3.104.2.7 [place] .3.288946 Medica l .8 Branch 2021-06-17 2021-06-27 Inpatient X LICDEXTER Landis [facility] [id number] Univers 07:25:00 16:52:00 ity of [facility] 2021-06-17 2021-06-27 [facility] Indio Barbosa 1.2.840.1 14 [id number] Univers 07:25:00 16:52:00 Encounter Mandeep Dominique 350.1.13.10 [facility] 4.2.7.2.686 [place] [phone] [facility] 089 Branch 2021-06-17 2021-06-27 Inpatient X DEXTER HU [facility] [id number] Univers 07:25:00 16:52:00 ity of [facility] 2021-06-17 2021-06-27 [facility] 1.2.840.1 [id number] Univers 07:25:00 16:52:00 Encounter Mandeep Dominique 98462.1. 1 [facility] [place] .3.512[place] Medica l .8 [place] 2021-06-17 2021-06-27 Inpatient X MAYTE [facility] [id number] Univers 07:25:00 16:52:00 ity of [facility] 2021-06-27 2021-06-27 [facility] 1.2.314.873 [id number] Univers 00:00:00 00:00:00 Terra Guillen [facility] 350.1.13.10 ity of CLINICS 4.2.[place] [id number] [facility] 185 Branch 2021-06-27 2021-06-27 Milagro Ibrahim, 1.2.840.4 [id number] Univers 00:00:00 00:00:00 Terra Pepper 28027.1.1 it y of 3.104.2.7 [place] .3.101408 Medica l .8 Branch 2021-06-23 2021-06-23 Surgery Dexter Hu 1.2.840.114 [id number] Univers 07:15:00 15:07:00 RUDI 350.1.13.10 it y of [facility] 4.2.7.2.686 Derrick as [phone] [facility] 103 Branch 2021-06-23 2021-06-23 Surgery Dexter Hu 1.2.840.9 [id number] Univers 07:15:00 15:07:00 48278.1.1 ity of 3.104.2.7 [place] .3.707365 Medica l .8 [place] 2021-06-23 2021-06-23 Anesthesia Rony Valle 1.2.840. 1 [id number] Univers 07:20:00 14:00:00 Event Chaparro Kim 83626.1.1 ity of 3.104.2.7 [place] .3.743865 Medica l .8 Branch 2021-06-17 2021-06-17 Travel 1.2.840.1 1.2.547.417 [id number] Univers 00:00:00 00:00:00 98744.1.1 350.1.13.10 ity of 3.104.2.7 4.[place].3.698 [place] .3.462717 084.8 Medica l .8 [place] 2021-05-19 2021-05-19 Refill Grisel, 1.2.840.0 [id number] Univers 00:00:00 00:00:00 Penny 35345.1.1 ity of [place] 3.104.2.7 [place] .3.025496 Medica l .8 Branch 2021-04-27 2021-04-27 Refill JENNIFER Recinos 1.2.840.114 [id number] Univers 00:00:00 00:00:00 Penny MULTISPEC 350.1.13.10 ity of [place] 4.2.7.2.686 [place] [facility] [id number] [facility] AND [place] [address] [facility] 2021-04-01 2021-04-01 Refill JENNIFER Recinos 1.2.840.114 [id number] Univers 00:00:00 00:00:00 Penny MULTISPEC 350.1.13.10 ity of [place] IALTY 4.2.7.2.686 [facility] [phone] [address] [facility] 2021-03-28 2021-03-28 Refill [facility] 1.2.840.114 [id number] Univers 00:00:00 00:00:00 Penny MULTISPEC 350.1.13.10 it[place] [id number] [address] [facility]ES [facility]INIC 2021-03-24 2021-03-24 Refill [facility] 1.2.840.114 [id number] [facility] 00:00:00 00:00:00 Penny MULTISPEC 350.1.13.10 ity of [place] 4.2.7.2.686 [facility] [id number] [address] [facility]ES [facility] 2021-02-18 2021-02-18 Telephone [facility] 1.2.169.658 [id number] Univers 00:00:00 00:00:00 Penny MULTISPEC 350.1.13.10 ity of [place] I[place] 4.2.7.2.686 [facility] [id number] [address] DI[facility]ES [facility]INIC 2021-02-12 2021-02-12 [facility] [id number] Univers 14:15:00 14:29:17 ADRIANNE ity [facility] 2021-02-12 2021-02-12 Outpatient R [facility] [id number] Univers 14:15:00 14:29:17 ADRIANNE ity [facility] 2021-02-12 2021-02-12 Office [facility] 1.2.840.114 [id number] Univers 13:47:10 14:29:17 Visit Adrianne RUBIOPEC 350.1.13.10 it[place] [id number] [address] DIABETES CLINIC 2021-02-12 2021-02-12 Outpatient R BRANDY [facility] [id number] Univers 14:15:00 14:15:00 ADRIANNE marin [facility] 2021-02-10 2021-02-10 Candy Catcher Nhc-Lab [facility] 1.2.840.114 [id number] Univers 09:31:09 09:46:09 Visit Penny Recinos 350.1. 13.10 ity of [place] 4.2.7.2.686 [facility] [id number] [facility] [address] [place] [facility] 2021-02-10 2021-02-10 Office Grisel [facility] 1.2.840.114 [id number] Univers 08:28:10 09:33:10 Visit Penny FORD 350.1.13.10 ity of [place] 4.2.7.2.686 [facility] [phone] [facility] [address] [place] [facility] 2021-02-10 2021-02-10 Outpatient R GRISEL [facility] [id number] Univers 09:00:00 09:00:00 PENNY marin [facility] 2021-01-06 2021-01-06 Refill Grisel [facility] 1.2.840.114 [id number] Univers 00:00:00 00:00:00 Penny FORD 350.1.13.10 ity of [place] 4.2.7.2.686 [facility] [id number] [facility] [address] [place] [facility] 2020-10-24 2020-10-24 Office Grisel [facility] 1.2.840.114 [id number] Univers 10:35:33 12:01:26 Visit Penny FORD 350.1.13.10 ity of [place] 4.2.7.2.686 [facility] [place] [phone] [address] [facility]ES [facility]IN[facility] 2020-10-24 2020-10-24 Outpatient Guillermo RECINOS [facility] [id number] Univers 11:30:00 11:30:00 PENNY marin [facility] 2020-10-16 2020-10-16 Telephone Grisel [facility] 1.2.890.565 [id number] Univers 00:00:00 00:00:00 Penny FORD 350.1.13.10 ity of [place] 4.2.7.2.686 [facility] [id number] [facility] AND MAHWAH [address] [facility]ES [facility]IN[facility] 2020-10-10 2020-10-10 Emergency [facility] 1.2.598.750 [id number] Univers 09:02:00 10:47:00 Preet Mckoy 350.1.13.10 i ty of [place] 4.2.7.2.686 [facility] [phone] [facility] 084 Branch 2020-10-10 2020-10-10 Orders Doctor FARZAD 1.2.840.114 [id number] Univers 00:00:00 00:00:00 Only Unassigned, RUDI 350.1.13.10 ity of [place] [facility] 4.2.7.2.686 [facility] [phone] [facility] 009 Branch 2020-09-16 2020-09-16 Outpatient Guillermo RECINOS [facility] [id number] Univers 00:00:00 00:00:00 PENNY jose [facility] 2020-09-16 2020-09-16 Outpatient Guillermo RECINOS [facility] [id number] Univers 00:00:00 00:00:00 PENNY marin [facility] 2020-08-21 2020-08-21 Outpatient Guillermo WOODALL [facility] [id number] Univers 09:30:00 09:30:00 JOHANNE marin [facility] 2020-07-31 2020-07-31 Outpatient Guillermo WOODALL [facility] [id number] Univers 08:50:00 08:50:00 JOHANNE marin [facility] 2020-07-29 2020-07-29 Outpatient Guillermo RECINOS [facility] [id number] Univers 10:30:00 10:30:00 PENNY marin [facility] 2020-05-20 2020-05-20 [facility] 1.2.840.114 [id number] Univers 00:00:00 00:00:00 Penny MULTISPEC 350.1.13.10 ity [place].2.[place] [id number] [facility] [address] [place] [facility] 2020-04-03 2020-04-03 Telephone Grisel [facility] 1.2.202.826 [id number] Univers 00:00:00 00:00:00 Penny RUBIOPEC 350.1.13.10 ity [place].2.[place] [id number] [address] DIABETES CLINIC 2020-01-24 2020-01-24 Candy Catcher Vtc-Lab [facility] 1.2.840.114 [id number] Univers 11:18:17 11:33:17 Visit Penny Recinos 350.1. 13.10 it[place]2.[place] [id number] [address] DIABETES CLINIC 2020-01-24 2020-01-24 Office [facility] 1.2.840.114 [id number] Univers 10:36:09 11:18:50 Visit Penny FORD 350.1.13.10 ity of [place] I[place]TY 4.2.7.2.686 [facility] [phone] [address] DIABETES [employer] 2020-01-24 2020-01-24 Outpatient R GRISEL [facility] [id number] Univers 11:00:00 11:00:00 PENNY marin of [facility] 2020-01-24 2020-01-24 Orders Doctor FARZAD 1.2.840.114 [id number] Univers 00:00:00 00:00:00 Only Unassigned, RUDI 350.1.13.10 ity of [place] [facility] 4.2.7.2.686 Derrick as [id number] [address] 2020-01-16 2020-01-16 Telephone Grisel [facility] 1.2.211.773 [id number] Univers 00:00:00 00:00:00 Penny FORD 350.1.13.10 ity [place].2.[place] [id number] [address] DIABETES CLINIC 2019-11-30 2019-11-30 [facility] 1.2.840.114 [id number] Univers 00:00:00 00:00:00 Penny MULTISPEC 350.1.13.10 ity [place].2.[place] [id number] [address] DIABETES CLINIC 2019-10-24 2019-10-24 [facility] 1.2.303.083 [id number] Univers 00:00:00 00:00:00 Penny MULTISPEC 350.1.13.10 ity [place].2.[place] [phone] [address] DIABETES [employer] 2019-09-15 2019-09-15 [facility]ill [facility] 1.2.840.114 [id number] Univers 00:00:00 00:00:00 Penny PRIMARY 350.1.13.10 it y of [place] 4.2.7.2.686 [place] [facility] [phone] [address] 2019-08-14 2019-08-14 [facility] 1.2.840.114 [id number] Univers 00:00:00 00:00:00 Penny MULTISPEC 350.1.13.10 ity [place].2.[place] [id number] [address] DIABETES [facility]INIC 2019-02-23 2019-02-23 [facility] 1.2.093.915 [id number] Univers 00:00:00 00:00:00 Penny MULTISPEC 350.1.13.10 ity [place]2.[place].2.686 [place] [id number] [address] DIABETES CLINIC 2019-02-22 2019-02-22 [facility] 1.2.840.114 [id number] Univers 00:00:00 00:00:00 Penny MULTISPEC 350.1.13.10 ity [place] 4[place].2.[place] [id number] [address] DIABETES [employer] 2019-02-17 2019-02-17 Telephone [facility] 1.2.402.832 [id number] Univers 00:00:00 00:00:00 Penny FORD 350.1.13.10 ity of [facility] IALTY 4.2.7.2.686 [facility] [place] [phone] [address] DIABETES [employer] 2019-02-08 2019-02-08 Office [facility] 1.2.840.114 [id number] 389 [facility] 13:26:11 15:06:20 Visit Chaparro FORD 350.1.13.10 ity of IALTY 4.2.7.2.686 [facility] [place] [phone] [address] DIABETES [employer] 2019-02-07 2019-02-07 Telephone Grisel [facility] 1.2.778.951 [id number] [id number] Univers 00:00:00 00:00:00 Penny RUBIOSARAH 350.1.13.10 ity of [place] IALTY 4.2.7.2.686 [facility] [place] [phone] [address] DIABETES [employer] Results Test Description Test Time Test Comments Results Result Comments Source POCT GLUCOSE (AUTOMATED) 2022-10-17 16:56:05 Test Item Value Reference Range Interpretation Comme nts POCT GLU (test code = 0115365288) 152 mg/dL 70-110 H Lab Interpretation (test code = 05930-6) Abnormal [facility] use with Heparin Infusion)2022-10-17 09:11:20 Test Item Value Reference Range Interpretation Comments APTT Patient (test code 44 See_Comment H [Au tomated message] = 3173-2) The system [employer] generated this result transmitted ref erence range: 26 - 36 Seconds. The reference range was not used to int erpret this result as normal/abnormal . Lab Interpretation (test Abnormal code = 29835-1) [facility] (NA, K, CL, CO2, GLUCOSE, BUN, CREATININE, CA)2022-10-17 09:10:49 Test Item Value Reference Range Interpretation Comments NA (test code = 135 mmol/L 135-145 2456579357) K (test code = 4.7 mmol/L 3.5-5.0 1034654242) CL (test code = 101 mmol/L 98-108 6347762443) CO2 TOTAL (test code = 27 mmol/L 23-31 8057809537) AGAP (test code = 7 2-16 2205267935) BUN (test code = 40 mg/dL 7-23 H 8456307206) GLUCOSE (test code = 147 mg/dL 70-110 H 8304217114) CREATININE (test code = 2.64 mg/dL 0.60-1.25 H 1898974101) CALCIUM (test code = 7.9 mg/dL 8.6-10.6 L 3023010411) eGFR (test code = 23.8 mL/min/1.73m2 6762707652) JALEESA (test code = JALEESA) Association of Glomerular Filtration Rate (GFR) and Staging of Kidney Disease* + --+ --+ ------+| GFR (mL/min/1.73 m2) ?| With Kidney Damage ?| ?Without Kidney Damage+ --------+ --------+ +| ?>90 ?| ?Stage one ?| ? Normal ?+ ---+ ---+ -------+| ?60-89 ?| ?Stage two ?| ? Decreased GFR ? + --+ --+ ------+| ?30-59 ?| ?Stage three ?| ? Stage three ? + --+ --+ ------+| ?15-29 ?| ?Stage four ? | ? Stage four ?+ ---+ ---+ -------+| ?<15 (or dialysis) ? ?| ?Stage five ? | ? Stage five ?+ ---+ ---+ -------+ *Each stage assumes the associated GFR level has been in effect for at least three months. ?Stages 1 to 5, with or without kidney disease, indicate chronic kidney disease. Notes: Determination of stages one and two (with eGFR >59mL/min/1.73 m2) requires estimation of kidney damage for at least three months as defined by structural or functional abnormalities of the kidney, manifested by either:Pathological abnormalities or Markers of kidney damage (including abnormalities in the composition of the blood or urine or abnormalities in imaging tests). Lab Interpretation Abnormal (test code = 15091-0) [facility] WITHOUT [id number] 08:45:45 Test Item Value Reference Range Interpretation Comments WBC (test code = 6690-2) 4.92 See_Comment [A utomated message] The system [employer] generated this result transmit alice reference range : 4.20 - 10.70 10*3/?L. The reference range was not used to interpret this result as normal/abnormal . RBC (test code = 789-8) 3.33 See_Comment L [Au tomated message] The system [employer] generated this result transmit alice reference range : 4.26 - 5.52 10* 6/?L. The reference r brandin was not used to interpret this result as normal/abnormal . HGB (test code = 718-7) 9.8 g/dL 12.2-16.4 L HCT (test code = 4544-3) 31.7 % 38.4-49.3 L MCH (test code = 785-6) 29.4 pg 26.1-32.7 MCV (test code = 787-2) 95.2 fL 81.7-95.6 MCHC (test code = 786-4) 30.9 g/dL 31.2-35.0 L PLT (test code = 777-3) 115 See_Comment L [Au tomated message] The system [employer] generated this result transmit alice reference range : 150 - 328 10*3/?L. The reference range was not used to interpret this result as normal/abnormal . MPV (test code = 11.5 fL 9.8-13.0 84829-9) RDW-CV (test code = 16.0 % 12.1-15.4 H 788-0) RDW-SD (test code = 53.3 fL 38.5-51.6 H 64092-9) NRBC x10^3 (test code = See_Comment [Au tomated message] 7669892063) The system [employer] generated this result transmit alice reference range : 10*3/?L. The reference range was not used to interpret this result as normal/abnormal . NRBC/100 WBC (test code 0.0 See_Comment [Au tomated message] = 7078360323) The system [facility] generated this result transmit alice reference range : 0.0 - 10.0 /100 WBC s. The reference r brandin was not used to interpret this result as normal/abnormal . IPF % (test code = 7826706520) Lab Interpretation (test Abnormal code = 86896-3) [facility] Sendout- Medfusion: 1298943 MDS FISH [id number] 12:11:39 Test Item Value Reference Range Interpretation Comments Miscellaneous Test (test See scanned report code = 5808345689) Performing Lab (test code Med fusion = 0836130020) [facility] GLUCOSE (AUTOMATED)2022-10-07 21:47:08 Test Item Value Reference Range Interpretation Comments POCT GLU (test code = 193 mg/dL 70-110 H Notifi ed Provider [id number]) Lab Interpretation (test Abnormal code = 97109-8) [facility] GLUCOSE (AUTOMATED)2022-10-07 18:17:17 Test Item Value Reference Range Interpretation Comments POCT GLU (test code = 7870648736) 112 mg/dL 70-110 H Lab Interpretation (test code = Abnormal 92652-3) [facility]2023-[facility]-19 11:23:35 Test Item Value Reference Range Interpretation Comments PHOSPHORUS (test code = 8812484760) 5.4 mg/dL 2.5-5.0 H Lab Interpretation (test code = Abnormal 61073-9) [facility]20[facility]-04-19 11:23:35 Test Item Value Reference Range Interpretation Comments MAGNESIUM (test code = 8102735948) 2.3 mg/dL 1.7-2.4 Lab Interpretation (test code = Normal 14066-5) [facility] MET[facility]OLIC [facility] (NA, K, CL, CO2, GLUCOSE, BUN, CREATININE, CA)2022-10-07 11:23:34 Test Item Value Reference Range Interpretation Comments NA (test code = 132 mmol/L 135-145 L 5370039109) K (test code = 5.1 mmol/L 3.5-5.0 H 6264870701) CL (test code = 96 mmol/L 98-108 L 1161712897) CO2 TOTAL (test code = 23 mmol/L 23-31 9246740694) AGAP (test code = 13 2-16 3399931690) BUN (test code = 85 mg/dL 7-23 H 6151235481) GLUCOSE (test code = 153 mg/dL 70-110 H 6394969437) CREATININE (test code = 3.77 mg/dL 0.60-1.25 H 4407024103) CALCIUM (test code = 8.3 mg/dL 8.6-10.6 L 1988236439) eGFR (test code = 15.8 mL/min/1.73m2 6522230492) JALEESA (test code = JALEESA) Association of Glomerular Filtration Rate (GFR) and Staging of Kidney Disease* + --+ --+ ------+| GFR (mL/min/1.73 m2) ?| With Kidney Damage ?| ?Without Kidney Damage+ --------+ --------+ +| ?>90 ?| ?Stage one ?| ? Normal ?+ ---+ ---+ -------+| ?60-89 ?| ?Stage two ?| ? Decreased GFR ? + --+ --+ ------+| ?30-59 ?| ?Stage three ?| ? Stage three ? + --+ --+ ------+| ?15-29 ?| ?Stage four ? | ? Stage four ?+ ---+ ---+ -------+| ?<15 (or dialysis) ? ?| ?Stage five ? | ? Stage five ?+ ---+ ---+ -------+ *Each stage assumes the associated GFR level has been in effect for at least three months. ?Stages 1 to 5, with or without kidney disease, indicate chronic kidney disease. Notes: Determination of stages one and two (with eGFR >59mL/min/1.73 m2) requires estimation of kidney damage for at least three months as defined by structural or functional abnormalities of the kidney, manifested by either:Pathological abnormalities or Markers of kidney damage (including abnormalities in the composition of the blood or urine or abnormalities in imaging tests). Lab Interpretation Abnormal (test code = 48681-6) [facility] WITH [id number] 10:39:25 Test Item Value Reference Range Interpretation Comments WBC (test code = 4.13 See_Comment L [Automated 6690-2) message] The sy stem which generated this result transmitted reference range : 4.20 - 10.70 10*3/?L. The reference range was not used to interpret this result as normal/abnormal . RBC (test code = 3.90 See_Comment L [Automated 789-8) message] The sy stem which generated this result transmitted reference range : 4.26 - 5.52 10*6/?L. The reference range was not used to interpret this result as normal/abnormal . HGB (test code = 11.5 g/dL 12.2-16.4 L 718-7) HCT (test code = 36.7 % 38.4-49.3 L 4544-3) MCV (test code = 94.1 fL 81.7-95.6 787-2) MCH (test code = 29.5 pg 26.1-32.7 785-6) MCHC (test code = 31.3 g/dL 31.2-35.0 786-4) RDW-SD (test code = 51.7 fL 38.5-51.6 H 16774-7) RDW-CV (test code = 14.9 % 12.1-15.4 788-0) PLT (test code = 82 See_Comment L [Automated 777-3) message] The sy stem which generated this result transmitted reference range : 150 - 328 10*3/ ?L. The reference r brandin was not used to interpret this result as normal/abnormal . MPV (test code = 12.6 fL 9.8-13.0 78587-9) IPF % (test code = 7.2 % 1.2-10.7 Platelet count 7456421416) measured by fluorescence method. NRBC/100 WBC (test 0.0 See_Comment [Automat ed code = 7236570976) message] The system which generated this result transmitted reference range : 0.0 - 10.0 /100 WBCs. The refer ence range was not u sed to interpret th is result as normal/abnormal . NRBC x10^3 (test code See_Comment [Auto mated = 8772305111) message] The s ystem which generated this result transmitted reference range : 10*3/?L. The reference range was not used to interpret this result as normal/abnormal . GRAN MAT (NEUT) % 55.2 % (test code = 770-8) IMM GRAN % (test code 0.50 % = 6457819907) LYMPH % (test code = 25.7 % 736-9) MONO % (test code = 15.7 % 5905-5) EOS % (test code = 1.9 % 713-8) BASO % (test code = 1.0 % 706-2) GRAN MAT x10^3(ANC) 2.28 10*3/uL 1.99-6.95 (test code = 6467401867) IMM GRAN x10^3 (test 0.00-0.06 code = 7088834913) LYMPH x10^3 (test code 1.06 10*3/uL 1.09-3.23 L = 731-0) MONO x10^3 (test code 0.65 10*3/uL 0.36-1.02 = 742-7) EOS x10^3 (test code = 0.08 10*3/uL 0.06-0.53 711-2) BASO x10^3 (test code 0.04 10*3/uL 0.01-0.09 = 704-7) GOLD CELLS (test code 2+ See_Comment A [Auto mated = 7090-9) message] The sy stem which generated this result transmitted reference range : (none). The reference range was not used to interpret this result as normal/abnormal . REACT LYMPHS (test Rare code = 7731224419) Lab Interpretation Abnormal (test code = 30301-4) [facility] / [id number] 10:04:10 Test Item Value Reference Range Interpretation Comments PROTIME PATIENT (test 15.3 See_Comment H [Auto mated message] code = 5964-2) The system wh ich generated this result transmitted ref erence range: 10.1 - 1 2.6 Seconds. The reference range was not used to int erpret this result as normal/abnormal . INR (test code = 6301-6) 1.4 Nor mal INR <1.1; Warfarin Therap eutic range 2.0 to 3. 0 or 2.5 to 3.5, dep ending upon the indica tions. Lab Interpretation (test Abnormal code = 34595-0) [facility] 01:52:29 Test Item Value Reference Range Interpretation Comments POCT GLU (test code = 5470120717) 197 mg/dL 70-110 H Lab Interpretation (test code = Abnormal 70254-2) [facility] GLUCOSE (AUTOMATED)2022-10-06 22:19:34 Test Item Value Reference Range Interpretation Comments POCT GLU (test code = 9993975394) 137 mg/dL 70-110 H Lab Interpretation (test code = Abnormal 74745-9) [facility] GLUCOSE (AUTOMATED)2022-10-06 17:36:01 Test Item Value Reference Range Interpretation Comments POCT GLU (test code = 9148781412) 140 mg/dL 70-110 H Lab Interpretation (test code = Abnormal 18837-9) [facility] GLUCOSE (AUTOMATED)2022-10-06 12:46:08 Test Item Value Reference Range Interpretation Comments POCT GLU (test code = 3607856756) 129 mg/dL 70-110 H Lab Interpretation (test code = Abnormal 41369-8) [facility] WITH [id number] 11:20:09 Test Item Value Reference Range Interpretation Comments WBC (test code = 3.61 See_Comment L [Automated 6690-2) message] The sy stem which generated this result transmitted reference range : 4.20 - 10.70 10*3/?L. The reference range was not used to interpret this result as normal/abnormal . RBC (test code = 3.78 See_Comment L [Automated 789-8) message] The sy stem which generated this result transmitted reference range : 4.26 - 5.52 10*6/?L. The reference range was not used to interpret this result as normal/abnormal . HGB (test code = 11.2 g/dL 12.2-16.4 L 718-7) HCT (test code = 35.4 % 38.4-49.3 L 4544-3) MCV (test code = 93.7 fL 81.7-95.6 787-2) MCH (test code = 29.6 pg 26.1-32.7 785-6) MCHC (test code = 31.6 g/dL 31.2-35.0 786-4) RDW-SD (test code = 51.8 fL 38.5-51.6 H 49026-9) RDW-CV (test code = 15.0 % 12.1-15.4 788-0) PLT (test code = 73 See_Comment L [Automated 777-3) message] The sy stem which generated this result transmitted reference range : 150 - 328 10*3/ ?L. The reference r brandin was not used to interpret this result as normal/abnormal . MPV (test code = 12.7 fL 9.8-13.0 48289-7) IPF % (test code = 8.3 % 1.2-10.7 Platelet count 6252485683) measured by fluorescence method. NRBC/100 WBC (test 0.0 See_Comment [Automat ed code = 6619517927) message] The system which generated this result transmitted reference range : 0.0 - 10.0 /100 WBCs. The refer ence range was not u sed to interpret th is result as normal/abnormal . NRBC x10^3 (test code See_Comment [Auto mated = 3127458319) message] The s ystem which generated this result transmitted reference range : 10*3/?L. The reference range was not used to interpret this result as normal/abnormal . GRAN MAT (NEUT) % 57.8 % (test code = 770-8) IMM GRAN % (test code 0.60 % = 3069910277) LYMPH % (test code = 22.2 % 736-9) MONO % (test code = 16.9 % 5905-5) EOS % (test code = 1.4 % 713-8) BASO % (test code = 1.1 % 706-2) GRAN MAT x10^3(ANC) 2.09 10*3/uL 1.99-6.95 (test code = 6948842792) IMM GRAN x10^3 (test 0.00-0.06 code = 2391950170) LYMPH x10^3 (test code 0.80 10*3/uL 1.09-3.23 L = 731-0) MONO x10^3 (test code 0.61 10*3/uL 0.36-1.02 = 742-7) EOS x10^3 (test code = 0.05 10*3/uL 0.06-0.53 L 711-2) BASO x10^3 (test code 0.04 10*3/uL 0.01-0.09 = 704-7) LG GRAN LYMPHS (test Rare Rare code = 1669799344) REACT LYMPHS (test Rare code = 7784448824) GIANT PLATELETS (test Present See_Comment A [Auto mated code = 5908-9) message] The system which generated this result transmitted reference range : (none). The reference range was not used to interpret this result as normal/abnormal . Lab Interpretation Abnormal (test code = 78876-3) [facility]20[facility] 11:15:24 Test Item Value Reference Range Interpretation Comments PHOSPHORUS (test code = 9004215124) 4.0 mg/dL 2.5-5.0 Lab Interpretation (test code = Normal 35930-5) [facility] 11:15:24 Test Item Value Reference Range Interpretation Comments MAGNESIUM (test code = 9302302461) 2.2 mg/dL 1.7-2.4 Lab Interpretation (test code = Normal 93684-1) [facility] (NA, K, CL, CO2, GLUCOSE, BUN, CREATININE, CA)2022-10-06 11:15:24 Test Item Value Reference Range Interpretation Comments NA (test code = 132 mmol/L 135-145 L 3688428947) K (test code = 4.9 mmol/L 3.5-5.0 1164044208) CL (test code = 97 mmol/L 98-108 L 7012850545) CO2 TOTAL (test code = 25 mmol/L 23-31 3102066245) AGAP (test code = 10 2-16 2828556266) BUN (test code = 60 mg/dL 7-23 H 8642904130) GLUCOSE (test code = 118 mg/dL 70-110 H 9941911550) CREATININE (test code = 2.74 mg/dL 0.60-1.25 H 2128232879) CALCIUM (test code = 8.4 mg/dL 8.6-10.6 L 2804941240) eGFR (test code = 22.8 mL/min/1.73m2 5422606575) JALEESA (test code = JALEESA) Association of Glomerular Filtration Rate (GFR) and Staging of Kidney Disease* + --+ --+ ------+| GFR (mL/min/1.73 m2) ?| With Kidney Damage ?| ?Without Kidney Damage+ --------+ --------+ +| ?>90 ?| ?Stage one ?| ? Normal ?+ ---+ ---+ -------+| ?60-89 ?| ?Stage two ?| ? Decreased GFR ? + --+ --+ ------+| ?30-59 ?| ?Stage three ?| ? Stage three ? + --+ --+ ------+| ?15-29 ?| ?Stage four ? | ? Stage four ?+ ---+ ---+ -------+| ?<15 (or dialysis) ? ?| ?Stage five ? | ? Stage five ?+ ---+ ---+ -------+ *Each stage assumes the associated GFR level has been in effect for at least three months. ?Stages 1 to 5, with or without kidney disease, indicate chronic kidney disease. Notes: Determination of stages one and two (with eGFR >59mL/min/1.73 m2) requires estimation of kidney damage for at least three months as defined by structural or functional abnormalities of the kidney, manifested by either:Pathological abnormalities or Markers of kidney damage (including abnormalities in the composition of the blood or urine or abnormalities in imaging tests). Lab Interpretation Abnormal (test code = 71365-9) [facility] GLUCOSE (AUTOMATED)2022-10-06 01:28:30 Test Item Value Reference Range Interpretation Comments POCT GLU (test code = 8747860042) 207 mg/dL 70-110 H Lab Interpretation (test code = Abnormal 80646-8) [facility] GLUCOSE (AUTOMATED)2022-10-05 22:04:20 Test Item Value Reference Range Interpretation Comments POCT GLU (test code = 7507779079) 202 mg/dL 70-110 H Lab Interpretation (test code = Abnormal 17567-0) [facility] GLUCOSE (AUTOMATED)2022-10-05 17:34:43 Test Item Value Reference Range Interpretation Comments POCT GLU (test code = 7686552223) 137 mg/dL 70-110 H Lab Interpretation (test code = Abnormal 92648-0) [facility] GLUCOSE (AUTOMATED)2022-10-05 14:08:09 Test Item Value Reference Range Interpretation Comments POCT GLU (test code = 6796619941) 113 mg/dL 70-110 H Lab Interpretation (test code = Abnormal 65625-2) [facility] GLUCOSE (AUTOMATED)2022-10-05 01:19:56 Test Item Value Reference Range Interpretation Comments POCT GLU (test code = 9520293938) 208 mg/dL 70-110 H Lab Interpretation (test code = Abnormal 99953-6) [facility] GLUCOSE (AUTOMATED)2022-10-04 22:33:14 Test Item Value Reference Range Interpretation Comments POCT GLU (test code = 286 mg/dL 70-110 H Notifi ed Provider [id number]) Lab Interpretation (test Abnormal code = 01180-4) [facility] GLUCOSE (AUTOMATED)2022-10-04 17:33:48 Test Item Value Reference Range Interpretation Comments POCT GLU (test code = 143 mg/dL 70-110 H Notifi ed Provider [id number]) Lab Interpretation (test Abnormal code = 94699-8) [facility] GLUCOSE (AUTOMATED)2022-10-04 13:27:49 Test Item Value Reference Range Interpretation Comments POCT GLU (test code = 2486340441) 137 mg/dL 70-110 H Lab Interpretation (test code = Abnormal 24283-5) [facility] GLUCOSE (AUTOMATED)2022-10-04 01:09:22 Test Item Value Reference Range Interpretation Comments POCT GLU (test code = 6006563410) 269 mg/dL 70-110 H Lab Interpretation (test code = Abnormal 47347-4) [facility] GLUCOSE (AUTOMATED)2022-10-03 23:29:51 Test Item Value Reference Range Interpretation Comments POCT GLU (test code = 2625101212) 172 mg/dL 70-110 H Lab Interpretation (test code = Abnormal 16824-6) [facility] LakeaPT (for use with Heparin Infusion)2022-10-03 22:40:45 Test Item Value Reference Range Interpretation Comments APTT Patient (test code 111 See_Comment HH [Au tomated message] = 3173-2) The system [employer] generated this result transmitted ref erence range: 26 - 36 Seconds. The reference range was not used to int erpret this result as normal/abnormal . Lab Interpretation (test Abnormal code = 75417-7) [facility] GLUCOSE (AUTOMATED)2022-10-03 18:14:08 Test Item Value Reference Range Interpretation Comments POCT GLU (test code = 5589794402) 197 mg/dL 70-110 H Lab Interpretation (test code = Abnormal 09364-8) [facility] GLUCOSE (AUTOMATED)2022-10-03 17:23:30 Test Item Value Reference Range Interpretation Comments POCT GLU (test code = 1554226108) 183 mg/dL 70-110 H Lab Interpretation (test code = Abnormal 19066-2) [facility] LakeProthrombin Time / [id number] 14:00:40 Test Item Value Reference Range Interpretation Comments PROTIME PATIENT (test 18.5 See_Comment H [Auto mated message] code = 5964-2) The system [employer] generated this result transmitted ref erence range: 10.1 - 1 2.6 Seconds. The reference range was not used to int erpret this result as normal/abnormal . INR (test code = 6301-6) 1.6 Nor mal INR <1.1; Warfarin Therap eutic range 2.0 to 3. 0 or 2.5 to 3.5, dep ending upon the indica tions. Lab Interpretation (test Abnormal code = 23303-7) [facility]PTT2023-04-15 14:00:40 Test Item Value Reference Range Interpretation Comments APTT Patient (test code 37 See_Comment H [Au tomated message] = 3173-2) The system [employer] generated this result transmitted ref erence range: 26 - 36 Seconds. The reference range was not used to int erpret this result as normal/abnormal . Lab Interpretation (test Abnormal code = 24080-2) [facility] GLUCOSE (AUTOMATED)2022-10-03 12:27:55 Test Item Value Reference Range Interpretation Comments POCT GLU (test code = 9820152957) 169 mg/dL 70-110 H Lab Interpretation (test code = Abnormal 38334-8) [facility] LakeProthrombin Time / [id number] 11:09:32 Test Item Value Reference Range Interpretation Comments PROTIME PATIENT (test 17.8 See_Comment H [Auto mated message] code = 5964-2) The system [employer] generated this result transmitted ref erence range: 10.1 - 1 2.6 Seconds. The reference range was not used to int erpret this result as normal/abnormal . INR (test code = 6301-6) 1.5 Nor mal INR <1.1; Warfarin Therap eutic range 2.0 to 3. 0 or 2.5 to 3.5, dep ending upon the indica tions. Lab Interpretation (test Abnormal code = 13311-1) [facility] GLUCOSE (AUTOMATED)2022-10-03 01:58:48 Test Item Value Reference Range Interpretation Comments POCT GLU (test code = 3832484204) 157 mg/dL 70-110 H Lab Interpretation (test code = Abnormal 70649-9) [facility]TT2023-[facility]-14 21:55:32 Test Item Value Reference Range Interpretation Comments APTT Patient (test code 37 See_Comment H [Au tomated message] = 3173-2) The system [employer] generated this result transmitted ref erence range: 26 - 36 Seconds. The reference range was not used to int erpret this result as normal/abnormal . Lab Interpretation (test Abnormal code = 54139-1) [facility] GLUCOSE (AUTOMATED)2022-10-02 21:06:48 Test Item Value Reference Range Interpretation Comments POCT GLU (test code = 3579832433) 124 mg/dL 70-110 H Lab Interpretation (test code = Abnormal 75024-0) [facility] GLUCOSE (AUTOMATED)2022-10-02 13:15:12 Test Item Value Reference Range Interpretation Comments POCT GLU (test code = 1439837872) 140 mg/dL 70-110 H Lab Interpretation (test code = Abnormal 60407-4) [facility] GLUCOSE (AUTOMATED)2022-10-02 11:00:46 Test Item Value Reference Range Interpretation Comments POCT GLU (test code = 6299991259) 138 mg/dL 70-110 H Lab Interpretation (test code = Abnormal 75158-9) [facility] GLUCOSE (AUTOMATED)2022-10-02 01:48:18 Test Item Value Reference Range Interpretation Comments POCT GLU (test code = 9438289887) 231 mg/dL 70-110 H Lab Interpretation (test code = Abnormal 95680-3) [facility] GLUCOSE (AUTOMATED)2022-10-01 22:34:08 Test Item Value Reference Range Interpretation Comments POCT GLU (test code = 1531561436) 273 mg/dL 70-110 H Lab Interpretation (test code = Abnormal 72454-5) [facility] Lake[facility]BC ANTIBODY (IGM & IGG)2022-10-01 18:21:01 Test Item Value Reference Range Interpretation Comments HBC (test code = 4161705307) Negative HBC Semi-Quantitative (test code = 3.91 9083590629) [facility] ANTIBODY (IGM & IGG)2022-10-01 18:21:01 Test Item Value Reference Range Interpretation Comments HBC (test code = 5008065638) Negative HBC Semi-Quantitative (test code = 3.91 5752087662) [facility] GLUCOSE (AUTOMATED)2022-10-01 12:41:42 Test Item Value Reference Range Interpretation Comments POCT GLU (test code = 3492132547) 147 mg/dL 70-110 H Lab Interpretation (test code = Abnormal 40371-0) [facility] GLUCOSE (AUTOMATED)2022-10-01 02:11:45 Test Item Value Reference Range Interpretation Comments POCT GLU (test code = 1676311202) 240 mg/dL 70-110 H Lab Interpretation (test code = Abnormal 87856-1) [facility] Lake[facility]atitis B Surface Antigen (HBsAg)2022-09-30 23:04:50 Test Item Value Reference Range Interpretation Comments HBsAg Semi-Quantitative (test code = 0.05 Negative 5195-3) [facility]igen (HBsAg)2022-09-30 23:04:50 Test Item Value Reference Range Interpretation Comments HBsAg Semi-Quantitative (test code = 0.05 Negative 5195-3) [facility] LakeTransthoracic echo (TTE)2022-09-30 21:09:30 Test Item Value Reference Range Interpretation Comments Height (test code = 68 in 0036848233) Weight (test code = 149 lbs 3769922588) Systolic BP (test code = 130 mmHg 3655806006) Diastolic BP (test code 51 mmHg = 3509914489) Heart Rate (test code = 72 bpm 6813348450) LVOT stroke volume (test 74.70 cm3 code = 2756582991) EF(Teich) (test code = 8.40 % 1403061407) LVIDD (test code = 4.70 cm 9807621749) LVIDS (test code = 4.50 cm 6713950131) Left Ventricular End 92.1 mL Systolic Volume by Teichholz Method (test code = 1847690) Left Ventricular End 100.5 mL Diastolic Volume by Teichholz Method (test code = 7178097) IVS (test code = 0.89 cm 3941481374) LVPWD (test code = 0.94 cm 6007470959) LVOT diameter (test code 2.32 cm = 1566167799) LVOT area (test code = 4.20 cm2 7970397408) FS (test code = 4 % 3119151798) MV Peak E Niraj (test code 112.3 cm/s = 1219278468) MV Peak A Niraj (test code 63.4 cm/s = 8695811432) E/A ratio (test code = 1.77 ratio 7514114651) E wave decelartion time 0.12 s (test code = 5803132445) LA volume (BP) (test 76.0 mL code = 7654170049) LVOT peak niraj (test code 77.1 cm/s = 3993079148) LVOT mn grad (test code 1.2 mmHg = 4496492579) LA size (test code = 5.0 cm 3856697070) LAV(MOD-sp2) (test code 85.90 mL = 4834441382) LAV(MOD-sp4) (test code 69.00 mL = 0626249545) Tapse (test code = 1.78 cm 9960939708) Aortic valve mean 168.2 cm/s velocity (test code = 4073824270) Ao peak niraj (test code = 245.6 cm/s 7640495936) Ao VTI (test code = 52.1 cm 6563758405) AV LVOT peak gradient 2.38 mmHg (test code = 1074603637) LVOT peak VTI (test code 17.6 cm = 6726780800) AV area by cont VTI 1.4 cm2 (test code = 5235600873) AV area peak niraj (test 1.3 cm2 code = 2706739986) LV V1 mean (test code = 49.60 cm/s 3719623524) Ao max PG (test code = 24.10 mm[Hg] 5131777298) MV Prop V (test code = 75.30 cm/s 3347589636) TR Peak Niraj (test code = 199.5 cm/s 6131993019) Triscuspid Valve 15.9 mmHg Regurgitation Peak Gradient (test code = 7178535002) Ao root diam (test code 3.30 cm = 5064239936) AV peak gradient (test 24.1 mmHg code = 8970847074) AV valve area (test code 1.43 cm2 = 8983517566) AV mean gradient (test 12.9 mmHg code = 2956088555) Aortic root (test code = 3.3 cm 5590685285) Ao root annulus (test 3.3 cm code = 1839437342) PW (test code = 0.94 cm 0.6-1.7 8188132250) EF - 2D (test code = 8.40 % 08722150) Interventricular Septum 0.89 cm Diastolic Thickness by 2D (test code = 9824141) LA Volume Index (BP) 42.1 mL/m2 (test code = 1652609525) BSA (test code = 1.80 m2 4546833614) MV mean gradient (test 69.8 mmHg code = 7008411110) MV peak gradient (test 122.7 mmHg code = 5745129622) MV pk niraj (test code = 553.8 cm/s 7481750577) MV valve area by 0.40 cm2 continuity eq (test code = 4607930650) MV VTI (test code = 184.4 cm 4976151223) MV V2 mean (test code = 390.90 cm/s 7367492507) IVC Diam Exp(MM) (test 2.27 cm code = 5289098547) Radiology Study observation (narrative) (test code = 21607-8) JALEESA (test code = JALEESA) ?Left?Ventricle: Left ventricle is mildly dilated. Normal wall thickness. Severe global hypokinesis present. Severely reduced systolic function with a visually estimated EF of 15 - 20%. Diastolic dysfunction. ?Right?Ventricle: Right ventricle is normal in size and function. Normal wall thickness. Normal systolic function. There is a pacemaker lead in the right ventricle. ?Mitral?Valve: Mitral valve is normal in structure and function. Mild to moderate transvalvular regurgitation with an eccentrically directed jet. Mild stenosis. ?Aortic?Valve: Aortic valve is normal in structure and function. Consistent with moderate aortic stenosis. ?IVC/SVC: IVC diameter is greater than 21 mm and decreases less than 50% during inspiration; therefore the estimated right atrial pressure is elevated (~15 mmHg). Left VentricleLeft ventricle is mildly dilated. Normal wall thickness. Severe global hypokinesis present. Severely reduced systolic function with a visually estimated EF of 15 - 20%. Diastolic dysfunction.Right VentricleRight ventricle is normal in size and function. Normal wall thickness. Normal systolic function. There is a pacemaker lead in the right ventricle.Left AtriumLeft atrium size is normal.Right AtriumRight atrium size is normal.IVC/SVCIVC diameter is greater than 21 mm and decreases less than 50% during inspiration; therefore the estimated right atrial pressure is elevated (~15 mmHg).Mitral ValveMitral valve is normal in structure and function. Mild to moderate transvalvular regurgitation with an eccentrically directed jet. Mild stenosis.Tricuspid ValveTricuspid valve is normal size and function. Trace transvalvular regurgitation. No stenosis.Aortic ValveAortic valve is normal in structure and function. Consistent with moderate aortic stenosis.Pulmonic ValvePulmonic valve is normal in structure and function.Ascending AortaNormal sized aorta.PericardiumThe pericardium is normal. No pericardial effusion.Study DetailsStudy quality was good. A complete echocardiogram was performed using 2D, color flow Doppler and spectral Doppler. The apical, parasternal and subcostal views were obtained. Lumason ultrasound enhancing agent used. [facility]20[facility]30 20:49:55 Test Item Value Reference Range Interpretation Comments POCT GLU (test code = 9753127595) 264 mg/dL 70-110 H Lab Interpretation (test code = Abnormal 18802-6) [facility] Lake[facility]IN2023-[facility]-12 20:42:02 Test Item Value Reference Range Interpretation Comments DIGOXIN (test code = 0.7 ng/mL 0.8-1.6 L 3189366943) JALEESA (test code = JALEESA) Arrythmias: ?1.5 - 2.0 ng/mLToxic Range: ? Greater than or equal to 2.4 ng/mL Lab Interpretation (test Abnormal code = 61855-2) [facility] GLUCOSE (AUTOMATED)2022-09-30 16:47:27 Test Item Value Reference Range Interpretation Comments POCT GLU (test code = 1477397531) 232 mg/dL 70-110 H Lab Interpretation (test code = Abnormal 46588-0) [facility] GLUCOSE (AUTOMATED)2022-09-30 12:57:24 Test Item Value Reference Range Interpretation Comments POCT GLU (test code = 1316524654) 120 mg/dL 70-110 H Lab Interpretation (test code = Abnormal 86878-2) [facility] Surface Antibody (HBsAb)2022-09-30 05:54:19 Test Item Value Reference Range Interpretation Comments HBsAB (test code = Negative 1245133895) HBsAb 0.00 mIU/mL Semi-Quantitative (test code = 4380613439) JALEESA (test code = Interpretation: JALEESA) ?Hepatitis B Surface Antibody ? Negative - Patient is considered to be not immune to infection with HBV. ? ? Positive - Anti-HBs detected at greater than or equal to 12 mIU/mL. ?Patient is considered to be immune to infection with HBV. ? [facility] ([facility]BsAb)2022-09-30 05:54:19 Test Item Value Reference Range Interpretation Comments HBsAB (test code = Negative 7005544380) HBsAb 0.00 mIU/mL Semi-Quantitative (test code = 2710210122) JALEESA (test code = Interpretation: JALEESA) ?Hepatitis B Surface Antibody ? Negative - Patient is considered to be not immune to infection with HBV. ? ? Positive - Anti-HBs detected at greater than or equal to 12 mIU/mL. ?Patient is considered to be immune to infection with HBV. ? [facility] GLUCOSE (AUTOMATED)2022-09-30 02:37:42 Test Item Value Reference Range Interpretation Comments POCT GLU (test code = 6436581492) 141 mg/dL 70-110 H Lab Interpretation (test code = Abnormal 87454-5) [facility] WITH [id number] 22:08:56 Test Item Value Reference Range Interpretation Comments WBC (test code = 3.66 See_Comment L [Automated 6690-2) message] The sy stem which generated this result transmitted reference range : 4.20 - 10.70 10*3/?L. The reference range was not used to interpret this result as normal/abnormal . RBC (test code = 3.68 See_Comment L [Automated 789-8) message] The sy stem which generated this result transmitted reference range : 4.26 - 5.52 10*6/?L. The reference range was not used to interpret this result as normal/abnormal . HGB (test code = 10.9 g/dL 12.2-16.4 L 718-7) HCT (test code = 33.5 % 38.4-49.3 L 4544-3) MCV (test code = 91.0 fL 81.7-95.6 787-2) MCH (test code = 29.6 pg 26.1-32.7 785-6) MCHC (test code = 32.5 g/dL 31.2-35.0 786-4) RDW-SD (test code = 50.6 fL 38.5-51.6 72147-4) RDW-CV (test code = 15.2 % 12.1-15.4 788-0) PLT (test code = 59 See_Comment L [Automated 777-3) message] The sy stem which generated this result transmitted reference range : 150 - 328 10*3/ ?L. The reference r brandin was not used to interpret this result as normal/abnormal . MPV (test code = Not Measure d 49467-4) IPF % (test code = 7.2 % 1.2-10.7 Platelet count [id number]) measured by fluorescence method. NRBC/100 WBC (test 0.0 See_Comment [Automat ed code = 1450377275) message] The system which generated this result transmitted reference range : 0.0 - 10.0 /100 WBCs. The refer ence range was not u sed to interpret th is result as normal/abnormal . NRBC x10^3 (test code See_Comment [Auto mated = 3166718303) message] The s ystem which generated this result transmitted reference range : 10*3/?L. The reference range was not used to interpret this result as normal/abnormal . GRAN MAT (NEUT) % 65.3 % (test code = 770-8) IMM GRAN % (test code 0.30 % = 3923553891) LYMPH % (test code = 19.4 % 736-9) MONO % (test code = 13.4 % 5905-5) EOS % (test code = 1.1 % 713-8) BASO % (test code = 0.5 % 706-2) GRAN MAT x10^3(ANC) 2.39 10*3/uL 1.99-6.95 (test code = 1440103792) IMM GRAN x10^3 (test 0.00-0.06 code = 1629397303) LYMPH x10^3 (test code 0.71 10*3/uL 1.09-3.23 L = 731-0) MONO x10^3 (test code 0.49 10*3/uL 0.36-1.02 = 742-7) EOS x10^3 (test code = 0.04 10*3/uL 0.06-0.53 L 711-2) BASO x10^3 (test code 0.01-0.09 = 704-7) Lab Interpretation Abnormal (test code = 37148-7) [facility] 21:56:21 Test Item Value Reference Range Interpretation Comments POCT GLU (test code = 0333302397) 253 mg/dL 70-110 H Lab Interpretation (test code = Abnormal 06318-3) [facility] METABOLIC PANEL (NA, K, CL, CO2, GLUCOSE, BUN, CREATININE, CA)2022-09-29 21:47:32 Test Item Value Reference Range Interpretation Comments NA (test code = 132 mmol/L 135-145 L 2505199784) K (test code = 3.5 mmol/L 3.5-5.0 0959759807) CL (test code = 99 mmol/L 98-108 0079095584) CO2 TOTAL (test code = 18 mmol/L 23-31 L 4054628945) AGAP (test code = 15 2-16 7440173018) BUN (test code = 172 mg/dL 7-23 H 6152151308) GLUCOSE (test code = 285 mg/dL 70-110 H 1936774253) CREATININE (test code = 5.23 mg/dL 0.60-1.25 H 8269612775) CALCIUM (test code = 7.9 mg/dL 8.6-10.6 L 8485830051) eGFR (test code = 10.8 mL/min/1.73m2 1981224385) JALEESA (test code = JALEESA) Association of Glomerular Filtration Rate (GFR) and Staging of Kidney Disease* + --+ --+ ------+| GFR (mL/min/1.73 m2) ?| With Kidney Damage ?| ?Without Kidney Damage+ --------+ --------+ +| ?>90 ?| ?Stage one ?| ? Normal ?+ ---+ ---+ -------+| ?60-89 ?| ?Stage two ?| ? Decreased GFR ? + --+ --+ ------+| ?30-59 ?| ?Stage three ?| ? Stage three ? + --+ --+ ------+| ?15-29 ?| ?Stage four ? | ? Stage four ?+ ---+ ---+ -------+| ?<15 (or dialysis) ? ?| ?Stage five ? | ? Stage five ?+ ---+ ---+ -------+ *Each stage assumes the associated GFR level has been in effect for at least three months. ?Stages 1 to 5, with or without kidney disease, indicate chronic kidney disease. Notes: Determination of stages one and two (with eGFR >59mL/min/1.73 m2) requires estimation of kidney damage for at least three months as defined by structural or functional abnormalities of the kidney, manifested by either:Pathological abnormalities or Markers of kidney damage (including abnormalities in the composition of the blood or urine or abnormalities in imaging tests). Lab Interpretation Abnormal (test code = 06870-1) [facility] LakeProthrombin Time / [id number] 21:43:01 Test Item Value Reference Range Interpretation Comments PROTIME PATIENT (test 84.6 See_Comment H [Auto mated message] code = 5964-2) The system [employer] generated this result transmitted ref erence range: 10.1 - 1 2.6 Seconds. The reference range was not used to int erpret this result as normal/abnormal . INR (test code = 6301-6) 7.2 HH Nor mal INR <1.1; Warfarin Therap eutic range 2.0 to 3. 0 or 2.5 to 3.5, dep ending upon the indica tions. Lab Interpretation (test Abnormal code = 59389-4) [facility] LakePhosphorus [id number] 21:34:49 Test Item Value Reference Range Interpretation Comments PHOSPHORUS (test code = 1548569733) 7.1 mg/dL 2.5-5.0 H Lab Interpretation (test code = Abnormal 30249-6) [facility] LakeMagnesium [id number] 21:34:49 Test Item Value Reference Range Interpretation Comments MAGNESIUM (test code = 5964756507) 3.4 mg/dL 1.7-2.4 H Lab Interpretation (test code = Abnormal 00138-3) [facility] LakeaPTT2023-04-11 21:29:51 Test Item Value Reference Range Interpretation Comments APTT Patient (test code 66 See_Comment H [Au tomated message] = 3173-2) The system [employer] generated this result transmitted ref erence range: 26 - 36 Seconds. The reference range was not used to int erpret this result as normal/abnormal . Lab Interpretation (test Abnormal code = 28580-8) [facility] PT/INR(COAGUCHEK)2022-09-08 16:03:00 Test Item Value Reference Range Interpretation Comments POCT PT/INR (test code = 1606) 2.7 0.8-1.4 A POCT PT/SEC (test code = 3430) 32.8 SEC Lab Interpretation (test code = Abnormal 06215-7) [facility] PT/INR(COAGUCHEK)2022-09-08 16:03:00 Test Item Value Reference Range Interpretation Comments POCT PT/INR (test code = 1606) 2.7 0.8-1.4 A POCT PT/SEC (test code = 3430) 32.8 SEC Lab Interpretation (test code = Abnormal 86765-8) [facility] TOTAL HEMOGLOBIN [id number] 13:49:00 Test Item Value Reference Range Interpretation Comments POCT HGB (test code = 3961) 10.6 g/dL 13-18 A Lab Interpretation (test code = Abnormal 39386-4) [facility] TOTAL HEMOGLOBIN [id number] 13:49:00 Test Item Value Reference Range Interpretation Comments POCT HGB (test code = 3961) 10.6 g/dL 13-18 A Lab Interpretation (test code = Abnormal 12588-0) [facility] PT/INR(COAGUCHEK)2022-08-26 17:05:00 Test Item Value Reference Range Interpretation Comments POCT PT/INR (test code = 1606) 1.9 0.8-1.4 A POCT PT/SEC (test code = 3430) 23.2 SEC Lab Interpretation (test code = Abnormal 39865-8) [facility] TOTAL HEMOGLOBIN [id number] 20:27:00 Test Item Value Reference Range Interpretation Comments POCT HGB (test code = 3961) 10.2 g/dL 13-18 A Lab Interpretation (test code = Abnormal 80352-4) [facility] TOTAL HEMOGLOBIN [id number] 20:27:00 Test Item Value Reference Range Interpretation Comments POCT HGB (test code = 3961) 10.2 g/dL 13-18 A Lab Interpretation (test code = Abnormal 94059-3) [facility] TOTAL HEMOGLOBIN [id number] 20:27:00 Test Item Value Reference Range Interpretation Comments POCT HGB (test code = 3961) 10.2 g/dL 13-18 A Lab Interpretation (test code = Abnormal 95182-1) [facility] LakeINTACT PTH CALCIUM [id number] 19:01:39 Test Item Value Reference Range Interpretation Comments PTH-INTACT (test code = 251.8 pg/mL 12.0-88.0 H 6043955782) PTH-CA Interpretation Furthe r clinical (test code = 2689135628) ignacio a needed for interpretation. CALCIUM (test code = 8.1 mg/dL 8.6-10.6 L 0991252455) Lab Interpretation (test Abnormal code = 79737-1) [facility] LakeHGBA1C2023-02-16 18:26:34 Test Item Value Reference Range Interpretation Comments HGB A1C (test code = 6.0 % 4.0-5.7 H 4548-4) JALEESA (test code = JALEESA) Reference RangesNormal: <5.7%Prediabetes: 5.7 - 6.4%Diabetes: > 6.5% Lab Interpretation (test Abnormal code = 62311-4) [facility] PT/INR(COAGUCHEK)2022-08-03 16:38:00 Test Item Value Reference Range Interpretation Comments POCT PT/INR (test code = 1606) 2.0 0.8-1.4 A POCT PT/SEC (test code = 3430) 23.9 SEC Lab Interpretation (test code = Abnormal 02804-1) [facility] TOTAL HEMOGLOBIN [id number] 21:22:00 Test Item Value Reference Range Interpretation Comments POCT HGB (test code = 3961) 10.3 g/dL 13-18 A Lab Interpretation (test code = Abnormal 05455-1) [facility] TOTAL HEMOGLOBIN [id number] 16:22:00 Test Item Value Reference Range Interpretation Comments POCT HGB (test code = 3961) 8.9 g/dL 13-18 A Lab Interpretation (test code = Abnormal 42266-9) [facility] TOTAL HEMOGLOBIN [id number] 23:02:00 Test Item Value Reference Range Interpretation Comments POCT HGB (test code = 3961) 8.0 g/dL 13-18 A Lab Interpretation (test code = Abnormal 72010-4) [facility] PT/INR(COAGUCHEK)2022-06-30 17:37:00 Test Item Value Reference Range Interpretation Comments POCT PT/INR (test code = 1606) 0.8-1.4 A POCT PT/SEC (test code = 3430) SEC Lab Interpretation (test code = Abnormal 94880-0) [facility] TOTAL HEMOGLOBIN [id number] 17:42:00 Test Item Value Reference Range Interpretation Comments POCT HGB (test code = 3961) 8.6 g/dL 13-18 A Lab Interpretation (test code = Abnormal 47024-1) [facility] PT/INR(COAGUCHEK)2022-06-18 16:09:00 Test Item Value Reference Range Interpretation Comments POCT PT/INR (test code = 1606) 0.8-1.4 A POCT PT/SEC (test code = 3430) SEC Lab Interpretation (test code = Abnormal 11752-6) [facility] TOTAL HEMOGLOBIN [id number] 17:15:00 Test Item Value Reference Range Interpretation Comments POCT HGB (test code = 3961) 9.7 g/dL -18 A Lab Interpretation (test code = Abnormal 85243-4) [facility] PT/INR(COAGUCHEK)2022-06-05 15:52:00 Test Item Value Reference Range Interpretation Comments POCT PT/INR (test code = 1606) 0.8-1.4 POCT PT/SEC (test code = 3430) SEC Lab Interpretation (test code = Abnormal 72887-8) [facility] LakeType and Screen - This is a pre-surgical type and screen. ONCE [id number] 13:46:38 Test Item Value Reference Range Interpretation Comments ABO & RH (test code A Positive Performe d at [facility] = 20) Laboratory [facility] [place], [place] [address]Toll Free: [phone] A No. [id number] IAT (test code = Negative Performed a t [facility] 1185) Laboratory [facility] [place], [place] [address]Toll Free: [phone] A No. [id number] [facility] Lake[facility] Screen - This is a pre-surgical type and screen. ONCE [id number] 13:46:38 Test Item Value Reference Range Interpretation Comments ABO & RH (test code A Positive Performe d at [facility] = 20) Laboratory [facility] [place] [address]Toll Free: [phone] A No. [id number] IAT (test code = Negative Performed a t [facility] 1185) Laboratory [facility] [place], [place] [id number] Free: [phone] A No. [id number] [facility] PT/INR(COAGUCHEK)2022-05-18 17:11:00 Test Item Value Reference Range Interpretation Comments POCT PT/INR (test code = 1606) 0.8-1.4 POCT PT/SEC (test code = 3430) SEC Lab Interpretation (test code = Abnormal 47344-4) [facility] TOTAL HEMOGLOBIN [id number] 17:51:00 Test Item Value Reference Range Interpretation Comments POCT HGB (test code = 3961) 12.1 g/dL 13-18 A Lab Interpretation (test code = Abnormal 33681-8) [facility] PT/INR(COAGUCHEK)2022-04-27 17:03:00 Test Item Value Reference Range Interpretation Comments POCT PT/INR (test code = 1606) 0.8-1.4 A POCT PT/SEC (test code = 3430) SEC Lab Interpretation (test code = Abnormal 06881-7) [facility] TOTAL HEMOGLOBIN [id number] 16:53:00 Test Item Value Reference Range Interpretation Comments POCT HGB (test code = 3961) 10.6 g/dL 13-18 A Lab Interpretation (test code = Abnormal 92851-5) [facility] PT/INR(COAGUCHEK)2022-04-15 15:49:00 Test Item Value Reference Range Interpretation Comments POCT PT/INR (test code = 1606) 0.8-1.4 A POCT PT/SEC (test code = 3430) SEC Lab Interpretation (test code = Abnormal 79495-5) [facility] TOTAL HEMOGLOBIN [id number] 18:23:00 Test Item Value Reference Range Interpretation Comments POCT HGB (test code = 3961) 10.9 g/dL 13-18 A Lab Interpretation (test code = Abnormal 75873-2) [facility] PT/INR(COAGUCHEK)2022-03-31 15:43:00 Test Item Value Reference Range Interpretation Comments POCT PT/INR (test code = 1606) 0.8-1.4 A POCT PT/SEC (test code = 3430) SEC Lab Interpretation (test code = Abnormal 34149-3) [facility] Test Item Value Reference Range Interpretation Comments MAGNESIUM (test code = 9432280452) 3.3 mg/dL 1.7-2.4 H Lab Interpretation (test code = Abnormal 91574-5) [facility]IUM2022-09-30 17:21:56 Test Item Value Reference Range Interpretation Comments MAGNESIUM (test code = 4083516192) 3.3 mg/dL 1.7-2.4 H Lab Interpretation (test code = Abnormal 39235-5) [facility] (NA, K, CL, CO2, GLUCOSE, BUN, CREATININE, CA)2022-03-20 17:21:36 Test Item Value Reference Range Interpretation Comments NA (test code = 138 mmol/L 135-145 3782020320) K (test code = 4.0 mmol/L 3.5-5 7779722733) CL (test code = 98 mmol/L 98-108 3446008197) CO2 TOTAL (test code = 23 mmol/L 23-31 0684850825) AGAP (test code = 2-16 H 4602929960) BUN (test code = 116 mg/dL 7-23 H 5628154567) GLUCOSE (test code = 156 mg/dL 70-110 H 8834731003) CREATININE (test code = 3.92 mg/dL 0.6-1.25 H 2794489825) CALCIUM (test code = 8.7 mg/dL 8.6-10.6 2816845166) eGFR (test code = mL/min/1.73m2 0931952440) JALEESA (test code = JALEESA) Association of Glomerular Filtration Rate (GFR) and Staging of Kidney Disease* + --+ --+ ------+| GFR (mL/min/1.73 m2) ?| With Kidney Damage ?| ?Without Kidney Damage+ --------+ --------+ +| ?>90 ?| ?Stage one ?| ? Normal ?+ ---+ ---+ -------+| ?60-89 ?| ?Stage two ?| ? Decreased GFR ? + --+ --+ ------+| ?30-59 ?| ?Stage three ?| ? Stage three ? + --+ --+ ------+| ?15-29 ?| ?Stage four ? | ? Stage four ?+ ---+ ---+ -------+| ?<15 (or dialysis) ? ?| ?Stage five ? | ? Stage five ?+ ---+ ---+ -------+ *Each stage assumes the associated GFR level has been in effect for at least three months. ?Stages 1 to 5, with or without kidney disease, indicate chronic kidney disease. Notes: Determination of stages one and two (with eGFR >59mL/min/1.73 m2) requires estimation of kidney damage for at least three months as defined by structural or functional abnormalities of the kidney, manifested by either:Pathological abnormalities or Markers of kidney damage (including abnormalities in the composition of the blood or urine or abnormalities in imaging tests). Lab Interpretation Abnormal (test code = 27927-6) [facility]PHOSPHORUS2022-09-30 17:21:36 Test Item Value Reference Range Interpretation Comments PHOSPHORUS (test code = 7481028093) 6.3 mg/dL 2.5-5 H Lab Interpretation (test code = Abnormal 53549-7) [facility] Lake[facility] METABOLIC PANEL (NA, K, CL, CO2, GLUCOSE, BUN, CREATININE, CA)2022-03-20 17:21:36 Test Item Value Reference Range Interpretation Comments NA (test code = 138 mmol/L 135-145 0885981297) K (test code = 4.0 mmol/L 3.5-5 5330207725) CL (test code = 98 mmol/L 98-108 1280677074) CO2 TOTAL (test code = 23 mmol/L 23-31 8820459902) AGAP (test code = 2-16 H 9126766276) BUN (test code = 116 mg/dL 7-23 H 6138801449) GLUCOSE (test code = 156 mg/dL 70-110 H 0129590979) CREATININE (test code = 3.92 mg/dL 0.6-1.25 H 8702952332) CALCIUM (test code = 8.7 mg/dL 8.6-10.6 7301478772) eGFR (test code = mL/min/1.73m2 2998847408) JALEESA (test code = JALEESA) Association of Glomerular Filtration Rate (GFR) and Staging of Kidney Disease* + --+ --+ ------+| GFR (mL/min/1.73 m2) ?| With Kidney Damage ?| ?Without Kidney Damage+ --------+ --------+ +| ?>90 ?| ?Stage one ?| ? Normal ?+ ---+ ---+ -------+| ?60-89 ?| ?Stage two ?| ? Decreased GFR ? + --+ --+ ------+| ?30-59 ?| ?Stage three ?| ? Stage three ? + --+ --+ ------+| ?15-29 ?| ?Stage four ? | ? Stage four ?+ ---+ ---+ -------+| ?<15 (or dialysis) ? ?| ?Stage five ? | ? Stage five ?+ ---+ ---+ -------+ *Each stage assumes the associated GFR level has been in effect for at least three months. ?Stages 1 to 5, with or without kidney disease, indicate chronic kidney disease. Notes: Determination of stages one and two (with eGFR >59mL/min/1.73 m2) requires estimation of kidney damage for at least three months as defined by structural or functional abnormalities of the kidney, manifested by either:Pathological abnormalities or Markers of kidney damage (including abnormalities in the composition of the blood or urine or abnormalities in imaging tests). Lab Interpretation Abnormal (test code = 11053-4) [facility]2022-[facility]-30 17:21:36 Test Item Value Reference Range Interpretation Comments PHOSPHORUS (test code = 5267524976) 6.3 mg/dL 2.5-5 H Lab Interpretation (test code = Abnormal 35843-4) [facility] WITHOUT [id number] 15:31:01 Test Item Value Reference Range Interpretation Comments WBC (test code = 6690-2) See_Comment [A utomated message] The system [employer] generated this result transmit alice reference range : 4.20 - 10.70 10*3/?L. The reference range was not used to interpret this result as normal/abnormal . RBC (test code = 789-8) See_Comment L [Au tomated message] The system [employer] generated this result transmit alice reference range : 4.26 - 5.52 10* 6/?L. The reference r brandin was not used to interpret this result as normal/abnormal . HGB (test code = 718-7) 9.3 g/dL 12.2-16.4 L HCT (test code = 4544-3) 29.6 % 38.4-49.3 L MCH (test code = 785-6) 30.4 pg 26.1-32.7 MCV (test code = 787-2) 96.7 fL 81.7-95.6 H MCHC (test code = 786-4) 31.4 g/dL 31.2-35 PLT (test code = 777-3) See_Comment L [Au tomated message] The system [facility] generated this result transmit alice reference range : 150 - 328 10*3/?L. The reference range was not used to interpret this result as normal/abnormal . MPV (test code = 12.1 fL 9.8-13 48528-1) RDW-CV (test code = 15.5 % 12.1-15.4 H 788-0) RDW-SD (test code = 54.6 fL 38.5-51.6 H 25406-3) NRBC x10^3 (test code = See_Comment [Au tomated message] 2357463321) The system [email or web address] generated this result transmit alice reference range : 10*3/?L. The reference range was not used to interpret this result as normal/abnormal . NRBC/100 WBC (test code See_Comment [Au tomated message] = 7084673019) The system [facility] generated this result transmit alice reference range : 0.0 - 10.0 /100 WBC s. The reference r brandin was not used to interpret this result as normal/abnormal . IPF % (test code = 8403084064) Lab Interpretation (test Abnormal code = 50206-1) [facility] WITHOUT [id number] 15:31:01 Test Item Value Reference Range Interpretation Comments WBC (test code = 6690-2) See_Comment [A utomated message] The system [facility] generated this result transmit alice reference range : 4.20 - 10.70 10*3/?L. The reference range was not used to interpret this result as normal/abnormal . RBC (test code = 789-8) See_Comment L [Au tomated message] The system [facility] generated this result transmit alice reference range : 4.26 - 5.52 10* 6/?L. The reference r brandin was not used to interpret this result as normal/abnormal . HGB (test code = 718-7) 9.3 g/dL 12.2-16.4 L HCT (test code = 4544-3) 29.6 % 38.4-49.3 L MCH (test code = 785-6) 30.4 pg 26.1-32.7 MCV (test code = 787-2) 96.7 fL 81.7-95.6 H MCHC (test code = 786-4) 31.4 g/dL 31.2-35 PLT (test code = 777-3) See_Comment L [Au tomated message] The system [facility] generated this result transmit alice reference range : 150 - 328 10*3/?L. The reference range was not used to interpret this result as normal/abnormal . MPV (test code = 12.1 fL 9.8-13 37331-4) RDW-CV (test code = 15.5 % 12.1-15.4 H 788-0) RDW-SD (test code = 54.6 fL 38.5-51.6 H 12049-2) NRBC x10^3 (test code = See_Comment [Au tomated message] 9823233445) The system [facility] generated this result transmit alice reference range : 10*3/?L. The reference range was not used to interpret this result as normal/abnormal . NRBC/100 WBC (test code See_Comment [Au tomated message] = 2501679467) The system [facility] generated this result transmit alice reference range : 0.0 - 10.0 /100 WBC s. The reference r brandin was not used to interpret this result as normal/abnormal . IPF % (test code = 9305907506) Lab Interpretation (test Abnormal code = 24899-3) [facility] Lake[facility] TOTAL HEMOGLOBIN [id number] 14:46:00 Test Item Value Reference Range Interpretation Comments POCT HGB (test code = 3961) 8.2 g/dL 13-18 A Lab Interpretation (test code = Abnormal 26490-6) [facility]
[2022-10-20] MEDS ORDERED: ACETAMINOPHEN 325 MG TABLET PO PRN (12:07)
[2022-10-20] MEDS ORDERED: POLYETHYL GLY 3350 17 GM/DOSE PO PRN (12:21)
[2022-10-20] MEDS ORDERED: XYZAL 5 MG PO PRN (12:22)
[2022-10-20] MEDS: HYDROCODONE/APAP 5/325 MG TAB PO PRN ×2 (13:20→23:17)
[2022-10-20] MEDS: MIDODRINE HCL 5 MG TABLET PO SCH ×2 (13:21→20:07)
[2022-10-20] MEDS ORDERED: SENOSIDES 8.6 MG TAB PO PRN (14:03)
[2022-10-20] MEDS ORDERED: GLUCAGON 1 MG/VIAL IM PRN (14:47)
[2022-10-20] MEDS ORDERED: D10W 250 ML BAG IV PRN (14:54)
[2022-10-20 15:41] LABS: Protime INR 1.24
[2022-10-20] MEDS: INSULIN -REGULAR HUMAN 50 UNIT/0.5 ML ML SQ SCH ×3 (16:30→20:07)
[2022-10-20] MEDS ORDERED: WARFARIN SODIUM 2.5 MG TAB PO SCH ×2 (17:00)
[2022-10-20] MEDS ORDERED: WARFARIN SODIUM 5 MG TAB PO SCH (17:00)
[2022-10-20] MEDS: SEVELAMER CARBONATE 800 MG TABLET PO SCH (17:17)
[2022-10-20] MEDS: WARFARIN SODIUM 2.5 MG TAB PO SCH (17:17)
[2022-10-20] MEDS: BUMETANIDE 1 MG TABLET PO SCH (17:17)
[2022-10-20] MEDS: ATORVASTATIN 80 MG TAB PO SCH (20:07)
--- NOTE | 2022-10-20 20:13 | P.CNS ---
Date of Consult: 10/20/22 Reason for Consult: ESRD Requesting Physician: Wilver Downey Chief Complaint: Hip Pain History of Present Illness: 76 yo WM admitted to [facility] 5th Floor for PT due to moderate, persistent right hip pain due to a fall at the dialysis unit last week. +Appetite +Edema Allergies prednisone Adverse Reaction (Unknown, Verified 10/20/22 16:34) Hives/Rash metoprolol Adverse Reaction (Verified 10/20/22 16:35) Nausea/Vomiting quetiapine [From Seroquel] Adverse Reaction (Verified 10/20/22 16:35) Nausea/Vomiting Home medications list reviewed: Yes Home Medications: Atorvastatin Calcium [Lipitor] 80 mg PO BEDTIME 10/20/22 Bumetanide [Bumex*] 1 mg PO 1700 10/20/22 Bumetanide [Bumex] 2 mg PO DAILY 10/20/22 Clopidogrel Bisulfate [Plavix*] 75 mg PO DAILY 10/20/22 Ferrous Sulfate [Feosol] 325 mg PO DAILY 10/20/22 Hydrocodone 5/APAP 325 [[place] 5/325*] 1 tab PO Q6H PRN 10/20/22 Levocetirizine Dihydrochloride [Xyzal] 5 mg PO BEDTIME PRN 10/20/22 Midodrine HCl [Proamatine*] 5 mg PO TID 10/20/22 Pantoprazole [Protonix Tab*] 40 mg PO DAILY 10/20/22 Sevelamer Carbonate [Renvela*] 800 mg PO TIDWM 10/20/22 Warfarin Sodium [Coumadin*] 2.5 mg PO DAILY 10/20/22 Warfarin Sodium [Coumadin*] 5 mg PO DAILY 10/20/22 - Past Medical/Surgical History Diabetic: Yes -: ESRD on HD MWF (Dr. Wilson) -: CAD/ VT/ Murmur -: DM II with PDR -: Chronic hypotension -: HLD -: Systolic Diastolic CHF -: PAD/ Carotid Stenosis -: Anemia -: CABG - Social History Alcohol use: No CD- Drugs: No Caffeine use: Yes Place of Residence: Home Review of Systems 10-point ROS is otherwise unremarkable General: Weakness Cardiovascular: Edema Musculoskeletal: Leg Pain Physical Examination Temp Pulse Resp BP Pulse Ox 96.8 F 72 16 131/70 99 10/20/22 10:41 10/20/22 17:17 10/20/22 13:20 10/20/22 17:17 10/20/22 13:20 General: In no apparent distress, Oriented x3, Cooperative HEENT: Atraumatic Neck: Supple Respiratory: Clear to auscultation bilaterally Cardiovascular: Regular rate/rhythm, Edema Gastrointestinal: Soft and benign, Non-distended Musculoskeletal: No clubbing, No contractures Integumentary: No rashes, No cyanosis Neurological: Normal speech Laboratory Data (last 24 hrs) 10/20/22 15:16: PT 13.6 H, INR 1.24 Imagings Data: Multiplanar CT imaging of the right hip was performed 10-15-22 Comminuted cortical interruption extends through the greater trochanter with no angular deformity. There is approximately 7 mm of medial distraction at the base of the lesser trochanter fracture bed with no other displacement appreciated. Chondrocalcinosis is seen at the symphysis pubis and right hip joint.Lumbosacral junction spondylosis and facet arthropathy are seen with multilevel discal vacuum phenomena. Vascular calcifications are present. Scattered dystrophic soft tissue calcifications are seen. There is diffuse subcutaneous fat stranding. Crystalline deposition is seen within the proximal common hamstring tendon complex. IMPRESSION Comminuted greater trochanter fracture with no extension into the lesser trochanter. Multiplanar multiweighted MR imaging of the right hip was performed. 10-15-22 BONE AND JOINT: Cortical medullary interruption with intramedullary T2 signal increase extends through the greater trochanter. There is no fracture extension into the lesser trochanter. Nonspecific mild T2 signal increase is seen within the left posterior superior ilium adjacent to the SI joint which may relate to red marrow reconversion or subtle osseous contusion. No joint effusion is present. Lumbosacral junction spondylosis and facet arthropathy are partially profiled. LIGAMENTS /TENDONS/SOFT TISSUES: Moderate intramuscular T2 signal increase is noted within the adductors bilaterally with moderate mild intramuscular T2 signal increase seen within the gluteus musculature. Edema tracks deep to the bilateral iliacus muscle bellies. There is fluid noted within the presacral tissues which is nonspecific. Thickening of the bladder wall is seen with bilateral bladder diverticula. IMPRESSION Greater trochanter fracture and osseous contusion with no fracture extension into the lesser trochanter. Posttraumatic muscle contusion/strain. Echocardiogram [id number] LeftVentricle: Left ventricle is mildly dilated. Normal wall thickness. Severe global hypokinesis present. Severely reduced systolic function with a visually estimated EF of 15 - 20%. Diastolic dysfunction. RightVentricle: Right ventricle is normal in size and function. Normal wall thickness. Normal systolic function. There is a pacemaker lead in the right ventricle. MitralValve: Mitral valve is normal in structure and function. Mild to moderate transvalvular regurgitation with an eccentrically directed jet. Mild stenosis. AorticValve: Aortic valve is normal in structure and function. Consistent with moderate aortic stenosis. IVC/SVC: IVC diameter is greater than 21 mm and decreases less than 50% during inspiration; therefore the estimated right atrial pressure is elevated (~15 mmHg). Left Heart Cath and Coronary Angiography Date of Service: 10/02/22 Indication/Diagnosis: heart failure Procedure Note: RCFA, 5F, JL4, JR4, RADHA, Manual. Findings: coronary dominance: bilaterally left main: distal heavy calcified 90% disease. LAD: ostial 90% disease, mid occluded. LCX: Ostial 90% disease, proximal, mid to distal mild LI. RCA: co-dominant, proximal 50% disease, mid diffuse 40% disease then mild LI Grafts: - CABRERA-LAD: Patent, fills mid to distal LAD. - SVG-OM: Non selective shot, but looks atretic. Lower abdominal aorta angiogram: Lower abdominal aorta: tortuous patent. REIA: Mid 99% occluded, heavy calcified. RCFA: mid 80% disease then occluded. LAMBERT: Patent LCFA: Patent Impression and Plan: - Significant distal LM disease. - Significant mid LAD disease, patent CABRERA-LAD - Significant LCX disease, atretic graft to OM. - Significant Right external iliac disease with significant tortuosity and heavy calcification. - Mild elevated filling pressure. - [facility] [place] [facility] PCI of LM into LCX (left groin vs RR access) - Continue aggressive medical treatment for CAD/HF. - Findings and plan of care discussed with patient and family. [id number] Right Extracranial There is scattered hard plaque and intimal thickening throughout the common carotid artery. There is a moderate amount of hard plaque noted in the bulb extending into the internal carotid artery with color flow disturbance, spectral broadening, and elevated peak velocity noted in the internal carotid artery; findings suggest 50-79% stenosis. The external carotid artery is patent. The vertebral artery is antegrade. Left Extracranial There is scattered hard plaque and intimal thickening throughout the common carotid artery. There is a moderate amount of hard plaque noted in the bulb extending into the internal carotid artery with color flow disturbance, spectral broadening, and elevated peak velocity noted in the internal carotid artery; findings suggest 50-79% stenosis. The external carotid artery is patent. The vertebral artery is antegrade. Interpretation Summary 50-79% BILATERAL INTERNAL CAROTID ARTERY STENOSIS. Interpretation Summary 06-20-21 Both lower extremity arterial systems were examined. Calcification arterial occlusive disease was identified in the lower extremity. The BILATERAL toe-brachial index was normal. Conclusions/Impression: ESRD on HD MWF -HD TIW Chronic Hypotension -Continue Midodrine Systolic Diastolic CHF, chronic LE Edema -Continue Bumex -HD with UF DM II with CKD -RISS Anemia in CKD -Continue oral iron CKD MBD -Continue Renvela Thank you kindly for the consultation
[2022-10-20] MEDS ORDERED: MANNITOL 25% 12.5 GM/50 ML VIAL IV PRN (20:49)
[2022-10-20] MEDS ORDERED: NA CHLORIDE 0.9% 1,000 ML IV PRN (20:49)
[2022-10-20] MEDS ORDERED: BUMETANIDE 1 MG TABLET PO SCH (21:00)
[2022-10-20] MEDS ORDERED: ALBUMIN HUMAN 25% 50 ML IV SCH (21:00)
--- NOTE | 2022-10-21 02:10 | HP ---
Date of Admission: 10/20/2022 Poov-Zk-Dkct Admission History And Physical Time Of Service: 1:30 p.m. Chief Complaint: "I fell and broke my left leg." History Of Present Illness: Mr. Miles is a 76-year-old patient with an extensive past medical hist ory of carotid stenosis; coronary artery disease status post multivessel bypass; paroxysmal atrial fi brillation; hypertension; dyslipidemia; diabetes mellitus; stage 4 kidney disease on hemodialysis on Wednesday, Wednesday, Wednesday; strokes with bilateral internal carotid artery stenosis; bilateral basal g anglia strokes; and thrombocytopenia who fell on 10/12/2022 and was found by his spouse. He actually was taken home, but began to have significant pain the next morning and was unable to get out of bed . He was brought by EMS to [facility] on 10/13, where imaging revealed a right intertrochan teric fracture of the proximal right femur. The patient's spouse requested a transfer to [facility] as his doctors are there. He was admitted there and had additional imaging, which revealed a mil dly displaced fracture of the right greater trochanter without intertrochanteric extension. The Orth opedic Service determined that no surgical intervention was required and the patient is to be kept we ightbearing as tolerated on the right lower extremity. Given his complicated history of end-stage re nal disease on hemodialysis; his thrombocytopenia; urinary tract infection, which is treated with Lev aquin and in addition, need for cardiac followup and cardiac monitoring, and in addition, his moderat e assistance requirement for all his transfers and mobilization, it is determined that he would be be st served at the inpatient rehabilitation unit and is therefore admitted to the unit for physical and occupational therapy. Past Medical History: As noted above, which includes carotid stenosis, congestive heart failure, chr onic kidney disease on hemodialysis, coronary artery disease, essential hypertension, normocytic anem ia, dyslipidemia, peripheral arterial disease, and diabetes mellitus type 2. Past Surgical History: Bilateral sequential total knee arthroplasty on 11/15/2014 and coronary arter y bypass grafting in 09/09. Family History: Noncontributory. Social History: No alcohol, tobacco, or IV drug use. Allergies: PREDNISONE, METOPROLOL, AND QUETIAPINE. Medications: Tylenol 650 every 6 hours as needed; [place] 5/325 every 6 hours as needed; aspirin 81 mg daily; Lipitor 80 mg at bedtime; Bumex 1 mg in the evening and 2 mg in the morning; Plavix 75 mg trupti ly; coenzyme Q10 200 mg daily; Colace 100 mg twice daily; Retacrit 10,000 units with hemodialysis on Wednesday, Wednesday, and Wednesday; vitamin D 50,000 units weekly; ferrous sulfate 325 mg daily; heparin 6 000 units with every hemodialysis; Levaquin 250 mg, to complete a total of 4 doses every 24 hours; mi dodrine 5 mg 3 times daily; Zofran 4 mg every 6 hours as needed; Protonix 40 mg daily; Senokot-S 8.6 mg daily; Renvela 800 mg 3 times daily; Coumadin Wednesday and 5 mg and on Wednesday, Wednesday, Wed, Wednesday 2.5 mg; folate that is Nephro-Ronnie 1 tablet daily. Laboratory Studies: White blood cell count 4.1, hemoglobin 9.9, hematocrit 30.9, and platelets 79. INR 1.24. Chemistries: Blood glucose ranged from 186 to 217. Sodium was 128 on the 25th, potassium 5.1, chloride 98, carbon dioxide 25, BUN 51, creatinine 3.31, glucose 105, calcium 8.4. Creatine ki nase 73. Troponin 1, high sensitivity 34.9. X-ray/imaging: Hip x-ray showed minimally displaced fracture of the right greater trochanter. Pelvi c x-ray 10/2022 with nondisplaced right intertrochanteric fracture. Also imaging of the back with L5 spondylosis, grade 1 spondylolisthesis. Chest x-ray on 10/13, stable chest. No radiographic eviden ce of acute cardiopulmonary processes. Review of Systems: Mr. Miles is doing well. He is in the shower. He has no significant complaints. No significant p ain at his right intertrochanteric surgical site. He is actually doing a shower and is able to lift the left leg on top of the right as he is cleaning his left leg while sitting on a bench. He appears to have no focal deficits. There is mild trace edema in the right lower extremity. Current Functional Status: Today he did ambulate 250 feet twice with contact guard assistance using a rolling walker. He did self propel a wheelchair 200 feet with minimum assistance with a physical t herapist in tow. Stand and pivot transfers done with [id number] assistance with a rolling w alker. With occupational therapy, donned and doffed clothes while seated, performed shower with mini mum assistance, he was able to use grab bars. He performed range of motion exercises with the bilate ral upper extremities. Rehabilitation And Medical Assessment And Plan: His rehabilitation impairment category is 07, orthop edic, lower extremity fracture. His rehabilitation impairment group code is 08.11, status post unila teral hip fracture. His etiologic diagnosis mildly displaced fracture of the right greater trochante r. Active comorbids are coronary artery disease, diabetes mellitus, end-stage renal disease on hemod ialysis, dyslipidemia, hypertension, thrombocytopenia, urinary tract infection, and peripheral artery disease. Plan: 1.He will have physical and occupational therapy 3 hours a day, 5 of 7 days. 2.For diabetes mellitus, we will continue monitoring glucose per protocol. We will administer insul in with mild sliding scale. 3.For hypertension, will be checked q. shift and antihypertensives adjusted appropriately. 4.For dyslipidemia, continue Lipitor. 5.For end-stage renal disease, hemodialysis 3 times weekly. 6.For urinary tract infection, continue levofloxacin. 7.For constipation, continue Senokot. 8.For his stroke and DVT risk reduction, continue warfarin with a target of 2.5 to 3.5 and will allo w just aspirin and discontinue Plavix. Impact Of His Comorbids: Given his end-stage renal disease, the physical therapy schedule will be ad justed around his hemodialysis so that continue smoothly. He will also continue with DVT risk reduct ion and therapeutic INR. Rehab Plan: 1.He will have physical and occupational therapy 3 hours a day, 5 of 7 days to improve his ability t o transfer to an independent level for upper and lower body dressing and also for independence to amb ulate 250 to 500 feet with independence, up and down 10 steps with independence, and perform cognitiv e function with independence. 2.He will have correction to address his medical needs, have blood draws, to facilitate his hem odialysis and schedule with hemodialysis team. The patient has a good understanding of the admission process to the inpatient rehabilitation unit. He has a potential to make improvement in all areas including his physical and occupational areas. H e will have, if need be, additional services from the Cardiology Service and Pulmonary Service. He a lready has Renal Service on board and Nutrition Service and Wound Care if need be. Given his complex medical condition and risk of further complications, rehabilitation cannot be safely or effectively provided at a lower level of care such as a correction. Barriers To Discharge: He does have end-stage renal disease on hemodialysis, but the therapy schedul e will be worked around that. Length Of Stay: Will be about 9 to 10 days. Disposition: To be discharged home. Prognosis: Good. Rehabilitation Goals: 1.Become independent with upper and lower body dressing. 2.Independent with transferring, toileting, showering, and going up and down 10 steps independently. 3.Ambulate 250 feet independently. 4.Performing all cognitive functioning independently. 5.Managing his surgical site independently. I acknowledge I have personally performed a full physical examination on patient, tiffanie Lopez later than 24 hours after his admission to the inpatient rehabilitation unit and determined he is a ble to tolerate the above course of treatment at an intensive level for the time stated. A detailed individualized plan of care for him will be completed by hospital day 4 based on the pre-admission screen, history and physical, and ther apy evaluations. ROCAEL Voice ID: [id number]
[2022-10-21 04:52] LABS: Absolute Lymphocytes (CBC) 0.8 K/uL (0.7-4.9); Hematocrit 30.1 % (39.6-49.0); Lymphocytes % 17.9 % (15.3-44.8); MCV 93.3 fL (80-100); MPV 9.4 fL (7.6-11.3); RBC Red Blood Cell Count 3.22 M/uL (4.33-5.43)
[2022-10-21 05:06] LABS: Protime INR 1.24
[2022-10-21 05:36] LABS: Albumin 2.4 g/dL (3.4-5.0); Magnesium 2.1 mg/dL (1.6-2.4); Potassium 4.4 mEq/L (3.5-5.1); Prealbumin 12.2 mg/dL (20-40)
[2022-10-21 06:05] LABS: Hepatitis B Core Ab, Total Nonreactive (Nonreactive); Hepatitis B surface AG Interp. Nonreactive (Nonreactive)
[2022-10-21 06:06] LABS: Hepatitis B Surface Ab - Quant < 3.10 mIU/mL (<8.0)
[2022-10-21] MEDS ORDERED: PANTOPRAZOLE 40MG TABLET PO SCH (06:30)
[2022-10-21] MEDS: FERROUS SULFATE 325 MG TAB PO SCH (07:24)
[2022-10-21] MEDS: MULTIVITAMINS,THERAPEUT 1 TAB PO SCH (07:24)
[2022-10-21] MEDS: BUMETANIDE 1 MG TABLET PO SCH ×2 (07:24→17:03)
[2022-10-21] MEDS: DOCUSATE NA 100 MG CAP PO SCH ×2 (07:24→22:11)
[2022-10-21] MEDS: SEVELAMER CARBONATE 800 MG TABLET PO SCH ×3 (07:25→17:04)
[2022-10-21] MEDS: CLOPIDOGREL 75 MG TABLET PO SCH (07:25)
[2022-10-21] MEDS: MIDODRINE HCL 5 MG TABLET PO SCH ×3 (07:27→22:11)
[2022-10-21] MEDS: INSULIN -REGULAR HUMAN 50 UNIT/0.5 ML ML SQ SCH ×4 (07:30→21:00)
[2022-10-21] MEDS: COENZYME Q10- 200 MG CAP PO SCH (07:41)
[2022-10-21] MEDS ORDERED: DIGOXIN 0.125 MG TABLET PO SCH (08:00)
[2022-10-21] MEDS ORDERED: levoFLOXacin 250 MG TAB PO ONE (08:00)
[2022-10-21 08:20] LABS: Specific Gravity 1.014 (1.005-1.030); Urine Bacteria <20 /HPF (<20); Urine Bilirubin NEGATIVE (Negative); Urine Blood 1+ (Negative); Urine Clarity Turbid (Clear); Urine Color Yellow (Yellow); Urine Crystals Unidentified Few /HPF (None Seen); Urine Glucose NEGATIVE (Negative); Urine Mucus Slight /HPF (None Seen); Urine Protein 1+ (Negative); Urine RBC 21-50 /HPF (None Seen); Urine Urobilinogen Normal (Normal); Urine WBC Clump Few /HPF (None Seen); Urine pH 5.5 (5.0-7.0)
[2022-10-21] MEDS: HYDROCODONE/APAP 5/325 MG TAB PO PRN ×3 (08:25→22:17)
--- NOTE | 2022-10-21 14:48 | P.PN ---
Nephrology note: (S) Pt seen during PT session, sitting in wheelchair, reports Rt hip trochanteric fracture treated non surgically given his higher surgical risk and coronary lesion with need for high risk PCI. He has no active CP or dyspnea, he denies any rachael orthostatic symptoms. (O) Vitals reviewed in the EMR General: NAD, appears chronically ill HEENT: Atraumatic, sclera anicteric Neck: Supple Respiratory: Poor resp effort, reduced at bases Cardiovascular: Regular rate/rhythm mostly without cardiac gallop heart sound appreciated, upper chest DELI/BAKERY ASSOCIATE-D, b/l 2+ pitting edema Gastrointestinal: Soft and benign, Non-distended Musculoskeletal: shins are non tender, ROM not tested Integumentary: No rashes, xerosis Neurological: Normal speech, awake & alert, non focal Laboratory Data (last 24 hrs) Reviewed in the EMR Conclusions/Impression: Recently declared ESRD and initiated on HD in the setting of reported progressive CKD and his chronic co-morbidities -Tolerating HD ok, will cont iHD MWF while at rehab, see HD orders for details. Severe ischemic cardiomyopathy with atherosclerosis of deering and grafted coronary arteries with chronic systolic CHF -Assess UF tolerance on dialysis, establish EDW, initiate Entresto at low dose dose if tolerated. Simultaneously can use Midodrine for BP support zaki around dialysis. F/u with Cardiology given findings on recent LHC. Monitor for any anginal equivalent or other. S/p fall with comminuted Rt trochanteric fracture -Cont rehab, f/u with ortho, high surgical risk pt Anemia 2nd to CKD, chronic illnesses -Target Hb of 10-11 Shlomo Dietz MD, CATHERINE
[2022-10-21] MEDS ORDERED: EPOETIN ALFA 10,000 UNIT/ML VIAL SQ SCH (17:00)
[2022-10-21] MEDS: WARFARIN SODIUM 2.5 MG TAB PO SCH (17:04)
[2022-10-21] MEDS: EPOETIN ALFA 10,000 UNIT/ML VIAL SQ SCH (17:05)
[2022-10-21] MEDS ORDERED: DRISDOL (VITAMIN D=ERGOCALCIFEROL) 50000 UNIT CAP PO SCH (21:00)
[2022-10-21] MEDS: ATORVASTATIN 80 MG TAB PO SCH (22:11)
[2022-10-21] MEDS: SACUBITRIL/VALSARTAN 24/26 MG TAB PO SCH (22:11)
--- NOTE | 2022-10-21 22:57 | PN ---
Date of Progress Note: 10/21/2022 Oava-Bl-Oosk Progress Note Visit Time Of Service: 1 p.m. Subjective: Mr. Miles is doing well. He actually has no significant complaints except there is so me pain in the right hip, but that is mitigated by medication. He said that food is good. Sleep is good. Bowel movements are good. He has no new complaints there. Review of Systems: Mild pain in the right hip area where there is nonsurgical greater trochanteric fracture. He has tra ce edema in the right lower extremity. Otherwise, no fevers, chills, nausea, or vomiting. No rash o r headache. No psychiatric issues. Physical Examination: Vital Signs: Blood pressure 134/62, pulse 65, respiratory rate 16, temperature 97, and oxygen satura tion 98%. General: Mr. Miles is again, resting comfortably. He is in no acute distress. HEENT: He is normocephalic, atraumatic. Sclerae anicteric. Oropharynx pink and moist. Neck: Supple. Chest: Clear. Heart: Regular. Extremities: No significant clubbing, cyanosis, or edema. Neurologic: In terms of his strength, there is some give way in the right lower extremity because of the right hip, which has the right greater trochanteric fracture. Laboratory Studies: White blood cell count 4.4, hemoglobin 9.6, and platelets 134. INR 1.24. Sodiu m 133, potassium 4.4, chloride 102, carbon dioxide 24, BUN 74, creatinine 3.8, glucose ranged from 13 3 to 180. Uric acid 5.0. Calcium 8.1. Phosphorus 3.0. Magnesium 2.1. Beta-natriuretic peptide 61 ,092. Prealbumin 12.2, albumin 2.4. Cortisol 11.62. His urinalysis does show 500 esterase, 21 to 5 0, red blood cells, greater than 50 white blood cells, 2 clumps and turbid. He has hepatitis core an tibody nonreactive, hepatitis surface antibody nonreactive, and hepatitis B antigen nonreactive. He is followed by the Renal Service, Dr. Wilson and Dr. Keenan and the patient is on hemodialysis. He has end-stage renal disease and he is being followed by the Renal Service with Wednesday, Wednesday, and Wednesday hemodialysis. Medications: Tylenol 650 every 6 hours as needed; [place] 5/325 every 6 hours as needed; albumin 25% 5 mL every hemodialysis; Lipitor 80 mg at bedtime; Bumex 1 mg at night and 2 mg in a day; Plavix 75 mg daily; coenzyme Q10 200 mg daily; Colace 100 mg twice daily; Retacrit 10,000 units subcutaneously on Wednesday, Wednesday, Wednesday; Drisdol 50,000 units weekly; ferrous sulfate 325 mg daily; glucagon as ne eded 1 mg IM; heparin 3000 units with every hemodialysis; mannitol 12.5 mg with every hemodialysis; m idodrine 5 mg 3 times daily; Protonix 40 mg daily; Renvela 800 mg 3 times daily; Coumadin 2.5 mg , Wednesday, Wednesday, Wednesday, and Wednesday and 5 mg Wednesday and . Current Functional Status: Today Mr. Miles ambulated 250 feet 3 times, another 200 feet, and anoth er 100 feet with contact guard to standby assistance using a rolling walker. He ascended and descend ed 15 steps with contact guard assistance using left-sided handrail. He was able to do core strength exercises with 2 dowel rods and Thera-Bands, 4 sets of 30 repetitions to improve strength. With spe ech therapy, he used internal memory strategies recall 4 of 4 unrelated pictures after space interval of 5, 10, and 15 minutes. Progress Towards Rehabilitation Goals: Mr. Miles is making excellent progress of his goals of beco mikhail independent with upper and lower body dressing, transferring, toileting, showering, ambulating 5 00 feet with independence, up and down 10 steps with independence, and performing cognitive functioni ng independently. He also has Renal Service following him and his comorbids are managed aggressively . Assessment: Mr. Miles is a 76-year-old patient admitted with a right greater trochanteric fracture to the inpatient rehabilitation unit. He has end-stage renal disease on hemodialysis, hypertension, dyslipidemia, thrombocytopenia, urinary tract infection, and peripheral artery disease. Plan: 1.Continue physical, occupational, and speech therapy, 3.5 hours 5 of 7 days. 2.Continue all comorbid condition medications including Lipitor for dyslipidemia and multiple medica tions for hypertension. 3.End-stage renal disease will be treated with hemodialysis. 4.Urinary tract infection. Continue levofloxacin. 5.Senokot-S for constipation. 6.Continue his oral hypoglycemics and insulin sliding scale. 7.His DVT prophylaxis is with Coumadin. He is targeting between 2.5 to 3.5 INR based and his dosage will be adjusted to achieve that target. Comorbids That Are Continuing To Impact The Rehabilitation Process: At this point, he does have end- stage renal disease on hemodialysis and the rehabilitation schedule will be worked around the hemodia lysis schedule. He is also having multiple comorbid conditions, which will require the skilled nursi ng to address those, which is actually part of his rehabilitation process so is not negatively impact ing while he is in rehabilitation. NEISHA/ASMITA Voice ID: [id number] Report ID: [id number]
[2022-10-22 04:31] LABS: Absolute Lymphocytes (CBC) 0.6 K/uL (0.7-4.9); Hematocrit 28.8 % (39.6-49.0); Lymphocytes % 13.7 % (15.3-44.8); MCV 92.3 fL (80-100); RBC Red Blood Cell Count 3.12 M/uL (4.33-5.43)
[2022-10-22 04:33] LABS: Protime INR 1.32
[2022-10-22 04:53] LABS: Albumin 2.3 g/dL (3.4-5.0); Potassium 3.7 mEq/L (3.5-5.1); Prealbumin 12.6 mg/dL (20-40)
[2022-10-22] MEDS: INSULIN -REGULAR HUMAN 50 UNIT/0.5 ML ML SQ SCH ×4 (07:27→19:56)
[2022-10-22] MEDS ORDERED: levoFLOXacin 250 MG TAB PO ONE (08:00)
[2022-10-22] MEDS ORDERED: CRANBERRY FRUIT EXTRACT 200 MG CAP PO SCH (08:00)
[2022-10-22] MEDS: SACUBITRIL/VALSARTAN 24/26 MG TAB PO SCH ×2 (08:00→11:37)
[2022-10-22] MEDS: BUMETANIDE 1 MG TABLET PO SCH ×2 (08:01→17:17)
[2022-10-22] MEDS: MIDODRINE HCL 5 MG TABLET PO SCH ×3 (08:02→19:57)
[2022-10-22] MEDS: PANTOPRAZOLE 40MG TABLET PO SCH (08:02)
[2022-10-22] MEDS: CLOPIDOGREL 75 MG TABLET PO SCH (08:02)
[2022-10-22] MEDS: MULTIVITAMINS,THERAPEUT 1 TAB PO SCH (08:03)
[2022-10-22] MEDS: COENZYME Q10- 200 MG CAP PO SCH (08:03)
[2022-10-22] MEDS: DOCUSATE NA 100 MG CAP PO SCH ×2 (08:03→19:58)
[2022-10-22] MEDS: FERROUS SULFATE 325 MG TAB PO SCH (08:03)
[2022-10-22] MEDS: SEVELAMER CARBONATE 800 MG TABLET PO SCH (08:04)
[2022-10-22] MEDS: HYDROCODONE/APAP 5/325 MG TAB PO PRN ×2 (08:04→17:18)
[2022-10-22] MEDS ORDERED: WARFARIN SODIUM 5 MG TAB PO SCH ×2 (17:00)
[2022-10-22] MEDS: WARFARIN SODIUM 5 MG TAB PO SCH (17:17)
[2022-10-22] MEDS: ATORVASTATIN 80 MG TAB PO SCH (19:57)
[2022-10-22] MEDS: CRANBERRY FRUIT EXTRACT 200 MG CAP PO SCH (19:57)
--- NOTE | 2022-10-22 21:29 | P.PN ---
Date of Service: 10/22/22 Vital Signs Temp Pulse Resp BP Pulse Ox 97.9 F 67 18 110/51 L 99 10/22/22 20:22 10/22/22 20:22 10/22/22 20:22 10/22/22 20:22 10/22/22 20:22 Medications Acetaminophen (Acetaminophen 325 Mg Tablet) 650 mg PO Q6H PRN PRN Reason: Pain scale 2-4 (Mild) Hydrocodone Bitart/Acetaminophen (Hydrocodone/Apap 5/325 Mg Tab) 1 tab PO Q6H PRN PRN Reason: Pain scale 5-7 (Moderate) Last Admin: 10/22/22 17:18 Dose: 1 tab Atorvastatin Calcium (Atorvastatin 80 Mg Tab) 80 mg PO BEDTIME [facility] Last Admin: 10/22/22 19:57 Dose: 80 mg Bumetanide (Bumetanide 1 Mg Tablet) 1 mg PO 1700 [facility] Last Admin: 10/22/22 17:17 Dose: 1 mg Bumetanide (Bumetanide 1 Mg Tablet) 1 mg PO DAILY [facility] Clopidogrel Bisulfate (Clopidogrel 75 Mg Tablet) 75 mg PO DAILY [facility] Last Admin: 10/22/22 08:02 Dose: 75 mg Coenzyme Q10 (Coenzyme Q10- 200 Mg Cap) 200 mg PO DAILY [facility] Last Admin: 10/22/22 08:03 Dose: 200 mg Dextrose (D10w 250 Ml Bag) 125 ml IV PRN PRN; Protocol PRN Reason: HYPOGLYCEMIA Docusate Sodium (Docusate Na 100 Mg Cap) 100 mg PO BID [facility] Last Admin: 10/22/22 19:58 Dose: 100 mg Epoetin Charlie (Epoetin Charlie 10,000 Unit/Ml Vial) 10,000 unit SQ M,W,F [facility] Last Admin: 10/21/22 17:05 Dose: 10,000 unit Ergocalciferol (Drisdol (Vitamin D=Ergocalciferol) 71987 Unit Cap) 50,000 unit PO Q7D [facility] Last Admin: 10/21/22 21:00 Dose: Not Given Ferrous Sulfate (Ferrous Sulfate 325 Mg Tab) 325 mg PO DAILY [facility] Last Admin: 10/22/22 08:03 Dose: 325 mg Glucagon (Glucagon 1 Mg/Vial) 1 mg IM 1X PRN; Protocol PRN Reason: HYPOGLYCEMIA Heparin Sodium (Porcine) (Heparin 1,000 Unit/Ml Vial) 3,000 unit IV EVERY HD PRN PRN Reason: Prevent Lines Clotting Home Med (Xyzal 5mg) 1 tab PO BEDTIME PRN PRN Reason: ALLERGIES Albumin Human (Albumin 25%) 50 mls @ 100 mls/hr IV EVERY HD [facility] Insulin Human Regular (Insulin -Regular Human 50 Unit/0.5 Ml Ml) 0 unit SQ ACHS [facility]; Protocol Last Admin: 10/22/22 19:56 Dose: 2 unit Mannitol (Mannitol 25% 12.5 Gm/50 Ml Vial) 12.5 gm IV EVERY HD PRN PRN Reason: Titrate to SBP (MUST DEFINE) Midodrine (Midodrine Hcl 5 Mg Tablet) 5 mg PO TID [facility] Last Admin: 10/22/22 19:57 Dose: 5 mg Pantoprazole Sodium (Pantoprazole 40mg Tablet) 40 mg PO 0730 [facility]; Protocol Last Admin: 10/22/22 08:02 Dose: 40 mg Polyethylene Glycol (Polyethyl Gly 3350 17 Gm/Dose) 17 gm PO DAILY PRN PRN Reason: CONSTIPATION - 1ST LINE Senna (Senosides 8.6 Mg Tab) 8.6 mg PO DAILY PRN PRN Reason: CONSTIPATION - 2ND LINE Last Admin: 10/22/22 19:57 Dose: 8.6 mg Vitamin B Complex/Vit C/Folic Acid (Multivitamins,Therapeut 1 Tab) 1 tab PO DAILY [facility] Last Admin: 10/22/22 08:03 Dose: 1 tab Warfarin Sodium (Warfarin Sodium 5 Mg Tab) 5 mg PO QD@1700 [facility] Last Admin: 10/22/22 17:17 Dose: 5 mg Lab Results (last 24 hrs) 10/22/22 19:35: POC Glucose 204 H 10/22/22 16:36: POC Glucose 171 H 10/22/22 12:00: POC Glucose 148 H 10/22/22 06:57: POC Glucose 177 H 10/22/22 04:18: Sodium 136, Potassium 3.7 D, Chloride 105, Carbon Dioxide 28, Anion Gap 6.7, BUN 32 H, Creatinine 2.87 H, Est GFR (CKD-EPI) 22 L, Glucose 218 H, Calcium 8.1 L, Magnesium 2.0, Albumin 2.3 L, Prealbumin 12.6 L 10/22/22 04:18: WBC 4.40, RBC 3.12 L, Hgb 9.4 L, Hct 28.8 L, MCV 92.3, MCH 30.0, MCHC 32.5, RDW 16.6 H, Plt Count 128 L, MPV 9.0, Neutrophils % 72.0, Lymphocytes % 13.7 L, Monocytes % 12.0, Eosinophils % 1.5, Basophils % 0.8, Absolute Neutrophils 3.2, Absolute Lymphocytes 0.6 L, Absolute Monocytes 0.5, Absolute Eosinophils 0.1, Absolute Basophils 0.0 10/22/22 04:18: PT 14.5 H, INR 1.32 10/21/22 22:08: POC Glucose 141 H Assessment/ Plan: Nephrology No dyspnea No chest pain Feeling stronger Walking with PT/ Walker No acute events overnight Vitals, medications, blood work and imaging reviewed in the chart. General: In no apparent distress, Oriented x3, Cooperative HEENT: Atraumatic Neck: Supple Respiratory: Clear to auscultation bilaterally Cardiovascular: Regular rate/rhythm, Edema Gastrointestinal: Soft and benign, Non-distended Musculoskeletal: No clubbing, No contractures Integumentary: No rashes, No cyanosis Neurological: Normal speech Laboratory Data (last 24 hrs) 10/20/22 15:16: PT 13.6 H, INR 1.24 Imagings Data: Multiplanar CT imaging of the right hip was performed 10-15-22 Comminuted cortical interruption extends through the greater trochanter with no angular deformity. There is approximately 7 mm of medial distraction at the base of the lesser trochanter fracture bed with no other displacement appreciated. Chondrocalcinosis is seen at the symphysis pubis and right hip joint.Lumbosacral junction spondylosis and facet arthropathy are seen with multilevel discal vacuum phenomena. Vascular calcifications are present. Scattered dystrophic soft tissue calcifications are seen. There is diffuse subcutaneous fat stranding. Crystalline deposition is seen within the proximal common hamstring tendon complex. IMPRESSION Comminuted greater trochanter fracture with no extension into the lesser trochanter. Multiplanar multiweighted MR imaging of the right hip was performed. 10-15-22 BONE AND JOINT: Cortical medullary interruption with intramedullary T2 signal increase extends through the greater trochanter. There is no fracture extension into the lesser trochanter. Nonspecific mild T2 signal increase is seen within the left posterior superior ilium adjacent to the SI joint which may relate to red marrow reconversion or subtle osseous contusion. No joint effusion is present. Lumbosacral junction spondylosis and facet arthropathy are partially profiled. LIGAMENTS /TENDONS/SOFT TISSUES: Moderate intramuscular T2 signal increase is noted within the adductors bilaterally with moderate mild intramuscular T2 signal increase seen within the gluteus musculature. Edema tracks deep to the bilateral iliacus muscle bellies. There is fluid noted within the presacral tissues which is nonspecific. Thickening of the bladder wall is seen with bilateral bladder diverticula. IMPRESSION Greater trochanter fracture and osseous contusion with no fracture extension into the lesser trochanter. Posttraumatic muscle contusion/strain. Echocardiogram [id number] LeftVentricle: Left ventricle is mildly dilated. Normal wall thickness. Severe global hypokinesis present. Severely reduced systolic function with a visually estimated EF of 15 - 20%. Diastolic dysfunction. RightVentricle: Right ventricle is normal in size and function. Normal wall thickness. Normal systolic function. There is a pacemaker lead in the right ventricle. MitralValve: Mitral valve is normal in structure and function. Mild to moderate transvalvular regurgitation with an eccentrically directed jet. Mild stenosis. AorticValve: Aortic valve is normal in structure and function. Consistent with moderate aortic stenosis. IVC/SVC: IVC diameter is greater than 21 mm and decreases less than 50% during inspiration; therefore the estimated right atrial pressure is elevated (~15 mmHg). Left Heart Cath and Coronary Angiography Date of Service: 10/02/22 Indication/Diagnosis: heart failure Procedure Note: RCFA, 5F, JL4, JR4, RADHA, Manual. Findings: coronary dominance: bilaterally left main: distal heavy calcified 90% disease. LAD: ostial 90% disease, mid occluded. LCX: Ostial 90% disease, proximal, mid to distal mild LI. RCA: co-dominant, proximal 50% disease, mid diffuse 40% disease then mild LI Grafts: - CABRERA-LAD: Patent, fills mid to distal LAD. - SVG-OM: Non selective shot, but looks atretic. Lower abdominal aorta angiogram: Lower abdominal aorta: tortuous patent. REIA: Mid 99% occluded, heavy calcified. RCFA: mid 80% disease then occluded. LAMBERT: Patent LCFA: Patent Impression and Plan: - Significant distal LM disease. - Significant mid LAD disease, patent CABRERA-LAD - Significant LCX disease, atretic graft to OM. - Significant Right external iliac disease with significant tortuosity and heavy calcification. - Mild elevated filling pressure. - Recommend transfer to [place] or [facility] for high risk PCI of LM into LCX (left groin vs RR access) - Continue aggressive medical treatment for CAD/HF. - Findings and plan of care discussed with patient and family. [id number] Right Extracranial There is scattered hard plaque and intimal thickening throughout the common carotid artery. There is a moderate amount of hard plaque noted in the bulb extending into the internal carotid artery with color flow disturbance, spectral broadening, and elevated peak velocity noted in the internal carotid artery; findings suggest 50-79% stenosis. The external carotid artery is patent. The vertebral artery is antegrade. Left Extracranial There is scattered hard plaque and intimal thickening throughout the common carotid artery. There is a moderate amount of hard plaque noted in the bulb extending into the internal carotid artery with color flow disturbance, spectral broadening, and elevated peak velocity noted in the internal carotid artery; findings suggest 50-79% stenosis. The external carotid artery is patent. The vertebral artery is antegrade. Interpretation Summary 50-79% BILATERAL INTERNAL CAROTID ARTERY STENOSIS. Interpretation Summary 06-20-21 Both lower extremity arterial systems were examined. Calcification arterial occlusive disease was identified in the lower extremity. The BILATERAL toe-brachial index was normal. Conclusions/Impression: ESRD on HD MWF -HD TIW Chronic Hypotension -Continue Midodrine -Hold Entresto due to hypotension Systolic Diastolic CHF, chronic LE Edema -Continue Bumex -HD with UF DM II with CKD -RISS Anemia in CKD -Continue oral iron CKD MBD -Continue Ergo -Hold Renvela at this time
--- NOTE | 2022-10-22 21:37 | PN ---
Date of Progress Note: 10/22/2022 Time Of Service: 1 p.m. Subjective: Mr. Miles is doing well. He said the food is good. Has no new complaints. He is sle eping well. Bowel movements are working well. He did say that there is slightly more pain in the [facility] hip area where there is a right greater trochanter fracture. Review of Systems: Again, some mild pain in the right nonsurgical hip fracture. He has some trace edema in the right lo wer extremity. Otherwise, no significant fevers, chills, nausea, vomiting, rash, or psychiatric comp laints. Physical Examination: Vital Signs: Blood pressure 107/55, pulse 74, respiratory rate 16, temperature 97.2, oxygen saturati on 93%. General: Mr. Miles is sitting in a chair beside the bed. He is in no significant distress. HEENT: He appears normocephalic, atraumatic. Sclerae anicteric. Oropharynx is moist. Neck: Supple. Chest: Clear. Heart: Regular. Extremities: Show no significant edema except slightly so in the right lower extremity with no clubb ing or cyanosis. Laboratory Studies: White blood cell count 4.4, hemoglobin 9.4, platelets 128. His INR is up to 1.3 2. His Coumadin will be adjusted to 5 mg everyday of 2.5 only. Chemistries: Sodium 136, potassium 3.7, chloride 105, BUN 32, creatinine 2.87, glucose ranged from 171 to 218, calcium 8.1, ma gnesium 2.0, prealbumin 12.6, albumin 2.3. X-ray Imaging: No new x-ray imaging. Medications: Adjusted, so that Coumadin is now 5 mg everyday. All other medications remained same a s notes from his previous days. Current Functional Status: Today he did repeated stand pivot transfers with contact guard to standby assistance using a rolling walker. He ambulated 250 feet, another 200 feet with standby assistance using a rolling walker. He ascended and descended 15 steps with standby assistance. He did another set of 200 feet twice, contact guard assist to standby assistance using a rolling walker on outdoor s urfaces. He ascended and descended ramps and uneven terrain. He did tolerate 10 minutes of bilatera l upper extremity exercises in the wheelchair to improve strength and endurance. With the speech nickolas wallace, he did recall 3 specific daily events from previous date without cues. He verbally identifie d 5 of his diagnoses with minimal assistance in order to better understand his sequence fo r activities of daily living with 90% accuracy with moderate assistance for recall. Progress Towards Rehabilitation Goals: Mr. Miles is making good progress towards his goals of beco mikhail independent with upper and lower body dressing, toileting, showering, transferring, ambulating o angelique 500 feet with independence, up and down 10 steps to 15 steps with independence. Assessment And Plan: Mr. Miles is a 76-year-old patient in the rehabilitation unit with a right gr eater trochanter fracture. He is making great progress with his physical, occupational, and speech t herapy. He has end-stage renal disease, on hemodialysis, hypertension, dyslipidemia, thrombocytopeni a, urinary tract infection, peripheral artery disease. Plan: 1.Continue with physical, occupational, and speech therapy, 3.5 hours, 5 of 7 days. 2.Continue with multiple comorbid medications including Lipitor. Finished his levofloxacin. Contin ue Senokot S. Continue with Coumadin with a target range will be set back at 2 to 2.5. It should be noted that he did have some bruising noted and his INR will be kept at a low range instead of a high er range. Comorbids That Are Continuing To Impact Rehabilitation Process: Currently, his recommendation from ajn severino patient's right of way cutter is to continue with the Coumadin. He is going to have a target range of 2 to 2.5, and will also continue with Plavix as he has cardiac stents placed, but he is at risk for ble eding and he will be followed for his hemoglobin and hematocrit, and any evidence of bleeding such as when having stools and when urinating . LB/MODL Voice ID: [id number] Report ID: [id number]
[2022-10-23] MEDS: HYDROCODONE/APAP 5/325 MG TAB PO PRN ×3 (00:40→13:01)
[2022-10-23 06:51] LABS: Protime INR 1.31
[2022-10-23] MEDS: INSULIN -REGULAR HUMAN 50 UNIT/0.5 ML ML SQ SCH ×4 (07:30→21:00)
[2022-10-23] MEDS: BUMETANIDE 1 MG TABLET PO SCH ×2 (08:00→16:35)
[2022-10-23] MEDS: CLOPIDOGREL 75 MG TABLET PO SCH (08:14)
[2022-10-23] MEDS: MULTIVITAMINS,THERAPEUT 1 TAB PO SCH (08:14)
[2022-10-23] MEDS: FERROUS SULFATE 325 MG TAB PO SCH (08:14)
[2022-10-23] MEDS: PANTOPRAZOLE 40MG TABLET PO SCH (08:14)
[2022-10-23] MEDS: CRANBERRY FRUIT EXTRACT 200 MG CAP PO SCH ×2 (08:14→21:03)
[2022-10-23] MEDS: DOCUSATE NA 100 MG CAP PO SCH ×2 (08:15→21:04)
[2022-10-23] MEDS: MIDODRINE HCL 5 MG TABLET PO SCH ×3 (08:16→21:04)
--- NOTE | 2022-10-23 08:40 | P.RH.PN ---
Estimated Length of Stay: 10 Expected Discharge Date: 10/29/22 Discharge Disposition Plan: Home Family Support: Yes [facility]dc Goal: Mobility, Transfers, Self Care Vital Signs: Last Vital Signs Temp 98.2 F 10/23/22 06:59 Pulse 72 10/23/22 06:59 Resp 18 10/23/22 08:16 BP 100/54 L 10/23/22 06:59 Pulse Ox 99 10/23/22 08:16 Laboratory: Laboratory Last Values WBC 4.40 thou/uL (4.3-10.9) 10/22/22 04:18 RBC 3.12 M/uL (4.33-5.43) L 10/22/22 04:18 Hgb 9.4 g/dL (13.6-17.9) L 10/22/22 04:18 Hct 28.8 % (39.6-49.0) L 10/22/22 04:18 MCV 92.3 fL (80-100) 10/22/22 04:18 MCH 30.0 pg (27.0-35.0) 10/22/22 04:18 MCHC 32.5 g/dL (32.0-36.0) 10/22/22 04:18 RDW 16.6 % (12.1-15.2) H 10/22/22 04:18 Plt Count 128 thou/uL (152-406) L 10/22/22 04:18 MPV 9.0 fL (7.6-11.3) 10/22/22 04:18 Neutrophils % 72.0 % (41.7-73.7) 10/22/22 04:18 Lymphocytes % 13.7 % (15.3-44.8) L 10/22/22 04:18 Monocytes % 12.0 % (3.3-12.3) 10/22/22 04:18 Eosinophils % 1.5 % (0-4.4) 10/22/22 04:18 Basophils % 0.8 % (0-1.3) 10/22/22 04:18 Absolute Neutrophils 3.2 K/uL (1.8-8.0) 10/22/22 04:18 Absolute Lymphocytes 0.6 K/uL (0.7-4.9) L 10/22/22 04:18 Absolute Monocytes 0.5 K/uL (0.1-1.3) 10/22/22 04:18 Absolute Eosinophils 0.1 K/uL (0-0.5) 10/22/22 04:18 Absolute Basophils 0.0 K/uL (0-0.5) 10/22/22 04:18 PT 14.4 SECONDS (9.5-12.5) H 10/23/22 05:45 INR 1.31 10/23/22 05:45 Sodium 136 mEq/L (136-145) 10/22/22 04:18 Potassium 3.7 mEq/L (3.5-5.1) D 10/22/22 04:18 Chloride 105 mEq/L (98-107) 10/22/22 04:18 Carbon Dioxide 28 mEq/L (21-32) 10/22/22 04:18 Anion Gap 6.7 mEq/L (5.0-15.0) 10/22/22 04:18 BUN 32 mg/dL (7-18) H 10/22/22 04:18 Creatinine 2.87 mg/dL (0.70-1.30) H 10/22/22 04:18 Est GFR (CKD-EPI) 22 ml/min (=/>90) L 10/22/22 04:18 Glucose 218 mg/dL (74-106) H 10/22/22 04:18 POC Glucose 179 mg/dL (65-120) H 10/23/22 06:53 Uric Acid 5.0 mg/dL (3.5-7.2) 10/21/22 04:05 Calcium 8.1 mg/dL (8.5-10.1) L 10/22/22 04:18 Phosphorus 3.0 mg/dL (2.5-4.9) 10/21/22 04:05 Magnesium 2.0 mg/dL (1.6-2.4) 10/22/22 04:18 NT-Pro-B Natriuret Pep 76004 pg/mL (<450) H 10/21/22 04:05 Albumin 2.3 g/dL (3.4-5.0) L 10/22/22 04:18 Prealbumin 12.6 mg/dL (20-40) L 10/22/22 04:18 Cortisol 11.62 ug/dL (SEE COMMENT) 10/21/22 04:05 Urine Color Yellow (Yellow) 10/21/22 07:20 Urine Clarity Turbid (Clear) H 10/21/22 07:20 Urine pH 5.5 (5.0-7.0) 10/21/22 07:20 Ur Specific [place] 1.014 (1.005-1.030) 10/21/22 07:20 Glucose (UA)(Auto) Negative (Negative) 10/21/22 07:20 Urine Ketones Negative (Negative) 10/21/22 07:20 Urine Blood 1+ (Negative) H 10/21/22 07:20 Urine Nitrite Negative (Negative) 10/21/22 07:20 Urine Bilirubin Negative (Negative) 10/21/22 07:20 Urine Urobilinogen Normal (Normal) 10/21/22 07:20 Ur Leukocyte Esterase 500 Attila/uL (Negative) H 10/21/22 07:20 Urine RBC 21-50 /HPF (None Seen) H 10/21/22 07:20 Urine WBC >50 /HPF (<5) H 10/21/22 07:20 Urine WBC Clumps Few /HPF (None Seen) H 10/21/22 07:20 Ur Squamous Epith Cells <5 /HPF (None Seen) 10/21/22 07:20 U Non-Squamous Epi Cells <5 /HPF (None Seen) 10/21/22 07:20 Unidentified Crystals Few /HPF (None Seen) 10/21/22 07:20 Urine Bacteria <20 /HPF (<20) 10/21/22 07:20 Hyaline Casts 0-5 /LPF (None Seen) 10/21/22 07:20 Urine Mucus Slight /HPF (None Seen) 10/21/22 07:20 Urine Culture Reflexed Reflexed 10/21/22 07:20 Urine Total Protein 1+ (Negative) H 10/21/22 07:20 Hep Bs Antigen Nonreactive (Nonreactive) 10/21/22 04:05 Hep B Surface Ag Comm Report 10/21/22 04:05 Hep Bs Antibody Nonreactive (Nonreactive) 10/21/22 04:05 Hep Bs Antibody, Quant < 3.10 mIU/mL (<8.0) 10/21/22 04:05 Hep B Core Total Ab Nonreactive (Nonreactive) 10/21/22 04:05 Weight: 161 lb 4.8 oz Wound Present: No Closed Surgical Incision Present: No Negative Pressure Wound Therapy Present: No Physician Update: Labs reviewed and are stable for ESRD. Completed treatment for UTI. Scored 28/30 on the MOCA. SBA with bed mobility, transfers SBA, 250' SBA on outdoor surfaces. Up and down 15 steps with SBA. He is SBA with ADLs. Summary: Patient's care plan and usp goals have been reviewed and revised as necessary. Please see the Rehabilitation Signature page for all necessary signatures.
[2022-10-23] MEDS: COENZYME Q10- 200 MG CAP PO SCH (09:21)
[2022-10-23] MEDS ORDERED: ALBUMIN HUMAN 25% 100 ML IV ONE (16:27)
[2022-10-23] MEDS: EPOETIN ALFA 10,000 UNIT/ML VIAL SQ SCH ×2 (17:00→21:06)
[2022-10-23] MEDS: WARFARIN SODIUM 5 MG TAB PO SCH ×2 (17:00→21:04)
[2022-10-23] MEDS: GABAPENTIN 100 MG CAP PO SCH (21:05)
[2022-10-23] MEDS: ATORVASTATIN 80 MG TAB PO SCH (21:05)
[2022-10-24 06:36] LABS: Absolute Lymphocytes (CBC) 0.7 K/uL (0.7-4.9); Hematocrit 29.9 % (39.6-49.0); Lymphocytes % 15.8 % (15.3-44.8); MCV 92.3 fL (80-100); MPV 9.3 fL (7.6-11.3); RBC Red Blood Cell Count 3.23 M/uL (4.33-5.43)
[2022-10-24 06:44] LABS: Protime INR 1.41
[2022-10-24 06:50] LABS: Albumin 2.7 g/dL (3.4-5.0); Phosphorus 2.6 mg/dL (2.5-4.9); Potassium 3.9 mEq/L (3.5-5.1)
[2022-10-24] MEDS: INSULIN -REGULAR HUMAN 50 UNIT/0.5 ML ML SQ SCH ×4 (07:10→20:02)
[2022-10-24] MEDS: DOCUSATE NA 100 MG CAP PO SCH ×2 (08:27→19:29)
[2022-10-24] MEDS: CLOPIDOGREL 75 MG TABLET PO SCH (08:27)
[2022-10-24] MEDS: FERROUS SULFATE 325 MG TAB PO SCH (08:27)
[2022-10-24] MEDS: PANTOPRAZOLE 40MG TABLET PO SCH (08:27)
[2022-10-24] MEDS: BUMETANIDE 1 MG TABLET PO SCH ×2 (08:27→17:07)
[2022-10-24] MEDS: GABAPENTIN 100 MG CAP PO SCH ×2 (08:27→19:28)
[2022-10-24] MEDS: MULTIVITAMINS,THERAPEUT 1 TAB PO SCH (08:28)
[2022-10-24] MEDS: CRANBERRY FRUIT EXTRACT 200 MG CAP PO SCH ×2 (08:28→19:28)
[2022-10-24] MEDS: MIDODRINE HCL 5 MG TABLET PO SCH ×3 (08:28→19:29)
[2022-10-24] MEDS: HYDROCODONE/APAP 5/325 MG TAB PO PRN ×2 (08:28→19:28)
[2022-10-24] MEDS: COENZYME Q10- 200 MG CAP PO SCH (10:33)
[2022-10-24] MEDS: WARFARIN SODIUM 5 MG TAB PO SCH (16:55)
--- NOTE | 2022-10-24 17:25 | PN ---
Date of Progress Note: 10/24/2022 Subjective: The patient was seen and examined at bedside. He is doing okay. Had dialysis yesterday . He is doing well with therapy. Physical Examination: Vital Signs: Have been reviewed and are stable. General: He appears in no acute distress. Lungs: Clear. Abdomen: Soft. Extremities: Showed no evidence of edema. Laboratory Data: Has been reviewed in detail. Impression: 1.End-stage renal disease, on dialysis, currently on Wednesday, Wednesday, Wednesday dialysis. 2.Chronic hypotension on midodrine. Entresto is currently on hold. 3.Chronic systolic heart failure with compensated volume status. Continue diuretics and ultrafiltra tion with dialysis. Plan: Overall, patient is clinically stable. Continue to monitor volume status closely, and Wednesday, Wednesday, Wednesday dialysis. We will plan for next dialysis on Wednesday. Continue physical therapy to improve strength and functional status. VV/MODL Voice ID: [id number] Report ID: [id number]
[2022-10-24] MEDS: ATORVASTATIN 80 MG TAB PO SCH (19:28)
[2022-10-25 06:33] LABS: Protime INR 1.78
[2022-10-25] MEDS: INSULIN -REGULAR HUMAN 50 UNIT/0.5 ML ML SQ SCH ×4 (07:30→20:01)
[2022-10-25] MEDS: PANTOPRAZOLE 40MG TABLET PO SCH (07:39)
[2022-10-25] MEDS: FERROUS SULFATE 325 MG TAB PO SCH (08:06)
[2022-10-25] MEDS: COENZYME Q10- 200 MG CAP PO SCH (08:06)
[2022-10-25] MEDS: HYDROCODONE/APAP 5/325 MG TAB PO PRN ×3 (08:07→19:49)
[2022-10-25] MEDS: BUMETANIDE 1 MG TABLET PO SCH ×2 (08:08→15:57)
[2022-10-25] MEDS: MULTIVITAMINS,THERAPEUT 1 TAB PO SCH (08:08)
[2022-10-25] MEDS: MIDODRINE HCL 5 MG TABLET PO SCH ×3 (08:08→19:42)
[2022-10-25] MEDS: GABAPENTIN 100 MG CAP PO SCH ×2 (08:09→19:42)
[2022-10-25] MEDS: CLOPIDOGREL 75 MG TABLET PO SCH (08:09)
[2022-10-25] MEDS: DOCUSATE NA 100 MG CAP PO SCH ×2 (08:09→19:43)
[2022-10-25] MEDS: CRANBERRY FRUIT EXTRACT 200 MG CAP PO SCH ×2 (08:09→19:42)
[2022-10-25] MEDS: WARFARIN SODIUM 5 MG TAB PO SCH (15:56)
[2022-10-25] MEDS: ATORVASTATIN 80 MG TAB PO SCH (19:42)
[2022-10-26 06:33] LABS: Protime INR 2.25
[2022-10-26] MEDS: COENZYME Q10- 200 MG CAP PO SCH (07:05)
[2022-10-26] MEDS: BUMETANIDE 1 MG TABLET PO SCH ×2 (07:06→20:12)
[2022-10-26] MEDS: GABAPENTIN 100 MG CAP PO SCH (07:06)
[2022-10-26] MEDS: MULTIVITAMINS,THERAPEUT 1 TAB PO SCH (07:07)
[2022-10-26] MEDS: CRANBERRY FRUIT EXTRACT 200 MG CAP PO SCH ×2 (07:07→20:12)
[2022-10-26] MEDS: MIDODRINE HCL 5 MG TABLET PO SCH ×3 (07:07→20:13)
[2022-10-26] MEDS: PANTOPRAZOLE 40MG TABLET PO SCH (07:07)
[2022-10-26] MEDS: FERROUS SULFATE 325 MG TAB PO SCH (07:08)
[2022-10-26] MEDS: DOCUSATE NA 100 MG CAP PO SCH ×4 (07:08→20:13)
[2022-10-26] MEDS: CLOPIDOGREL 75 MG TABLET PO SCH (07:08)
[2022-10-26] MEDS: HYDROCODONE/APAP 5/325 MG TAB PO PRN (07:33)
[2022-10-26] MEDS: INSULIN -REGULAR HUMAN 50 UNIT/0.5 ML ML SQ SCH ×4 (07:54→20:15)
--- NOTE | 2022-10-26 11:26 | P.PN ---
Date of Service: 10/26/22 Vital Signs Temp Pulse Resp BP Pulse Ox 97.2 F 75 18 116/56 L 97 10/26/22 07:24 10/26/22 07:24 10/26/22 08:33 10/26/22 07:24 10/26/22 08:33 Medications Acetaminophen (Acetaminophen 325 Mg Tablet) 650 mg PO Q6H PRN PRN Reason: Pain scale 2-4 (Mild) Hydrocodone Bitart/Acetaminophen (Hydrocodone/Apap 5/325 Mg Tab) 1 tab PO Q4H PRN PRN Reason: Pain scale 5-7 (Moderate) Last Admin: 10/26/22 07:33 Dose: 1 tab Atorvastatin Calcium (Atorvastatin 80 Mg Tab) 80 mg PO BEDTIME [facility] Last Admin: 10/25/22 19:42 Dose: 80 mg Bumetanide (Bumetanide 1 Mg Tablet) 1 mg PO 1700 [facility] Last Admin: 10/25/22 15:57 Dose: 1 mg Bumetanide (Bumetanide 1 Mg Tablet) 1 mg PO DAILY [facility] Last Admin: 10/26/22 07:06 Dose: 1 mg Clopidogrel Bisulfate (Clopidogrel 75 Mg Tablet) 75 mg PO DAILY [facility] Last Admin: 10/26/22 07:08 Dose: 75 mg Coenzyme Q10 (Coenzyme Q10- 200 Mg Cap) 200 mg PO DAILY [facility] Last Admin: 10/26/22 07:05 Dose: 200 mg Dextrose (D10w 250 Ml Bag) 125 ml IV PRN PRN; Protocol PRN Reason: HYPOGLYCEMIA Docusate Sodium (Docusate Na 100 Mg Cap) 100 mg PO BID [facility] Last Admin: 10/26/22 07:32 Dose: Not Given Epoetin Charlie (Epoetin Charlie 10,000 Unit/Ml Vial) 10,000 unit SQ M,W,F [facility] Last Admin: 10/23/22 21:06 Dose: 10,000 unit Ergocalciferol (Drisdol (Vitamin D=Ergocalciferol) 26222 Unit Cap) 50,000 unit PO Q7D [facility] Last Admin: 10/21/22 21:00 Dose: Not Given Ferrous Sulfate (Ferrous Sulfate 325 Mg Tab) 325 mg PO DAILY [facility] Last Admin: 10/26/22 07:08 Dose: 325 mg Gabapentin (Gabapentin 100 Mg Cap) 100 mg PO BID [facility] Last Admin: 10/26/22 07:06 Dose: 100 mg Glucagon (Glucagon 1 Mg/Vial) 1 mg IM 1X PRN; Protocol PRN Reason: HYPOGLYCEMIA Heparin Sodium (Porcine) (Heparin 1,000 Unit/Ml Vial) 3,000 unit IV EVERY HD PRN PRN Reason: Prevent Lines Clotting Home Med (Xyzal 5mg) 1 tab PO BEDTIME PRN PRN Reason: ALLERGIES Albumin Human (Albumin 25%) 50 mls @ 100 mls/hr IV EVERY HD [facility] Insulin Human Regular (Insulin -Regular Human 50 Unit/0.5 Ml Ml) 0 unit SQ ACHS [facility]; Protocol Last Admin: 10/26/22 07:54 Dose: 2 unit Midodrine (Midodrine Hcl 5 Mg Tablet) 10 mg PO TID [facility] Last Admin: 10/26/22 07:07 Dose: 10 mg Pantoprazole Sodium (Pantoprazole 40mg Tablet) 40 mg PO 0730 [facility]; Protocol Last Admin: 10/26/22 07:07 Dose: 40 mg Polyethylene Glycol (Polyethyl Gly 3350 17 Gm/Dose) 17 gm PO DAILY PRN PRN Reason: CONSTIPATION - 1ST LINE Senna (Senosides 8.6 Mg Tab) 8.6 mg PO DAILY PRN PRN Reason: CONSTIPATION - 2ND LINE Last Admin: 10/22/22 19:57 Dose: 8.6 mg Vitamin B Complex/Vit C/Folic Acid (Multivitamins,Therapeut 1 Tab) 1 tab PO DAILY [facility] Last Admin: 10/26/22 07:07 Dose: 1 tab Warfarin Sodium (Warfarin Sodium 5 Mg Tab) 5 mg PO QD@1700 [facility] Last Admin: 10/25/22 15:56 Dose: 5 mg Lab Results (last 24 hrs) 10/26/22 07:18: POC Glucose 222 H 10/26/22 05:19: Hgb 9.5 L 10/26/22 05:19: PT 24.7 H, INR 2.25 10/25/22 19:13: POC Glucose 194 H 10/25/22 15:38: POC Glucose 218 H 10/25/22 11:10: POC Glucose 196 H Microbiology Results 10/21/22 07:20 Clean Catch Urine [place] Count - Final <10,000 CFU/ML. 10/21/22 07:20 Clean Catch Urine - Final MIXED [place]IEGO. Assessment/ Plan: Nephrology No dyspnea No chest pain Getting stronger No acute events overnight Vitals, medications, blood work and imaging reviewed in the chart. General: In no apparent distress, Oriented x3, Cooperative HEENT: Atraumatic Neck: Supple Respiratory: Clear to auscultation bilaterally Cardiovascular: Regular rate/rhythm, Edema Gastrointestinal: Soft and benign, Non-distended Musculoskeletal: No clubbing, No contractures Integumentary: No rashes, No cyanosis Neurological: Normal speech Laboratory Data (last 24 hrs) 10/20/22 15:16: PT 13.6 H, INR 1.24 Imagings Data: Multiplanar CT imaging of the right hip was performed 10-15-22 Comminuted cortical interruption extends through the greater trochanter with no angular deformity. There is approximately 7 mm of medial distraction at the base of the lesser trochanter fracture bed with no other displacement appreciated. Chondrocalcinosis is seen at the symphysis pubis and right hip joint.Lumbosacral junction spondylosis and facet arthropathy are seen with multilevel discal vacuum phenomena. Vascular calcifications are present. Scattered dystrophic soft tissue calcifications are seen. There is diffuse subcutaneous fat stranding. Crystalline deposition is seen within the proximal common hamstring tendon complex. IMPRESSION Comminuted greater trochanter fracture with no extension into the lesser trochanter. Multiplanar multiweighted MR imaging of the right hip was performed. 10-15-22 BONE AND JOINT: Cortical medullary interruption with intramedullary T2 signal increase extends through the greater trochanter. There is no fracture extension into the lesser trochanter. Nonspecific mild T2 signal increase is seen within the left posterior superior ilium adjacent to the SI joint which may relate to red marrow reconversion or subtle osseous contusion. No joint effusion is present. Lumbosacral junction spondylosis and facet arthropathy are partially profiled. LIGAMENTS /TENDONS/SOFT TISSUES: Moderate intramuscular T2 signal increase is noted within the adductors bilaterally with moderate mild intramuscular T2 signal increase seen within the gluteus musculature. Edema tracks deep to the bilateral iliacus muscle bellies. There is fluid noted within the presacral tissues which is nonspecific. Thickening of the bladder wall is seen with bilateral bladder diverticula. IMPRESSION Greater trochanter fracture and osseous contusion with no fracture extension into the lesser trochanter. Posttraumatic muscle contusion/strain. Echocardiogram [id number] LeftVentricle: Left ventricle is mildly dilated. Normal wall thickness. Severe global hypokinesis present. Severely reduced systolic function with a visually estimated EF of 15 - 20%. Diastolic dysfunction. RightVentricle: Right ventricle is normal in size and function. Normal wall thickness. Normal systolic function. There is a pacemaker lead in the right ventricle. MitralValve: Mitral valve is normal in structure and function. Mild to moderate transvalvular regurgitation with an eccentrically directed jet. Mild stenosis. AorticValve: Aortic valve is normal in structure and function. Consistent with moderate aortic stenosis. IVC/SVC: IVC diameter is greater than 21 mm and decreases less than 50% during inspiration; therefore the estimated right atrial pressure is elevated (~15 mmHg). Left Heart Cath and Coronary Angiography Date of Service: 10/02/22 Indication/Diagnosis: heart failure Procedure Note: RCFA, 5F, JL4, JR4, RADHA, Manual. Findings: coronary dominance: bilaterally left main: distal heavy calcified 90% disease. LAD: ostial 90% disease, mid occluded. LCX: Ostial 90% disease, proximal, mid to distal mild LI. RCA: co-dominant, proximal 50% disease, mid diffuse 40% disease then mild LI Grafts: - CABRERA-LAD: Patent, fills mid to distal LAD. - SVG-OM: Non selective shot, but looks atretic. Lower abdominal aorta angiogram: Lower abdominal aorta: tortuous patent. REIA: Mid 99% occluded, heavy calcified. RCFA: mid 80% disease then occluded. LAMBERT: Patent LCFA: Patent Impression and Plan: - Significant distal LM disease. - Significant mid LAD disease, patent CABRERA-LAD - Significant LCX disease, atretic graft to OM. - Significant Right external iliac disease with significant tortuosity and heavy calcification. - Mild elevated filling pressure. - Recommend transfer to [place] or [facility] for high risk PCI of LM into LCX (left groin vs RR access) - Continue aggressive medical treatment for CAD/HF. - Findings and plan of care discussed with patient and family. [id number] Right Extracranial There is scattered hard plaque and intimal thickening throughout the common carotid artery. There is a moderate amount of hard plaque noted in the bulb extending into the internal carotid artery with color flow disturbance, spectral broadening, and elevated peak velocity noted in the internal carotid artery; findings suggest 50-79% stenosis. The external carotid artery is patent. The vertebral artery is antegrade. Left Extracranial There is scattered hard plaque and intimal thickening throughout the common carotid artery. There is a moderate amount of hard plaque noted in the bulb extending into the internal carotid artery with color flow disturbance, spectral broadening, and elevated peak velocity noted in the internal carotid artery; findings suggest 50-79% stenosis. The external carotid artery is patent. The vertebral artery is antegrade. Interpretation Summary 50-79% BILATERAL INTERNAL CAROTID ARTERY STENOSIS. Interpretation Summary 06-20-21 Both lower extremity arterial systems were examined. Calcification arterial occlusive disease was identified in the lower extremity. The BILATERAL toe-brachial index was normal. Conclusions/Impression: ESRD on HD MWF -HD TIW Chronic Hypotension -Continue Midodrine Systolic Diastolic CHF, chronic LE Edema -Continue Bumex -HD with UF DM II with CKD -RISS Anemia in CKD -Continue oral iron -Start Retacrit CKD MBD -Continue Ergo
[2022-10-26] MEDS: HYDROCODONE/APAP 7.5/325 MG TAB PO PRN ×2 (13:53→20:13)
[2022-10-26] MEDS: ALBUMIN HUMAN 25% 100 ML IV ONE (16:00)
[2022-10-26] MEDS ORDERED: EPOETIN ALFA 10,000 UNIT/ML VIAL SQ SCH (20:00)
[2022-10-26] MEDS: GABAPENTIN 300 MG CAP PO SCH (20:13)
[2022-10-26] MEDS: ATORVASTATIN 80 MG TAB PO SCH (20:13)
[2022-10-26] MEDS: WARFARIN SODIUM 5 MG TAB PO SCH (20:13)
[2022-10-26] MEDS: EPOETIN ALFA 10,000 UNIT/ML VIAL SQ SCH (20:14)
--- NOTE | 2022-10-26 20:14 | PN ---
Date of Progress Note: 10/26/2022 [facility] Progress Note Time Of Service: 1 p.m. Subjective: Mr. Miles is doing well. He has no new complaints. He does not have significant pain at the right greater trochanter fracture, although he does say, at times it does hurt as therapy is ongoing and medications for pain will be adjusted as appropriate. No other complaints. Review of Systems: Again, mild pain at the surgical site. Trace edema in right lower extremity, but no nausea, vomiting , myalgias, arthralgias otherwise. No rash. No psychiatric issues. Physical Examination: Vital Signs: Blood pressure 116/56, pulse 75, respiratory rate 16, temperature 97.2, and oxygen satu ration 97%. General: Mr. Miles is resting comfortably. No acute distress. Neurologic: He has no focal neurologic deficits. There is mild giveaway weakness in the right lower extremity because of the recent right greater trochanter fracture, which did not require surgery. Chest: Clear. Abdomen: Soft. Laboratory Studies: Today blood work showed hemoglobin of 9.5, which is stable compared to 9.6 on . INR 2.25. Glucose ranged from 163 to 222. X-ray/imaging: No new x-ray or imaging. Medications: His medications have been reviewed and he is now on gabapentin 300 mg twice daily, incr eased from gabapentin 100 mg twice daily for his hip pain. Otherwise, all medications are unchanged. Current Functional Status: Today, Mr. Miles was able to ambulate 250 feet twice and 100 feet once with standby assistance using a rolling walker. He ascended and descended 10 steps twice with bilate ral handrails with contact guard assistance. With occupational therapy, he performed toilet transfer s and [id number] transfers with grab bars independently. With speech therapy, he recalled 2 of 3 s ets of pictures after delay of 10 minutes with 100% accuracy. Progress Towards Rehabilitation Goals: Mr. Miles is making excellent progress towards his goals of becoming independent with upper and lower body dressing, transferring, toileting, showering, ambulat ing 250 feet with independence, up and down 10 steps with independence, and performing cognitive func tioning independently. Assessment: Mr. Miles is a 76-year-old patient admitted to the inpatient rehabilitation unit with right greater trochanter fracture, which did not require surgery. He has comorbid end-stage renal di sease on hemodialysis, hypertension, dyslipidemia, thrombocytopenia, urinary tract infection, and per ipheral arterial disease. Plan: 1.Continue with physical, occupational, and speech therapy 3.5 hours, 5 of 7 days. 2.Continue with aggressive management of his comorbid conditions as stated previously. 3.Renal Service is managing his hemodialysis schedule. 4.His Coumadin is on board and he is therapeutic for his INR that will continue. Comorbids That Continue To Impact Rehabilitation: Due to his need for hemodialysis, his therapy is w orked around that, but that is not an issue. His INR is now therapeutic. He is doing excellent in t erms of all therapy. Hemoglobin and hematocrit are stable. It should be noted that there was some u rination, some apparent brownish color discharge, but again hemoglobin is stable and if need be, stra ight catheterization will be done to further evaluate that. NEISHA/ASMITA Voice ID: [id number] Report ID: [id number]
[2022-10-27 05:08] LABS: Protime INR 2.75
[2022-10-27] MEDS: CLOPIDOGREL 75 MG TABLET PO SCH (07:21)
[2022-10-27] MEDS: BUMETANIDE 1 MG TABLET PO SCH ×2 (07:21→17:21)
[2022-10-27] MEDS: MULTIVITAMINS,THERAPEUT 1 TAB PO SCH (07:21)
[2022-10-27] MEDS: COENZYME Q10- 200 MG CAP PO SCH (07:21)
[2022-10-27] MEDS: MIDODRINE HCL 5 MG TABLET PO SCH ×3 (07:22→19:27)
[2022-10-27] MEDS: GABAPENTIN 300 MG CAP PO SCH ×2 (07:22→19:27)
[2022-10-27] MEDS: FERROUS SULFATE 325 MG TAB PO SCH (07:22)
[2022-10-27] MEDS: PANTOPRAZOLE 40MG TABLET PO SCH (07:22)
[2022-10-27] MEDS: CRANBERRY FRUIT EXTRACT 200 MG CAP PO SCH ×2 (07:22→19:27)
[2022-10-27] MEDS: INSULIN -REGULAR HUMAN 50 UNIT/0.5 ML ML SQ SCH ×4 (07:23→21:00)
[2022-10-27] MEDS: DOCUSATE NA 100 MG CAP PO SCH ×2 (08:00→19:27)
[2022-10-27] MEDS: HYDROCODONE/APAP 7.5/325 MG TAB PO PRN ×3 (08:24→19:25)
[2022-10-27] MEDS: WARFARIN SODIUM 5 MG TAB PO SCH (17:22)
[2022-10-27] MEDS: ATORVASTATIN 80 MG TAB PO SCH (19:27)
--- NOTE | 2022-10-27 20:56 | P.PN ---
Date of Service: 10/27/22 Vital Signs Temp Pulse Resp BP Pulse Ox 97.6 F 93 H 18 118/62 95 10/27/22 07:20 10/27/22 17:21 10/27/22 19:25 10/27/22 17:21 10/27/22 12:56 Medications Acetaminophen (Acetaminophen 325 Mg Tablet) 650 mg PO Q6H PRN PRN Reason: Pain scale 2-4 (Mild) Hydrocodone Bitart/Acetaminophen (Hydrocodone/Apap 7.5/325 Mg Tab) 1 tab PO Q4H PRN PRN Reason: Pain scale 8-10 (Severe) Last Admin: 10/27/22 19:25 Dose: 1 tab Atorvastatin Calcium (Atorvastatin 80 Mg Tab) 80 mg PO BEDTIME [facility] Last Admin: 10/27/22 19:27 Dose: 80 mg Bumetanide (Bumetanide 1 Mg Tablet) 1 mg PO 1700 [facility] Last Admin: 10/27/22 17:21 Dose: 1 mg Bumetanide (Bumetanide 1 Mg Tablet) 1 mg PO DAILY [facility] Last Admin: 10/27/22 07:21 Dose: 1 mg Clopidogrel Bisulfate (Clopidogrel 75 Mg Tablet) 75 mg PO DAILY [facility] Last Admin: 10/27/22 07:21 Dose: 75 mg Coenzyme Q10 (Coenzyme Q10- 200 Mg Cap) 200 mg PO DAILY [facility] Last Admin: 10/27/22 07:21 Dose: 200 mg Dextrose (D10w 250 Ml Bag) 125 ml IV PRN PRN; Protocol PRN Reason: HYPOGLYCEMIA Docusate Sodium (Docusate Na 100 Mg Cap) 100 mg PO BID [facility] Last Admin: 10/27/22 19:27 Dose: Not Given Epoetin Charlie (Epoetin Charlie 10,000 Unit/Ml Vial) 10,000 unit SQ M,W,F [facility] Last Admin: 10/26/22 20:14 Dose: 10,000 unit Epoetin Charlie (Epoetin Charlie 10,000 Unit/Ml Vial) 10,000 unit SQ M,W,F [facility] Last Admin: 10/26/22 20:00 Dose: Not Given Ergocalciferol (Drisdol (Vitamin D=Ergocalciferol) 02198 Unit Cap) 50,000 unit PO Q7D [facility] Last Admin: 10/21/22 21:00 Dose: Not Given Ferrous Sulfate (Ferrous Sulfate 325 Mg Tab) 325 mg PO DAILY [facility] Last Admin: 10/27/22 07:22 Dose: 325 mg Gabapentin (Gabapentin 300 Mg Cap) 300 mg PO BID [facility] Last Admin: 10/27/22 19:27 Dose: 300 mg Glucagon (Glucagon 1 Mg/Vial) 1 mg IM 1X PRN; Protocol PRN Reason: HYPOGLYCEMIA Heparin Sodium (Porcine) (Heparin 1,000 Unit/Ml Vial) 3,000 unit IV EVERY HD PRN PRN Reason: Prevent Lines Clotting Home Med (Xyzal 5mg) 1 tab PO BEDTIME PRN PRN Reason: ALLERGIES Albumin Human (Albumin 25%) 50 mls @ 100 mls/hr IV EVERY HD [facility] Insulin Human Regular (Insulin -Regular Human 50 Unit/0.5 Ml Ml) 0 unit SQ ACHS [facility]; Protocol Last Admin: 10/27/22 17:06 Dose: 2 unit Midodrine (Midodrine Hcl 5 Mg Tablet) 10 mg PO TID [facility] Last Admin: 10/27/22 19:27 Dose: 10 mg Pantoprazole Sodium (Pantoprazole 40mg Tablet) 40 mg PO 0730 [facility]; Protocol Last Admin: 10/27/22 07:22 Dose: 40 mg Polyethylene Glycol (Polyethyl Gly 3350 17 Gm/Dose) 17 gm PO DAILY PRN PRN Reason: CONSTIPATION - 1ST LINE Senna (Senosides 8.6 Mg Tab) 8.6 mg PO DAILY PRN PRN Reason: CONSTIPATION - 2ND LINE Last Admin: 10/22/22 19:57 Dose: 8.6 mg Vitamin B Complex/Vit C/Folic Acid (Multivitamins,Therapeut 1 Tab) 1 tab PO DAILY [facility] Last Admin: 10/27/22 07:21 Dose: 1 tab Warfarin Sodium (Warfarin Sodium 5 Mg Tab) 5 mg PO QD@1700 [facility] Last Admin: 10/27/22 17:22 Dose: 5 mg Lab Results (last 24 hrs) 10/27/22 20:03: POC Glucose 200 H 10/27/22 16:55: POC Glucose 201 H 10/27/22 11:15: POC Glucose 107 10/27/22 07:00: POC Glucose 345 H 10/27/22 04:27: PT 30.3 H, INR 2.75 Microbiology Results 10/21/22 07:20 Clean Catch Urine [place] Count - Final <10,000 CFU/ML. 10/21/22 07:20 Clean Catch Urine - Final MIXED [place]IEGO. Assessment/ Plan: Nephrology No dyspnea No chest pain Getting stronger No acute events overnight Vitals, medications, blood work and imaging reviewed in the chart. General: In no apparent distress, Oriented x3, Cooperative HEENT: Atraumatic Neck: Supple Respiratory: Clear to auscultation bilaterally Cardiovascular: Regular rate/rhythm, Edema Gastrointestinal: Soft and benign, Non-distended Musculoskeletal: No clubbing, No contractures Integumentary: No rashes, No cyanosis Neurological: Normal speech Laboratory Data (last 24 hrs) 10/20/22 15:16: PT 13.6 H, INR 1.24 Imagings Data: Multiplanar CT imaging of the right hip was performed 10-15-22 Comminuted cortical interruption extends through the greater trochanter with no angular deformity. There is approximately 7 mm of medial distraction at the base of the lesser trochanter fracture bed with no other displacement appreciated. Chondrocalcinosis is seen at the symphysis pubis and right hip joint.Lumbosacral junction spondylosis and facet arthropathy are seen with multilevel discal vacuum phenomena. Vascular calcifications are present. Scattered dystrophic soft tissue calcifications are seen. There is diffuse subcutaneous fat stranding. Crystalline deposition is seen within the proximal common hamstring tendon complex. IMPRESSION Comminuted greater trochanter fracture with no extension into the lesser trochanter. Multiplanar multiweighted MR imaging of the right hip was performed. 10-15-22 BONE AND JOINT: Cortical medullary interruption with intramedullary T2 signal increase extends through the greater trochanter. There is no fracture extension into the lesser trochanter. Nonspecific mild T2 signal increase is seen within the left posterior superior ilium adjacent to the SI joint which may relate to red marrow reconversion or subtle osseous contusion. No joint effusion is present. Lumbosacral junction spondylosis and facet arthropathy are partially profiled. LIGAMENTS /TENDONS/SOFT TISSUES: Moderate intramuscular T2 signal increase is noted within the adductors bilaterally with moderate mild intramuscular T2 signal increase seen within the gluteus musculature. Edema tracks deep to the bilateral iliacus muscle bellies. There is fluid noted within the presacral tissues which is nonspecific. Thickening of the bladder wall is seen with bilateral bladder diverticula. IMPRESSION Greater trochanter fracture and osseous contusion with no fracture extension into the lesser trochanter. Posttraumatic muscle contusion/strain. Echocardiogram [id number] LeftVentricle: Left ventricle is mildly dilated. Normal wall thickness. Cece re global hypokinesis present. Severely reduced systolic function with a visually estimated EF of 15 - 20%. Diastolic dysfunction. RightVentricle: Right ventricle is normal in size and function. Normal wall thickness. Normal systolic function. There is a pacemaker lead in the right ventricle. MitralValve: Mitral valve is normal in structure and function. Mild to moderate transvalvular regurgitation with an eccentrically directed jet. Mild stenosis. AorticValve: Aortic valve is normal in structure and function. Consistent with moderate aortic stenosis. IVC/SVC: IVC diameter is greater than 21 mm and decreases less than 50% during inspiration; therefore the estimated right atrial pressure is elevated (~15 mmHg). Left Heart Cath and Coronary Angiography Date of Service: 10/02/22 Indication/Diagnosis: heart failure Procedure Note: RCFA, 5F, JL4, JR4, RADHA, Manual. Findings: coronary dominance: bilaterally left main: distal heavy calcified 90% disease. LAD: ostial 90% disease, mid occluded. LCX: Ostial 90% disease, proximal, mid to distal mild LI. RCA: co-dominant, proximal 50% disease, mid diffuse 40% disease then mild LI Grafts: - CABRERA-LAD: Patent, fills mid to distal LAD. - SVG-OM: Non selective shot, but looks atretic. Lower abdominal aorta angiogram: Lower abdominal aorta: tortuous patent. REIA: Mid 99% occluded, heavy calcified. RCFA: mid 80% disease then occluded. LAMBERT: Patent LCFA: Patent Impression and Plan: - Significant distal LM disease. - Significant mid LAD disease, patent CABRERA-LAD - Significant LCX disease, atretic graft to OM. - Significant Right external iliac disease with significant tortuosity and heavy calcification. - Mild elevated filling pressure. - Recommend transfer to [place] or [facility] for high risk PCI of LM into LCX (left groin vs RR access) - Continue aggressive medical treatment for CAD/HF. - Findings and plan of care discussed with patient and family. [id number] Right Extracranial There is scattered hard plaque and intimal thickening throughout the common carotid artery. There is a moderate amount of hard plaque noted in the bulb extending into the internal carotid artery with color flow disturbance, spectral broadening, and elevated peak velocity noted in the internal carotid artery; findings suggest 50-79% stenosis. The external carotid artery is patent. The vertebral artery is antegrade. Left Extracranial There is scattered hard plaque and intimal thickening throughout the common carotid artery. There is a moderate amount of hard plaque noted in the bulb extending into the internal carotid artery with color flow disturbance, spectral broadening, and elevated peak velocity noted in the internal carotid artery; findings suggest 50-79% stenosis. The external carotid artery is patent. The vertebral artery is antegrade. Interpretation Summary 50-79% BILATERAL INTERNAL CAROTID ARTERY STENOSIS. Interpretation Summary 06-20-21 Both lower extremity arterial systems were examined. Calcification arterial occlusive disease was identified in the lower extremity. The BILATERAL toe-brachial index was normal. Conclusions/Impression: ESRD on HD MWF -HD TIW Chronic Hypotension -Continue Midodrine Systolic Diastolic CHF, chronic LE Edema -Continue Bumex -HD with UF DM II with CKD -RISS Anemia in CKD -Continue oral iron -Start Retacrit CKD MBD -Continue Ergo
--- NOTE | 2022-10-27 22:31 | PN ---
Date of Progress Note: 10/27/2022 [id number] Progress Note Visit Time Of Service: 1:30 p.m. Subjective: Mr. Miles is doing well. He has no new complaints. He is excited about going home in the morning and wants to make sure all of his medications are up to date and he is receiving medicat ions when going home. Review of Systems: He reports no significant change in his pain in the right greater trochanter fracture area, he is man aging it well. No fevers or chills. No nausea or vomiting. No rash. No headache. No active psych iatric issues. Physical Examination: Vital Signs: Blood pressure 118/62, pulse 56 up to 93, respiratory rate 14 to 18, temperature 97.6, and oxygen saturation 95%.. General: Mr. Miles was doing well, resting comfortably. HEENT: He is normocephalic, atraumatic. Sclerae anicteric. Oropharynx is pink and moist. Neck: Supple. Chest: Clear. Heart: Regular. Extremities: No significant edema or cyanosis. His right hip shows no unusual swelling or unexpecte d tenderness or warmth. Laboratory Studies: Yesterday his hemoglobin was 9.5, that is on the 8th and on the 4th, it was 9.4. Today his INR is 2.75. Blood sugars were high this morning at 345. X-ray/imaging: No x-ray or imaging. Medications: His medications have been reviewed and remain unchanged. Current Functional Status: He currently ambulated 250 twice, another 300 feet once, and 150 feet ind ependently using a rolling walker. He ascended and descended 15 steps twice with bilateral handrails independently. Stand and pivot transfers done independently. [id number]-kv-[id number] transfers done independe ntly using a rolling walker. With his occupational therapy, he completed ADLs transfers independentl y with a rolling walker, upper and lower body dressing independently. With speech, his Arnoldo Cogn itive Assessment Test total was 27/30, which is a normal study. Progress Towards Rehabilitation Goals: Mr. Miles has made excellent progress towards rehabilitatio n goals and is now set for discharge tomorrow. He will benefit greatly from outpatient therapist physical apy more than Home Health. Assessment: Mr. Miles is a 76-year-old patient admitted to the rehabilitation unit with a greater trochanter fracture on the right. That fracture did not require surgery. He has end-stage renal dis ease on hemodialysis, hypertension, dyslipidemia, thrombocytopenia, urinary tract infection, and ryne pheral artery disease. His urinary tract infection is treated. He has done excellent with his physi juan therapy and is ready for discharge home. Plan: 1.Continue for now with physical, occupational, and speech therapy, 3.5 hours, 5 of 7 days. 2.Continue with all management of his comorbids including his dialysis per the Renal Service. 3.His INR is therapeutic with his current dose of Coumadin and that will continue. Comorbids That Continue To Impact Rehabilitation Process: At this point, his comorbids have been wor ked on and do not negatively impact his rehabilitation. He is ready for discharge home. NEISHA/ASMITA Voice ID: [id number] Report ID: [id number]
[2022-10-28 05:18] LABS: Albumin 2.9 g/dL (3.4-5.0); Bilirubin Total 0.6 mg/dL (0.2-1.0); Potassium 3.9 mEq/L (3.5-5.1); Protein, Total 7.5 g/dL (6.4-8.2)
[2022-10-28 05:23] LABS: Protime INR 2.95
[2022-10-28] MEDS: INSULIN -REGULAR HUMAN 50 UNIT/0.5 ML ML SQ SCH ×2 (07:30→11:26)
[2022-10-28] MEDS: DOCUSATE NA 100 MG CAP PO SCH (08:00)
[2022-10-28] MEDS: PANTOPRAZOLE 40MG TABLET PO SCH (08:05)
[2022-10-28] MEDS: CRANBERRY FRUIT EXTRACT 200 MG CAP PO SCH (08:05)
[2022-10-28] MEDS: MIDODRINE HCL 5 MG TABLET PO SCH (08:05)
[2022-10-28] MEDS: GABAPENTIN 300 MG CAP PO SCH (08:05)
[2022-10-28] MEDS: COENZYME Q10- 200 MG CAP PO SCH (08:05)
[2022-10-28 08:06] VITALS: BP 117/61
[2022-10-28] MEDS: MULTIVITAMINS,THERAPEUT 1 TAB PO SCH (08:06)
[2022-10-28] MEDS: CLOPIDOGREL 75 MG TABLET PO SCH (08:06)
[2022-10-28] MEDS: BUMETANIDE 1 MG TABLET PO SCH (08:06)
[2022-10-28] MEDS: FERROUS SULFATE 325 MG TAB PO SCH (08:06)
[2022-10-28 10:41] VITALS: TEMP 96.8
--- NOTE | 2022-10-28 11:40 | P.PN ---
Nephrology note: (S) Pt reports doing fair, denies dyspnea, CP. Going home today. (O) Vitals reviewed in the EMR General: NAD, appears chronically ill HEENT: Atraumatic, sclera anicteric Neck: Supple Respiratory: Poor resp effort, no rales or rhonchi Cardiovascular: Regular rate/rhythm mostly without cardiac gallop heart sound appreciated, upper chest MEDICAL EDUCATOR-D, b/l 2+ pitting edema Gastrointestinal: Soft and benign, Non-distended Musculoskeletal: shins are non tender, ROM not tested, Lt UE AVG Integumentary: No rashes, xerosis Neurological: Normal speech, awake & alert, non focal Laboratory Data (last 24 hrs) Reviewed in the EMR Conclusions/Impression: Recently declared ESRD and initiated on HD in the setting of reported progressive CKD and his chronic co-morbidities -Tolerating HD ok, will cont iHD MWF, today's HD session to be done back at his OP unit Severe ischemic cardiomyopathy with 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 F/u with Cardiology given findings on recent LHC. Monitor for any anginal equivalent or other. Chronic hypotension, unspecified -Cont Midodrine S/p fall with comminuted Rt trochanteric fracture -Cont rehab, f/u with ortho, high surgical risk pt Anemia 2nd to CKD, chronic illnesses -Target Hb of 10-11 Shlomo Dietz MD, CATHERINE
[2022-10-28] MEDS: HYDROCODONE/APAP 7.5/325 MG TAB PO PRN (12:01)
--- NOTE | 2022-10-31 18:12 | DS ---
Date of Discharge: 10/28/2022 Discharge Condition: Good. Discharge Diagnoses: Right greater trochanter fracture with mild displacement. End-stage renal dise ase, on hemodialysis. Dyslipidemia. Thrombocytopenia. Urinary tract infection. Peripheral artery disease. Allergies: PREDNISONE, METOPROLOL, QUETIAPINE. Diet: Regular. Weightbearing Status: As tolerated. Medications: Tylenol 650 every 6 hours. [place] 5/325 every 6 hours as needed. Lipitor 80 mg at bedt jim. Bumex 1 mg daily. Plavix 75 mg daily. Coenzyme Q10 200 mg daily. Lanoxin 0.125 mg daily. Co lace 100 mg twice daily. Retacrit 10,000 units subcutaneously Wednesday, Wednesday, Wednesday with hemodia lysis. Ferrous sulfate 325 mg daily. Gabapentin 300 mg twice daily. He received Levaquin _ 250 mg daily. Midodrine 5 mg twice daily. Protonix 40 mg daily. Renvela 800 mg 3 times daily. S enokot S mg daily. Coumadin 5 mg daily. Laboratory Studies: At discharge, hemoglobin was 9.5, white blood cell count 4.6, platelets 136. IN R was 2.95 and for the last 3 days that was between 2.25 and 2.95. Sodium 134, potassium 3.9, chlori de 99, BUN elevated to 101, creatinine 4.29. Glucose ranged from 149 to 306. Calcium 7.8, AST 25, A LT 22, alkaline phosphatase is 97. Hepatitis B surface antigen and antibody all unremarkable. X-ray And Imaging: None. Patient was followed by the Renal Service while hospitalized and performed hemodialysis 3 times weekl y. Hospital Course: Mr. Miles is a 76-year-old patient with multiple medical problems including coron ariadna artery disease, status post multivessel bypass; paroxysmal atrial fibrillation; hypertension; dys lipidemia; diabetes mellitus with stage 4 kidney disease on hemodialysis Wednesday, Wednesday, Wednesday, w ho fell on 10/12/2022. Was found by his spouse and was found to have right greater trochanteric frac ture without intertrochanteric extension. Orthopedic Service evaluated the patient and determined th at surgery was not necessary that he would heal by secondary intention. He was therefore admitted to the inpatient rehabilitation unit for physical and occupational therapy and to have his medical need s managed in addition to his dialysis. Throughout hospitalization, maintained in a febrile status. He had dialysis 3 times weekly. He did not have any significant issues. Medications were managed fo r pain, for sleep and he had good bowel movements without any issues. Progress Made With His Physical And Occupational Therapy: By discharge, his gait, he ambulated 350 f eet with good tolerance on multiple surfaces without difficulty. He was up and down 15 steps with go od tolerance. Car transfer done without any difficulty with a rolling walker. He did meet all of hi s functional goals and was discharged home with recommendation to continue with his therapy. Durable medical equipment needs were met. Regarding his occupational therapy, he did have poor balance, poo r safety awareness, bathing with handheld shower was at modified independence. Upper body dressing, modified independence. He did have poor vision, poor balance, poor trunk control, and poor strength. He did meet all of his established goals and it was determined that he did not require additional o ccupational therapy. Regarding his speech therapy, as noted, he is legally blind and uses magnifying glasses especially to help with reading. His conversation was 100% intelligible with word sentences and fluency. He did score 15 on the BIMS and 28 on the MoCA test. Followup: Will be with his orthopedic surgeon and primary care physician as scheduled. NEISHA/ASMITA Voice ID: [id number] Report ID: [id number]
== END 2022-10-28 13:20 | disposition home health service (06) | DRG 559 ==
LOC: 5TH 10:25
PROVIDERS: ADMIT Psychiatry & Neurology Neurology with Special Qualifications in Child Neurology; ATTEND Psychiatry & Neurology Neurology with Special Qualifications in Child Neurology
PROC: 5A1D70Z Performance of Urinary Filtration, Intermittent, Less than 6 Hours Per Day (ICD-10-PCS; principal; 2022-10-21)
PROC: 5A1D70Z Performance of Urinary Filtration, Intermittent, Less than 6 Hours Per Day (ICD-10-PCS; 2022-10-23)
PROC: 5A1D70Z Performance of Urinary Filtration, Intermittent, Less than 6 Hours Per Day (ICD-10-PCS; 2022-10-26)
DX: S72.141D Displaced intertrochanteric fracture of right femur, subsequent encounter for closed fracture with routine healing (principal); N18.6 End stage renal disease; N39.0 Urinary tract infection, site not specified; I13.2 Hypertensive heart and chronic kidney disease with heart failure and with stage 5 chronic kidney disease, or end stage renal disease; I50.42 Chronic combined systolic (congestive) and diastolic (congestive) heart failure; I25.10 Atherosclerotic heart disease of native coronary artery without angina pectoris; I48.0 Paroxysmal atrial fibrillation; E11.22 Type 2 diabetes mellitus with diabetic chronic kidney disease; E78.5 Hyperlipidemia, unspecified; D69.6 Thrombocytopenia, unspecified; I73.9 Peripheral vascular disease, unspecified; K59.00 Constipation, unspecified; I95.89 Other hypotension; D63.1 Anemia in chronic kidney disease; I25.5 Ischemic cardiomyopathy; Z95.1 Presence of aortocoronary bypass graft; Z99.2 Dependence on renal dialysis; Z86.73 Personal history of transient ischemic attack (TIA), and cerebral infarction without residual deficits
CPT/HCPCS: 36415; 80048; 80053; 80069; 81001; 82040; 82533; 82947; 83735; 83880; 84100; 84134; 84550; 85018; 85025; 85610; 86704; 86706; 87086; 87088; 87340; 90935; 92523; 94010; 97110; 97112; 97116; 97129; 97161; 97165; 97530; J1644; J1815; P9047